=== PATIENT | male | born 1945 | race Caucasian/White ===

== ENCOUNTER 2019-06-27 06:00 | Outpatient (RCR) | payer OTHER, MEDICARE, SELFPAY | END 2019-07-27 00:01 | LOC: PULRHB 06:00 | PROVIDERS: Family Provider Internal Medicine; Visit Provider Internal Medicine Pulmonary Disease | DX: J44.9 Chronic obstructive pulmonary disease, unspecified (principal) | CPT/HCPCS: G0424 ×9 ==

== ENCOUNTER 2019-07-28 06:00 | Outpatient (RCR) | payer OTHER, MEDICARE, SELFPAY | END 2019-08-27 23:59 | disposition home or self-care (01) | LOC: PULRHB 06:00 | PROVIDERS: Family Provider Nurse Practitioner Family; PCP Nurse Practitioner Family; Visit Provider Internal Medicine | DX: J44.9 Chronic obstructive pulmonary disease, unspecified (principal) | CPT/HCPCS: G0424 ==

== ENCOUNTER 2019-08-31 14:14 | Outpatient (RCR) | payer OTHER, MEDICARE, SELFPAY | END 2019-09-25 23:59 | disposition home or self-care (01) | LOC: PULRHB 14:14 | PROVIDERS: Family Provider Nurse Practitioner Family; PCP Nurse Practitioner Family; Visit Provider Internal Medicine | DX: J44.9 Chronic obstructive pulmonary disease, unspecified (principal) | CPT/HCPCS: G0424 ==

== ENCOUNTER 2019-09-16 12:55 | Outpatient (CLI) | payer OTHER, MEDICARE, SELFPAY ==
--- NOTE | 2019-09-16 13:17 | XR_ITS ---
WS: [id number] CHEST 2 VIEWS HISTORY: CHEST PAIN, SHORTNESS OF BREATH COMPARISON: 07/23/2019 and 07/18/2019 Lungs: Pulmonary hyperinflation. Asymmetric thickening of the pleura at the RIGHT apex. Pleural thick ening and nodularity perhaps has progressed over the last few examinations. There is small amount of pleural thickening at the LEFT apex but this is asymmetric to the RIGHT. Marked flattening of the jovita phragm. No pleural effusion. Cardiac size: Normal. Mediastinum/Aorta: Mild atherosclerosis aorta. Bones: Increase in thoracic kyphosis. XR/XR chest 2V* [id number] IMPRESSION: 1. Continued progression of RIGHT apical pleural thickening and nodularity sin ce 07/18/2019. Recommend follow-up chest CT with IV contrast. Apical neoplasm n eeds to be excluded. 2. Asymmetric minimal pleural thickening at the LEFT apex is stable.
== END 2019-09-16 12:56 | disposition home or self-care (01) ==
LOC: RADWPI 13:01
PROVIDERS: Family Provider Nurse Practitioner Family; PCP Internal Medicine; Visit Provider Internal Medicine Pulmonary Disease
DX: R07.9 Chest pain, unspecified (principal); R06.02 Shortness of breath
CPT/HCPCS: 71046

== ENCOUNTER 2019-09-16 19:27 | Emergency (ER) | payer OTHER, MEDICARE, SELFPAY ==
--- NOTE | 2019-09-16 19:32 | ECG_ITS ---
Measurements Intervals [place] Rate: 89 P: [place]: 0 QRS: 48 QRSD: 135 T: 103 QT: 379 QTc: 463 ATRIAL FIBRILLATION LEFT BUNDLE BRANCH BLOCK [120+ ms QRS DURATION, 80+ ms Q/S IN V1/V2, 85+ ms R IN I/aV I/aVL/V5/V6] Compared to ECG 07/23/2019 12:38:10 Sinus rhythm no longer present Ventricular premature complex(es) no longer present Electronically Signed On 09-17-2019 14:12:25 ROUTER OPERATOR PIN by Julio Cesar Garcia M.D. [email or web address]
--- NOTE | 2019-09-16 19:32 | XR_ITS ---
WS: [id number] XR chest 1V portable [id number] REASON FOR EXAM: elevated blood pressure FINDINGS: Hyper aerated lungs are seen. Along the right apex the lung there is again noted pleural th ickening and scarring. This is somewhat similar to the previous exam of September 16, 2019. We continu e to recommend CT evaluation to rule out tuberculosis or active process. The heart and mediastinum were normal there is arteriosclerotic changes seen in the arch of the aorta . The hilum was were normal bilaterally There is mild thickening of the apex on the left side also. XR/XR chest 1V portable [id number] IMPRESSION: Chronic obstructive pulmonary disease. Apical thickening particularly the right upper apical portion we recommend foll ow-up with CT be made.
[2019-09-16 19:51] VITALS: BP 153/111; PULSE 111; RESP 16; TEMP 36.9; O2SAT 90; BMI 22.7
[2019-09-16 20:06] LABS: Basophils # 0.1 10^3/uL (0.0-0.1); Basophils % 1.4 %; Eosinophils # 0.3 10^3/uL (0.0-0.8); Hematocrit 39.7 % (42.0-52.0); Hemoglobin 12.1 g/dL (11.7-16.6); Lymphocytes # 2.1 10^3/uL (0.8-4.8); Lymphocytes % 33.1 %; Mean Corpuscular HGB Conc 30.5 g/dL (30.0-36.0); Mean Corpuscular Hemoglobin 25.3 pg (28.0-34.0); Mean Corpuscular Volume 82.9 fL (80-94); Mean Platelet Volume 11.6 fL (7.4-10.4); Monocytes # 0.7 10^3/uL (0.2-0.9); Neutrophils # 3.1 10^3/uL (1.8-7.7); Neutrophils % 48.9 %; Nucleated Red Blood Cells % 0 %; Platelet Count 248 10^3/cmm (130-400); Red Blood Count 4.79 10^6/uL (4.1-5.3); Red Cell Distribution Width 15.4 % (12.1-15.1); White Blood Count 6.3 10^3/uL (4.0-10.0)
[2019-09-16 20:24] LABS: Alanine Aminotransferase 19 U/L (0-41); Alkaline Phosphatase 136 IU/L (40-130); Aspartate Amino Transferase 19 U/L (0-40); Blood Urea Nitrogen 23 mg/dL (8-23); Calcium 10.1 mg/dL (8.5-10.5); Carbon Dioxide 28 mmol/L (22-29); Chloride 100 mmol/L (98-107); Globulin 3.5 g/dL (1.3-4.6); Glucose 218 mg/dL (65-115); Sodium 139 mmol/L (136-145); Total Bilirubin 0.2 mg/dL (0.15-1.2); Total Protein 7.5 g/dL (6.6-8.7); Troponin(5th) Baseline 15 ng/mL (0-15)
--- NOTE | 2019-09-16 21:22 | W.ED.GENADLT ---
HPI - General Adult General: Chief complaint: General Medical Stated complaint: high bp Time Seen by Provider: 09/16/19 21:10 Source: patient Mode of arrival: ambulatory Limitations: no limitations History of Present Illness: HPI narrative: Patient comes in today with concern for elevated blood pressure this evening. Patient noticed that his blood pressure had started going up. Patient had had a recent increase in his medication due to his blood pressure being poorly controlled. Patient denies any increase in shortness of breath, chest pain, or severe headache. Patient did state that his face felt a little flushed. Review of Systems General: Reports: 10 or more systems reviewed and unremarkable except in HPI and below PFSH ED PFS: Medical History (Updated 09/16/19 @ 21:59 by ABIEL Garcias) Anticoagulation adequate Eliquis ASHD (arteriosclerotic heart disease) Atrial fibrillation Carotid stenosis, bilateral CHF (congestive heart failure) CKD (chronic kidney disease) COPD (chronic obstructive pulmonary disease) Diabetes 1.5, managed as type 2 HTN (hypertension) Hyperlipidemia LBBB (left bundle branch block) MOSHE (obstructive sleep apnea) Surgical History S/P carotid endarterectomy Social History Smoking and tobacco status: never smoked Alcohol intake: never Household members: spouse Marital status: service: Yes Physical Exam Const: COMMON NORMALS: no apparent distress and oriented x3 GENERAL APPEARANCE: cooperative HENMT: COMMON NORMALS: normocephalic, external ears normal, EAC's normal, TM's normal bilaterally and external nose normal HEAD & SCALP: normal to inspection and normocephalic FACE & SINUS: normal facial exam NOSE: external nose normal GENERAL EAR: hearing not grossly impaired EXTERNAL EAR: Yes external ears normal EXTERNAL AUDITORY CANAL: EAC's normal TYMPANIC MEMBRANE: TM's normal bilaterally MOUTH: oral and palatal mucosa normal THROAT: posterior oropharynx normal Eye: COMMON NORMALS: PERRL and EOMs intact bilaterally PUPIL: Yes PERRL Neck/C-Spine: COMMON NORMALS: full ROM and no lymphadenopathy Lymph: LYMPHATIC: no lymphedema noted Chest: COMMONS NORMALS: inspection of chest normal and palpation of chest normal Resp: COMMON NORMALS: normal respiratory effort and clear to auscultation bilaterally AUSCULTATION: clear to auscultation bilaterally Cardio: COMMON NORMALS: regular rate and regular rhythm RATE: regular rate RHYTHM: regular rhythm GI: COMMON NORMALS: normal to inspection, nondistended, normoactive bowel sounds and non-tender : COMMON NORMALS: Yes no CVA tenderness BLADDER/KIDNEY EXAM: Yes no CVA tenderness Back/Pelvis: COMMON NORMALS: no CVA tenderness and thoracic and lumbar spine normal to inspection Extremity: COMMON NORMALS: normal to inspection GENERAL: No edema Neuro: COMMON NORMALS: oriented x3, moves all extremities and no focal motor deficits Psych: COMMON NORMALS: mental status grossly normal and cooperative Skin: COMMON NORMALS: no rashes or lesions noted GENERAL SKIN EXAM: no rashes or lesions noted Course Vital Signs: Vital signs: Vital Signs Temperature 98.5 F 09/16/19 19:51 Pulse Rate 111 H 09/16/19 19:51 Respiratory Rate 16 09/16/19 19:51 Blood Pressure 153/111 09/16/19 19:51 Pulse Oximetry 90 09/16/19 19:51 MDM - General Adult MDM Narrative: Medical decision making narrative: Patient comes in today for concerns of elevated blood pressure. Patient reports that he is no complaints of headache, chest pain, or shortness of breath. Patient does have a history of atrial fib and COPD. On exam patient appears well. Lungs are clear to auscultation. Heart rates are regular. Abdomen soft nontender. Skin is warm and dry. Differential diagnosis includes ACS, cardiac arrhythmia, atrial fib, hypertensive crisis, anxiety. Vital signs stabilized and remained normal. High blood pressure was at 155 systolic but came down to 138 systolic. Chest x-ray noted no infiltrates or effusions. Laboratory values were normal troponin was normal. EKG showed atrial fib in the 80s. Reviewed exam with patient recommended continue routine treatment at home and to return to the ER as needed for severe headache, shortness of breath, or chest pain. Patient reported understanding and agreed to plan. Lab Data: Labs: Lab Results 09/16/19 09/16/19 09/16/19 Range/Units 19:58 19:58 19:58 WBC 6.3 (4.0-10.0) 10^3/ uL RBC 4.79 (4.1-5.3) 10^6/u L Hgb 12.1 (11.7-16.6) g/dL Hct 39.7 L (42.0-52.0) % MCV 82.9 (80-94) fL MCH 25.3 L (28.0-34.0) pg MCHC 30.5 (30.0-36.0) g/dL RDW 15.4 H (12.1-15.1) % Plt Count 248 (130-400) 10^3/c mm MPV 11.6 H (7.4-10.4) fL Neut % (Auto) 48.9 % Lymph % (Auto) 33.1 % Hood % (Auto) 11.0 % Eos % (Auto) 5.0 % Baso % (Auto) 1.4 % Neut # (Auto) 3.1 (1.8-7.7) 10^3/u L Lymph # (Auto) 2.1 (0.8-4.8) 10^3/u L Hood # (Auto) 0.7 (0.2-0.9) 10^3/u L Eos # (Auto) 0.3 (0.0-0.8) 10^3/u L Baso # (Auto) 0.1 (0.0-0.1) 10^3/u L Nucleated RBC % (a uto) 0 % Nucleated RBCs # 0.0 /100WBC Sodium 139 (136-145) mmol/L Potassium 4.0 (3.5-5.1) mmol/L Chloride 100 (98-107) mmol/L Carbon Dioxide 28 (22-29) mmol/L Anion Gap 15.0 (5-19) BUN 23 (8-23) mg/dL Creatinine 1.1 (0.7-1.2) mg/dL Glucose 218 H (65-115) mg/dL Calcium 10.1 (8.5-10.5) mg/dL Total Bilirubin 0.2 (0.15-1.2) mg/dL AST 19 (0-40) U/L ALT 19 (0-41) U/L Alkaline Phosphata se 136 H (40-130) IU/L Troponin T Baselin e 15 (0-15) ng/mL Total Protein 7.5 (6.6-8.7) g/dL Albumin 4.0 (3.5-5.2) g/dL Globulin 3.5 (1.3-4.6) g/dL EKG Data^: EKG 1: Attestation: I personally reviewed and interpreted this EKG as follows: (2131, a-fib, rate 89, no ST elevation, ) Discharge Plan Discharge Patient Disposition: Home, Self-Care Clinical Impression: Hypertension Qualifiers: Hypertension type: unspecified Qualified Code(s): I10 - Essential (primary) hypertension Atrial fibrillation Qualifiers: Atrial fibrillation type: unspecified chronic Qualified Code(s): I48.20 - Chronic atrial fibrillation, unspecified Condition: Stable Prescriptions: No Action Eliquis 5 mg tablet 5 mg PO BID RF: 0 atorvastatin 20 mg tablet 20 mg PO QDAY RF: 0 Daliresp 500 mcg tablet 500 mcg PO QDAY RF: 0 Spiriva with HandiHaler 18 mcg capsule, w/inhalation device 1 cap INHALATION QDAY RF: 0 Symbicort 160-4.5 mcg/actuation HFA aerosol inhaler 2 puff INHALATION BID RF: 0 metformin 500 mg tablet 500 mg PO BID RF: 0 lisinopril 40 mg tablet 40 mg PO QDAY RF: 0 omeprazole 20 mg capsule,delayed release(DR/EC) 20 mg PO QDAY RF: 0 alendronate 70 mg tablet 70 mg PO .WEEKLY RF: 0 amlodipine 10 mg tablet 10 mg PO QDAY RF: 0 metoprolol tartrate 25 mg tablet 50 mg PO BID RF: 0 furosemide 40 mg tablet 40 mg PO DAILY RF: 0 Discharge Orders: Discharge Order (Routine); Ordered 09/16/19 Ordered By: Hill Ayala Referrals: Cr Connor [Primary Care Provider] - Jina Hooper FNP-C [Family Provider] - Discharge Diet: Usual diet Discharge Activity: Resume usual activity Patient Instructions: Hypertension (ED) Activity Restrictions/Additional Instructions: Home and rest Activity as tolerated Continue with routine medications Follow-up with primary care in one week Return to ER for severe headache, increased shortness of breath or chest pain Coding Level of Care Code ED Supply Chain Development Manager for Chg Fwd Exam Comprehensive
[2019-09-16 22:22] VITALS: BP 136/93; PULSE 81; RESP 16; TEMP 36.7; O2SAT 98
[2019-09-16 23:21] LABS: Troponin 5 2HR 15.65 ng/mL (0-15); Troponin 5 2HR Delta 0.65 ABS# (0-10)
[2019-09-16 23:58] LABS: NT Pro B Type Natriuretic Pept 184 pg/mL (0-125)
== END 2019-09-16 22:23 | disposition home or self-care (01) ==
PROVIDERS: Emergency Provider Nurse Practitioner Family; Family Provider Nurse Practitioner Family; PCP Internal Medicine
DX: I13.0 Hypertensive heart and chronic kidney disease with heart failure and stage 1 through stage 4 chronic kidney disease, or unspecified chronic kidney disease (principal); N18.9 Chronic kidney disease, unspecified; I50.9 Heart failure, unspecified; I25.10 Atherosclerotic heart disease of native coronary artery without angina pectoris; I48.91 Unspecified atrial fibrillation; J44.9 Chronic obstructive pulmonary disease, unspecified; E13.22 Other specified diabetes mellitus with diabetic chronic kidney disease; E78.5 Hyperlipidemia, unspecified; Z79.01 Long term (current) use of anticoagulants; Z79.51 Long term (current) use of inhaled steroids; Z79.84 Long term (current) use of oral hypoglycemic drugs
CPT/HCPCS: 71045; 80053; 83880; 84484; 85025; 93005; 99281; 99283

== ENCOUNTER 2019-09-27 12:20 | Emergency (ER) | payer OTHER, MEDICARE, SELFPAY ==
[2019-09-27 13:03] VITALS: BP 149/91; PULSE 68; RESP 16; TEMP 36.6; O2SAT 97; BMI 23.0
--- NOTE | 2019-09-27 13:10 | XR_ITS ---
WS: [id number] XR foot LT min 3V* [id number] REASON FOR EXAM: injury and pain FINDINGS: The phalanges, metatarsals, tarsals show no fractures or other dyscrasias. A prominent calcaneal spur is noted. XR/XR foot LT min 3V* [id number] IMPRESSION: Calcaneal spur.
--- NOTE | 2019-09-27 14:53 | ED_ITS ---
HPI - Extremity Problem General: Chief complaint: Extremity Injury, Lower Stated complaint: L foot injury Time Seen by Provider: 09/27/19 14:52 History of Present Illness: HPI Narrative: Patient is a 74-year-old male comes to the ED with left foot pain. Patient has a past medical history of A. fib, COPD and hypertension. Patient states that on Friday evening he was working in his garage and a 50+ pound piece of steel fell from counter height and hit patient's left midfoot region. He now has some pain when he walks and his left foot is swollen and has some ecchymosis. Patient is able to bear weight and states that the pain is only about a 4-5 out of 10 currently. He does not like taking any pain medications and does not want any pain meds while here in the ED. Associated symptoms: Deny chest pain, fever(s) or rash Review of Systems Const: Denies: fever, chills or fatigue Eyes: Denies: change in vision or eye discomfort ENMT: Denies: throat pain, painful swallowing, nasal discharge or nasal congestion Card: Denies: chest pain, palpitations, edema, swelling of feet/ankles, shortness of breath on exertion or shortness of breath when lying down Resp: Denies: shortness of breath, productive cough or non-productive cough GI: Denies: abdominal pain, nausea, vomiting, diarrhea, constipation or blood in stool : Denies: flank pain, difficulty urinating, painful urination or blood in urine Musc: Reports: extremity pain (Left Foot) and extremity swelling (Left foot); Denies: neck pain or back pain Skin/Breast: Denies: rash or new lesion Neuro: Denies: headache, numbness in extremities or weakness in extremities [facility] ED PFSH: Medical History Anticoagulation adequate Eliquis ASHD (arteriosclerotic heart disease) Atrial fibrillation Carotid stenosis, bilateral CHF (congestive heart failure) CKD (chronic kidney disease) COPD (chronic obstructive pulmonary disease) Diabetes 1.5, managed as type 2 HTN (hypertension) Hyperlipidemia LBBB (left bundle branch block) MOSHE (obstructive sleep apnea) Surgical History S/P carotid endarterectomy Family History Mother , AGE 64 Diabetes Cancer Father , AGE 62 CAD (coronary artery disease) Social History Smoking and tobacco status: never smoked Alcohol intake: never Household members: spouse Marital status: service: Yes Physical Exam Const: COMMON NORMALS: oriented x3 HENMT: COMMON NORMALS: normocephalic HEAD & SCALP: normocephalic MOUTH: oral and palatal mucosa normal THROAT: posterior oropharynx normal and uvula midline Neck/C-Spine: COMMON NORMALS: supple GENERAL: Yes normal visual inspection Resp: COMMON NORMALS: normal respiratory effort, no retractions, no use of accessory muscles and clear to auscultation bilaterally AUSCULTATION: clear to auscultation bilaterally Cardio: COMMON NORMALS: regular rate, regular rhythm, S1 normal heart sound, S2 normal heart sound, no gallops, no clicks, no murmurs and peripheral pulses 2+ throughout RATE: regular rate RHYTHM: regular rhythm HEART SOUNDS: S1 normal and S2 normal PERIPHERAL PULSES: pulses 2+ throughout GI: COMMON NORMALS: normal to inspection, nondistended, normoactive bowel sounds, soft to palpation, non-tender and no masses PALPATION: Yes soft : COMMON NORMALS: Yes no CVA tenderness BLADDER/KIDNEY EXAM: Yes no CVA tenderness Back/Pelvis: COMMON NORMALS: no CVA tenderness Extremity: LEFT LOWER EXTREMITY: Yes foot & digits (swelling and ecchymosis ) Left foot and digits: Yes inspection, Yes palpation (mild tenderness over medial mid foot.), Yes ROM (normal but some pain) and Yes neurovascular exam (intact) Neuro: COMMON NORMALS: oriented x3 and moves all extremities Course Consultations: Consultation #1: I spoke with radiologist and we looked over the images together. He did think there is a possibility that there could be a metatarsal fracture but was not able to say that for sure. He thought if patient clinically looks like he probably fractured it that he would treat it like a fracture. He stated he thinks the patient should come back and get imaging again in the next week to see if there is any changes. Vital Signs: Vital signs: Vital Signs Temperature 97.8 F 09/27/19 13:03 Pulse Rate 68 09/27/19 13:03 Respiratory Rate 18 09/27/19 16:59 Blood Pressure 149/91 09/27/19 13:03 Pulse Oximetry 94 09/27/19 16:59 MDM - Extremity (Nontraumatic) Imaging Data^: Xray Ortho: Attestation: I personally reviewed and interpreted this imaging study as follows: My impression: Possible second metatarsal proximal head fracture. Radiologist's impression: [address] [address] XRay Report Signed Patient: Jonathan Sultana Unit #: [id number] : 1945 Age/Sex: 74 / M ADM Date: 09/27/19 Loc: ER Room/Bed: Attending Dr: Ordering Provider/Ordering MD: Flaquito Lewis Date of Service: 09/27/19 Procedure(s): XR foot LT min 3V* 49000 Accession Number(s): [id number] Report Number: [id number] WS: [id number] XR foot LT min 3V* [id number] REASON FOR EXAM: injury and pain FINDINGS: The phalanges, metatarsals, tarsals show no fractures or other dyscrasias. A prominent calcaneal spur is noted. XR/XR foot LT min 3V* 11579 IMPRESSION: Calcaneal spur. Dictated By: Bryan Norris DO Signed By: Bryan Norris DO Signed Date/Time: 09/27/19 1344 DD/ 1343 Discharge Plan Discharge Patient Disposition: Home, Self-Care Clinical Impression: Metatarsal stress fracture of left foot Qualifiers: Encounter type: initial encounter Qualified Code(s): M84.375A - Stress fracture, left foot, initial encounter for fracture Condition: Stable Prescriptions: No Action Eliquis 5 mg tablet 5 mg PO BID RF: 0 atorvastatin 20 mg tablet 20 mg PO QDAY RF: 0 Daliresp 500 mcg tablet 500 mcg PO QDAY RF: 0 Spiriva with HandiHaler 18 mcg capsule, w/inhalation device 1 cap INHALATION QDAY RF: 0 Symbicort 160-4.5 mcg/actuation HFA aerosol inhaler 2 puff INHALATION BID RF: 0 metformin 500 mg tablet 500 mg PO BID RF: 0 lisinopril 40 mg tablet 40 mg PO QDAY RF: 0 omeprazole 20 mg capsule,delayed release(DR/EC) 20 mg PO QDAY RF: 0 alendronate 70 mg tablet 70 mg PO .WEEKLY RF: 0 amlodipine 10 mg tablet 10 mg PO QDAY RF: 0 metoprolol tartrate 25 mg tablet 50 mg PO BID RF: 0 furosemide 40 mg tablet 40 mg PO DAILY RF: 0 Discharge Orders: Discharge Order (Routine); Ordered 09/27/19 Ordered By: Flaquito Lewis Referrals: Cr Connor [Primary Care Provider] - Jina Hooper FNP-C [Family Provider] - Discharge Diet: Regular Discharge Activity: Use walker/crutches as instructed Patient Instructions: Foot Fracture in Adults (ED) Activity Restrictions/Additional Instructions: Wound see orthopedic and or podiatry will be calling you to set up an appointment in the next several days. Wear boot daily and weight-bear as tolerated. Take [id number] Tylenol for pain. Discharge Date/Time: 09/27/19 16:59 Coding Level of Care Code ED Pediatric Psychologist for Rehanag Fwd Exam Comprehensive
[2019-09-27 15:00] VITALS: RESP 16
--- NOTE | 2019-09-27 15:47 | DCPLANNER ---
stallion manager was asked to schedule a follow up appointment for patient with ortho. Case manger called the ortho clinic, spoke with Pat, gave clinic patients information. stallion manager was told that patients information would be printed and reviewed. Clinic will call showcase trimmer and patient with appointment information.
[2019-09-27 16:59] VITALS: RESP 18; O2SAT 94
--- NOTE | 2019-10-05 15:05 | DCPLANNER ---
Patient has a follow up appointment scheduled for Friday, October 18, [address] ravindra [address] Hinkle. Clinic will call patient with appointment information.
--- NOTE | 2019-10-22 14:39 | DCPLANNER ---
Patient did attend appointment scheduled for 10.18.19 with ortho.
== END 2019-09-27 16:59 | disposition home or self-care (01) ==
PROVIDERS: Emergency Provider Physician Assistant; Family Provider Nurse Practitioner Family; PCP Internal Medicine
DX: M84.375A Stress fracture, left foot, initial encounter for fracture (principal); I25.10 Atherosclerotic heart disease of native coronary artery without angina pectoris; I48.91 Unspecified atrial fibrillation; I13.0 Hypertensive heart and chronic kidney disease with heart failure and stage 1 through stage 4 chronic kidney disease, or unspecified chronic kidney disease; I50.9 Heart failure, unspecified; E13.22 Other specified diabetes mellitus with diabetic chronic kidney disease; N18.9 Chronic kidney disease, unspecified; J44.9 Chronic obstructive pulmonary disease, unspecified; E78.5 Hyperlipidemia, unspecified; Z79.01 Long term (current) use of anticoagulants; Z79.51 Long term (current) use of inhaled steroids; Z79.84 Long term (current) use of oral hypoglycemic drugs; W20.8XXA Other cause of strike by thrown, projected or falling object, initial encounter; Y92.015 Private garage of single-family (private) house as the place of occurrence of the external cause
CPT/HCPCS: 73630; 99281; 99283; L4361

== ENCOUNTER → 2019-10-18 14:34 | Outpatient (BNVA) | payer OTHER, SELFPAY | PROVIDERS: Family Provider Nurse Practitioner Family; PCP Internal Medicine; Referring Provider Physician Assistant; Visit Provider Podiatrist Foot & Ankle Surgery | DX: M79.672 Pain in left foot (principal) | CPT/HCPCS: 73630 ==

== ENCOUNTER 2019-12-01 23:06 | Inpatient (IN) | payer OTHER, MEDICARE, SELFPAY ==
[2019-12-01 23:17] VITALS: BP 166/121; PULSE 128; RESP 18; TEMP 36.6; O2SAT 99; BMI 23.7
--- NOTE | 2019-12-01 23:19 | XR_ITS ---
WS: [id number] CHEST XRAY TECHNIQUE: Portable chest. CLINICAL INFORMATION: PALPS COMPARISON: September 16, 2019 FINDINGS: Heart: Normal cardiac silhouette. Lungs: Advanced chronic emphysematous changes. No acute pulmonary infiltrates. Interstitial fibrosis/ subsegmental atelectasis in the lung bases. Trace pleural fluid/pleural thickening. Bones: Normal visualized bony structures. XR/XR chest 1V portable [id number] IMPRESSION: 1. Advanced chronic emphysematous changes. 2. No focal pneumonia. 3. Stable appearing interstitial fibrosis in the lung bases. Trace pleural flu id/pleural thickening.
--- NOTE | 2019-12-01 23:19 | PC.NURSE ---
PATIENT STATES HE STARTED HAVING SHORTNESS OF BREATH AND HE STARTED HAVING A RACING HEART . PATIENT STATES THIS STARTED AT 1830 TONIGHT. PATIENT STATES HE IS ON BLOOD THINNERS. PATIENT STATES HE HAD TWO EPISODES OF HIGH HEART RATE TODAY.
--- NOTE | 2019-12-01 23:20 | ECG_ITS ---
Measurements Intervals [place] Rate: 98 P: [place]: 0 QRS: 75 QRSD: 142 T: 79 QT: 354 QTc: 454 ATRIAL FIBRILLATION LEFT BUNDLE BRANCH BLOCK Compared to ECG 09/16/2019 21:31:53 No significant changes Electronically Signed On 12-02-2019 14:17:10 CDT by Lauren Spangler M.D. [id number]
[2019-12-01 23:30] VITALS: BP 145/92; PULSE 107; RESP 14; O2SAT 99
[2019-12-01] MEDS: metoprolol tartrate 1 mg/1 mL SDV 5 mL 5 MG IV (23:36)
--- NOTE | 2019-12-01 23:40 | W.ED.SOB ---
HPI - SOB/Dyspnea General: Chief Complaint: Shortness of Breath/Dyspnea Stated Complaint: high hr Time Seen by Provider: 12/01/19 23:15 History of Present Illness: HPI Narrative: Jonathan is a very nice 74-year-old male who comes in complaining of intermittent rapid palpitations and shortness of breath. Patient states he has had similar symptoms before related to his atrial fibrillation. He denies any chest pain, syncope or near syncopal type symptoms. He did take his nighttime medications including metoprolol but is still having the symptoms intermittently. He denies missing any medications, any increased caffeine intake and the patient is chronically anticoagulated. Associated symptoms: Reports palpitations; Deny abdominal pain, chest congestion, chest pain, diaphoresis, dizziness, extremity pain, fever(s), hemoptysis, nausea, orthopnea, polydipsia, syncope or vomiting Review of Systems General: Reports: other (negative unless marked) Const: Denies: fever, chills, body aches, fatigue, malaise or diaphoresis Eyes: Denies: change in vision or blurry vision ENMT: Denies: throat pain, painful swallowing, hoarseness, ear pain, ear discharge, Change in hearing or nasal discharge Card: Reports: palpitations; Denies: chest pain, irregular heart rhythm, syncope, pre-syncope, shortness of breath on exertion or shortness of breath when lying down Resp: Reports: shortness of breath; Denies: productive cough, non-productive cough, wheezing, coughing up blood or chest congestion GI: Denies: abdominal pain, nausea, vomiting, vomiting blood, coffee grounds in vomit, diarrhea, constipation, cramping, blood in stool or black tarry stool : Denies: flank pain, difficulty urinating, painful urination, urinary frequency, urinary urgency, decreased urine ouput, urinary incontinence or blood in urine Musc: Denies: neck pain, back pain, extremity pain, extremity swelling, joint pain, joint swelling, joint warmth or joint stiffness Skin/Breast: Denies: rash, skin tenderness or yellow skin Neuro: Denies: headache, numbness in extremities, weakness in extremities, changes in sensation, lack of coordination, difficulty walking, dizziness, vertigo or confusion Endo: Denies: excessive thirst, tired all the time, cold intolerance, excessive sweating, flushing or hot flashes Frank/Lymph: Denies: easy bruising, easy bleeding, petechiae or enlarged lymph nodes All/Imm: Denies: hives, throat swelling, tongue swelling, facial swelling or acute wheezing PFSH ED PFSH: Medical History Anticoagulation adequate Eliquis ASHD (arteriosclerotic heart disease) Atrial fibrillation Carotid stenosis, bilateral CHF (congestive heart failure) CKD (chronic kidney disease) COPD (chronic obstructive pulmonary disease) Diabetes 1.5, managed as type 2 Fracture of second metatarsal bone GERD (gastroesophageal reflux disease) HTN (hypertension) Hyperlipidemia LBBB (left bundle branch block) MOSHE (obstructive sleep apnea) RLS (restless legs syndrome) Surgical History S/P carotid endarterectomy S/P carpal tunnel release S/P sinus surgery Family History Mother , AGE 64 Diabetes Cancer Father , AGE 62 CAD (coronary artery disease) Social History Smoking and tobacco status: never smoked Alcohol intake: never Household members: spouse Marital status: service: Yes Physical Exam Const: COMMON NORMALS: no apparent distress, oriented x3, no limitations, healthy appearing and well nourished EXAM LIMITATIONS: no altered mental status GENERAL APPEARANCE: cooperative, well kempt and well developed ORIENTATION/CONSCIOUSNESS: Yes awake HENMT: COMMON NORMALS: normocephalic, head/scalp atraumatic, hearing grossly normal bilaterally, external ears normal, EAC's normal, external nose normal and moist oral mucous membranes HEAD & SCALP: normal to inspection, normocephalic and atraumatic FACE & SINUS: normal facial exam and face symmetric NOSE: external nose normal and nares normal EXTERNAL EAR: Yes external ears normal EXTERNAL AUDITORY CANAL: EAC's normal MOUTH: oral and palatal mucosa normal and tongue normal Eye: COMMON NORMALS: PERRL, EOMs intact bilaterally, conjunctivae normal and no scleral icterus GENERAL EYE: normal appearance of both eyes and normal light reflex CONJUNCTIVA: Yes conjunctivae normal SCLERA: sclerae normal CORNEA: Yes corneas normal PUPIL: Yes PERRL DIRECT OPHTHALMOSCOPY: Yes normal light reflex Neck/C-Spine: COMMON NORMALS: full ROM, no lymphadenopathy, supple, no meningeal signs and no JVD GENERAL: Yes normal visual inspection and Yes trachea midline CERVICAL SPINE: Yes cervical ROM normal Chest: COMMONS NORMALS: inspection of chest normal and palpation of chest normal Resp: COMMON NORMALS: normal respiratory effort, no retractions, no use of accessory muscles and clear to auscultation bilaterally EFFORT & INSPECTION: Yes able to speak in complete sentences AUSCULTATION: clear to auscultation bilaterally Cardio: COMMON NORMALS: no JVD, S1 normal heart sound, S2 normal heart sound, no gallops, no clicks, no murmurs and no rub JUGULAR VENOUS DISTENTION: no JVD RATE: tachycardic RHYTHM: abnormal rhythm irregularly irregular HEART SOUNDS: S1 normal and S2 normal GI: COMMON NORMALS: soft to palpation, non-tender, no hepatosplenomegaly and no masses INSPECTION: Yes normal to inspection PALPATION: Yes soft and Yes no hepatosplenomegaly : COMMON NORMALS: Yes no CVA tenderness BLADDER/KIDNEY EXAM: Yes no CVA tenderness Back/Pelvis: COMMON NORMALS: no CVA tenderness, thoracic and lumbar spine normal to inspection, no thoracic nor lumbar tenderness and thoraco-lumbar ROM normal Extremity: COMMON NORMALS: normal to inspection, full ROM, normal capillary refill, no joint enlargement, no clubbing, cyanosis or edema and no calf tenderness Neuro: COMMON NORMALS: oriented x3, CN's II-XII intact bilaterally, moves all extremities, no focal motor deficits and no sensory deficits noted MENINGEAL SIGNS: Yes no meningeal signs Psych: COMMON NORMALS: mental status grossly normal, thought process normal, cooperative, affect normal, speech normal and activity/motor behavior normal APPEARANCE: Yes well kempt SPEECH: Yes normal speech THOUGHT PROCESS: normal thought process Skin: COMMON NORMALS: no rashes or lesions noted, skin turgor normal, no jaundice, no petechiae and no mottling GENERAL SKIN EXAM: no rashes or lesions noted and turgor normal Course Vital Signs: Vital signs: Vital Signs Temperature 98.2 F 12/02/19 03:44 Pulse Rate 84 12/02/19 04:21 Respiratory Rate 18 12/02/19 04:15 Blood Pressure 150/83 12/02/19 03:44 Pulse Oximetry 98 12/02/19 04:21 MDM - SOB/Dyspnea MDM Narrative: Medical decision making narrative: The patient has been given 10 mg of IV metoprolol but his heart rate will still not slow. He is asymptomatic at rest but when he gets up he gets extremely short of breath. He is not coughing and not wheezing I do not believe this is a COPD exacerbation. Is not having chest discomfort I do not believe this is acute coronary syndrome. His BNP is high but his chest x-ray does not look like pulmonary edema and I do not hear rales on exam. I believe though he will likely need to come into the hospital for heart rate management. I reviewed the case in full with Dr. Gray, he agrees to come evaluate the patient and consider him for admission for heart rate control. Lab Data: Labs: Lab Results 12/01/19 12/01/19 12/01/19 Range/Units 23:24 23:35 23:35 WBC 10.2 H (4.0-10.0) 10^3/ uL RBC 4.70 (4.1-5.3) 10^6/u L Hgb 12.4 (11.7-16.6) g/dL Hct 39.5 L (42.0-52.0) % MCV 84.0 (80-94) fL MCH 26.4 L (28.0-34.0) pg MCHC 31.4 (30.0-36.0) g/dL RDW 15.6 H (12.1-15.1) % Plt Count 260 (130-400) 10^3/c mm MPV 11.6 H (7.4-10.4) fL Neut % (Auto) 54.1 % Lymph % (Auto) 27.2 % Marshall % (Auto) 13.9 % Eos % (Auto) 1.5 % Baso % (Auto) 1.2 % Neut # (Auto) 5.5 (1.8-7.7) 10^3/u L Lymph # (Auto) 2.8 (0.8-4.8) 10^3/u L Marshall # (Auto) 1.4 H (0.2-0.9) 10^3/u L Eos # (Auto) 0.2 (0.0-0.8) 10^3/u L Baso # (Auto) 0.1 (0.0-0.1) 10^3/u L Nucleated RBC % (a uto) 0 % Nucleated RBCs # 0.0 /100WBC PT 14.30 H (10.5-13.3) SECO NDS INR 1.08 (0.8-1.2) Sodium (136-145) mmol/L Potassium (3.5-5.1) mmol/L Chloride (98-107) mmol/L Carbon Dioxide (22-29) mmol/L Anion Gap (5-19) BUN (8-23) mg/dL Creatinine (0.7-1.2) mg/dL Glucose (65-115) mg/dL Calculated Osmolal ity (285-295) mOsm/k g Calcium (8.5-10.5) mg/dL Magnesium (1.7-2.3) mg/dL Total Bilirubin (0.15-1.2) mg/dL AST (0-40) U/L ALT (0-41) U/L Alkaline Phosphata se (40-130) IU/L Troponin T Baselin e (0-15) ng/mL Troponin T 120 [address] [place] (0-15) ng/mL Delta Troponin T (0-10) ABS# NT-Pro-B Natriuret Pep (0-125) pg/mL Total Protein (6.6-8.7) g/dL Albumin (3.5-5.2) g/dL Globulin (1.3-4.6) g/dL TSH (0.27-4.20) uIU/ mL Urine Color Yellow (Yellow) Urine Appearance Clear (CLEAR) Urine pH 6.5 (5-7) Ur Specific Gravit y 1.010 (1.005-1.030) Urine Protein Neg (Negative) Urine Glucose (UA) Norm (Normal) Urine Ketones Negative (Negative) Urine Blood Neg (Negative) Urine Nitrate Negative (Negative) Urine Bilirubin Neg (NEGATIVE) Urine Urobilinogen Norm (Negative) mg/dL Ur Leukocyte Sandy ase Negative (Negative) Urine RBC Rare (0-2) /hpf Urine WBC Rare (0-5) /hpf Ur Squamous Epith Cells Rare (0-5) Urine Bacteria Trace (NONE) 12/01/19 12/01/19 12/01/19 Range/Units 23:35 23:35 23:35 WBC (4.0-10.0) 10^3/ uL RBC (4.1-5.3) 10^6/u L Hgb (11.7-16.6) g/dL Hct (42.0-52.0) % MCV (80-94) fL MCH (28.0-34.0) pg MCHC (30.0-36.0) g/dL RDW (12.1-15.1) % Plt Count (130-400) 10^3/c mm MPV (7.4-10.4) fL Neut % (Auto) % Lymph % (Auto) % Marshall % (Auto) % Eos % (Auto) % Baso % (Auto) % Neut # (Auto) (1.8-7.7) 10^3/u L Lymph # (Auto) (0.8-4.8) 10^3/u L Marshall # (Auto) (0.2-0.9) 10^3/u L Eos # (Auto) (0.0-0.8) 10^3/u L Baso # (Auto) (0.0-0.1) 10^3/u L Nucleated RBC % (a uto) % Nucleated RBCs # /100WBC PT (10.5-13.3) SECO NDS INR (0.8-1.2) Sodium 139 (136-145) mmol/L Potassium 4.0 (3.5-5.1) mmol/L Chloride 100 (98-107) mmol/L Carbon Dioxide 25 (22-29) mmol/L Anion Gap 18.0 (5-19) BUN 21 (8-23) mg/dL Creatinine 0.9 (0.7-1.2) mg/dL Glucose 183 H (65-115) mg/dL Calculated Osmolal ity 289 (285-295) mOsm/k g Calcium 9.5 (8.5-10.5) mg/dL Magnesium 1.8 (1.7-2.3) mg/dL Total Bilirubin 0.2 (0.15-1.2) mg/dL AST 21 (0-40) U/L ALT 33 (0-41) U/L Alkaline Phosphata se 141 H (40-130) IU/L Troponin T Baselin e 16 H (0-15) ng/mL Troponin T 120 Min [place] (0-15) ng/mL Delta Troponin T (0-10) ABS# NT-Pro-B Natriuret Pep 1630 H (0-125) pg/mL Total Protein 6.6 (6.6-8.7) g/dL Albumin 3.8 (3.5-5.2) g/dL Globulin 2.8 (1.3-4.6) g/dL TSH 1.84 (0.27-4.20) uIU/ mL Urine Color (Yellow) Urine Appearance (CLEAR) Urine pH (5-7) Ur Specific Gravit y (1.005-1.030) Urine Protein (Negative) Urine Glucose (UA) (Normal) Urine Ketones (Negative) Urine Blood (Negative) Urine Nitrate (Negative) Urine Bilirubin (NEGATIVE) Urine Urobilinogen (Negative) mg/dL Ur Leukocyte Sandy ase (Negative) Urine RBC (0-2) /hpf Urine WBC (0-5) /hpf Ur Squamous Epith Cells (0-5) Urine Bacteria (NONE) 12/02/19 Range/Units 01:29 WBC (4.0-10.0) 10^3/ uL RBC (4.1-5.3) 10^6/u L Hgb (11.7-16.6) g/dL Hct (42.0-52.0) % MCV (80-94) fL MCH (28.0-34.0) pg MCHC (30.0-36.0) g/dL RDW (12.1-15.1) % Plt Count (130-400) 10^3/c mm MPV (7.4-10.4) fL Neut % (Auto) % Lymph % (Auto) % Marshall % (Auto) % Eos % (Auto) % Baso % (Auto) % Neut # (Auto) (1.8-7.7) 10^3/u L Lymph # (Auto) (0.8-4.8) 10^3/u L Marshall # (Auto) (0.2-0.9) 10^3/u L Eos # (Auto) (0.0-0.8) 10^3/u L Baso # (Auto) (0.0-0.1) 10^3/u L Nucleated RBC % (a uto) % Nucleated RBCs # /100WBC PT (10.5-13.3) SECO NDS INR (0.8-1.2) Sodium (136-145) mmol/L Potassium (3.5-5.1) mmol/L Chloride (98-107) mmol/L Carbon Dioxide (22-29) mmol/L Anion Gap (5-19) BUN (8-23) mg/dL Creatinine (0.7-1.2) mg/dL Glucose (65-115) mg/dL Calculated Osmolal ity (285-295) mOsm/k g Calcium (8.5-10.5) mg/dL Magnesium (1.7-2.3) mg/dL Total Bilirubin (0.15-1.2) mg/dL AST (0-40) U/L ALT (0-41) U/L Alkaline Phosphata se (40-130) IU/L Troponin T Baselin e (0-15) ng/mL Troponin T [address] [place] 20.03 H (0-15) ng/mL Delta Troponin T 4.03 (0-10) ABS# NT-Pro-B Natriuret Pep (0-125) pg/mL Total Protein (6.6-8.7) g/dL Albumin (3.5-5.2) g/dL Globulin (1.3-4.6) g/dL TSH (0.27-4.20) uIU/ mL Urine Color (Yellow) Urine Appearance (CLEAR) Urine pH (5-7) Ur Specific Gravit y (1.005-1.030) Urine Protein (Negative) Urine Glucose (UA) (Normal) Urine Ketones (Negative) Urine Blood (Negative) Urine Nitrate (Negative) Urine Bilirubin (NEGATIVE) Urine Urobilinogen (Negative) mg/dL Ur Leukocyte Sandy ase (Negative) Urine RBC (0-2) /hpf Urine WBC (0-5) /hpf Ur Squamous Epith Cells (0-5) Urine Bacteria (NONE) Imaging Data^: CXR: My impression: No acute cardiopulmonary findings. Stable bilateral pleural effusions. EKG Data^: EKG 1: Attestation: I personally reviewed and interpreted this EKG as follows: EKG Interpretation Date: 12/01/19 EKG interpretation time: 23:34 Interpretation: Atrial fibrillation/flutter with a ventricular rate of 98, left bundle branch block. Similar to previous. Discharge Plan Discharge Patient Disposition: Placed in Observation Admit Provider: Reji Gray Clinical Impression: Atrial fibrillation with RVR Condition: Stable Referrals: Cr Connor [Primary Care Provider] - Discharge Date/Time: 12/02/19 03:23 Coding Level of Care Code ED Change House Attendant for Chg Fwd Exam Comprehensive
[2019-12-01 23:41] VITALS: BP 135/80
[2019-12-01 23:46] LABS: Bacteria Urine TRACE; Bilirubin Urine Neg (NEGATIVE); Blood Urine Neg (Negative); Glucose Urine UA Norm (Normal); Ketones Urine Negative (Negative); Leukocyte Esterase Urine Negative (Negative); Nitrate Urine Negative (Negative); Protein Urine Neg (Negative); RBC Urine RARE /hpf (0-2); Squamous Epithelial Cell Urine RARE (0-5); Urine Appearance Clear (CLEAR); Urine Color Yellow (Yellow); Urobilinogen Urine Norm (Negative); WBC Urine RARE /hpf (0-5); pH Urine 6.5 (5-7)
--- NOTE | 2019-12-01 23:48 | PC.NURSE ---
XRAY IN ROOM
[2019-12-01 23:50] LABS: Basophils # 0.1 10^3/uL (0.0-0.1); Basophils % 1.2 %; Eosinophils # 0.2 10^3/uL (0.0-0.8); Eosinophils % 1.5 %; Hematocrit 39.5 % (42.0-52.0); Hemoglobin 12.4 g/dL (11.7-16.6); Lymphocytes # 2.8 10^3/uL (0.8-4.8); Lymphocytes % 27.2 %; Mean Corpuscular HGB Conc 31.4 g/dL (30.0-36.0); Mean Corpuscular Hemoglobin 26.4 pg (28.0-34.0); Mean Platelet Volume 11.6 fL (7.4-10.4); Monocytes # 1.4 10^3/uL (0.2-0.9); Monocytes % 13.9 %; Neutrophils # 5.5 10^3/uL (1.8-7.7); Neutrophils % 54.1 %; Nucleated Red Blood Cells % 0 %; Platelet Count 260 10^3/cmm (130-400); Red Cell Distribution Width 15.6 % (12.1-15.1); White Blood Count 10.2 10^3/uL (4.0-10.0)
[2019-12-01 23:56] VITALS: BP 135/80; PULSE 98; RESP 17; O2SAT 99
[2019-12-02] VITALS (54 sets, daily range): BP systolic 121–178; BP diastolic 67–111; PULSE 53–143; RESP 13–28; TEMP 36.3–36.9; O2SAT 94–100
[2019-12-02] LABS: INR 1.08 (0.8-1.2)
[2019-12-02 00:06] LABS: Troponin(5th) Baseline 16 ng/mL (0-15)
[2019-12-02 00:14] LABS: Alanine Aminotransferase 33 U/L (0-41); Albumin Level 3.8 g/dL (3.5-5.2); Alkaline Phosphatase 141 IU/L (40-130); Aspartate Amino Transferase 21 U/L (0-40); Blood Urea Nitrogen 21 mg/dL (8-23); Calcium 9.5 mg/dL (8.5-10.5); Carbon Dioxide 25 mmol/L (22-29); Chloride 100 mmol/L (98-107); Globulin 2.8 g/dL (1.3-4.6); Glucose 183 mg/dL (65-115); Magnesium 1.8 mg/dL (1.7-2.3); NT Pro B Type Natriuretic Pept 1630 pg/mL (0-125); Osmolality Calculated 289 mOsm/kg (285-295); Sodium 139 mmol/L (136-145); Total Bilirubin 0.2 mg/dL (0.15-1.2); Total Protein 6.6 g/dL (6.6-8.7)
[2019-12-02] MEDS: metoprolol tartrate 1 mg/1 mL SDV 5 mL 2.5 MG IV ×2 (00:52→01:51)
--- NOTE | 2019-12-02 01:20 | ECG_ITS ---
Measurements Intervals Diamond Rate: 112 P: CO: 0 QRS: 77 QRSD: 133 T: 105 QT: 351 QTc: 480 ATRIAL FIBRILLATION WITH RAPID VENTRICULAR RESPONSE WITH ABERRANT CONDUCTION OR VENTRICULAR PREMATURE COMPLEXES INTRAVENTRICULAR CONDUCTION DELAY [130+ ms QRS DURATION] POSSIBLE ANTERIOR MYOCARDIAL INFARCTION, OF INDETERMINATE AGE Compared to ECG 09/16/2019 21:31:53 Ventricular premature complex(es) now present Aberrant conduction of supraventricular beat(s) now present Intraventricular conduction delay now present Myocardial infarct finding now present Left bundle-branch block no longer present Electronically Signed On 12-04-2019 8:50:01 CDT by Lauren Spangler M.D. [id number]
--- NOTE | 2019-12-02 01:38 | PC.NURSE ---
PATIENT UP TO BATHROOM WITH NURSE
[2019-12-02 01:58] LABS: Troponin 5 2HR 20.03 ng/mL (0-15); Troponin 5 2HR Delta 4.03 ABS# (0-10)
--- NOTE | 2019-12-02 02:19 | PM.HP ---
Providers/Chief Complaint Primary Care Provider: Cr Connor Chief Complaint: high hr History of Present Illness Jonathan Sultana is a 74 year old male who has history of paroxysmal atrial fibrillation, chronic anticoagulation with Eliquis, preserved ejection fraction heart failure, carotid bilateral stent placement, coronary artery disease, type 2 diabetes, COPD came in today after experiencing palpitations. Patient is stating that around 6 PM after his dinner he was resting comfortably in his couch when he started experiencing palpitations, he tried to keep himself calm in the recliner but palpitations but not resolving, he checked his blood pressure which was high systolic blood pressure 170mmhg. he did not experience any chest pain, nausea, vomiting or diaphoresis but he is endorsing orthopnea and PND. He is compliant with his medications, does not drink caffeine, he is a non-smoker nonalcoholic. No recent sick contacts fever or viral prodromal symptoms. He has been attending physical rehab in the past for which he required increased oxygenation up to 6 to 8 L. Diagnostic in the ER revealed A. fib RVR heart rate 144, he has received labetalol 50 mg IV, blood work shows normal potassium slightly low magnesium 1.8, EKG showing A. fib, At the time of my interview his heart rate was fluctuating between 90-1 10, diastolic blood pressure 110, systolic blood pressure 160 mmHg He was asymptomatic at the time of my interview Review of Systems Const: Reports: fatigue; Denies: fever, chills or body aches Eyes: Denies: change in vision ENMT: Denies: throat pain Card: Reports: palpitations, irregular heart rhythm, shortness of breath on exertion and shortness of breath when lying down; Denies: chest pain, swelling of feet/ankles or syncope Resp: Denies: shortness of breath GI: Denies: abdominal pain, nausea or vomiting : Denies: flank pain Musc: Denies: neck pain Skin/Breast: Denies: rash Neuro: Denies: headache Psych: Denies: anxiety or depression Endo: Denies: excessive urination Frank/Lymph: Denies: easy bruising All/Imm: Denies: hives Medications/Allergies Home Medications Medication Instructions Recorded Confirmed Last Taken Type alendronate 70 mg tablet 70 mg PO .WEEKLY tab 08/23/19 12/01/19 12/01/19 History apixaban 5 mg tablet 5 mg PO BID 08/23/19 12/01/19 12/01/19 History atorvastatin 20 mg tablet 20 mg PO QDAY 08/23/19 12/01/19 12/01/19 History budesonide-formoterol HFA 160 2 puff INHALATION BID 08/23/19 12/01/19 12/01/19 History mcg-4.5 mcg/actuation aerosol inhaler lisinopril 40 mg tablet 40 mg PO QDAY 08/23/19 12/01/19 12/01/19 History metformin 500 mg tablet 500 mg PO BID 08/23/19 12/01/19 12/01/19 History omeprazole 20 mg capsule,delayed 20 mg PO QDAY 08/23/19 12/01/19 12/01/19 History release roflumilast 500 mcg tablet 500 mcg PO QDAY 08/23/19 12/01/19 12/01/19 History tiotropium bromide 18 mcg capsule 1 cap INHALATION QDAY 08/23/19 12/01/19 12/01/19 History with inhalation device amlodipine 10 mg tablet 10 mg PO QDAY tab 09/16/19 12/01/19 12/01/19 History furosemide 40 mg tablet 20 mg PO DAILY 09/16/19 12/01/19 12/01/19 History metoprolol tartrate 25 mg tablet 50 mg PO BID tab 09/16/19 12/01/19 12/01/19 History amoxicillin-pot clavulanate 1 tab PO DAILY 12/01/19 12/01/19 12/01/19 History [Augmentin] Allergies Allergy/AdvReac Type Severity Reaction Status Date / Time simvastatin AdvReac Intermediate ADR-Cramping Verified 10/18/19 14:07 of the Muscles PFSH Acute PFSH: Medical History Anticoagulation adequate Eliquis ASHD (arteriosclerotic heart disease) Atrial fibrillation Carotid stenosis, bilateral CHF (congestive heart failure) CKD (chronic kidney disease) COPD (chronic obstructive pulmonary disease) Diabetes 1.5, managed as type 2 Fracture of second metatarsal bone GERD (gastroesophageal reflux disease) HTN (hypertension) Hyperlipidemia LBBB (left bundle branch block) MOSHE (obstructive sleep apnea) RLS (restless legs syndrome) Surgical History S/P carotid endarterectomy S/P carpal tunnel release S/P sinus surgery Family History Mother , AGE 64 Diabetes Cancer Father , AGE 62 CAD (coronary artery disease) Social History Smoking and tobacco status: never smoked Alcohol intake: never Household members: spouse Marital status: service: Yes Vitals/I&O/Wt Last Vital Signs Temp 97.8 F 12/01/19 23:17 Pulse 135 H 12/02/19 01:40 Resp 24 H 12/02/19 01:40 BP 155/111 12/02/19 01:40 Pulse Ox 99 12/02/19 01:40 Weight last 48 hrs Weight 77.111 kg Physical Exam Narrative: EXAM NARRATIVE: Head to toe examination examination Sitting in his bed comfortably without any active discomfort, saturating well on 3 L nasal cannula EOMI, arcus analysis Variable S1-S2 no clinical signs of fluid overload Lungs are clear to auscultation without active wheezing or adventitious sounds however mild crackles at the bases Abdomen soft nontender nondistended Neurologically nonfocal exam Appropriate mood and affect Skin does not show any sign ischemia gangrene ulcer Pertinent negatives No active signs of CHF No respiratory distress No hemodynamic instability No neurological deficit Data : 12/01/19 23:35 12/01/19 23:35 A&P Assessment and plan (1) Atrial fibrillation with RVR: Status: Acute (2) Anticoagulation adequate: Status: Acute (3) LBBB (left bundle branch block): Status: Acute (4) COPD (chronic obstructive pulmonary disease): Status: Acute (5) ASHD (arteriosclerotic heart disease): Status: Acute (6) Acute exacerbation of CHF (congestive heart failure): Status: Acute (7) MOSHE (obstructive sleep apnea): Status: Acute Additional A&P Information Paroxysmal atrial fibrillation with RVR Magnesium slightly low, no inciting factor No active chest pain, no clinical signs of fluid overload however he has by high BNP Chest x-ray showing mild vascular congestion Currently saturating well on 3 L I would start Cardizem drip at a low rate, increase metoprolol dose and monitor his heart rate and blood pressure, he also has left bundle branch block on EKG He has tachyarrhythmia at rest, would not try digoxin at this point, optimize his AV hawk blocking agent such as beta-henrik, monitor response on Cardizem drip at this point Continue Eliquis Replete magnesium 400 mg p.o. Check TSH Preserved ejection fraction heart failure active exacerbation due to tachyarrhythmia Increase Lasix dose to 80 mg, monitor magnesium level, Will get echo in the morning Patient is chest pain-free, EKG is not suggestive ischemic or infarct changes, COPD without active exacerbation Continue 2 L, I would use Xopenex and ipratropium to avoid tachycardia DVT prophylaxis: Not indicated because of Eliquis use Cardiac diet Full code Attestations Medical Necessity Statement*: Anticipating stay in the hospital cross more than 2 midnights currently needs IV Cardizem because of A. fib RVR Time Spent in Patient Care: 50 Coding Level of Care Code Acute Ivory Polisher for Chg Fwd Diagnoses Atrial fibrillation with RVR I48.91 Anticoagulation adequate Z79.01 LBBB (left bundle branch block) I44.7 COPD (chronic obstructive pulmonary disease) J44.9 ASHD (arteriosclerotic heart disease) I25.10 Acute exacerbation of CHF (congestive heart failure) I50.9 MOSHE (obstructive sleep apnea) G47.33
[2019-12-02] MEDS: metoprolol tartrate 1 mg/1 mL SDV 5 mL 5 MG IV (02:29)
--- NOTE | 2019-12-02 02:52 | PC.NURSE ---
HOSPITALIST IN ROOM WITH PATIENT
[2019-12-02 03:05] LABS: Thyroid Stimulating Hormone 1.84 uIU/mL (0.27-4.20)
--- NOTE | 2019-12-02 03:09 | USCV_ITS ---
ClaireJonathan an Age: 74 Gender: M : 1945 Exam Date: 12/02/2019 08:32 Ordering Phys: Reji Gray MD Technologist: Jer Mcbride [place] [facility] [place]: AFIB WITH CHF BP: 130 / 73 HR: Rhythm: Sinus Technical Quality: Suboptimal MEASUREMENTS (Male / Female) Normal Values 2D ECHO LV Diastolic Diameter PLAX 4.2 cm 4.2 - 5.9 / 3.9 - 5.3 cm LV Systolic Diameter PLAX 3.0 cm IVS Diastolic Thickness 1.1 cm 0.6 - 1.0 / 0.6 - 0.9 cm IVS Systolic Thickness 1.6 cm LVPW Diastolic Thickness 0.9 cm 0.6 - 1.0 / 0.6 - 0.9 cm LVPW Systolic Thickness 1.6 cm LVOT Diameter 2.0 cm LV Ejection Fraction 2D Teich 54.6 % LV Ejection Fraction MOD 2C 58.9 % LV Ejection Fraction 2C AL 58.8 % LA Diameter 4.7 cm LA Width 3.5 cm LA Height 4.8 cm RA Width 3.6 cm RA Height 4.4 cm M-MODE LV Diastolic Diameter MM 5.2 cm 4.2 - 5.9 / 3.9 - 5.3 cm LV Systolic Diameter MM 4.3 cm LV Ejection Fraction MM Teich 37.1 % IVS Diastolic Thickness MM 1.1 cm 0.6 - 1.0 / 0.6 - 0.9 cm IVS Systolic Thickness MM 1.3 cm LVPW Diastolic Thickness MM 1.3 cm 0.6 - 1.0 / 0.6 - 0.9 cm LVPW Systolic Thickness MM 2.0 cm RV Diastolic Diameter MM 1.7 cm Aortic Annulus Diameter 3.4 cm LA Ao Ratio MM 1.4 MV E Point Septal Separation 1.1 cm DOPPLER AV Peak Velocity 119.0 cm/s LVOT Peak Velocity 80.0 cm/s AV Area Cont Eq vti 2.3 cm squared AV Area Cont Eq pk 2.1 cm squared MV Area PHT 5.0 cm squared Mitral E to A Ratio 0.8 MV E' Velocity 11.0 cm/s Mitral E to MV E' Ratio 10.0 Mitral E to LV E' Lateral Ratio 8.3 Mitral E to LV E' Septal Ratio 12.7 TR Peak Velocity 157.0 cm/s TR Peak Gradient 9.9 mmHg TV Peak E Velocity 100.0 cm/s Right Atrial Pressure 3.0 mmHg Pulmonary Artery Systolic Pressu 12.9 mmHg FINDINGS Left Ventricle Normal left ventricular cavity size. Normal left ventricular systolic function. Left ventricular ejection fraction is estimated at 50-55 %. No diagnostic regional wall motion abnormality. Abnormal septal motion consistent with conduction abnormality. Right Ventricle Normal right ventricular size and systolic function. Right ventricular systolic pressure 12.9 mmHg. Right Atrium Normal right atrial size. Right atrial pressure estimated at 3 mmHg. Left Atrium Normal left atrial size. Mitral Valve Mildly thickened mitral valve. Trace mitral valve regurgitation. Aortic Valve Aortic valve not well visualized. No aortic valve stenosis. No aortic valve regurgitation. Tricuspid Valve Structurally normal tricuspid valve. Trace tricuspid valve regurgitation. Pulmonic Valve Pulmonic valve not well visualized. No pulmonary valve stenosis. Pericardium Trivial pericardial effusion. No evidence of hemodynamic compromise. Aorta Aorta not well visualized. CONCLUSIONS 1. This is a technically difficult study. 2. Normal left ventricular cavity size and low normal systolic function. Left ventricular ejection fraction is estimated at 50- 55%. No diagnostic regional wall motion abnormality. 3. Normal pulmonary artery pressure. 4. No significant valvular abnormality. 5. When compared to previous echocardiogram dated 09/09/2017, there may not have been any significant change. Lauren Spangler MD (Electronically Signed) Final Date: 02 Dec 2019 13:52 S
--- NOTE | 2019-12-02 03:51 | PC.NURSE ---
Patient's states that he wears 4 L NC at home. Patient is currently on 2 NC with oxygen saturation of 99 percent. Patient also says he has a CPAP at home.
[2019-12-02] MEDS: magnesium oxide 400 mg tablet PO (04:00)
[2019-12-02] MEDS: ipratropium-albuterol 3 mL Neb INHALATION ×3 (04:16→20:49)
[2019-12-02] MEDS: levalbuterol 1.25 mg/3 mL Neb INHALATION ×2 (04:16→12:35)
--- NOTE | 2019-12-02 04:32 | PC.NURSE ---
Dr. Gray notified of patient's heart rate being 95 currently. Ordered not to start Cardizem drip unless heart rate maintains above 100.
--- NOTE | 2019-12-02 06:13 | PC.NURSE ---
Per report from ED, patient's heart rate goes up when the patient ambulates and goes down to normal when resting. Patient got up to bathroom one time since arriving on the floor and heart rate when up to 106. Current resting heart rate is maintaining 70s-80s. Will continue to monitor.
[2019-12-02 06:27] LABS: Glucose Point of Care 142 mg/dL (70-110)
[2019-12-02 06:30] LABS: Anion Gap 16.7 (5-19); Blood Urea Nitrogen 20 mg/dL (8-23); Calcium 9.5 mg/dL (8.5-10.5); Carbon Dioxide 28 mmol/L (22-29); Chloride 101 mmol/L (98-107); Creatinine Clr Calc Pharmacy 86.4875; Glucose 146 mg/dL (65-115); Magnesium 1.8 mg/dL (1.7-2.3); Osmolality Calculated 293 mOsm/kg (285-295); Potassium 3.7 mmol/L (3.5-5.1); Sodium 142 mmol/L (136-145)
--- NOTE | 2019-12-02 06:45 | PC.NURSE ---
Patient is currently in SR on the monitor at heart rate of 70. Patient had been in A-fib prior. Will continue to monitor.
[2019-12-02] MEDS: FUROsemide 40 mg Tablet PO (08:32)
[2019-12-02] MEDS: atorvastatin 40 mg Tablet 20 MG PO (08:32)
[2019-12-02] MEDS: metoprolol tartrate 50 mg Tablet 100 MG PO ×2 (08:32→17:42)
[2019-12-02] MEDS: pantoprazole DR 40 mg Tablet PO (08:32)
[2019-12-02] MEDS: lisinopril 20 mg Tablet 40 MG PO (08:32)
[2019-12-02] MEDS: apixaban 5 mg Tablet PO ×2 (08:33→17:42)
--- NOTE | 2019-12-02 11:00 | PC.CHAP ---
Pastoral Care Encounter/Spiritual Assessment Type of Contact [] Declined professional fighter visit [] Patient/Family/Request visit [] Outpatient visit [] Follow-up visit [] Physician referral [] Code/Alert [x] Routine visit [] Staff referral [] Actively dying [] Patient sleeping [] Family support [] [] Out of room [] Palliative care [] [] Receiving care in room [] Pre-surgical visit [] Trauma [] Long length of stay [] ICU visit [] Other: Relational/Emotional Strength [x] Patient feels connected with others/family/visitors/staff [] Distress [] Loneliness/isolation [] Abandonment Spirituality of Patient [x] Person of Shi [x] Attends Confucianism of their Shi [x] Believes in Prayer [x] Reads Bible or Tenriism materials [] There are Spiritual issues to be addressed Behavioral Interventionist Interventions [x] Prayer [x] Active listening [x] Non-anxious presence [x] Spiritual/emotional support [] Crisis/trauma care [] Spiritual counseling [] Bereavement support [] Provided bereavement packet [] Provided Bible/devotional materials [] Provided toy/stuffed animal, coloring book to patient or family member [] Provided Communion [] Anointing/[place] [] Salvation [x] Completed spiritual assessment [] Other: Impact on Illness or Injury [] Angry [] Fearful [] Anxious [] Often cries [] Exhaustion [] Unable to work [] Unable to attend yazdanism [] Unable to walk/stand [] Unable to read [] Unable to drive [] Unable to eat/drink [] Unable to sleep [] Unable to be with family [] Patient intubated [x] Other: Summary Patient is strong in his shi regarding to his submission to the [place] angela Dee. Time spent with patient 10 minutes
[2019-12-02 11:40] LABS: Glucose Point of Care 176 mg/dL (70-110)
--- NOTE | 2019-12-02 14:49 | PM.PN ---
Subjective Subjective: Interval history: currently rate contolled in sinus rhythm, feels well, no dyspnea, chest pain, SOB Medications: Reviewed: Yes Vitals/I&O/Wt Last Vital Signs Temp 98.5 F 12/02/19 10:48 Pulse 64 12/02/19 12:44 Resp 16 12/02/19 12:44 BP 163/71 12/02/19 10:48 Pulse Ox 95 12/02/19 12:44 12/01/19 12/02/19 12/02/19 22:59 06:59 14:59 Intake Total 100 / 100 360 / 360 Output Total 1075 / 1075 Balance 100 / 100 -715 / -715 Weight last 48 hrs Weight 75.75 kg Weight 77.111 kg Physical Exam Narrative: EXAM NARRATIVE: GEN: Awake, alert and oriented, no acute distress CVS: S1S2 N RS: CTA B/L Abd: Soft, nt/nd , bs+ OFFICE MACHINES WIRER: no focal neuro deficits EXT: no edema, clubbing or cyanosis Data : 12/01/19 23:35 12/02/19 05:04 A&P Assessment and plan (1) Atrial fibrillation with RVR: Status: Acute (2) Anticoagulation adequate: Status: Acute (3) LBBB (left bundle branch block): Status: Acute (4) COPD (chronic obstructive pulmonary disease): Status: Acute (5) ASHD (arteriosclerotic heart disease): Status: Acute (6) Acute exacerbation of CHF (congestive heart failure): Status: Acute (7) MOSHE (obstructive sleep apnea): Status: Acute Additional A&P Information Paroxysmal atrial fibrillation with RVR Patient has currently reverted back to rate controlled sinus rhythm Continue Eliquis Replete magnesium 400 mg p.o. echocardiogram pending Preserved ejection fraction heart failure active exacerbation due to tachyarrhythmia Currently euvolemic clinically COPD without active exacerbation Continue 2 L, I would use Xopenex and ipratropium to avoid tachycardia DVT prophylaxis: Not indicated because of Eliquis use Cardiac diet Full code Attestations Medical Necessity Statement*: awaiting echocardiogram, currently sinus rhythm, close I/O check for CHF Coding Level of Care Code Acute Brasswind Instrument Repairer for Chg Fwd Diagnoses Atrial fibrillation with RVR I48.91 Anticoagulation adequate Z79.01 LBBB (left bundle branch block) I44.7 COPD (chronic obstructive pulmonary disease) J44.9 ASHD (arteriosclerotic heart disease) I25.10 Acute exacerbation of CHF (congestive heart failure) I50.9 MOSHE (obstructive sleep apnea) G47.33
--- NOTE | 2019-12-02 16:42 | PC.RESP ---
Pulmonary Rehab discussed with patient and patient is currently enrolled and waiting to return post quarantine.
[2019-12-02 17:16] LABS: Glucose Point of Care 126 mg/dL (70-110)
[2019-12-02 21:16] LABS: Glucose Point of Care 154 mg/dL (70-110)
[2019-12-03] VITALS (8 sets, daily range): BP systolic 146–170; BP diastolic 68–83; PULSE 67–76; RESP 16–22; TEMP 36.3–36.8; O2SAT 90–98
[2019-12-03 06:52] LABS: Glucose Point of Care 109 mg/dL (70-110)
[2019-12-03] MEDS: levalbuterol 1.25 mg/3 mL Neb INHALATION (07:39)
[2019-12-03] MEDS: atorvastatin 40 mg Tablet 20 MG PO (08:55)
[2019-12-03] MEDS: lisinopril 20 mg Tablet 40 MG PO (08:55)
[2019-12-03] MEDS: apixaban 5 mg Tablet PO (08:56)
[2019-12-03] MEDS: metoprolol tartrate 50 mg Tablet 100 MG PO (08:56)
[2019-12-03] MEDS: pantoprazole DR 40 mg Tablet PO (08:58)
[2019-12-03] MEDS: FUROsemide 40 mg Tablet PO (08:58)
--- NOTE | 2019-12-03 09:59 | PC.CHAP ---
Pastoral Care Encounter/Spiritual Assessment Type of Contact [] Declined roller man visit [] Patient/Family/Request visit [] Outpatient visit [] Follow-up visit [] Physician referral [] Code/Alert [x] Routine visit [] Staff referral [] Actively dying [] Patient sleeping [] Family support [] [] Out of room [] Palliative care [] [] Receiving care in room [] Pre-surgical visit [] Trauma [] Long length of stay [] ICU visit [] Other: Relational/Emotional Strength [] Patient feels connected with others/family/visitors/staff [] Distress [] Loneliness/isolation [] Abandonment Spirituality of Patient [] Person of Shi [] Attends Catholic of their Shi [] Believes in Prayer [] Reads Bible or Restorationism materials [] There are Spiritual issues to be addressed Biological Photographer Interventions [x] Prayer [] Active listening [] Non-anxious presence [] Spiritual/emotional support [] Crisis/trauma care [] Spiritual counseling [] Bereavement support [] Provided bereavement packet [] Provided Bible/devotional materials [] Provided toy/stuffed animal, coloring book to patient or family member [] Provided Communion [] Anointing/[place] [] Salvation [x] Completed spiritual assessment [] Other: Impact on Illness or Injury [] Angry [] Fearful [] Anxious [] Often cries [] Exhaustion [] Unable to work [] Unable to attend gnosticism [] Unable to walk/stand [] Unable to read [] Unable to drive [] Unable to eat/drink [] Unable to sleep [] Unable to be with family [] Patient intubated [] Other: Summary patient resting well. Feeling much stronger. Time spent with patient 10min
[2019-12-03 10:41] LABS: Glucose Point of Care 142 mg/dL (70-110)
--- NOTE | 2019-12-03 13:05 | PM.DCS ---
Discharge Providers Date of Admission: 12/02/19 02:38 Date of Discharge: December 03, 2019 Attending Provider at Admission: Reji Gray MD Attending Provider at Discharge: Fadia Cowart MD Primary Care Provider: Cr Connor Diagnoses at Discharge Discharge Diagnosis (1) Atrial fibrillation with RVR: Status: Acute (2) Anticoagulation adequate: Status: Acute Problem details: Eliquis (3) LBBB (left bundle branch block): Status: Acute (4) COPD (chronic obstructive pulmonary disease): Status: Acute (5) ASHD (arteriosclerotic heart disease): Status: Acute (6) Acute exacerbation of CHF (congestive heart failure): Status: Acute (7) MOSHE (obstructive sleep apnea): Status: Acute Reason for Visit Reason for Visit: Reason For Visit: high hr Hospital Course Discharge Summary: Jonathan Sultana is a 74 year old male who has history of paroxysmal atrial fibrillation, chronic anticoagulation with Eliquis, preserved ejection fraction heart failure, carotid bilateral stent placement, coronary artery disease, type 2 diabetes, COPD came in today after experiencing palpitations. Diagnostic in the ER revealed A. fib RVR heart rate 144, he has received labetalol 50 mg IV, blood work shows normal potassium slightly low magnesium 1.8, EKG showing A. fib. He converted to sinus rhythm shortly after and thereafter has been intermittently between rate controlled a fib and trigeminy. He remains asymptomatic. Feels weel. He was clinically in CHF at time of arrival, however responded well to po lasix. He is being discharged today in stable condition, on 2lpm NC 02, which is his baseline requirement (2-4lpm at home). his metoprolol dose has been increased to 100mg po BID from 50mg BID. With increase in metoprolol, amlodipine has been reduced to 5mg per day. Lasix is increased to 40mg per day and lisniopril left unchanged. echo was done which showed Normal left ventricular cavity size and low normal systolic function. Left ventricular ejection fraction is estimated at 50-55%. No diagnostic regional wall motion abnormality. Physical Exam Narrative: EXAM NARRATIVE: GEN: Awake, alert and oriented, no acute distress CVS: S1S2 N RS: CTA B/L Abd: Soft, nt/nd , bs+ BOOM PUMP OPERATOR: no focal neuro deficits EXT: no LE edema, cyanosis or clubbing. Discharge Data Data Completed and Pending: Completed Studies During Hospitalization Category Date Time Status XR chest 1V daniel ble [id number] Stat Exams 12/01/19 23:19 Completed CV echo complete* [id number] Routine Ultrasound 12/02/19 03:09 Completed Pending at discharge Category Date Time Status Magnesium Routine Lab 12/03/19 13:04 Ordered Labs from last 24 hours 12/03/19 12/03/19 12/02/19 10:25 06:31 21:13 POC Glucose 142 109 154 12/02/19 16:54 POC Glucose 126 Vitals: Last Vital Signs Temp 97.3 F L 12/03/19 10:54 Pulse 76 12/03/19 10:54 Resp 18 12/03/19 10:54 BP 158/68 12/03/19 10:54 Pulse Ox 97 12/03/19 10:54 Discharge Plan Discharge Patient Disposition: Home, Self-Care Condition: Stable Prescriptions: New metoprolol tartrate 50 mg Tablet 100 mg PO BID 30 Days Qty: 120 RF: 0 potassium chloride 20 mEq packet 20 meq PO DAILY Qty: 14 RF: 0 Continued Eliquis 5 mg tablet 5 mg PO BID RF: 0 atorvastatin 20 mg tablet 20 mg PO QDAY RF: 0 Daliresp 500 mcg tablet 500 mcg PO QDAY RF: 0 Spiriva with HandiHaler 18 mcg capsule, w/inhalation device 1 cap INHALATION QDAY RF: 0 Symbicort 160-4.5 mcg/actuation HFA aerosol inhaler 2 puff INHALATION BID RF: 0 metformin 500 mg tablet 500 mg PO BID RF: 0 lisinopril 40 mg tablet 40 mg PO QDAY RF: 0 omeprazole 20 mg capsule,delayed release(DR/EC) 20 mg PO QDAY RF: 0 alendronate [Fosamax] 70 mg tablet 70 mg PO .WEEKLY RF: 0 Changed furosemide 40 mg tablet 40 mg PO DAILY Qty: 0 RF: 0 amlodipine 10 mg tablet 5 mg PO QDAY Qty: 0 RF: 0 metoprolol tartrate 25 mg tablet 100 mg PO BID Qty: 0 RF: 0 Discontinued Augmentin 875-125 mg tablet 1 tab PO DAILY RF: 0 Discharge Orders: Discharge Order (Routine); Ordered 12/03/19 Ordered By: Fadia Cowart Referrals: Julio Cesar Garcia MD [Physician] - 1 week Cr Connor [Primary Care Provider] - Discharge Diet: Cardiac and Diabetic Discharge Activity: Resume usual activity Discharge Attestations Time Spent in Discharge Care*: greater than 30 min Quality Metrics Clinical Quality Measures During this hospital stay, did patient experience: None Coding Level of Care Code Acute Housekeeping/Laundry Supervisor for Robert Fwd Diagnoses Atrial fibrillation with RVR I48.91 Anticoagulation adequate Z79.01 LBBB (left bundle branch block) I44.7 COPD (chronic obstructive pulmonary disease) J44.9 ASHD (arteriosclerotic heart disease) I25.10 Acute exacerbation of CHF (congestive heart failure) I50.9 MOSHE (obstructive sleep apnea) G47.33
[2019-12-03] MEDS: magnesium sulfate premix 2 GM/50 ML PIGGYBACK IV (13:23)
[2019-12-03] MEDS: ipratropium-albuterol 3 mL Neb INHALATION (13:57)
== END 2019-12-03 16:30 | disposition home or self-care (01) | DRG 309 ==
LOC: ER 12-02 02:32 → MEDSURG 12-02 07:17
PROVIDERS: Admitting Provider Internal Medicine; Emergency Provider Emergency Medicine; PCP Internal Medicine; Visit Provider Student in an Organized Health Care Education/Training Program
DX: I48.20 Chronic atrial fibrillation, unspecified (principal); I13.0 Hypertensive heart and chronic kidney disease with heart failure and stage 1 through stage 4 chronic kidney disease, or unspecified chronic kidney disease; Z79.01 Long term (current) use of anticoagulants; I25.10 Atherosclerotic heart disease of native coronary artery without angina pectoris; Z95.5 Presence of coronary angioplasty implant and graft; I50.9 Heart failure, unspecified; N18.9 Chronic kidney disease, unspecified; E13.22 Other specified diabetes mellitus with diabetic chronic kidney disease; J44.9 Chronic obstructive pulmonary disease, unspecified; K21.9 Gastro-esophageal reflux disease without esophagitis; E78.5 Hyperlipidemia, unspecified; G47.33 Obstructive sleep apnea (adult) (pediatric); G25.81 Restless legs syndrome; I44.7 Left bundle-branch block, unspecified; E83.42 Hypomagnesemia; Z79.84 Long term (current) use of oral hypoglycemic drugs
CPT/HCPCS: 12345; 36415; 36416; 71045; 80048; 80053; 81001; 82962; 83735; 83880; 84443; 84484; 85025; 85610; 93005; 93306; 94640; 94660; 96372; 99284; J1815; J3475; J3490; J7614

== ENCOUNTER 2019-12-09 12:02 | Outpatient (CLI) | payer OTHER, MEDICARE, SELFPAY ==
--- NOTE | 2019-12-09 12:08 | USCV_ITS ---
Jonathan Sultana Age: 74 Gender: M : 1945 Exam Date: 12/09/2019 12:52 Ordering Phys: Hill Wyman MD (Andy) [email or web address] [place] Technologist: Nae Chris Exam Location: [facility] [place] Indication: STENOSIS Risk Factors: Previous Vascular Surgery: Right Brachial BP: / Left Brachial BP: / Right Left Velocity (cm/s) Spectral Plaque Velocity (cm/s) Spectral Plaque Syst/Diast Broadening Syst/Diast Broadening 61.10/ 16.70 Prox CCA 44.30 / 11.30 58.70/ 15.10 Mid CCA 42.70 / 12.10 60.30/ 15.90 Distal CCA 52.40 / 14.50 94.50/ 19.40 Prox ICA 137.60/ 30.10 86.80/ 20.70 Mid ICA 139.70/ 32.20 75.10/ 24.60 Distal ICA 85.20 / 25.10 226.70 ECA 208.50 1.61 ICA/CCA 3.27 Antegrade Vertebral Antegrade 30.10/ 7.40 cm/s 54.90/ 11.60 cm/s Tri Subclavian Tri 52.90 101.2 0 FINDINGS Comparison:. 04/15/19. Mixture of calcified and noncalcified plaque in the bifurcations. Mild elevation of velocities. Mild progression of atherosclerosis on the left. CONCLUSIONS Left ICA stenosis 50-69%. Right ICA stenosis < 50%. Dr. Nidia Harper DO (Electronically Signed) Final Date: 09 Dec 2019 16:19 S
== END 2019-12-09 12:03 | disposition home or self-care (01) ==
LOC: RAD 12:05
PROVIDERS: PCP Nurse Practitioner Family; Visit Provider Thoracic Surgery (Cardiothoracic Vascular Surgery)
DX: I65.23 Occlusion and stenosis of bilateral carotid arteries (principal)
CPT/HCPCS: 93880

== ENCOUNTER 2020-08-02 13:28 | Inpatient (IN) | payer OTHER, MEDICARE, SELFPAY ==
[2020-08-02 13:29] VITALS: BP 163/81; PULSE 73; RESP 26; TEMP 36.6; O2SAT 99; BMI 21.7
--- NOTE | 2020-08-02 13:46 | XR_ITS ---
WS: [id number] Portable AP upright chest, 08/02/2020 Clinical Data: dyspnea/ covid sx Comparison: Portable chest, 12/01/2019. Findings: No nodules, masses or effusions are seen. The heart is normal. The pulmonary vascularity is not increased. No pneumonia or pneumothorax is seen. The diaphragms are flattened. There are atelect atic changes over both lung bases. Severe upper lobe emphysematous changes seen. XR/XR chest 1V portable [id number] Impression: COPD and hyperinflation.
--- NOTE | 2020-08-02 13:46 | ECG_ITS ---
[facility] Test Date: 2020-08-02 Pat Name: Jonathan Sultana Department: Room: Gender: Male Anesthesiology Resident: : 1945 Requested By: Abel Castillo Order Number: [id number] Alexey MD: Florian Bob M.D. Measurements Intervals Belt Rate: 71 P: 79 WA: 161 QRS: 79 QRSD: 138 T: 76 QT: 431 QTc: 469 Interpretive Statements SINUS RHYTHM WITH OCCASIONAL VENTRICULAR PREMATURE COMPLEXES LEFT BUNDLE BRANCH BLOCK [120+ ms QRS DURATION, 80+ ms Q/S IN V1/V2, 85+ ms R IN I/aVL/V5/V6] Compared to ECG 12/02/2019 04:28:22 Left bundle-branch block now present Atrial fibrillation no longer present Aberrant conduction of supraventricular beat(s) no longer present Intraventricular conduction delay no longer present Myocardial infarct finding no longer present Electronically Signed On 08-02-2020 20:13:31 INFECTION CONTROL PRACTITIONER by Florian Bob M.D. [id number]
--- NOTE | 2020-08-02 13:53 | W.ED.SOB ---
HPI - SOB/Dyspnea General: Chief Complaint: Shortness of Breath/Dyspnea Stated Complaint: SOB/ LOW O2/ COVID EXPOSURE Time Seen by Provider: 08/02/20 13:43 History of Present Illness: HPI Narrative: The patient is a 75-year-old male with past medical history COPD on 4 L oxygen chronically. He comes to the ER complaining of 6 days of increasing shortness of breath. He has been tested 2 different times for Covid which have both been negative however his has tested positive and he is having similar symptoms as her. He said he had a low-grade fever, fatigue, headache, increasing shortness of breath and cough. He says at home when he walks around he desats to 70%. When he is sitting there it is in the low 90s. He also says he gets pneumonia frequently. MD elicited complaint: shortness of breath Pertinent past history: COPD and pneumonia Associated symptoms: Reports cough, fever(s) and myalgias; Deny abdominal pain, chest pain, dizziness, extremity pain, nausea, polyuria or vomiting Treatment prior to arrival: oxygen and bronchodilator Review of Systems General: Reports: 10 or more systems reviewed and unremarkable except in HPI and below Const: Reports: fever(s) and fatigue Eyes: Denies: change in vision, blurry vision or eye redness ENMT: Denies: throat pain, swelling of lips/tongue, ear or mastoid pain or nasal congestion Card: Denies: chest pain Resp: Reports: dyspnea and non-productive cough GI: Denies: abdominal pain, nausea or vomiting : Denies: flank pain, urinary frequency or urinary urgency Musc: Denies: neck pain, back pain, extremity pain, joint pain, joint redness, limited range of motion or muscle weakness Skin/Breast: Denies: rash, pruritus, erythema, skin pain or skin tenderness Neuro: Denies: headache(s), numbness in extremities, weakness in extremities, sensory changes, difficulty walking, dizziness, confusion or Slurred speech present Psych: Denies: anxiety or depression Endo: Denies: polyuria All/Imm: Denies: urticaria, throat swelling or tongue swelling PFSH ED PFSH: Medical History Anticoagulation adequate Eliquis ASHD (arteriosclerotic heart disease) Atrial fibrillation Carotid stenosis, bilateral CHF (congestive heart failure) CKD (chronic kidney disease) COPD (chronic obstructive pulmonary disease) Diabetes 1.5, managed as type 2 Fracture of second metatarsal bone GERD (gastroesophageal reflux disease) History of nonmelanoma skin cancer HTN (hypertension) Hyperlipidemia LBBB (left bundle branch block) MOSHE (obstructive sleep apnea) RLS (restless legs syndrome) Surgical History S/P carotid endarterectomy S/P carpal tunnel release S/P sinus surgery Family History Mother , AGE 64 Diabetes Cancer Father , AGE 62 CAD (coronary artery disease) Social History Smoking and tobacco status: former smoker Alcohol intake: never Household members: spouse Marital status: service: Yes branch: [employer] Physical Exam Const: COMMON NORMALS: no acute distress, average body habitus, patient oriented x3, no limitations, healthy appearing, alert and well nourished GENERAL APPEARANCE: cooperative, comfortable, well kempt and well developed ORIENTATION/CONSCIOUSNESS: Yes awake, Yes oriented to person, Yes oriented to place and Yes oriented to time HENMT: COMMON NORMALS: normocephalic, external ears normal and Normal external nose present HEAD & SCALP: normal to inspection and normocephalic NOSE: Normal external nose present EXTERNAL EAR: Yes external ears normal MOUTH: Normal oral and palatal mucosa present THROAT: posterior oropharynx normal Eye: COMMON NORMALS: Equal, round and reactive pupils present and EOMs intact bilaterally GENERAL EYE: appearance normal, both eyes and all related structures PUPIL: Yes Equal, round and reactive pupils present Neck/C-Spine: COMMON NORMALS: full ROM, no lymphadenopathy, no meningeal signs and no JVD GENERAL: Yes normal visual inspection Lymph: LYMPHATIC: no lymphadenopathy noted Chest: COMMONS NORMALS: normal inspection of the chest and normal palpation of entire chest wall Resp: EFFORT & INSPECTION: Yes able to speak in complete sentences, Yes tachypneic, Yes respiratory distress (mild), Yes labored, Yes Actively coughing and Yes uses accessory muscles AUSCULTATION: wheezes (RLL) and diminished lung sounds Cardio: COMMON NORMALS: no JVD, regular rate, regular rhythm, S1 normal heart sound present, S2 normal heart sound present and Peripheral pulses 2+ throughout RATE: regular rate RHYTHM: regular rhythm HEART SOUNDS: S1 normal heart sound present and S2 normal heart sound present PERIPHERAL PULSES: Peripheral pulses 2+ throughout GI: COMMON NORMALS: Normal to inspection, nondistended, normoactive bowel sounds present, Soft to palpation, non-tender and no masses INSPECTION: Yes normal to inspection PALPATION: Yes Soft to palpation : COMMON NORMALS: Yes no CVA tenderness BLADDER/KIDNEY EXAM: Yes no CVA tenderness Back/Pelvis: COMMON NORMALS: no CVA tenderness, thoracic and lumbar spine normal to inspection, no thoracic nor lumbar tenderness and thoraco-lumbar ROM normal Extremity: COMMON NORMALS: normal to inspection, full ROM, capillary refill normal, no joint enlargement and no pedal edema GENERAL: Yes normal exam except as noted Neuro: COMMON NORMALS: patient oriented x3, CN's II-XII intact bilaterally, moves all extremities, no focal motor deficits, no sensory deficits noted and gait normal SENSORIUM/ORIENTATION: Yes alert, Yes oriented to person, Yes oriented to place and Yes oriented to time MENINGEAL SIGNS: Yes no meningeal signs Psych: COMMON NORMALS: mental status grossly normal, Normal thought process present, cooperative, normal affect and speech normal APPEARANCE: Yes well kempt ATTITUDE: Yes calm SPEECH: Yes normal speech THOUGHT PROCESS: Normal thought process present Skin: COMMON NORMALS: no rashes or lesions noted GENERAL SKIN EXAM: no rashes or lesions noted Course Vital Signs: Vital signs: Vital Signs Temperature 98.4 F 08/02/20 21:06 Pulse Rate 84 08/02/20 21:24 Respiratory Rate 20 H 08/02/20 21:24 Blood Pressure 153/78 08/02/20 21:06 Pulse Oximetry 95 08/02/20 21:24 MDM - SOB/Dyspnea MDM Narrative: Medical decision making narrative: Patient came to the ER complaining of exertional hypoxia to 70% and shortness of breath. His Covid test came back positive today after coming back negative twice in the past week. He has severe COPD and was placed on oxygen, given nebulizations and he was comfortable. He was admitted to the hospitalist Lab Data: Labs: Lab Results 08/02/20 08/02/20 08/02/20 Range/Units 13:53 13:53 13:53 WBC 12.6 H (4.0-10.0) 10^3/ uL RBC 4.80 (4.1-5.3) 10^6/u L Hgb 13.2 (11.7-16.6) g/dL Hct 41.6 L (42.0-52.0) % MCV 86.7 (80-94) fL MCH 27.5 L (28.0-34.0) pg MCHC 31.7 (30.0-36.0) g/dL RDW 15.4 H (12.1-15.1) % Plt Count 220 (130-400) 10^3/c mm MPV 11.6 H (7.4-10.4) fL Neut % (Auto) 81.1 % Lymph % (Auto) 6.5 % [place] % (Auto) 11.2 % Eos % (Auto) 0.0 % Baso % (Auto) 0.2 % Neut # (Auto) 10.22 H (1.8-7.7) 10^3/u L Lymph # (Auto) 0.8 (0.8-4.8) 10^3/u L [place] # (Auto) 1.4 H (0.2-0.9) 10^3/u L Eos # (Auto) 0.0 (0.0-0.8) 10^3/u L Baso # (Auto) 0.0 (0.0-0.1) 10^3/u L Nucleated RBC % (a uto) 0 % Nucleated RBCs # 0.0 /100WBC D-Dimer 0.41 (0-0.59) ug/mIFE U Specimen Type Sample Site ABG pH (7.35-7.45) ABG pCO2 (35-45) mmHg ABG pO2 (80.0-100.0) mmH g ABG HCO3 (22-26) mmol/L ABG O2 Saturation ABG Base Excess (-2.0-2.0) mmol/ L Mariano Test A-a O2 Gradient (5-10) mmHg Hematocrit (42-52) % Hgb O2 Saturation (95-100) % Carboxyhemoglobin (0.4-20.1) %THgb Methemoglobin (0.4-1.5) % Total Hemoglobin (14-18) g/dL Ionized Calcium (1.1-1.4) mmol/L O2 Delivery Device O2 Liters/Min % FiO2 % International Manager ID Sodium 139 (136-145) mmol/L Potassium 4.1 (3.5-5.1) mmol/L Chloride 101 (98-107) mmol/L Carbon Dioxide 28 (22-29) mmol/L Anion Gap 14.1 (5-19) BUN 22 (8-23) mg/dL Creatinine 0.9 (0.7-1.2) mg/dL GFR Calculation Not Reportable Glucose 156 H (65-115) mg/dL Calculated Osmolal ity 295 (285-295) mOsm/k g Lactic Acid (0.5-2.2) mmol/L Calcium 8.8 (8.5-10.5) mg/dL Total Bilirubin 0.3 (0.15-1.2) mg/dL AST 32 (0-40) U/L ALT 34 (0-41) U/L Alkaline Phosphata se 140 H (40-130) IU/L Troponin T Gen 5 n g/L (0-15) ng/L C-Reactive Protein 19.1 H (0.0-4.9) mg/L NT-Pro-B Natriuret Pep 1419 H (0-450) pg/mL Total Protein 6.2 L (6.6-8.7) g/dL Albumin 3.5 (3.5-5.2) g/dL Globulin 2.7 (1.3-4.6) g/dL SARS-CoV-2 Ag (Rap id) (Negative) 08/02/20 08/02/20 08/02/20 Range/Units 13:53 14:18 14:46 WBC (4.0-10.0) 10^3/ uL RBC (4.1-5.3) 10^6/u L Hgb (11.7-16.6) g/dL Hct (42.0-52.0) % MCV (80-94) fL MCH (28.0-34.0) pg MCHC (30.0-36.0) g/dL RDW (12.1-15.1) % Plt Count (130-400) 10^3/c mm MPV (7.4-10.4) fL Neut % (Auto) % Lymph % (Auto) % [place] % (Auto) % Eos % (Auto) % Baso % (Auto) % Neut # (Auto) (1.8-7.7) 10^3/u L Lymph # (Auto) (0.8-4.8) 10^3/u L [place] # (Auto) (0.2-0.9) 10^3/u L Eos # (Auto) (0.0-0.8) 10^3/u L Baso # (Auto) (0.0-0.1) 10^3/u L Nucleated RBC % (a uto) % Nucleated RBCs # /100WBC D-Dimer (0-0.59) ug/mIFE U Specimen Type Arterial Sample Site Radial, right ABG pH 7.49 H (7.35-7.45) ABG pCO2 38.0 (35-45) mmHg ABG pO2 88.9 (80.0-100.0) mmH g ABG HCO3 28.7 H (22-26) mmol/L ABG O2 Saturation 97.8 ABG Base Excess 5.1 H (-2.0-2.0) mmol/ L Mariano Test Pos A-a O2 Gradient 12.0 H (5-10) mmHg Hematocrit 40.4 L (42-52) % Hgb O2 Saturation 96.4 (95-100) % Carboxyhemoglobin 0.6 (0.4-20.1) %THgb Methemoglobin 0.9 (0.4-1.5) % Total Hemoglobin 13.2 L (14-18) g/dL Ionized Calcium 1.2 (1.1-1.4) mmol/L O2 Delivery Device Nc O2 Liters/Min 3.0 % FiO2 32.0 % International Manager ID Ed Sodium 139.0 (136-145) mmol/L Potassium 3.9 (3.5-5.1) mmol/L Chloride (98-107) mmol/L Carbon Dioxide (22-29) mmol/L Anion Gap (5-19) BUN (8-23) mg/dL Creatinine (0.7-1.2) mg/dL GFR Calculation Glucose 88.0 (65-115) mg/dL Calculated Osmolal ity (285-295) mOsm/k g Lactic Acid (0.5-2.2) mmol/L Calcium (8.5-10.5) mg/dL Total Bilirubin (0.15-1.2) mg/dL AST (0-40) U/L ALT (0-41) U/L Alkaline Phosphata se (40-130) IU/L Troponin T Gen 5 n g/L 12 (0-15) ng/L C-Reactive Protein (0.0-4.9) mg/L NT-Pro-B Natriuret Pep (0-450) pg/mL Total Protein (6.6-8.7) g/dL Albumin (3.5-5.2) g/dL Globulin (1.3-4.6) g/dL SARS-CoV-2 Ag (Rap id) Positive H (Negative) 08/02/20 Range/Units 18:28 WBC (4.0-10.0) 10^3/ uL RBC (4.1-5.3) 10^6/u L Hgb (11.7-16.6) g/dL Hct (42.0-52.0) % MCV (80-94) fL MCH (28.0-34.0) pg MCHC (30.0-36.0) g/dL RDW (12.1-15.1) % Plt Count (130-400) 10^3/c mm MPV (7.4-10.4) fL Neut % (Auto) % Lymph % (Auto) % [place] % (Auto) % Eos % (Auto) % Baso % (Auto) % Neut # (Auto) (1.8-7.7) 10^3/u L Lymph # (Auto) (0.8-4.8) 10^3/u L [place] # (Auto) (0.2-0.9) 10^3/u L Eos # (Auto) (0.0-0.8) 10^3/u L Baso # (Auto) (0.0-0.1) 10^3/u L Nucleated RBC % (a uto) % Nucleated RBCs # /100WBC D-Dimer (0-0.59) ug/mIFE U Specimen Type Sample Site ABG pH (7.35-7.45) ABG pCO2 (35-45) mmHg ABG pO2 (80.0-100.0) mmH g ABG HCO3 (22-26) mmol/L ABG O2 Saturation ABG Base Excess (-2.0-2.0) mmol/ L Mariano Test A-a O2 Gradient (5-10) mmHg Hematocrit (42-52) % Hgb O2 Saturation (95-100) % Carboxyhemoglobin (0.4-20.1) %THgb Methemoglobin (0.4-1.5) % Total Hemoglobin (14-18) g/dL Ionized Calcium (1.1-1.4) mmol/L O2 Delivery Device O2 Liters/Min % FiO2 % International Manager ID Sodium (136-145) mmol/L Potassium (3.5-5.1) mmol/L Chloride (98-107) mmol/L Carbon Dioxide (22-29) mmol/L Anion Gap (5-19) BUN (8-23) mg/dL Creatinine (0.7-1.2) mg/dL GFR Calculation Glucose (65-115) mg/dL Calculated Osmolal ity (285-295) mOsm/k g Lactic Acid 1.5 (0.5-2.2) mmol/L Calcium (8.5-10.5) mg/dL Total Bilirubin (0.15-1.2) mg/dL AST (0-40) U/L ALT (0-41) U/L Alkaline Phosphata se (40-130) IU/L Troponin T Gen 5 n g/L (0-15) ng/L C-Reactive Protein (0.0-4.9) mg/L NT-Pro-B Natriuret Pep (0-450) pg/mL Total Protein (6.6-8.7) g/dL Albumin (3.5-5.2) g/dL Globulin (1.3-4.6) g/dL SARS-CoV-2 Ag (Rap id) (Negative) Discharge Plan Discharge Patient Disposition: Admitted As Inpatient Admit Provider: Alesia Plasencia Coding Level of Care Code ED Auto Brake Mechanic for g Fwd Exam Comprehensive
[2020-08-02 14:08] LABS: Basophils % 0.2 %; Hematocrit 41.6 % (42.0-52.0); Hemoglobin 13.2 g/dL (11.7-16.6); Lymphocytes # 0.8 10^3/uL (0.8-4.8); Lymphocytes % 6.5 %; Mean Corpuscular HGB Conc 31.7 g/dL (30.0-36.0); Mean Corpuscular Hemoglobin 27.5 pg (28.0-34.0); Mean Corpuscular Volume 86.7 fL (80-94); Mean Platelet Volume 11.6 fL (7.4-10.4); Monocytes # 1.4 10^3/uL (0.2-0.9); Monocytes % 11.2 %; Neutrophils # 10.22 10^3/uL (1.8-7.7); Neutrophils % 81.1 %; Nucleated Red Blood Cells % 0 %; Platelet Count 220 10^3/cmm (130-400); Red Cell Distribution Width 15.4 % (12.1-15.1); White Blood Count 12.6 10^3/uL (4.0-10.0)
[2020-08-02 14:15] VITALS: PULSE 68; RESP 17; O2SAT 95
[2020-08-02] MEDS: albuterol 8 gm MDI 2 PUFF INHALATION (14:19)
[2020-08-02 14:23] LABS: D Dimer 0.41 ug/mIFEU (0-0.59)
[2020-08-02 14:28] LABS: ABG PH Result 7.49 (7.35-7.45); Arterial Blood Gas Hematocrit 40.4 % (42-52); Base Excess ABG 5.1 mmol/L (-2.0-2.0); Blood Gas Allen Test Pos; Blood Gas Sample Type Arterial; Carboxyhemoglobin 0.6 %THgb (0.4-20.1); HCO3 ABG 28.7 mmol/L (22-26); HGB O2 Sat 96.4 % (95-100); Ionized Calcium Level - ABG 1.2 mmol/L (1.1-1.4); Methemoglobin 0.9 % (0.4-1.5); Oxygen Saturation ABG 97.8; PO2 ABG 88.9 mmHg (80.0-100.0); Potassium Level - ABG 3.9 mmol/L (3.5-5.0); Total Hemoglobin 13.2 g/dL (14-18)
[2020-08-02 14:29] LABS: Blood Gas Operator Identificat ED; Blood Gas Sample Site Radial, right; Oxygen Device NC
[2020-08-02] MEDS: sodium chloride 0.9% 1,000 ML 75 ML IV (14:30)
[2020-08-02 14:46] LABS: Troponin T (5th) Once 12 ng/L (0-15)
[2020-08-02 14:52] LABS: Alanine Aminotransferase 34 U/L (0-41); Albumin Level 3.5 g/dL (3.5-5.2); Alkaline Phosphatase 140 IU/L (40-130); Anion Gap 14.1 (5-19); Aspartate Amino Transferase 32 U/L (0-40); Blood Urea Nitrogen 22 mg/dL (8-23); C Reactive Protein 19.1 mg/L (0.0-4.9); Calcium 8.8 mg/dL (8.5-10.5); Carbon Dioxide 28 mmol/L (22-29); Chloride 101 mmol/L (98-107); Globulin 2.7 g/dL (1.3-4.6); Glucose 156 mg/dL (65-115); NT Pro B Type Natriuretic Pept 1419 pg/mL (0-450); Osmolality Calculated 295 mOsm/kg (285-295); Potassium 4.1 mmol/L (3.5-5.1); Sodium 139 mmol/L (136-145); Total Bilirubin 0.3 mg/dL (0.15-1.2); Total Protein 6.2 g/dL (6.6-8.7)
[2020-08-02 15:25] LABS: SARS Covid-2 Antigen Positive (Negative)
[2020-08-02] MEDS: dexamethasone 4 mg/mL INJ 10 MG IVP (16:05)
[2020-08-02] MEDS: levofloxacin-dextrose 5 % 750 MG/150 ML PREMIX 100 MG IV (16:05)
--- NOTE | 2020-08-02 16:25 | PM.HP ---
Providers/Chief Complaint Primary Care Provider: Jina Hooper-C Chief Complaint: LOW O2 SAT COVID EXPOSURE History of Present Illness Jonathan Sultana is a 75 year old male with COPD 4 L oxygen dependent, paroxysmal atrial fibrillation, chronic anticoagulation with Eliquis, heart failure with preserved ejection fraction, carotid bilateral stent placement, CAD, noninsulin-dependent type 2 diabetes mellitus, CKD, GERD, hypertension, hyperlipidemia, MOSHE, who presents to [facility] due to complaints of weakness, low-grade fevers, shortness of breath at rest and exertion. Patient tells me he uses 4 L at home, recently his was diagnosed with Covid, he was also tested multiple times as he was having some complaints of fatigue, malaise low-grade fevers and he tested negative 3 times, he was also treated for a pneumonia. Patient continues to have shortness of breath at rest with exertion, no chest pain, no lightheadedness, no dizziness, no loss of taste, no loss of smell, no sinus symptoms Review of Systems Const: Reports: fever(s), fatigue and malaise; Denies: chills Eyes: Denies: change in vision or blurry vision ENMT: Denies: nasal congestion Card: Denies: chest pain Resp: Reports: dyspnea and productive cough; Denies: non-productive cough or wheezing GI: Denies: abdominal pain, nausea, vomiting, hematemesis, diarrhea, constipation, hematochezia or melena : Denies: flank pain, difficulty urinating, dysuria or urinary frequency Musc: Denies: neck pain or back pain Skin/Breast: Denies: rash Neuro: Denies: headache(s), dizziness or vertigo Psych: Denies: anxiety or depression Endo: Denies: polyuria or polydipsia Medications/Allergies Home Medications Medication Instructions Recorded Confirmed Last Taken Type alendronate 70 mg tablet 70 mg PO Q7D tab 08/23/19 08/02/20 07/30/20 History apixaban 5 mg tablet 5 mg PO BID@08/23/19 08/02/20 08/02/20 History atorvastatin 20 mg tablet 20 mg PO DAILY@08/23/19 08/02/20 08/01/20 History budesonide-formoterol HFA 160 2 puff INHALATION BID@08/23/19 08/02/20/06/21 History mcg-4.5 mcg/actuation aerosol inhaler lisinopril 40 mg tablet 40 mg PO QDAY 08/23/19 05/31/20 12/01/19 History roflumilast 500 mcg tablet 500 mcg PO QDAY 08/23/19 05/31/20 12/01/19 History tiotropium bromide 18 mcg capsule 1 cap INHALATION QDAY 08/23/19 02/22/20 12/01/19 History with inhalation device famotidine 20 mg tablet 20 mg PO DAILY 12/09/19 05/31/20 Unknown History calcium carbonate 500 mg (1,250 1 tab PO DAILY 05/31/20 05/31/20 Unknown History mg)-vitamin D3 200 unit tablet metoprolol tartrate 100 mg tablet 100 mg PO BID 05/31/20 05/31/20 Unknown History amlodipine 5 mg PO DAILY@08/02/20 08/02/20 08/02/20 History budesonide 0.5 mg INHALATION Q6H PRN 08/02/20 08/02/20 08/02/20 History furosemide 40 mg PO DAILY@08/02/20 08/02/20 08/02/20 History glimepiride 2 mg PO DAILY@08/02/20 08/02/20 08/02/20 History levalbuterol HCl 2.5 mg INHALATION Q4H PRN 08/02/20 08/02/20 08/02/20 History potassium chloride 20 meq PO DAILY@08/02/20 08/02/20 08/02/20 History Allergies Allergy/AdvReac Type Severity Reaction Status Date / Time simvastatin AdvReac Intermediate ADR-Cramping Verified 08/02/20 13:37 of the Muscles PFSH Acute PFSH: Medical History Anticoagulation adequate Eliquis ASHD (arteriosclerotic heart disease) Atrial fibrillation Carotid stenosis, bilateral CHF (congestive heart failure) CKD (chronic kidney disease) COPD (chronic obstructive pulmonary disease) Diabetes 1.5, managed as type 2 Fracture of second metatarsal bone GERD (gastroesophageal reflux disease) History of nonmelanoma skin cancer HTN (hypertension) Hyperlipidemia LBBB (left bundle branch block) MOSHE (obstructive sleep apnea) RLS (restless legs syndrome) Surgical History S/P carotid endarterectomy S/P carpal tunnel release S/P sinus surgery Family History Mother , AGE 64 Diabetes Cancer Father , AGE 62 CAD (coronary artery disease) Social History Smoking and tobacco status: former smoker Alcohol intake: never Household members: spouse Marital status: service: Yes branch: [employer] Vitals/I&O/Wt Last Vital Signs Temp 97.9 F 08/02/20 13:29 Pulse 68 08/02/20 14:15 Resp 17 08/02/20 14:15 BP 163/81 08/02/20 13:29 Pulse Ox 95 08/02/20 14:15 Weight last 48 hrs Weight 70.67 kg Physical Exam Const: COMMON NORMALS: no acute distress and patient oriented x3 GENERAL APPEARANCE: cooperative and comfortable HENMT: COMMON NORMALS: normocephalic HEAD & SCALP: normocephalic Eye: COMMON NORMALS: Equal, round and reactive pupils present and EOMs intact bilaterally GENERAL EYE: appearance normal, both eyes and all related structures PUPIL: Yes Equal, round and reactive pupils present Neck/C-Spine: COMMON NORMALS: full ROM, no lymphadenopathy, no JVD and Thyroid normal THYROID: Thyroid normal Lymph: LYMPHATIC: no lymphadenopathy noted Resp: COMMON NORMALS: normal respiratory effort, No retractions, No use of accessory muscles and clear to auscultation bilaterally AUSCULTATION: diminished lung sounds diffuse Cardio: COMMON NORMALS: no JVD, regular rate, regular rhythm, S1 normal heart sound present, S2 normal heart sound present, No gallops present (Cardio), No clicks present (Cardio) and No murmurs present (Cardio) RATE: regular rate RHYTHM: regular rhythm HEART SOUNDS: S1 normal heart sound present and S2 normal heart sound present GI: COMMON NORMALS: Normal to inspection, nondistended, normoactive bowel sounds present, Soft to palpation, non-tender and No hepatosplenomegaly present PALPATION: Yes Soft to palpation and Yes No hepatosplenomegaly present Extremity: COMMON NORMALS: normal to inspection, full ROM and no pedal edema Neuro: COMMON NORMALS: patient oriented x3, CN's II-XII intact bilaterally, moves all extremities and no focal motor deficits Psych: COMMON NORMALS: mental status grossly normal, Normal thought process present and cooperative THOUGHT PROCESS: Normal thought process present Data : 08/02/20 13:53 08/02/20 13:53 A&P Assessment and plan (1) Acute respiratory failure with hypoxia: -Secondary to COVID-19 pneumonia, possible secondary bacterial pneumonia, COPD Plan: -Admit to general medical floors -Rocephin and azithromycin -Continue Decadron -Remdesivir -Symbicort and Advair and Daliresp -As needed albuterol -Vitamin C, zinc -Monitor respiratory status closely as he has severe COPD, high risk of intubation -Patient is a full code -Eliquis for DVT prophylaxis -Sputum cultures, blood cultures, urine bacterial antigens Status: Acute (2) Pneumonia due to COVID-19 virus: Status: Acute (3) Secondary bacterial pneumonia: Status: Acute (4) Heart failure with preserved ejection fraction: -BNP is a bit elevated at 1419, has no complaints of orthopnea, paroxysmal nocturnal dyspnea, no bilateral extremity edema, chest x-ray does not show fluid overload, echocardiogram in November showed an EF of 50 to 55%, no diagnostic regional wall motion abnormality, Status: Acute (5) Atrial fibrillation: Continue Eliquis, metoprolol Status: Acute Qualifiers: Atrial fibrillation type: unspecified chronic Qualified Code(s): I48.20 - Chronic atrial fibrillation, unspecified (6) LBBB (left bundle branch block): Status: Acute (7) COPD (chronic obstructive pulmonary disease): Status: Acute (8) ASHD (arteriosclerotic heart disease): Status: Acute (9) HTN (hypertension): Status: Acute Qualifiers: Hypertension type: essential hypertension Qualified Code(s): I10 - Essential (primary) hypertension (10) MOSHE (obstructive sleep apnea): Status: Acute (11) Hyperlipidemia: Status: Acute (12) Diabetes 1.5, managed as type 2: Status: Acute Attestations Medical Necessity Statement*: Patient requires hospitalization, inpatient, greater than 2 midnights, for acute respiratory failure with hypoxia secondary COVID-19, possible secondary bacterial infection, COPD Coding Level of Care Code Acute Human Resources Talent Manager for Chg Fwd Diagnoses Acute respiratory failure with hypoxia J96.01 Pneumonia due to COVID-19 virus U07.1; J12.89 Secondary bacterial pneumonia J15.9 Heart failure with preserved ejection fraction I50.30 Atrial fibrillation I48.20 Atrial fibrillation type: unspecified chronic LBBB (left bundle branch block) I44.7 COPD (chronic obstructive pulmonary disease) J44.9 ASHD (arteriosclerotic heart disease) I25.10 HTN (hypertension) I10 Hypertension type: essential hypertension MOSHE (obstructive sleep apnea) G47.33 Hyperlipidemia E78.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
[2020-08-02] MEDS: remdesivir 200 MG in sodium chloride 0.9% (100 ml) 100 ML 100 MG IV (17:00)
[2020-08-02 17:24] VITALS: BP 190/96; PULSE 64; RESP 18; O2SAT 97
[2020-08-02 19:06] LABS: Lactic Sepsis W/Reflex 1.5 mmol/L (0.5-2.2)
[2020-08-02 19:53] VITALS: BP 180/84; PULSE 61; RESP 17; O2SAT 98
[2020-08-02 21:06] VITALS: BP 153/78; PULSE 84; RESP 24; TEMP 36.9; O2SAT 95
[2020-08-02] MEDS: albuterol 8 gm MDI 1 PUFF INHALATION (21:21)
[2020-08-02 21:24] VITALS: PULSE 84; RESP 20; O2SAT 95
[2020-08-02] MEDS: metoprolol tartrate 50 mg Tablet 100 MG PO (21:35)
[2020-08-02] MEDS: ascorbic acid 500 mg Tablet 1000 MG PO (21:36)
[2020-08-02] MEDS: lisinopril 20 mg Tablet 40 MG PO (21:36)
[2020-08-02] MEDS: amlodipine 10 mg Tablet 5 MG PO (21:36)
[2020-08-02] MEDS: pantoprazole DR 40 mg Tablet PO (21:36)
[2020-08-02] MEDS: atorvastatin 40 mg Tablet 20 MG PO (21:36)
[2020-08-03] VITALS (18 sets, daily range): BP systolic 112–162; BP diastolic 60–80; PULSE 58–92; RESP 16–22; TEMP 36.6–36.9; O2SAT 93–98
[2020-08-03] MEDS: albuterol 8 gm MDI 1 PUFF INHALATION ×7 (00:40→23:12)
[2020-08-03] MEDS: sodium chloride 0.9% 1,000 ML 75 ML IV ×2 (02:56→17:05)
[2020-08-03 05:14] LABS: ABG PCO2 40.1 mmHg (35-45); ABG PH Result 7.45 (7.35-7.45); Arterial Blood Gas Hematocrit 37.8 % (42-52); Base Excess ABG 3.7 mmol/L (-2.0-2.0); Blood Gas Operator Identificat HARKR; Blood Gas Sample Site Brachial, right; Blood Gas Sample Type Arterial; HCO3 ABG 27.9 mmol/L (22-26); Oxygen Device NC; PO2 ABG 90.4 mmHg (80.0-100.0)
--- NOTE | 2020-08-03 05:30 | ECG_ITS ---
[facility] Test Date: 2020-08-03 Pat Name: Jonathan Sultana Department: Room: 268 Gender: Male Core Stacker: : 1945 Requested By: El Reeves Order Number: [id number] Alexey MD: Lauren Spangler M.D. Measurements Intervals [place] Rate: 132 P: [place]: QRS: 58 QRSD: 122 T: 160 QT: 319 QTc: 473 Interpretive Statements ATRIAL FIBRILLATION WITH RAPID VENTRICULAR RESPONSE WITH ABERRANT CONDUCTION OR VENTRICULAR PREMATURE COMPLEXES LEFT BUNDLE BRANCH BLOCK Compared to ECG 08/02/2020 14:16:28 ST (T wave) deviation now present Sinus rhythm no longer present Electronically Signed On 08-03-2020 20:47:06 MECHANICAL DESIGN DRAFTER by Lauren Spangler M.D. [id number]
[2020-08-03 06:00] LABS: Basophils % 0.4 %; Eosinophils % 0.4 %; Hematocrit 38.9 % (42.0-52.0); Hemoglobin 12.7 g/dL (11.7-16.6); Lymphocytes # 0.6 10^3/uL (0.8-4.8); Lymphocytes % 7.8 %; Mean Corpuscular HGB Conc 32.6 g/dL (30.0-36.0); Mean Corpuscular Hemoglobin 27.5 pg (28.0-34.0); Mean Corpuscular Volume 84.4 fL (80-94); Mean Platelet Volume 11.8 fL (7.4-10.4); Monocytes # 0.6 10^3/uL (0.2-0.9); Monocytes % 8.3 %; Neutrophils # 6.19 10^3/uL (1.8-7.7); Neutrophils % 81.6 %; Nucleated Red Blood Cells % 0 %; Platelet Count 195 10^3/cmm (130-400); Red Blood Count 4.61 10^6/uL (4.1-5.3); Red Cell Distribution Width 15.2 % (12.1-15.1); White Blood Count 7.6 10^3/uL (4.0-10.0)
[2020-08-03 06:29] LABS: Glucose Point of Care 102 mg/dL (70-110)
[2020-08-03] MEDS: metoprolol tartrate 50 mg Tablet 100 MG PO ×2 (06:31→17:05)
[2020-08-03] MEDS: apixaban 5 mg Tablet PO (06:31)
--- NOTE | 2020-08-03 06:39 | NUR.SHIFT ---
Patient had an uneventful until he started to have afib w rvr. It first started to drop transistion from 150's to below 100's and now it is sustained above 130's. EKG was obtained. Dr notified, orders given. Metoprolol 100mg was admin. Orders given to continue to monitor.
[2020-08-03 06:48] LABS: Lactate (Lactic Acid level) 1.2 mmol/L (0.5-2.2)
[2020-08-03 06:53] LABS: NT Pro B Type Natriuretic Pept 1812 pg/mL (0-450); Procalcitonin 0.06 ng/mL (0-0.5)
[2020-08-03 06:58] LABS: Alanine Aminotransferase 39 U/L (0-41); Albumin Level 3.1 g/dL (3.5-5.2); Alkaline Phosphatase 127 IU/L (40-130); Aspartate Amino Transferase 31 U/L (0-40); Blood Urea Nitrogen 20 mg/dL (8-23); C Reactive Protein 44.8 mg/L (0.0-4.9); Carbon Dioxide 24 mmol/L (22-29); Chloride 100 mmol/L (98-107); Glucose 111 mg/dL (65-115); Magnesium 1.7 mg/dL (1.7-2.3); Osmolality Calculated 287 mOsm/kg (285-295); Sodium 137 mmol/L (136-145); Thyroid Stimulating Hormone 0.36 uIU/mL (0.27-4.20); Total Bilirubin 0.4 mg/dL (0.15-1.2); Total Protein 6.1 g/dL (6.6-8.7)
--- NOTE | 2020-08-03 07:00 | XR_ITS ---
WS: [id number] PORTABLE CHEST HISTORY: sob COMPARISON: 08/02/2020 Hyperinflated lungs with changes of chronic emphysema. Scarring or chronic atelectasis at the lung ba ses. No focal well formed pneumonia. No pleural effusion or pneumothorax. Cardiac size: Normal. Mediastinum/Aorta: Mild atherosclerosis aorta. No osseous abnormality seen. XR/XR chest 1V portable [id number] IMPRESSION: 1. Moderately severe chronic emphysema. 2. Bibasilar areas of scarring or subsegmental atelectasis.
[2020-08-03 07:07] LABS: Chol HDL Ratio 1.92 mg/dL (1.0-5.00); Cholesterol 127 mg/dL (0-200); Creatine Phosphokinase 73 U/L (39-308); HDL Cholesterol 66 mg/dL (60-100); LDL Cholesterol Calculated 45 mg/dL (50-129); LDL HDL Ratio 0.68 RATIO (0.00-3.22); Triglycerides 82 mg/dL (0-150)
[2020-08-03 07:11] LABS: Anion Gap 17.1 (5-19); Estmated Average Glucose 137; Hemoglobin A1C 6.4 % (4.0-6.0); Potassium 4.1 mmol/L (3.5-5.1)
--- NOTE | 2020-08-03 08:00 | CT_ITS ---
WS: [id number] CT CHEST WITHOUT INTRAVENOUS CONTRAST HISTORY: covid 19, short of breath. TECHNIQUE: Contiguous 5 mm axial imaging performed on the thorax. Coronal and sagittal reformats are submitted. All CT scans at [facility] use at least one of these dose optimization techniq ues: automated exposure control; mA and/or kV adjustment per patient size (includes targeted exams wh ere dose is matched to clinical indication); or iterative reconstruction. CONTRAST: None DLP: 684.41 mGy.cm COMPARISON: 10/16/2018 Lungs and central airway: Severe hyperinflation from emphysema. Extensive bullous disease with biapic al pleural thickening. Increase in the linear nodule measuring 9.7 mm RIGHT upper lobe with mild spic ulation. This could be an area of progressive scarring or neoplasm along the scar line. Interstitial thickening at the lung bases has progressed. Suspect superimposed pneumonitis on the patient's chroni c lung disease. Pleura: Normal. No pleural effusion. Heart and pericardium: Normal size heart. Extensive atherosclerosis within the [place] coronary arteri es. Mediastinum and elyse: No adenopathy identified. Vessels: Mild atherosclerosis aorta. Normal size pulmonary artery. Chest wall and lower neck: No soft tissue masses. Upper abdomen: Cholelithiasis without acute cholecystitis. Small hiatal hernia. No adrenal mass. Exop hytic low-attenuation mass measuring 2.2 cm from the posterior superior LEFT kidney was seen on the p rior study without increase in size. Soft tissue lipoma along the LEFT lateral abdominal wall. Bilate ral perinephric stranding, greater on the LEFT than the RIGHT. Osseous structures: Increase in thoracic kyphosis. Mild degenerative disc disease and spondylosis. CT/CT chest wo con [id number] IMPRESSION: 1. Severe chronic emphysema. 2. Mild increase in interstitial thickening at the lung bases may be superimpo sed pneumonitis on chronic lung disease. 3. Mild increase in the soft tissue nodule with spiculation RIGHT upper lobe n ow measuring 9.7 mm. This may be progressive scarring or early neoplasm. Recomm end follow-up CT chest in 3-4 months. 4. Coronary artery atherosclerosis. 5. Cholelithiasis.
[2020-08-03] MEDS: azithromycin 500 MG in sodium chloride 0.9% 250 ML 250 MG IV (08:10)
[2020-08-03] MEDS: lisinopril 20 mg Tablet 40 MG PO (08:10)
[2020-08-03] MEDS: zinc gluconate 50 mg Tablet PO (08:10)
[2020-08-03] MEDS: potassium chloride ER 20 mEq Tablet PO (08:10)
[2020-08-03] MEDS: pantoprazole DR 40 mg Tablet PO (08:10)
[2020-08-03] MEDS: ascorbic acid 500 mg Tablet 1000 MG PO ×2 (08:10→17:04)
[2020-08-03] MEDS: FUROsemide 40 mg Tablet PO (08:11)
[2020-08-03] MEDS: dexamethasone 4 mg/mL INJ 6 MG IVP (08:11)
[2020-08-03] MEDS: roflumilast 500 mcg Tablet PO (08:11)
[2020-08-03] MEDS: amlodipine 10 mg Tablet 5 MG PO (08:11)
--- NOTE | 2020-08-03 08:15 | PC.NURSE ---
Azithromycin was given. There was no bar code on the bag that would scan.
[2020-08-03] MEDS: cefTRIAXone 1,000 MG in sodium chloride 0.9% (plus) 50 ML 100 MG IV (10:11)
[2020-08-03 10:45] LABS: Glucose Point of Care 156 mg/dL (70-110)
--- NOTE | 2020-08-03 12:28 | P.PN_ITS ---
Subjective Subjective: Interval history: Patient tells me that he continues to feel short of breath, some at rest, no fevers, no chest pain, no lightheaded, dizziness, has a good appetite Vitals/I&O/Wt Last Vital Signs Temp 97.9 F 08/03/20 11:27 Pulse 67 08/03/20 11:48 Resp 18 08/03/20 11:48 BP 112/72 08/03/20 11:27 Pulse Ox 93 08/03/20 11:48 08/02/20 08/03/20 08/03/20 22:59 06:59 14:59 Intake Total 300 / 300 1432.5 / 1732.5 540 / 540 Output Total 800 / 800 200 / 200 Balance 300 / 300 632.5 / 932.5 340 / 340 Weight last 48 hrs Weight 70.67 kg Physical Exam Const: COMMON NORMALS: no acute distress and patient oriented x3 HENMT: COMMON NORMALS: normocephalic HEAD & SCALP: normocephalic Neck/C-Spine: COMMON NORMALS: no JVD Resp: COMMON NORMALS: normal respiratory effort, No retractions and No use of accessory muscles AUSCULTATION: breath sounds absent bilateral Cardio: COMMON NORMALS: no JVD, regular rate, regular rhythm, S1 normal heart sound present and S2 normal heart sound present RATE: regular rate RHYTHM: regular rhythm HEART SOUNDS: S1 normal heart sound present and S2 normal heart sound present GI: COMMON NORMALS: Normal to inspection, nondistended, normoactive bowel sounds present, Soft to palpation, non-tender, No hepatosplenomegaly present, no masses and no bruits PALPATION: Yes Soft to palpation and Yes No hepatosplenomegaly present Extremity: COMMON NORMALS: capillary refill normal, no clubbing, cyanosis or edema, no calf tenderness and no pedal edema Neuro: COMMON NORMALS: patient oriented x3 Psych: COMMON NORMALS: mental status grossly normal Data : 08/03/20 05:45 08/03/20 05:45 A&P Assessment and plan (1) Acute respiratory failure with hypoxia: -Secondary to COVID-19 pneumonia, possible secondary bacterial pneumonia, COPD Plan: -Admit to general medical floors -Rocephin and azithromycin -Continue Decadron -Remdesivir -Started on convalescent plasma given continued shortness of breath and weakness -Symbicort and Advair and Daliresp -As needed albuterol -Vitamin C, zinc -Monitor respiratory status closely as he has severe COPD, high risk of intubation -Patient is a full code -Eliquis for DVT prophylaxis -Sputum cultures, blood cultures, urine bacterial antigens Status: Acute (2) Pneumonia due to COVID-19 virus: Status: Acute (3) Secondary bacterial pneumonia: Status: Acute (4) Heart failure with preserved ejection fraction: -BNP is a bit elevated at 1419, has no complaints of orthopnea, paroxysmal nocturnal dyspnea, no bilateral extremity edema, chest x-ray does not show fluid overload, echocardiogram in November showed an EF of 50 to 55%, no diagnostic regional wall motion abnormality, Status: Acute (5) Atrial fibrillation: Continue Eliquis, metoprolol Status: Acute Qualifiers: Atrial fibrillation type: unspecified chronic Qualified Code(s): I48.20 - Chronic atrial fibrillation, unspecified (6) LBBB (left bundle branch block): Status: Acute (7) COPD (chronic obstructive pulmonary disease): Status: Acute (8) ASHD (arteriosclerotic heart disease): Status: Acute (9) HTN (hypertension): Status: Acute Qualifiers: Hypertension type: essential hypertension Qualified Code(s): I10 - Essential (primary) hypertension (10) MOSHE (obstructive sleep apnea): Status: Acute (11) Hyperlipidemia: Status: Acute (12) Diabetes 1.5, managed as type 2: Status: Acute Additional A&P Information Plan for today, continue Decadron, remdesivir, antibiotics, added convalescent plasma, aggressive pulmonary toilet Attestations Medical Necessity Statement*: Patient requires hospitalization for acute respiratory failure with hypoxia secondary COVID-19 pneumonia Coding Level of Care Code Acute 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 [facility] Diagnoses Acute respiratory failure with hypoxia J96.01 Pneumonia due to COVID-19 virus U07.1; J12.89 Secondary bacterial pneumonia J15.9 Heart failure with preserved ejection fraction I50.30 Atrial fibrillation I48.20 Atrial fibrillation type: unspecified chronic LBBB (left bundle branch block) I44.7 COPD (chronic obstructive pulmonary disease) J44.9 ASHD (arteriosclerotic heart disease) I25.10 HTN (hypertension) I10 Hypertension type: essential hypertension MOSHE (obstructive sleep apnea) G47.33 Hyperlipidemia E78.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
[2020-08-03 16:17] LABS: Glucose Point of Care 191 mg/dL (70-110)
[2020-08-03] MEDS: remdesivir 100 MG in sodium chloride 0.9% (100 ml) 100 ML IV (17:04)
--- NOTE | 2020-08-03 19:21 | PC.NURSE ---
Report to Yumiko GOTTLIEB
[2020-08-03 20:14] LABS: Glucose Point of Care 150 mg/dL (70-110)
[2020-08-03] MEDS: atorvastatin 40 mg Tablet 20 MG PO (20:40)
[2020-08-04] VITALS (16 sets, daily range): BP systolic 132–160; BP diastolic 63–75; PULSE 46–80; RESP 16–21; TEMP 35.8–37.2; O2SAT 93–100
[2020-08-04] MEDS: apixaban 5 mg Tablet PO ×3 (00:15→20:09)
[2020-08-04] MEDS: albuterol 8 gm MDI 1 PUFF INHALATION ×6 (03:46→23:59)
[2020-08-04 04:32] LABS: ABG PCO2 40.1 mmHg (35-45); ABG PH Result 7.44 (7.35-7.45); Arterial Blood Gas Hematocrit 41.4 % (42-52); Base Excess ABG 2.9 mmol/L (-2.0-2.0); Blood Gas Allen Test Pos; Blood Gas Sample Site Radial, right; Blood Gas Sample Type Arterial; HCO3 ABG 27.3 mmol/L (22-26); Oxygen Device NC; PO2 ABG 85.9 mmHg (80.0-100.0)
[2020-08-04] MEDS: sodium chloride 0.9% 1,000 ML 75 ML IV ×2 (05:18→20:09)
[2020-08-04 05:26] LABS: Basophils % 0.3 %; Hematocrit 35.5 % (42.0-52.0); Hemoglobin 11.2 g/dL (11.7-16.6); Lymphocytes # 0.9 10^3/uL (0.8-4.8); Lymphocytes % 11.7 %; Mean Corpuscular HGB Conc 31.5 g/dL (30.0-36.0); Mean Corpuscular Hemoglobin 27.1 pg (28.0-34.0); Monocytes # 0.9 10^3/uL (0.2-0.9); Monocytes % 12.5 %; Neutrophils # 5.26 10^3/uL (1.8-7.7); Neutrophils % 72.2 %; Nucleated Red Blood Cells % 0 %; Platelet Count 198 10^3/cmm (130-400); Red Blood Count 4.13 10^6/uL (4.1-5.3); Red Cell Distribution Width 15.6 % (12.1-15.1); White Blood Count 7.3 10^3/uL (4.0-10.0)
[2020-08-04 05:55] LABS: Lactate (Lactic Acid level) 1.1 mmol/L (0.5-2.2)
[2020-08-04 06:31] LABS: Glucose Point of Care 121 mg/dL (70-110)
[2020-08-04] MEDS: dexamethasone 4 mg/mL INJ 6 MG IVP (07:38)
[2020-08-04] MEDS: azithromycin 500 MG in sodium chloride 0.9% 250 ML 250 MG IV (07:39)
[2020-08-04] MEDS: zinc gluconate 50 mg Tablet PO (08:11)
[2020-08-04] MEDS: lisinopril 20 mg Tablet 40 MG PO (08:11)
[2020-08-04] MEDS: cefTRIAXone 1,000 MG in sodium chloride 0.9% (plus) 50 ML 100 MG IV (08:12)
[2020-08-04] MEDS: potassium chloride ER 20 mEq Tablet PO (08:12)
[2020-08-04] MEDS: FUROsemide 40 mg Tablet PO (08:12)
[2020-08-04] MEDS: roflumilast 500 mcg Tablet PO (08:12)
[2020-08-04] MEDS: metoprolol tartrate 50 mg Tablet 100 MG PO ×2 (08:12→17:31)
[2020-08-04] MEDS: ascorbic acid 500 mg Tablet 1000 MG PO ×2 (08:12→17:28)
[2020-08-04] MEDS: pantoprazole DR 40 mg Tablet PO (08:12)
[2020-08-04] MEDS: amlodipine 10 mg Tablet 5 MG PO (08:12)
[2020-08-04 11:38] LABS: Glucose Point of Care 154 mg/dL (70-110)
[2020-08-04 11:47] LABS: NT Pro B Type Natriuretic Pept 1984 pg/mL (0-450); Procalcitonin 0.05 ng/mL (0-0.5)
[2020-08-04 11:58] LABS: Alanine Aminotransferase 34 U/L (0-41); Albumin Level 3.1 g/dL (3.5-5.2); Alkaline Phosphatase 111 IU/L (40-130); Aspartate Amino Transferase 24 U/L (0-40); Blood Urea Nitrogen 24 mg/dL (8-23); C Reactive Protein 22.7 mg/L (0.0-4.9); Calcium 8.9 mg/dL (8.5-10.5); Carbon Dioxide 27 mmol/L (22-29); Chloride 102 mmol/L (98-107); Creatine Phosphokinase 70 U/L (39-308); Globulin 2.8 g/dL (1.3-4.6); Glucose 167 mg/dL (65-115); Magnesium 1.7 mg/dL (1.7-2.3); Osmolality Calculated 292 mOsm/kg (285-295); Phosphorus 2.6 mg/dL (2.5-4.5); Sodium 137 mmol/L (136-145); Total Bilirubin 0.2 mg/dL (0.15-1.2); Total Protein 5.9 g/dL (6.6-8.7)
[2020-08-04 11:59] LABS: Anion Gap 12.3 (5-19); Potassium 4.3 mmol/L (3.5-5.1)
--- NOTE | 2020-08-04 14:17 | PM.PN ---
Subjective Subjective: Interval history: This morning patient was examined, sitting up in her chair, tells me that he is doing better, but still complains of shortness of breath with exertion, increased productive cough, no fevers, no chills, Vitals/I&O/Wt Last Vital Signs Temp 96.6 F L 08/04/20 11:40 Pulse 65 08/04/20 12:12 Resp 16 08/04/20 12:12 BP 139/70 08/04/20 11:40 Pulse Ox 97 08/04/20 12:12 08/03/20 08/04/20 08/04/20 22:59 06:59 14:59 Intake Total 1550 / 2230 1556.25 / 3786.25 240 / 240 Output Total 600 / 800 1150 / 1950 600 / 600 Balance 950 / 1430 406.25 / 1836.25 -360 / -360 Physical Exam Const: COMMON NORMALS: no acute distress and patient oriented x3 HENMT: COMMON NORMALS: normocephalic HEAD & SCALP: normocephalic Neck/C-Spine: COMMON NORMALS: no JVD Resp: COMMON NORMALS: normal respiratory effort, No retractions and No use of accessory muscles AUSCULTATION: diminished lung sounds Cardio: COMMON NORMALS: no JVD, regular rate, regular rhythm, S1 normal heart sound present and S2 normal heart sound present RATE: regular rate RHYTHM: regular rhythm HEART SOUNDS: S1 normal heart sound present and S2 normal heart sound present GI: COMMON NORMALS: Normal to inspection, nondistended, normoactive bowel sounds present, Soft to palpation, non-tender, No hepatosplenomegaly present, no masses and no bruits PALPATION: Yes Soft to palpation and Yes No hepatosplenomegaly present Extremity: COMMON NORMALS: capillary refill normal, no clubbing, cyanosis or edema, no calf tenderness and no pedal edema Neuro: COMMON NORMALS: patient oriented x3 Psych: COMMON NORMALS: mental status grossly normal Data : 08/04/20 05:12 08/04/20 11:00 A&P Assessment and plan (1) Acute respiratory failure with hypoxia: -Secondary to COVID-19 pneumonia, possible secondary bacterial pneumonia, COPD Plan: -Admit to general medical floors -Rocephin and azithromycin -Continue Decadron -Remdesivir - convalescent plasma given continued shortness of breath and weakness -Symbicort and Advair and Daliresp -As needed albuterol -Vitamin C, zinc -Monitor respiratory status closely as he has severe COPD, high risk of intubation -Patient is a full code -Eliquis for DVT prophylaxis -Sputum cultures, blood cultures, urine bacterial antigens Plan for today, continue antibiotics, Decadron remdesivir convalescent plasma, continue aggressive pulmonary toilet, Status: Acute (2) Pneumonia due to COVID-19 virus: Status: Acute (3) Secondary bacterial pneumonia: Status: Acute (4) Heart failure with preserved ejection fraction: -BNP is a bit elevated at 1419, has no complaints of orthopnea, paroxysmal nocturnal dyspnea, no bilateral extremity edema, chest x-ray does not show fluid overload, echocardiogram in November showed an EF of 50 to 55%, no diagnostic regional wall motion abnormality, Status: Acute (5) Atrial fibrillation: Continue Eliquis, metoprolol Status: Acute Qualifiers: Atrial fibrillation type: unspecified chronic Qualified Code(s): I48.20 - Chronic atrial fibrillation, unspecified (6) LBBB (left bundle branch block): Status: Acute (7) COPD (chronic obstructive pulmonary disease): Status: Acute (8) ASHD (arteriosclerotic heart disease): Status: Acute (9) HTN (hypertension): Status: Acute Qualifiers: Hypertension type: essential hypertension Qualified Code(s): I10 - Essential (primary) hypertension (10) MOSHE (obstructive sleep apnea): Status: Acute (11) Hyperlipidemia: Status: Acute (12) Diabetes 1.5, managed as type 2: Status: Acute Attestations Medical Necessity Statement*: Patient requires hospitalization for acute respiratory failure hypoxia secondary to Covid pneumonia Coding Level of Care Code Acute 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 Associate for [facility] Diagnoses Acute respiratory failure with hypoxia J96.01 Pneumonia due to COVID-19 virus U07.1; J12.89 Secondary bacterial pneumonia J15.9 Heart failure with preserved ejection fraction I50.30 Atrial fibrillation I48.20 Atrial fibrillation type: unspecified chronic LBBB (left bundle branch block) I44.7 COPD (chronic obstructive pulmonary disease) J44.9 ASHD (arteriosclerotic heart disease) I25.10 HTN (hypertension) I10 Hypertension type: essential hypertension MOSHE (obstructive sleep apnea) G47.33 Hyperlipidemia E78.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
--- NOTE | 2020-08-04 15:06 | PC.RESP ---
PULMONARY REHAB INFORMATION SENT TO PATIENT.
[2020-08-04 16:09] LABS: Glucose Point of Care 207 mg/dL (70-110)
[2020-08-04] MEDS: remdesivir 100 MG in sodium chloride 0.9% (100 ml) 100 ML IV (17:30)
[2020-08-04] MEDS: atorvastatin 40 mg Tablet 20 MG PO (22:01)
[2020-08-05] VITALS (12 sets, daily range): BP systolic 109–197; BP diastolic 64–84; PULSE 47–75; RESP 15–18; TEMP 36–36.9; O2SAT 93–99
[2020-08-05] MEDS: albuterol 8 gm MDI 1 PUFF INHALATION ×5 (04:00→19:46)
[2020-08-05 04:16] LABS: ABG PCO2 38.3 mmHg (35-45); ABG PH Result 7.46 (7.35-7.45); Arterial Blood Gas Hematocrit 38.3 % (42-52); Base Excess ABG 3.5 mmol/L (-2.0-2.0); Blood Gas Allen Test Pos; Blood Gas Sample Site Brachial, right; Blood Gas Sample Type Arterial; HCO3 ABG 27.5 mmol/L (22-26); Oxygen Device NC; PO2 ABG 91.8 mmHg (80.0-100.0)
[2020-08-05 04:47] LABS: Basophils % 0.5 %; Hematocrit 34.3 % (42.0-52.0); Hemoglobin 10.9 g/dL (11.7-16.6); Lymphocytes # 1.1 10^3/uL (0.8-4.8); Lymphocytes % 13.2 %; Mean Corpuscular HGB Conc 31.8 g/dL (30.0-36.0); Mean Corpuscular Volume 84.9 fL (80-94); Mean Platelet Volume 11.2 fL (7.4-10.4); Monocytes # 0.9 10^3/uL (0.2-0.9); Monocytes % 10.8 %; Neutrophils # 5.79 10^3/uL (1.8-7.7); Nucleated Red Blood Cells % 0 %; Platelet Count 204 10^3/cmm (130-400); Red Blood Count 4.04 10^6/uL (4.1-5.3); Red Cell Distribution Width 15.3 % (12.1-15.1); White Blood Count 8.2 10^3/uL (4.0-10.0)
[2020-08-05 05:15] LABS: NT Pro B Type Natriuretic Pept 2071 pg/mL (0-450); Procalcitonin 0.06 ng/mL (0-0.5)
[2020-08-05 05:26] LABS: Alanine Aminotransferase 33 U/L (0-41); Albumin Level 2.9 g/dL (3.5-5.2); Alkaline Phosphatase 103 IU/L (40-130); Anion Gap 10.2 (5-19); Aspartate Amino Transferase 19 U/L (0-40); Blood Urea Nitrogen 24 mg/dL (8-23); C Reactive Protein 14.1 mg/L (0.0-4.9); Calcium 8.6 mg/dL (8.5-10.5); Carbon Dioxide 28 mmol/L (22-29); Chloride 104 mmol/L (98-107); Creatine Phosphokinase 63 U/L (39-308); Globulin 2.7 g/dL (1.3-4.6); Glucose 133 mg/dL (65-115); Magnesium 1.7 mg/dL (1.7-2.3); Osmolality Calculated 292 mOsm/kg (285-295); Phosphorus 2.7 mg/dL (2.5-4.5); Potassium 4.2 mmol/L (3.5-5.1); Sodium 138 mmol/L (136-145); Total Bilirubin 0.3 mg/dL (0.15-1.2); Total Protein 5.6 g/dL (6.6-8.7)
[2020-08-05] MEDS: apixaban 5 mg Tablet PO ×2 (06:01→18:15)
[2020-08-05 07:58] LABS: Neutrophils % 75.5 %; Slide Review Slide Review Perform
[2020-08-05 08:16] LABS: Glucose Point of Care 139 mg/dL (70-110)
[2020-08-05 08:16] LABS: Glucose Point of Care 180 mg/dL (70-110)
[2020-08-05] MEDS: azithromycin 500 MG in sodium chloride 0.9% 250 ML 250 MG IV (09:19)
[2020-08-05] MEDS: dexamethasone 4 mg/mL INJ 6 MG IVP (09:20)
[2020-08-05] MEDS: lisinopril 20 mg Tablet 40 MG PO (09:23)
[2020-08-05] MEDS: amlodipine 10 mg Tablet 5 MG PO (09:23)
[2020-08-05] MEDS: roflumilast 500 mcg Tablet PO (09:23)
[2020-08-05] MEDS: potassium chloride ER 20 mEq Tablet PO (09:23)
[2020-08-05] MEDS: pantoprazole DR 40 mg Tablet PO (09:23)
[2020-08-05] MEDS: zinc gluconate 50 mg Tablet PO (09:23)
[2020-08-05] MEDS: FUROsemide 40 mg Tablet PO (09:24)
[2020-08-05] MEDS: metoprolol tartrate 50 mg Tablet 100 MG PO ×2 (09:24→18:11)
[2020-08-05] MEDS: ascorbic acid 500 mg Tablet 1000 MG PO ×2 (09:24→18:10)
[2020-08-05 12:07] LABS: Glucose Point of Care 172 mg/dL (70-110)
[2020-08-05] MEDS: cefTRIAXone 1,000 MG in sodium chloride 0.9% (plus) 50 ML 100 MG IV (12:22)
--- NOTE | 2020-08-05 15:27 | PC.SOCIAL ---
*IMM* Patient received IMM over the phone.
--- NOTE | 2020-08-05 15:41 | PM.PN ---
Subjective Subjective: Interval history: This morning patient was examined, he is on 4 L, denies fevers, chills, still complaining of shortness of breath, and weakness, but overall doing better Vitals/I&O/Wt Last Vital Signs Temp 97.0 F L 08/05/20 11:36 Pulse 75 08/05/20 11:36 Resp 16 08/05/20 11:36 BP 123/84 08/05/20 11:36 Pulse Ox 97 08/05/20 11:36 08/05/20 08/05/20 08/05/20 06:59 14:59 22:59 Intake Total 360 / 360 Output Total 1175 / 2475 300 / 300 Balance -1175 / -488 60 / 60 Physical Exam Const: COMMON NORMALS: no acute distress and patient oriented x3 HENMT: COMMON NORMALS: normocephalic HEAD & SCALP: normocephalic Neck/C-Spine: COMMON NORMALS: no JVD Resp: COMMON NORMALS: normal respiratory effort, No retractions and No use of accessory muscles AUSCULTATION: breath sounds absent Cardio: COMMON NORMALS: no JVD, regular rate, regular rhythm, S1 normal heart sound present and S2 normal heart sound present RATE: regular rate RHYTHM: regular rhythm HEART SOUNDS: S1 normal heart sound present and S2 normal heart sound present GI: COMMON NORMALS: Normal to inspection, nondistended, normoactive bowel sounds present, Soft to palpation, non-tender, No hepatosplenomegaly present, no masses and no bruits PALPATION: Yes Soft to palpation and Yes No hepatosplenomegaly present Extremity: COMMON NORMALS: capillary refill normal, no clubbing, cyanosis or edema, no calf tenderness and no pedal edema Neuro: COMMON NORMALS: patient oriented x3 Psych: COMMON NORMALS: mental status grossly normal Data : 08/05/20 04:32 08/05/20 04:32 A&P Assessment and plan (1) Acute respiratory failure with hypoxia: -Secondary to COVID-19 pneumonia, possible secondary bacterial pneumonia, COPD Plan: -Admit to general medical floors -Rocephin and azithromycin -Continue Decadron -Remdesivir - convalescent plasma has finished treatment -Symbicort and Advair and Daliresp -As needed albuterol -Vitamin C, zinc -Monitor respiratory status closely as he has severe COPD, high risk of intubation -Patient is a full code -Eliquis for DVT prophylaxis -Sputum cultures, blood cultures, urine bacterial antigens Plan for today, continue antibiotics, Decadron remdesivir convalescent plasma, continue aggressive pulmonary toilet, likely discharge the next 24 hours Status: Acute (2) Pneumonia due to COVID-19 virus: Status: Acute (3) Secondary bacterial pneumonia: Status: Acute (4) Heart failure with preserved ejection fraction: -BNP is a bit elevated at 1419, has no complaints of orthopnea, paroxysmal nocturnal dyspnea, no bilateral extremity edema, chest x-ray does not show fluid overload, echocardiogram in November showed an EF of 50 to 55%, no diagnostic regional wall motion abnormality, Status: Acute (5) Atrial fibrillation: Continue Eliquis, metoprolol Status: Acute Qualifiers: Atrial fibrillation type: unspecified chronic Qualified Code(s): I48.20 - Chronic atrial fibrillation, unspecified (6) LBBB (left bundle branch block): Status: Acute (7) COPD (chronic obstructive pulmonary disease): Status: Acute (8) ASHD (arteriosclerotic heart disease): Status: Acute (9) HTN (hypertension): Status: Acute Qualifiers: Hypertension type: essential hypertension Qualified Code(s): I10 - Essential (primary) hypertension (10) MOSHE (obstructive sleep apnea): Status: Acute (11) Hyperlipidemia: Status: Acute (12) Diabetes 1.5, managed as type 2: Status: Acute Additional A&P Information Plan for today, continue Decadron, remdesivir, antibiotics, added convalescent plasma, aggressive pulmonary toilet Attestations Medical Necessity Statement*: Patient requires hospitalization for acute respiratory failure secondary COVID-19 Coding Level of Care Code Acute 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
[2020-08-05 16:41] LABS: Glucose Point of Care 183 mg/dL (70-110)
[2020-08-05] MEDS: remdesivir 100 MG in sodium chloride 0.9% (100 ml) 100 ML IV (18:15)
[2020-08-05] MEDS: atorvastatin 40 mg Tablet 20 MG PO (20:02)
[2020-08-05 21:20] LABS: Glucose Point of Care 242 mg/dL (70-110)
[2020-08-06] VITALS (9 sets, daily range): BP systolic 112–165; BP diastolic 54–80; PULSE 42–69; RESP 15–18; TEMP 35.8–36.9; O2SAT 94–99
[2020-08-06 04:23] LABS: Basophils % 0.5 %; Hematocrit 34.1 % (42.0-52.0); Lymphocytes # 1.1 10^3/uL (0.8-4.8); Mean Corpuscular HGB Conc 32.3 g/dL (30.0-36.0); Mean Corpuscular Hemoglobin 27.3 pg (28.0-34.0); Mean Corpuscular Volume 84.6 fL (80-94); Mean Platelet Volume 11.2 fL (7.4-10.4); Monocytes # 0.5 10^3/uL (0.2-0.9); Monocytes % 6.7 %; Neutrophils # 5.46 10^3/uL (1.8-7.7); Neutrophils % 71.9 %; Nucleated Red Blood Cells % 0 %; Platelet Count 215 10^3/cmm (130-400); Red Blood Count 4.03 10^6/uL (4.1-5.3); Red Cell Distribution Width 15.4 % (12.1-15.1); White Blood Count 7.6 10^3/uL (4.0-10.0)
[2020-08-06 04:51] LABS: Alanine Aminotransferase 33 U/L (0-41); Albumin Level 2.6 g/dL (3.5-5.2); Alkaline Phosphatase 94 IU/L (40-130); Anion Gap 10.5 (5-19); Aspartate Amino Transferase 18 U/L (0-40); Blood Urea Nitrogen 26 mg/dL (8-23); C Reactive Protein 9.4 mg/L (0.0-4.9); Calcium 8.4 mg/dL (8.5-10.5); Carbon Dioxide 28 mmol/L (22-29); Chloride 103 mmol/L (98-107); Globulin 2.6 g/dL (1.3-4.6); Glucose 170 mg/dL (65-115); Magnesium 1.8 mg/dL (1.7-2.3); NT Pro B Type Natriuretic Pept 1737 pg/mL (0-450); Osmolality Calculated 293 mOsm/kg (285-295); Phosphorus 3.4 mg/dL (2.5-4.5); Potassium 4.5 mmol/L (3.5-5.1); Sodium 137 mmol/L (136-145); Total Bilirubin 0.3 mg/dL (0.15-1.2); Total Protein 5.2 g/dL (6.6-8.7)
[2020-08-06 05:27] LABS: Slide Review Slide Review Perform
[2020-08-06] MEDS: apixaban 5 mg Tablet PO (06:03)
[2020-08-06 06:25] LABS: Glucose Point of Care 167 mg/dL (70-110)
--- NOTE | 2020-08-06 07:00 | XRR_ITS ---
PROCEDURE INFORMATION: Exam: XR Chest, 1 View Exam date and time: 08/06/2020 12:00 AM Age: 75 years old Clinical indication: Shortness of breath; Patient HX: Low o2 sat, COVID exposure; Additional info: SOB TECHNIQUE: Imaging protocol: XR of the chest Views: Frontal portable upright view of the chest. COMPARISON: CT chest wo con [id number] 08/03/2020 9:17 AM FINDINGS: Tubes, catheters and devices: EKG leads are present overlying the chest. Lungs: Mild pulmonary hyperexpansion. Bibasilar subsegmental atelectasis/interstitial disease, stable. The pulmonary vasculature is normal. Pleural space: No pleural effusion. No pneumothorax. Heart/Mediastinum: The heart is normal in size and contour. Mediastinum: Stable. Vasculature: Mild aortic arch atherosclerotic calcification without ectasia. Bones/joints: Stable. XR/XR chest 1V portable [id number] IMPRESSION: 1. Mild pulmonary hyperexpansion. 2. Bibasilar subsegmental atelectasis/interstitial disease, stable.
[2020-08-06] MEDS: albuterol 8 gm MDI 1 PUFF INHALATION ×3 (08:05→11:35)
[2020-08-06] MEDS: lisinopril 20 mg Tablet 40 MG PO (08:12)
[2020-08-06] MEDS: dexamethasone 4 mg/mL INJ 6 MG IVP (08:12)
[2020-08-06] MEDS: metoprolol tartrate 50 mg Tablet 100 MG PO (08:13)
[2020-08-06] MEDS: roflumilast 500 mcg Tablet PO (08:13)
[2020-08-06] MEDS: ascorbic acid 500 mg Tablet 1000 MG PO (08:13)
[2020-08-06] MEDS: potassium chloride ER 20 mEq Tablet PO (08:13)
[2020-08-06] MEDS: pantoprazole DR 40 mg Tablet PO (08:13)
[2020-08-06] MEDS: zinc gluconate 50 mg Tablet PO (08:13)
[2020-08-06] MEDS: amlodipine 10 mg Tablet 5 MG PO (08:13)
[2020-08-06] MEDS: FUROsemide 40 mg Tablet PO (08:13)
[2020-08-06] MEDS: azithromycin 500 MG in sodium chloride 0.9% 250 ML 250 MG IV (08:14)
--- NOTE | 2020-08-06 08:25 | PC.NURSE ---
Dr. Gonzalez order to hold IV lasix due to administration of lasix PO this morning.
--- NOTE | 2020-08-06 10:35 | P.DS_ITS ---
Discharge Providers Date of Admission: 08/02/20 20:55 Date of Discharge: August 06, 2020 Attending Provider at Admission: Alesia Plasencia MD Attending Provider at Discharge: Mahesh Gonzalez MD Primary Care Provider: Jina HooperP-C Diagnoses at Discharge Discharge Diagnosis (1) Acute respiratory failure with hypoxia: Status: Acute (2) Pneumonia due to COVID-19 virus: Status: Acute (3) Secondary bacterial pneumonia: Status: Acute (4) Heart failure with preserved ejection fraction: Status: Acute (5) Atrial fibrillation: Status: Acute Qualifiers: Atrial fibrillation type: unspecified chronic Qualified Code(s): I48.20 - Chronic atrial fibrillation, unspecified (6) LBBB (left bundle branch block): Status: Acute (7) COPD (chronic obstructive pulmonary disease): Status: Acute (8) ASHD (arteriosclerotic heart disease): Status: Acute (9) HTN (hypertension): Status: Acute Qualifiers: Hypertension type: essential hypertension Qualified Code(s): I10 - Essential (primary) hypertension (10) MOSHE (obstructive sleep apnea): Status: Acute (11) Hyperlipidemia: Status: Acute (12) Diabetes 1.5, managed as type 2: Status: Acute Reason for Visit Reason for Visit: LOW O2 SAT COVID EXPOSURE Hospital Course Hospital Course Jonathan Sultana is a 75 year old male with COPD 4 L oxygen dependent, paroxysmal atrial fibrillation, chronic anticoagulation with Eliquis, heart failure with preserved ejection fraction, carotid bilateral stent placement, CAD, noninsulin- dependent type 2 diabetes mellitus, CKD, GERD, hypertension, hyperlipidemia, MOSHE, who presents to [facility] due to complaints of weakness, low- grade fevers, shortness of breath at rest and exertion. Patient was admitted to [facility], Covid unit, second floor for acute respiratory failure with hypoxia secondary to COVID-19 pneumonia, COPD exacerbation, possible secondary bacterial pneumonia. Received a full 5 days of Decadron, remdesivir, received 2 days of convalescent plasma, antibiotic therapy, inhaler therapy, patient's clinical status improved, ambulating without significant symptomatology, he was also diuresed a bit given his elevated BNP's. Will be discharged on prednisone, doxycycline, inhalers, vitamin C, zinc. In addition I have advised him to continue to socially isolate, hand wash, face mask, monitor for fevers. In terms of his hypercoagulability prophylaxis for COVID-19, he takes Eliquis for atrial fibrillation, advised to continue Eliquis. Monitor for signs and symptoms of DVTs and PEs. Monitor for signs symptoms of GI bleed. Physical Exam Const: COMMON NORMALS: no acute distress and patient oriented x3 HENMT: COMMON NORMALS: normocephalic HEAD & SCALP: normocephalic Neck/C-Spine: COMMON NORMALS: no JVD Resp: COMMON NORMALS: normal respiratory effort, No retractions, No use of accessory muscles and clear to auscultation bilaterally AUSCULTATION: clear to auscultation bilaterally Cardio: COMMON NORMALS: no JVD, regular rate, regular rhythm, S1 normal heart sound present and S2 normal heart sound present RATE: regular rate RHYTHM: regular rhythm HEART SOUNDS: S1 normal heart sound present and S2 normal heart sound present GI: COMMON NORMALS: Normal to inspection, nondistended, normoactive bowel sounds present, Soft to palpation, non-tender, No hepatosplenomegaly present, no masses and no bruits PALPATION: Yes Soft to palpation and Yes No hepatospl enomegaly present Extremity: COMMON NORMALS: capillary refill normal, no clubbing, cyanosis or edema, no calf tenderness and no pedal edema Neuro: COMMON NORMALS: patient oriented x3 Psych: COMMON NORMALS: mental status grossly normal Discharge Data Data Completed and Pending: Completed Studies During Hospitalization Category Date Time Status CT chest wo con 7 1250 Urgent Cat Scan 08/03/20 08:00 Completed XR chest 1V daniel ble [id number] Routine Exams 08/03/20 07:00 Completed XR chest 1V daniel ble [id number] Routine Exams 08/06/20 07:00 Completed XR chest 1V daniel ble [id number] Stat Exams 08/02/20 13:46 Completed Pending at discharge Category Date Time Status C Reactive Protei n AM LABS Lab 08/07/20 04:00 Ordered C Reactive Protei n AM LABS Lab 08/08/20 04:00 Ordered Complete Blood Co unt w/Auto AM LABS Lab 08/07/20 04:00 Ordered Complete Blood Co unt w/Auto AM LABS Lab 08/08/20 04:00 Ordered Comprehensive Met abolic Panel AM MICHAEL BS Lab 08/07/20 04:00 Ordered Comprehensive Met abolic Panel AM MICHAEL BS Lab 08/08/20 04:00 Ordered Magnesium AM LABS Lab 08/07/20 04:00 Ordered Magnesium AM LABS Lab 08/08/20 04:00 Ordered NT Pro B Type Tracie riuretic Pept QAM Lab 08/07/20 06:00 Ordered NT Pro B Type Tracie riuretic Pept QAM Lab 08/08/20 06:00 Ordered Phosphorus AM LAB S Lab 08/07/20 04:00 Ordered Phosphorus AM LAB S Lab 08/08/20 04:00 Ordered Labs from last 24 hours 08/06/20 08/06/20 08/06/20 06:06 04:15 04:15 WBC 7.6 RBC 4.03 L Hgb 11.0 L Hct 34.1 L MCV 84.6 MCH 27.3 L MCHC 32.3 RDW 15.4 H Plt Count 215 MPV 11.2 H Neut % (Auto) 71.9 Lymph % (Auto) 14.0 [place] % (Auto) 6.7 Eos % (Auto) 0.0 Baso % (Auto) 0.5 Neut # (Auto) 5.46 Lymph # (Auto) 1.1 [place] # (Auto) 0.5 Eos # (Auto) 0.0 Baso # (Auto) 0.0 Nucleated RBC % (a uto) 0 Nucleated RBCs # 0.0 Sodium 137 Potassium 4.5 Chloride 103 Carbon Dioxide 28 Anion Gap 10.5 BUN 26 H Creatinine 0.7 GFR Calculation Not Reportable Glucose 170 H POC Glucose 167 H Calculated Osmolal ity 293 Calcium 8.4 L Phosphorus 3.4 Magnesium 1.8 Total Bilirubin 0.3 AST 18 ALT 33 Alkaline Phosphata se 94 C-Reactive Protein 9.4 H NT-Pro-B Natriuret Pep 1737 H Total Protein 5.2 L Albumin 2.6 L Globulin 2.6 08/05/20 08/05/20 08/05/20 20:20 16:34 11:53 WBC RBC Hgb Hct MCV MCH MCHC RDW Plt Count MPV Neut % (Auto) Lymph % (Auto) [place] % (Auto) Eos % (Auto) Baso % (Auto) Neut # (Auto) Lymph # (Auto) [place] # (Auto) Eos # (Auto) Baso # (Auto) Nucleated RBC % (a uto) Nucleated RBCs # Sodium Potassium Chloride Carbon Dioxide Anion Gap BUN Creatinine GFR Calculation Glucose POC Glucose 242 H 183 H 172 H Calculated Osmolal ity Calcium Phosphorus Magnesium Total Bilirubin AST ALT Alkaline Phosphata se C-Reactive Protein NT-Pro-B Natriuret Pep Total Protein Albumin Globulin Vitals: Last Vital Signs Temp 97.1 F L 08/06/20 08:00 Pulse 69 08/06/20 08:03 Resp 18 08/06/20 08:03 BP 165/80 08/06/20 08:00 Pulse Ox 94 08/06/20 08:03 Discharge Plan Discharge Patient Disposition: Home Condition: Stable Prescriptions: New zinc gluconate 50 mg Tablet 50 mg PO DAILY 30 Days Qty: 30 RF: 0 prednisone 20 mg tablet 20 mg PO BID 5 Days Qty: 10 RF: 0 amlodipine 10 mg Tablet 5 mg PO DAILY 30 Days Qty: 30 RF: 0 pantoprazole 40 mg Tablet,Delayed Release (Dr/Ec) 40 mg PO DAILY 30 Days Qty: 30 RF: 0 potassium chloride [Klor-Con M20] 20 mEq Tablet,Er Particles/Crystals 20 meq PO DAILY 30 Days Qty: 30 RF: 0 ascorbic acid (vitamin C) [Vitamin C] 500 mg Tablet 1,000 mg PO BID 30 Days Qty: 120 RF: 0 albuterol sulfate [Ventolin HFA] 90 mcg/actuation Hfa Aerosol Inhaler 1 puff inhalation Q4H.RESPIRATORY PRN (Reason: shortness of breath or wheezing) Qty: 18 RF: 0 doxycycline hyclate 100 mg capsule 100 mg PO BID 5 Days Qty: 10 RF: 0 fluticasone propion-salmeterol [Advair Diskus] 250-50 mcg/dose blister with device 1 inh inhalation Q12H Qty: 60 RF: 0 Continued Eliquis 5 mg tablet 5 mg PO BID@07 RF: 0 atorvastatin 20 mg tablet 20 mg PO DAILY@21 RF: 0 Daliresp 500 mcg tablet 500 mcg PO DAILY@07 RF: 0 Symbicort 160-4.5 mcg/actuation HFA aerosol inhaler 2 puff INHALATION BID@ RF: 0 lisinopril 40 mg tablet 40 mg PO DAILY@07 RF: 0 alendronate [Fosamax] 70 mg tablet 70 mg PO Q7D RF: 0 metoprolol tartrate 100 mg tablet 100 mg PO BID@ RF: 0 calcium carbonate-vitamin D3 [Oysco 500/D] 500 mg(1,250mg) -200 unit tablet 1 tab PO DAILY@07 RF: 0 famotidine [Pepcid] 20 mg tablet 20 mg PO DAILY@07 RF: 0 amlodipine 10 mg tablet 5 mg PO DAILY@07 RF: 0 glimepiride 2 mg Tablet 2 mg PO DAILY@07 RF: 0 budesonide 0.5 mg/2 mL Suspension For Nebulization 0.5 mg INHALATION Q6H PRN (Reason: Shortness Of Breath) RF: 0 levalbuterol HCl 1.25 mg/0.5 mL Solution For Nebulization 2.5 mg INHALATION Q4H PRN (Reason: Shortness Of Breath) RF: 0 potassium chloride 20 mEq Tablet Extended Release 20 meq PO DAILY@07 RF: 0 furosemide 40 mg tablet 40 mg PO DAILY@07 RF: 0 Spiriva with HandiHaler 18 mcg capsule, w/inhalation device 1 cap INHALATION DAILY@07 Qty: 30 RF: 0 Discharge Orders: Discharge Order (Routine); Ordered 08/06/20 Ordered By: Mahesh Gonzalez Referrals: Jina Hooper, [employer]-[facility] [Primary Care Provider] - Discharge Diet: Cardiac Discharge Activity: Resume usual activity Activity Restrictions/Additional Instructions: -Please drink plenty of electrolyte balance fluids -Take doxycycline, prednisone, and inhalers as prescribed -If you have worsening shortness of breath, fevers come back to emergency room -Continue to socially isolate, for at least 2 weeks, hand wash, face mask Discharge Attestations Time Spent in Discharge Care*: greater than 30 min Quality Metrics Clinical Quality Measures During this hospital stay, did patient experience: None Coding Level of Care Code Acute [employer] M[facility] for [facility] Diagnoses Acute respiratory failure with hypoxia J96.01 Pneumonia due to COVID-19 virus U07.1; J12.89 Secondary bacterial pneumonia J15.9 Heart failure with preserved ejection fraction I50.30 Atrial fibrillation I48.20 Atrial fibrillation type: unspecified chronic LBBB (left bundle branch block) I44.7 COPD (chronic obstructive pulmonary disease) J44.9 ASHD (arteriosclerotic heart disease) I25.10 HTN (hypertension) I10 Hypertension type: essential hypertension MOSHE (obstructive sleep apnea) G47.33 Hyperlipidemia E78.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
[2020-08-06 12:24] LABS: Glucose Point of Care 171 mg/dL (70-110)
[2020-08-06] MEDS: cefTRIAXone 1,000 MG in sodium chloride 0.9% (plus) 50 ML 100 MG IV (12:33)
[2020-08-06] MEDS: remdesivir 100 MG in sodium chloride 0.9% (100 ml) 100 ML IV (15:09)
--- NOTE | 2020-08-07 11:49 | PC.NURSE ---
Elsie Sultana , pt's called/[phone]. About his discharge medications. She complained that she did not understand and requested someone to go over them with her. We started off with the continued meds She stated he did not take Symbycort or Spiriva. Corrected those on the home list as requested. Went over the new prescriptions she said that doxycycline messed with blood thinners like warfin, attempts to explain the purpose of the doxycycline, she wasn't having any part of it. He bleeds like a stuck hog already. We have to keep medications o hand for his bleeding already Suggested she discusse that with their family physician. She replied ok. Went over the rest of the list. She stated she was satisfied.
== END 2020-08-06 16:35 | disposition home or self-care (01) | DRG 177 ==
LOC: ER 16:14 → MEDSURG 21:03
PROVIDERS: Admitting Provider Family Medicine; Emergency Provider Family Medicine; PCP Nurse Practitioner Family; Visit Provider Family Medicine
DX: U07.1 COVID-19 (principal); J12.82 Pneumonia due to coronavirus disease 2019; J15.9 Unspecified bacterial pneumonia; J96.01 Acute respiratory failure with hypoxia; J44.0 Chronic obstructive pulmonary disease with (acute) lower respiratory infection; I13.0 Hypertensive heart and chronic kidney disease with heart failure and stage 1 through stage 4 chronic kidney disease, or unspecified chronic kidney disease; J44.1 Chronic obstructive pulmonary disease with (acute) exacerbation; I50.30 Unspecified diastolic (congestive) heart failure; I44.7 Left bundle-branch block, unspecified; I25.10 Atherosclerotic heart disease of native coronary artery without angina pectoris; E78.5 Hyperlipidemia, unspecified; G47.33 Obstructive sleep apnea (adult) (pediatric); Z99.81 Dependence on supplemental oxygen; I48.0 Paroxysmal atrial fibrillation; Z79.01 Long term (current) use of anticoagulants; Z95.5 Presence of coronary angioplasty implant and graft; N18.9 Chronic kidney disease, unspecified; E13.22 Other specified diabetes mellitus with diabetic chronic kidney disease; K21.9 Gastro-esophageal reflux disease without esophagitis; G25.81 Restless legs syndrome; Z87.891 Personal history of nicotine dependence
CPT/HCPCS: 12345; 36415; 36416; 36430; 36600; 71045; 71250; 80051; 80053; 80061; 82330; 82550; 82803; 82805; 82962; 83036; 83605; 83735; 83880; 84100; 84145; 84443; 84484; 85025; 85378; 86140; 86900; 86927; 87426; 93005; 94640; 96372; 99282; J0456; J0696; J1100; J1815; J1956; J3535; J7030; J7050; P9017

== ENCOUNTER 2020-10-15 19:09 | Inpatient (IN) | payer OTHER, MEDICARE, SELFPAY ==
[2020-10-15] VITALS (8 sets, daily range): BP systolic 144–175; BP diastolic 74–82; PULSE 89–108; RESP 20–27; TEMP 37.6; O2SAT 96–98; BMI 22.1
--- NOTE | 2020-10-15 19:20 | XRR_ITS ---
PROCEDURE INFORMATION: Exam: XR Chest Exam date and time: 10/15/2020 7:50 PM Age: 75 years old Clinical indication: Fever and shortness of breath; Patient HX: C/O fever and SOB TECHNIQUE: Imaging protocol: XR of the chest Views: 1 view. COMPARISON: CR XR chest 1V portable [id number] 08/06/2020 6:04 AM FINDINGS: Lungs: Changes of COPD with hyperinflation, scarring and a fine reticular opacity in the lung bases, similar to the prior exam. No focal consolidation. Pleural spaces: Unremarkable. No pleural effusion. No pneumothorax. Heart/Mediastinum: The cardiac shadow is normal in size. Bones/joints: No acute abnormality. XR/XR chest 1V portable [id number] IMPRESSION: 1. No acute findings. 2. Chronic lung findings, similar to the prior exam.
--- NOTE | 2020-10-15 19:20 | ECG_ITS ---
[facility] Test Date: 2020-10-15 Pat Name: Jonathan Sultana Department: Room: Gender: Male [employer]: : [id number] Requested By: Milka Perdomo Order Number: [id number] Alexey MD: Lauren Spangler M.D. Measurements Intervals [place] Rate: 98 P: 66 OR: 190 QRS: 45 QRSD: 143 T: 103 QT: 365 QTc: 466 Interpretive Statements SINUS RHYTHM LEFT BUNDLE BRANCH BLOCK [120+ ms QRS DURATION, 80+ ms Q/S IN V1/V2, 85+ ms R IN I/aVL/V5/V6] Compared to ECG 08/03/2020 05:46:49 Atrial fibrillation no longer present Aberrant conduction of supraventricular beat(s) no longer present Ventricular premature complex(es) no longer present Electronically Signed On 10-16-2020 13:00:27 CDT by Lauren Spangler M.D. [id number]
[2020-10-15 19:32] LABS: Basophils # 0.1 10^3/uL (0.0-0.1); Basophils % 0.5 %; Eosinophils # 0.1 10^3/uL (0.0-0.8); Eosinophils % 0.3 %; Hematocrit 37.2 % (42.0-52.0); Lymphocytes # 1.8 10^3/uL (0.8-4.8); Lymphocytes % 10.5 %; Mean Corpuscular HGB Conc 32.3 g/dL (30.0-36.0); Mean Corpuscular Hemoglobin 27.7 pg (28.0-34.0); Mean Corpuscular Volume 85.9 fL (80-94); Mean Platelet Volume 11.8 fL (7.4-10.4); Monocytes # 1.3 10^3/uL (0.2-0.9); Monocytes % 7.5 %; Neutrophils # 13.62 10^3/uL (1.8-7.7); Neutrophils % 80.5 %; Nucleated Red Blood Cells % 0 %; Platelet Count 183 10^3/cmm (130-400); Red Blood Count 4.33 10^6/uL (4.1-5.3); Red Cell Distribution Width 15.4 % (12.1-15.1); White Blood Count 16.9 10^3/uL (4.0-10.0)
--- NOTE | 2020-10-15 19:33 | PC.NURSE ---
EKG taken and given to Dr. Perdomo
[2020-10-15 19:38] LABS: INR 1.34 (0.8-1.2)
[2020-10-15] MEDS: acetaminophen 500 mg Tablet 1000 MG PO (19:39)
[2020-10-15] MEDS: sodium chloride 0.9% 1,000 ML 999 ML IV (19:42)
[2020-10-15] MEDS: ipratropium-albuterol 3 mL Neb INHALATION (19:44)
[2020-10-15 19:55] LABS: ABG PCO2 38.2 mmHg (35-45); ABG PH Result 7.46 (7.35-7.45); Arterial Blood Gas Hematocrit 37.2 % (42-52); Base Excess ABG 3.4 mmol/L (-2.0-2.0); Blood Gas Allen Test Pos; Blood Gas Sample Site Radial, left; Blood Gas Sample Type Arterial; Carboxyhemoglobin 1.1 %THgb (0.4-20.1); HCO3 ABG 27.4 mmol/L (22-26); HGB O2 Sat 95.1 % (95-100); Oxygen Device NC; PO2 ABG 79.6 mmHg (80.0-100.0); Total Hemoglobin 12.1 g/dL (14-18)
--- NOTE | 2020-10-15 19:59 | W.ED.SOB ---
HPI - SOB/Dyspnea General: Chief Complaint: Shortness of Breath/Dyspnea Stated Complaint: SOB Time Seen by Provider: 10/15/20 19:11 Source: patient and EMS Mode of arrival: EMS Limitations: no limitations History of Present Illness: HPI Narrative: 75-year-old male history of COPD states he has had a fever along with shortness of breath over the last day. His temperature here is 99.7. States his dyspnea is much worse with exertion. He does wear 4 L at baseline at home for COPD and is currently 95% here on his 4 L. He did have Covid in May. Denies any known sick contacts. Denies any chest pain. Associated symptoms: Reports fever(s); Deny abdominal pain, chest pain, nausea or vomiting Review of Systems Const: Reports: fever(s) Eyes: Denies: blurry vision or eye discomfort ENMT: Denies: throat pain or dental pain Card: Denies: chest pain Resp: Reports: dyspnea and non-productive cough GI: Denies: abdominal pain, nausea, vomiting or diarrhea : Denies: dysuria Musc: Denies: neck pain or back pain Skin/Breast: Denies: rash Neuro: Denies: headache(s) Psych: Denies: depression Frank/Lymph: Denies: easy bruising All/Imm: Denies: urticaria PFSH ED PFSH: Medical History Anticoagulation adequate Eliquis ASHD (arteriosclerotic heart disease) Atrial fibrillation Carotid stenosis, bilateral CHF (congestive heart failure) CKD (chronic kidney disease) COPD (chronic obstructive pulmonary disease) Diabetes 1.5, managed as type 2 Fracture of second metatarsal bone GERD (gastroesophageal reflux disease) History of nonmelanoma skin cancer HTN (hypertension) Hyperlipidemia LBBB (left bundle branch block) MOSHE (obstructive sleep apnea) RLS (restless legs syndrome) Surgical History S/P carotid endarterectomy S/P carpal tunnel release S/P sinus surgery Family History Mother , AGE 64 Diabetes Cancer Father , AGE 62 CAD (coronary artery disease) Social History (Reviewed 09/21/20 @ 19:13 by Merle Rondon Smoking and tobacco status: former smoker Quit status (tobacco): has quit using tobacco Year quit tobacco: 1999 [id number] Second hand smoke exposure: No Smoking risk assessment/counseling performed?: Yes Alcohol intake: never Lives independently: Yes Household members: spouse Housing: House Marital status: service: Yes branch: [employer] Current occupational status: retired Pets and animals: No History of recent travel: No Current gender identity: Male Physical Exam Const: COMMON NORMALS: no acute distress, patient oriented x3 and healthy appearing HENMT: COMMON NORMALS: normocephalic and atraumatic HEAD & SCALP: normocephalic and atraumatic Eye: COMMON NORMALS: Equal, round and reactive pupils present and EOMs intact bilaterally PUPIL: Yes Equal, round and reactive pupils present Neck/C-Spine: COMMON NORMALS: full ROM and supple Chest: COMMONS NORMALS: normal inspection of the chest and normal palpation of entire chest wall Resp: COMMON NORMALS: normal respiratory effort, No retractions, No use of accessory muscles and clear to auscultation bilaterally AUSCULTATION: clear to auscultation bilaterally and wheezes Cardio: COMMON NORMALS: regular rate, regular rhythm and No murmurs present (Cardio) RATE: regular rate RHYTHM: regular rhythm GI: COMMON NORMALS: Normal to inspection, nondistended, normoactive bowel sounds present, Soft to palpation, non-tender and no masses PALPATION: Yes Soft to palpation Extremity: COMMON NORMALS: normal to inspection and full ROM Neuro: COMMON NORMALS: patient oriented x3, moves all extremities and no focal motor deficits Psych: COMMON NORMALS: mental status grossly normal, Normal thought process present and cooperative THOUGHT PROCESS: Normal thought process present Skin: COMMON NORMALS: no rashes or lesions noted and no wounds GENERAL SKIN EXAM: no rashes or lesions noted Course Vital Signs: Vital signs: Vital Signs Temperature 99.7 F H 10/15/20 19:10 Pulse Rate 108 H 10/15/20 21:15 Respiratory Rate 20 H 10/15/20 21:15 Blood Pressure 166/82 10/15/20 21:15 Pulse Oximetry 97 10/15/20 21:15 MDM - SOB/Dyspnea MDM Narrative: Medical decision making narrative: Patient presents here with pneumonia likely causing his fever and dyspnea. Pneumonia is not severe but he is having exertional dyspnea I spoke to the hospitalist and will admit. Patient given IV antibiotics here. Lab Data: Labs: Lab Results 10/15/20 10/15/20 10/15/20 Range/Units 18:00 18:00 18:00 WBC 16.9 H (4.0-10.0) 10^3/ uL RBC 4.33 (4.1-5.3) 10^6/u L Hgb 12.0 (11.7-16.6) g/dL Hct 37.2 L (42.0-52.0) % MCV 85.9 (80-94) fL MCH 27.7 L (28.0-34.0) pg MCHC 32.3 (30.0-36.0) g/dL RDW 15.4 H (12.1-15.1) % Plt Count 183 (130-400) 10^3/c mm MPV 11.8 H (7.4-10.4) fL Neut % (Auto) 80.5 % Lymph % (Auto) 10.5 % [place] % (Auto) 7.5 % Eos % (Auto) 0.3 % Baso % (Auto) 0.5 % Neut # (Auto) 13.62 H (1.8-7.7) 10^3/u L Lymph # (Auto) 1.8 (0.8-4.8) 10^3/u L [place] # (Auto) 1.3 H (0.2-0.9) 10^3/u L Eos # (Auto) 0.1 (0.0-0.8) 10^3/u L Baso # (Auto) 0.1 (0.0-0.1) 10^3/u L Nucleated RBC % (a uto) 0 % Nucleated RBCs # 0.0 /100WBC PT 17.00 H (12.1-14.9) SECO NDS INR 1.34 H (0.8-1.2) Specimen Type Sample Site ABG pH (7.35-7.45) ABG pCO2 (35-45) mmHg ABG pO2 (80.0-100.0) mmH g ABG HCO3 (22-26) mmol/L ABG Base Excess (-2.0-2.0) mmol/ L Mariano Test Hematocrit (42-52) % Hgb O2 Saturation (95-100) % Carboxyhemoglobin (0.4-20.1) %THgb Methemoglobin (0.4-1.5) % Total Hemoglobin (14-18) g/dL O2 Delivery Device O2 Liters/Min % [employer] Advisor ID Sodium 133 L (136-145) mmol/L Potassium 3.8 (3.5-5.1) mmol/L Chloride 94 L (98-107) mmol/L Carbon Dioxide 25 (22-29) mmol/L Anion Gap 17.8 (5-19) BUN 17 (8-23) mg/dL Creatinine 0.9 (0.7-1.2) mg/dL GFR Calculation Not Reportable Glucose 199 H (65-115) mg/dL Calculated Osmolal ity 283 L (285-295) mOsm/k g Lactic Acid (0.5-2.2) mmol/L Calcium 9.2 (8.5-10.5) mg/dL Total Bilirubin 0.5 (0.15-1.2) mg/dL AST 39 (0-40) U/L ALT 39 (0-41) U/L Alkaline Phosphata se 135 H (40-130) IU/L NT-Pro-B Natriuret Pep 1102 H (0-450) pg/mL Total Protein 6.9 (6.6-8.7) g/dL Albumin 3.6 (3.5-5.2) g/dL Globulin 3.3 (1.3-4.6) g/dL Influenza Type A A g (Negative) Influenza Type B A g (Negative) 10/15/20 10/15/20 10/15/20 Range/Units 19:34 19:41 19:45 WBC (4.0-10.0) 10^3/ uL RBC (4.1-5.3) 10^6/u L Hgb (11.7-16.6) g/dL Hct (42.0-52.0) % MCV (80-94) fL MCH (28.0-34.0) pg MCHC (30.0-36.0) g/dL RDW (12.1-15.1) % Plt Count (130-400) 10^3/c mm MPV (7.4-10.4) fL Neut % (Auto) % Lymph % (Auto) % [place] % (Auto) % Eos % (Auto) % Baso % (Auto) % Neut # (Auto) (1.8-7.7) 10^3/u L Lymph # (Auto) (0.8-4.8) 10^3/u L [place] # (Auto) (0.2-0.9) 10^3/u L Eos # (Auto) (0.0-0.8) 10^3/u L Baso # (Auto) (0.0-0.1) 10^3/u L Nucleated RBC % (a uto) % Nucleated RBCs # /100WBC PT (12.1-14.9) SECO NDS INR (0.8-1.2) Specimen Type Arterial Sample Site Radial, left ABG pH 7.46 H (7.35-7.45) ABG pCO2 38.2 (35-45) mmHg ABG pO2 79.6 L (80.0-100.0) mmH g ABG HCO3 27.4 H (22-26) mmol/L ABG Base Excess 3.4 H (-2.0-2.0) mmol/ L Mariano Test Pos Hematocrit 37.2 L (42-52) % Hgb O2 Saturation 95.1 (95-100) % Carboxyhemoglobin 1.1 (0.4-20.1) %THgb Methemoglobin 1.0 (0.4-1.5) % Total Hemoglobin 12.1 L (14-18) g/dL O2 Delivery Device Nc O2 Liters/Min 4.0 % [employer] Advisor ID [email or web address] Sodium (136-145) mmol/L Potassium (3.5-5.1) mmol/L Chloride (98-107) mmol/L Carbon Dioxide (22-29) mmol/L Anion Gap (5-19) BUN (8-23) mg/dL Creatinine (0.7-1.2) mg/dL GFR Calculation Glucose (65-115) mg/dL Calculated Osmolal ity (285-295) mOsm/k g Lactic Acid 1.8 (0.5-2.2) mmol/L Calcium (8.5-10.5) mg/dL Total Bilirubin (0.15-1.2) mg/dL AST (0-40) U/L ALT (0-41) U/L Alkaline Phosphata se (40-130) IU/L NT-Pro-B Natriuret Pep (0-450) pg/mL Total Protein (6.6-8.7) g/dL Albumin (3.5-5.2) g/dL Globulin (1.3-4.6) g/dL Influenza Type A A g Negative (Negative) Influenza Type B A g Negative (Negative) Imaging Data^: CT Chest: Radiologist's impression: [address] [address] [address] Scan Report Signed Patient: Jonathan Sultana Unit #: [id number] : 1945 Age/Sex: 75 / M ADM Date: 10/15/20 Loc: ER Room/Bed: Attending Dr: Ordering Provider/Ordering MD: Milka Perdomo MD Date of Service: 10/15/20 Procedure(s): CT chest abd pel w con* Accession Number(s): [id number] Report Number: [id number] PROCEDURE INFORMATION: Exam: CT Chest With Contrast; Diagnostic Exam date and time: 10/15/2020 9:17 PM Age: 75 years old Clinical indication: Fever and shortness of breath; Patient HX: C/O SOB w fever TECHNIQUE: Imaging protocol: Diagnostic computed tomography of the chest with contrast. Radiation optimization: All CT scans at this facility use at least one of these dose optimization techniques: automated exposure control; mA and/or kV adjustment per patient size (includes targeted exams where dose is matched to clinical indication); or iterative reconstruction. Contrast material: OMNI 300; Contrast volume: 95 ml; Contrast route: INTRAVENOUS (IV); COMPARISON: CT chest wo con [id number] 08/03/2020 9:17 AM RADIATION DOSE METRICS: Total DLP (mGy-cm): 1178.16 FINDINGS: Lungs: Scarring in both lung apices. Severe emphysema. Interstitial thickening in the lower lobes. This has increased compared to the prior exam. Pleural spaces: Unremarkable. No pneumothorax. No pleural effusion. Heart: Unremarkable. No cardiomegaly. No pericardial effusion. Aorta: Unremarkable. No aortic aneurysm. Lymph nodes: A few mildly prominent mediastinal lymph nodes likely secondary to chronic lung disease or infection. Bones/joints: The bones appear demineralized. Soft tissues: Unremarkable. Other findings: Scattered vascular calcifications. IMPRESSION: Interstitial thickening in the lower lobes has increased compared to the prior exam compatible with pneumonia in the proper clinical setting. Background severe emphysema. PROCEDURE INFORMATION: Exam: CT Abdomen And Pelvis With Contrast Exam date and time: 10/15/2020 9:17 PM Age: 75 years old Clinical indication: Fever and shortness of breath; Patient HX: C/O SOB w fever TECHNIQUE: Imaging protocol: Computed tomography of the abdomen and pelvis with contrast. Radiation optimization: All CT scans at this facility use at least one of these dose optimization techniques: automated exposure control; mA and/or kV adjustment per patient size (includes targeted exams where dose is matched to clinical indication); or iterative reconstruction. Contrast material: OMNI 300; Contrast volume: 95 ml; Contrast route: INTRAVENOUS (IV); COMPARISON: CT chest wo con [id number] 08/03/2020 9:17 AM RADIATION DOSE METRICS: Total DLP (mGy-cm): 1178.16 FINDINGS: Lungs: The visualized lung bases are clear. Liver: Normal size and density. No focal mass. Gallbladder and bile ducts: Small calcified gallstones. No signs of acute cholecystitis. Pancreas: No evidence of mass. No ductal dilation. Spleen: No splenomegaly or mass. Adrenal glands: Normal. Kidneys and ureters: Simple appearing left renal cysts do not require further imaging. Small vascular calcifications in the right kidney. No stones or hydronephrosis. Mild bilateral perinephric edema likely reflecting some degree of medical renal disease. Stomach and bowel: A large amount of formed stool throughout the colon suggesting constipation. No signs of obstruction. No focal bowel wall thickening or mass. No significant diverticula. Appendix: Normal appendix. Intraperitoneal space: No free air. No free fluid or evidence of abscess. Vasculature: Scattered vascular calcifications. Lymph nodes: No lymphadenopathy. Urinary bladder: Minimal bladder wall thickening. Reproductive: The prostate gland is enlarged at 5 cm and contains nonspecific calcifications. Bones/joints: [id number] degenerative changes of the spine. Soft tissues: Within normal limits. CT/CT chest abd pel w con* IMPRESSION: 1. Cholelithiasis without evidence of acute cholecystitis. 2. Constipation. 3. Nonspecific minimal bladder wall thickening. EKG Data^: EKG 1: Attestation: I personally reviewed and interpreted this EKG as follows: EKG Interpretation Date: 10/15/20 EKG interpretation time: 19:19 Interpretation: nsr hr [address] or t wave abnormalities qrs 143 qtc 420 Discharge Plan Discharge Patient Disposition: Placed in Observation Clinical Impression: Community acquired pneumonia Qualifiers: Laterality: left Lung location: lower lobe of lung Qualified Code(s): J18.9 - Pneumonia, unspecified organism Coding Level of Care Code ED [employer] Superintendent for Chg Fwd Exam Comprehensive
[2020-10-15 20:15] LABS: Alanine Aminotransferase 39 U/L (0-41); Albumin Level 3.6 g/dL (3.5-5.2); Alkaline Phosphatase 135 IU/L (40-130); Anion Gap 17.8 (5-19); Aspartate Amino Transferase 39 U/L (0-40); Blood Urea Nitrogen 17 mg/dL (8-23); Calcium 9.2 mg/dL (8.5-10.5); Carbon Dioxide 25 mmol/L (22-29); Chloride 94 mmol/L (98-107); Creatinine Clr Calc Pharmacy 74.2569; Globulin 3.3 g/dL (1.3-4.6); Glucose 199 mg/dL (65-115); NT Pro B Type Natriuretic Pept 1102 pg/mL (0-450); Osmolality Calculated 283 mOsm/kg (285-295); Potassium 3.8 mmol/L (3.5-5.1); Sodium 133 mmol/L (136-145); Total Bilirubin 0.5 mg/dL (0.15-1.2); Total Protein 6.9 g/dL (6.6-8.7)
[2020-10-15 20:31] LABS: Lactic Sepsis W/Reflex 1.8 mmol/L (0.5-2.2)
[2020-10-15 20:35] LABS: Influenza A by IFA Negative (Negative); Influenza B by IFA Negative (Negative)
--- NOTE | 2020-10-15 20:41 | CTR_ITS ---
PROCEDURE INFORMATION: Exam: CT Chest With Contrast; Diagnostic Exam date and time: 10/15/2020 9:17 PM Age: 75 years old Clinical indication: Fever and shortness of breath; Patient HX: C/O SOB w fever TECHNIQUE: Imaging protocol: Diagnostic computed tomography of the chest with contrast. Radiation optimization: All CT scans at this facility use at least one of these dose optimization techniques: automated exposure control; mA and/or kV adjustment per patient size (includes targeted exams where dose is matched to clinical indication); or iterative reconstruction. Contrast material: OMNI 300; Contrast volume: 95 ml; Contrast route: INTRAVENOUS (IV); COMPARISON: CT chest [facility] [id number] 08/03/2020 9:17 AM RADIATION DOSE METRICS: Total DLP (mGy-cm): 1178.16 FINDINGS: Lungs: Scarring in both lung apices. Severe emphysema. Interstitial thickening in the lower lobes. This has increased compared to the prior exam. Pleural spaces: Unremarkable. No pneumothorax. No pleural effusion. Heart: Unremarkable. No cardiomegaly. No pericardial effusion. Aorta: Unremarkable. No aortic aneurysm. Lymph nodes: A few mildly prominent mediastinal lymph nodes likely secondary to chronic lung disease or infection. Bones/joints: The bones appear demineralized. Soft tissues: Unremarkable. Other findings: Scattered vascular calcifications. IMPRESSION: Interstitial thickening in the lower lobes has increased compared to the prior exam compatible with pneumonia in the proper clinical setting. Background severe emphysema. PROCEDURE INFORMATION: Exam: CT Abdomen And Pelvis With Contrast Exam date and time: 10/15/2020 9:17 PM Age: 75 years old Clinical indication: Fever and shortness of breath; Patient HX: C/O SOB w fever TECHNIQUE: Imaging protocol: Computed tomography of the abdomen and pelvis with contrast. Radiation optimization: All CT scans at this facility use at least one of these dose optimization techniques: automated exposure control; mA and/or kV adjustment per patient size (includes targeted exams where dose is matched to clinical indication); or iterative reconstruction. Contrast material: OMNI 300; Contrast volume: 95 ml; Contrast route: INTRAVENOUS (IV); COMPARISON: CT chest [facility] [id number] 08/03/2020 9:17 AM RADIATION DOSE METRICS: Total DLP (mGy-cm): 1178.16 FINDINGS: Lungs: The visualized lung bases are clear. Liver: Normal size and density. No focal mass. Gallbladder and bile ducts: Small calcified gallstones. No signs of acute cholecystitis. Pancreas: No evidence of mass. No ductal dilation. Spleen: No splenomegaly or mass. Adrenal glands: Normal. Kidneys and ureters: Simple appearing left renal cysts do not require further imaging. Small vascular calcifications in the right kidney. No stones or hydronephrosis. Mild bilateral perinephric edema likely reflecting some degree of medical renal disease. Stomach and bowel: A large amount of formed stool throughout the colon suggesting constipation. No signs of obstruction. No focal bowel wall thickening or mass. No significant diverticula. Appendix: Normal appendix. Intraperitoneal space: No free air. No free fluid or evidence of abscess. Vasculature: Scattered vascular calcifications. Lymph nodes: No lymphadenopathy. Urinary bladder: Minimal bladder wall thickening. Reproductive: The prostate gland is enlarged at 5 cm and contains nonspecific calcifications. Bones/joints: [id number] degenerative changes of the spine. Soft tissues: Within normal limits. CT/CT chest abd pel w con* IMPRESSION: 1. Cholelithiasis without evidence of acute cholecystitis. 2. Constipation. 3. Nonspecific minimal bladder wall thickening. COMMENTS: Consistent with the [employer]'s Incidental Findings Committee white paper (J Am Parisa Radiol 2018): Any incidental renal lesion less than 1 cm or classified as too small to characterize, or any incidental cystic renal lesion characterized as simple-appearing, is likely benign. No follow-up imaging is recommended for these lesions per consensus recommendations based on imaging criteria. Radiation Dose CTDIVOL = (mGy): DLP = 1178.16~1178.16 (mGy-cm)
[2020-10-15] MEDS: iohexol 300 mg/mL 100 mL Btl IV (21:39)
[2020-10-15] MEDS: cefTRIAXone 1,000 MG in sodium chloride 0.9% (plus) 50 ML 100 MG IV (22:27)
[2020-10-15] MEDS: azithromycin 500 MG in sodium chloride 0.9% 250 ML 250 MG IV (22:48)
--- NOTE | 2020-10-15 23:46 | PC.NURSE ---
Report called to Radha ALEX on med-surg at [id number]
[2020-10-16] VITALS (15 sets, daily range): BP systolic 137–176; BP diastolic 72–80; PULSE 69–123; RESP 17–28; TEMP 36.4–37.7; O2SAT 92–99
--- NOTE | 2020-10-16 05:18 | PM.HP ---
Providers/Chief Complaint Admitting Physician: Lia Dan MD Primary Care Provider: Jina Hooper PUBLIC AID ELIGIBILITY ASSISTANT-C Chief Complaint: SOB History of Present Illness Jonathan Sultana is a 75 year old male who presented to the emergency room with several days of not feeling well. He states that his breathing is just not been right for couple of days. He cannot get in is good of a breath as he usually can. No significant increase in cough per se. He is more short of breath with exertion than at rest. Today he noted that he had a fever up to 100.9. His blood pressure was also high as was his heart rate. He came to the emergency room for these reasons. Seen pulmonology within the past month. He has known COPD and is chronically on 4 L of oxygen by nasal cannula. In addition to the COPD he has been followed for right upper lobe nodule for some time. It has never been deemed to be malignant that I can ascertain however. Patient was actually due to get pulmonary function studies on Friday and a PET scan next Friday. He denies any sick contacts. No blood in his sputum. Work-up in the emergency room revealed an elevated white count. He was afebrile here but continued to feel quite short of breath. His abdomen and pelvis was done in the emergency room. He had some interstitial thickening in the lower lobes of the lungs that was higher than previously comparable study however that study was done during an admission in which she was ultimately found to have Covid. He was continued in the hospital for some time after that. Abdominal study was unremarkable. He did not have angiography. He was given some breathing treatments and antibiotics and was admitted for further evaluation and treatment. Not thus far required increased oxygen that gets quite short of breath with minimal exertion. Review of Systems Const: Reports: fever(s), chills, fatigue and malaise; Denies: change in appetite Eyes: Denies: change in vision ENMT: Denies: throat pain, dry mouth or nasal congestion Card: Reports: dyspnea on exertion; Denies: chest pain, palpitations or edema Resp: Reports: dyspnea, productive cough, non-productive cough and wheezing; Denies: pain on inspiration or hemoptysis GI: Denies: abdominal pain, nausea, vomiting, diarrhea or constipation : Denies: difficulty urinating Skin/Breast: Denies: rash or pruritus Neuro: Denies: headache(s) or dizziness Psych: Denies: anxiety or depression Frank/Lymph: Denies: easy bruising or easy bleeding Medications/Allergies Home Medications Medication Instructions Recorded Confirmed Last Taken Type alendronate 70 mg tablet 70 mg PO Q7D tab 08/23/19 10/16/20 07/30/20 History apixaban 5 mg tablet 5 mg PO BID@08/23/19 09/18/20 08/02/20 History atorvastatin 20 mg tablet 20 mg PO DAILY@08/23/19 10/16/20 10/15/20 History lisinopril 40 mg tablet 40 mg PO DAILY@08/23/19 09/18/20 08/02/20 History roflumilast 500 mcg tablet 500 mcg PO DAILY@08/23/19 09/18/20 08/02/20 History famotidine 20 mg tablet 20 mg PO DAILY@12/09/19 09/18/20 08/02/20 History calcium carbonate 500 mg (1,250 1 tab PO DAILY@05/31/20 09/18/20 08/02/20 History mg)-vitamin D3 200 unit tablet metoprolol tartrate 100 mg tablet 100 mg PO BID@05/31/20 09/18/20 08/02/20 History amlodipine 5 mg PO DAILY@08/02/20 10/16/20 10/15/20 History budesonide 0.5 mg INHALATION Q6H PRN 08/02/20 09/18/20 08/02/20 History furosemide 40 mg PO DAILY@08/02/20 09/18/20 08/02/20 History glimepiride 2 mg PO DAILY@08/02/20 09/18/20 08/02/20 History levalbuterol HCl 2.5 mg INHALATION Q4H PRN 08/02/20 09/18/20 08/02/20 History potassium chloride 20 meq PO DAILY@08/02/20 10/16/20 10/15/20 08:00 History albuterol sulfate [Ventolin HFA] 1 puff INHALATION Q4H.RESPIRATORY 08/06/20 09/18/20 Unknown Rx PRN #18 g arformoterol 15 mcg/2 mL solution 2 ml INHALATION BID 09/18/20 09/18/20 Unknown History for nebulization Trelegy Ellipta 100 mcg-62.5 1 inh INHALATION DAILY #60 ea NS 09/20/20 09/20/20 Unknown Rx mcg-25 mcg powder for inhalation Daliresp 500 mcg PO DAILY 10/16/20 10/16/20 10/15/20 08:00 History Eliquis 5 mg PO BID 10/16/20 10/16/20 10/15/20 18:00 History Trelegy Ellipta 100 mcg INHALATION DAILY 10/16/20 10/16/20 10/15/20 08:00 History Bushra-C 1,000 units PO BID 10/16/20 10/16/20 10/15/20 18:00 History Xopenex HFA 45 mcg INHALATION QID 10/16/20 10/16/20 10/15/20 18:00 History calcium carbonate-vitamin D3 500 tab PO DAILY 10/16/20 10/16/20 10/15/20 08:00 History [Oyster Shell Calcium-Vit D3] cholecalciferol (vitamin D3) 75 mcg PO DAILY 10/16/20 10/16/20 10/15/20 08:00 History famotidine 20 mg PO DAILY 10/16/20 10/16/20 10/15/20 08:00 History furosemide 40 mg PO DAILY 10/16/20 10/16/20 10/15/20 08:00 History glimepiride 1 mg PO DAILY 10/16/20 10/16/20 10/15/20 08:00 History lisinopril 40 mg PO DAILY 10/16/20 10/16/20 10/15/20 08:00 History metoprolol tartrate 100 mg PO BID 10/16/20 10/16/20 10/15/20 08:00 History tamsulosin 0.4 mg PO DAILY 10/16/20 10/16/20 10/15/20 08:00 History zinc 50 mg PO DAILY 10/16/20 10/16/20 10/15/20 08:00 History Allergies Allergy/AdvReac Type Severity Reaction Status Date / Time simvastatin AdvReac Intermediate ADR-Cramping Verified 09/18/20 16:04 of the Muscles PFSH Acute PFSH: Medical History (Updated 10/16/20 @ 08:58 by Lia Dan MD) ASHD (arteriosclerotic heart disease) Atrial fibrillation BPH (benign prostatic hyperplasia) Carotid stenosis, bilateral CHF (congestive heart failure) CKD (chronic kidney disease) COPD (chronic obstructive pulmonary disease) Diabetes 1.5, managed as type 2 Fracture of second metatarsal bone GERD (gastroesophageal reflux disease) History of 2019 novel coronavirus disease (COVID-19) (~07/2020) History of echocardiogram (~11/2019) EF 50-55%, no valvular abnormalities, normal pulmonary pressures History of nonmelanoma skin cancer HTN (hypertension) Hyperlipidemia LBBB (left bundle branch block) MOSHE (obstructive sleep apnea) Bipap 09/03 Osteoporosis alendronate RLS (restless legs syndrome) Surgical History S/P carotid endarterectomy S/P carpal tunnel release S/P sinus surgery Family History Mother , AGE 64 Diabetes Cancer Father , AGE 62 CAD (coronary artery disease) Social History (Updated 10/16/20 @ 08:49 by Lia Dan MD) Smoking and tobacco status: former smoker Quit status (tobacco): has quit using tobacco Year quit tobacco: 1999 [id number] Second hand smoke exposure: No Alcohol intake: never Lives independently: Yes Household members: spouse Housing: House Marital status: service: Yes branch: [employer] Current occupational status: retired Pets and animals: No History of recent travel: No Current gender identity: Male Vitals/I&O/Wt Last Vital Signs Temp 99.9 F H 10/16/20 04:00 Pulse 105 H 10/16/20 04:00 Resp 20 H 10/16/20 04:00 BP 151/74 10/16/20 04:00 Pulse Ox 96 10/16/20 04:00 10/15/20 10/15/20 10/16/20 14:59 22:59 06:59 Intake Total 1050 / 1050 350 / 1400 Output Total 400 / 400 Balance 1050 / 1050 -50 / 1000 Weight last 48 hrs Weight 72.121 kg Data : 10/15/20 18:00 10/15/20 18:00 Micro: Microbiology 10/15/20 19:35 Blood Culture - Preliminary Blood SPECIMEN COLLECTED 10/15/20 19:36 Blood Culture - Preliminary Blood SPECIMEN COLLECTED A&P Assessment and plan (1) Community acquired pneumonia: Status: Acute Qualifiers: Laterality: left Lung location: lower lobe of lung Qualified Code(s): J18.9 - Pneumonia, unspecified organism (2) Heart failure with preserved ejection fraction: Status: Chronic Qualifiers: Heart failure chronicity: acute on chronic Qualified Code(s): I50.33 - Acute on chronic diastolic (congestive) heart failure (3) COPD (chronic obstructive pulmonary disease): Status: Chronic Qualifiers: COPD type: emphysema Emphysema type: centrilobular Qualified Code(s): 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 - Centrilobular emphysema (4) Atrial fibrillation: Status: Chronic Qualifiers: Atrial fibrillation type: unspecified chronic Qualified Code(s): I48.20 - Chronic atrial fibrillation, unspecified (5) Anticoagulation adequate: On Eliquis Status: Chronic (6) Diabetes 1.5, managed as type 2: Status: Chronic (7) MOSHE (obstructive sleep apnea): Status: Chronic Additional A&P Information Observation admission Levaquin, steroids, breathing treatments Clarify inhaled home medications Continue Daliresp Check procalcitonin Lasix 40 mg IV x1 dose Continue home Eliquis Last echocardiogram was in November of last year demonstrating an ejection fraction of 50 to 55% Sliding scale insulin Other home medications as ordered May want to discuss with Dr. Drew Will need PFTs rescheduled To keep PET scan appt for this coming friday Eliquis provides appropriate VTE prophylaxis Anticipate discharge home Supportive care otherwise Full code Plans were discussed with patient and he was given an opportunity to ask questions Attestations Medical Necessity Statement*: Currently anticipated stay less than 2 midnights in a gentleman who has known chronic lung disease, low-grade fever and elevation in white count well as CT imaging showing some increased interstitial thickening compared to prior studies compatible with pneumonia. Nevertheless patient is not currently requiring increase in his usual oxygen and while he is dyspneic with exertion he is doing okay at rest. Current plans are as noted. Coding Level of Care Code Acute Lip Cutter for Robert Garcia Diagnoses Community acquired pneumonia J18.9 Laterality: left Lung location: lower lobe of lung Heart failure with preserved ejection fraction I50.33 Heart failure chronicity: acute on chronic COPD (chronic obstructive pulmonary disease) J43.2 COPD type: emphysema Emphysema type: centrilobular Atrial fibrillation I48.20 Atrial fibrillation type: unspecified chronic Anticoagulation adequate Z79.01 Diabetes 1.5, managed as type 2 E13.9 MOSHE (obstructive sleep apnea) G47.33
[2020-10-16] MEDS: FUROsemide 10 mg/mL SDV 4mL 40 MG IVP (06:01)
[2020-10-16] MEDS: levofloxacin-dextrose 5 % 750 MG/150 ML PREMIX 100 MG IV (06:04)
[2020-10-16 07:22] LABS: Glucose Point of Care 159 mg/dL (70-110)
[2020-10-16 08:17] LABS: Basophils # 0.1 10^3/uL (0.0-0.1); Basophils % 0.3 %; Eosinophils % 0.1 %; Hematocrit 37.8 % (42.0-52.0); Hemoglobin 12.1 g/dL (11.7-16.6); Lymphocytes # 0.8 10^3/uL (0.8-4.8); Lymphocytes % 4.3 %; Mean Corpuscular Hemoglobin 27.6 pg (28.0-34.0); Mean Corpuscular Volume 86.1 fL (80-94); Monocytes % 5.6 %; Neutrophils # 15.54 10^3/uL (1.8-7.7); Nucleated Red Blood Cells % 0 %; Platelet Count 175 10^3/cmm (130-400); Red Blood Count 4.39 10^6/uL (4.1-5.3); Red Cell Distribution Width 15.4 % (12.1-15.1); White Blood Count 17.5 10^3/uL (4.0-10.0)
[2020-10-16] MEDS: budesonide 0.5 mg/2 mL Neb INHALATION ×2 (08:33→20:06)
[2020-10-16] MEDS: ipratropium-albuterol 3 mL Neb INHALATION (08:33)
[2020-10-16] MEDS: metoprolol tartrate 50 mg Tablet 100 MG PO ×2 (08:40→21:11)
[2020-10-16] MEDS: potassium chloride ER 20 mEq Tablet PO (08:40)
[2020-10-16 08:41] LABS: Procalcitonin 0.52 ng/mL (0-0.5)
[2020-10-16] MEDS: famotidine 20 mg Tablet PO ×2 (08:41→17:47)
[2020-10-16] MEDS: apixaban 5 mg Tablet PO ×2 (08:41→21:11)
[2020-10-16] MEDS: roflumilast 500 mcg Tablet PO (08:41)
[2020-10-16] MEDS: tamsulosin 0.4 mg Capsule PO (08:41)
[2020-10-16] MEDS: predniSONE 20 mg Tablet 40 MG PO (08:41)
[2020-10-16] MEDS: lisinopril 20 mg Tablet 40 MG PO (08:41)
[2020-10-16 08:52] LABS: Blood Urea Nitrogen 13 mg/dL (8-23); Carbon Dioxide 24 mmol/L (22-29); Chloride 99 mmol/L (98-107); Glucose 151 mg/dL (65-115); Magnesium 1.4 mg/dL (1.7-2.3); Osmolality Calculated 281 mOsm/kg (285-295); Sodium 134 mmol/L (136-145)
[2020-10-16 12:04] LABS: Glucose Point of Care 203 mg/dL (70-110)
--- NOTE | 2020-10-16 14:11 | PC.RESP ---
Patient has been previously enrolled in [facility]monary [facility]hab and quit due to long drive. Will contact patient for possible re-enrollment.
--- NOTE | 2020-10-16 14:54 | P.PN_ITS ---
Subjective Subjective: Interval history: Patient was examined, he tells me that he is doing about the same, no fevers, no shortness of breath at rest, but does get short of breath with exertion Vitals/I&O/Wt Last Vital Signs Temp 97.6 F 10/16/20 11:36 Pulse 69 10/16/20 11:36 Resp 20 H 10/16/20 11:36 BP 139/78 10/16/20 11:36 Pulse Ox 97 10/16/20 11:36 10/15/20 10/16/20 10/16/20 22:59 06:59 14:59 Intake Total 1050 / 1050 350 / 1400 630 / 630 Output Total 750 / 750 850 / 850 Balance 1050 / 1050 -400 / 650 -220 / -220 Weight last 48 hrs Weight 73.981 kg Weight 72.121 kg Physical Exam Const: COMMON NORMALS: no acute distress and patient oriented x3 HENMT: COMMON NORMALS: normocephalic HEAD & SCALP: normocephalic Neck/C-Spine: COMMON NORMALS: no JVD Resp: COMMON NORMALS: normal respiratory effort, No retractions, No use of accessory muscles and clear to auscultation bilaterally AUSCULTATION: clear to auscultation bilaterally Cardio: COMMON NORMALS: no JVD, regular rate, regular rhythm, S1 normal heart sound present and S2 normal heart sound present RATE: regular rate RHYTHM: regular rhythm HEART SOUNDS: S1 normal heart sound present and S2 normal heart sound present GI: COMMON NORMALS: Normal to inspection, nondistended, normoactive bowel sounds present, Soft to palpation, non-tender, No hepatosplenomegaly present, no masses and no bruits PALPATION: Yes Soft to palpation and Yes No hepatosplenomegaly present Extremity: COMMON NORMALS: capillary refill normal, no clubbing, cyanosis or edema, no calf tenderness and no pedal edema Neuro: COMMON NORMALS: patient oriented x3 Psych: COMMON NORMALS: mental status grossly normal Data : 10/16/20 07:44 10/16/20 07:44 Micro: Microbiology 10/15/20 19:35 Blood Culture - Preliminary Blood SPECIMEN COLLECTED 10/15/20 19:36 Blood Culture - Preliminary Blood SPECIMEN COLLECTED A&P Assessment and plan (1) Community acquired pneumonia: CT of the chest did not show pulmonary emboli, but did show interstitial thickening in the lower lobes Continue Levaquin, incentive spirometer, flutter valve, monitor respiratory status, follow blood cultures, sputum cultures Status: Acute Qualifiers: Laterality: left Lung location: lower lobe of lung Qualified Code(s): J18.9 - Pneumonia, unspecified organism (2) Heart failure with preserved ejection fraction: Continue Lasix 40 mg daily Status: Chronic Qualifiers: Heart failure chronicity: acute on chronic Qualified Code(s): I50.33 - Acute on chronic diastolic (congestive) heart failure (3) COPD (chronic obstructive pulmonary disease): Continue 40 mg Lasix daily, inhaler therapy Status: Chronic Qualifiers: COPD type: emphysema Emphysema type: centrilobular Qualified Code(s): J43.2 - Centrilobular emphysema (4) Atrial fibrillation: Continue Eliquis Status: Chronic Qualifiers: Atrial fibrillation type: unspecified chronic Qualified Code(s): I48.20 - Chronic atrial fibrillation, unspecified (5) Anticoagulation adequate: On Eliquis Status: Chronic (6) Diabetes 1.5, managed as type 2: Status: Chronic (7) MOSHE (obstructive sleep apnea): Status: Chronic Additional A&P Information Change inpatient admission L evaquin, steroids, breathing treatments Continue Daliresp Check procalcitonin Lasix 40 mg IV x1 dose Continue home Eliquis Last echocardiogram was in November of last year demonstrating an ejection fraction of 50 to 55% Sliding scale insulin Other home medications as ordered Will need PFTs rescheduled Will likely need to reschedule PET scan Eliquis provides appropriate VTE prophylaxis Anticipate discharge home Supportive care otherwise Full code Plans were discussed with patient and he was given an opportunity to ask questions Attestations Medical Necessity Statement*: Patient requires hospitalization, inpatient, greater than 2 midnights for [facility] pneumonia, COPD, diastolic CHF Coding Level of Care Code Acute Hospice Nurse for Chg Fwd Diagnoses Community acquired pneumonia J18.9 Laterality: left Lung location: lower lobe of lung Heart failure with preserved ejection fraction I50.33 Heart failure chronicity: acute on chronic COPD (chronic obstructive pulmonary disease) J43.2 COPD type: emphysema Emphysema type: centrilobular Atrial fibrillation I48.20 Atrial fibrillation type: unspecified chronic Anticoagulation adequate Z79.01 Diabetes 1.5, managed as type 2 E13.9 MOSHE (obstructive sleep apnea) G47.33
[2020-10-16 17:23] LABS: Glucose Point of Care 211 mg/dL (70-110)
[2020-10-16] MEDS: levalbuterol 0.63 mg/3 mL Neb INHALATION (20:06)
[2020-10-16 20:28] LABS: Glucose Point of Care 270 mg/dL (70-110)
[2020-10-16] MEDS: atorvastatin 40 mg Tablet 20 MG PO (21:11)
[2020-10-17] VITALS (17 sets, daily range): BP systolic 117–169; BP diastolic 68–85; PULSE 60–136; RESP 17–18; TEMP 36.4–37.1; O2SAT 93–99
[2020-10-17] MEDS: levalbuterol 0.63 mg/3 mL Neb INHALATION ×4 (02:15→20:37)
[2020-10-17] MEDS: levofloxacin-dextrose 5 % 750 MG/150 ML PREMIX 100 MG IV (06:11)
[2020-10-17 06:23] LABS: Basophils % 0.2 %; Hematocrit 37.3 % (42.0-52.0); Hemoglobin 11.9 g/dL (11.7-16.6); Lymphocytes % 7.6 %; Mean Corpuscular HGB Conc 31.9 g/dL (30.0-36.0); Mean Corpuscular Hemoglobin 28.1 pg (28.0-34.0); Mean Platelet Volume 11.7 fL (7.4-10.4); Monocytes # 1.3 10^3/uL (0.2-0.9); Monocytes % 9.8 %; Neutrophils % 81.7 %; Nucleated Red Blood Cells % 0 %; Platelet Count 191 10^3/cmm (130-400); Red Blood Count 4.24 10^6/uL (4.1-5.3); Red Cell Distribution Width 15.3 % (12.1-15.1); White Blood Count 13.2 10^3/uL (4.0-10.0)
[2020-10-17 06:43] LABS: Glucose Point of Care 156 mg/dL (70-110)
[2020-10-17 06:47] LABS: Alanine Aminotransferase 26 U/L (0-41); Albumin Level 3.1 g/dL (3.5-5.2); Alkaline Phosphatase 118 IU/L (40-130); Anion Gap 15.2 (5-19); Aspartate Amino Transferase 20 U/L (0-40); Blood Urea Nitrogen 27 mg/dL (8-23); C Reactive Protein 185.8 mg/L (0.0-4.9); Carbon Dioxide 24 mmol/L (22-29); Chloride 101 mmol/L (98-107); Globulin 3.6 g/dL (1.3-4.6); Glucose 145 mg/dL (65-115); Osmolality Calculated 290 mOsm/kg (285-295); Phosphorus 2.6 mg/dL (2.5-4.5); Potassium 4.2 mmol/L (3.5-5.1); Sodium 136 mmol/L (136-145); Total Bilirubin 0.3 mg/dL (0.15-1.2); Total Protein 6.7 g/dL (6.6-8.7)
[2020-10-17 07:26] LABS: NT Pro B Type Natriuretic Pept 858 pg/mL (0-450); Procalcitonin 0.47 ng/mL (0-0.5)
[2020-10-17] MEDS: budesonide 0.5 mg/2 mL Neb INHALATION ×2 (09:10→20:37)
[2020-10-17] MEDS: metoprolol tartrate 50 mg Tablet 100 MG PO ×2 (09:18→21:09)
[2020-10-17] MEDS: tamsulosin 0.4 mg Capsule PO (09:18)
[2020-10-17] MEDS: apixaban 5 mg Tablet PO ×2 (09:18→21:08)
[2020-10-17] MEDS: FUROsemide 40 mg Tablet PO (09:18)
[2020-10-17] MEDS: famotidine 20 mg Tablet PO ×2 (09:18→17:33)
[2020-10-17] MEDS: roflumilast 500 mcg Tablet PO (09:18)
[2020-10-17] MEDS: lisinopril 20 mg Tablet 40 MG PO (09:18)
[2020-10-17] MEDS: predniSONE 20 mg Tablet 40 MG PO (09:18)
[2020-10-17] MEDS: potassium chloride ER 20 mEq Tablet PO (09:19)
[2020-10-17 12:30] LABS: Glucose Point of Care 172 mg/dL (70-110)
[2020-10-17] MEDS: cefTRIAXone 1,000 MG in sodium chloride 0.9% (plus) 50 ML 100 MG IV (12:48)
[2020-10-17] MEDS: azithromycin 500 MG in sodium chloride 0.9% 250 ML 250 MG IV (14:20)
--- NOTE | 2020-10-17 14:29 | P.PN_ITS ---
Subjective Subjective: Interval history: Patient was examined this morning, he still reports feeling short of breath, weak, fatigue, cough, no chest pain, no palpitations Vitals/I&O/Wt Last Vital Signs Temp 97.5 F L 10/17/20 12:00 Pulse 60 10/17/20 12:00 Resp 18 10/17/20 12:00 BP 169/85 10/17/20 12:00 Pulse Ox 99 10/17/20 12:00 10/16/20 10/17/20 10/17/20 22:59 06:59 14:59 Intake Total 240 / 870 800 / 800 Output Total 250 / 1100 800 / 1900 870 / 870 Balance -10 / -230 -800 / -1030 -70 / -70 Weight last 48 hrs Weight 73.663 kg Weight 73.981 kg Weight 72.121 kg Physical Exam Const: COMMON NORMALS: no acute distress and patient oriented x3 HENMT: COMMON NORMALS: normocephalic HEAD & SCALP: normocephalic Neck/C-Spine: COMMON NORMALS: no JVD Resp: COMMON NORMALS: normal respiratory effort, No retractions and No use of accessory muscles AUSCULTATION: crackles Cardio: COMMON NORMALS: no JVD, regular rate, regular rhythm, S1 normal heart sound present and S2 normal heart sound present RATE: regular rate RHYTHM: regular rhythm HEART SOUNDS: S1 normal heart sound present and S2 normal heart sound present GI: COMMON NORMALS: Normal to inspection, nondistended, normoactive bowel sounds present, Soft to palpation, non-tender, No hepatosplenomegaly present, no masses and no bruits PALPATION: Yes Soft to palpation and Yes No hepatosplenomegaly present Extremity: COMMON NORMALS: capillary refill normal, no clubbing, cyanosis or edema, no calf tenderness and no pedal edema Neuro: COMMON NORMALS: patient oriented x3 Psych: COMMON NORMALS: mental status grossly normal Data : 10/17/20 05:32 10/17/20 05:32 Micro: Microbiology 10/15/20 19:35 Blood Culture - Preliminary Blood NEGATIVE TO DATE 10/15/20 19:36 Blood Culture - Preliminary Blood NEGATIVE TO DATE A&P Assessment and plan (1) Community acquired pneumonia: CT of the chest did not show pulmonary emboli, but did show interstitial thickening in the lower lobes Giving slow clinical progress switch to Rocephin and azithromycin, increase Lasix to 40 mg IV twice daily, incentive spirometer, flutter valve, monitor respiratory status, follow blood cultures, sputum cultures Plan for today continue PT OT, aggressive pulmonary toilet, broaden antibiotic coverage to Rocephin azithromycin, increase Lasix to 40 mg IV twice daily Status: Acute Qualifiers: Laterality: left Lung location: lower lobe of lung Qualified Code(s): J18.9 - Pneumonia, unspecified organism (2) Heart failure with preserved ejection fraction: Increase Lasix to 40 mg IV twice daily Status: Chronic Qualifiers: Heart failure chronicity: acute on chronic Qualified Code(s): I50.33 - Acute on chronic diastolic (congestive) heart failure (3) COPD (chronic obstructive pulmonary disease): Continue 40 mg Lasix daily, inhaler therapy Status: Chronic Qualifiers: COPD type: emphysema Emphysema type: centrilobular Qualified Code(s): J43.2 - Centrilobular emphysema (4) Atrial fibrillation: Continue Eliquis Status: Chronic Qualifiers: Atrial fibrillation type: unspecified chronic Qualified Code(s): I48.20 - Chronic atrial fibrillation, unspecified (5) Anticoagulation adequate: On Eliquis Status: Chronic (6) Diabetes 1.5, managed as type 2: Status: Chronic (7) MOSHE (obstructive sleep apnea): Status: Chronic Additional A&P Information Continue home Eliquis Last echocardiogram was in November of last year demonstrating an ejection fraction of 50 to 55% Sliding scale insulin Other home medications as ordered Will need PFTs rescheduled Will likely need to reschedule PET scan Eliquis provides appropriate VTE prophylaxis Anticipate discharge home Supportive care otherwise Full code Plans were discussed with patient and he was given an opportunity to ask questions Attestations Medical Necessity Statement*: Requires hospitalization due to shortness of breath secondary to community-acquired pneumonia, heart failure Coding Level of Care Code Acute Financial Assistance Advisor for Robert Fwtadeo Diagnoses Community acquired pneumonia J18.9 Laterality: left Lung location: lower lobe of lung Heart failure with preserved ejection fraction I50.33 Heart failure chronicity: acute on chronic COPD (chronic obstructive pulmonary disease) J43.2 COPD type: emphysema Emphysema type: centrilobular Atrial fibrillation I48.20 Atrial fibrillation type: unspecified chronic Anticoagulation adequate Z79.01 Diabetes 1.5, managed as type 2 E13.9 MOSHE (obstructive sleep apnea) G47.33
[2020-10-17 17:02] LABS: Glucose Point of Care 226 mg/dL (70-110)
[2020-10-17] MEDS: FUROsemide 10 mg/mL SDV 4mL 40 MG IVP (17:33)
[2020-10-17 20:23] LABS: Glucose Point of Care 292 mg/dL (70-110)
[2020-10-17] MEDS: atorvastatin 40 mg Tablet 20 MG PO (21:08)
[2020-10-18] VITALS (18 sets, daily range): BP systolic 102–136; BP diastolic 55–78; PULSE 47–105; RESP 17–20; TEMP 36.4–37; O2SAT 72–99
[2020-10-18] MEDS: levalbuterol 0.63 mg/3 mL Neb INHALATION ×4 (03:16→21:00)
[2020-10-18 06:18] LABS: Basophils % 0.3 %; Eosinophils % 0.2 %; Hematocrit 38.9 % (42.0-52.0); Hemoglobin 12.3 g/dL (11.7-16.6); Lymphocytes # 1.8 10^3/uL (0.8-4.8); Lymphocytes % 15.6 %; Mean Corpuscular HGB Conc 31.6 g/dL (30.0-36.0); Mean Corpuscular Hemoglobin 27.5 pg (28.0-34.0); Mean Corpuscular Volume 86.8 fL (80-94); Mean Platelet Volume 11.8 fL (7.4-10.4); Monocytes # 1.1 10^3/uL (0.2-0.9); Monocytes % 9.7 %; Neutrophils # 8.38 10^3/uL (1.8-7.7); Neutrophils % 73.2 %; Nucleated Red Blood Cells % 0 %; Platelet Count 231 10^3/cmm (130-400); Red Blood Count 4.48 10^6/uL (4.1-5.3); Red Cell Distribution Width 15.2 % (12.1-15.1); White Blood Count 11.4 10^3/uL (4.0-10.0)
[2020-10-18 06:54] LABS: Glucose Point of Care 118 mg/dL (70-110)
[2020-10-18 07:08] LABS: NT Pro B Type Natriuretic Pept 1964 pg/mL (0-450); Procalcitonin 0.35 ng/mL (0-0.5)
[2020-10-18 07:27] LABS: Alanine Aminotransferase 32 U/L (0-41); Albumin Level 3.1 g/dL (3.5-5.2); Alkaline Phosphatase 105 IU/L (40-130); Anion Gap 16.8 (5-19); Aspartate Amino Transferase 21 U/L (0-40); Blood Urea Nitrogen 33 mg/dL (8-23); C Reactive Protein 75.9 mg/L (0.0-4.9); Calcium 9.1 mg/dL (8.5-10.5); Carbon Dioxide 24 mmol/L (22-29); Chloride 104 mmol/L (98-107); Globulin 3.5 g/dL (1.3-4.6); Glucose 131 mg/dL (65-115); Osmolality Calculated 301 mOsm/kg (285-295); Phosphorus 3.1 mg/dL (2.5-4.5); Potassium 3.8 mmol/L (3.5-5.1); Sodium 141 mmol/L (136-145); Total Bilirubin 0.2 mg/dL (0.15-1.2); Total Protein 6.6 g/dL (6.6-8.7)
[2020-10-18] MEDS: potassium chloride ER 20 mEq Tablet PO (08:26)
[2020-10-18] MEDS: predniSONE 20 mg Tablet 40 MG PO (08:26)
[2020-10-18] MEDS: apixaban 5 mg Tablet PO ×2 (08:26→21:21)
[2020-10-18] MEDS: lisinopril 20 mg Tablet 40 MG PO (08:26)
[2020-10-18] MEDS: famotidine 20 mg Tablet PO ×2 (08:26→18:08)
[2020-10-18] MEDS: metoprolol tartrate 50 mg Tablet 100 MG PO ×2 (08:26→21:21)
[2020-10-18] MEDS: roflumilast 500 mcg Tablet PO (08:26)
[2020-10-18] MEDS: tamsulosin 0.4 mg Capsule PO (08:26)
[2020-10-18] MEDS: budesonide 0.5 mg/2 mL Neb INHALATION ×2 (08:59→21:00)
--- NOTE | 2020-10-18 09:31 | ECG_ITS ---
[facility] ED Test Date: 2020-10-18 Pat Name: Jonathan Sultana Department: Room: 277 Gender: Male [employer] In [employer] Operator: : [id number] Requested By: Mahesh Gonzalez Order Number: [id number] Alexey MD: Lauren Spangler M.D. Measurements Intervals [place] Rate: 125 P: MS: QRS: 46 QRSD: 129 T: 155 QT: 310 QTc: 447 Interpretive Statements ATRIAL FIBRILLATION WITH RAPID VENTRICULAR RESPONSE LEFT BUNDLE BRANCH BLOCK [120+ ms QRS DURATION, 80+ ms Q/S IN V1/V2, 85+ ms R IN I/aVL/V5/V6] Compared to ECG 10/15/2020 19:18:09 Sinus rhythm no longer present Electronically Signed On 10-21-2020 0:10:39 CDT by Lauren Spangler M.D. [id number]
[2020-10-18] MEDS: FUROsemide 10 mg/mL SDV 4mL 40 MG IVP ×2 (10:28→21:21)
[2020-10-18] MEDS: cefTRIAXone 1,000 MG in sodium chloride 0.9% (plus) 50 ML 100 MG IV (10:29)
[2020-10-18 11:06] LABS: Glucose Point of Care 176 mg/dL (70-110)
--- NOTE | 2020-10-18 11:14 | P.PN_ITS ---
Subjective Subjective: Interval history: Patient tells me that he does experience shortness of breath with exertion, no fevers, no cough, no chills, he does tell me that when he got up and walked to the bathroom this morning, his heart rate went high, no lightheadedness, dizziness, no chest pain, no fall Vitals/I&O/Wt Last Vital Signs Temp 97.9 F 10/18/20 07:27 Pulse 55 L 10/18/20 09:07 Resp 20 H 10/18/20 08:59 BP 131/76 10/18/20 07:27 Pulse Ox 96 10/18/20 08:59 10/17/20 10/18/20 10/18/20 22:59 06:59 14:59 Intake Total 490 / 1290 Output Total 800 / 1670 950 / 2620 380 / 380 Balance -310 / -380 -950 / -1330 -380 / -380 Weight last 48 hrs Weight 69.808 kg Weight 73.663 kg Physical Exam Const: COMMON NORMALS: no acute distress and patient oriented x3 HENMT: COMMON NORMALS: normocephalic HEAD & SCALP: normocephalic Neck/C-Spine: COMMON NORMALS: no JVD Resp: COMMON NORMALS: normal respiratory effort, No retractions, No use of accessory muscles and clear to auscultation bilaterally AUSCULTATION: clear to auscultation bilaterally Cardio: COMMON NORMALS: no JVD, S1 normal heart sound present and S2 normal heart sound present RATE: tachycardic RHYTHM: abnormal rhythm irregularly irregular HEART SOUNDS: S1 normal heart sound present and S2 normal heart sound present GI: COMMON NORMALS: Normal to inspection, nondistended, normoactive bowel sounds present, Soft to palpation, non-tender, No hepatosplenomegaly present, no masses and no bruits PALPATION: Yes Soft to palpation and Yes No hepatosplenomegaly present Extremity: COMMON NORMALS: capillary refill normal, no clubbing, cyanosis or edema, no calf tenderness and no pedal edema Neuro: COMMON NORMALS: patient oriented x3 Psych: COMMON NORMALS: mental status grossly normal Data : 10/18/20 05:22 10/18/20 05:22 A&P Assessment and plan (1) Community acquired pneumonia: CT of the chest did not show pulmonary emboli, but did show interstitial thickening in the lower lobes -Continue Rocephin and azithromycin -iincentive spirometer, flutter valve, monitor respiratory status - follow blood cultures, sputum cultures so far negative -Continue Lasix 40 mg IV twice daily Plan for today continue PT OT, aggressive pulmonary toilet, broaden antibiotic coverage to Rocephin azithromycin, increase Lasix to 40 mg IV twice daily, add Cardizem 30 every 6 hours for A. fib, monitor telemetry closely, increase steroids to 40 every 12 hours Status: Acute Qualifiers: Laterality: left Lung location: lower lobe of lung Qualified Code(s): J18.9 - Pneumonia, unspecified organism (2) Heart failure with preserved ejection fraction: Increase Lasix to 40 mg IV twice daily Status: Chronic Qualifiers: Heart failure chronicity: acute on chronic Qualified Code(s): I50.33 - Acute on chronic diastolic (congestive) heart failure (3) COPD (chronic obstructive pulmonary disease): Does have wheezing on exam, switch to steroids 40 mg every 8 hours for the next 24 hours Status: Chronic Qualifiers: COPD type: emphysema Emphysema type: centrilobular Qualified Code(s): J43.2 - Centrilobular emphysema (4) Atrial fibrillation: -Does develop A. fib events with exertion, heart rates as high as 160 -EKG showed A. fib with RVR heart rate 125 -Continue Metro 100 twice daily -Add Cardizem 30 every 6 hours -Continue Eliquis -Last echocardiogram in November of last year showed EF of 50 to 55% Status: Chronic Qualifiers: Atrial fibrillation type: unspecified chronic Qualified Code(s): I48.20 - Chronic atrial fibrillation, unspecified (5) Anticoagulation adequate: On Eliquis Status: Chronic (6) Diabetes 1.5, managed as type 2: Status: Chronic (7) MOSHE (obstructive sleep apnea): Status: Chronic Additional A&P Information Sliding scale insulin Other home medications as ordered Will need PFTs rescheduled Will likely need to reschedule PET scan Eliquis provides appropriate VTE prophylaxis Anticipate discharge home Supportive care otherwise Full code Plans were discussed with patient and he was given an opportunity to ask questions Attestations Medical Necessity Statement*: Patient requires hospitalization for shortness of breath secondary [facility] pneumonia, heart failure, now with A. fib with RVR Coding Level of Care Code Acute Palaeontologist for Chg Fwd Diagnoses Community acquired pneumonia J18.9 Laterality: left Lung location: lower lobe of lung Heart failure with preserved ejection fraction I50.33 Heart failure chronicity: acute on chronic COPD (chronic obstructive pulmonary disease) J43.2 COPD type: emphysema Emphysema type: centrilobular Atrial fibrillation I48.20 Atrial fibrillation type: unspecified chronic Anticoagulation adequate Z79.01 Diabetes 1.5, managed as type 2 E13.9 MOSHE (obstructive sleep apnea) G47.33
[2020-10-18] MEDS: dilTIAZem 30 mg Tablet PO (11:50)
[2020-10-18] MEDS: azithromycin 500 MG in sodium chloride 0.9% 250 ML 250 MG IV (11:56)
--- NOTE | 2020-10-18 14:27 | USCV_ITS ---
Jonathan Sultana Age: 75 Gender: M : 1945 Exam Date: 10/18/2020 14:57 Ordering Phys: Mahesh Gonzalez MD Technologist: Jer Mcbride Exam Location: [facility] – [place] Indication: CHEST PAIN BP: 134 / 74 HR: 58 Rhythm: Sinus Technical Quality: Suboptimal MEASUREMENTS (Male / Female) Normal Values 2D ECHO LV Diastolic Diameter PLAX 4.1 cm 4.2 - 5.9 / 3.9 - 5.3 cm LV Systolic Diameter PLAX 2.7 cm IVS Diastolic Thickness 1.3 cm 0.6 - 1.0 / 0.6 - 0.9 cm IVS Systolic Thickness 1.2 cm LVPW Diastolic Thickness 1.0 cm 0.6 - 1.0 / 0.6 - 0.9 cm LVPW Systolic Thickness 1.1 cm LVOT Diameter 2.1 cm LV Ejection Fraction 2D Teich 62.8 % LV Ejection Fraction MOD 2C 65.0 % LV Ejection Fraction 2C AL 66.7 % LA Diameter 3.9 cm LA Width 3.5 cm LA Height 5.0 cm RA Width 3.9 cm RA Height 4.0 cm Aorta at Sinotubular Diameter 2.8 cm M-MODE Aortic Annulus Diameter 4.1 cm LA Ao Ratio MM 1.1 MV E Point Septal Separation 1.2 cm DOPPLER AV Peak Velocity 110.0 cm/s LVOT Peak Velocity 67.0 cm/s AV Area Cont Eq vti 2.1 cm squared AV Area Cont Eq pk 2.2 cm squared MV Area PHT 5.0 cm squared Mitral E to A Ratio 3.0 MV E' Velocity 49.5 cm/s Mitral E to MV E' Ratio 7.7 Mitral E to LV E' Lateral Ratio 7.9 Mitral E to LV E' Septal Ratio 7.6 TR Peak Velocity 195.7 cm/s TR Peak Gradient 15.3 mmHg TV Peak E Velocity 99.0 cm/s Right Atrial Pressure 3.0 mmHg Pulmonary Artery Systolic Pressu 18.3 mmHg FINDINGS Left Ventricle Normal LV size ejection fraction of 65%. Mild diffuse hypokinesia of the septum. Mild concentric left renal hypertrophy. Technically difficult study because of poor ultrasonic window Right Ventricle Mildly dilated right ventricle with a slightly diminished ejection fraction Right Atrium Mildly dilated right atrium Left Atrium The left atrium is normal in size. Mitral Valve Thickened mitral valve. Aortic Valve Appears to be thickened Tricuspid Valve Tricuspid valve not well visualized. Pulmonic Valve Pulmonic valve not well visualized. Pericardium Normal pericardium without effusion. Aorta Normal aortic annulus size. CONCLUSIONS Normal LV size ejection fraction of 65%. Mild diffuse hypokinesia of the septum. Mild concentric left renal hypertrophy. Minimally thickened aortic and mitral valves. There is no pericardial effusion. There are no intracardiac masses. Technically difficult study because of the poor ultrasonic window. Dr Florian Bob MD [facility] (Electronically Signed) Final Date: 19 October 2020 19:16 S
[2020-10-18 16:56] LABS: Glucose Point of Care 258 mg/dL (70-110)
[2020-10-18] MEDS: potassium chloride ER 20 mEq Tablet 40 MEQ PO (18:06)
[2020-10-18] MEDS: dilTIAZem 30 mg Tablet 60 MG PO (18:07)
[2020-10-18 19:59] LABS: Glucose Point of Care 313 mg/dL (70-110)
[2020-10-18] MEDS: atorvastatin 40 mg Tablet 20 MG PO (21:21)
[2020-10-19] VITALS (10 sets, daily range): BP systolic 125–151; BP diastolic 60–79; PULSE 54–84; RESP 17–18; TEMP 36.5–36.6; O2SAT 94–99
[2020-10-19] MEDS: dilTIAZem 30 mg Tablet 60 MG PO ×2 (00:19→12:37)
[2020-10-19] MEDS: levalbuterol 0.63 mg/3 mL Neb INHALATION ×2 (03:24→08:41)
[2020-10-19 05:55] LABS: Basophils % 0.3 %; Hematocrit 36.6 % (42.0-52.0); Hemoglobin 11.8 g/dL (11.7-16.6); Lymphocytes # 0.9 10^3/uL (0.8-4.8); Lymphocytes % 14.8 %; Mean Corpuscular HGB Conc 32.2 g/dL (30.0-36.0); Mean Corpuscular Volume 86.9 fL (80-94); Mean Platelet Volume 11.4 fL (7.4-10.4); Monocytes # 0.2 10^3/uL (0.2-0.9); Monocytes % 3.9 %; Neutrophils # 4.91 10^3/uL (1.8-7.7); Neutrophils % 78.9 %; Nucleated Red Blood Cells % 0 %; Platelet Count 236 10^3/cmm (130-400); Red Blood Count 4.21 10^6/uL (4.1-5.3); Red Cell Distribution Width 15.3 % (12.1-15.1); White Blood Count 6.2 10^3/uL (4.0-10.0)
[2020-10-19 06:20] LABS: Alanine Aminotransferase 34 U/L (0-41); Albumin Level 3.1 g/dL (3.5-5.2); Alkaline Phosphatase 102 IU/L (40-130); Aspartate Amino Transferase 19 U/L (0-40); Blood Urea Nitrogen 35 mg/dL (8-23); C Reactive Protein 36.2 mg/L (0.0-4.9); Calcium 8.8 mg/dL (8.5-10.5); Carbon Dioxide 26 mmol/L (22-29); Chloride 100 mmol/L (98-107); Globulin 3.3 g/dL (1.3-4.6); Glucose 193 mg/dL (65-115); Osmolality Calculated 289 mOsm/kg (285-295); Phosphorus 3.3 mg/dL (2.5-4.5); Sodium 133 mmol/L (136-145); Total Bilirubin 0.2 mg/dL (0.15-1.2); Total Protein 6.4 g/dL (6.6-8.7)
[2020-10-19 06:27] LABS: NT Pro B Type Natriuretic Pept 2080 pg/mL (0-450); Procalcitonin 0.18 ng/mL (0-0.5)
[2020-10-19 06:49] LABS: Glucose Point of Care 204 mg/dL (70-110)
[2020-10-19] MEDS: budesonide 0.5 mg/2 mL Neb INHALATION (08:41)
[2020-10-19] MEDS: famotidine 20 mg Tablet PO (09:15)
[2020-10-19] MEDS: roflumilast 500 mcg Tablet PO (09:15)
[2020-10-19] MEDS: potassium chloride ER 20 mEq Tablet PO (09:15)
[2020-10-19] MEDS: metoprolol tartrate 50 mg Tablet 100 MG PO (09:16)
[2020-10-19] MEDS: tamsulosin 0.4 mg Capsule PO (09:16)
[2020-10-19] MEDS: lisinopril 20 mg Tablet 40 MG PO (09:16)
[2020-10-19] MEDS: apixaban 5 mg Tablet PO (09:16)
--- NOTE | 2020-10-19 09:22 | PC.SOCIAL ---
IMM Update Pg. 2 of IMM updated and reviewed with patient who verbalized understanding. Copy provided.
[2020-10-19 11:47] LABS: Glucose Point of Care 244 mg/dL (70-110)
--- NOTE | 2020-10-19 12:41 | PM.DCS ---
Discharge Providers Date of Admission: 10/16/20 14:55 Date of Discharge: October 19, 2020 Attending Provider at Admission: Lia Dan MD Attending Provider at Discharge: Mahesh Gonzalez MD Primary Care Provider: Jina HooperP-Sergo Diagnoses at Discharge Discharge Diagnosis (1) Community acquired pneumonia: Status: Acute Qualifiers: Laterality: left Lung location: lower lobe of lung Qualified Code(s): J18.9 - Pneumonia, unspecified organism (2) Heart failure with preserved ejection fraction: Status: Chronic Qualifiers: Heart failure chronicity: acute on chronic Qualified Code(s): I50.33 - Acute on chronic diastolic (congestive) heart failure (3) COPD (chronic obstructive pulmonary disease): Status: Chronic Qualifiers: COPD type: emphysema Emphysema type: centrilobular Qualified Code(s): J43.2 - Centrilobular emphysema (4) Atrial fibrillation: Status: Chronic Qualifiers: Atrial fibrillation type: unspecified chronic Qualified Code(s): I48.20 - Chronic atrial fibrillation, unspecified (5) Anticoagulation adequate: Status: Chronic Permanent problem details: Eliquis (6) Diabetes 1.5, managed as type 2: Status: Chronic (7) MOSHE (obstructive sleep apnea): Status: Chronic Permanent problem details: Bipap 09/03 Reason for Visit Reason for Visit: SOB Hospital Course Hospital Course This is a 75-year-old male with a past medical history of COPD, diastolic CHF, chronically on 4 L, history of atrial fibrillation on Eliquis, hypertension, hyperlipidemia, CAD, bilateral carotid artery stenosis, CKD, type 2 diabetes, history of left bundle branch block, MOSHE who presents to [facility] due to shortness of breath Patient was admitted to [facility] for shortness of breath secondary to community-acquired pneumonia, diastolic CHF exacerbation. Patient received broad-spectrum antibiotic therapy, steroid therapy, diuretic therapy, clinically improved. Discharged on doxycycline, prednisone burst, Lasix therapy with close follow-up with primary care provider as outpatient. Patient did develop A. fib with RVR during episodes of exertion, in addition to his metoprolol of 100 twice daily, Cardizem 120 every 12 hours was added to his regimen. Patient did not develop episodes of tachycardia with exertion since this change. Patient is to follow-up with cardiology in 1 to 2 weeks. Patient will need to reschedule his PET scan and PFTs as outpatient. Physical Exam Const: COMMON NORMALS: no acute distress and patient oriented x3 HENMT: COMMON NORMALS: normocephalic HEAD & SCALP: normocephalic Neck/C-Spine: COMMON NORMALS: no JVD Resp: COMMON NORMALS: normal respiratory effort, No retractions, No use of accessory muscles and clear to auscultation bilaterally AUSCULTATION: clear to auscultation bilaterally Cardio: COMMON NORMALS: no JVD, regular rate, regular rhythm, S1 normal heart sound present and S2 normal heart sound present RATE: regular rate RHYTHM: regular rhythm HEART SOUNDS: S1 normal heart sound present and S2 normal heart sound present GI: COMMON NORMALS: Normal to inspection, nondistended, normoactive bowel sounds present, Soft to palpation, non-tender, No hepatosplenomegaly present, no masses and no bruits PALPATION: Yes Soft to palpation and Yes No hepatosplenomegaly present Extremity: COMMON NORMALS: capillary refill normal, no clubbing, cyanosis or edema, no calf tenderness and no pedal edema Neuro: COMMON NORMALS: patient oriented x3 Psych: COMMON NORMALS: mental status grossly normal Discharge Data Data Completed and Pending: Completed Studies During Hospitalization Category Date Time Status CT chest abd pel w con* Urgent Cat Scan 10/15/20 20:41 Completed XR chest 1V daniel ble [id number] Urgent Exams 10/15/20 19:20 Completed Pending at discharge Category Date Time Status Blood Culture Sta t Lab 10/15/20 19:35 Results Sputum Culture an d Gram Stain Stat Lab 10/16/20 14:57 Uncollected CV echo complete* [id number] Routine Ultrasound 10/18/20 14:27 Taken Labs from last 24 hours 10/19/20 10/19/20 10/19/20 11:01 06:42 05:37 WBC RBC Hgb Hct MCV MCH MCHC RDW Plt Count MPV Neut % (Auto) Lymph % (Auto) Taney % (Auto) Eos % (Auto) Baso % (Auto) Neut # (Auto) Lymph # (Auto) Taney # (Auto) Eos # (Auto) Baso # (Auto) Nucleated RBC % (a uto) Nucleated RBCs # Sodium Potassium Chloride Carbon Dioxide Anion Gap BUN Creatinine GFR Calculation Glucose POC Glucose 244 H 204 H Calculated Osmolal ity Calcium Phosphorus Magnesium Total Bilirubin AST ALT Alkaline Phosphata se C-Reactive Protein NT-Pro-B Natriuret Pep 2080 H Total Protein Albumin Globulin Procalcitonin 0.18 10/19/20 10/19/20 10/18/20 05:37 05:37 19:53 WBC 6.2 RBC 4.21 Hgb 11.8 Hct 36.6 L MCV 86.9 MCH 28.0 MCHC 32.2 RDW 15.3 H Plt Count 236 MPV 11.4 H Neut % (Auto) 78.9 Lymph % (Auto) 14.8 Taney % (Auto) 3.9 Eos % (Auto) 0.0 Baso % (Auto) 0.3 Neut # (Auto) 4.91 Lymph # (Auto) 0.9 Taney # (Auto) 0.2 Eos # (Auto) 0.0 Baso # (Auto) 0.0 Nucleated RBC % (a uto) 0 Nucleated RBCs # 0.0 Sodium 133 L Potassium 5.0 Chloride 100 Carbon Dioxide 26 Anion Gap 12.0 BUN 35 H Creatinine 0.9 GFR Calculation Not Reportable Glucose 193 H POC Glucose 313 H Calculated Osmolal ity 289 Calcium 8.8 Phosphorus 3.3 Magnesium 2.0 Total Bilirubin 0.2 AST 19 ALT 34 Alkaline Phosphata se 102 C-Reactive Protein 36.2 H NT-Pro-B Natriuret Pep Total Protein 6.4 L Albumin 3.1 L Globulin 3.3 Procalcitonin 10/18/20 16:51 WBC RBC Hgb Hct MCV MCH MCHC RDW Plt Count MPV Neut % (Auto) Lymph % (Auto) Taney % (Auto) Eos % (Auto) Baso % (Auto) Neut # (Auto) Lymph # (Auto) Taney # (Auto) Eos # (Auto) Baso # (Auto) Nucleated RBC % (a uto) Nucleated RBCs # Sodium Potassium Chloride Carbon Dioxide Anion Gap BUN Creatinine GFR Calculation Glucose POC Glucose 258 H Calculated Osmolal ity Calcium Phosphorus Magnesium Total Bilirubin AST ALT Alkaline Phosphata se C-Reactive Protein NT-Pro-B Natriuret Pep Total Protein Albumin Globulin Procalcitonin Vitals: Last Vital Signs Temp 97.7 F 10/19/20 08:00 Pulse 79 10/19/20 08:54 Resp 18 10/19/20 08:47 BP 151/73 10/19/20 08:00 Pulse Ox 96 10/19/20 08:47 Discharge Plan Discharge Patient Disposition: Home Condition: Stable Prescriptions: New doxycycline hyclate 100 mg capsule 100 mg PO BID 5 Days Qty: 10 RF: 0 prednisone 20 mg tablet 20 mg PO BID 5 Days Qty: 10 RF: 0 Cardizem 120 mg tablet 120 mg PO Q12H 30 Days Qty: 60 RF: 0 Continued Eliquis 5 mg tablet 5 mg PO BID@, RF: 0 atorvastatin 20 mg tablet 20 mg PO DAILY@21 RF: 0 alendronate [Fosamax] 70 mg tablet 70 mg PO Q7D RF: 0 potassium chloride 20 mEq Tablet Extended Release 20 meq PO DAILY@07 RF: 0 albuterol sulfate [Ventolin HFA] 90 mcg/actuation Hfa Aerosol Inhaler 1 puff inhalation Q4H.RESPIRATORY PRN (Reason: shortness of breath or wheezing) Qty: 18 RF: 0 metoprolol tartrate 50 mg tablet 100 mg PO BID@, RF: 0 lisinopril 40 mg tablet 40 mg PO DAILY@07 RF: 0 furosemide 40 mg tablet 40 mg PO DAILY RF: 0 glimepiride 2 mg tablet 1 mg PO DAILY@07 RF: 0 famotidine 20 mg tablet 20 mg PO DAILY RF: 0 tamsulosin 0.4 mg capsule 0.4 mg PO DAILY RF: 0 calcium carbonate-vitamin D3 [Oyster Shell Calcium-Vit D3] 500 mg(1,250mg) -200 unit tablet 500 tab PO DAILY@07 RF: 0 cholecalciferol (vitamin D3) 75 mcg (3,000 unit) Tablet 75 mcg PO DAILY RF: 0 Daliresp 500 mcg Tablet 500 mcg PO DAILY@07 RF: 0 Trelegy Ellipta 100-62.5-25 mcg Blister With Device 1 inh INHALATION DAILY@08 RF: 0 Bushra-C 1,000 units PO BID RF: 0 Xopenex HFA 45 mcg inhalation QID RF: 0 zinc 50 mg PO DAILY RF: 0 ropinirole 0.25 mg Tablet 0.25 mg PO BEDTIME RF: 0 Discontinued amlodipine 10 mg tablet 5 mg PO DAILY@07 RF: 0 Discharge Orders: Discharge Order (Routine); Ordered 10/19/20 Ordered By: Mahesh Gonzalez Referrals: Jina Hooper, HOME BASED ASSISTANT-C [Primary Care Provider] - Discharge Attestations Time Spent in Discharge Care*: greater than 30 min Quality Metrics Clinical Quality Measures During this hospital stay, did patient experience: None Coding Level of Care Code Acute Chg FW DC note Diagnoses Community acquired pneumonia J18.9 Laterality: left Lung location: lower lobe of lung Heart failure with preserved ejection fraction I50.33 Heart failure chronicity: acute on chronic COPD (chronic obstructive pulmonary disease) J43.2 COPD type: emphysema Emphysema type: centrilobular Atrial fibrillation I48.20 Atrial fibrillation type: unspecified chronic Anticoagulation adequate Z79.01 Diabetes 1.5, managed as type 2 E13.9 MOSHE (obstructive sleep apnea) G47.33
== END 2020-10-19 14:30 | disposition home or self-care (01) | DRG 291 ==
LOC: ER 22:28 → MEDSURG 23:26
PROVIDERS: Admitting Provider Hospitalist; Emergency Provider Emergency Medicine; PCP Nurse Practitioner Family; Visit Provider Family Medicine
DX: I13.0 Hypertensive heart and chronic kidney disease with heart failure and stage 1 through stage 4 chronic kidney disease, or unspecified chronic kidney disease (principal); I50.33 Acute on chronic diastolic (congestive) heart failure; J18.9 Pneumonia, unspecified organism; I48.20 Chronic atrial fibrillation, unspecified; N18.9 Chronic kidney disease, unspecified; E11.22 Type 2 diabetes mellitus with diabetic chronic kidney disease; J43.2 Centrilobular emphysema; Z99.81 Dependence on supplemental oxygen; R91.8 Other nonspecific abnormal finding of lung field; Z86.16 Personal history of COVID-19; I25.10 Atherosclerotic heart disease of native coronary artery without angina pectoris; N40.0 Benign prostatic hyperplasia without lower urinary tract symptoms; I65.23 Occlusion and stenosis of bilateral carotid arteries; K21.9 Gastro-esophageal reflux disease without esophagitis; Z85.828 Personal history of other malignant neoplasm of skin; E78.5 Hyperlipidemia, unspecified; I44.7 Left bundle-branch block, unspecified; G47.33 Obstructive sleep apnea (adult) (pediatric); M81.0 Age-related osteoporosis without current pathological fracture; G25.81 Restless legs syndrome; Z87.891 Personal history of nicotine dependence
CPT/HCPCS: 36415; 36416; 36600; 71045; 71260; 74177; 80048; 80053; 82805; 82962; 83605; 83735; 83880; 84100; 84145; 85025; 85610; 86140; 87040; 87804; 93005; 93306; 94640; 96365; 96367; 96372; 97116; 97161; 99285; G0378; J0456; J0696; J1815; J1940; J1956; J2920; J3490; J7030; J7050; J7512; J7614; J7626; Q9967

== ENCOUNTER 2021-01-01 06:21 | Outpatient (CLI) | payer MEDICARE, OTHER, SELFPAY ==
--- NOTE | 2021-01-01 13:29 | PFTS_ITS ---
Date of Study:01/01/21 Date of Dictation: 01/05/2021 MECHANICS: Postbronchodilator forced vital capacity (FVC) is reduced. Postbronchodilator forced expiratory volume in one second (FEV1) is very severely reduced 0.8L 25%. FEV1/FVC is reduced There is significant bronchodilator response in FVC. FLOW VOLUME LOOP: Severe scooping of the expiratory limb suggestive of significant airway obstruction . LUNG VOLUMES: Total lung capacity (TLC) is normal. Residual volume (RV) is increased suggestive of severe air trapping 182%. DIFFUSING CAPACITY FOR CARBON MONOXIDE: Severely reduced at 28% . INTERPRETATION: The pulmonary function tests are consistent with severe obstructive ventilatory disease with severe air trapping on lung volumes. There is significant bronchodilator response. There is severe gas transfer defect. Overall PFTs consistent with severe emphysema. Correlate clinically. MTDD
== END 2021-01-01 06:22 | disposition home or self-care (01) ==
PROVIDERS: PCP Nurse Practitioner Family; Visit Provider Internal Medicine Pulmonary Disease
DX: J44.9 Chronic obstructive pulmonary disease, unspecified (principal)
CPT/HCPCS: 94060; 94618; 94726; 94729

== ENCOUNTER 2021-02-13 08:31 | Outpatient (CLI) | payer OTHER, SELFPAY ==
--- NOTE | 2021-02-13 08:40 | USCV_ITS ---
Jonathan Sultana Age: 75 Gender: M : 1945 Exam Date: 02/13/2021 09:11 Ordering Phys: Jina Hooper Technologist: Padmini Santana [place]am Location: [facility] [place] Indication: CAROTID ATHEROSCLEROSIS Risk Factors: Previous Vascular Surgery: Right Brachial BP: / Left Brachial BP: / Right Left Velocity (cm/s) Spectral Plaque Velocity (cm/s) Spectral Plaque Syst/Diast Broadening Syst/Diast Broadening 78.60/ 14.50 Prox CCA 80.50 / 14.90 82.90/ 19.70 Mid CCA 64.90 / 17.90 100.30/25.40 Distal CCA 59.00 / 15.40 102.50/15.80 Prox ICA 143.90/ 30.60 89.30/ 19.30 Mid ICA 107.20/ 31.10 119.50/32.60 Distal ICA 97.40 / 22.50 172.60 ECA 12.80 1.19 ICA/CCA 1.79 Antegrade Vertebral Antegrade 52.10/ 12.80 cm/s 72.80/ 12.80 cm/s Tri Subclavian Tri 125.5 132.2 0 0 FINDINGS Moderate to heavy heterogeneous plaques at the left bifurcation and proximal ICA. Heavy plaques with a diminished velocity in the left external carotid artery. Mildly to moderate plaques of the right bifurcation and proximal internal carotid artery Antegrade flow in the vertebral arteries bilaterally Intimal thickening and minimal plaques in the common carotid arteries bilaterally CONCLUSIONS Moderate to heavy heterogeneous plaques at the left bifurcation and proximal internal carotid artery with Doppler features, consistent with 50 to 69% stenosis Mildl to moderate plaques of the right bifurcation and proximal internal carotid artery consistent with a less than 50% stenosis. Abnormal Doppler features suggesting high-grade proximal stenosis in the left external carotid artery. Compared to the study from 12/09/2019, there seems to be some progression of disease in the left external carotid artery Dr Florian Bob MD [facility] (Electronically Signed) Final Date: 13 February 2021 10:10 S
== END 2021-02-13 08:32 | disposition home or self-care (01) ==
PROVIDERS: PCP Nurse Practitioner Family; Visit Provider Nurse Practitioner Family
DX: I65.23 Occlusion and stenosis of bilateral carotid arteries (principal)
CPT/HCPCS: 93880

== ENCOUNTER 2021-04-23 23:10 | Emergency (ER) | payer OTHER, MEDICARE, SELFPAY ==
[2021-04-23 23:22] VITALS: BP 137/71; PULSE 121; RESP 18; TEMP 37.2; O2SAT 99; BMI 22.3
--- NOTE | 2021-04-23 23:26 | W.ED.SOB ---
HPI - SOB/Dyspnea General: Chief Complaint: Chest Pain Stated Complaint: SOB Time Seen by Provider: 04/23/21 23:22 History of Present Illness: HPI Narrative: 75-year-old male patient comes in with some increased shortness of breath. Patient has a history of atrial fib, COPD, home oxygen therapy, heart failure, diabetes, and CKD. Patient reports tonight he became more short of breath than usual. Which prompted him to come to the ER. Patient also reports that when he got up to walk he noticed that his heart rate would jump to 140. Review of Systems General: Reports: 10 or more systems reviewed and unremarkable except in HPI and below Resp: Reports: dyspnea PFSH ED PFSH: Medical History ASHD (arteriosclerotic heart disease) Atrial fibrillation BPH (benign prostatic hyperplasia) Carotid stenosis, bilateral CHF (congestive heart failure) CKD (chronic kidney disease) COPD (chronic obstructive pulmonary disease) Diabetes 1.5, managed as type 2 Fracture of second metatarsal bone GERD (gastroesophageal reflux disease) History of 2019 novel coronavirus disease (COVID-19) (~07/2020) History of echocardiogram (~11/2019) EF 50-55%, no valvular abnormalities, normal pulmonary pressures History of nonmelanoma skin cancer HTN (hypertension) Hyperlipidemia LBBB (left bundle branch block) MOSHE (obstructive sleep apnea) Bipap 09/03 Osteoporosis alendronate RLS (restless legs syndrome) Surgical History S/P carotid endarterectomy S/P carpal tunnel release S/P sinus surgery Family History Mother , AGE 64 Diabetes Cancer Father , AGE 62 CAD (coronary artery disease) Social History Quit status (tobacco): has quit using tobacco Year quit tobacco: 1999 [id number] Second hand smoke exposure: No Smoking risk assessment/counseling performed?: Yes Alcohol intake: never Lives independently: Yes Household members: spouse Housing: House Marital status: service: Yes branch: [employer] Current occupational status: retired Pets and animals: No History of recent travel: No Current gender identity: Male Physical Exam Const: COMMON NORMALS: no acute distress and patient oriented x3 GENERAL APPEARANCE: cooperative HENMT: COMMON NORMALS: normocephalic and Normal external nose present HEAD & SCALP: normal to inspection and normocephalic NOSE: Normal external nose present MOUTH: Normal oral and palatal mucosa present THROAT: posterior oropharynx normal Eye: GENERAL EYE: appearance normal, both eyes and all related structures Neck/C-Spine: COMMON NORMALS: full ROM Lymph: LYMPHATIC: no lymphadenopathy noted Chest: COMMONS NORMALS: normal inspection of the chest Resp: COMMON NORMALS: normal respiratory effort EFFORT & INSPECTION: Yes able to speak in complete sentences AUSCULTATION: wheezes (posterior) scattered wheezes Cardio: COMMON NORMALS: negative for regular rate RATE: abnormal rate and tachycardic GI: COMMON NORMALS: non-tender : COMMON NORMALS: Yes no CVA tenderness BLADDER/KIDNEY EXAM: Yes no CVA tenderness Back/Pelvis: COMMON NORMALS: no CVA tenderness and thoracic and lumbar spine normal to inspection Extremity: COMMON NORMALS: normal to inspection Neuro: COMMON NORMALS: patient oriented x3 and moves all extremities Psych: COMMON NORMALS: mental status grossly normal and cooperative Skin: COMMON NORMALS: no rashes or lesions noted GENERAL SKIN EXAM: no rashes or lesions noted Course Vital Signs: Vital signs: Vital Signs Temperature 99.0 F 04/23/21 23:22 Pulse Rate 81 04/24/21 01:23 Respiratory Rate 21 H 04/24/21 01:23 Blood Pressure 112/70 04/24/21 01:23 Pulse Oximetry 100 04/24/21 01:23 MDM - SOB/Dyspnea MDM Narrative: Medical decision making narrative: 75-year-old male patient comes in today with complaints of some increased shortness of breath and some increase in his heart rate. Patient states that he noticed tonight that he just felt more short of breath and when he got up to go to the bathroom his heart rate would spike up to the 140s 150s. Patient does have a history of atrial fib and takes 25 of metoprolol succinate daily. Patient appears well. Patient appears no acute distress. Patient appears in no pain. Vital signs are normal except for irregular tachycardic rhythm in the 120s. Differential diagnosis includes ACS, A. fib with RVR, COPD, pneumonia, UTI. Laboratory values were unremarkable. Patient did have some slight increase in his white blood cell count to 16.2. Patient was given 5 mg of metoprolol IV push which brought his rate back down to the 80s and resolved patient's dyspnea and discomfort. Patient felt comfortable to go home. Patient also complained of a frontal sinus headache and felt that he may have a little bit of a sinus infection. Patient was started on Augmentin 875 twice a day for the next 5 days. Encourage fluids rest and follow-up with primary care. Lab Data: Labs: Lab Results 04/23/21 04/23/21 04/23/21 23:20 23:20 23:20 WBC 16.2 10^3/uL H 10 ^3/uL (4.0-10.0) RBC 4.61 10^6/uL 10^6 /uL (4.1-5.3) Hgb 12.9 g/dL g/dL (11.7-16.6) Hct 40.9 % L % (42.0-52.0) MCV 88.7 fl fl (80-94) MCH 28.0 pg pg (28.0-34.0) MCHC 31.5 g/dL g/dL (30.0-36.0) RDW 15.3 % H % (12.1-15.1) Plt Count 202 10^3/cmm 10^3 /cmm (130-400) MPV 11.9 fL H fL (7.4-10.4) Neut % (Auto) 73.9 % % Lymph % (Auto) 12.2 % % [place] % (Auto) 11.2 % % Eos % (Auto) 1.7 % % Baso % (Auto) 0.7 % % Neut # (Auto) 11.96 10^3/uL H 1 0^3/uL (1.8-7.7) Lymph # (Auto) 2.0 10^3/uL 10^3/ uL (0.8-4.8) [place] # (Auto) 1.8 10^3/uL H 10^ 3/uL (0.2-0.9) Eos # (Auto) 0.3 10^3/uL 10^3/ uL (0.0-0.8) Baso # (Auto) 0.1 10^3/uL 10^3/ uL (0.0-0.1) Nucleated RBC % (a uto) 0 % % Nucleated RBCs # 0.0 /100WBC /100W BC Sodium 134 mmol/L L mmol /L (136-145) Potassium 4.2 mmol/L mmol/L (3.5-5.1) Chloride 97 mmol/L L mmol/ L (98-107) Carbon Dioxide 25 mmol/L mmol/L (22-29) Anion Gap 16.2 (5-19) BUN 19 mg/dL mg/dL (8-23) Creatinine 0.7 mg/dL mg/dL (0.7-1.2) GFR Calculation Not Reportable Glucose 121 mg/dL H mg/dL (65-115) Calculated Osmolal ity 282 mOsm/kg L mOs m/kg (285-295) Calcium 9.2 mg/dL mg/dL (8.5-10.5) Total Bilirubin 0.2 mg/dL mg/dL (0.15-1.2) AST 24 U/L U/L (0-40) ALT 23 U/L U/L (0-41) Alkaline Phosphata se 133 IU/L H IU/L (40-130) Troponin T Baselin e 14 ng/L ng/L (0-15) NT-Pro-B Natriuret Pep 198 pg/mL pg/mL (0-450) Total Protein 7.0 g/dL g/dL (6.6-8.7) Albumin 4.0 g/dL g/dL (3.5-5.2) Globulin 3.0 g/dL g/dL (1.3-4.6) Urine Color Urine Appearance Urine pH Ur Specific Gravit y Urine Protein Urine Glucose (UA) Urine Ketones Urine Blood Urine Nitrate Urine Bilirubin Urine Urobilinogen Ur Leukocyte Sandy ase 04/24/21 00:45 WBC RBC Hgb Hct MCV MCH MCHC RDW Plt Count MPV Neut % (Auto) Lymph % (Auto) [place] % (Auto) Eos % (Auto) Baso % (Auto) Neut # (Auto) Lymph # (Auto) [place] # (Auto) Eos # (Auto) Baso # (Auto) Nucleated RBC % (a uto) Nucleated RBCs # Sodium Potassium Chloride Carbon Dioxide Anion Gap BUN Creatinine GFR Calculation Glucose Calculated Osmolal ity Calcium Total Bilirubin AST ALT Alkaline Phosphata se Troponin T Baselin e NT-Pro-B Natriuret Pep Total Protein Albumin Globulin Urine Color Yellow (Yellow) Urine Appearance Clear (CLEAR) Urine pH 7 (5-7) Ur Specific Gravit y 1.005 (1.005-1.030) Urine Protein Neg (Negative) Urine Glucose (UA) Norm (Normal) Urine Ketones Negative (Negative) Urine Blood Neg (Negative) Urine Nitrate Negative (Negative) Urine Bilirubin Neg (Negative) Urine Urobilinogen Norm mg/dL mg/dL (Negative) Ur Leukocyte Sandy ase Negative (Negative) Discharge Plan Discharge Patient Disposition: Home Clinical Impression: Atrial fibrillation with tachycardic ventricular rate Acute frontal sinusitis Qualifiers: Recurrence: not specified as recurrent Qualified Code(s): J01.10 - Acute frontal sinusitis, unspecified Condition: Stable Prescriptions: New Augmentin 875-125 mg tablet 1 tab PO BID Qty: 10 RF: 0 No Action Eliquis 5 mg tablet 5 mg PO BID@07,21 RF: 0 atorvastatin 20 mg tablet 20 mg PO DAILY@21 RF: 0 alendronate [Fosamax] 70 mg tablet 70 mg PO Q7D RF: 0 lisinopril 20 mg tablet 20 mg PO DAILY Qty: 30 RF: 3 amlodipine 5 mg tablet 5 mg PO DAILY Qty: 90 RF: 0 metoprolol succinate 25 mg tablet extended release 24 hr 25 mg PO DAILY Qty: 90 RF: 2 potassium chloride 20 mEq Tablet Extended Release 20 meq PO DAILY@07 RF: 0 furosemide 40 mg tablet 40 mg PO DAILY RF: 0 glimepiride 2 mg tablet 1 mg PO DAILY@07 RF: 0 famotidine 20 mg tablet 20 mg PO DAILY RF: 0 tamsulosin 0.4 mg capsule 0.4 mg PO DAILY RF: 0 calcium carbonate-vitamin D3 [Oyster Shell Calcium-Vit D3] 500 mg(1,250mg) -200 unit tablet 500 tab PO DAILY@07 RF: 0 cholecalciferol (vitamin D3) 75 mcg (3,000 unit) Tablet 75 mcg PO DAILY RF: 0 Daliresp 500 mcg Tablet 500 mcg PO DAILY@07 RF: 0 Trelegy Ellipta 100-62.5-25 mcg Blister With Device 1 inh INHALATION DAILY@08 RF: 0 Bushra-C 1,000 units PO BID RF: 0 Xopenex HFA 45 mcg inhalation QID RF: 0 zinc 50 mg PO DAILY RF: 0 ropinirole 0.25 mg Tablet 0.25 mg PO BEDTIME RF: 0 Discharge Orders: Discharge ED (Routine); Ordered 04/24/21 Ordered By: Hill Ayala Referrals: Jina Hooper, FLIGHT KITCHEN MANAGER-C [Primary Care Provider] - Discharge Diet: Usual diet Discharge Activity: Increase activity as tolerated Patient Instructions: Opioid Safety Activity Restrictions/Additional Instructions: Take antibiotic as directed. 1 Augmentin 875 twice a day for 5 days. Continue with routine medications. Increase metoprolol succinate 25 mg to 2 tablets daily. You may divide the dose up into twice a day if it is more convenient for you. Follow-up with primary care in 3 days for recheck. Return to the ER for worsening discomfort chest pain or shortness of breath. Coding Level of Care Code ED Progressive Care Unit Registered Nurse for Robert Garcia Exam Comprehensive
--- NOTE | 2021-04-23 23:28 | XRR_ITS ---
PROCEDURE INFORMATION: Exam: XR Chest Exam date and time: 04/23/2021 11:28 PM Age: 75 years old Clinical indication: Shortness of breath; Additional info: Dyspnea, chest and back pain TECHNIQUE: Imaging protocol: XR of the chest. Views: 1 view. COMPARISON: CT chest abd pel w con* 10/15/2020 9:50 PM FINDINGS: Lungs: Emphysematous changes. Bibasilar atelectasis versus infiltrate. Pleural spaces: Unremarkable. No pleural effusion. No pneumothorax. Heart/Mediastinum: Unremarkable. No cardiomegaly. Bones/joints: Unremarkable. XR/XR chest 1V portable [id number] IMPRESSION: 1. Emphysematous changes. 2. Bibasilar atelectasis versus infiltrate.
[2021-04-23 23:34] LABS: Basophils # 0.1 10^3/uL (0.0-0.1); Basophils % 0.7 %; Eosinophils # 0.3 10^3/uL (0.0-0.8); Eosinophils % 1.7 %; Hematocrit 40.9 % (42.0-52.0); Hemoglobin 12.9 g/dL (11.7-16.6); Lymphocytes % 12.2 %; Mean Corpuscular HGB Conc 31.5 g/dL (30.0-36.0); Mean Corpuscular Volume 88.7 fl (80-94); Mean Platelet Volume 11.9 fL (7.4-10.4); Monocytes # 1.8 10^3/uL (0.2-0.9); Monocytes % 11.2 %; Neutrophils # 11.96 10^3/uL (1.8-7.7); Neutrophils % 73.9 %; Nucleated Red Blood Cells % 0 %; Platelet Count 202 10^3/cmm (130-400); Red Blood Count 4.61 10^6/uL (4.1-5.3); Red Cell Distribution Width 15.3 % (12.1-15.1); White Blood Count 16.2 10^3/uL (4.0-10.0)
[2021-04-24] MEDS: metoprolol tartrate 1 mg/1 mL SDV 5 mL 5 MG IVP
[2021-04-24 00:03] LABS: Troponin(5th) Baseline 14 ng/L (0-15)
[2021-04-24 00:12] LABS: Alanine Aminotransferase 23 U/L (0-41); Alkaline Phosphatase 133 IU/L (40-130); Aspartate Amino Transferase 24 U/L (0-40); Blood Urea Nitrogen 19 mg/dL (8-23); Calcium 9.2 mg/dL (8.5-10.5); Carbon Dioxide 25 mmol/L (22-29); Chloride 97 mmol/L (98-107); Creatinine Clr Calc Pharmacy 83.7439; Glucose 121 mg/dL (65-115); NT Pro B Type Natriuretic Pept 198 pg/mL (0-450); Osmolality Calculated 282 mOsm/kg (285-295); Sodium 134 mmol/L (136-145); Total Bilirubin 0.2 mg/dL (0.15-1.2)
[2021-04-24 00:16] LABS: Anion Gap 16.2 (5-19); Potassium 4.2 mmol/L (3.5-5.1)
[2021-04-24 00:26] VITALS: BP 115/70; PULSE 84; RESP 20; O2SAT 98
[2021-04-24] MEDS: metoprolol succinate ER (24 HR) 25 mg Tablet PO (00:41)
[2021-04-24 00:57] LABS: Add Urine Microscopic? NO; Charge for UA Resulting for Rev
[2021-04-24 01:18] LABS: Bilirubin Urine Neg (Negative); Blood Urine Neg (Negative); Glucose Urine UA Norm (Normal); Ketones Urine Negative (Negative); Leukocyte Esterase Urine Negative (Negative); Nitrate Urine Negative (Negative); Protein Urine Neg (Negative); Specific Gravity, Urine 1.005 (1.005-1.030); Urine Appearance Clear (CLEAR); Urine Color Yellow (Yellow); Urobilinogen Urine Norm (Negative); pH Urine 7 (5-7)
[2021-04-24 01:23] VITALS: BP 112/70; PULSE 81; RESP 21; O2SAT 100
[2021-04-24] MEDS: amoxicillin-clav 875-125 mg Tablet 1 TAB PO (02:12)
[2021-04-24 02:13] VITALS: BP 114/79; PULSE 88; RESP 18; O2SAT 100
== END 2021-04-24 02:15 | disposition home or self-care (01) ==
PROVIDERS: Emergency Provider Nurse Practitioner Family; PCP Nurse Practitioner Family
DX: J01.10 Acute frontal sinusitis, unspecified (principal); I48.20 Chronic atrial fibrillation, unspecified; Z79.01 Long term (current) use of anticoagulants; Z79.84 Long term (current) use of oral hypoglycemic drugs; I11.0 Hypertensive heart disease with heart failure; I50.9 Heart failure, unspecified; J44.9 Chronic obstructive pulmonary disease, unspecified; E13.9 Other specified diabetes mellitus without complications; E78.5 Hyperlipidemia, unspecified; Z87.891 Personal history of nicotine dependence
CPT/HCPCS: 71045; 80053; 81003; 83880; 84484; 85025; 96374; 99284; J3490

== ENCOUNTER 2021-07-24 12:11 | Emergency (ER) | payer OTHER, MEDICARE, SELFPAY ==
[2021-07-24 12:21] VITALS: BP 125/71; PULSE 87; RESP 22; TEMP 36.7; O2SAT 97; BMI 22.6
[2021-07-24 12:28] VITALS: BP 121/76; PULSE 111; RESP 16; O2SAT 94
--- NOTE | 2021-07-24 12:56 | ED_ITS ---
HPI - SOB/Dyspnea General: Chief Complaint: Shortness of Breath/Dyspnea Stated Complaint: o2 dropping lower left side pain sob Time Seen by Provider: 07/24/21 12:56 History of Present Illness: HPI Narrative: 76-year-old male presents emergency room complaining of shortness of breath. He is normally on oxygen at 4 L/min with any activity becomes short of breath when he turns it up to 5. On arrival in the room however the patient is on 2 L by nasal cannula and his oxygen sats are maintaining in the mid 90s pretty comfortably. He is mildly tachycardic. He has a history of atrial fibrillation. Initially had a difficult time tracking his heart rate on the monitor due to artifacts. He is on a anticoagulant Eliquis 5 mg twice daily. MD elicited complaint: shortness of breath and cough Pertinent past history: COPD Onset (ago): week(s) (3) Timing: constant Severity: moderate Exacerbating factors: exertion and coughing Relieving factors: oxygen and rest Known history of: COPD and other (Atrial fibrillation) Associated symptoms: Reports chest congestion and cough; Deny abdominal pain, chest pain, diaphoresis, dizziness, extremity pain, fever(s), hemoptysis, lightheadedness, myalgias, nausea, orthopnea, palpitations, paresthesias, polydipsia, polyuria, rash, sense of impending doom, syncope or vomiting Treatment prior to arrival: oxygen Review of Systems Const: Denies: fever(s) or diaphoresis ENMT: Denies: throat pain, ear or mastoid pain, nasal discharge or nasal congestion Card: Denies: chest pain, palpitations, lightheadedness, syncope or orthopnea Resp: Reports: chest congestion; Denies: hemoptysis GI: Denies: abdominal pain, nausea or vomiting : Denies: flank pain, dysuria, urinary frequency or urinary urgency Musc: Denies: extremity pain Skin/Breast: Denies: rash or pruritus Neuro: Denies: dizziness Endo: Denies: polyuria or polydipsia PFS ED PFSH: Medical History ASHD (arteriosclerotic heart disease) Atrial fibrillation BPH (benign prostatic hyperplasia) Carotid stenosis, bilateral CHF (congestive heart failure) CKD (chronic kidney disease) COPD (chronic obstructive pulmonary disease) Diabetes 1.5, managed as type 2 Fracture of second metatarsal bone GERD (gastroesophageal reflux disease) History of 2019 novel coronavirus disease (COVID-19) (~07/2020) History of echocardiogram (~11/2019) EF 50-55%, no valvular abnormalities, normal pulmonary pressures History of nonmelanoma skin cancer HTN (hypertension) Hyperlipidemia LBBB (left bundle branch block) MOSHE (obstructive sleep apnea) Bipap 09/03 Osteoporosis alendronate RLS (restless legs syndrome) Surgical History S/P carotid endarterectomy S/P carpal tunnel release S/P sinus surgery Family History Mother , AGE 64 Diabetes Cancer Father , AGE 62 CAD (coronary artery disease) Social History Smoking and tobacco status: former smoker Quit status (tobacco): has quit using tobacco Year quit tobacco: 1999 [id number] Second hand smoke exposure: No Smoking risk assessment/counseling performed?: Yes Alcohol intake: never Lives independently: Yes Household members: spouse Housing: House Marital status: service: Yes branch: [employer] Current occupational status: retired Pets and animals: No History of recent travel: No Current gender identity: Male Physical Exam Const: COMMON NORMALS: no acute distress GENERAL APPEARANCE: cooperative and comfortable ORIENTATION/CONSCIOUSNESS: Yes awake, Yes oriented to person, Yes oriented to place and Yes oriented to time HENMT: COMMON NORMALS: normocephalic, atraumatic, hearing grossly normal bilaterally, external ears normal, EAC's normal, TM's normal bilaterally and Normal nasal mucous membranes and turbinates present HEAD & SCALP: normocephalic and atraumatic NOSE: Normal nasal mucous membranes and turbinates present EXTERNAL EAR: Yes external ears normal EXTERNAL AUDITORY CANAL: EAC's normal TYMPANIC MEMBRANE: TM's normal bilaterally Resp: COMMON NORMALS: normal respiratory effort, No retractions, No use of accessory muscles and clear to auscultation bilaterally AUSCULTATION: clear to auscultation bilaterally Cardio: RATE: tachycardic RHYTHM: abnormal rhythm irregularly irregular GI: COMMON NORMALS: Soft to palpation and No hepatosplenomegaly present AUSCULTATION: Yes normoactive bowel sounds PALPATION: Yes Soft to palpation, No Tenderness to palpation present (GI), No Guarding due to palpation present (GI) and Yes No hepatosplenomegaly present Extremity: COMMON NORMALS: normal to inspection, capillary refill normal, no clubbing, cyanosis or edema, no calf tenderness and no pedal edema Neuro: SENSORIUM/ORIENTATION: Yes oriented to person, Yes oriented to place and Yes oriented to time Skin: COMMON NORMALS: no rashes or lesions noted GENERAL SKIN EXAM: no rashes or lesions noted Course Vital Signs: Vital signs: Vital Signs Temperature 98.1 F 07/24/21 12: Pulse Rate 81 07/24/21 16:28 Respiratory Rate 18 07/24/21 16:28 Blood Pressure 123/70 07/24/21 16:28 Pulse Oximetry 97 07/24/21 16:28 MDM - SOB/Dyspnea MDM Narrative: Medical decision making narrative: Rate controlled with additional beta-henrik. He is feeling much better he had a transient drop in his blood pressure then it resolved. He is feeling much better is not any difficulty breathing. We will go ahead and discharge him home decrease his amlodipine to 5 mg daily and increase his metoprolol to 75 daily he should recheck within the next week to reevaluate blood pressure any further problems return we will set him up for an outpatient Holter monitor to see if were keeping his rate well controlled. Lab Data: Labs: Lab Results 07/24/21 07/24/21 07/24/21 13:08 13:46 13:46 WBC 17.4 10^3/uL H 10 ^3/uL (4.0-10.0) RBC 5.17 10^6/uL 10^6 /uL (4.1-5.3) Hgb 14.8 g/dL g/dL (11.7-16.6) Hct 45.3 % % (42.0-52.0) MCV 87.6 fl fl (80-94) MCH 28.6 pg pg (28.0-34.0) MCHC 32.7 g/dL g/dL (30.0-36.0) RDW 15.3 % H % (12.1-15.1) Plt Count 221 10^3/cmm 10^3 /cmm (130-400) MPV 11.5 fL H fL (7.4-10.4) Neut % (Auto) 70.3 % % Lymph % (Auto) 11.2 % % [place] % (Auto) 15.8 % % Eos % (Auto) 0.2 % % Baso % (Auto) 0.9 % % Neut # (Auto) 12.20 10^3/uL H 1 0^3/uL (1.8-7.7) Lymph # (Auto) 2.0 10^3/uL 10^3/ uL (0.8-4.8) [place] # (Auto) 2.7 10^3/uL H 10^ 3/uL (0.2-0.9) Eos # (Auto) 0.0 10^3/uL 10^3/ uL (0.0-0.8) Baso # (Auto) 0.2 10^3/uL H 10^ 3/uL (0.0-0.1) Nucleated RBC % (a uto) 0 % % Nucleated RBCs # 0.0 /100WBC /100W BC Specimen Type Arterial Sample Site Brachial, left ABG pH 7.49 H (7.35-7.45) ABG pCO2 36.4 mmHg mmHg (35-45) ABG pO2 99.5 mmHg mmHg (80.0-100.0) ABG HCO3 27.6 mmol/L H mmo l/L (22-26) ABG O2 Saturation 98.3 ABG Base Excess 4.2 mmol/L H mmol /L (-2.0-2.0) Mariano Test N/a A-a O2 Gradient 6.5 mmHg mmHg (5-10) Hematocrit 46.2 % % (42-52) Hgb O2 Saturation 96.4 % % (95-100) Carboxyhemoglobin 0.8 %THgb %THgb (0.4-20.1) Methemoglobin 1.1 % % (0.4-1.5) Total Hemoglobin 15.1 g/dL g/dL (14-18) Sodium 140.0 mmol/L mmol /L Cancelled (131-143) Potassium 4.0 mmol/L mmol/L Cancelled (3.5-5.0) Glucose 119.0 mg/dL H mg/ dL Cancelled (70-115) Ionized Calcium 1.3 mmol/L mmol/L (1.1-1.4) O2 Delivery Device Nc O2 Liters/Min 2.0 % % FiO2 28.0 % % Civil Rights Investigator ID Ed Chloride Cancelled Carbon Dioxide Cancelled Anion Gap Cancelled BUN Cancelled Creatinine Cancelled GFR Calculation Cancelled Calculated Osmolal ity Cancelled Calcium Cancelled Total Bilirubin Cancelled AST Cancelled ALT Cancelled Alkaline Phosphata se Cancelled Troponin T Baselin e Troponin T 120 Min [place] Troponin T Total Protein Cancelled Albumin Cancelled Globulin Cancelled 07/24/21 07/24/21 07/24/21 13:46 14:17 14:17 WBC RBC Hgb Hct MCV MCH MCHC RDW Plt Count MPV Neut % (Auto) Lymph % (Auto) [place] % (Auto) Eos % (Auto) Baso % (Auto) Neut # (Auto) Lymph # (Auto) [place] # (Auto) Eos # (Auto) Baso # (Auto) Nucleated RBC % (a uto) Nucleated RBCs # Specimen Type Sample Site ABG pH ABG pCO2 ABG pO2 ABG HCO3 ABG O2 Saturation ABG Base Excess Mariano Test A-a O2 Gradient Hematocrit Hgb O2 Saturation Carboxyhemoglobin Methemoglobin Total Hemoglobin Sodium 139 mmol/L mmol/L (136-145) Potassium 4.3 mmol/L mmol/L (3.5-5.1) Glucose 114 mg/dL mg/dL (65-115) Ionized Calcium O2 Delivery Device O2 Liters/Min FiO2 Civil Rights Investigator ID Chloride 100 mmol/L mmol/L (98-107) Carbon Dioxide 25 mmol/L mmol/L (22-29) Anion Gap 18.3 (5-19) BUN 24 mg/dL H mg/dL (8-23) Creatinine 1.0 mg/dL mg/dL (0.7-1.2) GFR Calculation Not Reportable Calculated Osmolal ity 293 mOsm/kg mOsm/ kg (285-295) Calcium 9.7 mg/dL mg/dL (8.5-10.5) Total Bilirubin 0.4 mg/dL mg/dL (0.15-1.2) AST 15 U/L U/L (0-40) ALT 18 U/L U/L (0-41) Alkaline Phosphata se 106 IU/L IU/L (40-130) Troponin T Baselin e Cancelled 14 ng/L ng/L (0-15) Troponin T 120 Min [place] Troponin T Total Protein 6.9 g/dL g/dL (6.6-8.7) Albumin 3.8 g/dL g/dL (3.5-5.2) Globulin 3.1 g/dL g/dL (1.3-4.6) 07/24/21 15:48 WBC RBC Hgb Hct MCV MCH MCHC RDW Plt Count MPV Neut % (Auto) Lymph % (Auto) [place] % (Auto) Eos % (Auto) Baso % (Auto) Neut # (Auto) Lymph # (Auto) [place] # (Auto) Eos # (Auto) Baso # (Auto) Nucleated RBC % (a uto) Nucleated RBCs # Specimen Type Sample Site ABG pH ABG pCO2 ABG pO2 ABG HCO3 ABG O2 Saturation ABG Base Excess Mariano Test A-a O2 Gradient Hematocrit Hgb O2 Saturation Carboxyhemoglobin Methemoglobin Total Hemoglobin Sodium Potassium Glucose Ionized Calcium O2 Delivery Device O2 Liters/Min FiO2 Civil Rights Investigator ID Chloride Carbon Dioxide Anion Gap BUN Creatinine GFR Calculation Calculated Osmolal ity Calcium Total Bilirubin AST ALT Alkaline Phosphata se Troponin T Baselin e Troponin T 120 Min [place] 14.22 ng/L ng/L (0-15) Delta Troponin T 0.22 ABS# ABS# (0-10) Total Protein Albumin Globulin Discharge Plan Discharge Patient Disposition: Home Clinical Impression: Atrial fibrillation, COPD (chronic obstructive pulmonary disease) Condition: Stable Prescriptions: Changed amlodipine 10 mg tablet 5 mg PO DAILY Qty: 90 RF: 1 metoprolol succinate 50 mg tablet extended release 24 hr 75 mg PO DAILY Qty: 90 RF: 3 No Action Eliquis 5 mg tablet 5 mg PO BID@07,21 RF: 0 atorvastatin 20 mg tablet 20 mg PO DAILY@21 RF: 0 alendronate [Fosamax] 70 mg tablet 70 mg PO Q7D RF: 0 lisinopril 20 mg tablet 20 mg PO DAILY Qty: 30 RF: 3 potassium chloride 20 mEq Tablet Extended Release 20 meq PO DAILY@07 RF: 0 furosemide 40 mg tablet 40 mg PO DAILY RF: 0 glimepiride 2 mg tablet 1 mg PO DAILY@07 RF: 0 famotidine 20 mg tablet 20 mg PO DAILY RF: 0 ascorbic acid (vitamin C) [Vitamin C] 500 mg Tablet 500 mg PO DAILY Qty: 0 RF: 0 tamsulosin 0.4 mg capsule 0.4 mg PO DAILY RF: 0 zinc 50 mg Tablet 50 mg PO DAILY Qty: 0 RF: 0 levalbuterol tartrate [Xopenex HFA] 45 mcg/actuation Hfa Aerosol Inhaler 1 puff INHALATION Q6H PRN (Reason: Shortness Of Breath) Qty: 0 RF: 0 calcium carbonate-vitamin D3 [Oyster Shell Calcium-Vit D3] 500 mg(1,250mg) - 200 unit tablet 500 tab PO DAILY@07 RF: 0 cholecalciferol (vitamin D3) 75 mcg (3,000 unit) Tablet 75 mcg PO DAILY RF: 0 Daliresp 500 mcg Tablet 500 mcg PO DAILY@07 RF: 0 Trelegy Ellipta 100-62.5-25 mcg Blister With Device 1 inh INHALATION DAILY@08 RF: 0 ropinirole 0.25 mg Tablet 0.25 mg PO BEDTIME RF: 0 Discharge Orders: Discharge ED (Routine); Ordered 07/24/21 Ordered By: Allen Ji Referrals: Jina Hooper, SENIOR CLINICAL RESEARCH SCIENTIST-C [Primary Care Provider] - Discharge Diet: Usual diet Discharge Activity: Resume usual activity Patient Instructions: Opioid Safety Activity Restrictions/Additional Instructions: Check with your primary care doctor within the next week to reevaluate heart rate and blood pressure Coding Level of Care Code ED Risk Management Manager for Robert Fwd Exam Comprehensive
--- NOTE | 2021-07-24 12:58 | XR_ITS ---
WS: [id number] Portable AP upright chest, 07/24/2021 Clinical Data: dyspnea/cough Comparison: Portable chest, 04/23/2021. Findings: No nodules, masses or effusions are seen. The heart is normal. The pulmonary vascularity is not increased. No pneumothorax is seen. The diaphragms are flattened and there is patchy atelectasis over the surface of both diaphragms. Acute pneumonia is likely. There are monitor leads on the chest wall. XR/XR chest 1V portable [id number] Impression: Hyperinflation and bibasilar atelectasis.
--- NOTE | 2021-07-24 12:58 | ECG_ITS ---
[facility] Test Date: 2021-07-24 Pat Name: Jonathan Sultana Department: Room: Gender: Male Nurse Discharge Planner: : 1945 Requested By: Allen Holden Order Number: [id number] Alexey MD: Florian Bob M.D. Measurements Intervals [place] Rate: 114 P: NE: QRS: 81 QRSD: 126 T: 90 QT: 331 QTc: 457 Interpretive Statements ATRIAL FIBRILLATION WITH RAPID VENTRICULAR RESPONSE POSSIBLE ANTERIOR MYOCARDIAL INFARCTION , OF INDETERMINATE AGE [30 ms Q WAVE IN V3/V4, OR R < 0.2 mV IN V4] Compared to ECG 10/18/2020 10:06:22 Myocardial infarct finding now present Left bundle-branch block no longer present Electronically Signed On 07-25-2021 0:03:01 POLITICAL REPORTER by Florian Bob M.D. [id number]
[2021-07-24 13:18] LABS: ABG PCO2 36.4 mmHg (35-45); ABG PH Result 7.49 (7.35-7.45); Alveolar-Arterial Oxygen Gradi 6.5 mmHg (5-10); Arterial Blood Gas Hematocrit 46.2 % (42-52); Base Excess ABG 4.2 mmol/L (-2.0-2.0); Blood Gas Operator Identificat ED; Blood Gas Sample Site Brachial, left; Blood Gas Sample Type Arterial; Carboxyhemoglobin 0.8 %THgb (0.4-20.1); HCO3 ABG 27.6 mmol/L (22-26); HGB O2 Sat 96.4 % (95-100); Ionized Calcium Level - ABG 1.3 mmol/L (1.1-1.4); Methemoglobin 1.1 % (0.4-1.5); Oxygen Device NC; Oxygen Saturation ABG 98.3; PO2 ABG 99.5 mmHg (80.0-100.0); Total Hemoglobin 15.1 g/dL (14-18)
[2021-07-24 13:28] VITALS: BP 104/78; PULSE 147; RESP 18; O2SAT 96
[2021-07-24 13:56] LABS: Basophils # 0.2 10^3/uL (0.0-0.1); Basophils % 0.9 %; Eosinophils % 0.2 %; Hematocrit 45.3 % (42.0-52.0); Hemoglobin 14.8 g/dL (11.7-16.6); Lymphocytes % 11.2 %; Mean Corpuscular HGB Conc 32.7 g/dL (30.0-36.0); Mean Corpuscular Hemoglobin 28.6 pg (28.0-34.0); Mean Corpuscular Volume 87.6 fl (80-94); Mean Platelet Volume 11.5 fL (7.4-10.4); Monocytes # 2.7 10^3/uL (0.2-0.9); Monocytes % 15.8 %; Neutrophils % 70.3 %; Nucleated Red Blood Cells % 0 %; Platelet Count 221 10^3/cmm (130-400); Red Blood Count 5.17 10^6/uL (4.1-5.3); Red Cell Distribution Width 15.3 % (12.1-15.1); White Blood Count 17.4 10^3/uL (4.0-10.0)
[2021-07-24] MEDS: metoprolol succinate ER (24 HR) 25 mg Tablet PO (14:17)
[2021-07-24] MEDS: metoprolol tartrate 1 mg/1 mL SDV 5 mL 5 MG IVP (14:17)
[2021-07-24 14:43] LABS: Alanine Aminotransferase 18 U/L (0-41); Albumin Level 3.8 g/dL (3.5-5.2); Alkaline Phosphatase 106 IU/L (40-130); Anion Gap 18.3 (5-19); Aspartate Amino Transferase 15 U/L (0-40); Blood Urea Nitrogen 24 mg/dL (8-23); Calcium 9.7 mg/dL (8.5-10.5); Carbon Dioxide 25 mmol/L (22-29); Chloride 100 mmol/L (98-107); Globulin 3.1 g/dL (1.3-4.6); Glucose 114 mg/dL (65-115); Osmolality Calculated 293 mOsm/kg (285-295); Potassium 4.3 mmol/L (3.5-5.1); Sodium 139 mmol/L (136-145); Total Bilirubin 0.4 mg/dL (0.15-1.2); Total Protein 6.9 g/dL (6.6-8.7)
[2021-07-24 14:44] LABS: Troponin(5th) Baseline 14 ng/L (0-15)
[2021-07-24 16:28] VITALS: BP 123/70; PULSE 81; RESP 18; O2SAT 97
--- NOTE | 2021-07-24 16:28 | PC.NURSE ---
reviewed discharge instructions with patient and spouse, bother verbalize understanding of all instructions, med changes, additional tests and follow appts. pt amb from the ED with home oxygen in place
[2021-07-24 16:30] LABS: Troponin 5 2HR 14.22 ng/L (0-15); Troponin 5 2HR Delta 0.22 ABS# (0-10)
--- NOTE | 2021-07-25 09:37 | DCPLANNER ---
bookkeeping manager had message to schedule an outpatient 48 hour halter monitor with [facility]. bookkeeping manager faxed signed order to [facility], who will call patient with appointment information.
--- NOTE | 2021-08-02 15:35 | DCPLANNER ---
Addendum entered by Madison Wilson 08/24/21 15:49: Patient had a follow up appointment scheduled for 08.08.21 with [facility] - patient did attend appointment. Original Note: Patient has an appointment scheduled for Sunday, August 08, 2021 at 1:[facility] a 48 hour halter monitor. Clinic will call patient with appointment information.
== END 2021-07-24 16:29 | disposition home or self-care (01) ==
PROVIDERS: Emergency Provider Family Medicine; PCP Nurse Practitioner Family
DX: J44.9 Chronic obstructive pulmonary disease, unspecified (principal); I48.91 Unspecified atrial fibrillation; Z79.01 Long term (current) use of anticoagulants; Z79.84 Long term (current) use of oral hypoglycemic drugs; I11.0 Hypertensive heart disease with heart failure; I50.9 Heart failure, unspecified; E13.9 Other specified diabetes mellitus without complications; E78.5 Hyperlipidemia, unspecified; Z87.891 Personal history of nicotine dependence
CPT/HCPCS: 36600; 71045; 80051; 80053; 82330; 82805; 84484; 85025; 93005; 96374; 99283; J3490

== ENCOUNTER 2021-07-29 11:42 | Observation (INO) | payer OTHER, MEDICARE, SELFPAY ==
[2021-07-29] VITALS (11 sets, daily range): BP systolic 123–179; BP diastolic 63–80; PULSE 0–114; RESP 16–28; TEMP 36.8–37.9; O2SAT 94–98; BMI 22.8; BMI 23.5
--- NOTE | 2021-07-29 12:10 | ED_ITS ---
HPI - SOB/Dyspnea General: Chief Complaint: Shortness of Breath/Dyspnea Stated Complaint: Fevor, AFIB, feels like lungs are hurting Time Seen by Provider: 07/29/21 12:09 History of Present Illness: HPI Narrative: Mr. Sultana is a 76-year-old gentleman with history of hypertension, hyperlipidemia, diabetes, COPD with chronic hypoxic respiratory failure on 4 L at baseline, atrial fibrillation on anticoagulation who presents emergency department due to shortness of breath, fever, and chest pain. He was seen on 07/24 and at that time had a few weeks of worsening symptoms. He was noted to be tachycardic and medications were adjusted including decreasing amlodipine and increasing metoprolol at that time. He reports since that time he has had continued symptoms though perhaps worsening. Intensity is moderate and worse with exertion. He describes sharp l eft posterior and mild anterior chest pressure. Additionally he has palpitations and subjective fever/chills. Overall the course of symptoms has worsened. He otherwise denies focal source of infection. He has been compliant with his medication regimen and has not missed any doses of Eliquis. No other specific changes in health, exacerbating, or alleviating factors identified. Review of Systems General: Reports: 10 or more systems reviewed and unremarkable except in HPI and below PFSH ED PFSH: Medical History ASHD (arteriosclerotic heart disease) Atrial fibrillation BPH (benign prostatic hyperplasia) Carotid stenosis, bilateral CHF (congestive heart failure) CKD (chronic kidney disease) COPD (chronic obstructive pulmonary disease) Diabetes 1.5, managed as type 2 Fracture of second metatarsal bone GERD (gastroesophageal reflux disease) History of 2019 novel coronavirus disease (COVID-19) (~07/2020) History of echocardiogram (~11/2019) EF 50-55%, no valvular abnormalities, normal pulmonary pressures History of nonmelanoma skin cancer HTN (hypertension) Hyperlipidemia LBBB (left bundle branch block) MOSHE (obstructive sleep apnea) Bipap 09/03 Osteoporosis alendronate RLS (restless legs syndrome) Surgical History S/P carotid endarterectomy S/P carpal tunnel release S/P sinus surgery Family History Mother , AGE 64 Diabetes Cancer Father , AGE 62 CAD (coronary artery disease) Social History Smoking and tobacco status: former smoker Quit status (tobacco): has quit using tobacco Year quit tobacco: 1999 [id number] Second hand smoke exposure: No Smoking risk assessment/counseling performed?: Yes Alcohol intake: never Lives independently: Yes Household members: spouse Housing: House Marital status: service: Yes branch: [employer] Current occupational status: retired Pets and animals: No History of recent travel: No Current gender identity: Male Physical Exam Narrative: EXAM NARRATIVE: GENERAL/CONSTITUTIONAL - mildly ill-appearing. Eyes -no scleral icterus, no conjunctival injection ENMT - Atraumatic external nose and ears. Moist mucous membranes NECK - supple. trachea midline CARDIOVASCULAR - irregular rhythm and tachycardic rate. Normal peripheral perfusion. No significant peripheral edema. RESPIRATORY - diminished to auscultation bilaterally. Tachypnea with supple mental oxygen requirement, hypoxia without supplemental oxygen. ABDOMEN/GI - Nontender/Nondistended. MSK - Extremities without obvious deformity or tenderness to palpation SKIN - Warm, Dry NEURO - alert and appropriately oriented. Moves all extremities equally. Course ED course: - Patient was seen and evaluated by me at bedside - Patient placed on cardiac monitors, IV access obtained - Initial evaluation notable for ill appearance, afebrile with mild tachycardia. - Labs notable for leukocytosis. Normal hemoglobin. Metabolic panel with mild evidence of dehydration. 2-hour troponin is intermediate range. CRP and procalcitonin elevated. - Imaging notable for chronic changes - Patient reports completion of a prescription for steroids and Levaquin approximately 4 days ago. As such, in combination with the patient's reported symptoms which likely point to a pulmonary etiology of infection as well as elevated procalcitonin IV antibiotics are warranted. - Upon serial reexamination after treatment the patient was only minimally improved - Based on patient history, evaluation, labs, and imaging as interpreted the most likely cause of the patient's condition is pneumonia with COPD exacerbation - The results of ED evaluation were discussed with the patient including plan for admission due to pneumonia with COPD exacerbation in the context of recent antibiotic use and he essentially failed outpatient therapy as well as requirement for level of care not available if discharged to prevent significant worsening/deterioration. - Hospitalist service contacted and agreed admit patient - Patient was admitted without further deterioration or significant events. Vital Signs: Vital signs: Vital Signs Temperature 98 F 07/31/21 15:27 Pulse Rate 72 07/31/21 15:27 Respiratory Rate 17 07/31/21 15:27 Blood Pressure 124/68 07/31/21 15:27 Pulse Oximetry 97 07/31/21 15:27 MDM - SOB/Dyspnea MDM Narrative: Medical decision making narrative: Patient presents with respiratory symptoms concerning for combination of COPD exacerbation and/or pneumonia. Leukocytosis, tachycardia present. Recently completed a course of antibiotics (Levaquin) and despite this had recurrence. Patient therefore requires inpatient management with IV antibiotics. Medical Records: Attestation: I reviewed the patient's medical records. Lab Data: Attestation: I reviewed the patient's lab results. Labs: Lab Results 07/29/21 07/29/21 07/29/21 12:22 12:27 12:32 WBC 23.5 10^3/uL H 10 ^3/uL (4.0-10.0) RBC 4.49 10^6/uL 10^6 /uL (4.1-5.3) Hgb 12.8 g/dL g/dL (11.7-16.6) Hct 39.1 % L % (42.0-52.0) MCV 87.1 fl fl (80-94) MCH 28.5 pg pg (28.0-34.0) MCHC 32.7 g/dL g/dL (30.0-36.0) RDW 14.6 % % (12.1-15.1) Plt Count 177 10^3/cmm 10^3 /cmm (130-400) MPV 11.6 fL H fL (7.4-10.4) Neut % (Auto) 85.9 % % Lymph % (Auto) 2.4 % % [place] % (Auto) 10.3 % % Eos % (Auto) 0.0 % % Baso % (Auto) 0.3 % % Neut # (Auto) 20.19 10^3/uL H 1 0^3/uL (1.8-7.7) Lymph # (Auto) 0.6 10^3/uL L 10^ 3/uL (0.8-4.8) [place] # (Auto) 2.4 10^3/uL H 10^ 3/uL (0.2-0.9) Eos # (Auto) 0.0 10^3/uL 10^3/ uL (0.0-0.8) Baso # (Auto) 0.1 10^3/uL 10^3/ uL (0.0-0.1) Nucleated RBC % (a uto) 0 % % Nucleated RBCs # 0.0 /100WBC /100W BC Specimen Type Arterial Sample Site Brachial, right ABG pH 7.46 H (7.35-7.45) ABG pCO2 36.1 mmHg mmHg (35-45) ABG pO2 133.0 mmHg H mmHg (80.0-100.0) ABG HCO3 25.6 mmol/L mmol/ L (22-26) ABG Base Excess 1.9 mmol/L mmol/L (-2.0-2.0) Mariano Test N/a Hematocrit 37.7 % L % (42-52) O2 Delivery Device Nc O2 Liters/Min 4.0 % % FiO2 36.0 % % Hospice Home Care Coordinator ID Ed Sodium Potassium Chloride Carbon Dioxide Anion Gap BUN Creatinine GFR Calculation Glucose Estimat Average Gl ucose Hemoglobin A1c Calculated Osmolal ity Lactic Acid 1.2 mmol/L mmol/L (0.5-2.2) Calcium Magnesium Total Bilirubin AST ALT Alkaline Phosphata se Troponin T Baselin e Troponin T [address] [place] Troponin T C-Reactive Protein NT-Pro-B Natriuret Pep Total Protein Albumin Globulin Procalcitonin TSH 07/29/21 07/29/21 07/29/21 12:32 12:32 12:32 WBC RBC Hgb Hct MCV MCH MCHC RDW Plt Count MPV Neut % (Auto) Lymph % (Auto) [place] % (Auto) Eos % (Auto) Baso % (Auto) Neut # (Auto) Lymph # (Auto) [place] # (Auto) Eos # (Auto) Baso # (Auto) Nucleated RBC % (a uto) Nucleated RBCs # Specimen Type Sample Site ABG pH ABG pCO2 ABG pO2 ABG HCO3 ABG Base Excess Mariano Test Hematocrit O2 Delivery Device O2 Liters/Min FiO2 Hospice Home Care Coordinator ID Sodium 132 mmol/L L mmol /L (136-145) Potassium 4.4 mmol/L mmol/L (3.5-5.1) Chloride 95 mmol/L L mmol/ L (98-107) Carbon Dioxide 21 mmol/L L mmol/ L (22-29) Anion Gap 20.4 H (5-19) BUN 17 mg/dL mg/dL (8-23) Creatinine 0.9 mg/dL mg/dL (0.7-1.2) GFR Calculation Not Reportable Glucose 172 mg/dL H mg/dL (65-115) Estimat Average Gl ucose 157 Hemoglobin A1c 7.1 % H % (4.0-6.0) Calculated Osmolal ity 280 mOsm/kg L mOs m/kg (285-295) Lactic Acid Calcium 8.6 mg/dL mg/dL (8.5-10.5) Magnesium 1.6 mg/dL L mg/dL (1.7-2.3) Total Bilirubin 0.7 mg/dL mg/dL (0.15-1.2) AST 25 U/L U/L (0-40) ALT 41 U/L U/L (0-41) Alkaline Phosphata se 169 IU/L H IU/L (40-130) Troponin T Baselin e 18 ng/L H ng/L (0-15) Troponin T [address] [place] Troponin T C-Reactive Protein 254.3 mg/L H mg/L (0.0-4.9) NT-Pro-B Natriuret Pep 664 pg/mL H pg/mL (0-450) Total Protein 6.8 g/dL g/dL (6.6-8.7) Albumin 3.2 g/dL L g/dL (3.5-5.2) Globulin 3.6 g/dL g/dL (1.3-4.6) Procalcitonin 0.52 ng/mL H ng/m L (0-0.5) TSH 0.47 uIU/mL uIU/m L (0.27-4.20) 07/29/21 14:35 WBC RBC Hgb Hct MCV MCH MCHC RDW Plt Count MPV Neut % (Auto) Lymph % (Auto) [place] % (Auto) Eos % (Auto) Baso % (Auto) Neut # (Auto) Lymph # (Auto) [place] # (Auto) Eos # (Auto) Baso # (Auto) Nucleated RBC % (a uto) Nucleated RBCs # Specimen Type Sample Site ABG pH ABG pCO2 ABG pO2 ABG HCO3 ABG Base Excess Mariano Test Hematocrit O2 Delivery Device O2 Liters/Min FiO2 Hospice Home Care Coordinator ID Sodium Potassium Chloride Carbon Dioxide Anion Gap BUN Creatinine GFR Calculation Glucose Estimat Average Gl ucose Hemoglobin A1c Calculated Osmolal ity Lactic Acid Calcium Magnesium Total Bilirubin AST ALT Alkaline Phosphata se Troponin T Baselin e Troponin T [address] [place] 22.22 ng/L H ng/L (0-15) Delta Troponin T 4.22 ABS# ABS# (0-10) C-Reactive Protein NT-Pro-B Natriuret Pep Total Protein Albumin Globulin Procalcitonin TSH EKG Data^: EKG 1: Attestation: I personally reviewed and interpreted this EKG as follows: EKG Interpretation Date: 07/29/21 EKG interpretation time: 12:00 Interpretation: Twelve-lead EKG shows an irregular rhythm at a rate of 122. NM interval not present. QRS duration 138, QTc 362. Normal axis. Interpretation: Atrial fibrillation. Left bundle branch block. EKG 2: Attestation: I personally reviewed and interpreted this EKG as follows: EKG Interpretation Date: 07/29/21 EKG interpretation time: 14:46 Interpretation: Twelve-lead EKG shows a regular rhythm at a rate of 100. NM interval 176, QRS duration 141, QTc 405. Normal axis. Interpretation: Sinus tachycardia. Left bundle branch block. EKG 3: Attestation: I personally reviewed and interpreted this EKG as follows: EKG Interpretation Date: 07/29/21 EKG interpretation time: 18:28 Interpretation: Twelve-lead EKG shows a regular rhythm at a rate of 77. NM interval 181, QRS duration 146, QTc 440. Normal axis. Interpretation: Sinus rhythm. Left bundle branch block. Discharge Plan Discharge Patient Disposition: Placed in Observation Admit Provider: Mahesh Gonzalez Discharge Diet: Diabetic Discharge Activity: Increase activity as tolerated Coding Level of Care Code ED Anodize Machine Operator for Robert Garcia
--- NOTE | 2021-07-29 12:16 | XRR_ITS ---
PROCEDURE INFORMATION: Exam: XR Chest Exam date and time: 07/29/2021 12:16 PM Age: 76 years old Clinical indication: Shortness of breath; Additional info: SOB, tachkeila TECHNIQUE: Imaging protocol: XR of the chest. Views: 1 view. Total images: 1 COMPARISON: CR XR chest 1V portable [id number] 07/24/2021 1:36 PM FINDINGS: Lungs: Hyperinflation with prominent interstitial markings suggesting COPD changes. Pleural spaces: Unremarkable. No pleural effusion. No pneumothorax. Heart/Mediastinum: Unremarkable. No cardiomegaly. Bones/joints: Osseous structures are unchanged from the prior exam. XR/XR chest 1V portable [id number] IMPRESSION: 1. Hyperinflation with prominent interstitial markings suggesting COPD changes. 2. No acute cardiopulmonary process.
--- NOTE | 2021-07-29 12:16 | ECG_ITS ---
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 Measurements Intervals [place] Rate: 122 P: 89 CT: 163 QRS: 81 QRSD: 138 T: 91 QT: 289 QTc: 413 Interpretive Statements Possible SINUS TACHYCARDIA INTRAVENTRICULAR CONDUCTION DELAY [130+ ms QRS DURATION] POSSIBLE ANTERIOR MYOCARDIAL INFARCTION , OF INDETERMINATE AGE [30 ms Q WAVE IN V3/V4, OR R < 0.2 mV IN V4] Compared to ECG 07/24/2021 13:17:26 Intraventricular conduction delay now present Atrial fibrillation no longer present Myocardial infarct finding still present Heavy baseline artifact Need to repeat Electronically Signed On 07-29-2021 20:20:53 KENO CLERK by Florian Bob M.D. [email or web address] Enterpriseskaiser [facility].[employer].tv/store/NU/[id number] f
[2021-07-29 12:37] LABS: ABG PCO2 36.1 mmHg (35-45); ABG PH Result 7.46 (7.35-7.45); Arterial Blood Gas Hematocrit 37.7 % (42-52); Base Excess ABG 1.9 mmol/L (-2.0-2.0); Blood Gas Operator Identificat ED; Blood Gas Sample Site Brachial, right; Blood Gas Sample Type Arterial; HCO3 ABG 25.6 mmol/L (22-26); Oxygen Device NC
[2021-07-29] MEDS: ipratropium-albuterol 3 mL Neb INHALATION (12:41)
[2021-07-29 12:46] LABS: Basophils # 0.1 10^3/uL (0.0-0.1); Basophils % 0.3 %; Hematocrit 39.1 % (42.0-52.0); Hemoglobin 12.8 g/dL (11.7-16.6); Lymphocytes # 0.6 10^3/uL (0.8-4.8); Lymphocytes % 2.4 %; Mean Corpuscular HGB Conc 32.7 g/dL (30.0-36.0); Mean Corpuscular Hemoglobin 28.5 pg (28.0-34.0); Mean Corpuscular Volume 87.1 fl (80-94); Mean Platelet Volume 11.6 fL (7.4-10.4); Monocytes # 2.4 10^3/uL (0.2-0.9); Monocytes % 10.3 %; Neutrophils # 20.19 10^3/uL (1.8-7.7); Neutrophils % 85.9 %; Nucleated Red Blood Cells % 0 %; Platelet Count 177 10^3/cmm (130-400); Red Blood Count 4.49 10^6/uL (4.1-5.3); Red Cell Distribution Width 14.6 % (12.1-15.1); White Blood Count 23.5 10^3/uL (4.0-10.0)
[2021-07-29 13:08] LABS: Troponin(5th) Baseline 18 ng/L (0-15)
[2021-07-29 13:15] LABS: NT Pro B Type Natriuretic Pept 664 pg/mL (0-450); Procalcitonin 0.52 ng/mL (0-0.5); Thyroid Stimulating Hormone 0.47 uIU/mL (0.27-4.20)
[2021-07-29 13:26] LABS: Alanine Aminotransferase 41 U/L (0-41); Albumin Level 3.2 g/dL (3.5-5.2); Alkaline Phosphatase 169 IU/L (40-130); Anion Gap 20.4 (5-19); Aspartate Amino Transferase 25 U/L (0-40); Blood Urea Nitrogen 17 mg/dL (8-23); C Reactive Protein 254.3 mg/L (0.0-4.9); Calcium 8.6 mg/dL (8.5-10.5); Carbon Dioxide 21 mmol/L (22-29); Chloride 95 mmol/L (98-107); Globulin 3.6 g/dL (1.3-4.6); Glucose 172 mg/dL (65-115); Magnesium 1.6 mg/dL (1.7-2.3); Osmolality Calculated 280 mOsm/kg (285-295); Potassium 4.4 mmol/L (3.5-5.1); Sodium 132 mmol/L (136-145); Total Bilirubin 0.7 mg/dL (0.15-1.2); Total Protein 6.8 g/dL (6.6-8.7)
[2021-07-29 13:57] LABS: Lactic Sepsis W/Reflex 1.2 mmol/L (0.5-2.2)
--- NOTE | 2021-07-29 14:16 | ECG_ITS ---
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 Measurements Intervals [place] Rate: 100 P: 54 IN: 176 QRS: 46 QRSD: 141 T: 69 QT: 348 QTc: 450 Interpretive Statements SINUS TACHYCARDIA LEFT BUNDLE BRANCH BLOCK [120+ ms QRS DURATION, 80+ ms Q/S IN V1/V2, 85+ ms R IN I/aVL/V5/V6] Compared to ECG 07/29/2021 11:54:13 Left bundle-branch block now present Intraventricular conduction delay no longer present Myocardial infarct finding no longer present Electronically Signed On 07-29-2021 20:22:46 HEAD TRANSFER CLERK by Florian Bob M.D. [email or web address] Systemswinston medical centerHeavycleveland clinic foundation.[facility]/store/OM/[id number]
[2021-07-29] MEDS: sodium chloride 0.9% 500 ML IV (14:45)
[2021-07-29] MEDS: sodium chloride 0.9% 500 ML 999 ML IV (14:46)
[2021-07-29] MEDS: piperacillin-tazobactam 4.5 GM in sodium chloride 0.9% (plus) 50 ML IV (14:46)
[2021-07-29] MEDS: acetaminophen 325 mg Tablet 650 MG PO (14:46)
[2021-07-29 15:41] LABS: Troponin 5 2HR 22.22 ng/L (0-15); Troponin 5 2HR Delta 4.22 ABS# (0-10)
--- NOTE | 2021-07-29 17:50 | P.HP_ITS ---
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 Patient was seen by an ER on 07/16/2021 for shortness of breath, productive cough, was given a steroid pack with Levaquin. Patient continues to complain of shortness of breath, shortness of breath with exertion, low-grade fevers, has received flu vaccine, has not received Covid vaccination he also complains of lower extremity edema, pleuritic-like chest discomfort. Denies a history of smoking, has history of severe COPD he tells me, no lightheadedness, dizziness, no nausea, no vomiting Review of Systems Const: Reports: fever(s) and fatigue; Denies: chills or malaise Eyes: Denies: change in vision ENMT: Denies: throat pain or nasal congestion Card: Reports: chest pain, palpitations and edema Resp: Reports: dyspnea and productive cough; Denies: non-productive cough or wheezing GI: Denies: abdominal pain, nausea, vomiting, hematemesis, diarrhea, constipation, hematochezia or melena : Denies: flank pain, difficulty urinating, dysuria or urinary frequency Musc: Denies: neck pain or back pain Skin/Breast: Denies: rash Neuro: Denies: headache(s), dizziness or vertigo Endo: Denies: polyuria or polydipsia Medications/Allergies Home Medications Medication Instructions Recorded Confirmed Last Taken Type alendronate 70 mg tablet 70 mg PO Q7D tab 08/23/19 07/29/21 07/29/21 History apixaban 5 mg tablet 5 mg PO BID@07,08/23/19 07/29/21 07/29/21 History atorvastatin 20 mg tablet 20 mg PO DAILY@08/23/19 07/29/21 07/28/21 History potassium chloride 20 meq PO DAILY@07 08/02/20 07/29/21 07/29/21 History Daliresp 500 mcg PO DAILY@07 10/16/20 07/29/21 07/29/21 History Trelegy Ellipta 1 inh INHALATION DAILY@08 10/16/20 07/29/21 07/29/21 History ascorbic acid (vitamin C) [Vitamin 500 mg PO DAILY #0 10/16/20 07/29/21 07/29/21 History C] calcium carbonate-vitamin D3 500 tab PO DAILY@07 10/16/20 07/29/21 07/29/21 History [Oyster Shell Calcium-Vit D3] cholecalciferol (vitamin D3) 75 mcg PO DAILY 10/16/20 07/29/21 07/29/21 History famotidine 20 mg PO DAILY 10/16/20 07/29/21 07/29/21 History furosemide 40 mg PO DAILY 10/16/20 07/29/21 07/29/21 History glimepiride 1 mg PO DAILY@07 10/16/20 07/29/21 07/29/21 History levalbuterol tartrate [Xopenex HFA] 1 puff INHALATION Q6H PRN #0 10/16/20 07/29/21 10/15/20 18:00 History ropinirole 0.25 mg PO BEDTIME 10/16/20 07/29/21 07/28/21 History tamsulosin 0.4 mg PO DAILY 10/16/20 07/29/21 07/29/21 History zinc 50 mg PO DAILY #0 10/16/20 07/29/21 07/29/21 History lisinopril 20 mg tablet 20 mg PO DAILY #30 tab 12/12/20 07/29/21 07/29/21 Rx amlodipine 5 mg PO DAILY #90 tab 07/24/21 07/29/21 07/29/21 Rx metoprolol succinate 75 mg PO DAILY #90 tab 07/24/21 07/29/21 07/29/21 Rx Allergies Allergy/AdvReac Type Severity Reaction Status Date / Time simvastatin AdvReac Intermediate ADR-Cramping Verified 06/05/21 10:22 of the Muscles PFSH Acute PFSH: Medical History ASHD (arteriosclerotic heart disease) Atrial fibrillation BPH (benign prostatic hyperplasia) Carotid stenosis, bilateral CHF (congestive heart failure) CKD (chronic kidney disease) COPD (chronic obstructive pulmonary disease) Diabetes 1.5, managed as type 2 Fracture of second metatarsal bone GERD (gastroesophageal reflux disease) History of 2019 novel coronavirus disease (COVID-19) (~07/2020) History of echocardiogram (~11/2019) EF 50-55%, no valvular abnormalities, normal pulmonary pressures History of nonmelanoma skin cancer HTN (hypertension) Hyperlipidemia LBBB (left bundle branch block) MOSHE (obstructive sleep apnea) Bipap 09/03 Osteoporosis alendronate RLS (restless legs syndrome) Surgical History S/P carotid endarterectomy S/P carpal tunnel release S/P sinus surgery Family History Mother , AGE 64 Diabetes Cancer Father , AGE 62 CAD (coronary artery disease) Social History Smoking and tobacco status: former smoker Quit status (tobacco): has quit using tobacco Year quit tobacco: 1999 [id number] Second hand smoke exposure: No Smoking risk assessment/counseling performed?: Yes Alcohol intake: never Lives independently: Yes Household members: spouse Housing: House Marital status: service: Yes branch: [employer] Current occupational status: retired Pets and animals: No History of recent travel: No Current gender identity: Male Vitals/I&O/Wt Last Vital Signs Temp 100.3 F H 07/29/21 11:56 Pulse 97 07/29/21 15:45 Resp 16 07/29/21 15:45 BP 150/64 07/29/21 15:45 Pulse Ox 96 07/29/21 15:45 Weight last 48 hrs Weight 74.389 kg Physical Exam Const: COMMON NORMALS: no acute distress and patient oriented x3 GENERAL APPEARANCE: cooperative and comfortable HENMT: COMMON NORMALS: normocephalic HEAD & SCALP: normocephalic Eye: COMMON NORMALS: Equal, round and reactive pupils present and EOMs intact bilaterally GENERAL EYE: appearance normal, both eyes and all related structures PUPIL: Yes Equal, round and reactive pupils present Neck/C-Spine: COMMON NORMALS: full ROM and no lymphadenopathy THYROID: Thyroid normal Lymph: LYMPHATIC: no lymphadenopathy noted Resp: COMMON NORMALS: normal respiratory effort, No retractions, No use of accessory muscles and clear to auscultation bilaterally AUSCULTATION: wheezes Cardio: COMMON NORMALS: no JVD, regular rate, regular rhythm, S1 normal heart sound present, S2 normal heart sound present, No gallops present (Cardio), No clicks present (Cardio) and No murmurs present (Cardio) RATE: regular rate RHYTHM: regular rhythm HEART SOUNDS: S1 normal heart sound present and S2 normal heart sound present GI: COMMON NORMALS: Normal to inspection, nondistended, normoactive bowel sounds present, Soft to palpation, non-tender and No hepatosplenomegaly present PALPATION: Yes Soft to palpation and Yes No hepatosplenomegaly present Extremity: COMMON NORMALS: normal to inspection and full ROM NARRATIVE EXTREMITY EXAM: Nonpitting edema Neuro: COMMON NORMALS: patient oriented x3, CN's II-XII intact bilaterally, moves all extremities and no focal motor deficits Psych: COMMON NORMALS: mental status grossly normal, Normal thought process present and cooperative THOUGHT PROCESS: Normal thought process present Data : 07/29/21 12:32 07/29/21 12:32 Micro: Microbiology 07/29/21 14:35 Blood Culture - Preliminary Blood SPECIMEN COLLECTED 07/29/21 13:40 Blood Culture - Preliminary Blood SPECIMEN COLLECTED A&P Assessment and plan (1) Pulmonary emphysema with fibrosis of lung: Status: Acute (2) On home oxygen therapy: Status: Acute (3) Heart failure with preserved ejection fraction: Status: Chronic Qualifiers: Heart failure chronicity: acute on chronic Qualified Code(s): I50.33 - Acute on chronic diastolic (congestive) heart failure (4) Anticoagulation adequate: Status: Chronic (5) Atrial fibrillation: No clinical evidence of A. fib with RVR, continue home metoprolol, continue Eliquis Status: Chronic (6) COPD (chronic obstructive pulmonary disease): Status: Chronic (7) ASHD (arteriosclerotic heart disease): Status: Chronic (8) CKD (chronic kidney disease): Status: Chronic (9) HTN (hypertension): Status: Chronic Qualifiers: Hypertension type: essential hypertension Qualified Code(s): I10 - Essential (primary) hypertension (10) MOSHE (obstructive sleep apnea): Continue home BiPAP Status: Chronic (11) Hyperlipidemia: Status: Chronic (12) Pneumonia: -With failure of outpatient antibiotics, has been on Levaquin -Low-grade fevers -Rapid Covid, rapid flu, Covid PCR -Broad-spectrum antibiotic therapy, vancomycin, cefepime, azithromycin -Monitor respiratory status -Follow blood cultures, sputum cultures, urine bacterial antigens Status: Acute (13) COPD exacerbation: -Continue BiPAP during the night -Continue Solu-Medrol -Budesonide, ipratropium Status: Acute (14) Diastolic CHF, acute on chronic: -Monitor BMP, monitor for fluid overload, continue Lasix 40 mg IV daily Status: Acute Additional A&P Information Pleuritic-like chest pain, atypical, serial EKGs, serial troponins, Attestations Medical Necessity Statement*: Patient requires hospitalization for pneumonia, COPD, diastolic CHF, outpatient with observation Coding Level of Care Code Acute Consultant Intern for [facility] Fwd Diagnoses Pulmonary emphysema with fibrosis of lung J43.9; J84.10 On home oxygen therapy Z99.81 Heart failure with preserved ejection fraction I50.33 Heart failure chronicity: acute on chronic Anticoagulation adequate Z79.01 Atrial fibrillation I48.91 COPD (chronic obstructive pulmonary disease) J44.9 ASHD (arteriosclerotic heart disease) I25.10 CKD (chronic kidney disease) N18.9 HTN (hypertension) I10 Hypertension type: essential hypertension MOSHE (obstructive sleep apnea) G47.33 Hyperlipidemia E78.5 Pneumonia J18.9 COPD exacerbation J44.1 Diastolic CHF, acute on chronic I50.33
[2021-07-29] MEDS: magnesium sulfate premix 2 GM/50 ML PIGGYBACK IV (18:06)
--- NOTE | 2021-07-29 18:16 | ECG_ITS ---
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 Measurements Intervals [place] Rate: 77 P: 75 DC: 181 QRS: 62 QRSD: 146 T: 77 QT: 408 QTc: 464 Interpretive Statements SINUS RHYTHM LEFT BUNDLE BRANCH BLOCK [120+ ms QRS DURATION, 80+ ms Q/S IN V1/V2, 85+ ms R IN I/aVL/V5/V6] Compared to ECG 07/29/2021 14:39:52 Sinus tachycardia no longer present Electronically Signed On 07-29-2021 20:25:23 STRIP POLISHER by Florian Bob M.D. [email or web address] [email or web address] mississippi medical centerMCK Communicationsnationwide children[facility]/store/OM/[id number]
[2021-07-29 19:04] LABS: Urine Appearance Clear (CLEAR); Urine Color Yellow (Yellow); pH Urine 5 (5-7)
[2021-07-29 19:05] LABS: Add Urine Microscopic? YES; Bilirubin Urine Neg (Negative); Blood Urine 2+ (Negative); Glucose Urine UA Norm (Normal); Ketones Urine 1+ (Negative); Leukocyte Esterase Urine Negative (Negative); Nitrate Urine Negative (Negative); Protein Urine Trace (Negative); Specific Gravity, Urine 1.015 (1.005-1.030); Urobilinogen Urine Norm (Negative)
[2021-07-29 19:06] LABS: Add Urine Culture? Yes; Bacteria Urine 2+ /hpf; RBC Urine 25-40 /hpf (0-2); Squamous Epithelial Cell Urine 0-4 /hpf (0-5)
[2021-07-29 19:20] LABS: Troponin 5 6HR 24.68 ng/L (0-15); Troponin 5 6HR Delta 6.68 ng/L (0-12)
[2021-07-29 19:29] LABS: C Reactive Protein 261.8 mg/L (0.0-4.9)
[2021-07-29] MEDS: famotidine 20 mg Tablet PO (21:59)
[2021-07-29] MEDS: atorvastatin 40 mg Tablet 20 MG PO (22:00)
[2021-07-29] MEDS: azithromycin 500 MG in sodium chloride 0.9% 250 ML 250 MG IV (22:00)
[2021-07-29] MEDS: ropinirole 0.25 mg Tablet PO (22:00)
[2021-07-29] MEDS: FUROsemide 10 mg/mL SDV 4mL 40 MG IVP (22:01)
[2021-07-29] MEDS: apixaban 5 mg Tablet PO (22:03)
[2021-07-29 22:08] LABS: Estmated Average Glucose 157; Hemoglobin A1C 7.1 % (4.0-6.0)
[2021-07-29 22:23] LABS: Influenza A by IFA Negative (Negative); Influenza B by IFA Negative (Negative)
[2021-07-29 23:52] LABS: Adenovirus Not Detected (NOT DETECT); Chlamydia Pneumoniae Not Detected (NOT DETECT); Coronavirus 229E,HKU1,NL63,OC4 Not Detected (NOT DETECT); Human Metapneumovirus Not Detected (NOT DETECT); Human Rhinovirus/Enterovirus Not Detected (NOT DETECT); Influenza A Not Detected (NOT DETECT); Influenza A H1 Not Detected (NOT DETECT); Influenza A H1-2009 Not Detected (NOT DETECT); Influenza A H3 Not Detected (NOT DETECT); Influenza B Not Detected (NOT DETECT); Mycoplasma Pneumoniae Not Detected (NOT DETECT); Parainfluenza Virus Type 1 Not Detected (NOT DETECT); Parainfluenza Virus Type 2 Not Detected (NOT DETECT); Parainfluenza Virus Type 3 Not Detected (NOT DETECT); Parainfluenza Virus Type 4 Not Detected (NOT DETECT); Respiratory Syncytial Virus A Not Detected (NOT DETECT); Respiratory Syncytial Virus B Not Detected (NOT DETECT); SARS-COV-2 Not Detected (NOT DETECT)
[2021-07-30] VITALS (13 sets, daily range): BP systolic 120–126; BP diastolic 66–71; PULSE 78–110; RESP 16–20; TEMP 36.4–37.2; O2SAT 94–97
[2021-07-30] MEDS: vancomycin 1,250 MG/250 ML PIGGYBACK 250 MG IV ×2 (03:06→14:45)
[2021-07-30] MEDS: apixaban 5 mg Tablet PO ×2 (06:10→21:38)
[2021-07-30] MEDS: cefepime 2,000 MG in sodium chloride 0.9% (plus) 50 ML 100 MG IV ×2 (06:10→17:08)
[2021-07-30] MEDS: potassium chloride ER 20 mEq Tablet PO (06:10)
[2021-07-30] MEDS: calcium carb-vit d 500mg-200unit 1 Tablet 1 EACH PO (06:12)
[2021-07-30 06:24] LABS: Basophils % 0.2 %; Hematocrit 35.2 % (42.0-52.0); Hemoglobin 11.4 g/dL (11.7-16.6); Lymphocytes # 0.5 10^3/uL (0.8-4.8); Lymphocytes % 2.2 %; Mean Corpuscular HGB Conc 32.4 g/dL (30.0-36.0); Mean Corpuscular Hemoglobin 28.6 pg (28.0-34.0); Mean Corpuscular Volume 88.4 fl (80-94); Mean Platelet Volume 11.7 fL (7.4-10.4); Monocytes # 0.5 10^3/uL (0.2-0.9); Monocytes % 2.4 %; Neutrophils # 20.87 10^3/uL (1.8-7.7); Neutrophils % 94.4 %; Nucleated Red Blood Cells % 0 %; Platelet Count 179 10^3/cmm (130-400); Red Blood Count 3.98 10^6/uL (4.1-5.3); Red Cell Distribution Width 14.7 % (12.1-15.1); White Blood Count 22.1 10^3/uL (4.0-10.0)
[2021-07-30 06:47] LABS: Glucose Point of Care 164 mg/dL (70-110)
[2021-07-30 06:48] LABS: Alanine Aminotransferase 30 U/L (0-41); Albumin Level 2.6 g/dL (3.5-5.2); Alkaline Phosphatase 151 IU/L (40-130); Blood Urea Nitrogen 15 mg/dL (8-23); Calcium 8.1 mg/dL (8.5-10.5); Carbon Dioxide 21 mmol/L (22-29); Chloride 100 mmol/L (98-107); Globulin 3.4 g/dL (1.3-4.6); Glucose 149 mg/dL (65-115); NT Pro B Type Natriuretic Pept 2168 pg/mL (0-450); Osmolality Calculated 284 mOsm/kg (285-295); Sodium 135 mmol/L (136-145); Total Bilirubin 0.6 mg/dL (0.15-1.2)
[2021-07-30 07:04] LABS: Anion Gap 18.3 (5-19); Aspartate Amino Transferase 23 U/L (0-40); Potassium 4.3 mmol/L (3.5-5.1)
[2021-07-30] MEDS: metoprolol succinate ER (24 HR) 50 mg Tablet 75 MG PO (07:57)
[2021-07-30] MEDS: famotidine 20 mg Tablet PO ×2 (07:57→17:09)
[2021-07-30] MEDS: zinc gluconate 50 mg Tablet PO (07:57)
[2021-07-30] MEDS: cholecalciferol (vitamin D3) 1,000 unit Tablet 3000 UNIT PO (07:57)
[2021-07-30] MEDS: amlodipine 5 mg Tablet PO (07:58)
[2021-07-30] MEDS: lisinopril 20 mg Tablet PO (07:58)
[2021-07-30] MEDS: ascorbic acid 500 mg Tablet PO (07:58)
[2021-07-30] MEDS: tamsulosin 0.4 mg Capsule PO (07:58)
[2021-07-30] MEDS: ipratropium-albuterol 3 mL Neb INHALATION ×4 (08:04→20:29)
[2021-07-30] MEDS: budesonide 0.5 mg/2 mL Neb INHALATION ×2 (08:05→20:29)
--- NOTE | 2021-07-30 10:33 | PC.CHAP ---
Pastoral Care Encounter/Spiritual Assessment Type of Contact [] Declined hide splitter visit [] Patient/Family/Request visit [] Outpatient visit [] Follow-up visit [] Physician referral [] Code/Alert [x] Routine visit [] Staff referral [] Actively dying [] Patient sleeping [] Family support [] [] Out of room [] Palliative care [] [] Receiving care in room [] Pre-surgical visit [] Trauma [] Long length of stay [] ICU visit [] Other: Relational/Emotional Strength [x] Patient feels connected with others/family/visitors/staff [] Distress [] Loneliness/isolation [] Abandonment Spirituality of Patient [x] Person of Shi [x] Attends Scientologist of their Shi [x] Believes in Prayer [x] Reads Bible or Catholic materials [] There are Spiritual issues to be addressed [employer] Interventions [x] Prayer [x]x Active listening [] Non-anxious presence [] Spiritual/emotional support [] Crisis/trauma care [] Spiritual counseling [] Bereavement support [] Provided bereavement packet [] Provided Bible/devotional materials [] Provided toy/stuffed animal, coloring book to patient or family member [] Provided Communion [] Anointing/[place] [] Salvation [x] Completed spiritual assessment [] Other: Impact on Illness or Injury [] Angry [] Fearful [] Anxious [] Often cries [] Exhaustion [] Unable to work [] Unable to attend buddhist [] Unable to walk/stand [] Unable to read [] Unable to drive [] Unable to eat/drink [] Unable to sleep [] Unable to be with family [] Patient intubated [] Other: Summary Time spent with patient 15 min
[2021-07-30 14:29] LABS: Vancomycin Trough 12.1 ug/mL (10-15)
--- NOTE | 2021-07-30 14:37 | PM.PN ---
Subjective Subjective: Interval history: Patient was seen and examined this morning, states that shortness of breath has slightly improved, still get winded with minimal exertion.His other vitals and labs have been reviewed. Medications: Medication Review Details: Generic Name Dose Route Start Last Admin Trade Name Cory PRN Reason Stop Dose Admin Albuterol/Ipratrop ium 3 ml 07/29/21 20:38 07/30/21 13:00 Ipratropium-Albu terol 3 Ml Neb INHALATION 3 ml QID.RESPIRATORY S CH Administration Amlodipine Besylat e 5 mg 07/30/21 09:00 07/30/21 07:58 Amlodipine 5 Mg Tablet PO 5 mg DAILY JANNETTE Administration Apixaban 5 mg 07/29/21 21:00 07/30/21 06:10 Apixaban 5 Mg Ta blet PO 5 mg BID@, JANNETTE Administration Ascorbic Acid 500 mg 07/30/21 09:00 07/30/21 07:58 Ascorbic Acid 50 0 Mg Tablet PO 500 mg DAILY JANNETTE Administration Atorvastatin Calci um 20 mg 07/29/21 21:00 07/29/21 22:00 Atorvastatin 40 Mg Tablet PO 20 mg DAILY@21 JANNETTE Administration Budesonide 0.5 mg 07/29/21 20:38 07/30/21 08:05 Budesonide 0.5 M g/2 Ml Neb INHALATION 0.5 mg BID.RESPIRATORY S CH Administration Calcium Carbonate 1 each 07/30/21 07:00 07/30/21 06:12 Calcium Carb-Vit D 500mg-200unit 1 Tablet PO 1 each DAILY@07 JANNETTE Administration Famotidine 20 mg 07/29/21 20:38 07/30/21 07:57 Famotidine 20 Mg Tablet PO 20 mg BID JANNETTE Administration Furosemide 40 mg 07/29/21 21:00 07/29/21 22:01 Furosemide 10 Mg /Ml Sdv 4ml IVP 40 mg Q24H JANNETTE Administration Cefepime HCl 2,000 mg/ Sodium 50 mls @ 100 mls/ hr 07/30/21 07:00 07/30/21 06:53 Chloride IV Infused Q12H JANNETTE Infusion Protocol Azithromycin 500 m g/ Sodium 250 mls @ 250 mls /hr 07/29/21 21:00 07/29/21 23:15 Chloride IV Infused Q24H JANNETTE Infusion Protocol Vancomycin/PEG/NAD A/Lysine/Water 1,250 mg in 250 m ls @ 250 mls/hr 07/30/21 03:00 07/30/21 04:10 Vancocin IV Infused Q12H JANNETTE Infusion Lisinopril 20 mg 07/30/21 09:00 07/30/21 07:58 Lisinopril 20 Mg Tablet PO 20 mg DAILY JANNETTE Administration Methylprednisolone Sodium Succinate 40 mg 07/29/21 21:00 07/30/21 07:58 Methylprednisolo ne Sod Succ 40 Mg/ Ml Inj IVP 40 mg Q12H JANNETTE Administration Metoprolol Succina te 75 mg 07/30/21 09:00 07/30/21 07:57 Metoprolol Succi alexandr Er (24 Hr) 50 Mg Tablet PO 75 mg DAILY JANNETTE Administration Potassium Chloride 20 meq 07/30/21 07:00 07/30/21 06:10 Potassium Chlori de Er 20 Meq Table t PO 20 meq DAILY@07 JANNETTE Administration Ropinirole HCl 0.25 mg 07/29/21 21:00 07/29/21 22:00 Ropinirole 0.25 Mg Tablet PO 0.25 mg BEDTIME JANNETTE Administration Tamsulosin HCl 0.4 mg 07/30/21 09:00 07/30/21 07:58 Tamsulosin 0.4 M g Capsule PO 0.4 mg DAILY JANNETTE Administration Vitamin D 3,000 unit 07/30/21 09:00 07/30/21 07:57 Cholecalciferol (Vitamin D3) 1,000 Unit Tablet PO 3,000 unit DAILY JANNETTE Administration Zinc Gluconate 50 mg 07/30/21 09:00 07/30/21 07:57 Zinc Gluconate 5 0 Mg Tablet PO 50 mg DAILY JANNETTE Administration Vitals/I&O/Wt Last Vital Signs Temp 98.8 F 07/30/21 11:27 Pulse 99 07/30/21 13:06 Resp 16 07/30/21 13:06 BP 124/71 07/30/21 11:27 Pulse Ox 95 07/30/21 13:06 07/29/21 07/30/21 07/30/21 22:59 06:59 14:59 Intake Total 1550 / 1550 1040 / 2590 600 / 600 Output Total 900 / 900 200 / 200 Balance 1550 / 1550 140 / 1690 400 / 400 Weight last 48 hrs Weight 78.29 kg Weight 76.402 kg Weight 74.389 kg Physical Exam Const: COMMON NORMALS: patient oriented x3 HENMT: COMMON NORMALS: normocephalic and atraumatic HEAD & SCALP: normocephalic and atraumatic Resp: OTHER: Minimal bilateral wheezing Cardio: COMMON NORMALS: regular rate, regular rhythm, S1 normal heart sound present, S2 normal heart sound present, No gallops present (Cardio), No murmurs present (Cardio), No rub (Cardio) and Peripheral pulses 2+ throughout RATE: regular rate RHYTHM: regular rhythm HEART SOUNDS: S1 normal heart sound present and S2 normal heart sound present PERIPHERAL PULSES: Peripheral pulses 2+ throughout GI: COMMON NORMALS: Normal to inspection, nondistended, normoactive bowel sounds present, Soft to palpation, non-tender, No hepatosplenomegaly present and no masses AUSCULTATION: Yes normoactive bowel sounds PALPATION: Yes Soft to palpation and Yes No hepatosplenomegaly present RECTAL EXAM: Yes deferred Extremity: COMMON NORMALS: no clubbing, cyanosis or edema and no pedal edema Neuro: COMMON NORMALS: patient oriented x3 Data : 07/30/21 05:56 07/30/21 05:56 Micro: Microbiology 07/29/21 13:40 Blood Culture - Preliminary Blood NEGATIVE TO DATE 07/29/21 18:00 Bacterial Antigens - Final Urine,Clean Catch 07/29/21 14:35 Blood Culture - Preliminary Blood SPECIMEN COLLECTED A&P Assessment and plan (1) Pulmonary emphysema with fibrosis of lung: Status: Acute (2) On home oxygen therapy: Status: Acute (3) Heart failure with preserved ejection fraction: Status: Chronic Qualifiers: Heart failure chronicity: acute on chronic Qualified Code(s): I50.33 - Acute on chronic diastolic (congestive) heart failure (4) Anticoagulation adequate: Status: Chronic (5) Atrial fibrillation: No clinical evidence of A. fib with RVR, continue home metoprolol, continue Eliquis Status: Chronic (6) COPD (chronic obstructive pulmonary disease): Status: Chronic (7) ASHD (arteriosclerotic heart disease): Status: Chronic (8) CKD (chronic kidney disease): Status: Chronic (9) HTN (hypertension): Status: Chronic Qualifiers: Hypertension type: essential hypertension Qualified Code(s): I10 - Essential (primary) hypertension (10) MOSHE (obstructive sleep apnea): Continue home BiPAP Status: Chronic (11) Hyperlipidemia: Status: Chronic (12) Pneumonia: -With failure of outpatient antibiotics, has been on Levaquin -Low-grade fevers -Rapid Covid, rapid flu, Covid PCR -Broad-spectrum antibiotic therapy, vancomycin, cefepime, azithromycin -Monitor respiratory status -Follow blood cultures, sputum cultures, urine bacterial antigens Status: Acute (13) COPD exacerbation: -Continue BiPAP during the night -Continue Solu-Medrol -Budesonide, ipratropium Status: Acute (14) Diastolic CHF, acute on chronic: -Monitor BMP, monitor for fluid overload, continue Lasix 40 mg IV daily Status: Acute Additional A&P Information Pleuritic-like chest pain, atypical, serial EKGs, serial troponins, Attestations Medical Necessity Statement*: Needs to be in hospital for management of above defined problems. 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 for g Fwd Exam Detailed Diagnoses Pulmonary emphysema with fibrosis of lung J43.9; J84.10 On home oxygen therapy Z99.81 Heart failure with preserved ejection fraction I50.33 Heart failure chronicity: acute on chronic Anticoagulation adequate Z79.01 Atrial fibrillation I48.91 COPD (chronic obstructive pulmonary disease) J44.9 ASHD (arteriosclerotic heart disease) I25.10 CKD (chronic kidney disease) N18.9 HTN (hypertension) I10 Hypertension type: essential hypertension MOSHE (obstructive sleep apnea) G47.33 Hyperlipidemia E78.5 Pneumonia J18.9 COPD exacerbation J44.1 Diastolic CHF, acute on chronic I50.33
[2021-07-30] MEDS: atorvastatin 40 mg Tablet 20 MG PO (21:38)
[2021-07-30] MEDS: ropinirole 0.25 mg Tablet PO (21:39)
[2021-07-30] MEDS: FUROsemide 10 mg/mL SDV 4mL 40 MG IVP (21:39)
[2021-07-30] MEDS: azithromycin 500 MG in sodium chloride 0.9% 250 ML 250 MG IV (21:39)
[2021-07-31] VITALS (7 sets, daily range): BP systolic 112–129; BP diastolic 57–68; PULSE 69–93; RESP 16–18; TEMP 36.6–36.8; O2SAT 93–99
[2021-07-31] MEDS: vancomycin 1,250 MG/250 ML PIGGYBACK 250 MG IV (03:32)
[2021-07-31 06:04] LABS: Basophils % 0.1 %; Hematocrit 33.7 % (42.0-52.0); Hemoglobin 10.8 g/dL (11.7-16.6); Lymphocytes # 0.5 10^3/uL (0.8-4.8); Lymphocytes % 3.7 %; Mean Corpuscular Hemoglobin 28.9 pg (28.0-34.0); Mean Corpuscular Volume 90.1 fl (80-94); Mean Platelet Volume 11.9 fL (7.4-10.4); Monocytes # 0.4 10^3/uL (0.2-0.9); Neutrophils # 13.08 10^3/uL (1.8-7.7); Neutrophils % 92.6 %; Nucleated Red Blood Cells % 0 %; Platelet Count 184 10^3/cmm (130-400); Red Blood Count 3.74 10^6/uL (4.1-5.3); Red Cell Distribution Width 14.6 % (12.1-15.1); White Blood Count 14.1 10^3/uL (4.0-10.0)
[2021-07-31] MEDS: apixaban 5 mg Tablet PO (06:15)
[2021-07-31] MEDS: cefepime 2,000 MG in sodium chloride 0.9% (plus) 50 ML 100 MG IV (06:15)
[2021-07-31] MEDS: calcium carb-vit d 500mg-200unit 1 Tablet 1 EACH PO (06:15)
[2021-07-31] MEDS: potassium chloride ER 20 mEq Tablet PO (06:15)
[2021-07-31 06:35] LABS: Alanine Aminotransferase 30 U/L (0-41); Albumin Level 2.6 g/dL (3.5-5.2); Alkaline Phosphatase 123 IU/L (40-130); Aspartate Amino Transferase 23 U/L (0-40); Blood Urea Nitrogen 31 mg/dL (8-23); Calcium 7.9 mg/dL (8.5-10.5); Carbon Dioxide 23 mmol/L (22-29); Chloride 100 mmol/L (98-107); Globulin 3.3 g/dL (1.3-4.6); Glucose 191 mg/dL (65-115); Osmolality Calculated 292 mOsm/kg (285-295); Phosphorus 2.6 mg/dL (2.5-4.5); Sodium 135 mmol/L (136-145); Total Bilirubin 0.2 mg/dL (0.15-1.2); Total Protein 5.9 g/dL (6.6-8.7)
[2021-07-31] MEDS: ipratropium-albuterol 3 mL Neb INHALATION (08:28)
[2021-07-31] MEDS: budesonide 0.5 mg/2 mL Neb INHALATION (08:28)
[2021-07-31] MEDS: zinc gluconate 50 mg Tablet PO (08:55)
[2021-07-31] MEDS: cholecalciferol (vitamin D3) 1,000 unit Tablet 3000 UNIT PO (08:55)
[2021-07-31] MEDS: ascorbic acid 500 mg Tablet PO (08:55)
[2021-07-31] MEDS: tamsulosin 0.4 mg Capsule PO (08:55)
[2021-07-31] MEDS: famotidine 20 mg Tablet PO (08:55)
[2021-07-31] MEDS: lisinopril 20 mg Tablet PO (08:55)
[2021-07-31] MEDS: metoprolol succinate ER (24 HR) 50 mg Tablet 75 MG PO (08:56)
[2021-07-31] MEDS: amlodipine 5 mg Tablet PO (08:56)
[2021-07-31 09:06] LABS: Glucose Point of Care 317 mg/dL (70-110)
--- NOTE | 2021-07-31 11:08 | PM.DCS ---
Discharge Providers Date of Admission: 07/29/21 17:16 Date of Discharge: July 31, 2021 Attending Provider at Admission: Mahesh Gonzalez MD Attending Provider at Discharge: Maximiliano Arteaga MD Primary Care Provider: Jina Hooper-Sergo Diagnoses at Discharge Discharge Diagnosis (1) Pulmonary emphysema with fibrosis of lung: Status: Acute (2) On home oxygen therapy: Status: Acute Permanent problem details: 4L (3) Heart failure with preserved ejection fraction: Status: Chronic Qualifiers: Heart failure chronicity: acute on chronic Qualified Code(s): I50.33 - Acute on chronic diastolic (congestive) heart failure (4) Anticoagulation adequate: Status: Chronic Permanent problem details: Eliquis (5) Atrial fibrillation: Status: Chronic (6) COPD (chronic obstructive pulmonary disease): Status: Chronic (7) ASHD (arteriosclerotic heart disease): Status: Chronic (8) CKD (chronic kidney disease): Status: Chronic (9) HTN (hypertension): Status: Chronic Qualifiers: Hypertension type: essential hypertension Qualified Code(s): I10 - Essential (primary) hypertension (10) MOSHE (obstructive sleep apnea): Status: Chronic Permanent problem details: Bipap 09/03 (11) Hyperlipidemia: Status: Chronic (12) Pneumonia: Status: Acute (13) COPD exacerbation: Status: Acute (14) Diastolic CHF, acute on chronic: Status: Acute Reason for Visit Reason for Visit: [place], AFIB, feels like lungs are hurting Hospital Course Hospital Course 75-year-old male with a past medical history of COPD, diastolic CHF, chronically on 4 L, on BiPAP at home, history of atrial fibrillation on Eliquis, hypertension, hyperlipidemia, CAD, bilateral carotid artery stenosis, CKD, type 2 diabetes, history of left bundle branch block, MOSHE, 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, who presents to [facility] due to shortness of breath, fever, productive cough.During this hospital stay was managed for COPD exacerbation, pneumonia, decompensated heart failure with preserved ejection fraction, kept on Broad spectrum IV antibiotics, IV steroids, duo nebs, IV diuresis, blood cultures were negative, urine bacterial antigen panel was negative, MRSA PCR was negative, Urine culture was negative, patient responded well to above medical management, at the time of discharge, he was at his baseline supplemental oxygen requirement, he was euvolemic, he has been discharged on p.o. Augmentin for another 7 days, his home medications has been continued.He responded well to above medical management and is being discharged in stable condition to home. Physical Exam Const: COMMON NORMALS: patient oriented x3 HENMT: COMMON NORMALS: normocephalic and atraumatic HEAD & SCALP: normocephalic and atraumatic Resp: EFFORT & INSPECTION: Yes symmetric chest movement OTHER: Diminished air entry B/L Cardio: COMMON NORMALS: regular rate, regular rhythm, S1 normal heart sound present, S2 normal heart sound present, No gallops present (Cardio), No murmurs present (Cardio), No rub (Cardio) and Peripheral pulses 2+ throughout RATE: regular rate RHYTHM: regular rhythm HEART SOUNDS: S1 normal heart sound present and S2 normal heart sound present PERIPHERAL PULSES: Peripheral pulses 2+ throughout GI: COMMON NORMALS: Normal to inspection, nondistended, normoactive bowel sounds present, Soft to palpation, non-tender, No hepatosplenomegaly present and no masses AUSCULTATION: Yes normoactive bowel sounds PALPATION: Yes Soft to palpation and Yes No hepatosplenomegaly present RECTAL EXAM: Yes deferred Extremity: COMMON NORMALS: no clubbing, cyanosis or edema and no pedal edema Neuro: COMMON NORMALS: patient oriented x3 Discharge Data Data Completed and Pending: Completed Studies During Hospitalization Category Date Time Status XR chest 1V daniel ble [id number] Urgent Exams 07/29/21 12:16 Completed Pending at discharge Category Date Time Status Blood Culture Sta t Lab 07/29/21 14:35 Results Complete Blood Co unt w/Auto AM LABS Lab 08/01/21 04:00 Ordered Comprehensive Met abolic Panel AM LA BS Lab 08/01/21 04:00 Ordered Magnesium AM LABS Lab 08/01/21 04:00 Ordered Phosphorus AM LAB S Lab 08/01/21 04:00 Ordered Sputum Culture an d Gram Stain Stat Lab 07/29/21 17:50 Uncollected Labs from last 24 hours 07/31/21 07/31/21 07/31/21 09:03 04:20 04:20 WBC 14.1 H RBC 3.74 L Hgb 10.8 L Hct 33.7 L MCV 90.1 MCH 28.9 MCHC 32.0 RDW 14.6 Plt Count 184 MPV 11.9 H Neut % (Auto) 92.6 Lymph % (Auto) 3.7 [place] % (Auto) 3.0 Eos % (Auto) 0.0 Baso % (Auto) 0.1 Neut # (Auto) 13.08 H Lymph # (Auto) 0.5 L [place] # (Auto) 0.4 Eos # (Auto) 0.0 Baso # (Auto) 0.0 Nucleated RBC % (a uto) 0 Nucleated RBCs # 0.0 Sodium 135 L Potassium 4.0 Chloride 100 Carbon Dioxide 23 Anion Gap 16.0 BUN 31 H Creatinine 1.0 GFR Calculation Not Reportable Glucose 191 H POC Glucose 317 H Calculated Osmolal ity 292 Calcium 7.9 L Phosphorus 2.6 Magnesium 2.0 Total Bilirubin 0.2 AST 23 ALT 30 Alkaline Phosphata se 123 Total Protein 5.9 L Albumin 2.6 L Globulin 3.3 Vancomycin Trough 07/30/21 13:47 WBC RBC Hgb Hct MCV MCH MCHC RDW Plt Count MPV Neut % (Auto) Lymph % (Auto) [place] % (Auto) Eos % (Auto) Baso % (Auto) Neut # (Auto) Lymph # (Auto) [place] # (Auto) Eos # (Auto) Baso # (Auto) Nucleated RBC % (a uto) Nucleated RBCs # Sodium Potassium Chloride Carbon Dioxide Anion Gap BUN Creatinine GFR Calculation Glucose POC Glucose Calculated Osmolal ity Calcium Phosphorus Magnesium Total Bilirubin AST ALT Alkaline Phosphata se Total Protein Albumin Globulin Vancomycin Trough 12.1 Vitals: Last Vital Signs Temp 97.9 F 07/31/21 07:19 Pulse 92 07/31/21 08:40 Resp 16 07/31/21 08:40 BP 129/67 07/31/21 07:19 Pulse Ox 93 07/31/21 08:40 Discharge Plan Discharge Patient Disposition: Home Condition: Stable Prescriptions: New prednisone 50 mg tablet 40 mg PO DAILY 7 Days Qty: 12 RF: 0 Augmentin 500-125 mg tablet 1 tab PO BID Qty: 14 RF: 0 Continued Eliquis 5 mg tablet 5 mg PO BID@,21 RF: 0 atorvastatin 20 mg tablet 20 mg PO DAILY@21 RF: 0 alendronate [Fosamax] 70 mg tablet 70 mg PO Q7D RF: 0 lisinopril 20 mg tablet 20 mg PO DAILY Qty: 30 RF: 3 potassium chloride 20 mEq Tablet Extended Release 20 meq PO DAILY@07 RF: 0 furosemide 40 mg tablet 40 mg PO DAILY RF: 0 glimepiride 2 mg tablet 1 mg PO DAILY@07 RF: 0 famotidine 20 mg tablet 20 mg PO DAILY RF: 0 tamsulosin 0.4 mg capsule 0.4 mg PO DAILY RF: 0 levalbuterol tartrate [Xopenex HFA] 45 mcg/actuation Hfa Aerosol Inhaler 1 puff INHALATION Q6H PRN (Reason: Shortness Of Breath) Qty: 0 RF: 0 calcium carbonate-vitamin D3 [Oyster Shell Calcium-Vit D3] 500 mg(1,250mg) -200 unit tablet 500 tab PO DAILY@07 RF: 0 cholecalciferol (vitamin D3) 75 mcg (3,000 unit) Tablet 75 mcg PO DAILY RF: 0 Daliresp 500 mcg Tablet 500 mcg PO DAILY@07 RF: 0 Trelegy Ellipta 100-62.5-25 mcg Blister With Device 1 inh INHALATION DAILY@08 RF: 0 ropinirole 0.25 mg Tablet 0.25 mg PO BEDTIME RF: 0 amlodipine 10 mg tablet 5 mg PO DAILY Qty: 90 RF: 1 metoprolol succinate 50 mg tablet extended release 24 hr 75 mg PO DAILY Qty: 90 RF: 3 Discontinued ascorbic acid (vitamin C) [Vitamin C] 500 mg Tablet 500 mg PO DAILY Qty: 0 RF: 0 zinc 50 mg Tablet 50 mg PO DAILY Qty: 0 RF: 0 Discharge Orders: Discharge Order (Routine); Ordered 07/31/21 Ordered By: Maximiliano Arteaga Referrals: Reagan Drew MD [Physician] - 08/15/21 10:00 am (APPOINTMENT WITH [facility] WITH DR DREW.) Jina Hooper FNP-C [Primary Care Provider] - 08/07/21 1:30 pm Discharge Diet: Diabetic Discharge Activity: Increase activity as tolerated Patient Instructions: Prednisone (By mouth), Amoxicillin/Clavulanate Potassium (By mouth), Heart Failure (GEN), COPD (Chronic Obstructive Pulmonary Disease) (GEN), Pneumonia (GEN), Opioid Safety, Pneumonia Stoplight Discharge Attestations Time Spent in Discharge Care*: less than 30 min Specific Discharge Activities: educating patient, educating and/or supporting family/caregiver, discussing with pcp/other providers, discussing with leather case finisher/social workers/dc planners, documenting/other paperwork and evaluating patient/reviewing data Status at Discharge: Cognitive status at discharge: cognitively intact, Behavioral status at discharge: cooperative, Functional status at discharge: independent ambulation Overall status at discharge: patient is back to baseline Quality Metrics Clinical Quality Measures During this hospital stay, did patient experience: None Coding Level of Care Code Acute Chg FW DC note Exam Detailed Diagnoses Pulmonary emphysema with fibrosis of lung J43.9; J84.10 On home oxygen therapy Z99.81 Heart failure with preserved ejection fraction I50.33 Heart failure chronicity: acute on chronic Anticoagulation adequate Z79.01 Atrial fibrillation I48.91 COPD (chronic obstructive pulmonary disease) J44.9 ASHD (arteriosclerotic heart disease) I25.10 CKD (chronic kidney disease) N18.9 HTN (hypertension) I10 Hypertension type: essential hypertension MOSHE (obstructive sleep apnea) G47.33 Hyperlipidemia E78.5 Pneumonia J18.9 COPD exacerbation J44.1 Diastolic CHF, acute on chronic I50.33
[2021-07-31 11:25] LABS: Glucose Point of Care 361 mg/dL (70-110)
[2021-07-31] MEDS: insulin lispro 100 unit/1 mL SUBCUT (13:06)
== END 2021-07-31 15:28 | disposition home or self-care (01) ==
LOC: ER 17:19 → MEDSURG 19:06
PROVIDERS: Admitting Provider Family Medicine; Emergency Provider Emergency Medicine; PCP Nurse Practitioner Family; Visit Provider Internal Medicine
DX: J18.9 Pneumonia, unspecified organism (principal); J43.9 Emphysema, unspecified; Z99.81 Dependence on supplemental oxygen; J84.10 Pulmonary fibrosis, unspecified; E13.22 Other specified diabetes mellitus with diabetic chronic kidney disease; I13.0 Hypertensive heart and chronic kidney disease with heart failure and stage 1 through stage 4 chronic kidney disease, or unspecified chronic kidney disease; N18.9 Chronic kidney disease, unspecified; I50.33 Acute on chronic diastolic (congestive) heart failure; Z79.01 Long term (current) use of anticoagulants; I48.91 Unspecified atrial fibrillation; I25.10 Atherosclerotic heart disease of native coronary artery without angina pectoris; G47.33 Obstructive sleep apnea (adult) (pediatric); E78.5 Hyperlipidemia, unspecified; K21.9 Gastro-esophageal reflux disease without esophagitis; Z86.16 Personal history of COVID-19; Z87.891 Personal history of nicotine dependence
CPT/HCPCS: 36415; 36416; 36600; 71045; 80053; 80202; 81001; 82803; 82962; 83036; 83605; 83735; 83880; 84100; 84145; 84443; 84484; 85025; 86140; 86403; 87040; 87086; 87635; 87641; 87804; 93005; 94640; 94660; 96365; 96367; 96372; 96375; 99285; G0378; J0456; J0692; J1815; J1940; J2543; J2920; J3370; J3475; J7040; J7050; J7626

== ENCOUNTER → 2021-10-17 12:19 | Outpatient (BNVA) | payer OTHER, SELFPAY | PROVIDERS: PCP Nurse Practitioner Family; Visit Provider Internal Medicine | DX: I25.10 Atherosclerotic heart disease of native coronary artery without angina pectoris (principal); I48.91 Unspecified atrial fibrillation; I44.7 Left bundle-branch block, unspecified; J44.9 Chronic obstructive pulmonary disease, unspecified; I13.0 Hypertensive heart and chronic kidney disease with heart failure and stage 1 through stage 4 chronic kidney disease, or unspecified chronic kidney disease; N18.9 Chronic kidney disease, unspecified; I50.9 Heart failure, unspecified; G47.33 Obstructive sleep apnea (adult) (pediatric); E78.5 Hyperlipidemia, unspecified; E13.9 Other specified diabetes mellitus without complications; I65.23 Occlusion and stenosis of bilateral carotid arteries; Z01.818 Encounter for other preprocedural examination; Z87.891 Personal history of nicotine dependence | CPT/HCPCS: 99214 ==

== ENCOUNTER 2021-12-07 09:09 | Outpatient (CLI) | payer OTHER, SELFPAY ==
--- NOTE | 2021-12-07 09:30 | CT_ITS ---
WS: [id number] CT CHEST WITHOUT INTRAVENOUS CONTRAST HISTORY: Follow up on lung nodule TECHNIQUE: Contiguous 5 mm axial imaging performed on the thorax. Coronal and sagittal reformats are submitted. All CT scans at [facility] use at least one of these dose optimization techniques: automated exposure control; mA and/or kV adjustment per patient size (includes targeted exams where dose is matched to clinical indication); or iterative reconstruction. CONTRAST: None DLP: 676.94 mGy.cm COMPARISON: PET/CT 12/14/2020, CT 10/15/2020 and 10/13/2019 Lungs and central airway: Marked pulmonary hyperinflation. Extensive bullous and bleb disease. Slight ly spiculated nodule measures 11 mm at the RIGHT apex. No increase in nodularity since the prior exam inations. Mild biapical pleural thickening. Marked interstitial and septal thickening at the lung bas es similar to the prior examinations. Pleura: Normal. No pleural effusion. Heart and pericardium: Normal size heart with no pericardial effusion. Mediastinum and elyse: No mediastinum or hilar adenopathy. Vessels: Moderate atherosclerotic plaque within the thoracic aorta. Normal size pulmonary artery. Chest wall and lower neck: No soft tissue masses. Upper abdomen: Exophytic cyst from the posterior LEFT kidney measures 1.6 x 1.4 cm. Heavy calcificati on in the suprarenal aorta and at the origins of the SMA and celiac axis. Cholelithiasis. Osseous structures: Increase in thoracic kyphosis with multilevel degenerative disc disease and vacuu m disc phenomenon. CT/CT chest wo con [id number] IMPRESSION: 1. Stable 11 mm spiculated nodule RIGHT upper lung. No change since 10/13/2019. 2. Severe emphysema with no additional suspicious nodules. 3. Cholelithiasis. 4. Moderate atherosclerotic changes throughout the thoracic aorta and supraren al aorta. Calcifications partially obstructing proximal celiac axis and SMA.
== END 2021-12-07 09:10 | disposition home or self-care (01) ==
LOC: RAD 09:10
PROVIDERS: PCP Nurse Practitioner Family; Visit Provider Internal Medicine Pulmonary Disease
DX: R91.1 Solitary pulmonary nodule (principal); J43.9 Emphysema, unspecified
CPT/HCPCS: 71250

== ENCOUNTER 2022-03-12 08:54 | Outpatient (CLI) | payer OTHER, MEDICARE, SELFPAY ==
--- NOTE | 2022-03-12 13:46 | PFTS_ITS ---
Date of Study:03/12/22 Date of Dictation: MECHANICS: Forced vital capacity (FVC) is reduced. Forced expiratory volume in one second (FEV1) is reduced. FEV1/FVC is reduced. FLOW VOLUME LOOP: Reduced lateral lung volumes with significant scooping. LUNG VOLUMES: Total lung capacity (TLC) is normal. Residual volume (RV) is increased. DIFFUSING CAPACITY FOR CARBON MONOXIDE: Severely reduced. INTERPRETATION: The postbronchodilator spirometry is consistent with very severe airflow obstruction. There is no significant postbronchodilator response. Lung volumes are consistent with air trapping. Gas exchange (DLCO) is severely reduced. MTDD
== END 2022-03-12 08:55 | disposition home or self-care (01) ==
LOC: RT 08:55
PROVIDERS: PCP Nurse Practitioner Family; Visit Provider Internal Medicine Pulmonary Disease
DX: J44.9 Chronic obstructive pulmonary disease, unspecified (principal)
CPT/HCPCS: 94060; 94618; 94726; 94729; J7611

== ENCOUNTER → 2022-04-17 12:15 | Outpatient (BNVA) | payer OTHER, SELFPAY | PROVIDERS: PCP Registered Nurse; Visit Provider Internal Medicine | DX: I25.10 Atherosclerotic heart disease of native coronary artery without angina pectoris (principal); I48.91 Unspecified atrial fibrillation; Z79.01 Long term (current) use of anticoagulants; I44.7 Left bundle-branch block, unspecified; J44.9 Chronic obstructive pulmonary disease, unspecified; I13.0 Hypertensive heart and chronic kidney disease with heart failure and stage 1 through stage 4 chronic kidney disease, or unspecified chronic kidney disease; E13.22 Other specified diabetes mellitus with diabetic chronic kidney disease; N18.9 Chronic kidney disease, unspecified; I50.33 Acute on chronic diastolic (congestive) heart failure; Z87.891 Personal history of nicotine dependence; Z79.84 Long term (current) use of oral hypoglycemic drugs; E78.5 Hyperlipidemia, unspecified; G47.33 Obstructive sleep apnea (adult) (pediatric); I65.23 Occlusion and stenosis of bilateral carotid arteries | CPT/HCPCS: 93005; 99214 ==

== ENCOUNTER 2022-04-18 13:38 | Emergency (ER) | payer OTHER, SELFPAY ==
[2022-04-18 13:40] VITALS: BP 198/86; PULSE 104; RESP 22; TEMP 36.6; O2SAT 94; BMI 23.0
--- NOTE | 2022-04-18 13:55 | ECG_ITS ---
[facility] Test Date: 2022-04-18 Pat Name: Jonathan Sultana Department: Room: Gender: Male Orthotist Prosthetist: : 1945 Requested By: Milka Perdomo Order Number: [id number] Alexey MD: Florian Bob M.D. Measurements Intervals [place] Rate: 88 P: 85 VA: 199 QRS: 59 QRSD: 134 T: 111 QT: 373 QTc: 452 Interpretive Statements SINUS RHYTHM WITH OCCASIONAL VENTRICULAR PREMATURE COMPLEXES LEFT BUNDLE BRANCH BLOCK [120+ ms QRS DURATION, 80+ ms Q/S IN V1/V2, 85+ ms R IN I/aVL/V5/V6] Compared to ECG 07/29/2021 18:23:26 Ventricular premature complex(es) now present Electronically Signed On 04-18-2022 20:44:23 CDT by Florian Bob M.D. [email or web address]
--- NOTE | 2022-04-18 14:15 | ED_ITS ---
HPI - General Adult General: Chief complaint: General Medical Stated complaint: afib Time Seen by Provider: 04/18/22 14:00 Source: patient Mode of arrival: ambulatory Limitations: no limitations History of Present Illness: 76-year-old male who has a history of A. fib states that he is also has a history of COPD he states he been having some chest pain since this morning states he did have palpitations thought he was in A. fib he states heart rate was in the 100 he has Slowed down now he is now in normal sinus rhythm states his pain has improved he denies any fever denies any vomiting denies any cough. Associated symptoms: Reports chest pain, dyspnea and palpitations; Deny headache(s), nausea, rash or vomiting Review of Systems Const: Denies: fever(s), chills, body aches or change in appetite Eyes: Denies: blurry vision or eye discomfort ENMT: Denies: throat pain or dental pain Card: Reports: chest pain and palpitations Resp: Reports: dyspnea GI: Denies: abdominal pain, nausea, vomiting or diarrhea : Denies: dysuria Musc: Denies: neck pain or back pain Skin/Breast: Denies: rash Neuro: Denies: headache(s) Psych: Denies: depression Frank/Lymph: Denies: easy bruising All/Imm: Denies: urticaria PFSH ED PFSH: Medical History Anticoagulation adequate Eliquis ASHD (arteriosclerotic heart disease) Atrial fibrillation BPH (benign prostatic hyperplasia) Carotid stenosis, bilateral CHF (congestive heart failure) CKD (chronic kidney disease) COPD (chronic obstructive pulmonary disease) COPD exacerbation Diabetes 1.5, managed as type 2 Diastolic CHF, acute on chronic Fracture of second metatarsal bone GERD (gastroesophageal reflux disease) Heart failure with preserved ejection fraction History of 2019 novel coronavirus disease (COVID-19) (~07/2020) History of echocardiogram (~11/2019) EF 50-55%, no valvular abnormalities, normal pulmonary pressures History of nonmelanoma skin cancer HTN (hypertension) Hyperlipidemia LBBB (left bundle branch block) On home oxygen therapy 4L MOSHE (obstructive sleep apnea) Bipap 09/03 Osteoporosis alendronate Pneumonia Pulmonary emphysema with fibrosis of lung RLS (restless legs syndrome) Surgical History S/P carotid endarterectomy S/P carpal tunnel release S/P sinus surgery Family History Mother , AGE 64 Diabetes Cancer Father , AGE 62 CAD (coronary artery disease) Social History Smoking and tobacco status: former smoker Quit status (tobacco): has quit using tobacco Year quit tobacco: 1999 [id number] Second hand smoke exposure: No Smoking risk assessment/counseling performed?: Yes Alcohol intake: never Lives independently: Yes Household members: spouse Housing: House Marital status: service: Yes branch: [employer] Current occupational status: retired Pets and animals: No History of recent travel: No Current gender identity: Male Physical Exam Const: COMMON NORMALS: no acute distress, patient oriented x3 and healthy appearing HENMT: COMMON NORMALS: normocephalic and atraumatic HEAD & SCALP: normocephalic and atraumatic Eye: COMMON NORMALS: Equal, round and reactive pupils present and EOMs intact bilaterally PUPIL: Yes Equal, round and reactive pupils present Neck/C-Spine: COMMON NORMALS: full ROM and supple Chest: COMMONS NORMALS: normal inspection of the chest and normal palpation of entire chest wall Resp: COMMON NORMALS: normal respiratory effort, No retractions, No use of accessory muscles and clear to auscultation bilaterally AUSCULTATION: clear to auscultation bilaterally Cardio: COMMON NORMALS: regular rate, regular rhythm and No murmurs present (Cardio) RATE: regular rate RHYTHM: regular rhythm GI: COMMON NORMALS: Normal to inspection, nondistended, normoactive bowel sounds present, Soft to palpation, non-tender and no masses PALPATION: Yes Soft to palpation Extremity: COMMON NORMALS: normal to inspection and full ROM Neuro: COMMON NORMALS: patient oriented x3, moves all extremities and no focal motor deficits Psych: COMMON NORMALS: mental status grossly normal, Normal thought process present and cooperative THOUGHT PROCESS: Normal thought process present Skin: COMMON NORMALS: no rashes or lesions noted and no wounds GENERAL SKIN EXAM: no rashes or lesions noted Course Vital Signs: Vital signs: Vital Signs Temperature 97.8 F 04/18/22 13:40 Pulse Rate 79 04/18/22 16:00 Respiratory Rate 20 H 04/18/22 16:00 Blood Pressure 202/89 04/18/22 16:00 Pulse Oximetry 100 04/18/22 16:00 Oxygen Delivery Me thod 04/18/22 16:00 Oxygen Flow Rate 5 04/18/22 16:00 MDM - General Adult Medical Decision Making Patient presents here with chest pain that is atypical in nature his initial repeat troponin here is normal he is not in A. fib here he is to monitor his blood pressure follow-up with Dr. Murphy and return if worsening he understands agrees to plan. Lab Data : 04/18/22 14:13 04/18/22 14:13 Laboratory Results WBC 11.3 10^3/uL (4.0-10.0) H 04/18/22 14:13 RBC 4.93 10^6/uL (4.1-5.3) 04/18/22 14:13 Hgb 13.6 g/dL (11.7-16.6) 04/18/22 14:13 Hct 44.0 % (42.0-52.0) 04/18/22 14:13 MCV 89.2 fl (80-94) 04/18/22 14:13 MCH 27.6 pg (28.0-34.0) L 04/18/22 14:13 MCHC 30.9 g/dL (30.0-36.0) 04/18/22 14:13 RDW 15.1 % (12.1-15.1) 04/18/22 14:13 Plt Count 190 10^3/cmm (130-400) 04/18/22 14:13 MPV 11.4 fL (7.4-10.4) H 04/18/22 14:13 Neut % (Auto) 70.7 % 04/18/22 14:13 Lymph % (Auto) 15.8 % 04/18/22 14:13 [place] % (Auto) 10.1 % 04/18/22 14:13 Eos % (Auto) 2.1 % 04/18/22 14:13 Baso % (Auto) 0.9 % 04/18/22 14:13 Neut # (Auto) 8.02 10^3/uL (1.8-7.7) H 04/18/22 14:13 Lymph # (Auto) 1.8 10^3/uL (0.8-4.8) 04/18/22 14:13 [place] # (Auto) 1.2 10^3/uL (0.2-0.9) H 04/18/22 14:13 Eos # (Auto) 0.2 10^3/uL (0.0-0.8) 04/18/22 14:13 Baso # (Auto) 0.1 10^3/uL (0.0-0.1) 04/18/22 14:13 Nucleated RBC % (auto) 0 % 04/18/22 14:13 Nucleated RBCs # 0.0 /100WBC 04/18/22 14:13 Sodium 135 mmol/L (136-145) L 04/18/22 14:13 Potassium 4.1 mmol/L (3.5-5.1) 04/18/22 14:13 Chloride 98 mmol/L (98-107) 04/18/22 14:13 Carbon Dioxide 26 mmol/L (22-29) 04/18/22 14:13 Anion Gap 15.1 (5-19) 04/18/22 14:13 BUN 24 mg/dL (8-23) H 04/18/22 14:13 Creatinine 1.2 mg/dL (0.7-1.2) 04/18/22 14:13 GFR Calculation Not Reportable 04/18/22 14:13 Glucose 189 mg/dL (65-115) H 04/18/22 14:13 Calculated Osmolality 289 mOsm/kg (285-295) 04/18/22 14:13 Calcium 9.6 mg/dL (8.5-10.5) 04/18/22 14:13 Total Bilirubin 0.3 mg/dL (0.15-1.2) 04/18/22 14:13 AST 23 U/L (0-40) 04/18/22 14:13 ALT 30 U/L (0-41) 04/18/22 14:13 Alkaline Phosphatase 136 U/L (40-130) H 04/18/22 14:13 Troponin T Baseline 12 ng/L (0-15) 04/18/22 14:13 Troponin T 120 Minute 16.74 ng/L (0-15) H 04/18/22 15:49 Delta Troponin T 4.74 ABS# (0-10) 04/18/22 15:49 Total Protein 7.4 g/dL (6.6-8.7) 04/18/22 14:13 Albumin 3.5 g/dL (3.5-5.2) 04/18/22 14:13 Globulin 3.9 g/dL (1.3-4.6) 04/18/22 14:13 EKG Data EKG 1: I personally reviewed and interpreted this EKG as follows: EKG interpretation date: 04/18/22 EKG interpretation time: 13:55 Interpretation: nsr hr [address] elevation lbbb qrs 134 qtc 418 Discharge Plan Discharge Patient Disposition: Home Clinical Impression: Chest pain Condition: Stable Prescriptions: No Action Eliquis 5 mg tablet 5 mg PO BID@07,21 atorvastatin 20 mg tablet 20 mg PO DAILY@21 alendronate [Fosamax] 70 mg tablet 70 mg PO Q7D Rx Instructions: ON SUNDAYS Jardiance 10 mg tablet 10 mg PO DAILY ascorbic acid (vitamin C) 500 mg capsule 500 mg PO BID Galzin 50 mg (zinc) capsule 50 mg PO DAILY guaifenesin [Mucinex] 600 mg tablet extended release 12hr 600 mg PO Q12H PRN (Reason: congestion) Qty: 30 3RF lisinopril 10 mg tablet 10 mg PO DAILY Qty: 90 3RF Yupelri 175 mcg/3 mL solution for nebulization 175 mcg inhalation DAILY Qty: 90 3RF budesonide [Pulmicort] 0.25 mg/2 mL suspension for nebulization 0.5 mg inhalation BID Qty: 10 3RF arformoterol 15 mcg/2 mL solution for nebulization 2 ml inhalation BID 30 Days Qty: 120 4RF potassium chloride 20 mEq Tablet Extended Release 20 meq PO DAILY@07 glimepiride 2 mg tablet 1 mg PO DAILY@07 famotidine 20 mg tablet 20 mg PO DAILY tamsulosin 0.4 mg capsule 0.4 mg PO DAILY levalbuterol tartrate [Xopenex HFA] 45 mcg/actuation Hfa Aerosol Inhaler 1 puff INHALATION Q6H PRN (Reason: Shortness Of Breath) Qty: 0 calcium carbonate-vitamin D3 [Oyster Shell Calcium-Vit D3] 500 mg(1,250mg) - 200 unit tablet 500 tab PO DAILY@07 Daliresp 500 mcg Tablet 500 mcg PO DAILY@07 ropinirole 0.25 mg Tablet 0.25 mg PO BEDTIME Rx Instructions: if symptoms persist - may increase furosemide 40 mg tablet 20 mg PO DAILY cholecalciferol (vitamin D3) 75 mcg (3,000 unit) tablet 50 mcg PO DAILY metoprolol succinate 50 mg tablet extended release 24 hr 75 mg PO DAILY Qty: 90 3RF Discharge Orders: Discharge ED (Routine); Ordered 04/18/22 Ordered By: Milka Perdomo Referrals: Luis Cordova CPNP [Primary Care Provider] - Discharge Diet: Advance as tolerated Discharge Activity: Resume usual activity Patient Instructions: Chest Pain (ED) Coding Level of Care Code ED Vegetable Farming Supervisor for Robert Fwd Exam Comprehensive
[2022-04-18 14:18] VITALS: BP 166/79; PULSE 80; RESP 18; O2SAT 100
[2022-04-18 14:25] LABS: Basophils # 0.1 10^3/uL (0.0-0.1); Basophils % 0.9 %; Eosinophils # 0.2 10^3/uL (0.0-0.8); Eosinophils % 2.1 %; Hemoglobin 13.6 g/dL (11.7-16.6); Lymphocytes # 1.8 10^3/uL (0.8-4.8); Lymphocytes % 15.8 %; Mean Corpuscular HGB Conc 30.9 g/dL (30.0-36.0); Mean Corpuscular Hemoglobin 27.6 pg (28.0-34.0); Mean Corpuscular Volume 89.2 fl (80-94); Mean Platelet Volume 11.4 fL (7.4-10.4); Monocytes # 1.2 10^3/uL (0.2-0.9); Monocytes % 10.1 %; Neutrophils # 8.02 10^3/uL (1.8-7.7); Neutrophils % 70.7 %; Nucleated Red Blood Cells % 0 %; Platelet Count 190 10^3/cmm (130-400); Red Blood Count 4.93 10^6/uL (4.1-5.3); Red Cell Distribution Width 15.1 % (12.1-15.1); White Blood Count 11.3 10^3/uL (4.0-10.0)
[2022-04-18 14:45] LABS: Alanine Aminotransferase 30 U/L (0-41); Albumin Level 3.5 g/dL (3.5-5.2); Alkaline Phosphatase 136 U/L (40-130); Anion Gap 15.1 (5-19); Aspartate Amino Transferase 23 U/L (0-40); Blood Urea Nitrogen 24 mg/dL (8-23); Calcium 9.6 mg/dL (8.5-10.5); Carbon Dioxide 26 mmol/L (22-29); Chloride 98 mmol/L (98-107); Globulin 3.9 g/dL (1.3-4.6); Glucose 189 mg/dL (65-115); Osmolality Calculated 289 mOsm/kg (285-295); Potassium 4.1 mmol/L (3.5-5.1); Sodium 135 mmol/L (136-145); Total Bilirubin 0.3 mg/dL (0.15-1.2); Total Protein 7.4 g/dL (6.6-8.7)
[2022-04-18 14:47] LABS: Troponin(5th) Baseline 12 ng/L (0-15)
[2022-04-18 15:08] VITALS: BP 168/79; PULSE 72; RESP 23; O2SAT 100
[2022-04-18 16:00] VITALS: BP 202/89; PULSE 79; RESP 20; O2SAT 100
[2022-04-18] MEDS: labetalol 5 mg/mL SDV 20mL 10 MG IVP (16:04)
[2022-04-18 16:15] LABS: Troponin 5 2HR 16.74 ng/L (0-15)
[2022-04-18 16:23] LABS: Troponin 5 2HR Delta 4.74 ABS# (0-10)
[2022-04-18 17:03] VITALS: BP 188/83; PULSE 66; RESP 18; O2SAT 100
--- NOTE | 2022-04-19 09:22 | DCPLANNER ---
Addendum entered by Madison Wilson 04/19/22 12:44: trade manager received the following message from [facility] regarding follow up appointment: Patient returned call. Patient did not want appt at this time. Thank you. On 04/19/22 @ 10:57 Catherine Darden Wrote To [facility] Front Office Attempted to contact patient - left a voicemail to call back Original Note: trade manager had message to schedule a follow up appointment for patient with cardiology. trade manager sent patients information to the front office staff at [facility]. Patients information will be printed and reviewed. Clinic will call patient with appointment information.
== END 2022-04-18 17:05 | disposition home or self-care (01) ==
PROVIDERS: Emergency Provider Emergency Medicine; PCP Registered Nurse
DX: R07.9 Chest pain, unspecified (principal); Z79.01 Long term (current) use of anticoagulants; Z79.84 Long term (current) use of oral hypoglycemic drugs; Z87.891 Personal history of nicotine dependence; I11.0 Hypertensive heart disease with heart failure; I50.9 Heart failure, unspecified; J44.9 Chronic obstructive pulmonary disease, unspecified; E13.9 Other specified diabetes mellitus without complications; E78.5 Hyperlipidemia, unspecified; Z99.81 Dependence on supplemental oxygen
CPT/HCPCS: 36415; 80053; 84484; 85025; 93005; 96374; 99285; J3490

== ENCOUNTER 2022-04-24 20:00 | Outpatient (CLI) | payer OTHER, SELFPAY | END 2022-04-24 20:01 | disposition home or self-care (01) | LOC: SLEEP 04-25 08:21 | PROVIDERS: PCP Registered Nurse; Visit Provider Internal Medicine Pulmonary Disease | DX: G47.33 Obstructive sleep apnea (adult) (pediatric) (principal) | CPT/HCPCS: 95811 ==

== ENCOUNTER → 2022-05-20 13:13 | Outpatient (BNVA) | payer OTHER, SELFPAY | PROVIDERS: PCP Registered Nurse; Visit Provider Urology | DX: N28.1 Cyst of kidney, acquired (principal) | CPT/HCPCS: 81003; 99202 ==

== ENCOUNTER 2022-05-22 10:17 | Outpatient (CLI) | payer OTHER, SELFPAY ==
--- NOTE | 2022-05-22 11:00 | USCV_ITS ---
ClaireJonathan an Age: 77 Gender: M : 1945 Exam Date: 05/22/2022 10:29 Ordering Phys: Ghulam Aguilar M.D ([email or web address]) Technologist: CT Exam Location: [facility] [place] Indication: carotid stenosis Risk Factors: Previous Vascular Surgery: rt cea Right Brachial BP: / Left Brachial BP: / Right Left Velocity (cm/s) Spectral Plaque Velocity (cm/s) Spectral Plaque Syst/Diast Broadening Syst/Diast Broadening 91.50/ 19.80 Prox CCA 33.40 / 15.50 81.50/ 21.40 Mid CCA 59.00 / 19.40 90.10/ 29.20 Distal CCA 57.50 / 22.50 147.80/36.20 Prox ICA 147.25/ 69.70 126.90/41.00 Mid ICA 159.80/ 42.50 105.80/34.20 Distal ICA 131.90/ 26.40 208.90 ECA 37.60 1.62 ICA/CCA 3.83 Antegrade Vertebral Antegrade 42.70/ 43.15 cm/s 80.60/ 22.00 cm/s Bi Subclavian Bi 119.6 178.4 0 0 FINDINGS Comparison:. 02/13/21. Progression of irregular diffuse plaque and stenosis left carotid system. Increasing systolic velocity and ratios. Mild progression of stenosis right ICA. Antegrade vertebral arteries. CONCLUSIONS Left ICA stenosis 50-69%. Progression of plaque and stenosis since the prior exam. Plaque surface is irregular. Right ICA stenosis < 50%. Dr. Nidia Harper DO (Electronically Signed) Final Date: 22 May 2022 15:00 S
== END 2022-05-22 10:18 | disposition home or self-care (01) ==
LOC: RAD 10:17
PROVIDERS: PCP Registered Nurse; Visit Provider Internal Medicine
DX: I65.23 Occlusion and stenosis of bilateral carotid arteries (principal)
CPT/HCPCS: 93880

== ENCOUNTER 2022-07-16 11:09 | Emergency (ER) | payer OTHER, SELFPAY ==
[2022-07-16 11:22] VITALS: BP 136/62; PULSE 104; RESP 18; TEMP 37.1; O2SAT 88
--- NOTE | 2022-07-16 11:35 | ECG_ITS ---
[facility] Test Date: 2022-07-16 Pat Name: Jonathan Sultana Department: Room: Gender: Male Desktop Engineer: : 1945 Requested By: Allen Holden Order Number: [id number] Alexey MD: Ghulam Aguilar M.D. Measurements Intervals [place] Rate: 105 P: 83 DC: 184 QRS: 92 QRSD: 142 T: -81 QT: 359 QTc: 475 Interpretive Statements SINUS TACHYCARDIA WITH OCCASIONAL VENTRICULAR PREMATURE COMPLEXES BORDERLINE RIGHT AXIS DEVIATION [QRS AXIS > 90] INTRAVENTRICULAR CONDUCTION DELAY [130+ ms QRS DURATION] Compared to ECG 04/18/2022 13:55:03 Intraventricular conduction delay now present Sinus rhythm no longer present Left bundle-branch block no longer present Electronically Signed On 07-16-2022 17:46:48 COMPUTER AIDED DRAFTER by Ghulam Aguilar M.D. [id number]
--- NOTE | 2022-07-16 11:35 | XR_ITS ---
WS: [id number] Exam: XR chest 1V portable [id number] Date/Time of Exam: 07/16/2022 11:40 AM Reason For Exam: dyspnea/cough Comparison 07/29/2021. The lungs are hyperinflated. No acute infiltrates are noted. Chronic interstitial changes noted in th e bilateral lung zones more prevalent in the lower lung zones. No pleural effusion. Normal cardiomedi astinal silhouette. Bony structures are intact. Monitoring leads superimpose the chest. XR/XR chest 1V portable [id number] IMPRESSION: 1. Pulmonary hyperinflation probably indicating COPD. 2. Chronic interstitial changes noted bilaterally most prevalent in the bilater al lower lung zones. No acute process.
[2022-07-16 11:55] LABS: Basophils # 0.1 10^3/uL (0.0-0.1); Basophils % 0.5 %; Eosinophils # 0.1 10^3/uL (0.0-0.8); Eosinophils % 0.5 %; Hematocrit 43.7 % (42.0-52.0); Hemoglobin 13.8 g/dL (11.7-16.6); Lymphocytes % 7.6 %; Mean Corpuscular HGB Conc 31.6 g/dL (30.0-36.0); Mean Corpuscular Hemoglobin 27.2 pg (28.0-34.0); Mean Corpuscular Volume 86.2 fl (80-94); Mean Platelet Volume 11.4 fL (7.4-10.4); Monocytes # 1.3 10^3/uL (0.2-0.9); Monocytes % 9.7 %; Neutrophils # 10.74 10^3/uL (1.8-7.7); Neutrophils % 81.5 %; Nucleated Red Blood Cells % 0 %; Platelet Count 153 10^3/cmm (130-400); Red Blood Count 5.07 10^6/uL (4.1-5.3); Red Cell Distribution Width 15.9 % (12.1-15.1); White Blood Count 13.2 10^3/uL (4.0-10.0)
[2022-07-16 12:15] LABS: Troponin(5th) Baseline 33 ng/L (0-15)
[2022-07-16 12:16] LABS: Alanine Aminotransferase 28 U/L (0-41); Albumin Level 3.7 g/dL (3.5-5.2); Alkaline Phosphatase 115 U/L (40-130); Anion Gap 17.1 (5-19); Aspartate Amino Transferase 27 U/L (0-40); Blood Urea Nitrogen 21 mg/dL (8-23); Calcium 9.6 mg/dL (8.5-10.5); Carbon Dioxide 25 mmol/L (22-29); Chloride 97 mmol/L (98-107); Globulin 3.5 g/dL (1.3-4.6); Glucose 134 mg/dL (65-115); Osmolality Calculated 285 mOsm/kg (285-295); Potassium 4.1 mmol/L (3.5-5.1); Sodium 135 mmol/L (136-145); Total Bilirubin 0.8 mg/dL (0.15-1.2); Total Protein 7.2 g/dL (6.6-8.7)
--- NOTE | 2022-07-16 12:16 | W.ED.SOB ---
HPI - SOB/Dyspnea General: Chief Complaint: Shortness of Breath/Dyspnea Stated Complaint: fever, SOB Time Seen by Provider: 07/16/22 11:33 Source: patient Mode of arrival: ambulatory History of Present Illness: HPI Narrative: 77-year-old male presents emergency room with complaint of shortness of breath. Patient has end-stage COPD history of A. fib CHF COPD is normally on 4 L by nasal cannula. He is having some minimally productive cough no chest pain on arrival here he is 97% on 4 L which is his typical rate for him. He is reporting a temp of 101 last night. No vomiting no diarrhea. [facility] ED PFSH: Medical History Anticoagulation adequate Eliquis ASHD (arteriosclerotic heart disease) Atrial fibrillation BPH (benign prostatic hyperplasia) Carotid stenosis, bilateral CHF (congestive heart failure) CKD (chronic kidney disease) COPD (chronic obstructive pulmonary disease) COPD exacerbation Diabetes 1.5, managed as type 2 Diastolic CHF, acute on chronic Fracture of second metatarsal bone GERD (gastroesophageal reflux disease) Heart failure with preserved ejection fraction History of 2019 novel coronavirus disease (COVID-19) (~07/2020) History of echocardiogram (~11/2019) EF 50-55%, no valvular abnormalities, normal pulmonary pressures History of nonmelanoma skin cancer HTN (hypertension) Hyperlipidemia LBBB (left bundle branch block) On home oxygen therapy 4L MOSHE (obstructive sleep apnea) Bipap 09/03 Osteoporosis alendronate Pneumonia Pulmonary emphysema with fibrosis of lung RLS (restless legs syndrome) Surgical History S/P carotid endarterectomy S/P carpal tunnel release S/P sinus surgery Family History Mother , AGE 64 Diabetes Cancer Father , AGE 62 CAD (coronary artery disease) Social History Smoking and tobacco status: former smoker Quit status (tobacco): has quit using tobacco Year quit tobacco: 1999 [id number] Second hand smoke exposure: No Smoking risk assessment/counseling performed?: Yes Alcohol intake: never Lives independently: Yes Household members: spouse Housing: House Marital status: service: Yes branch: [employer] Current occupational status: retired Pets and animals: No History of recent travel: No Current gender identity: Male Course Vital Signs: Vital signs: Vital Signs Temperature 98.8 F 07/16/22 11:22 Pulse Rate 75 07/16/22 14:30 Respiratory Rate 23 H 07/16/22 14:30 Blood Pressure 140/68 07/16/22 14:30 Pulse Oximetry 95 07/16/22 14:30 Oxygen Delivery Me thod 07/16/22 14:30 Oxygen Flow Rate 4 07/16/22 14:30 MDM - SOB/Dyspnea Medical Decision Making EKG labs and imaging reviewed. No acute EKG changes troponin is unchanged at the 2-hour bailey. This appears to be more an exacerbation of his COPD is no sign of infectious component steroid taper albuterol Atrovent nebs every 4 hours while awake and follow-up with pulmonology. Medical Records I reviewed the patient's medical records. Lab Data I reviewed the patient's lab results. 07/16/22 11:45 07/16/22 11:45 Labs/Radiology: Radiology Impressions Chest X-Ray 07/16/22 11:35 IMPRESSION: 1. Pulmonary hyperinflation probably indicating COPD. 2. Chronic interstitial changes noted bilaterally most prevalent in the bilateral lower lung zones. No acute process. Laboratory Results WBC 13.2 10^3/uL (4.0-10.0) H 07/16/22 11:45 RBC 5.07 10^6/uL (4.1-5.3) 07/16/22 11:45 Hgb 13.8 g/dL (11.7-16.6) 07/16/22 11:45 Hct 43.7 % (42.0-52.0) 07/16/22 11:45 MCV 86.2 fl (80-94) 07/16/22 11:45 MCH 27.2 pg (28.0-34.0) L 07/16/22 11:45 MCHC 31.6 g/dL (30.0-36.0) 07/16/22 11:45 RDW 15.9 % (12.1-15.1) H 07/16/22 11:45 Plt Count 153 10^3/cmm (130-400) 07/16/22 11:45 MPV 11.4 fL (7.4-10.4) H 07/16/22 11:45 Neut % (Auto) 81.5 % 07/16/22 11:45 Lymph % (Auto) 7.6 % 07/16/22 11:45 [place] % (Auto) 9.7 % 07/16/22 11:45 Eos % (Auto) 0.5 % 07/16/22 11:45 Baso % (Auto) 0.5 % 07/16/22 11:45 Neut # (Auto) 10.74 10^3/uL (1.8-7.7) H 07/16/22 11:45 Lymph # (Auto) 1.0 10^3/uL (0.8-4.8) 07/16/22 11:45 [place] # (Auto) 1.3 10^3/uL (0.2-0.9) H 07/16/22 11:45 Eos # (Auto) 0.1 10^3/uL (0.0-0.8) 07/16/22 11:45 Baso # (Auto) 0.1 10^3/uL (0.0-0.1) 07/16/22 11:45 Nucleated RBC % (auto) 0 % 07/16/22 11:45 Nucleated RBCs # 0.0 /100WBC 07/16/22 11:45 Specimen Type Arterial 07/16/22 12:33 Sample Site Radial, right 07/16/22 12:33 ABG pH 7.44 (7.35-7.45) 07/16/22 12:33 ABG pCO2 39.1 mmHg (35-45) 07/16/22 12:33 ABG pO2 68.7 mmHg (80.0-100.0) L 07/16/22 12:33 ABG HCO3 26.6 mmol/L (22-26) H 07/16/22 12:33 ABG O2 Saturation 95.2 07/16/22 12:33 ABG Base Excess 2.4 mmol/L (-2.0-2.0) H 07/16/22 12:33 Mariano Test Pos 07/16/22 12:33 A-a O2 Gradient 4.5 mmHg (5-10) L 07/16/22 12:33 Hematocrit 41.1 % (42-52) L 07/16/22 12:33 Hgb O2 Saturation 93.6 % (95-100) L 07/16/22 12:33 Carboxyhemoglobin 1.5 %THgb (0.4-20.1) 07/16/22 12:33 Methemoglobin 0.2 % (0.4-1.5) L 07/16/22 12:33 Total Hemoglobin 13.4 g/dL (14-18) L 07/16/22 12:33 Sodium 136.0 mmol/L (131-143) 07/16/22 12:33 Potassium 4.0 mmol/L (3.5-5.0) 07/16/22 12:33 Glucose 131.0 mg/dL (70-115) H 07/16/22 12:33 Ionized Calcium 1.2 mmol/L (1.1-1.4) 07/16/22 12:33 O2 Delivery Device Nc 07/16/22 12:33 O2 Liters/Min 4.0 % 07/16/22 12:33 Accounting Practice Manager ID [place] 07/16/22 12:33 Sodium 135 mmol/L (136-145) L 07/16/22 11:45 Potassium 4.1 mmol/L (3.5-5.1) 07/16/22 11:45 Chloride 97 mmol/L (98-107) L 07/16/22 11:45 Carbon Dioxide 25 mmol/L (22-29) 07/16/22 11:45 Anion Gap 17.1 (5-19) 07/16/22 11:45 BUN 21 mg/dL (8-23) 07/16/22 11:45 Creatinine 1.1 mg/dL (0.7-1.2) 07/16/22 11:45 GFR Calculation Not Reportable 07/16/22 11:45 Glucose 134 mg/dL (65-115) H 07/16/22 11:45 Calculated Osmolality 285 mOsm/kg (285-295) 07/16/22 11:45 Calcium 9.6 mg/dL (8.5-10.5) 07/16/22 11:45 Total Bilirubin 0.8 mg/dL (0.15-1.2) 07/16/22 11:45 AST 27 U/L (0-40) 07/16/22 11:45 ALT 28 U/L (0-41) 07/16/22 11:45 Alkaline Phosphatase 115 U/L (40-130) 07/16/22 11:45 Troponin T Baseline 33 ng/L (0-15) H 07/16/22 11:45 Troponin T 120 Minute 33.90 ng/L (0-15) H 07/16/22 14:08 Delta Troponin T 0.90 ABS# (0-10) 07/16/22 14:08 Total Protein 7.2 g/dL (6.6-8.7) 07/16/22 11:45 Albumin 3.7 g/dL (3.5-5.2) 07/16/22 11:45 Globulin 3.5 g/dL (1.3-4.6) 07/16/22 11:45 Influenza Type A Ag negative (Negative) 07/16/22 12:27 Influenza Type B Ag negative (Negative) 07/16/22 12:27 Discharge Plan Discharge Patient Disposition: Home Clinical Impression: COPD exacerbation Condition: Stable Prescriptions: New prednisone 20 mg tablet 20 mg PO TID Qty: 15 0RF Rx Instructions: 1 p.o. 3 times daily x3 days, 1 p.o. twice daily x2 days, 1 p.o. daily x2 days ipratropium-albuterol 0.5 mg-3 mg(2.5 mg base)/3 mL solution for nebulization 3 ml inhalation Q4H PRN (Reason: shortness of breath or wheezing) Qty: 180 0RF Rx Instructions: until breathing returns to target peak flow/parameters No Action Eliquis 5 mg tablet 5 mg PO BID@07, atorvastatin 20 mg tablet 20 mg PO BEDTIME alendronate [Fosamax] 70 mg tablet 70 mg PO Q7D Rx Instructions: ON SUNDAYS Jardiance 10 mg tablet 10 mg PO DAILY ascorbic acid (vitamin C) 500 mg capsule 500 mg PO BID Galzin 50 mg (zinc) capsule 50 mg PO DAILY lisinopril 10 mg tablet 10 mg PO DAILY Qty: 90 3RF Yupelri 175 mcg/3 mL solution for nebulization 175 mcg inhalation DAILY Qty: 90 3RF budesonide [Pulmicort] 0.25 mg/2 mL suspension for nebulization 0.5 mg inhalation BID Qty: 10 3RF arformoterol 15 mcg/2 mL solution for nebulization 2 ml inhalation BID 30 Days Qty: 120 4RF potassium chloride 20 mEq Tablet Extended Release 20 meq PO DAILY@07 glimepiride 2 mg tablet 1 mg PO DAILY@07 famotidine 20 mg tablet 20 mg PO DAILY tamsulosin 0.4 mg capsule 0.4 mg PO DAILY levalbuterol tartrate [Xopenex HFA] 45 mcg/actuation Hfa Aerosol Inhaler 1 puff INHALATION Q6H PRN (Reason: Shortness Of Breath) Qty: 0 calcium carbonate-vitamin D3 [Oyster Shell Calcium-Vit D3] 500 mg(1,250mg) -200 unit tablet 500 tab PO DAILY@07 Daliresp 500 mcg Tablet 500 mcg PO DAILY@07 ropinirole 0.25 mg Tablet 0.25 mg PO BEDTIME Rx Instructions: if symptoms persist - may increase furosemide 40 mg tablet 20 mg PO DAILY cholecalciferol (vitamin D3) 75 mcg (3,000 unit) tablet 50 mcg PO DAILY metoprolol succinate 25 mg tablet extended release 24 hr 25 mg PO DAILY Rx Instructions: take with 50 mg to equal 75 mg daily guaifenesin 400 mg Tablet 400 mg PO Q4H PRN (Reason: Congestion) metoprolol succinate 50 mg tablet extended release 24 hr 50 mg PO DAILY Rx Instructions: take with 25 mg daily to equal 75 mg Discharge Orders: Discharge ED (Routine); Ordered 07/16/22 Ordered By: Allen Ji Referrals: Luis Cordova CPNP [Primary Care Provider] - Discharge Diet: Usual diet Discharge Activity: Increase activity as tolerated Patient Instructions: Opioid Safety, Pain Management Activity Restrictions/Additional Instructions: You were seen for exacerbation of COPD today. Use your rescue nebulizer with the albuterol ipratropium bromide you are given today every 4 hours while awake. You can hold off on using the Xopenex unless you are away from home and needs something for immediate relief. Continue all your other inhaled medications. Start oral steroid taper tomorrow. contact your learning disabilities teacher office for recommended follow-up. If you are not improving in next 3 to 4 days follow-up with pulmonology. Coding Level of Care Code ED Plastic Finisher for Robert Garcia
[2022-07-16 12:28] VITALS: PULSE 84; RESP 16; O2SAT 92
[2022-07-16] MEDS: ipratropium-albuterol 3 mL Neb INHALATION (12:29)
[2022-07-16 12:34] VITALS: PULSE 90
[2022-07-16 12:47] LABS: ABG PCO2 39.1 mmHg (35-45); ABG PH Result 7.44 (7.35-7.45); Alveolar-Arterial Oxygen Gradi 4.5 mmHg (5-10); Arterial Blood Gas Hematocrit 41.1 % (42-52); Base Excess ABG 2.4 mmol/L (-2.0-2.0); Blood Gas Allen Test Pos; Blood Gas Sample Site Radial, right; Blood Gas Sample Type Arterial; Carboxyhemoglobin 1.5 %THgb (0.4-20.1); HCO3 ABG 26.6 mmol/L (22-26); HGB O2 Sat 93.6 % (95-100); Ionized Calcium Level - ABG 1.2 mmol/L (1.1-1.4); Methemoglobin 0.2 % (0.4-1.5); Oxygen Device NC; Oxygen Saturation ABG 95.2; PO2 ABG 68.7 mmHg (80.0-100.0); Total Hemoglobin 13.4 g/dL (14-18)
--- NOTE | 2022-07-16 13:30 | ECG_ITS ---
[facility] Test Date: 2022-07-16 Pat Name: Jonathan Sultana Department: Room: Gender: Male Iuss Analyst: : 1945 Requested By: Allen Holden Order Number: [id number] Alexey MD: Ghulam Aguilar M.D. Measurements Intervals [place] Rate: 82 P: 78 DC: 175 QRS: 88 QRSD: 140 T: 88 QT: 399 QTc: 469 Interpretive Statements SINUS RHYTHM LEFT BUNDLE BRANCH BLOCK [120+ ms QRS DURATION, 80+ ms Q/S IN V1/V2, 85+ ms R IN I/aVL/V5/V6] Compared to ECG 07/16/2022 11:39:43 Left bundle-branch block now present Sinus tachycardia no longer present Ventricular premature complex(es) no longer present Intraventricular conduction delay no longer present Electronically Signed On 07-16-2022 17:49:31 PHLEBOTOMY TECHNICIAN by Ghulam Aguilar M.D. [id number]
[2022-07-16 13:38] VITALS: BP 130/64; PULSE 81; RESP 30; O2SAT 93
[2022-07-16 13:48] LABS: Influenza A by IFA negative (Negative); Influenza B by IFA negative (Negative)
[2022-07-16 14:30] VITALS: BP 140/68; PULSE 75; RESP 23; O2SAT 95
[2022-07-16 17:57] LABS: Adenovirus Not Detected (NOT DETECT); Chlamydia Pneumoniae Not Detected (NOT DETECT); Coronavirus 229E,HKU1,NL63,OC4 Not Detected (NOT DETECT); Human Metapneumovirus Not Detected (NOT DETECT); Human Rhinovirus/Enterovirus Not Detected (NOT DETECT); Influenza A Not Detected (NOT DETECT); Influenza A H1 Not Detected (NOT DETECT); Influenza A H1-2009 Not Detected (NOT DETECT); Influenza A H3 Not Detected (NOT DETECT); Influenza B Not Detected (NOT DETECT); Mycoplasma Pneumoniae Not Detected (NOT DETECT); Parainfluenza Virus Type 1 Not Detected (NOT DETECT); Parainfluenza Virus Type 2 Not Detected (NOT DETECT); Parainfluenza Virus Type 3 Not Detected (NOT DETECT); Parainfluenza Virus Type 4 Not Detected (NOT DETECT); Respiratory Syncytial Virus A Not Detected (NOT DETECT); Respiratory Syncytial Virus B Not Detected (NOT DETECT); SARS-COV-2 Detected (NOT DETECT)
== END 2022-07-16 15:21 | disposition home or self-care (01) ==
PROVIDERS: Emergency Provider Family Medicine; PCP Registered Nurse
DX: J44.1 Chronic obstructive pulmonary disease with (acute) exacerbation (principal)
CPT/HCPCS: 36600; 71045; 80051; 80053; 82330; 82805; 84484; 85025; 87635; 87804; 93005; 94640; 96374; 99285; J2930

== ENCOUNTER → 2022-08-16 14:09 | Outpatient (BNVA) | payer OTHER, SELFPAY | PROVIDERS: PCP Registered Nurse; Visit Provider Internal Medicine Pulmonary Disease | DX: J43.9 Emphysema, unspecified (principal); R05.8 Other specified cough | CPT/HCPCS: 71046 ==

== ENCOUNTER → 2022-09-11 14:37 | Outpatient (BNVA) | payer OTHER, SELFPAY | PROVIDERS: PCP Registered Nurse; Visit Provider Internal Medicine Pulmonary Disease | DX: R05.8 Other specified cough (principal) | CPT/HCPCS: 71046 ==

== ENCOUNTER 2022-09-11 17:21 | Inpatient (IN) | payer OTHER, SELFPAY ==
[2022-09-11] VITALS (11 sets, daily range): BP systolic 152–189; BP diastolic 92–110; PULSE 87–107; RESP 16–17; TEMP 36.7–36.8; O2SAT 91–99; BMI 21.6
--- NOTE | 2022-09-11 18:21 | ED_ITS ---
Documented by User: SANTIAGO Dempsey 09/11/22 21:41 HPI - General Adult General: Chief complaint: General Medical Stated complaint: SOB Time Seen by Provider: 09/11/22 17:34 Source: patient and family Mode of arrival: wheelchair Limitations: no limitations History of Present Illness: Patient presents the emergency department today accompanied by his family for evaluation and treatment of various issues. Patient was seen and evaluated by his extractor and wringer operator today and, after various concerns was sent here to the emergency department. Patient has been having difficulty controlling his blood pressures. Patient has been becoming hypotensive throughout the day-especially early mornings. They report dizziness with standing and ambulation and reports that he has had falls and near blacking out episodes with this as well. Patient has also had more difficulty keeping his oxygen saturation up. Patient has COPD and typically wears 4 L by nasal cannula. He has a history of A-fib with RVR as well as CHF and has a little bit of swelling off-and-on to his right lower extremity but has not noticed any significant new onset of swelling. Patient had pneumonia approximately 2 months ago and was treated with antibiotics and steroids however, they feel he did not ever fully recover from this illness and still continues to have symptoms of cough. Patient currently takes 3 different blood pressure medications-Lasix, lisinopril, metoprolol. Pulmonology encouraged him to stop taking Lasix and lisinopril however, patient is already taken blood pressure medication today. Chart review shows he was seen by his extractor and wringer operator today and based off of the recommendations wanted the patient seen and evaluated here in the emergency department for inpatient admission for IV antibiotics, CT chest to further evaluate continued infiltrative disease, and a full cardiac work-up. Associated symptoms: Reports dyspnea and palpitations (hx afib) Review of Systems General: Reports: 10 or more systems reviewed and unremarkable except in HPI and below Card: Reports: palpitations (hx afib), swelling of feet/ankles (mild, occasio nal), lightheadedness, pre-syncope and dyspnea on exertion Resp: Reports: dyspnea, productive cough, wheezing and chest congestion [facility] PFSH: Medical History Anticoagulation adequate Eliquis ASHD (arteriosclerotic heart disease) Atrial fibrillation BPH (benign prostatic hyperplasia) Carotid stenosis, bilateral CHF (congestive heart failure) CKD (chronic kidney disease) COPD (chronic obstructive pulmonary disease) COPD exacerbation Diabetes 1.5, managed as type 2 Diastolic CHF, acute on chronic Fracture of second metatarsal bone GERD (gastroesophageal reflux disease) Heart failure with preserved ejection fraction History of 2019 novel coronavirus disease (COVID-19) (~07/2020) History of echocardiogram (~11/2019) EF 50-55%, no valvular abnormalities, normal pulmonary pressures History of nonmelanoma skin cancer HTN (hypertension) Hyperlipidemia LBBB (left bundle branch block) On home oxygen therapy 4L MOSHE (obstructive sleep apnea) Bipap 09/03 Osteoporosis alendronate Pneumonia Pulmonary emphysema with fibrosis of lung RLS (restless legs syndrome) Surgical History S/P carotid endarterectomy S/P carpal tunnel release S/P sinus surgery Family History Mother , AGE 64 Diabetes Cancer Father , AGE 62 CAD (coronary artery disease) Social History Smoking and tobacco status: former smoker Quit status (tobacco): has quit using tobacco Year quit tobacco: 1999 1.5ppdx4 0years Second hand smoke exposure: No Smoking risk assessment/counseling performed?: Yes Alcohol intake: never Lives independently: Yes Household members: spouse Housing: House Marital status: service: Yes branch: [employer] Current occupational status: retired Pets and animals: No Current gender identity: Male Physical Exam Const: COMMON NORMALS: no acute distress, patient oriented x3 and alert Eye: COMMON NORMALS: Equal, round and reactive pupils present, EOMs intact bilaterally and conjunctivae normal CONJUNCTIVA: Yes conjunctivae normal PUPIL: Yes Equal, round and reactive pupils present Neck/C-Spine: COMMON NORMALS: no JVD Lymph: LYMPHATIC: no lymphadenopathy noted Resp: COMMON NORMALS: normal respiratory effort, No retractions and No use of accessory muscles; negative for clear to auscultation bilaterally EFFORT & INSPECTION: Yes able to speak in complete sentences, Yes symmetric chest movement, No respiratory distress and No grunting AUSCULTATION: not clear to auscultation bilaterally, rhonchi and diminished lung sounds Cardio: COMMON NORMALS: no JVD and regular rate (not currently in afib) RATE: regular rate (not currently in afib) : COMMON NORMALS: Yes no CVA tenderness BLADDER/KIDNEY EXAM: Yes no CVA tenderness Back/Pelvis: COMMON NORMALS: no CVA tenderness, thoracic and lumbar spine normal to inspection and thoraco-lumbar ROM normal Extremity: COMMON NORMALS: normal to inspection, full ROM and no pedal edema Neuro: COMMON NORMALS: patient oriented x3 SENSORIUM/ORIENTATION: Yes alert Skin: COMMON NORMALS: no rashes or lesions noted and turgor normal GENERAL SKIN EXAM: no rashes or lesions noted and turgor normal Course Vital Signs: Vital signs: Vital Signs Temperature 98.5 F 09/20/22 04:00 Pulse Rate 88 09/20/22 14:02 Respiratory Rate 20 H 09/20/22 14:02 Blood Pressure 160/71 09/20/22 14:02 Pulse Oximetry 96 09/20/22 14:02 Oxygen Delivery Me thod 09/20/22 12:45 Oxygen Flow Rate 2 09/20/22 12:45 [facility] - General Adult Medical Decision Making Patient presents to the emergency department today accompanied by family after being sent by his extractor and wringer operator. Patient has a history of CHF, COPD typically on 3 to 4 L by nasal cannula at home, A-fib with RVR, CKD. Patient is c hronically anticoagulated and typically takes 3 different blood pressure medications. However, patient has been having difficulty controlling his blood pressure. He reports very low readings earlier in the mornings and today presents with elevated blood pressure readings. Patient is otherwise asy mptomatic with his elevated blood pressure readings but indicates near syncope when he is hypotensive. Pulmonology note indicated they wanted a CT of the chest, full cardiac evaluation as an inpatient with inpatient admission for IV antibiotics for suspicion of continued infiltrate found on the patient's x-ray from their office. Patient has stable blood pressure reading at the pulmonology office at 1:30 PM. Patient's orthostats were negative here in the ER. Patient's EKG showed sinus rhythm with occasional PVCs. Patient has a slightly elevated white blood cell count and hemoglobin is stable at 13.9. Patient has an INR of 1.14. Patient's electrolytes are well within normal limits and his creatinine is 1. BNP is 765. Patient received a DuoNeb treatment here in the emergency department. CT examination showed continued bilateral lower lobe pneumonias and significant emphysema. Sputum obtained and cultures pending. I did discuss the case with Dr. Noel. As it was a request of the extractor and wringer operator to have the patient admitted, he was willing to reach out and speak with hospitalist to discuss whether or not patient met admission criteria. Patient is being admitted for observation. Discussed this admission with patient and family who are in agreement to the treatment plan. Will defer care to hospitalist services and the hospital floor at this time for continued evaluation and management of care. Differential Diagnosis COPD exacerbation, pulmonary congestion, acute on chronic CHF, anemia, sepsis, acute flare of A-fib causing hypotension, [place] Lab Data 09/11/22 18:46 09/11/22 18:[address] 09/11/22 19:39 IMPRESSION: 1. Severe emphysema 2. Bilateral lower lobe pneumonia 3. Mild mediastinal and hilar adenopathy, likely reactive. 4. Stable appearing scarring in the pulmonary apices. COMMENTS: In the absence of a history or active diagnosis of lung cancer, it is recommended that this patient with emphysema be evaluated for enrollment in a low dose CT lung cancer screening program. Carotid Doppler Study 09/14/22 12:00 IMPRESSION: 1. 50-69% stenosis right internal carotid artery 2. 50-69% stenosis left internal carotid artery. 3. Patent bilateral vertebral arteries with normal direction of flow. REFERENCES: SRU CRITERIA. The degree of internal carotid artery stenosis is based on criteria defined by the Society of Radiologists in Ultrasound (SRU). Normal is no stenosis. Mild is less than 50% stenosis. Moderate is 50-69% stenosis. Severe is greater than 69% stenosis to near occlusion. Near occlusion is a markedly narrowed lumen. Total occlusion is no detectable patent lumen. Head CT 09/14/22 12:06 IMPRESSION: 1. No acute intracranial abnormality. 2. Inflammatory changes of the right maxillary sinus, suggestive of acute on chronic sinusitis. Laboratory Results WBC 11.9 10^3/uL (4.0-10.0) H 09/11/22 18:46 RBC 5.31 10^6/uL (4.1-5.3) H 09/11/22 18:46 Hgb 13.9 g/dL (11.7-16.6) 09/11/22 18:46 Hct 44.1 % (42.0-52.0) 09/11/22 18:46 MCV 83.1 fl (80-94) 09/11/22 18:46 MCH 26.2 pg (28.0-34.0) L 09/11/22 18:46 MCHC 31.5 g/dL (30.0-36.0) 09/11/22 18:46 RDW 16.1 % (12.1-15.1) H 09/11/22 18:46 Plt Count 226 10^3/cmm (130-400) 09/11/22 18:46 MPV 10.6 fL (7.4-10.4) H 09/11/22 18:46 Neut % (Auto) 62.1 % 09/11/22 18:46 Lymph % (Auto) 23.1 % 09/11/22 18:46 [place] % (Auto) 11.1 % 09/11/22 18:46 Eos % (Auto) 2.4 % 09/11/22 18:46 Baso % (Auto) 0.7 % 09/11/22 18:46 Neut # (Auto) 7.37 10^3/uL (1.8-7.7) 09/11/22 18:46 Lymph # (Auto) 2.7 10^3/uL (0.8-4.8) 09/11/22 18:46 [place] # (Auto) 1.3 10^3/uL (0.2-0.9) H 09/11/22 18:46 Eos # (Auto) 0.3 10^3/uL (0.0-0.8) 09/11/22 18:46 Baso # (Auto) 0.1 10^3/uL (0.0-0.1) 09/11/22 18:46 Nucleated RBC % (auto) 0 % 09/11/22 18:46 Nucleated RBCs # 0.0 /100WBC 09/11/22 18:46 PT 15.00 SECONDS (12.1-14.9) H 09/11/22 18:46 INR 1.14 (0.8-1.2) 09/11/22 18:46 APTT 32.2 SECONDS (23.9-36.7) 09/11/22 18:46 Specimen Type Venous 09/11/22 18:37 Sample Site Not specified 09/11/22 18:37 Mariano Test N/a 09/11/22 18:37 VBG pH 7.43 (7.32-7.42) H 09/11/22 18:37 VBG pCO2 41.8 mmHg (41-51) 09/11/22 18:37 VBG pO2 43.0 mmHg (25-40) H 09/11/22 18:37 VBG HCO3 27.8 mmol/L (24-28) 09/11/22 18:37 VBG Base Excess 3.2 mmol/L (-3.0-3.0) H 09/11/22 18:37 VBG Hematocrit 21.1 % (42-52) L 09/11/22 18:37 O2 Delivery Device Nc 09/11/22 18:37 O2 Liters/Min 3.0 % 09/11/22 18:37 FiO2 32.0 % 09/11/22 18:37 Inside Sales Territory Manager ID Amh 09/11/22 18:37 Sodium 139 mmol/L (136-145) 09/11/22 18:46 Potassium 4.3 mmol/L (3.5-5.1) 09/11/22 18:46 Chloride 100 mmol/L (98-107) 09/11/22 18:46 Carbon Dioxide 26 mmol/L (22-29) 09/11/22 18:46 Anion Gap 17.3 (5-19) 09/11/22 18:46 BUN 22 mg/dL (8-23) 09/11/22 18:46 Creatinine 1.0 mg/dL (0.7-1.2) 09/11/22 18:46 GFR Calculation Not Reportable 09/11/22 18:46 Glucose 105 mg/dL (65-115) 09/11/22 18:46 Calculated Osmolality 292 mOsm/kg (285-295) 09/11/22 18:46 Calcium 9.4 mg/dL (8.5-10.5) 09/11/22 18:46 Total Bilirubin 0.3 mg/dL (0.15-1.2) 09/11/22 18:46 AST 19 U/L (0-40) 09/11/22 18:46 ALT 19 U/L (0-41) 09/11/22 18:46 Alkaline Phosphatase 134 U/L (40-130) H 09/11/22 18:46 Troponin T Gen 5 ng/L 11 ng/L (0-15) 09/11/22 18:46 NT-Pro-B Natriuret Pep 765 pg/mL (0-450) H 09/11/22 18:46 Total Protein 7.0 g/dL (6.6-8.7) 09/11/22 18:46 Albumin 4.0 g/dL (3.5-5.2) 09/11/22 18:46 Globulin 3.0 g/dL (1.3-4.6) 09/11/22 18:46 Discharge Plan Discharge Patient Disposition: Placed in Observation Admit Provider: Maximiliano Arteaga Clinical Impression: Pneumonia, Acute and chronic respiratory failure with hypoxia, Leukocytosis, Tachycardia Coding Level of Care Code ED Line Servicer for Chg Fwd Documented by User: Neri Noel MD 09/22/22 18:06 HPI - General Adult General: Chief complaint: General Medical Stated complaint: SOB Time Seen by Provider: 09/11/22 17:34 [facility] PFSH: Medical History Anticoagulation adequate Eliquis ASHD (arteriosclerotic heart disease) Atrial fibrillation BPH (benign prostatic hyperplasia) Carotid stenosis, bilateral CHF (congestive heart failure) CKD (chronic kidney disease) COPD (chronic obstructive pulmonary disease) COPD exacerbation Diabetes 1.5, managed as type 2 Diastolic CHF, acute on chronic Fracture of second metatarsal bone GERD (gastroesophageal reflux disease) Heart failure with preserved ejection fraction History of 2019 novel coronavirus disease (COVID-19) (~07/2020) History of echocardiogram (~11/2019) EF 50-55%, no valvular abnormalities, normal pulmonary pressures History of nonmelanoma skin cancer HTN (hypertension) Hyperlipidemia LBBB (left bundle branch block) On home oxygen therapy 4L MOSHE (obstructive sleep apnea) Bipap 09/03 Osteoporosis alendronate Pneumonia Pulmonary emphysema with fibrosis of lung RLS (restless legs syndrome) Surgical History S/P carotid endarterectomy S/P carpal tunnel release S/P sinus surgery Family History Mother , AGE 64 Diabetes Cancer Father , AGE 62 CAD (coronary artery disease) Social History Smoking and tobacco status: former smoker Quit status (tobacco): has quit using tobacco Year quit tobacco: 1999 [id number] Second hand smoke exposure: No Smoking risk assessment/counseling performed?: Yes Alcohol intake: never Lives independently: Yes Household members: spouse Housing: House Marital status: service: Yes branch: [employer] Current occupational status: retired Pets and animals: No Current gender identity: Male Course Vital Signs: Vital signs: Vital Signs Temperature 98.5 F 09/20/22 04:00 Pulse Rate 88 09/20/22 14:02 Respiratory Rate 20 H 09/20/22 14:02 Blood Pressure 160/71 09/20/22 14:02 Pulse Oximetry 96 09/20/22 14:02 Oxygen Delivery Me thod 09/20/22 12:45 Oxygen Flow Rate 2 09/20/22 12:45 MDM - General Adult Medical Decision Making Patient presents to the emergency department today accompanied by family after being sent by his extractor and wringer operator. Patient has a history of CHF, COPD typically on 3 to 4 L by nasal cannula at home, A-fib with RVR, CKD. Patient is chronically anticoagulated and typically takes 3 different blood pressure medications. However, patient has been having difficulty controlling his blood pressure. He reports very low readings earlier in the mornings and today presents with elevated blood pressure readings. Patient is otherwise asymptomatic with his elevated blood pressure readings but indicates near syncope when he is hypotensive. Pulmonology note indicated they wanted a CT of the chest, full cardiac evaluation as an inpatient with inpatient admission for IV antibiotics for suspicion of continued infiltrate found on the patient's x- ray from their office. Patient has stable blood pressure reading at the pulmonology office at 1:30 PM. Patient's orthostats were negative here in the ER. Patient's EKG showed sinus rhythm with occasional PVCs. Patient has a slightly elevated white blood cell count and hemoglobin is stable at 13.9. Patient has an INR of 1.14. Patient's electrolytes are well within normal limits and his creatinine is 1. BNP is 765. Patient received a DuoNeb treatment here in the emergency department. CT examination showed continued bilateral lower lobe pneumonias and significant emphysema. Sputum obtained and cultures pending. I did discuss the case with Dr. Noel. As it was a request of the extractor and wringer operator to have the patient admitted, he was willing to reach out and speak with [facility] josefina to discuss whether or not patient met admission criteria. Patient is being admitted for observation. Discussed this admission with patient and family who are in agreement to the treatment plan. Will defer care to hospitalist services and the hospital floor at this time for continued evalua tion and management of care. I discussed this case with SANTIAGO Alonzo. I reviewed documentation, labs, imaging. Neri Noel MD Emergency Medicine Lab Data 09/11/22 18:46 09/11/22 18:[address] 09/11/22 19:39 IMPRESSION: 1. Severe emphysema 2. Bilateral lower lobe pneumonia 3. Mild mediastinal and hilar adenopathy, likely reactive. 4. Stable appearing scarring in the pulmonary apices. COMMENTS: In the absence of a history or active diagnosis of lung cancer, it is recommended that this patient with emphysema be evaluated for enrollment in a low dose CT lung cancer screening program. Carotid Doppler Study 09/14/22 12:00 IMPRESSION: 1. 50-69% stenosis right internal carotid artery 2. 50-69% stenosis left internal carotid artery. 3. Patent bilateral vertebral arteries with normal direction of flow. REFERENCES: SRU CRITERIA. The degree of internal carotid artery stenosis is based on criteria defined by the Society of Radiologists in Ultrasound (SRU). Normal is no stenosis. Mild is less than 50% stenosis. Moderate is 50-69% stenosis. Severe is greater than 69% stenosis to near occlusion. Near occlusion is a markedly narrowed lumen. Total occlusion is no detectable patent lumen. Head CT 09/14/22 12:06 IMPRESSION: 1. No acute intracranial abnormality. 2. Inflammatory changes of the right maxillary sinus, suggestive of acute on chronic sinusitis. Laboratory Results WBC 11.9 10^3/uL (4.0-10.0) H 09/11/22 18:46 RBC 5.31 10^6/uL (4.1-5.3) H 09/11/22 18:46 Hgb 13.9 g/dL (11.7-16.6) 09/11/22 18:46 Hct 44.1 % (42.0-52.0) 09/11/22 18:46 MCV 83.1 fl (80-94) 09/11/22 18:46 MCH 26.2 pg (28.0-34.0) L 09/11/22 18:46 MCHC 31.5 g/dL (30.0-36.0) 09/11/22 18:46 RDW 16.1 % (12.1-15.1) H 09/11/22 18:46 Plt Count 226 10^3/cmm (130-400) 09/11/22 18:46 MPV 10.6 fL (7.4-10.4) H 09/11/22 18:46 Neut % (Auto) 62.1 % 09/11/22 18:46 Lymph % (Auto) 23.1 % 09/11/22 18:46 [place] % (Auto) 11.1 % 09/11/22 18:46 Eos % (Auto) 2.4 % 09/11/22 18:46 Baso % (Auto) 0.7 % 09/11/22 18:46 Neut # (Auto) 7.37 10^3/uL (1.8-7.7) 09/11/22 18:46 Lymph # (Auto) 2.7 10^3/uL (0.8-4.8) 09/11/22 18:46 [place] # (Auto) 1.3 10^3/uL (0.2-0.9) H 09/11/22 18:46 Eos # (Auto) 0.3 10^3/uL (0.0-0.8) 09/11/22 18:46 Baso # (Auto) 0.1 10^3/uL (0.0-0.1) 09/11/22 18:46 Nucleated RBC % (auto) 0 % 09/11/22 18:46 Nucleated RBCs # 0.0 /100WBC 09/11/22 18:46 PT 15.00 SECONDS (12.1-14.9) H 09/11/22 18:46 INR 1.14 (0.8-1.2) 09/11/22 18:46 APTT 32.2 SECONDS (23.9-36.7) 09/11/22 18:46 Specimen Type Venous 09/11/22 18:37 Sample Site Not specified 09/11/22 18:37 Mariano Test N/a 09/11/22 18:37 VBG pH 7.43 (7.32-7.42) H 09/11/22 18:37 VBG pCO2 41.8 mmHg (41-51) 09/11/22 18:37 VBG pO2 43.0 mmHg (25-40) H 09/11/22 18:37 VBG HCO3 27.8 mmol/L (24-28) 09/11/22 18:37 VBG Base Excess 3.2 mmol/L (-3.0-3.0) H 09/11/22 18:37 VBG Hematocrit 21.1 % (42-52) L 09/11/22 18:37 O2 Delivery Device Nc 09/11/22 18:37 O2 Liters/Min 3.0 % 09/11/22 18:37 FiO2 32.0 % 09/11/22 18:37 Inside Sales Territory Manager ID Amh 09/11/22 18:37 Sodium 139 mmol/L (136-145) 09/11/22 18:46 Potassium 4.3 mmol/L (3.5-5.1) 09/11/22 18:46 Chloride 100 mmol/L (98-107) 09/11/22 18:46 Carbon Dioxide 26 mmol/L (22-29) 09/11/22 18:46 Anion Gap 17.3 (5-19) 09/11/22 18:46 BUN 22 mg/dL (8-23) 09/11/22 18:46 Creatinine 1.0 mg/dL (0.7-1.2) 09/11/22 18:46 GFR Calculation Not Reportable 09/11/22 18:46 Glucose 105 mg/dL (65-115) 09/11/22 18:46 Calculated Osmolality 292 mOsm/kg (285-295) 09/11/22 18:46 Calcium 9.4 mg/dL (8.5-10.5) 09/11/22 18:46 Total Bilirubin 0.3 mg/dL (0.15-1.2) 09/11/22 18:46 AST 19 U/L (0-40) 09/11/22 18:46 ALT 19 U/L (0-41) 09/11/22 18:46 Alkaline Phosphatase 134 U/L (40-130) H 09/11/22 18:46 Troponin T Gen 5 ng/L 11 ng/L (0-15) 09/11/22 18:46 NT-Pro-B Natriuret Pep 765 pg/mL (0-450) H 09/11/22 18:46 Total Protein 7.0 g/dL (6.6-8.7) 09/11/22 18:46 Albumin 4.0 g/dL (3.5-5.2) 09/11/22 18:46 Globulin 3.0 g/dL (1.3-4.6) 09/11/22 18:46 Discharge Plan Discharge Patient Disposition: Placed in Observation Admit Provider: Maximiliano Arteaga Clinical Impression: Pneumonia, Acute and chronic respiratory failure with hypoxia, Leukocytosis, Tachycardia Coding Level of Care Code ED Line Servicer for Robert Garcia
--- NOTE | 2022-09-11 18:35 | ECG_ITS ---
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 Measurements Intervals [place] Rate: 92 P: 75 NE: 177 QRS: 64 QRSD: 141 T: 101 QT: 378 QTc: 468 Interpretive Statements SINUS RHYTHM WITH FREQUENT VENTRICULAR PREMATURE COMPLEXES LEFT BUNDLE BRANCH BLOCK [120+ ms QRS DURATION, 80+ ms Q/S IN V1/V2, 85+ ms R IN I/aVL/V5/V6] Compared to ECG 07/16/2022 13:30:41 Ventricular premature complex(es) now present Electronically Signed On 09-11-2022 20:56:19 MAIL SORTER AND DELIVERY by Lauren Spangler M.D. [id number]
[2022-09-11 18:50] LABS: Blood Gas Operator Identificat AMH; Blood Gas Sample Site Not specified; Blood Gas Sample Type Venous; Oxygen Device NC
[2022-09-11 18:53] LABS: pH VBG 7.43 (7.32-7.42)
[2022-09-11 18:54] LABS: Base Excess VBG 3.2 mmol/L (-3.0-3.0); HCO3 VBG 27.8 mmol/L (24-28); PCO2 VBG 41.8 mmHg (41-51); Venous Blood Gas Hematocrit 21.1 % (42-52)
[2022-09-11 18:55] LABS: Basophils # 0.1 10^3/uL (0.0-0.1); Basophils % 0.7 %; Eosinophils # 0.3 10^3/uL (0.0-0.8); Eosinophils % 2.4 %; Hematocrit 44.1 % (42.0-52.0); Hemoglobin 13.9 g/dL (11.7-16.6); Lymphocytes # 2.7 10^3/uL (0.8-4.8); Lymphocytes % 23.1 %; Mean Corpuscular HGB Conc 31.5 g/dL (30.0-36.0); Mean Corpuscular Hemoglobin 26.2 pg (28.0-34.0); Mean Corpuscular Volume 83.1 fl (80-94); Mean Platelet Volume 10.6 fL (7.4-10.4); Monocytes # 1.3 10^3/uL (0.2-0.9); Monocytes % 11.1 %; Neutrophils # 7.37 10^3/uL (1.8-7.7); Neutrophils % 62.1 %; Nucleated Red Blood Cells % 0 %; Platelet Count 226 10^3/cmm (130-400); Red Blood Count 5.31 10^6/uL (4.1-5.3); Red Cell Distribution Width 16.1 % (12.1-15.1); White Blood Count 11.9 10^3/uL (4.0-10.0)
--- NOTE | 2022-09-11 18:57 | PC.NURSE ---
Report taken from Chirag ALEX. Patient alert and orientated. No signs of distress, resting comfortably.
[2022-09-11 19:06] LABS: INR 1.14 (0.8-1.2)
[2022-09-11 19:07] LABS: Partial Thromboplastin Time 32.2 SECONDS (23.9-36.7)
[2022-09-11 19:14] LABS: Troponin T (5th) Once 11 ng/L (0-15)
[2022-09-11 19:24] LABS: Alanine Aminotransferase 19 U/L (0-41); Alkaline Phosphatase 134 U/L (40-130); Anion Gap 17.3 (5-19); Aspartate Amino Transferase 19 U/L (0-40); Blood Urea Nitrogen 22 mg/dL (8-23); Calcium 9.4 mg/dL (8.5-10.5); Carbon Dioxide 26 mmol/L (22-29); Chloride 100 mmol/L (98-107); Glucose 105 mg/dL (65-115); NT Pro B Type Natriuretic Pept 765 pg/mL (0-450); Osmolality Calculated 292 mOsm/kg (285-295); Potassium 4.3 mmol/L (3.5-5.1); Sodium 139 mmol/L (136-145); Total Bilirubin 0.3 mg/dL (0.15-1.2)
--- NOTE | 2022-09-11 19:39 | CTR_ITS ---
PROCEDURE INFORMATION: Exam: CT Chest With Contrast; Diagnostic Exam date and time: 09/11/2022 7:59 PM Age: 77 years old Clinical indication: Cough and shortness of breath; Additional info: Copd, HX pneu with worsening hypoxia, chronic 4l nasal canula for copd, had abx for pneu without TECHNIQUE: Imaging protocol: Diagnostic computed tomography of the chest with contrast. Radiation optimization: All CT scans at this facility use at least one of these dose optimization techniques: automated exposure control; mA and/or kV adjustment per patient size (includes targeted exams where dose is matched to clinical indication); or iterative reconstruction. Contrast material: OMNIPAQUE 350; Contrast volume: 95 ml; Contrast route: INTRAVENOUS (IV); Other protocol: This patient has received [address] and 0 known cardiac nuclear medicine studies in the 12 months prior to the current study. COMPARISON: 1. CT chest wo con [id number] 12/07/2021 9:[address] chest abdpel w/*[id number] 10/15/2020 9:50 PM RADIATION DOSE METRICS: Total DLP (mGy-cm): 311 FINDINGS: Lungs: There is severe bilateral renner acinar emphysema with upper lobe predominance. There is irregular opacity at both apices consistent with scarring not significantly changed There is increased interstitial thickening in the lower lobes compared with 12/07/2021 and also new interstitial thickening in the lingula and middle lobe with consolidation and air bronchograms in both lower lobes consistent with pneumonia. Pleural spaces: There is small bilateral pleural effusion more on the left. Heart: Unremarkable. No cardiomegaly. No pericardial effusion. Lymph nodes: There are small paratracheal lymph nodes which are slightly more prominent than on 12/07/2021, possibly representing reactive lymph nodes.. There is minimal hilar adenopathy which is new AP window lymph node measuring 15 x 19 mm slightly larger than on 12/07/2021, possibly reactive lymph nodes. Vasculature: There is no thoracic aortic aneurysm or dissection. While this exam is not done according to the pulmonary angiogram protocol there is no evidence for pulmonary embolism. Diaphragm: There is a small hiatal hernia. Bones/joints: Unremarkable. No acute fracture. Soft tissues: Unremarkable. CT/CT chest w con* [id number] IMPRESSION: 1. Severe emphysema 2. Bilateral lower lobe pneumonia 3. Mild mediastinal and hilar adenopathy, likely reactive. 4. Stable appearing scarring in the pulmonary apices. COMMENTS: In the absence of a history or active diagnosis of lung cancer, it is recommended that this patient with emphysema be evaluated for enrollment in a low dose CT lung cancer screening program.
--- NOTE | 2022-09-11 21:26 | P.HP_ITS ---
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 Patient is experiencing significant desaturation with minimal exertion. CT chest with contrast: Has shown chronic severe emphysema with bilateral lower lobe pneumonia. Pertinent labs: WBC 11.9, H&H 13 and 44, PLT : 226 , serum sodium 139 serum potassium 4.3, BUN 22 serum creatinine 1 proBNP 765 Patient was given 1 dose of Vanco and Zosyn in the ER. Review of Systems General: Reports: 10 or more systems reviewed and unremarkable except in HPI and below Const: Denies: fever(s), chills, body aches, change in appetite or diaphoresis Card: Denies: palpitations, edema, swelling of feet/ankles, dyspnea on exertion, orthopnea or leg pain with exertion Resp: Reports: dyspnea and productive cough; Denies: wheezing or pain on inspiration GI: Denies: abdominal pain, nausea, vomiting, diarrhea or constipation : Denies: flank pain or difficulty urinating Musc: Denies: back pain, extremity pain or extremity swelling Neuro: Denies: headache(s), difficulty walking or confusion Medications/Allergies Home Medications Medication Instructions Recorded Confirmed Last Taken Type alendronate 70 mg tablet (Fosamax) 70 mg PO Q7D 08/23/19 09/11/22 07/14/22 History apixaban 5 mg tablet (Eliquis) 5 mg PO BID@07,21 08/23/19 09/11/22 07/16/22 History atorvastatin 20 mg tablet 20 mg PO BEDTIME 08/23/19 09/11/22 07/15/22 History potassium chloride 20 mEq 20 meq PO DAILY@07 08/02/20 09/11/22 07/16/22 History tablet,extended release calcium carbonate 500 mg-vitamin 500 tab PO DAILY@07 10/16/20 09/11/22 07/16/22 History D3 5 mcg (200 unit) tablet (Oyster Shell Calcium-Vitamin D3) famotidine 20 mg tablet 20 mg PO DAILY 10/16/20 09/11/22 07/16/22 History glimepiride 2 mg tablet 1 mg PO DAILY@07 10/16/20 09/11/22 07/16/22 History levalbuterol tartrate 45 1 puff inhalation Q6H PRN 10/16/20 09/11/22 10/15/20 18:00 History mcg/actuation aerosol inhaler Shortness Of Breath ##0 (Xopenex HFA) roflumilast 500 mcg tablet 500 mcg PO DAILY@10/16/20 09/11/22 07/16/22 History (Daliresp) ropinirole 0.25 mg tablet 0.25 mg PO BEDTIME 10/16/20 09/11/22 07/15/22 History tamsulosin 0.4 mg capsule 0.4 mg PO DAILY 10/16/20 09/11/22 07/16/22 History ascorbic acid (vitamin C) 500 mg 500 mg PO BID 10/17/21 09/11/22 07/16/22 History capsule cholecalciferol (vitamin D3) 75 50 mcg PO DAILY 10/17/21 09/11/22 07/16/22 History mcg (3,000 unit) tablet zinc acetate 50 mg (zinc) capsule 50 mg PO DAILY 10/17/21 09/11/22 07/16/22 History (Galzin) budesonide 0.25 mg/2 mL suspension 0.5 mg (4 mL) inhalation BID #10 mL 10/24/21 09/11/22 07/16/22 Rx for nebulization (Pulmicort) revefenacin 175 mcg/3 mL solution 175 mcg (3 mL) inhalation DAILY 10/24/21 09/11/22 07/16/22 Rx for nebulization (Yupelri) #90 mL arformoterol 15 mcg/2 mL solution 2 ml inhalation BID 30 days #120 mL 10/29/21 09/11/22 07/16/22 Rx for nebulization empagliflozin 10 mg tablet 10 mg PO DAILY 12/10/21 09/11/22 07/16/22 History (Jardiance) guaifenesin 400 mg tablet 400 mg PO Q4H PRN Congestion 07/16/22 09/11/22 07/16/22 History metoprolol succinate 25 mg 25 mg PO DAILY 07/16/22 09/11/22 07/16/22 History tablet,extended release 24 hr metoprolol succinate 50 mg 50 mg PO DAILY 07/16/22 09/11/22 07/16/22 History tablet,extended release 24 hr Allergies Allergy/AdvReac Type Severity Reaction Status Date / Time formoterol Allergy Unknown Unknown Verified 09/11/22 17:24 simvastatin AdvReac Intermediate ADR-Cramping Verified 09/11/22 17:24 of the Muscles PFSH Acute PFSH: Medical History (Updated 09/11/22 @ 21:28 by Maximiliano Arteaga MD) Anticoagulation adequate Eliquis ASHD (arteriosclerotic heart disease) Atrial fibrillation BPH (benign prostatic hyperplasia) Carotid stenosis, bilateral CHF (congestive heart failure) CKD (chronic kidney disease) COPD (chronic obstructive pulmonary disease) COPD exacerbation Diabetes 1.5, managed as type 2 Diastolic CHF, acute on chronic Fracture of second metatarsal bone GERD (gastroesophageal reflux disease) Heart failure with preserved ejection fraction History of 2019 novel coronavirus disease (COVID-19) (~07/2020) History of echocardiogram (~11/2019) EF 50-55%, no valvular abnormalities, normal pulmonary pressures History of nonmelanoma skin cancer HTN (hypertension) Hyperlipidemia LBBB (left bundle branch block) On home oxygen therapy 4L MOSHE (obstructive sleep apnea) Bipap 09/03 Osteoporosis alendronate Pneumonia Pulmonary emphysema with fibrosis of lung RLS (restless legs syndrome) Surgical History S/P carotid endarterectomy S/P carpal tunnel release S/P sinus surgery Family History Mother , AGE 64 Diabetes Cancer Father , AGE 62 CAD (coronary artery disease) Social History Smoking and tobacco status: former smoker Quit status (tobacco): has quit using tobacco Year quit tobacco: 1999 [id number] Second hand smoke exposure: No Smoking risk assessment/counseling performed?: Yes Alcohol intake: never Lives independently: Yes Household members: spouse Housing: House Marital status: service: Yes branch: [employer] Current occupational status: retired Pets and animals: No History of recent travel: No Current gender identity: Male Vitals/I&O/Wt Last Vital Signs Temp 98.1 F 09/11/22 17:24 Pulse 104 H 09/11/22 20:00 Resp 16 09/11/22 18:30 BP 170/110 09/11/22 20:30 Pulse Ox 99 09/11/22 20:30 O2 Del Method 09/11/22 18:30 O2 Flow Rate 3 09/11/22 18:30 Weight last 48 hrs Weight 70.307 kg Physical Exam Const: COMMON NORMALS: patient oriented x3 HENMT: COMMON NORMALS: normocephalic and atraumatic HEAD & SCALP: normocephalic and atraumatic Resp: COMMON NORMALS: clear to auscultation bilaterally AUSCULTATION: clear to auscultation bilaterally Cardio: COMMON NORMALS: regular rate, regular rhythm, S1 normal heart sound present, S2 normal heart sound present, No gallops present (Cardio), No murmurs present (Cardio), No rub (Cardio) and Peripheral pulses 2+ throughout RATE: regular rate RHYTHM: regular rhythm HEART SOUNDS: S1 normal heart sound present and S2 normal heart sound present PERIPHERAL PULSES: Peripheral pulses 2+ throughout GI: COMMON NORMALS: Normal to inspection, nondistended, normoactive bowel sounds present, Soft to palpation, non-tender, No hepatosplenomegaly present and no masses AUSCULTATION: Yes normoactive bowel sounds PALPATION: Yes Soft t o palpation and Yes No hepatosplenomegaly present RECTAL EXAM: Yes deferred Extremity: COMMON NORMALS: no clubbing, cyanosis or edema and no pedal edema Neuro: COMMON NORMALS: patient oriented x3 Data 09/11/22 18:46 09/11/22 18:46 A&P Assessment and plan (1) Pneumonia: (2) Acute and chronic respiratory failure with hypoxia: (3) Diabetes 1.5, managed as type 2: (4) Atrial fibrillation: (5) CHF (congestive heart failure): (6) COPD (chronic obstructive pulmonary disease): Plan 77 year old male with a past medical history of COPD, HFpEF, chronically on 4 L, on BiPAP at home, history of atrial fibrillation on Eliquis, hypertension, hyperlipidemia, CAD, bilateral carotid artery stenosis, CKD, type 2 diabetes, history of left bundle branch block, MOSHE, 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 Assessment: Acute on chronic hypoxic respiratory failure secondary to pneumonia: CT chest with contrast: Has shown chronic severe emphysema with bilateral lower lobe pneumonia. Patient has significant shortness of breath, cough with productive sputum, significant desaturation with minimal exertion, reports requiring supplemental oxygen which is higher than his baseline. Follow blood culture Sputum Gram stain and culture MRSA PCR Urine Legionella antigen Bacterial antigen panel Currently he has been empirically kept on broad-spectrum antibiotics Vanco and Zosyn. Failed outpatient levofloxacin course. Supplemental oxygen as needed DuoNebs IS/FV History of COPD: Gold class D: Chronically on 4 L of oxygen. Continue DuoNebs Budesonide inhaler History of paroxysmal atrial fibrillation: Continue metoprolol Continue Eliquis History of heart failure with preserved ejection fraction. Currently compensated euvolemic Monitor intake output charting Monitor electrolytes CODE STATUS: Full code DVT prophylaxis not needed on Eliquis Attestations Medical Necessity Statement*: Patient is still in hospital for management of respiratory failure.Anticipated length of stay greater than 2 midnights. Coding Level of Care Code 33425 Diagnoses Pneumonia J18.9 Acute and chronic respiratory failure with hypoxia J96.21 Diabetes 1.5, managed as type 2 E13.9 Atrial fibrillation I48.91 CHF (congestive heart failure) I50.9 COPD (chronic obstructive pulmonary disease) J44.9
[2022-09-11] MEDS: piperacillin-tazobactam 3.375 GM in sodium chloride 0.9% (plus) 50 ML IV (21:41)
[2022-09-11 21:44] LABS: Lactic Sepsis W/Reflex 0.9 mmol/L (0.5-2.2)
[2022-09-11] MEDS: ipratropium-albuterol 3 mL Neb INHALATION (21:48)
[2022-09-11] MEDS: vancomycin 1,500 MG/300 ML PIGGYBACK 200 MG IV (21:57)
[2022-09-11 23:23] LABS: Adenovirus Not Detected (NOT DETECT); Chlamydia Pneumoniae Not Detected (NOT DETECT); Coronavirus 229E,HKU1,NL63,OC4 Not Detected (NOT DETECT); Human Metapneumovirus Not Detected (NOT DETECT); Human Rhinovirus/Enterovirus Not Detected (NOT DETECT); Influenza A Not Detected (NOT DETECT); Influenza A H1 Not Detected (NOT DETECT); Influenza A H1-2009 Not Detected (NOT DETECT); Influenza A H3 Not Detected (NOT DETECT); Influenza B Not Detected (NOT DETECT); Mycoplasma Pneumoniae Not Detected (NOT DETECT); Parainfluenza Virus Type 1 Not Detected (NOT DETECT); Parainfluenza Virus Type 2 Not Detected (NOT DETECT); Parainfluenza Virus Type 3 Not Detected (NOT DETECT); Parainfluenza Virus Type 4 Not Detected (NOT DETECT); Respiratory Syncytial Virus A Not Detected (NOT DETECT); Respiratory Syncytial Virus B Not Detected (NOT DETECT); SARS-COV-2 Not Detected (NOT DETECT)
[2022-09-12] VITALS (17 sets, daily range): BP systolic 121–161; BP diastolic 70–81; PULSE 40–130; RESP 16–24; TEMP 36.3–37.2; O2SAT 95–98
[2022-09-12 05:16] LABS: Basophils # 0.1 10^3/uL (0.0-0.1); Basophils % 0.6 %; Eosinophils # 0.3 10^3/uL (0.0-0.8); Eosinophils % 2.7 %; Hematocrit 38.2 % (42.0-52.0); Hemoglobin 11.9 g/dL (11.7-16.6); Lymphocytes # 2.3 10^3/uL (0.8-4.8); Lymphocytes % 22.9 %; Mean Corpuscular HGB Conc 31.2 g/dL (30.0-36.0); Mean Corpuscular Hemoglobin 26.3 pg (28.0-34.0); Mean Corpuscular Volume 84.5 fl (80-94); Mean Platelet Volume 11.2 fL (7.4-10.4); Monocytes # 1.3 10^3/uL (0.2-0.9); Monocytes % 12.9 %; Nucleated Red Blood Cells % 0 %; Platelet Count 212 10^3/cmm (130-400); Red Blood Count 4.52 10^6/uL (4.1-5.3); Red Cell Distribution Width 16.3 % (12.1-15.1); White Blood Count 10.2 10^3/uL (4.0-10.0)
[2022-09-12 05:46] LABS: Procalcitonin 0.08 ng/mL (0-0.5)
[2022-09-12 05:47] LABS: Alanine Aminotransferase 16 U/L (0-41); Albumin Level 3.4 g/dL (3.5-5.2); Alkaline Phosphatase 108 U/L (40-130); Aspartate Amino Transferase 16 U/L (0-40); Blood Urea Nitrogen 20 mg/dL (8-23); Calcium 8.8 mg/dL (8.5-10.5); Carbon Dioxide 25 mmol/L (22-29); Chloride 99 mmol/L (98-107); Globulin 3.3 g/dL (1.3-4.6); Glucose 81 mg/dL (65-115); Magnesium 1.9 mg/dL (1.7-2.3); Osmolality Calculated 286 mOsm/kg (285-295); Sodium 137 mmol/L (136-145); Total Bilirubin 0.3 mg/dL (0.15-1.2); Total Protein 6.7 g/dL (6.6-8.7)
[2022-09-12] MEDS: piperacillin-tazobactam 3.375 GM in sodium chloride 0.9% (plus) 50 ML IV ×2 (05:54→18:12)
[2022-09-12] MEDS: apixaban 5 mg Tablet PO ×2 (06:09→21:23)
[2022-09-12 06:45] LABS: Glucose Point of Care 89 mg/dL (70-110)
[2022-09-12] MEDS: ipratropium-albuterol 3 mL Neb INHALATION ×4 (07:35→21:44)
[2022-09-12] MEDS: budesonide 0.5 mg/2 mL Neb INHALATION ×2 (07:35→21:44)
[2022-09-12] MEDS: metoprolol succinate ER (24 HR) 50 mg Tablet PO (10:42)
[2022-09-12] MEDS: tamsulosin 0.4 mg Capsule PO (10:42)
[2022-09-12 11:14] LABS: Glucose Point of Care 116 mg/dL (70-110)
--- NOTE | 2022-09-12 15:37 | PC.RESP ---
walked pt on 4 lpm. Pt walked about 200 feet. O2 sat dropped to 86%. Pt used Purse Lip breathing while walked. Pt returned to bed to rest. O2 sat improved to 94% within 2 min.
[2022-09-12] MEDS: vancomycin 1,250 MG/250 ML PIGGYBACK 250 MG IV (15:53)
[2022-09-12 16:46] LABS: Glucose Point of Care 119 mg/dL (70-110)
[2022-09-12 21:03] LABS: Glucose Point of Care 157 mg/dL (70-110)
[2022-09-12] MEDS: atorvastatin 40 mg Tablet 20 MG PO (21:23)
[2022-09-12] MEDS: insulin lispro 100 unit/1 mL SUBCUT (21:24)
--- NOTE | 2022-09-12 21:27 | P.PN_ITS ---
Subjective Subjective: He states he is doing slightly better today. Some cough, but unable to bring up much phlegm. Tried to give a sample. Vitals/I&O/Wt Last Vital Signs Temp 98.1 F 09/12/22 20:00 Pulse 68 09/12/22 20:00 Resp 16 09/12/22 20:00 BP 131/71 09/12/22 20:00 Pulse Ox 96 09/12/22 20:00 O2 Del Method 09/12/22 20:00 O2 Flow Rate 4 09/12/22 20:00 09/12/22 09/12/22 09/12/22 06:59 14:59 22:59 Intake Total 700 / 700 610 / 1310 Output Total 895 / 895 350 / 350 Balance -895 / -895 350 / 350 610 / 960 Weight last 48 hrs Weight 70.307 kg Physical Exam Const: COMMON NORMALS: patient oriented x3 and alert GENERAL APPEARANCE: cooperative ORIENTATION/CONSCIOUSNESS: Yes awake HENMT: COMMON NORMALS: oropharynx normal Neck/C-Spine: COMMON NORMALS: no JVD Resp: COMMON NORMALS: normal respiratory effort AUSCULTATION: diminished l brendan sounds Cardio: COMMON NORMALS: no JVD, regular rhythm, S1 normal heart sound present, S2 normal heart sound present and No murmurs present (Cardio) RHYTHM: regular rhythm HEART SOUNDS: S1 normal heart sound present and S2 normal heart sound present GI: COMMON NORMALS: Normal to inspection, nondistended, normoactive bowel sounds present, Soft to palpation and non-tender PALPATION: Yes Soft to palpation Extremity: COMMON NORMALS: no joint enlargement and no pedal edema Neuro: COMMON NORMALS: patient oriented x3 and moves all extremities SENSORIUM/ORIENTATION: Yes alert Skin: COMMON NORMALS: no rashes or lesions noted GENERAL SKIN EXAM: no rashes or lesions noted Data 09/12/22 04:13 09/12/22 04:13 Micro: Microbiology 09/11/22 21:13 Blood Culture - Preliminary Blood NEGATIVE TO DATE 09/11/22 21:09 Blood Culture - Preliminary Blood NEGATIVE TO DATE 09/11/22 20:18 Sputum Culture - Preliminary Sputum - Expectorated Sputum 09/11/22 21:55 MRSA Culture - Final Nose 09/11/22 21:55 Legionella Urinary Antigen - Final Urine,Voided Bacterial Antigens - Final A&P Assessment and plan (1) Acute and chronic respiratory failure with hypoxia: With some improvement subjectively. Currently on 4 L nasal cannula. Desaturating with exertion on 4 L down to 86%. Continue treatment of pneumonia, COPD exacerbation with IV antibiotics currently, having failed outpatient treatment previously. Continue monitoring of oxygenation with hypoxia, increased oxygen requirement. Continue Zosyn, vancomycin. Continue breathing treatments. Continue inhaled steroid. Acetylcysteine. Discussed with his dietary service aide. MRSA PCR requested. Urine bacterial antigens requested Follow-up blood culture. Given very scant sputum and nonresolving pneumonia requesting into sputum with RT for sample. Reviewed overnight physician documentation. (2) Pneumonia: (3) Diabetes 1.5, managed as type 2: (4) Atrial fibrillation: (5) CHF (congestive heart failure): (6) COPD (chronic obstructive pulmonary disease): Plan History of COPD: Gold class D: Chronically on 4 L of oxygen. Continue DuoNebs Budesonide inhaler History of paroxysmal atrial fibrillation: Continue metoprolol Continue Eliquis History of heart failure with preserved ejection fraction. Currently compensated euvolemic Monitor intake output charting Monitor electrolytes CODE STATUS: Full code DVT prophylaxis not needed on Eliquis Attestations Medical Necessity Statement*: Continue admission for assessment of management of pneumonia which failed outpatient treatment and admitted with underlying COPD with chronic hypoxia. Diagnoses Acute and chronic respiratory failure with hypoxia J96.21 Pneumonia J18.9 Diabetes 1.5, managed as type 2 E13.9 Atrial fibrillation I48.91 CHF (congestive heart failure) I50.9 COPD (chronic obstructive pulmonary disease) J44.9
[2022-09-12] MEDS: acetylcysteine 200 mg/mL SDV 4 mL 100 MG INHALATION (21:44)
[2022-09-12] MEDS: sodium chloride 3.5% neb 4 mL Neb INHALATION (21:44)
[2022-09-12 23:37] LABS: Glucose Point of Care 93 mg/dL (70-110)
--- NOTE | 2022-09-12 23:40 | ECG_ITS ---
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 Measurements Intervals [place] Rate: 139 P: 0 [place]: 0 QRS: 52 QRSD: 133 T: 146 QT: 315 QTc: 480 Interpretive Statements ATRIAL FIBRILLATION WITH RAPID VENTRICULAR RESPONSE INTRAVENTRICULAR CONDUCTION DELAY [130+ ms QRS DURATION] POSSIBLE ANTERIOR MYOCARDIAL INFARCTION , OF INDETERMINATE AGE [30 ms Q WAVE IN V3/V4, OR R < 0.2 mV IN V4] Compared to ECG 09/11/2022 18:35:32 Intraventricular conduction delay now present Myocardial infarct finding now present Sinus rhythm no longer present Ventricular premature complex(es) no longer present Left bundle-branch block no longer present Electronically Signed On 09-13-2022 23:18:34 BRAND COMMUNICATIONS MANAGER by Lauren Spangler M.D. [id number]
[2022-09-12] MEDS: dilTIAZem 5 mg/mL SDV 5 mL 10 MG IVP (23:50)
[2022-09-13] VITALS (22 sets, daily range): BP systolic 113–179; BP diastolic 65–97; PULSE 60–139; RESP 16–22; TEMP 36.3–36.9; O2SAT 88–99
--- NOTE | 2022-09-13 00:35 | PM.MISC ---
Miscellaneous Note Note: Went into A.FIB With RVR : Received Cardizem 10 mg I.V Push as well as metoprolol.T :50 MG PO ONCE. Rhthym strip also showed a roughly 3 sec pause, initially.
[2022-09-13] MEDS: metoprolol tartrate 50 mg Tablet PO (00:50)
[2022-09-13] MEDS: piperacillin-tazobactam 3.375 GM in sodium chloride 0.9% (plus) 50 ML IV ×2 (03:00→17:13)
[2022-09-13 05:04] LABS: Basophils # 0.1 10^3/uL (0.0-0.1); Eosinophils # 0.4 10^3/uL (0.0-0.8); Eosinophils % 4.2 %; Hematocrit 41.6 % (42.0-52.0); Hemoglobin 12.9 g/dL (11.7-16.6); Lymphocytes # 2.1 10^3/uL (0.8-4.8); Lymphocytes % 24.2 %; Mean Corpuscular Hemoglobin 26.4 pg (28.0-34.0); Mean Corpuscular Volume 85.1 fl (80-94); Mean Platelet Volume 11.1 fL (7.4-10.4); Monocytes # 1.1 10^3/uL (0.2-0.9); Monocytes % 12.2 %; Neutrophils # 4.93 10^3/uL (1.8-7.7); Neutrophils % 57.6 %; Nucleated Red Blood Cells % 0 %; Platelet Count 210 10^3/cmm (130-400); Red Blood Count 4.89 10^6/uL (4.1-5.3); Red Cell Distribution Width 16.4 % (12.1-15.1); White Blood Count 8.6 10^3/uL (4.0-10.0)
[2022-09-13 05:30] LABS: Alanine Aminotransferase 13 U/L (0-41); Albumin Level 3.1 g/dL (3.5-5.2); Alkaline Phosphatase 99 U/L (40-130); Anion Gap 13.5 (5-19); Aspartate Amino Transferase 16 U/L (0-40); Blood Urea Nitrogen 21 mg/dL (8-23); Calcium 8.8 mg/dL (8.5-10.5); Carbon Dioxide 25 mmol/L (22-29); Chloride 106 mmol/L (98-107); Globulin 3.4 g/dL (1.3-4.6); Glucose 102 mg/dL (65-115); Osmolality Calculated 293 mOsm/kg (285-295); Potassium 4.5 mmol/L (3.5-5.1); Sodium 140 mmol/L (136-145); Total Bilirubin 0.4 mg/dL (0.15-1.2); Total Protein 6.5 g/dL (6.6-8.7)
[2022-09-13] MEDS: apixaban 5 mg Tablet PO ×2 (06:06→21:38)
[2022-09-13 06:36] LABS: Glucose Point of Care 113 mg/dL (70-110)
[2022-09-13] MEDS: metoprolol tartrate 50 mg Tablet 100 MG PO (06:43)
[2022-09-13] MEDS: budesonide 0.5 mg/2 mL Neb INHALATION ×2 (07:44→20:02)
[2022-09-13] MEDS: sodium chloride 3.5% neb 4 mL Neb INHALATION ×3 (07:44→20:02)
[2022-09-13] MEDS: acetylcysteine 200 mg/mL SDV 4 mL 100 MG INHALATION ×3 (07:44→20:01)
[2022-09-13] MEDS: ipratropium-albuterol 3 mL Neb INHALATION ×4 (07:44→20:01)
--- NOTE | 2022-09-13 08:19 | ECG_ITS ---
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 Measurements Intervals [place] Rate: 69 P: 73 SD: 176 QRS: 25 QRSD: 133 T: 116 QT: 408 QTc: 437 Interpretive Statements SINUS RHYTHM WITH OCCASIONAL VENTRICULAR PREMATURE COMPLEXES WITH OCCASIONAL SUPRAVENTRICULAR PREMATURE COMPLEXES POSSIBLE LEFT ATRIAL ENLARGEMENT [-0.1mV P-WAVE IN V1/V2] LEFT BUNDLE BRANCH BLOCK [120+ ms QRS DURATION, 80+ ms Q/S IN V1/V2, 85+ ms R IN I/aVL/V5/V6] Compared to ECG 09/12/2022 23:40:05 Ventricular premature complex(es) now present Left bundle-branch block now present Atrial fibrillation no longer present Intraventricular conduction delay no longer present Myocardial infarct finding no longer present Electronically Signed On 09-13-2022 16:46:40 GULLET SLITTER by Lauren Spangler M.D. [id number]
[2022-09-13 08:23] LABS: Glucose Point of Care 122 mg/dL (70-110)
--- NOTE | 2022-09-13 08:41 | USCV_ITS ---
Jonathan Sultana Age: 77 Gender: M : 1945 Exam Date: 09/13/2022 09:58 Ordering Phys: El Reeves MD Technologist: BARBARA [place] [facility] [place]: syncope BP: / HR: Rhythm: Other Technical Quality: Technically difficult study MEASUREMENTS (Male / Female) Normal Values 2D ECHO LV Diastolic Diameter PLAX 5.3 cm 4.2 - 5.9 / 3.9 - 5.3 cm LV Systolic Diameter PLAX 4.3 cm IVS Diastolic Thickness 0.8 cm 0.6 - 1.0 / 0.6 - 0.9 cm IVS Systolic Thickness 0.9 cm LVPW Diastolic Thickness 0.8 cm 0.6 - 1.0 / 0.6 - 0.9 cm LVPW Systolic Thickness 0.8 cm LVOT Diameter 2.3 cm LV Ejection Fraction 2D Teich 36.7 % LV Ejection Fraction MOD 2C 22.5 % LV Ejection Fraction 2C AL 21.5 % LA Diameter 3.9 cm IVC Diameter 1.7 cm M-MODE Aortic Annulus Diameter 2.7 cm LA Ao Ratio MM 1.6 MV E Point Septal Separation 0.7 cm DOPPLER AV Peak Velocity 105.0 cm/s LVOT Peak Velocity 61.0 cm/s AV Area Cont Eq vti 2.6 cm squared AV Area Cont Eq pk 2.5 cm squared MV Area PHT 2.6 cm squared Mitral E to A Ratio 0.7 MV E' Velocity 35.5 cm/s Mitral E to MV E' Ratio 7.5 Mitral E to LV E' Lateral Ratio 5.4 Mitral E to LV E' Septal Ratio 12.5 TR Peak Velocity 153.0 cm/s TR Peak Gradient 9.4 mmHg TV Peak E Velocity 68.0 cm/s FINDINGS Left Ventricle Normal left ventricular size with diminished fusion fraction 40%. Diffuse hypokinesia of the left ventricule.abnormal septal motion consistent with conduction abnormality. Right Ventricle Normal right ventricular size and systolic function. Right Atrium The right atrium is normal in size. Left Atrium The left atrium is normal in size. Mitral Valve Trace to mild mitral regurgitation. Thickened mitral valve. Aortic Valve Thickened aortic valve. Tricuspid Valve No gross abnormalities noted Pulmonic Valve No gross abnormalities noted Pericardium No pericardial effusion. Aorta Normal aortic annulus size. IVC The inferior vena cava appears normal. CONCLUSIONS Normal left ventricular size with diminished fusion fraction 40%. Diffuse hypokinesia of the left ventricle Trace to mild mitral regurgitation. Thickened mitral valve. Thickened aortic valve. There is no pericardial effusion. There are no intracardiac masses. Compared to the study from 10/18/2020, there is a drop in the LV ejection fraction from 65 to 40% Dr. Reeves was informed about these findings Dr Florian Bob MD [facility] (Electronically Signed) Final Date: 14 September 2022 18:37 S
[2022-09-13 09:19] LABS: Troponin(5th) Baseline 25 ng/L (0-15)
--- NOTE | 2022-09-13 10:37 | PC.NURSE ---
HELD METOPROLOL AND TAMSULOSIN HELD PER
--- NOTE | 2022-09-13 10:41 | ECG_ITS ---
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 Measurements Intervals [place] Rate: 71 P: 73 NE: 169 QRS: 32 QRSD: 137 T: 118 QT: 431 QTc: 471 Interpretive Statements SINUS RHYTHM WITH OCCASIONAL VENTRICULAR PREMATURE COMPLEXES WITH OCCASIONAL SUPRAVENTRICULAR PREMATURE COMPLEXES LEFT BUNDLE BRANCH BLOCK [120+ ms QRS DURATION, 80+ ms Q/S IN V1/V2, 85+ ms R IN I/aVL/V5/V6] Compared to ECG 09/13/2022 08:22:30 No significant changes Electronically Signed On 09-13-2022 17:03:49 FUEL DISTRIBUTION SYSTEM OPERATOR by Lauren Spangler M.D. [id number]
[2022-09-13] MEDS: perflutren protein-a microsphr 0.22 mg/mL SDV 3 mL IV (10:50)
--- NOTE | 2022-09-13 11:08 | PC.CHAP ---
Pastoral Care Encounter/Spiritual Assessment Type of Contact [] Declined carpet inspector visit [] Patient/Family/Request visit [] Outpatient visit [] Follow-up visit [] Physician referral [] Code/Alert [x] Routine visit [] Staff referral [] Actively dying [] Patient sleeping [x] Family support [] [] Out of room [] Palliative care [] [] Receiving care in room [] Pre-surgical visit [] Trauma [] Long length of stay [] ICU visit [] Other: Relational/Emotional Strength [x] Patient feels connected with others/family/visitors/staff [] Distress [] Loneliness/isolation [] Abandonment Spirituality of Patient [x] Person of Shi [] Attends Baptism of their Shi [x] Believes in Prayer [] Reads Bible or Judaism materials [] There are Spiritual issues to be addressed Security And Compliance Project Manager Interventions [x] Prayer [x] Active listening [x] Non-anxious presence [] Spiritual/emotional support [] Crisis/trauma care [] Spiritual counseling [] Bereavement support [] Provided bereavement packet [] Provided Bible/devotional materials [] Provided toy/stuffed animal, coloring book to patient or family member [] Provided Communion [] Anointing/Butternut [] Salvation [x] Completed spiritual assessment [] Other: Impact on Illness or Injury [] Angry [] Fearful [] Anxious [] Often cries [] Exhaustion [] Unable to work [] Unable to attend congregation [] Unable to walk/stand [] Unable to read [] Unable to drive [] Unable to eat/drink [] Unable to sleep [] Unable to be with family [] Patient intubated [] Other: Summary Time spent with patient 10 min
[2022-09-13 11:15] LABS: Troponin 5 2HR 24.98 ng/L (0-15)
[2022-09-13 11:17] LABS: Troponin 5 2HR Delta -0.02 ABS# (0-10)
[2022-09-13 11:56] LABS: Glucose Point of Care 159 mg/dL (70-110)
[2022-09-13 12:23] LABS: Vancomycin Trough 10.8 ug/mL (10-15)
[2022-09-13] MEDS: vancomycin 1,250 MG/250 ML PIGGYBACK 250 MG IV (13:39)
--- NOTE | 2022-09-13 14:41 | ECG_ITS ---
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 Measurements Intervals [place] Rate: 73 P: 72 [place]: 168 QRS: 31 QRSD: 136 T: 119 QT: 394 QTc: 436 Interpretive Statements SINUS RHYTHM WITH OCCASIONAL VENTRICULAR PREMATURE COMPLEXES LEFT BUNDLE BRANCH BLOCK [120+ ms QRS DURATION, 80+ ms Q/S IN V1/V2, 85+ ms R IN I/aVL/V5/V6] Compared to ECG 09/13/2022 10:56:34 No significant changes Electronically Signed On 09-13-2022 17:02:54 ROLLED SEAT TRIMMER by Lauren Spangler M.D. [email or web address] at [email or web address] - Share Your [email or web address]![facility].crowdSPRING/store/[id number]
[2022-09-13 15:31] LABS: Troponin 5 6HR 23.01 ng/L (0-15)
[2022-09-13 15:37] LABS: Troponin 5 6HR Delta -1.99 ng/L (0-12)
[2022-09-13 17:56] LABS: Glucose Point of Care 172 mg/dL (70-110)
--- NOTE | 2022-09-13 18:25 | P.PN_ITS ---
Subjective Subjective: This morning he had a brief episode of decreased responsiveness with his head rolling backwards, accompanied by a tremor at that time, working upright after. He tells me that he remembers feeling lightheaded like he was about to go out . Seems this was witnessed by respiratory arrest during the breathing treatment. Vitals were obtained, heart rate, blood pressure and glucose were WNL. EKG obtained, with old LBBB, PVCs. Later on noted bigeminy. He denies chest pain. Having some shortness of breath. Vitals/I&O/Wt Last Vital Signs Temp 97.6 F 09/13/22 16:00 Pulse 76 09/13/22 16:00 Resp 16 09/13/22 16:00 BP 158/68 09/13/22 16:00 Pulse Ox 95 09/13/22 16:00 O2 Del Method 09/13/22 16:00 O2 Flow Rate 4 09/13/22 15:24 09/13/22 09/13/22 09/13/22 06:59 14:59 22:59 Intake Total 850 / 2210 290 / 290 490 / 780 Output Total 1000 / 1350 200 / 200 Balance -150 / 860 90 / 90 490 / 580 Physical Exam Const: COMMON NORMALS: patient oriented x3 and alert GENERAL APPEARANCE: cooperative ORIENTATION/CONSCIOUSNESS: Yes awake HENMT: COMMON NORMALS: oropharynx normal Neck/C-Spine: COMMON NORMALS: no JVD Resp: COMMON NORMALS: normal respiratory effort AUSCULTATION: wheezes and diminished lung sounds Cardio: COMMON NORMALS: no JVD, regular rhythm, S1 normal heart sound present, S2 normal heart sound present and No murmurs present (Cardio) RHYTHM: regular rhythm HEART SOUNDS: S1 normal heart sound present and S2 normal heart sound present GI: COMMON NORMALS: Normal to inspection, nondistended, normoactive bowel sounds present, Soft to palpation and non-tender PALPATION: Yes Soft to palpation Extremity: COMMON NORMALS: no joint enlargement and no pedal edema Neuro: COMMON NORMALS: patient oriented x3 and moves all extremities SENSORIUM/ORIENTATION: Yes alert Skin: COMMON NORMALS: no rashes or lesions noted GENERAL SKIN EXAM: no rashes or lesions noted Data 09/13/22 04:21 09/13/22 04:21 Micro: Microbiology 09/11/22 20:18 Sputum Culture - Final Sputum - Expectorated Sputum 09/12/22 16:52 Gram Stain - Final Sputum - Expectorated Sputum Sputum Culture - Preliminary 09/11/22 21:13 Blood Culture - Preliminary Blood NEGATIVE TO DATE 09/11/22 21:09 Blood Culture - Preliminary Blood NEGATIVE TO DATE 09/11/22 21:55 MRSA Culture - Final Nose A&P Assessment and plan (1) Acute and chronic respiratory failure with hypoxia: Discussed with nursing, RT, pulmonology, he was found to be desaturating down to 86% with exertion. Induced sputum culture was obtained. Continue treatment of pneumonia. Sputum Gram stain reviewed, few gram-positive cocci tiny many gram-positive cocci in clusters, few gram-negative rods, few WBC, few yeast, few epithelial cells. Continue Zosyn, vancomycin. Continue breathing treatments. Continue inhaled st eroid. Acetylcysteine. Discussed with his clod puller. MRSA PCR reviewed, negative. Urine bacterial antigens reviewed, negative Follow-up blood culture. (2) Pre-syncope: Brief episodes of of presyncope this morning. Blood pressure noted softer, 117/75 compared to his prior hypertensive pressures. Reviewed overnight physician documentation. Went into A-fib with RVR. Presyncope may be secondary to decrease in blood pressure. He otherwise remains in sinus rhythm, heart rate 60s-70s. Vital signs at the time of the episode unremarkable. Glucose unremarkable. Or thostatics requested, reviewed, negative. Troponin EKG series requested. Echocardiogram requested. Follow-up. Continue vital signs, cardiac monitoring, with elevated risk of arrhythmia. (3) Pneumonia: (4) Diabetes 1.5, managed as type 2: (5) Atrial fibrillation: A-fib with RVR overnight, received a dose of Cardizem. Resolved. Continue cardiac monitoring. Continue metoprolol, Eliquis. (6) CHF (congestive heart failure): (7) COPD (chronic obstructive pulmonary disease): Plan History of COPD: Gold class D: Chronically on 4 L of oxygen. Continue DuoNebs Budesonide inhaler History of paroxysmal atrial fibrillation: Continue metoprolol Continue Eliquis History of heart failure with preserved ejection fraction. Currently compensated euvolemic Monitor intake output charting Monitor electrolytes CODE STATUS: Full code DVT prophylaxis not needed on Eliquis Attestations Medical Necessity Statement*: Continue admission for assessment management of pneumonia failed outpatient management, further assessment of presyncopal episode, optimization of control of A-fib with RVR. Diagnoses Acute and chronic respiratory failure with hypoxia J96.21 Pre-syncope R55 Pneumonia J18.9 Diabetes 1.5, managed as type 2 E13.9 Atrial fibrillation I48.91 CHF (congestive heart failure) I50.9 COPD (chronic obstructive pulmonary disease) J44.9
[2022-09-13] MEDS: insulin lispro 100 unit/1 mL SUBCUT (18:36)
[2022-09-13] MEDS: atorvastatin 40 mg Tablet 20 MG PO (21:37)
[2022-09-13 22:43] LABS: Glucose Point of Care 110 mg/dL (70-110)
[2022-09-14] VITALS (12 sets, daily range): BP systolic 103–154; BP diastolic 45–84; PULSE 67–78; RESP 15–20; TEMP 36.5–36.7; O2SAT 94–98
[2022-09-14] MEDS: piperacillin-tazobactam 3.375 GM in sodium chloride 0.9% (plus) 50 ML IV ×3 (00:35→18:23)
[2022-09-14] MEDS: vancomycin 1,250 MG/250 ML PIGGYBACK 250 MG IV ×2 (05:00→23:07)
[2022-09-14 05:21] LABS: Basophils # 0.1 10^3/uL (0.0-0.1); Eosinophils # 0.5 10^3/uL (0.0-0.8); Eosinophils % 5.2 %; Hematocrit 40.5 % (42.0-52.0); Hemoglobin 12.4 g/dL (11.7-16.6); Lymphocytes # 2.4 10^3/uL (0.8-4.8); Lymphocytes % 26.3 %; Mean Corpuscular HGB Conc 30.6 g/dL (30.0-36.0); Mean Corpuscular Hemoglobin 26.4 pg (28.0-34.0); Mean Corpuscular Volume 86.2 fl (80-94); Mean Platelet Volume 10.7 fL (7.4-10.4); Monocytes # 0.9 10^3/uL (0.2-0.9); Neutrophils # 5.16 10^3/uL (1.8-7.7); Neutrophils % 56.7 %; Nucleated Red Blood Cells % 0 %; Platelet Count 204 10^3/cmm (130-400); Red Cell Distribution Width 16.3 % (12.1-15.1); White Blood Count 9.1 10^3/uL (4.0-10.0)
[2022-09-14 05:38] LABS: Alanine Aminotransferase 13 U/L (0-41); Albumin Level 3.2 g/dL (3.5-5.2); Alkaline Phosphatase 92 U/L (40-130); Anion Gap 11.2 (5-19); Aspartate Amino Transferase 14 U/L (0-40); Blood Urea Nitrogen 23 mg/dL (8-23); Calcium 8.9 mg/dL (8.5-10.5); Carbon Dioxide 26 mmol/L (22-29); Chloride 98 mmol/L (98-107); Globulin 3.4 g/dL (1.3-4.6); Glucose 111 mg/dL (65-115); Osmolality Calculated 276 mOsm/kg (285-295); Potassium 4.2 mmol/L (3.5-5.1); Sodium 131 mmol/L (136-145); Total Bilirubin 0.3 mg/dL (0.15-1.2); Total Protein 6.6 g/dL (6.6-8.7)
[2022-09-14 06:38] LABS: Glucose Point of Care 104 mg/dL (70-110)
[2022-09-14] MEDS: acetylcysteine 200 mg/mL SDV 4 mL 100 MG INHALATION ×3 (07:46→20:08)
[2022-09-14] MEDS: ipratropium-albuterol 3 mL Neb INHALATION ×4 (07:47→20:07)
[2022-09-14] MEDS: sodium chloride 3.5% neb 4 mL Neb INHALATION ×3 (07:47→20:07)
[2022-09-14] MEDS: budesonide 0.5 mg/2 mL Neb INHALATION ×2 (07:47→20:07)
[2022-09-14] MEDS: apixaban 5 mg Tablet PO ×2 (09:02→20:44)
[2022-09-14] MEDS: tamsulosin 0.4 mg Capsule PO (09:02)
[2022-09-14] MEDS: metoprolol succinate ER (24 HR) 50 mg Tablet PO (09:02)
--- NOTE | 2022-09-14 10:17 | PC.SOCIAL ---
Pg 2 IMM Explained to pt Pg 2 IMM. No questions voiced. Provided pt a copy. Initialed, dated, & timed a copy & placed in chart.
[2022-09-14 11:19] LABS: Glucose Point of Care 182 mg/dL (70-110)
--- NOTE | 2022-09-14 12:00 | USR_ITS ---
PROCEDURE INFORMATION: Exam: US Duplex Bilateral Extracranial Arteries, Carotid Arteries Exam date and time: 09/14/2022 6:48 PM Age: 77 years old Clinical indication: Syncope and collapse; Prior surgery; Surgery date: 6+ months; Surgery type: RT endarterectomy 2017; Additional info: Presyncope, carotid disease TECHNIQUE: Imaging protocol: Real-time Duplex ultrasound scan of the bilateral carotid and vertebral arteries combining garcia scale, color Doppler and spectral waveform analysis. Bilateral exam. Exam focused on the carotid arteries. COMPARISON: CT angio neck [id number] 01/08/2019 9:38 AM FINDINGS: Right common carotid artery: Increased peak systolic velocity at the carotid bulb measuring 131 cm/second, suggestive of moderate stenosis. No occlusion. Waveforms are normal. Right internal carotid artery: Increased peak systolic velocity in the right internal carotid artery measuring 151 cm/second proximally, 159 cm/second in the mid segment, and 138 cm/second distally, suggestive of moderate stenosis. No occlusion. Waveforms are normal. Right ICA/CCA ratio: 1.32. Right external carotid artery: Increased peak systolic velocity in the proximal right external carotid artery measuring 230 cm/second, suggestive of moderate stenosis. Right vertebral artery: Unremarkable. Antegrade flow. Left common carotid artery: Increased peak systolic velocity at the carotid bulb measuring 198 cm/second, suggestive of moderate stenosis. No occlusion. Waveforms are normal. Left internal carotid artery: Increased peak systolic velocity in the proximal left internal carotid artery measuring 163 cm/second, suggestive of moderate stenosis. No occlusion. Waveforms are normal. Left ICA/CCA ratio: Elevated, measuring 3.47. Left external carotid artery: No stenosis in the origin. Left vertebral artery: Unremarkable. Antegrade flow. US/CV carotid duplex BI* [id number] IMPRESSION: 1. 50-69% stenosis right internal carotid artery 2. 50-69% stenosis left internal carotid artery. 3. Patent bilateral vertebral arteries with normal direction of flow. REFERENCES: SRU CRITERIA. The degree of internal carotid artery stenosis is based on criteria defined by the Society of Radiologists in Ultrasound (SRU). Normal is no stenosis. Mild is less than 50% stenosis. Moderate is 50-69% stenosis. Severe is greater than 69% stenosis to near occlusion. Near occlusion is a markedly narrowed lumen. Total occlusion is no detectable patent lumen.
--- NOTE | 2022-09-14 12:06 | CTR_ITS ---
PROCEDURE INFORMATION: Exam: CT Head Without Contrast Exam date and time: 09/14/2022 1:53 PM Age: 77 years old Clinical indication: Pain; Headache not specified; Additional info: Headache. Pre-syncope. TECHNIQUE: Imaging protocol: Computed tomography of the head without contrast. Radiation optimization: All CT scans at this facility use at least one of these dose optimization techniques: automated exposure control; mA and/or kV adjustment per patient size (includes targeted exams where dose is matched to clinical indication); or iterative reconstruction. Other protocol: This patient has received 2 known CTs and 0 known cardiac nuclear medicine studies in the 12 months prior to the current study. COMPARISON: CT angio neck [id number] 01/08/2019 9:38 AM RADIATION DOSE METRICS: Total DLP (mGy-cm): 1033.68 FINDINGS: Brain: No hemorrhage, mass effect or midline shift. No acute, major vascular distribution infarction identified. There is foci of decreased attenuation in the periventricular and subcortical white matter, likely representing chronic small vessel ischemic changes. Mild cerebral volume loss is present. No intra-axial or extra-axial fluid collection seen. Cerebral ventricles: No ventriculomegaly. Paranasal sinuses: There is mucosal thickening and partial opacification of the right maxillary sinus with small bubbles of air and surrounding hyperostosis, suggestive of acute on chronic sinusitis. Surgical changes about the medial wall of the left maxillary sinus and left ethmoid air cells noted. Mastoid air cells: Visualized mastoid air cells are well aerated. Bones/joints: See Paranasal sinuses finding. Soft tissues: Unremarkable. CT/CT head wo con* [id number] IMPRESSION: 1. No acute intracranial abnormality. 2. Inflammatory changes of the right maxillary sinus, suggestive of acute on chronic sinusitis.
[2022-09-14] MEDS: insulin lispro 100 unit/1 mL SUBCUT ×2 (12:59→22:51)
--- NOTE | 2022-09-14 13:51 | PC.NURSE ---
MD BURGERED NON ADMIN OF LISINOPRIL 5MG
[2022-09-14 17:12] LABS: Glucose Point of Care 113 mg/dL (70-110)
[2022-09-14] MEDS: atorvastatin 40 mg Tablet 20 MG PO (20:44)
--- NOTE | 2022-09-14 21:37 | P.PN_ITS ---
Subjective Subjective: Today he is having some mild frontal headache.? He does complain of his vision getting more blurry.? States he is had this issue before.? He has seen an hook and eye sewing machine operator before but states that they just checked his vision. Denies chest pain.? Breathing about the same. Blood pressure noted fluctuating, during my visit in 160 systolic bilaterally 163/90 on the left.? Later in the day down to 103/45. He is reporting some watering of his eyes, some itching. Vitals/I&O/Wt Last Vital Signs Temp 97.9 F 09/14/22 15:28 Pulse 77 09/14/22 20:08 Resp 16 09/14/22 20:08 BP 148/74 09/14/22 15:28 Pulse Ox 95 09/14/22 20:08 O2 Del Method 09/14/22 20:08 O2 Flow Rate 4 09/14/22 20:08 09/14/22 09/14/22 09/14/22 06:59 14:59 22:59 Intake Total 780 / 2330 890 / 890 480 / 1370 Output Total 1300 / 2400 550 / 550 Balance -520 / -70 340 / 340 480 / 820 Physical Exam Const: COMMON NORMALS: patient oriented x3 and alert GENERAL APPEARANCE: cooperative ORIENTATION/CONSCIOUSNESS: Yes awake HENMT: COMMON NORMALS: oropharynx normal OTHER: Counting fingers from 3 feet away. Visual white intact. I am intact. No eye erythema, pain. Neck/C-Spine: COMMON NORMALS: no JVD Resp: COMMON NORMALS: normal respiratory effort AUSCULTATION: no wheezes and diminished lung sounds (Better air entry) Cardio: COMMON NORMALS: no JVD, regular rhythm, S1 normal heart sound present, S2 normal heart sound present and No murmurs present (Cardio) RHYTHM: regular rhythm HEART SOUNDS: S1 normal heart sound present and S2 normal heart sound present GI: COMMON NORMALS: Normal to inspection, nondistended, normoactive bowel sounds present, Soft to palpation and non-tender PALPATION: Yes Soft to palpation Extremity: COMMON NORMALS: no joint enlargement and no pedal edema Neuro: COMMON NORMALS: patient oriented x3 and moves all extremities SENSORIUM/ORIENTATION: Yes alert Skin: COMMON NORMALS: no rashes or lesions noted GENERAL SKIN EXAM: no rashes or lesions noted Data 09/14/22 04:20 09/14/22 04:20 Micro: Microbiology 09/12/22 16:52 Gram Stain - Final Sputum - Expectorated Sputum Sputum Culture - Final 09/11/22 20:18 Sputum Culture - Final Sputum - Expectorated Sputum A&P Assessment and plan (1) Labile blood pressure: This morning blood pressure 163/90 when I checked it at bedside, complaining of mild frontal headache, slight blurring of his vision.? As per discussion with his family it appears his blood pressures run very low at home, 90s, low 100s.? He says intermittently will get a pressure-like 76/42.? Here discussed with them he has been running on the higher side intermittently going up to 150s-160s, but with noted fluctuation.? As per discussion TTE is pending.? Is not clear entirely what is causing fluctuation of his blood pressure.? With elevated blood pressure today and mild headache and blurry vision consideration of hypertensive encephalopathy due to him usually running on the low side at home, requested lower dose lisinopril to be resumed at 5 mg, however, by the time this was originally given his blood pressure already came down to systolic 103/45. (2) Pre-syncope: On further discussion with his , she reports he has history of carotid artery disease. With presyncope with labile blood pressures will additionally assess carotid duplex for progression. Brief episodes of of presyncope this morning. Blood pressure noted softer, 117/75 compared to his prior hypertensive pressures. Reviewed overnight physician documentation. Went into A-fib with RVR. Presyncope may be secondary to decrease in blood pressure. He otherwise remains in sinus rhythm, heart rate 60s-70s. Vital signs at the time of the episode unremarkable. Glucose unremarkable. Orthostatics requested, reviewed, negative. Troponin EKG series requested. Echocardiogram requested. Follow-up. Continue vital signs, cardiac monitoring, with elevated risk of arrhythmia. (3) Acute and chronic respiratory failure with hypoxia: Discussed with nursing, RT, pulmonology, he was found to be desaturating down to 86% with exertion. Induced sputum culture was obtained. Continue treatment of pneumonia. Sputum Gram stain reviewed, few gram-positive cocci tiny many gram-positive cocci in clusters, few gram-negative rods, few WBC, few yeast, few epithelial cells. Continue Zosyn, vancomycin. Continue breathing treatments. Continue inhaled steroid. Acetylcysteine. Discussed with his box loader. MRSA PCR reviewed, negative. Urine bacterial antigens reviewed, negative Follow-up blood culture. Discussed with pulmonology. Discussed discharge planning. (4) Pneumonia: (5) Diabetes 1.5, managed as type 2: (6) Atrial fibrillation: A-fib with RVR overnight, received a dose of Cardizem. Resolved. Continue cardiac monitoring. Continue metoprolol, Eliquis. (7) CHF (congestive heart failure): (8) COPD (chronic obstructive pulmonary disease): Plan History of COPD: Gold class D: Chronically on 4 L of oxygen. Continue DuoNebs Budesonide inhaler History of paroxysmal atrial fibrillation: Continue metoprolol Continue Eliquis History of heart failure with preserved ejection fraction. Currently compensated euvolemic Monitor intake output charting Monitor electrolytes Allergic conjunctivitis: Patient also has allergic conjunctivitis with watering of his eyes, sensation of grittiness, itching. I do not see antihistamine I drops, will add oral antihistamine. CODE STATUS: Full code DVT prophylaxis not needed on Eliquis Attestations Medical Necessity Statement*: The admission for assessment management of pneumonia which failed outpatient management, further assessment of labile blood pressures, presyncope and with underlying coronary disease, atrial fibrillation and additional comorbidities. and High MDM includes number and complexity of problems actively addressed during encounter and amount and/or complexity of data reviewed/ordered [ previous or external records, resulted lab(s)/test(s), ordered lab(s)/test(s), independent historian and other healthcare professional discussion] as documented Diagnoses Labile blood pressure R09.89 Pre-syncope R55 Acute and chronic respiratory failure with hypoxia J96.21 Pneumonia J18.9 Diabetes 1.5, managed as type 2 E13.9 Atrial fibrillation I48.91 CHF (congestive heart failure) I50.9 COPD (chronic obstructive pulmonary disease) J44.9
[2022-09-14 22:30] LABS: Glucose Point of Care 147 mg/dL (70-110)
[2022-09-15] VITALS (12 sets, daily range): BP systolic 106–152; BP diastolic 65–81; PULSE 43–82; RESP 16–22; TEMP 36.4–36.8; O2SAT 95–99
[2022-09-15] MEDS: piperacillin-tazobactam 3.375 GM in sodium chloride 0.9% (plus) 50 ML IV ×3 (00:25→17:54)
[2022-09-15 04:58] LABS: Basophils # 0.1 10^3/uL (0.0-0.1); Basophils % 1.2 %; Eosinophils # 0.6 10^3/uL (0.0-0.8); Eosinophils % 6.5 %; Hematocrit 39.5 % (42.0-52.0); Hemoglobin 12.1 g/dL (11.7-16.6); Lymphocytes % 22.2 %; Mean Corpuscular HGB Conc 30.6 g/dL (30.0-36.0); Mean Corpuscular Hemoglobin 26.1 pg (28.0-34.0); Mean Corpuscular Volume 85.3 fl (80-94); Mean Platelet Volume 10.8 fL (7.4-10.4); Monocytes % 11.6 %; Neutrophils # 5.18 10^3/uL (1.8-7.7); Neutrophils % 57.8 %; Nucleated Red Blood Cells % 0 %; Platelet Count 199 10^3/cmm (130-400); Red Blood Count 4.63 10^6/uL (4.1-5.3); Red Cell Distribution Width 16.2 % (12.1-15.1)
[2022-09-15 05:19] LABS: Anion Gap 11.2 (5-19); Blood Urea Nitrogen 18 mg/dL (8-23); Calcium 8.8 mg/dL (8.5-10.5); Carbon Dioxide 25 mmol/L (22-29); Chloride 103 mmol/L (98-107); Glucose 100 mg/dL (65-115); Osmolality Calculated 282 mOsm/kg (285-295); Potassium 4.2 mmol/L (3.5-5.1); Sodium 135 mmol/L (136-145)
[2022-09-15] MEDS: apixaban 5 mg Tablet PO ×2 (06:13→20:18)
[2022-09-15] MEDS: acetylcysteine 200 mg/mL SDV 4 mL 100 MG INHALATION ×2 (08:04→15:04)
[2022-09-15] MEDS: ipratropium-albuterol 3 mL Neb INHALATION ×3 (08:05→15:05)
[2022-09-15] MEDS: budesonide 0.5 mg/2 mL Neb INHALATION ×2 (08:05→19:14)
[2022-09-15] MEDS: sodium chloride 3.5% neb 4 mL Neb INHALATION ×3 (08:05→19:13)
[2022-09-15] MEDS: loratadine 10 mg Tablet PO (09:46)
[2022-09-15] MEDS: lisinopril 5 mg Tablet PO (09:46)
[2022-09-15] MEDS: tamsulosin 0.4 mg Capsule PO (09:46)
--- NOTE | 2022-09-15 11:08 | P.PN_ITS ---
Subjective Subjective: Today he is feeling better. His symptoms resolved. Was noted by his setter off rate decreased down to 43 bpm transiently which time spontaneously went up into the 90s. Vitals/I&O/Wt Last Vital Signs Temp 97.5 F L 09/15/22 08:00 Pulse 43 L 09/15/22 08:00 Resp 18 09/15/22 08:00 BP 145/81 09/15/22 08:00 Pulse Ox 97 09/15/22 08:00 O2 Del Method 09/15/22 08:00 O2 Flow Rate 4 09/15/22 08:00 09/14/22 09/15/22 09/15/22 22:59 06:59 14:59 Intake Total 530 / 1420 780 / 2200 120 / 120 Output Total 550 / 1100 1400 / 2500 Balance -20 / 320 -620 / -300 120 / 120 Physical Exam Const: COMMON NORMALS: patient oriented x3 and alert GENERAL APPEARANCE: cooperative ORIENTATION/CONSCIOUSNESS: Yes awake HENMT: COMMON NORMALS: oropharynx normal Neck/C-Spine: COMMON NORMALS: no JVD Resp: COMMON NORMALS: normal respiratory effort AUSCULTATION: wheezes and diminished lung sounds (Better air entry) Cardio: COMMON NORMALS: no JVD, regular rhythm, S1 normal heart sound present, S2 normal heart sound present and No murmurs present (Cardio) RHYTHM: regular rhythm HEART SOUNDS: S1 normal heart sound present and S2 normal heart sound present GI: COMMON NORMALS: Normal to inspection, nondistended, normoactive bowel sounds present, Soft to palpation and non-tender PALPATION: Yes Soft to palpation Extremity: COMMON NORMALS: no joint enlargement and no pedal edema Neuro: COMMON NORMALS: patient oriented x3 and moves all extremities SENSORIUM/ORIENTATION: Yes alert Skin: COMMON NORMALS: no rashes or lesions noted GENERAL SKIN EXAM: no rashes or lesions noted Data 09/15/22 04:40 09/15/22 04:40 Micro: Microbiology 09/12/22 16:52 Gram Stain - Final Sputum - Expectorated Sputum Sputum Culture - Final A&P Assessment and plan (1) Cardiomyopathy: New cardiomyopathy with ejection fraction down to 40%, previously 65%. LV hypokinesis. No sign of ACS per my interpretation on review of troponin series and EKG with old LBBB, he has been chest pain-free. However, has had presyncopal episode, labile blood pressures, and with new decrease in ejection fraction, would benefit from additional assessment of myocardial perfusion to assess for any ischemia, discussed with him and his regarding stress testing, they are agreeable, requesting for tomorrow. (2) Labile blood pressure: With several additional findings discussed with him and his , reviewed KARLIE with finding of cardiomyopathy as above. Additionally reviewed carotid duplex study with finding of now bilateral 50-69% carotid stenosis which has progressed compared to prior study. Blood pressures noted fluctuating, today up as high as 152/79, down as low as 106/65. Additionally with noted transient bradycardia heart rate down to 43, metoprolol dose decreased to 25 mg. On lowered dose lisinopril 5 mg. Monitor blood blood pressure as he may have had symptoms from elevated blood pressure at home but does have propensity for also hypotension and DEVELOPMENT PROFESSIONAL hypoperfusion with bilateral carotid disease, as well as with noted decreased EF. At risk of life-threatening deterioration, DEVELOPMENT PROFESSIONAL hypoperfusion and stroke or other life-threatening complication while adjusting his medications. (3) Pre-syncope: As above with noted additional findings on TTE and carotid duplex. Presyncope may be result of combination of fluctuating blood pressure with cardiomyopathy and finding of newly decreased EF, as well as worsening of now bilateral 50-69% carotid stenosis. Further assessment with stress test requested. Additionally shared follow-up with vascular surgery. On further discussion with his , she reports he has history of carotid artery disease. With presyncope with labile blood pressures will additionally assess carotid duplex for progression. Episode of momentary syncope. Vital signs at the time of the episode unremarkable. Glucose unremarkable. Orthostatics requested, reviewed, negative. (4) Acute and chronic respiratory failure with hypoxia: Continue empiric antibiotics, continue oxygen support, wean down as tolerating. Remains on 4 L oxygen on review of vitals. Induced sputum culture reviewed, moderate mixed upper respiratory [place] on day 2. Original culture from 09/11 with upper respiratory [place]. Leukocytosis has resolved. Afebrile. We will request procalcitonin for the morning. Discussed with pulmonology, in case no further worsening, procal ok can discontinue Abx tomorrow. Continue breathing treatments. Continue inhaled steroid. Acetylcysteine. MRSA PCR reviewed, negative. Urine bacterial antigens reviewed, negative Follow-up blood culture. Discussed with pulmonology. Discussed discharge planning. (5) Pneumonia: (6) Diabetes 1.5, managed as type 2: (7) Atrial fibrillation: A-fib with RVR overnight, received a dose of Cardizem. Resolved. Continue cardiac monitoring. Continue metoprolol, Eliquis. (8) CHF (congestive heart failure): (9) COPD (chronic obstructive pulmonary disease): Plan History of COPD: Gold class D: Chronically on 4 L of oxygen. Continue DuoNebs Budesonide inhaler History of paroxysmal atrial fibrillation: Continue metoprolol Continue Eliquis History of heart failure with preserved ejection fraction. Currently compensated euvolemic Monitor intake output charting Monitor electrolytes Allergic conjunctivitis: Patient also has allergic conjunctivitis with watering of his eyes, sensation of grittiness, itching. I do not see antihistamine I drops, will add oral antihistamine. CODE STATUS: Full code DVT prophylaxis not needed on Eliquis Attestations Medical Necessity Statement*: Continue admission for further assessment of new cardiomyopathy, decrease in EF down to 40%, with labile blood pressures, in the setting also of progressed now bilateral 50-69% carotid stenosis and momentary syncopal episode. Diagnoses Cardiomyopathy I42.9 Labile blood pressure R09.89 Pre-syncope R55 Acute and chronic respiratory failure with hypoxia J96.21 Pneumonia J18.9 Diabetes 1.5, managed as type 2 E13.9 Atrial fibrillation I48.91 CHF (congestive heart failure) I50.9 COPD (chronic obstructive pulmonary disease) J44.9
[2022-09-15] MEDS: metoprolol succinate ER (24 HR) 25 mg Tablet PO (11:28)
[2022-09-15 11:29] LABS: Glucose Point of Care 138 mg/dL (70-110)
[2022-09-15] MEDS: vancomycin 1,250 MG/250 ML PIGGYBACK 250 MG IV (16:47)
[2022-09-15 17:03] LABS: Glucose Point of Care 152 mg/dL (70-110)
[2022-09-15] MEDS: insulin lispro 100 unit/1 mL SUBCUT ×2 (17:37→21:26)
[2022-09-15 18:41] LABS: Procalcitonin 0.09 ng/mL (0-0.5)
[2022-09-15] MEDS: albuterol 2.5 mg/3 mL Neb INHALATION (19:13)
[2022-09-15] MEDS: atorvastatin 40 mg Tablet 20 MG PO (20:18)
[2022-09-15 21:36] LABS: Glucose Point of Care 151 mg/dL (70-110)
[2022-09-16] VITALS (14 sets, daily range): BP systolic 121–172; BP diastolic 55–97; PULSE 67–112; RESP 16–21; TEMP 36.3–36.7; O2SAT 96–98
[2022-09-16] MEDS: piperacillin-tazobactam 3.375 GM in sodium chloride 0.9% (plus) 50 ML IV ×2 (00:47→09:31)
[2022-09-16 05:12] LABS: Basophils # 0.1 10^3/uL (0.0-0.1); Basophils % 0.9 %; Eosinophils # 0.6 10^3/uL (0.0-0.8); Eosinophils % 7.3 %; Hematocrit 38.5 % (42.0-52.0); Hemoglobin 11.8 g/dL (11.7-16.6); Lymphocytes % 23.3 %; Mean Corpuscular HGB Conc 30.6 g/dL (30.0-36.0); Mean Corpuscular Hemoglobin 26.5 pg (28.0-34.0); Mean Corpuscular Volume 86.5 fl (80-94); Mean Platelet Volume 11.1 fL (7.4-10.4); Monocytes # 0.9 10^3/uL (0.2-0.9); Monocytes % 11.1 %; Neutrophils # 4.79 10^3/uL (1.8-7.7); Neutrophils % 56.6 %; Nucleated Red Blood Cells % 0 %; Platelet Count 222 10^3/cmm (130-400); Red Blood Count 4.45 10^6/uL (4.1-5.3); Red Cell Distribution Width 16.4 % (12.1-15.1); White Blood Count 8.5 10^3/uL (4.0-10.0)
[2022-09-16 05:48] LABS: Anion Gap 12.8 (5-19); Blood Urea Nitrogen 22 mg/dL (8-23); Calcium 8.8 mg/dL (8.5-10.5); Carbon Dioxide 26 mmol/L (22-29); Chloride 102 mmol/L (98-107); Glucose 100 mg/dL (65-115); Osmolality Calculated 285 mOsm/kg (285-295); Potassium 4.8 mmol/L (3.5-5.1); Sodium 136 mmol/L (136-145)
[2022-09-16] MEDS: apixaban 5 mg Tablet PO ×2 (06:04→22:45)
[2022-09-16 07:41] LABS: Glucose Point of Care 104 mg/dL (70-110)
--- NOTE | 2022-09-16 09:00 | ECG_ITS ---
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 Interpretive Statements NAME OF STUDY: LEXISCAN SESTAMIBI STRESS TEST INDICATION: [Drop in EF, ] Procedure: At the baseline, the blood pressure was 126/74 mmHg with a heart rate of 99 bpm. The electrocardiogram showed normal sinus rhythm, normal axis with normal ST and T's. The Lexiscan was infused over a period of 20 seconds. A total of 0.4 mg of Lexiscan was infused. The stress phase was continued for a total of 5 minutes. Heart rate was at the end of stress phase was 115bpm and a blood pressure of 152/69 mmHg. The EKG at the peak infusion revealed normal sinus rhythm with no significant ST-T wave changes. Frequent PVCs were seen. Sestamibi was injected 20 seconds after the Lexiscan infusion. Blood pressure at the end of recovery phase was 106 /62 mmHg with a heart rate of 89 bpm. Conclusion: 1. Normal EKG response to Lexiscan infusion 2. No Lexiscan induced chest pain or cardiac arrhythmia. 3. Normal blood pressure and heart rate response. 4. Sestamibi/sestamibi perfusion scan pending; see separate report. Electronically Signed On 09-21-2022 23:15:16 [employer] by Ghulam Aguilar M.D. [email or web address]
[2022-09-16] MEDS: lisinopril 5 mg Tablet PO (09:27)
[2022-09-16] MEDS: tamsulosin 0.4 mg Capsule PO (09:27)
[2022-09-16] MEDS: loratadine 10 mg Tablet PO (09:27)
[2022-09-16] MEDS: metoprolol succinate ER (24 HR) 25 mg Tablet PO (09:27)
--- NOTE | 2022-09-16 10:50 | NMCV_ITS ---
NM nora perf SPECT r/s* [id number] Jonathan Sultana Age: 77 Gender: M : 1945 Exam Date: 09/16/2022 11:54 Ordering Phys: El Reeves MD Technologist: GERARD Jay Exam Location: [facility] Indications: CHEST PAIN STRESS TEST Please see separate stress test report in [facility] for full findings IMAGE PROTOCOL Rest/Stress 1 Lexiscan Day Radiopharmaceutical Dose (mCi) Administration Site Administered by Rest: Tc-99m 11.0 IV GERARD Jay Sestamibi Stress:Tc-99m 32.9 IV GERARD Jay Sestamibi Rest: 16-Sep-2022 60 Discovery 630 Stress: 16-Sep-2022 30 Discovery 630 0.4mg Lexiscan. Images obtained in supine and prone position. SPECT RESULTS Technical Quality: Excellent Raw Data Analysis: Normal Image Corrections: No attenuation or motion correction applied Summed Stress Score: 2 Summed Rest Score: 2 Summed Difference Score: 1 PERFUSION FINDINGS There is a small in size, partially reversible perfusion defect noted in the inferior wall. This is consistent with small-sized prior infarct with minimal area of karley-infarct ischemia in RCA territory. FUNCTIONAL RESULTS (calculated via Gated SPECT) Stress Image LV EF (%): 68 Stress EDV (mL):85 TID: 0.63 Stress ESV (mL):27 FUNCTIONAL FINDINGS: There is normal left ventricular systolic function. IMPRESSIONS 1. Small sized area of prior infarct with minimal karley-infarct ischemia is seen in the RCA territory. 2. LV systolic function is normal Ghulam Aguilar MD (Electronically Signed) Final Date: 17 September 2022 13:25 S
[2022-09-16 11:18] LABS: Glucose Point of Care 97 mg/dL (70-110)
[2022-09-16] MEDS: vancomycin 1,250 MG/250 ML PIGGYBACK 250 MG IV (11:20)
[2022-09-16] MEDS: ipratropium 0.5 mg/2.5 mL Neb INHALATION ×3 (11:26→19:47)
[2022-09-16] MEDS: albuterol 2.5 mg/3 mL Neb INHALATION ×3 (11:27→19:48)
[2022-09-16] MEDS: regadenoson 0.4 Mg/5 ml Syringe IVP (12:20)
--- NOTE | 2022-09-16 14:08 | P.PN_ITS ---
Subjective Subjective: Patient underwent stress test this afternoon. Pending resuls . No acute events overnight. HR between 70-112 Medications: Reviewed: Yes Vitals/I&O/Wt Last Vital Signs Temp 97.4 F L 09/16/22 11:31 Pulse 112 H 09/16/22 12:47 Resp 18 09/16/22 11:31 BP 136/65 09/16/22 12:47 Pulse Ox 97 09/16/22 11:31 O2 Del Method 09/16/22 11:31 O2 Flow Rate 4 09/16/22 11:29 09/15/22 09/16/22 09/16/22 22:59 06:59 14:59 Intake Total 1140 / 1670 290 / 1960 300 / 300 Output Total 455 / 455 525 / 980 600 / 600 Balance 685 / 1215 -235 / 980 -300 / -300 Physical Exam Narrative: General: No acute distress, AO x3 HEENT: PERRLA, pupils bilaterally equal and reactive, pallors not present Chest: Normal vesicular breath sounds, no added sounds, equal good air entry bilaterally CVS: S1-S2 regular, no murmurs, no tachycardia, no gallops, no rubs Abdomen: Soft, nontender, no organomegaly, bowel sounds present Neuro: No focal deficits, no facial deformity, AO x3, power 5/5 in all limbs Extremities: Healthy surgical dressing present on the right hip, mild tenderness, soft no erythema. Data 09/16/22 04:19 09/16/22 04:19 A&P Assessment and plan (1) Cardiomyopathy: New cardiomyopathy with ejection fraction down to 40%, previously 65%. LV hypokinesis. No sign of ACS . EKG with old LBBB, he has been chest pain-free. However, has had presyncopal episode, labile blood pressures, and with new decrease in ejection fraction, underwent stress test today, results of which are currently pending . (2) Labile blood pressure: Currently stable (3) Pre-syncope: As above with noted additional findings on TTE and carotid duplex. Presyncope may be result of combination of fluctuating blood pressure, intermittent bradycardia, with cardiomyopathy and finding of newly decreased EF, as well as worsening of now bilateral 50-69% carotid stenosis. Further assessment with stress test requested. Additionally shared follow-up with vascular surgery Vital signs at the time of the episode unremarkable. Glucose unremarkable. Orthostatics requested, reviewed, negative. (4) Acute and chronic respiratory failure with hypoxia: Discontinue empiric antibiotics today, continue oxygen support, wean down as tolerating. Remains on 4 L oxygen on review of vitals. Leukocytosis has resolved. Afebrile. We will request procalcitonin for the morning. Discussed with pulmonology, in case no further worsening, procal negative Continue breathing treatments. Continue inhaled steroid. Acetylcysteine. MRSA PCR reviewed, negative. Urine bacterial antigens reviewed, negative Follow-up blood culture. (5) Pneumonia: (6) Diabetes 1.5, managed as type 2: (7) Atrial fibrillation: A-fib with RVR overnight, received a dose of Cardizem. Resolved. Continue cardiac monitoring. Continue metoprolol, Eliquis. (8) CHF (congestive heart failure): (9) COPD (chronic obstructive pulmonary disease): Plan History of COPD: Gold class D: Chronically on 4 L of oxygen. Continue DuoNebs Budesonide inhaler History of paroxysmal atrial fibrillation: Continue metoprolol Continue Eliquis CODE STATUS: Full code DVT prophylaxis not needed on Eliquis Attestations Medical Necessity Statement*: pending stress test results Coding Level of Care Code Acute Code for [facility] Diagnoses Cardiomyopathy I42.9 Labile blood pressure R09.89 Pre-syncope R55 Acute and chronic respiratory failure with hypoxia J96.21 Pneumonia J18.9 Diabetes 1.5, managed as type 2 E13.9 Atrial fibrillation I48.91 CHF (congestive heart failure) I50.9 COPD (chronic obstructive pulmonary disease) J44.9
--- NOTE | 2022-09-16 14:16 | PC.SOCIAL ---
IMM UPDATED IMM initialed and dated and copy given to patient and placed in chart.
[2022-09-16] MEDS: sodium chloride 3.5% neb 4 mL Neb INHALATION ×2 (15:00→19:48)
[2022-09-16] MEDS: acetylcysteine 200 mg/mL SDV 4 mL 100 MG INHALATION (15:00)
[2022-09-16 16:28] LABS: Glucose Point of Care 126 mg/dL (70-110)
[2022-09-16] MEDS: atorvastatin 40 mg Tablet 20 MG PO (21:24)
[2022-09-16 21:36] LABS: Glucose Point of Care 151 mg/dL (70-110)
[2022-09-16] MEDS: insulin lispro 100 unit/1 mL SUBCUT (22:41)
[2022-09-17] VITALS (13 sets, daily range): BP systolic 125–138; BP diastolic 65–75; PULSE 65–96; RESP 14–18; TEMP 36.4–37; O2SAT 92–98
[2022-09-17 04:09] LABS: Basophils # 0.1 10^3/uL (0.0-0.1); Basophils % 1.2 %; Eosinophils # 0.7 10^3/uL (0.0-0.8); Eosinophils % 8.4 %; Hematocrit 38.5 % (42.0-52.0); Hemoglobin 11.5 g/dL (11.7-16.6); Lymphocytes # 2.1 10^3/uL (0.8-4.8); Lymphocytes % 27.2 %; Mean Corpuscular HGB Conc 29.9 g/dL (30.0-36.0); Mean Corpuscular Hemoglobin 25.8 pg (28.0-34.0); Mean Corpuscular Volume 86.5 fl (80-94); Mean Platelet Volume 10.6 fL (7.4-10.4); Monocytes # 0.9 10^3/uL (0.2-0.9); Monocytes % 11.7 %; Neutrophils # 3.94 10^3/uL (1.8-7.7); Neutrophils % 50.7 %; Nucleated Red Blood Cells % 0 %; Platelet Count 205 10^3/cmm (130-400); Red Blood Count 4.45 10^6/uL (4.1-5.3); Red Cell Distribution Width 16.1 % (12.1-15.1); White Blood Count 7.8 10^3/uL (4.0-10.0)
[2022-09-17 04:28] LABS: Anion Gap 11.3 (5-19); Blood Urea Nitrogen 21 mg/dL (8-23); Calcium 8.5 mg/dL (8.5-10.5); Carbon Dioxide 27 mmol/L (22-29); Chloride 104 mmol/L (98-107); Glucose 122 mg/dL (65-115); Osmolality Calculated 290 mOsm/kg (285-295); Potassium 4.3 mmol/L (3.5-5.1); Sodium 138 mmol/L (136-145)
[2022-09-17] MEDS: apixaban 5 mg Tablet PO (06:06)
[2022-09-17 06:36] LABS: Glucose Point of Care 125 mg/dL (70-110)
[2022-09-17] MEDS: budesonide 0.5 mg/2 mL Neb INHALATION ×2 (08:02→08:03)
[2022-09-17] MEDS: ipratropium 0.5 mg/2.5 mL Neb INHALATION ×3 (08:03→15:17)
[2022-09-17] MEDS: albuterol 2.5 mg/3 mL Neb INHALATION ×3 (08:03→15:17)
[2022-09-17] MEDS: acetylcysteine 200 mg/mL SDV 4 mL 100 MG INHALATION (08:03)
[2022-09-17] MEDS: sodium chloride 3.5% neb 4 mL Neb INHALATION (08:04)
[2022-09-17] MEDS: loratadine 10 mg Tablet PO (08:40)
[2022-09-17] MEDS: metoprolol succinate ER (24 HR) 25 mg Tablet PO (08:40)
[2022-09-17] MEDS: lisinopril 5 mg Tablet PO (08:40)
[2022-09-17] MEDS: tamsulosin 0.4 mg Capsule PO (09:46)
[2022-09-17 11:42] LABS: Glucose Point of Care 167 mg/dL (70-110)
[2022-09-17] MEDS: insulin lispro 100 unit/1 mL SUBCUT (12:29)
--- NOTE | 2022-09-17 13:53 | ECG_ITS ---
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 Measurements Intervals Hollis Rate: 73 P: 73 NE: 173 QRS: 69 QRSD: 141 T: 113 QT: 426 QTc: 471 Interpretive Statements SINUS RHYTHM WITH OCCASIONAL VENTRICULAR PREMATURE COMPLEXES LEFT BUNDLE BRANCH BLOCK [120+ ms QRS DURATION, 80+ ms Q/S IN V1/V2, 85+ ms R IN I/aVL/V5/V6] Compared to ECG 09/13/2022 15:19:16 No significant changes Electronically Signed On 09-17-2022 17:39:35 STORE TEAM MEMBER by Ghulam Aguilar M.D. [id number]
--- NOTE | 2022-09-17 14:11 | PM.PN ---
Subjective Subjective: Patient completed stress test yesterday. This morning resulted with small sized area of prior infarct with minimal karley-infarct ischemia in the RCA territory. Patient still complaining of dyspnea, states no significant improvement since admission. Oxygen requirement is stable at 4 L/min. Heart rate ranging between 69-80 today. Medications: Reviewed: Yes Vitals/I&O/Wt Last Vital Signs Temp 97.6 F 09/17/22 12:00 Pulse 69 09/17/22 12:00 Resp 14 09/17/22 12:00 BP 130/74 09/17/22 12:00 Pulse Ox 98 09/17/22 12:00 O2 Del Method 09/17/22 11:13 O2 Flow Rate 4 09/17/22 11:13 09/16/22 09/17/22 09/17/22 22:59 06:59 14:59 Intake Total 960 / 1260 1080 / 1080 Output Total 30 / 630 325 / 955 Balance 930 / 630 -325 / 305 1080 / 1080 Physical Exam Narrative: General: No acute distress, AO x3, elderly frail-appearing gentleman in no acute distress HEENT: PERRLA, pupils bilaterally equal and reactive, pallors not present Chest: Scattered wheezing to auscultation bilaterally CVS: S1-S2 regular, no murmurs, no tachycardia, no gallops, no rubs Abdomen: Soft, nontender, no organomegaly, bowel sounds present Neuro: No focal deficits, no facial deformity, AO x3, power 5/5 in all limbs Data 09/17/22 03:56 09/17/22 03:56 Micro: Microbiology 09/16/22 19:15 Bacterial Antigens - Final Urine,Clean Catch 09/11/22 21:13 Blood Culture - Final Blood NO GROWTH AFTER 5 DAYS 09/11/22 21:09 Blood Culture - Final Blood NO GROWTH AFTER 5 DAYS 09/16/22 19:15 Legionella Urinary Antigen - Final Urine,Clean Catch A&P Assessment and plan (1) Cardiomyopathy: New cardiomyopathy with ejection fraction down to 40%, previously 65%. LV hypokinesis. EKG with old LBBB, today with sinus rhythm with multiple VPCs. Reports that dyspnea has not significantly improved. Underwent stress test yesterday which shows partially reversible perfusion defect in the inferior wall consistent with a small sized prior infarct with minimal areas of karley-infarct ischemia in the RCA territory. During the course of his admission he has had issues with presyncopal episode, labile blood pressures. Given abnormal stress test today we will obtain cardiology consultation. Hold Eliquis today in case patient has to go for angiogram. (2) Labile blood pressure: Currently stable (3) Pre-syncope: As above with noted additional findings on TTE and carotid duplex. No further episodes during admission Presyncope may be result of combination of fluctuating blood pressure, intermittent bradycardia, with cardiomyopathy and finding of newly decreased EF, as well as worsening of now bilateral 50-69% carotid stenosis. Vital signs at the time of the episode unremarkable. Glucose unremarkable. Orthostatics requested, reviewed, negative. (4) Acute and chronic respiratory failure with hypoxia: Status post empiric course of antibiotics, continue oxygen support, wean down as tolerating. Remains on 4 L oxygen on review of vitals. Leukocytosis has resolved. Afebrile. Continue breathing treatments. Continue inhaled steroid. Acetylcysteine. MRSA PCR reviewed, negative. Urine bacterial antigens reviewed, negative (5) Pneumonia: Now excluded (6) Diabetes 1.5, managed as type 2: (7) Atrial fibrillation: A-fib with RVR, resolved with 1 dose of Cardizem IV. No further episodes. Continue cardiac monitoring. Continue metoprolol 25 mg p.o. daily, Eliquis on hold currently for possible angiogram. Will use full dose Lovenox in the interim.. (8) CHF (congestive heart failure): Acute systolic heart failure (9) COPD (chronic obstructive pulmonary disease): History of COPD: Gold class D: Chronically on 4 L of oxygen. Continue DuoNebs Budesonide inhaler Plan CODE STATUS: Full code DVT prophylaxis : On anticoagulation Attestations Medical Necessity Statement*: Cardiology consult today in view of abnormal stress test Coding Level of Care Code Acute Code for Chg Fwd Moderate MDM includes number and complexity of problems actively addressed during encounter, amount and/or complexity of data reviewed/ordered and described risk of complication, morbidity or mortality of management as documented Diagnoses Cardiomyopathy I42.9 Labile blood pressure R09.89 Pre-syncope R55 Acute and chronic respiratory failure with hypoxia J96.21 Pneumonia J18.9 Diabetes 1.5, managed as type 2 E13.9 Atrial fibrillation I48.91 CHF (congestive heart failure) I50.9 COPD (chronic obstructive pulmonary disease) J44.9
[2022-09-17 17:30] LABS: Glucose Point of Care 125 mg/dL (70-110)
[2022-09-17] MEDS: enoxaparin 80 mg/0.8 mL Syringe 70 MG SUBCUT (17:42)
--- NOTE | 2022-09-17 18:08 | PM.CONSULT ---
Providers/Reason For Consult Consulting Physician/Specialty*: Ghulam Aguilar MD/ Cardiology Reason for Consult*: LV dysfunction Requesting Physician: Dr Cowart Attending Physician: Fadia Cowart MD Primary Care Provider: AYAKA Millan History of Present Illness History of Present Illness Jonathan Sultana is a 77 year old male with past medical history of diabetes, hypertension, atrial fibrillation who presented to the hospital with acute on chronic respiratory failure. He was treated for pneumonia. Also has COPD with chronic oxygen use. His LV systolic function has decreased from 65% to 40%. He has substernal pressure occasionally. However shortness of breath has been worsening. Troponins did not trend up significantly. Stress test showed prior infarct in RCA territory with karley-infarct ischemia. However given significant drop in LV systolic function and persistent shortness of breath, cardiology consulted. EKG shows normal sinus rhythm with frequent PVCs Review of Systems General: Reports: 10 or more systems reviewed and unremarkable except in HPI and below Const: Denies: fever(s), chills, body aches, change in appetite or diaphoresis Card: Denies: palpitations, edema, swelling of feet/ankles, dyspnea on exertion, orthopnea or leg pain with exertion Resp: Reports: dyspnea and productive cough; Denies: wheezing or pain on inspiration GI: Denies: abdominal pain, nausea, vomiting, diarrhea or constipation : Denies: flank pain or difficulty urinating Musc: Denies: back pain, extremity pain or extremity swelling Neuro: Denies: headache(s), difficulty walking or confusion Medications/Allergies Home Medications Medication Instructions Recorded Confirmed Last Taken Type alendronate 70 mg tablet (Fosamax) 70 mg PO Q7D 08/23/19 09/11/22 07/14/22 History apixaban 5 mg tablet (Eliquis) 5 mg PO BID@08/23/19 09/11/22 07/16/22 History atorvastatin 20 mg tablet 20 mg PO BEDTIME 08/23/19 09/11/22 07/15/22 History potassium chloride 20 mEq 20 meq PO DAILY@08/02/20 09/11/22 07/16/22 History tablet,extended release calcium carbonate 500 mg-vitamin 500 tab PO DAILY@10/16/20 09/11/22 07/16/22 History D3 5 mcg (200 unit) tablet (Oyster Shell Calcium-Vitamin D3) famotidine 20 mg tablet 20 mg PO DAILY 10/16/20 09/11/22 07/16/22 History glimepiride 2 mg tablet 0.5 mg PO QPM 10/16/20 09/11/22 07/16/22 History levalbuterol tartrate 45 1 puff inhalation Q6H PRN 10/16/20 09/11/22 10/15/20 18:00 History mcg/actuation aerosol inhaler Shortness Of Breath ##0 (Xopenex HFA) roflumilast 500 mcg tablet 500 mcg PO DAILY@07 10/16/20 09/11/22 07/16/22 History (Daliresp) ropinirole 0.25 mg tablet 0.25 mg PO BEDTIME 10/16/20 09/11/22 07/15/22 History tamsulosin 0.4 mg capsule 0.4 mg PO DAILY 10/16/20 09/11/22 07/16/22 History ascorbic acid (vitamin C) 500 mg 500 mg PO BID 10/17/21 09/11/22 07/16/22 History capsule cholecalciferol (vitamin D3) 75 25 mcg PO TID 10/17/21 09/11/22 07/16/22 History mcg (3,000 unit) tablet zinc acetate 50 mg (zinc) capsule 50 mg PO DAILY 10/17/21 09/11/22 07/16/22 History (Galzin) budesonide 0.25 mg/2 mL suspension 0.5 mg (4 mL) inhalation BID #10 mL 10/24/21 09/11/22 07/16/22 Rx for nebulization (Pulmicort) revefenacin 175 mcg/3 mL solution 175 mcg (3 mL) inhalation DAILY 10/24/21 09/11/22 07/16/22 Rx for nebulization (Yupelri) #90 mL arformoterol 15 mcg/2 mL solution 2 ml inhalation BID 30 days #120 mL 10/29/21 09/11/22 07/16/22 Rx for nebulization empagliflozin 10 mg tablet 10 mg PO DAILY 12/10/21 09/11/22 07/16/22 History (Jardiance) guaifenesin 400 mg tablet 400 mg PO Q8H PRN Congestion 07/16/22 09/11/22 07/16/22 History metoprolol succinate 25 mg 25 mg PO DAILY 07/16/22 09/11/22 07/16/22 History tablet,extended release 24 hr metoprolol succinate 50 mg 50 mg PO DAILY 07/16/22 09/11/22 07/16/22 History tablet,extended release 24 hr Allergies Allergy/AdvReac Type Severity Reaction Status Date / Time formoterol Allergy Unknown Unknown Verified 09/11/22 17:24 simvastatin AdvReac Intermediate ADR-Cramping Verified 09/11/22 17:24 of the Muscles Current Medications Generic Name Dose Route Start Last Admin Trade Name Freq PRN Reason Stop Dose Admin Acetylcysteine 100 mg 09/16/22 20:00 09/17/22 08:03 Acetylcysteine 200 Mg/Ml Sdv 4 Ml INHALATION 100 mg BID.RESPIRATORY JANNETTE Administration Albuterol Sulfate 2.5 mg 09/12/22 16:25 09/15/22 19:13 Albuterol 2.5 Mg/3 Ml Neb INHALATION 2.5 mg Q4H.RESPIRATORY PRN Administration short of breath or wheezing Albuterol Sulfate 2.5 mg 09/16/22 12:00 09/17/22 15:17 Albuterol 2.5 Mg/3 Ml Neb INHALATION 2.5 mg QID.RESPIRATORY JANNETTE Administration Apixaban 5 mg 09/12/22 07:00 09/17/22 06:06 Apixaban 5 Mg Tablet PO 5 mg BID@, JANNETTE Administration Atorvastatin Calcium 20 mg 09/12/22 21:00 09/16/22 21:24 Atorvastatin 40 Mg Tablet PO 20 mg BEDTIME JANNETTE Administration Budesonide 0.5 mg 09/12/22 08:00 09/17/22 08:03 Budesonide 0.5 Mg/2 Ml Neb INHALATION 0.5 mg BID.RESPIRATORY JANNETTE Administration Insulin Human Lispro 0 unit 09/12/22 08:00 09/17/22 17:41 Insulin Lispro 100 Unit/1 Ml SUBCUT Not Given WM&BEDTIME JANNETTE Protocol Ipratropium [place] 0.5 mg 09/16/22 12:00 09/17/22 15:17 Ipratropium 0.5 Mg/2.5 Ml Neb INHALATION 0.5 mg QID.RESPIRATORY JANNETTE Administration Lisinopril 5 mg 09/14/22 12:05 09/17/22 08:40 Lisinopril 5 Mg Tablet PO 5 mg DAILY JANNETTE Administration Loratadine 10 mg 09/15/22 09:00 09/17/22 08:40 Loratadine 10 Mg Tablet PO 10 mg DAILY JANNETTE Administration Metoprolol Succinate 25 mg 09/15/22 09:00 09/17/22 08:40 Metoprolol Succinate Er (24 Hr) 25 Mg Tablet PO 25 mg DAILY JANNETTE Administration Sodium Chloride 4 ml 09/16/22 20:00 09/17/22 08:04 Sodium Chloride 3.5% Neb 4 Ml Neb INHALATION 4 ml BID.RESPIRATORY JANNETTE Administration Tamsulosin HCl 0.4 mg 09/12/22 09:00 09/17/22 09:46 Tamsulosin 0.4 Mg Capsule PO 0.4 mg DAILY JANNETTE Administration PFSH Acute PFSH: Medical History Anticoagulation adequate Eliquis ASHD (arteriosclerotic heart disease) Atrial fibrillation BPH (benign prostatic hyperplasia) Carotid stenosis, bilateral CHF (congestive heart failure) CKD (chronic kidney disease) COPD (chronic obstructive pulmonary disease) COPD exacerbation Diabetes 1.5, managed as type 2 Diastolic CHF, acute on chronic Fracture of second metatarsal bone GERD (gastroesophageal reflux disease) Heart failure with preserved ejection fraction History of 2019 novel coronavirus disease (COVID-19) (~07/2020) History of echocardiogram (~11/2019) EF 50-55%, no valvular abnormalities, normal pulmonary pressures History of nonmelanoma skin cancer HTN (hypertension) Hyperlipidemia LBBB (left bundle branch block) On home oxygen therapy 4L MOSHE (obstructive sleep apnea) Bipap 09/03 Osteoporosis alendronate Pneumonia Pulmonary emphysema with fibrosis of lung RLS (restless legs syndrome) Surgical History S/P carotid endarterectomy S/P carpal tunnel release S/P sinus surgery Family History Mother , AGE 64 Diabetes Cancer Father , AGE 62 CAD (coronary artery disease) Social History Smoking and tobacco status: former smoker Quit status (tobacco): has quit using tobacco Year quit tobacco: 1999 [id number] Second hand smoke exposure: No Smoking risk assessment/counseling performed?: Yes Alcohol intake: never Lives independently: Yes Household members: spouse Housing: House Marital status: service: Yes branch: [employer] Current occupational status: retired Pets and animals: No History of recent travel: No Current gender identity: Male Vitals/I&O/Wt Last Vital Signs Temp 98 F 09/17/22 16:00 Pulse 76 09/17/22 16:00 Resp 18 09/17/22 16:00 BP 132/65 09/17/22 16:00 Pulse Ox 97 09/17/22 16:00 O2 Del Method 09/17/22 15:17 O2 Flow Rate 4 09/17/22 15:17 09/17/22 09/17/22 09/17/22 06:59 14:59 22:59 Intake Total 1080 / 1080 360 / 1440 Output Total 325 / 955 Balance -325 / 305 1080 / 1080 360 / 1440 Physical Exam Narrative: GENERAL: Patient is alert, awake and oriented x3. [] NECK: No jugular vein distension. [] HEENT: No cyanosis. No icterus. No pallor. [] HEART: Regular S1 and S2. No murmur, rub or gallop. [] LUNGS: Decreased breath sounds CENTRAL NERVOUS SYSTEM: Grossly nonfocal. [] EXTREMITIES: Lower extremities with no edema bilaterally. Pulses palpable in the lower extremities, both dorsalis pedis and posterior tibial. [] Data 09/17/22 03:56 09/17/22 03:56 Micro: Microbiology 09/16/22 19:15 Bacterial Antigens - Final Urine,Clean Catch 09/11/22 21:13 Blood Culture - Final Blood NO GROWTH AFTER 5 DAYS 09/11/22 21:09 Blood Culture - Final Blood NO GROWTH AFTER 5 DAYS 09/16/22 19:15 Legionella Urinary Antigen - Final Urine,Clean Catch A&P Assessment and plan (1) Cardiomyopathy: (2) CHF (congestive heart failure): (3) Atrial fibrillation: (4) Pneumonia: (5) Carotid stenosis, bilateral: (6) Diabetes 1.5, managed as type 2: (7) LBBB (left bundle branch block): (8) Ventricular ectopy: Plan Patient has new drop in LV systolic function along with persistent shortness of breath. We will proceed with coronary angiogram with possible percutaneous coronary intervention. Risks and benefits of the procedure of been discussed with the patient. He understands the risks and benefits and wants to proceed. He is currently on Eliquis. We will hold Eliquis and switch to Lovenox. Plan for coronary angiogram in 1 to 2 days. Continue current medications. Low-sodium diet Close I&O's. Thank you for involving us with care of this patient. We will continue to follow. Please call with questions. Consult Attestations Medical Necessity Statement: Care expected to cross 2 midnights. Coding Level of Care Code Acute Code for [facility] Diagnoses Cardiomyopathy I42.9 CHF (congestive heart failure) I50.9 Atrial fibrillation I48.91 Pneumonia J18.9 Carotid stenosis, bilateral I65.23 Diabetes 1.5, managed as type 2 E13.9 LBBB (left bundle branch block) I44.7 Ventricular ectopy I49.3
--- NOTE | 2022-09-17 19:22 | PC.NURSE ---
Patient resting in bed, visited at bedside throughout shift, this nurse attempted to call home phone and cell phone to give an update on status but no answer.
[2022-09-17] MEDS: atorvastatin 40 mg Tablet 20 MG PO (21:01)
[2022-09-17 22:04] LABS: Glucose Point of Care 135 mg/dL (70-110)
[2022-09-18] VITALS (17 sets, daily range): BP systolic 125–167; BP diastolic 68–82; PULSE 66–95; RESP 16–20; TEMP 36.4–36.8; O2SAT 95–99
[2022-09-18 05:16] LABS: Basophils # 0.1 10^3/uL (0.0-0.1); Basophils % 1.3 %; Eosinophils # 0.5 10^3/uL (0.0-0.8); Eosinophils % 8.1 %; Hematocrit 39.3 % (42.0-52.0); Lymphocytes # 2.2 10^3/uL (0.8-4.8); Lymphocytes % 32.2 %; Mean Corpuscular HGB Conc 30.5 g/dL (30.0-36.0); Mean Corpuscular Hemoglobin 26.4 pg (28.0-34.0); Mean Corpuscular Volume 86.6 fl (80-94); Mean Platelet Volume 10.9 fL (7.4-10.4); Monocytes # 0.9 10^3/uL (0.2-0.9); Monocytes % 12.9 %; Neutrophils # 2.98 10^3/uL (1.8-7.7); Neutrophils % 44.8 %; Nucleated Red Blood Cells % 0 %; Platelet Count 205 10^3/cmm (130-400); Red Blood Count 4.54 10^6/uL (4.1-5.3); Red Cell Distribution Width 15.9 % (12.1-15.1); White Blood Count 6.7 10^3/uL (4.0-10.0)
[2022-09-18 05:41] LABS: Alanine Aminotransferase 20 U/L (0-41); Alkaline Phosphatase 88 U/L (40-130); Anion Gap 12.8 (5-19); Aspartate Amino Transferase 20 U/L (0-40); Blood Urea Nitrogen 24 mg/dL (8-23); Calcium 8.8 mg/dL (8.5-10.5); Carbon Dioxide 27 mmol/L (22-29); Chloride 104 mmol/L (98-107); Globulin 3.4 g/dL (1.3-4.6); Glucose 112 mg/dL (65-115); Osmolality Calculated 293 mOsm/kg (285-295); Potassium 4.8 mmol/L (3.5-5.1); Sodium 139 mmol/L (136-145); Total Bilirubin 0.2 mg/dL (0.15-1.2); Total Protein 6.4 g/dL (6.6-8.7)
[2022-09-18 06:59] LABS: Glucose Point of Care 99 mg/dL (70-110)
[2022-09-18] MEDS: sodium chloride 3.5% neb 4 mL Neb INHALATION (07:45)
[2022-09-18] MEDS: ipratropium 0.5 mg/2.5 mL Neb INHALATION ×4 (07:45→21:27)
[2022-09-18] MEDS: albuterol 2.5 mg/3 mL Neb INHALATION ×4 (07:45→21:26)
[2022-09-18] MEDS: budesonide 0.5 mg/2 mL Neb INHALATION ×2 (07:45→21:27)
[2022-09-18] MEDS: acetylcysteine 200 mg/mL SDV 4 mL 100 MG INHALATION ×2 (07:45→21:28)
[2022-09-18] MEDS: tamsulosin 0.4 mg Capsule PO (09:19)
[2022-09-18] MEDS: metoprolol succinate ER (24 HR) 25 mg Tablet PO (09:19)
[2022-09-18] MEDS: lisinopril 5 mg Tablet PO (09:20)
[2022-09-18] MEDS: loratadine 10 mg Tablet PO (09:20)
--- NOTE | 2022-09-18 11:07 | PC.SOCIAL ---
Imm update Imm updated with patient at bedside. Copy of page 2 provided. Patient verbalized understanding. Copy in chart initialed, dated and timed.
--- NOTE | 2022-09-18 14:45 | P.PN_ITS ---
Subjective Subjective: Denies any new complaints today. He was evaluated by cardiology yesterday and is planned to undergo cardiac cath tomorrow. He needs to be 48 hours off Eliquis to proceed with cardiac catheterization. States that dyspnea is at baseline, requiring supplemental O2 at 3.5 L/min. Medications: Reviewed: Yes Vitals/I&O/Wt Last Vital Signs Temp 97.7 F 09/18/22 12:00 Pulse 92 09/18/22 12:00 Resp 18 09/18/22 12:00 BP 167/77 09/18/22 12:00 Pulse Ox 98 09/18/22 12:00 O2 Del Method 09/18/22 12:00 O2 Flow Rate 4 09/18/22 11:01 09/17/22 09/18/22 09/18/22 22:59 06:59 14:59 Intake Total 360 / 1440 480 / 1920 480 / 480 Output Total 600 / 600 1725 / 2325 600 / 600 Balance -240 / 840 -1245 / -405 -120 / -120 Physical Exam Narrative: General: No acute distress, AO x3, elderly frail-appearing gentlema n in no acute distress HEENT: PERRLA, pupils bilaterally equal and reactive, pallors not present Chest: Scattered wheezing to auscultation bilaterally CVS: S1-S2 regular, no murmurs, no tachycardia, no gallops, no rubs Abdomen: Soft, nontender, no organomegaly, bowel sounds present Neuro: No focal deficits, no facial deformity, AO x3, power 5/5 in all limbs Data 09/18/22 05:03 09/18/22 05:03 Micro: Microbiology 09/16/22 19:15 Bacterial Antigens - Final Urine,Clean Catch A&P Assessment and plan (1) Cardiomyopathy: New cardiomyopathy with ejection fraction down to 40%, previously 65%. LV hypokinesis. EKG with old LBBB, today with sinus rhythm with multiple VPCs. R eports that dyspnea has not significantly improved. Underwent stress test yesterday which shows partially reversible perfusion defect in the inferior wall consistent with a small sized prior infarct with minimal areas of karley-infarct ischemia in the RCA territory. During the course of his admission he has had issues with presyncopal episode, labile blood pressures. Given abnormal stress test cardiology consult was placed. Patient is scheduled to undergo a left heart cath tomorrow. Off Eliquis now. Needs to be off for 48 hours until tomorrow morning before proceeding with procedure We will repeat full dose Lovenox today while off Eliquis. (2) Labile blood pressure: Currently stable (3) Pre-syncope: As above with noted additional findings on TTE and carotid duplex. No further episodes during admission Presyncope may be result of combination of fluctuating blood pressure, intermittent bradycardia, with cardiomyopathy and finding of newly decreased EF, as well as worsening of now bilateral 50-69% carotid stenosis. Vital signs at the time of the episode unremarkable. Glucose unremarkable. Orthostatics requested, reviewed, negative. (4) Acute and chronic respiratory failure with hypoxia: Status post empiric course of antibiotics, continue oxygen support, wean down as tolerating. Remains on 4 L oxygen on review of vitals. Leukocytosis has resolved. Afebrile. Continue breathing treatments. Continue inhaled steroid. Acetylcysteine. MRSA PCR reviewed, negative. Urine bacterial antigens reviewed, negative (5) Pneumonia: Now excluded (6) Diabetes 1.5, managed as type 2: (7) Atrial fibrillation: A-fib with RVR, resolved with 1 dose of Cardizem IV. No further episodes. Continue cardiac monitoring. Continue metoprolol 25 mg p.o. daily, Eliquis on hold currently for possible angiogram. Will use full dose Lovenox in the interim.. (8) CHF (congestive heart failure): Acute systolic heart failure (9) COPD (chronic obstructive pulmonary disease): History of COPD: Gold class D: Chronically on 4 L of oxygen. Continue DuoNebs Budesonide inhaler Plan CODE STATUS: Full code DVT prophylaxis : On anticoagulation Attestations Medical Necessity Statement*: Plan for cardiac cath tomorrow Coding Level of Care Code Acute Code for Chg Fwd Straight Forward/Low MDM includes number and complexity of problems actively addressed during encounter, amount and/or complexity of data reviewed/ordered and described risk of complication, morbidity or mortality of management as documented Diagnoses Cardiomyopathy I42.9 Labile blood pressure R09.89 Pre-syncope R55 Acute and chronic respiratory failure with hypoxia J96.21 Pneumonia J18.9 Diabetes 1.5, managed as type 2 E13.9 Atrial fibrillation I48.91 CHF (congestive heart failure) I50.9 COPD (chronic obstructive pulmonary disease) J44.9
--- NOTE | 2022-09-18 14:45 | PC.NURSE ---
Addendum entered by Yesenia Casey RN 09/18/22 15:06: Called Brandie to update on patients transfer status. Original Note: Patient AAOx4, report called to Ana Luisa ALEX in [facility]. All questions addressed.
--- NOTE | 2022-09-18 15:05 | PC.NURSE ---
Patient arrived on the floor at 1455 from med surg via wheelchair. Patient hooked up to 3L via nasal cannula, connected to bedside telemetry and resting comfortably. Nurse oriented patient to room and made sure call light was within reach of patient.
[2022-09-18] MEDS: enoxaparin 100 mg/mL Syringe 70 MG SUBCUT (15:11)
--- NOTE | 2022-09-18 17:33 | P.PN_ITS ---
Subjective Subjective: Patient is stable. Denies chest pain. Still has shortness of breath. Vitals/I&O/Wt Last Vital Signs Temp 97.7 F 09/18/22 12:00 Pulse 83 09/18/22 15:51 Resp 16 09/18/22 15:46 BP 145/82 09/18/22 14:58 Pulse Ox 97 09/18/22 15:46 O2 Del Method 09/18/22 15:46 O2 Flow Rate 4 09/18/22 15:46 09/18/22 09/18/22 09/18/22 06:59 14:59 22:59 Intake Total 480 / 1920 480 / 480 Output Total 1725 / 2325 600 / 600 Balance -1245 / -405 -120 / -120 Physical Exam Narrative: GENERAL: Patient is alert, awake and oriented x3. [] NECK: No jugular vein distension. [] HEENT: No cyanosis. No icterus. No pallor. [] HEART: Regular S1 and S2. No murmur, rub or gallop. [] LUNGS: Decreased breath sounds CENTRAL NERVOUS SYSTEM: Grossly nonfocal. [] EXTREMITIES: Lower extremities with no edema bilaterally. Pulses palpable in the lower extremities, both dorsalis pedis and posterior tibial. [] Data 09/18/22 05:03 09/18/22 05:03 A&P Assessment and plan (1) Cardiomyopathy: (2) CHF (congestive heart failure): (3) Atrial fibrillation: (4) Pneumonia: (5) Carotid stenosis, bilateral: (6) Diabetes 1.5, managed as type 2: (7) LBBB (left bundle branch block): (8) Ventricular ectopy: Plan We will plan on coronary angiogram tomorrow. NPO past midnight. Keep holding eliquis Close I&O's. Thank you for involving us with care of this patient. We will continue to follow. Please call with questions. Attestations Medical Necessity Statement*: Care expected to cross 2 midnights. Coding Level of Care Code Acute Code for [facility] Fwd Diagnoses Cardiomyopathy I42.9 CHF (congestive heart failure) I50.9 Atrial fibrillation I48.91 Pneumonia J18.9 Carotid stenosis, bilateral I65.23 Diabetes 1.5, managed as type 2 E13.9 LBBB (left bundle branch block) I44.7 Ventricular ectopy I49.3
[2022-09-18] MEDS: insulin lispro 100 unit/1 mL SUBCUT (17:46)
[2022-09-18 17:48] LABS: Glucose Point of Care 138 mg/dL (70-110)
[2022-09-18 17:55] LABS: Glucose Point of Care 157 mg/dL (70-110)
[2022-09-18 20:03] LABS: Glucose Point of Care 95 mg/dL (70-110)
[2022-09-18] MEDS: atorvastatin 40 mg Tablet 20 MG PO (20:18)
[2022-09-19] VITALS (64 sets, daily range): BP systolic 117–172; BP diastolic 64–100; PULSE 67–90; RESP 7–39; TEMP 36.6–37.1; O2SAT 89–98
--- NOTE | 2022-09-19 05:11 | XACV_ITS ---
Exam Room: [facility] Ht: 155 cm Wt: 70 kg BSA: 1.76 m2 Gender: Male : 1945 Any Known Allergies: Other Exam Priority: Routine Procedure(s): Procedure Description: Diagnostic procedure Procedure Description: PCI procedure Procedure Description: Left Heart Catheterization Procedure Description: Left ventriculography Procedure Description: Drug Eluting Coronary Stent Procedure Description: PTCA Procedure Description: Coronary Angiography Procedure Description: Pressure Wire Diagnostic Cath Status: Urgent Diagnostic Findings * Left Main has no significant disease. * Circumflex has no significant disease. Large sized ramus/ Very high OM branch is patent. * Proximal Left Anterior Descending: obstructive 70-80% stenosis, FAYE: 3 flow. However was an eccenteric lesion. Decision made to perform iFR to confirm severity prior to intervention. * Right Coronary Artery has no signfiicant disease. Collateral is seen going to Left circumflex artery territory. * Coronary angiography shows right dominance. PCI Status: Elective PCI Indication: Other Interventional Findings * Proximal Left Anterior Descendin% stenosis treated with a AB TREK 2.50X12 RX BALLOON, and VALERIO Tubbs FABI 3.0X15 IFTIKHAR. 0% residual stenosis, FAYE: 3 flow. * PROCEDURE DETAIL: We engaged left main artery with CLS 3.0 guide catheter. IV heparin was administered to maintain ACT above 250 S. we advanced IFR wire after normalization into distal LAD vessel. iFR value of 0.75 was obtained. This confirmed severe proximal LAD stenosis. We predilated the stenosis with 2.5 x 12 mm semicompliant balloon. This was followed by placement of 3.0 x 15 mm resolute Fabi drug-eluting stent. At this time we had performed final angiogram that showed excellent stent expansion, no residual stenosis and FAYE-3 flow. Guidewire and guide catheter were removed. Patient left the Director Cost in a stable condition.. Conclusions 1. Severe proximal LAD stenosis s/p successful revascularization with DESx 1. 2. Proximal Left Anterior Descending was treated with a Balloon, and Drug Eluting Stent. Recommendations * Dual antiplatelet therapy with aspirin and plavix. * High intensity statin therapy. * Outpatient cardiology follow up in 4 weeks. Interventional RX Recommendation: PCI w/o planned CABG Diagnostic RX Recommendation: PCI w/o planned CABG Anticoagulation: Heparin Pressures Phase:Rest AO : 205 / 80 ( 125 ) @ 6:17:00 AM 157 / 86 ( 119 ) @ 6:18:00 AM 140 / 83 ( 109 ) @ 6:20:00 AM 184 / 84 ( 125 ) @ 6:24:00 AM 188 / 85 ( 129 ) @ 6:24:00 AM 176 / 84 ( 124 ) @ 6:30:00 AM 132 / 91 ( 110 ) @ 6:50:00 AM 179 / 70 ( 114 ) @ 6:55:00 AM 119 / 64 ( 89 ) @ 6:56:00 AM LV : 183 / -1 / 17 @ 6:23:00 AM 174 / -4 / 9 @ 6:24:00 AM Valves Phase:DefaultPhase AV : 0.0 @ 7:05:27 AM AV Mean Gradient: 0.0 @ 7:05:27 AM Clinical Evaluation EBL: 5mL-10mL Procedural Details Procedure Consent Obtained. Admit Source: In Patient. Pre-Procedure Time Out. Identified patient by full name and date of as verbalized by the patient/guarantor. Does the consent match the physician's order: Yes. Accurate & Complete Informed Consent: Yes. Inpatient/Outpatient History & Physical on Chart: Yes. If H&P is completed, is and addenduem needed: No; If yes, is the addendum complete: N/A. Visualize and Verify Site with Patient/Guarantor: N/A. Relevant Radiology Images available: N/A. The risks, benefits, and alternatives of sedation and/or procedure were discussed by physician. The patient agrees to continue. Procedure started. IV Site on Arrival: 20 gauge in the right wrist. Date on IV 09/11/22. Removed by Kelly Perdomo RN. Cath tip intact. [facility] Clinical Fraility Score: 3: Managing Well. Director Cost Indications: LV Dysfunction. Chest Pain Symptom Assessment: Atypical Angina. Cardiovascular Instability: No, stable. Correct patient, site and procedure confirmed by cath team. Current diagnosis: LV Dysfunction. PERRLA. Strong, equal hand groundman bilaterally. Lungs clear x 5 lobes. Pre Procedural Pulses: bilateral radial was 3+. Pre Procedural Pulses: bilateral posterior tibial was Doppled. Pre Procedural Pulses: bilateral dorsalis pedis was Doppled. Oxygen started at 3liters/min via nasal canula. A 20 gauge IV was started in the right anticubital using aseptic technique. IV Fluids: 0.9% NaCl at KVO. 0 mL infused prior to medical laboratory scientist. right groin was prepped with chloroprep then draped in the usual sterile fashion. right radial was prepped with chloroprep then draped in the usual sterile fashion. Physician notified. Baseline sample Acquired. HR: 93 BPM. Baseline sample Acquired. HR: 94 BPM. Physician arrived. Family updated by MD prior to the start of the procedure. Physician scrubbed in. Equipment: 5F - Femoral. Cardiac Cath Pack. ACIST Manifold Kit Model BT 2000. Inventory is JJ 5F 11cm Lucille Plus Sheath. Equipment: 5F - Radial. Equipment: 6F - Femoral. Equipment: 6F - Radial. Immediate Pre-Procedure Time Out. Correct Patient: Yes; Correct Procedure: Yes; Correct Site: Yes; Correct Patient Position: Yes; Correct Supplies: Yes; Dried Flammable Prep: Yes; Blood Products Available: N/A;. Lidocaine 1% infiltrated to the right radial. Nickolas Garcia RN, [employer] [employer] was relieved by RT Kolby(R) as monitoring person. Arterial access obtained. A 5 australian TIG catheter in over wire. Catheter and wire out. Contrast hand injected through the sheath. A 5 australian TIG catheter in over the glidewire. Inventory is TR Glidewire Angled .035 260cm. Multiple views taken of left coronary artery. Catheter redirected to the RCA. Multiple views taken of right coronary artery. EDP Sample taken: LV 183/-2,17; HR: 89 BPM; SpO2: 96%. Pullback taken: LV 174/-5,9; AO 184/84(125); Mean: 0mmHg, Peak to Peak: 0mmHg, SEP: 4sec/min; HR: 89 BPM; SpO2: 94%. Catheter removed over the exchange wire. Physician review of cine films. 6 australian CLS 3.5 guide catheter was inserted over the wire. Guide catheter out. 6 australian CLS 3 guide catheter was inserted over the wire. IFR guidewire was advanced through the guide catheter to lesion in the prox LAD. IFR Results: 0.78. Inflation number : 1 A AB TREK 2.50X12 RX BALLOON was prepped and advanced across the Prox LAD , then inflated to 8 NUBIA for 0:20 seconds. Inflation number: 2 The AB TREK 2.50X12 RX BALLOON was reinflated across the Prox LAD, to 8 NUBIA for 0:11 seconds. Inflation number: 3 The AB TREK 2.50X12 RX BALLOON was reinflated across the Prox LAD, to 8 NUBIA for 0:13 seconds. Balloon out. Inflation Number : 4 A VALERIO Tubbs FABI 3.0X15 IFTIKHAR -Lot Number# _[id number] EXP: 10/24/2024 was prepped and advanced across the Prox LAD. The stent was deployed at 12 NUBIA for 0:21 seconds. Stent balloon out over wire. Results checked. Wire out. Guide catheter out. ACT drawn. Results 222 seconds. Therapeutic limits - pre-heparin administration 90-150 seconds and monitoring heparin during a vascular procedure >250 seconds. A TR Band was successful obtaining hemostatsis at the Right Radial artery insertion site. Post Procedure: Pulses reassessed and unchanged. PERRLA. Strong, equal hand groundman bilaterally. No VTE prophylaxis required. Post-op diagnosis: Severe Proximal LAD stenosis. Medication's Wasted: Lidocaine 1% = 3 mL. Medication's Wasted: Nitro = 49.6 mg. Medication's Wasted: Heparin = 1000 units. Medication's Wasted: Other = Fentanyl 50 mg. Total IV fluids: 66 mL. Complications: None. Estimated blood loss: 5mL-10mL. Responsiveness - Normal response to verbal stimuli; alert and oriented, PERRLA. Airway - Unaffected, no intervention required; spontaneous ventilation. Circulation: W/N/L, pulses unchanged. Nausea/Vomiting: No. Procedure completed. Patient transferred by bed to CPRU. Vital chart was stopped. Access Site Site: Right Radial artery Sheath Size: 6 Fr Hemostasis Method: TR Band Hemostasis Success: Successful Procedure Medications Start: 6:06 AM Stop: 6:06 AM Medication: Versed 1 mg and Fentanyl 25 mcg Amount: 1 Route: I.V. Start: 6:07 AM Stop: 6:07 AM Medication: Benadryl Amount: 50 mg Route: I.V. Start: 6:13 AM Stop: 6:13 AM Medication: Nitrogylcerin Amount: 200 mcg Route: I.A. Start: 6:13 AM Stop: 6:13 AM Medication: Fentanyl Amount: 25 mcg Route: I.V. Start: 6:16 AM Stop: 6:16 AM Medication: Heparin Amount: 5000 units Route: I.V. Start: 6:28 AM Stop: 6:28 AM Medication: Heparin Amount: 1000 units Route: I.V. Start: 6:41 AM Stop: 6:41 AM Medication: Versed Amount: 1 mg Route: I.V. Start: 6:48 AM Stop: 6:48 AM Medication: Heparin Amount: 2000 units Route: I.V. Start: 6:52 AM Stop: 6:52 AM Medication: Aggrastat 12.5 mg/250 mL Amount: 35 ml Route: I.V. bolus Start: 6:53 AM Stop: 6:53 AM Medication: Aggrastat 12.5 mg/250 mL Amount: ml/hr Route: I.V. drip Start: 6:55 AM Stop: 6:55 AM Medication: Nitrogylcerin Amount: 200 mcg Route: I.C. Start: 6:57 AM Stop: 6:57 AM Medication: Plavix Amount: 600 mg Route: P.O. Start: 6:58 AM Stop: 6:58 AM Medication: Aspirin Amount: 325 mg Route: P.O. I, the attending physician, have reviewed and verified all procedure medications. Yes, all medications given per verbal order History/Risk Factors Hypertension: Yes Dyslipidemia: Yes Peripheral Arterial Disease (PAD): No Myocardial Infarction (CT): No Obesity: No Renal Disease: No Tobacco Use: Former Prior Interventions PCI: No CABG: No Valve Surgery: No Report Signatures Finalized by Ghulam Aguilar MD on 09/24/2022 10:04 AM
--- NOTE | 2022-09-19 06:06 | W.PM.OPSUD ---
Surgery/Procedure H&P Update DATE OF PROCEDURE: September 19, 2022 DATE H&P PERFORMED: 09/17/22 H&P UPDATE INFORMATION: I have reviewed H&P completed within last 30 days, I have examined patient prior to procedure and No changes to prior documentation PREOP DIAGNOSIS: LV dysfunction PRIMARY INDICATION FOR PROCEDURE: LV dysfunction PLANNED PROCEDURE: Operation Date: 09/19/22 00:00 Proposed Procedures p Cardiac Catheterization(Left) - Ghulam Aguilar M.D Possible percutaneous coronary intervention PATIENT REASSESSED PRIOR TO SEDATION, WITH NO CHANGE NOTED: Yes PHYSICAL EXAM: alert, oriented x 3, clear to auscultation bilaterally and regular rate & rhythm AIRWAY EVAL/ANESTHESIA PLAN: normal airway, ASA III, Local Anesthesia, Risks, benefits & alternatives of sedation and/or procedure discussed and Patient agrees to continue as planned ADDITIONAL INFORMATION: Possible percutaneous coronary intervention
[2022-09-19] MEDS: sodium chloride 0.9% 1,000 ML 100 ML IV (07:15)
[2022-09-19 07:50] LABS: Glucose Point of Care 126 mg/dL (70-110)
[2022-09-19] MEDS: metoprolol succinate ER (24 HR) 25 mg Tablet PO (08:27)
[2022-09-19] MEDS: loratadine 10 mg Tablet PO (08:27)
[2022-09-19] MEDS: lisinopril 5 mg Tablet PO (08:28)
[2022-09-19] MEDS: tamsulosin 0.4 mg Capsule PO (08:28)
[2022-09-19] MEDS: acetylcysteine 200 mg/mL SDV 4 mL 100 MG INHALATION ×2 (09:08→21:43)
[2022-09-19] MEDS: albuterol 2.5 mg/3 mL Neb INHALATION ×4 (09:08→21:35)
[2022-09-19] MEDS: budesonide 0.5 mg/2 mL Neb INHALATION ×2 (09:09→21:36)
[2022-09-19] MEDS: ipratropium 0.5 mg/2.5 mL Neb INHALATION ×4 (09:09→21:38)
--- NOTE | 2022-09-19 11:25 | PC.NURSE ---
received from cardiac laboratory apparatus glass blower at 0715.report received.pt is alert and oriented x 4.denies pain at present.sr w/pvc's on monitor.right wrist with tr band on and inflated.right hand is warm to touch and with brisk capillary refill.no hematoma noted.palpable radial pulse noted distal to tr band.pt instructed in activity restrictions s/p radial artery procedure..and instructed to notify staff for any bleeding,pain,numbness,sob,or for any concerns at all.pt verb understanding of instructions
--- NOTE | 2022-09-19 11:28 | PC.NURSE ---
at 11:00 the tirofiban was dc'd as instructed by specialist employee labor relations.attempted to pull 2 cc air from tr band.bleeding noted.2 cc of reinserted into tr band.
[2022-09-19] MEDS: sodium chloride 3.5% neb 4 mL Neb INHALATION ×2 (11:35→21:39)
[2022-09-19 11:52] LABS: Glucose Point of Care 165 mg/dL (70-110)
[2022-09-19] MEDS: insulin lispro 100 unit/1 mL SUBCUT (12:07)
--- NOTE | 2022-09-19 14:53 | P.PN_ITS ---
Subjective Subjective: Patient underwent cardiac cath this morning which showed severe proximal LAD stenosis. Underwent PCI with 1 stent. Tolerated procedure well. At this present time he has no new complaints. States that his breathing is a little bit better since the procedure. Currently saturating well on 2 L/min. Medications: Reviewed: Yes Vitals/I&O/Wt Last Vital Signs Temp 98.6 F 09/19/22 11:40 Pulse 78 09/19/22 11:53 Resp 16 09/19/22 11:53 BP 144/86 09/19/22 11:40 Pulse Ox 96 09/19/22 11:53 O2 Del Method 09/19/22 11:53 O2 Flow Rate 3 09/19/22 11:53 09/18/22 09/19/22 09/19/22 22:59 06:59 14:59 Intake Total 480 / 960 720 / 720 Output Total 450 / 1050 700 / 1750 Balance 30 / -90 -700 / -790 720 / 720 Physical Exam Narrative: General: No acute distress, AO x3 HEENT: PERRLA, pupils bilaterally equal and reactive, pallors not present Chest: Normal vesicular breath sounds, no added sounds, equal good air entry bilaterally CVS: S1-S2 regular, no murmurs, no tachycardia, no gallops, no rubs Abdomen: Soft, nontender, no organomegaly, bowel sounds present Neuro: No focal deficits, no facial deformity, AO x3, power 5/5 in all limbs Data 09/18/22 05:03 09/18/22 05:03 A&P Assessment and plan (1) Coronary artery disease: Status post stenting to proximal LAD this morning. Has been started on Plavix 75 mg p.o. daily, plan to discharge on Plavix 75 mg daily and resumption of Eliquis 5 mg p.o. twice daily. Today he has received aspirin and Plavix, plan discharge tomorrow on Plavix and Eliquis. Continue statins, metoprolol (2) Cardiomyopathy: New cardiomyopathy with ejection fraction down to 40%, previously 65%. LV hypokinesis. EKG with old LBBB, today with sinus rhythm with multiple VPCs. Reports that dyspnea has not significantly improved. Underwent stress test which shows partially reversible perfusion defect in the inferior wall consistent with a small sized prior infarct with minimal areas of karley-infarct ischemia in the RCA territory. During the course of his admission he has had issues with presyncopal episode, labile blood pressures. Given abnormal stress test he underwent coronary angiogram this morning which found severe LAD disease. He is status post stenting this morning. (3) Labile blood pressure: Currently stable (4) Pre-syncope: As above with noted additional findings on TTE and carotid duplex. Last episode on September 13 while undergoing nebulization. No further episodes during admission Presyncope may be result of combination of fluctuating blood pressure, intermittent bradycardia, with cardiomyopathy and finding of newly decreased EF, as well as worsening of now bilateral 50-69% carotid stenosis. Vital signs at the time of the episode unremarkable. Glucose unremarkable. Orthostatics requested, reviewed, negative. (5) Acute and chronic respiratory failure with hypoxia: Status post empiric course of antibiotics, continue oxygen support, wean down as tolerating. Now down to 2 L/min. Leukocytosis has resolved. Afebrile. Continue breathing treatments. Continue inhaled steroid. Acetylcysteine. (6) Pneumonia: Now excluded, has received an empiric course (7) Diabetes 1.5, managed as type 2: (8) Atrial fibrillation: A-fib with RVR, resolved with 1 dose of Cardizem IV. No further episodes. Continue cardiac monitoring. Continue metoprolol 25 mg p.o. daily, resume Eliquis at discharge. Heart rate is currently well controlled. (9) CHF (congestive heart failure): Acute systolic heart failure Minimal developing pitting edema today. D/c IVF going at 100 cc/hr. (10) COPD (chronic obstructive pulmonary disease): History of COPD: Gold class D: Chronically on 4 L of oxygen. Continue DuoNebs Budesonide inhaler Plan CODE STATUS: Full code DVT prophylaxis : On anticoagulation Attestations Medical Necessity Statement*: Status postcardiac cath today, resume Eliquis tomorrow discontinue IV fluids, anticipate discharge in the upcoming 24 hours. Coding Level of Care Code Acute Code for [facility] Diagnoses Coronary artery disease I25.10 Cardiomyopathy I42.9 Labile blood pressure R09.89 Pre-syncope R55 Acute and chronic respiratory failure with hypoxia J96.21 Pneumonia J18.9 Diabetes 1.5, managed as type 2 E13.9 Atrial fibrillation I48.91 CHF (congestive heart failure) I50.9 COPD (chronic obstructive pulmonary disease) J44.9
--- NOTE | 2022-09-19 15:07 | PM.PN ---
Subjective Subjective: Patient underwent successful revascularization of the proximal LAD today with IFTIKHAR x 1. He is doing well. Vitals/I&O/Wt Last Vital Signs Temp 98.6 F 09/19/22 11:40 Pulse 78 09/19/22 11:53 Resp 16 09/19/22 11:53 BP 144/86 09/19/22 11:40 Pulse Ox 96 09/19/22 11:53 O2 Del Method 09/19/22 11:53 O2 Flow Rate 3 09/19/22 11:53 09/19/22 09/19/22 09/19/22 06:59 14:59 22:59 Intake Total 720 / 720 Output Total 700 / 1750 Balance -700 / -790 720 / 720 Physical Exam Narrative: GENERAL: Patient is alert, awake and oriented x3. [] NECK: No jugular vein distension. [] HEENT: No cyanosis. No icterus. No pallor. [] HEART: Regular S1 and S2. No murmur, rub or gallop. [] LUNGS: Decreased breath sounds CENTRAL NERVOUS SYSTEM: Grossly nonfocal. [] EXTREMITIES: Lower extremities with no edema bilaterally. Pulses palpable in the lower extremities, both dorsalis pedis and posterior tibial. [] Data 09/18/22 05:03 09/18/22 05:03 A&P Assessment and plan (1) Cardiomyopathy: (2) CHF (congestive heart failure): (3) Atrial fibrillation: (4) Pneumonia: (5) Carotid stenosis, bilateral: (6) Diabetes 1.5, managed as type 2: (7) LBBB (left bundle branch block): (8) Ventricular ectopy: Plan Patient had a successful revascularization of proximal LAD with IFTIKHAR x1. He has been loaded with aspirin and Plavix. Tomorrow can be switched back to Eliquis 5 mg twice daily and Plavix 75 mg daily. Monitor renal function Thank you for involving us with care of this patient. We will continue to follow. Please call with questions. Attestations Medical Necessity Statement*: Care expected to cross 2 midnights. Coding Level of Care Code Acute Code for [facility] Fwd Diagnoses Cardiomyopathy I42.9 CHF (congestive heart failure) I50.9 Atrial fibrillation I48.91 Pneumonia J18.9 Carotid stenosis, bilateral I65.23 Diabetes 1.5, managed as type 2 E13.9 LBBB (left bundle branch block) I44.7 Ventricular ectopy I49.3
--- NOTE | 2022-09-19 16:45 | PC.NURSE ---
tr band slowly deflated over several hours.no further bleeding noted.tr band off at 1500.no hematoma noted.site dressed with 2x2 gauze and secured with biocclusive drsg.pt instructed in activity restrictions post tr band removal.and instructed to notify staff for any bleeding,numbness,pain..or for any concerns at all.pt verb understanding of instructions
[2022-09-19 17:00] LABS: Glucose Point of Care 122 mg/dL (70-110)
[2022-09-19] MEDS: atorvastatin 40 mg Tablet 20 MG PO (20:13)
[2022-09-19 21:11] LABS: Glucose Point of Care 172 mg/dL (70-110)
[2022-09-20] VITALS (58 sets, daily range): BP systolic 133–169; BP diastolic 65–122; PULSE 69–106; RESP 6–27; TEMP 36.9–37.2; O2SAT 87–99
[2022-09-20 03:50] LABS: Basophils # 0.1 10^3/uL (0.0-0.1); Basophils % 1.3 %; Eosinophils # 0.5 10^3/uL (0.0-0.8); Hematocrit 38.5 % (42.0-52.0); Hemoglobin 11.7 g/dL (11.7-16.6); Lymphocytes # 2.2 10^3/uL (0.8-4.8); Lymphocytes % 27.6 %; Mean Corpuscular HGB Conc 30.4 g/dL (30.0-36.0); Mean Corpuscular Hemoglobin 25.8 pg (28.0-34.0); Mean Corpuscular Volume 84.8 fl (80-94); Mean Platelet Volume 10.9 fL (7.4-10.4); Monocytes # 0.9 10^3/uL (0.2-0.9); Neutrophils # 4.12 10^3/uL (1.8-7.7); Neutrophils % 52.5 %; Nucleated Red Blood Cells % 0 %; Platelet Count 209 10^3/cmm (130-400); Red Blood Count 4.54 10^6/uL (4.1-5.3); Red Cell Distribution Width 15.7 % (12.1-15.1); White Blood Count 7.8 10^3/uL (4.0-10.0)
[2022-09-20 04:09] LABS: Alanine Aminotransferase 38 U/L (0-41); Albumin Level 3.1 g/dL (3.5-5.2); Alkaline Phosphatase 104 U/L (40-130); Anion Gap 10.3 (5-19); Aspartate Amino Transferase 31 U/L (0-40); Blood Urea Nitrogen 24 mg/dL (8-23); Calcium 8.9 mg/dL (8.5-10.5); Carbon Dioxide 29 mmol/L (22-29); Chloride 102 mmol/L (98-107); Globulin 3.3 g/dL (1.3-4.6); Glucose 109 mg/dL (65-115); Osmolality Calculated 289 mOsm/kg (285-295); Potassium 4.3 mmol/L (3.5-5.1); Sodium 137 mmol/L (136-145); Total Bilirubin 0.2 mg/dL (0.15-1.2); Total Protein 6.4 g/dL (6.6-8.7)
[2022-09-20 06:37] LABS: Glucose Point of Care 95 mg/dL (70-110)
[2022-09-20] MEDS: acetylcysteine 200 mg/mL SDV 4 mL 100 MG INHALATION (07:28)
[2022-09-20] MEDS: budesonide 0.5 mg/2 mL Neb INHALATION (07:28)
[2022-09-20] MEDS: albuterol 2.5 mg/3 mL Neb INHALATION ×2 (07:28→11:07)
[2022-09-20] MEDS: ipratropium 0.5 mg/2.5 mL Neb INHALATION ×2 (07:28→11:08)
--- NOTE | 2022-09-20 07:53 | P.PN_ITS ---
Subjective Subjective: Patient is stable . no chest pain. Vitals/I&O/Wt Last Vital Signs Temp 98.5 F 09/20/22 04:00 Pulse 80 09/20/22 07:44 Resp 18 09/20/22 07:31 BP 162/83 09/20/22 04:00 Pulse Ox 94 09/20/22 07:31 O2 Del Method 09/20/22 07:31 O2 Flow Rate 2 09/20/22 07:31 09/19/22 09/20/22 09/20/22 22:59 06:59 14:59 Intake Total 1960 / 2680 550 / 3230 Output Total 1400 / 1400 1350 / 2750 Balance 560 / 1280 -800 / 480 Physical Exam Narrative: GENERAL: Patient is alert, awake and oriented x3. [] NECK: No jugular vein distension. [] HEENT: No cyanosis. No icterus. No pallor. [] HEART: Regular S1 and S2. No murmur, rub or gallop. [] LUNGS: Decreased breath sounds CENTRAL NERVOUS SYSTEM: Grossly nonfocal. [] EXTREMITIES: Lower extremities with no edema bilaterally. Pulses palpable in the lower extremities, both dorsalis pedis and posterior tibial. [] Data 09/20/22 03:15 09/20/22 03:15 A&P Assessment and plan (1) Coronary artery disease: (2) Cardiomyopathy: (3) CHF (congestive heart failure): (4) Atrial fibrillation: (5) Pneumonia: (6) Carotid stenosis, bilateral: (7) Diabetes 1.5, managed as type 2: (8) LBBB (left bundle branch block): (9) Ventricular ectopy: Plan Patient had a successful revascularization of proximal LAD with IFTIKHAR x1. Continue Plavix. Restart Eliquis 5 mg twice daily. Renal function is stable. Thank you for involving us with care of this patient. Patient is stable to be Discharged from cardiology standpoint. Please call with questions. Attestations Medical Necessity Statement*: Care expected to cross 2 midnights. Coding Level of Care Code Acute Code for [facility] Diagnoses Coronary artery disease I25.10 Cardiomyopathy I42.9 CHF (congestive heart failure) I50.9 Atrial fibrillation I48.91 Pneumonia J18.9 Carotid stenosis, bilateral I65.23 Diabetes 1.5, managed as type 2 E13.9 LBBB (left bundle branch block) I44.7 Ventricular ectopy I49.3
[2022-09-20] MEDS: aspirin 81 mg EC Tablet PO (08:55)
[2022-09-20] MEDS: lisinopril 5 mg Tablet PO (08:55)
[2022-09-20] MEDS: metoprolol succinate ER (24 HR) 25 mg Tablet PO (08:55)
[2022-09-20] MEDS: loratadine 10 mg Tablet PO (08:55)
[2022-09-20] MEDS: clopidogrel 75 mg Tablet PO (08:55)
[2022-09-20] MEDS: tamsulosin 0.4 mg Capsule PO (08:55)
--- NOTE | 2022-09-20 10:50 | PM.PN ---
Subjective Subjective: Reports feeling well today. Denies chest pain or worsening shortness of breath. States that he feels he could go home. Has been up walking around more. Vitals/I&O/Wt Last Vital Signs Temp 98.5 F 09/20/22 04:00 Pulse 82 09/20/22 08:00 Resp 21 H 09/20/22 08:00 BP 149/122 09/20/22 08:00 Pulse Ox 91 09/20/22 08:00 O2 Del Method 09/20/22 07:31 O2 Flow Rate 2 09/20/22 07:31 09/19/22 09/20/22 09/20/22 22:59 06:59 14:59 Intake Total 1960 / 2680 550 / 3230 480 / 480 Output Total 1400 / 1400 1350 / 2750 Balance 560 / 1280 -800 / 480 480 / 480 Physical Exam Narrative: General: Cooperative patient in no apparent distress. Well developed. HEENT: Normocephalic, Atraumatic. External ears normal. Nasal passages patent without drainage. MMM. Heart: RRR. Resp: LCTA. On 2L O2 per N/C. Abd: Soft, non-tender. Non-distended. Extremities: No edema. Skin: No rash or lesions on exposed areas. Data 09/20/22 03:15 09/20/22 03:15 A&P Assessment and plan (1) Coronary artery disease: Vitals stable. S/P LAD stenting. No further chest pain. Continue Plavix, Eliquis, statins, metoprolol. (2) Cardiomyopathy: New cardiomyopathy with ejection fraction down to 40%, previously 65%. LV hypokinesis. EKG with old LBBB. (3) Labile blood pressure: Currently stable (4) Pre-syncope: Resolved. (5) Acute and chronic respiratory failure with hypoxia: Status post empiric course of antibiotics, continue oxygen support, wean down as tolerating. Now down to 2 L/min. Leukocytosis has resolved. Afebrile. Continue breathing treatments. (6) Pneumonia: Now excluded, has received an empiric course (7) Diabetes 1.5, managed as type 2: (8) Atrial fibrillation: A-fib with RVR, resolved with 1 dose of Cardizem IV. No further episodes. Continue cardiac monitoring. Continue metoprolol 25 mg p.o. daily, resume Eliquis at discharge. Heart rate is currently well controlled. (9) CHF (congestive heart failure): Stable. (10) COPD (chronic obstructive pulmonary disease): History of COPD: Gold class D: Chronically on 4 L of oxygen. Continue DuoNebs Budesonide inhaler Plan Code Status: Full IVF: None DVT PPx: Eliquis GI PPx: None Diet: Heart Healthy Disposition: Discharge to home when appropriate with cardiology. Attestations Medical Necessity Statement*: S/P Cardiac stenting to LAD. Planning for possible discharge today. Coding Level of Care Code Acute Code for Chg Fwd Straight Forward/Low MDM includes number and complexity of problems actively addressed during encounter, amount and/or complexity of data reviewed/ordered and described risk of complication, morbidity or mortality of management as documented Diagnoses Coronary artery disease I25.10 Cardiomyopathy I42.9 Labile blood pressure R09.89 Pre-syncope R55 Acute and chronic respiratory failure with hypoxia J96.21 Pneumonia J18.9 Diabetes 1.5, managed as type 2 E13.9 Atrial fibrillation I48.91 CHF (congestive heart failure) I50.9 COPD (chronic obstructive pulmonary disease) J44.9
[2022-09-20 11:28] LABS: Glucose Point of Care 119 mg/dL (70-110)
--- NOTE | 2022-09-20 13:40 | PM.DCS ---
Discharge Providers Date of Admission: 09/11/22 21:01 Date of Discharge: September 20, 2022 Attending Provider at Admission: Maximiliano Arteaga MD Attending Provider at Discharge: Wilfredo Spencer DO Primary Care Provider: AYAKA Millan Diagnoses at Discharge Discharge Diagnosis (1) Coronary artery disease: Status: Acute (2) Cardiomyopathy: Status: Acute (3) Labile blood pressure: Status: Resolved (4) Pre-syncope: Status: Resolved (5) Acute and chronic respiratory failure with hypoxia: Status: Resolved (6) Pneumonia: Status: Resolved (7) Diabetes 1.5, managed as type 2: Status: Chronic (8) Atrial fibrillation: Status: Acute (9) CHF (congestive heart failure): Status: Acute (10) COPD (chronic obstructive pulmonary disease): Status: Acute Reason for Visit Reason for Visit: SOB Hospital Course Hospital Course 77 year old male with a past medical history of COPD, HFpEF, chronically on 4 L, on BiPAP at home, history of atrial fibrillation on Eliquis, hypertension, hyperlipidemia, CAD, bilateral carotid artery stenosis, CKD, type 2 diabetes, history of left bundle branch block, MOSHE, 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 Patient had apparently been having more difficulty breathing over the last couple of days and began to have significant oxygen desaturation on minimal exertion. 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 He was admitted to the hospital and started on vancomycin and Zosyn. A CT of his chest with contrast showed severe emphysema and bilateral lower lobe pneumonia. He was started on supplemental oxygen and respiratory treatments. During his stay he did convert into atrial fibrillation rhythm. His medications were adjusted and he was continued on his Eliquis. His rate did improve on Cardizem. There was some difficulties managing his blood pressures over the course of his stay and his medications were adjusted. He began to have pressures into the 160 and 170 range, that would also drop very low. Further cardiac work-up was obtained and cardiology was consulted. He was noted to have severe stenosis of the LAD and was treated with successful revascularization. He was restarted on his Plavix and Eliquis. Patient began to feel improvement after this procedure, and he was discharged in stable and improved condition with instructions to follow-up with his PCP, and discussion of his medication regimen. Physical Exam Narrative: General: Cooperative patient in no apparent distress. Well developed. HEENT: Normocephalic, Atraumatic. External ears normal. Nasal passages patent without drainage. MMM. Heart: RRR. Resp: LCTA. No respiratory distress, no use of accessory muscles. Abd: Soft, non-tender. Non-distended. Extremities: No edema. Skin: No rash or lesions on exposed areas. Discharge Data Studies Completed and Pending Completed Studies During Hospitalization Category Date Time Status CT chest w con* [id number] Stat Cat Scan 09/11/22 19:[address] head wo con* [id number] Routine Cat Scan 09/14/22 12:06 Completed Sestamibi Stress Test Request Routine Exams 09/16/22 09:00 Draft NM nora perf SPECT r/s* [id number] Routine Nuc Med 09/16/22 10:50 Completed CV carotid duplex BI* [id number] Routine Ultrasound 09/14/22 12:00 Completed CV. echo wo/w contrast [id number] Routine Ultrasound 09/13/22 08:41 Completed Pending at discharge Category Date Time Status INDUSTRIAL ROOFER request for service Routine Exams 09/19/22 05:11 Taken Radiology Impressions Chest CT 09/11/22 19:39 IMPRESSION: 1. Severe emphysema 2. Bilateral lower lobe pneumonia 3. Mild mediastinal and hilar adenopathy, likely reactive. 4. Stable appearing scarring in the pulmonary apices. COMMENTS: In the absence of a history or active diagnosis of lung cancer, it is recommended that this patient with emphysema be evaluated for enrollment in a low dose CT lung cancer screening program. Carotid Doppler Study 09/14/22 12:00 IMPRESSION: 1. 50-69% stenosis right internal carotid artery 2. 50-69% stenosis left internal carotid artery. 3. Patent bilateral vertebral arteries with normal direction of flow. REFERENCES: SRU CRITERIA. The degree of internal carotid artery stenosis is based on criteria defined by the Society of Radiologists in Ultrasound (SRU). Normal is no stenosis. Mild is less than 50% stenosis. Moderate is 50-69% stenosis. Severe is greater than 69% stenosis to near occlusion. Near occlusion is a markedly narrowed lumen. Total occlusion is no detectable patent lumen. Head CT 09/14/22 12:06 IMPRESSION: 1. No acute intracranial abnormality. 2. Inflammatory changes of the right maxillary sinus, suggestive of acute on chronic sinusitis. Laboratory Results WBC 7.8 10^3/uL (4.0-10.0) 09/20/22 03:15 RBC 4.54 10^6/uL (4.1-5.3) 09/20/22 03:15 Hgb 11.7 g/dL (11.7-16.6) 09/20/22 03:15 Hct 38.5 % (42.0-52.0) L 09/20/22 03:15 MCV 84.8 fl (80-94) 09/20/22 03:15 MCH 25.8 pg (28.0-34.0) L 09/20/22 03:15 MCHC 30.4 g/dL (30.0-36.0) 09/20/22 03:15 RDW 15.7 % (12.1-15.1) H 09/20/22 03:15 Plt Count 209 10^3/cmm (130-400) 09/20/22 03:15 MPV 10.9 fL (7.4-10.4) H 09/20/22 03:15 Neut % (Auto) 52.5 % 09/20/22 03:15 Lymph % (Auto) 27.6 % 09/20/22 03:15 [place] % (Auto) 12.0 % 09/20/22 03:15 Eos % (Auto) 6.0 % 09/20/22 03:15 Baso % (Auto) 1.3 % 09/20/22 03:15 Neut # (Auto) 4.12 10^3/uL (1.8-7.7) 09/20/22 03:15 Lymph # (Auto) 2.2 10^3/uL (0.8-4.8) 09/20/22 03:15 [place]fisher # (Auto) 0.9 10^3/uL (0.2-0.9) 09/20/22 03:15 Eos # (Auto) 0.5 10^3/uL (0.0-0.8) 09/20/22 03:15 Baso # (Auto) 0.1 10^3/uL (0.0-0.1) 09/20/22 03:15 Nucleated RBC % (auto) 0 % 09/20/22 03:15 Nucleated RBCs # 0.0 /100WBC 09/20/22 03:15 PT 15.00 SECONDS (12.1-14.9) H 09/11/22 18:46 INR 1.14 (0.8-1.2) 09/11/22 18:46 APTT 32.2 SECONDS (23.9-36.7) 09/11/22 18:46 Specimen Type Venous 09/11/22 18:37 Sample Site Not specified 09/11/22 18:37 Mariano Test N/a 09/11/22 18:37 VBG pH 7.43 (7.32-7.42) H 09/11/22 18:37 VBG pCO2 41.8 mmHg (41-51) 09/11/22 18:37 VBG pO2 43.0 mmHg (25-40) H 09/11/22 18:37 VBG HCO3 27.8 mmol/L (24-28) 09/11/22 18:37 VBG Base Excess 3.2 mmol/L (-3.0-3.0) H 09/11/22 18:37 VBG Hematocrit 21.1 % (42-52) L 09/11/22 18:37 O2 Delivery Device Nc 09/11/22 18:37 O2 Liters/Min 3.0 % 09/11/22 18:37 FiO2 32.0 % 09/11/22 18:37 Cemetery Keeper ID Amh 09/11/22 18:37 Sodium 137 mmol/L (136-145) 09/20/22 03:15 Potassium 4.3 mmol/L (3.5-5.1) 09/20/22 03:15 Chloride 102 mmol/L (98-107) 09/20/22 03:15 Carbon Dioxide 29 mmol/L (22-29) 09/20/22 03:15 Anion Gap 10.3 (5-19) 09/20/22 03:15 BUN 24 mg/dL (8-23) H 09/20/22 03:15 Creatinine 0.8 mg/dL (0.7-1.2) 09/20/22 03:15 GFR Calculation Not Reportable 09/20/22 03:15 Glucose 109 mg/dL (65-115) 09/20/22 03:15 POC Glucose 119 mg/dL (70-110) H 09/20/22 11:17 Calculated Osmolality 289 mOsm/kg (285-295) 09/20/22 03:15 Lactic Acid 0.9 mmol/L (0.5-2.2) 09/11/22 21:09 Calcium 8.9 mg/dL (8.5-10.5) 09/20/22 03:15 Magnesium 1.9 mg/dL (1.7-2.3) 09/12/22 04:13 Total Bilirubin 0.2 mg/dL (0.15-1.2) 09/20/22 03:15 AST 31 U/L (0-40) 09/20/22 03:15 ALT 38 U/L (0-41) 09/20/22 03:15 Alkaline Phosphatase 104 U/L (40-130) 09/20/22 03:15 Troponin T Gen 5 ng/L 11 ng/L (0-15) 09/11/22 18:46 Troponin T Baseline 25 ng/L (0-15) H 09/13/22 08:50 Troponin T 120 Minute 24.98 ng/L (0-15) H 09/13/22 10:45 Delta Troponin T -0.02 ABS# (0-10) L 09/13/22 10:45 Troponin T Hi Sens 6Hr 23.01 ng/L (0-15) H 09/13/22 14:45 Troponin T Hi Sens 6Hr Delta -1.99 ng/L (0-12) L 09/13/22 14:45 NT-Pro-B Natriuret Pep 765 pg/mL (0-450) H 09/11/22 18:46 Total Protein 6.4 g/dL (6.6-8.7) L 09/20/22 03:15 Albumin 3.1 g/dL (3.5-5.2) L 09/20/22 03:15 Globulin 3.3 g/dL (1.3-4.6) 09/20/22 03:15 Procalcitonin 0.09 ng/mL (0-0.5) 09/15/22 04:40 Vancomycin Trough 10.8 ug/mL (10-15) 09/13/22 10:45 Coronavirus 229E (PCR) Not detected (NOT DETECT) 09/11/22 21:27 SARS-CoV-2 (PCR) Not detected (NOT DETECT) 09/11/22 21:27 Vitals Last Vital Signs Temp 98.5 F 09/20/22 04:00 Pulse 88 09/20/22 12:45 Resp 20 H 09/20/22 12:45 BP 160/71 09/20/22 12:45 Pulse Ox 96 09/20/22 12:45 O2 Del Method 09/20/22 12:45 O2 Flow Rate 2 09/20/22 12:45 Discharge Plan Discharge Patient Disposition: Home Health Service Condition: Stable Prescriptions: New sodium chloride 3.5 % solution for nebulization 4 ml inhalation Q8H Qty: 240 0RF clopidogrel 75 mg Tablet 75 mg PO DAILY 30 Days Qty: 30 2RF lisinopril 5 mg Tablet 5 mg PO DAILY 30 Days Qty: 30 0RF metoprolol succinate 25 mg Tablet Extended Release 24 Hr 25 mg PO DAILY Qty: 30 0RF Eliquis 5 mg Tablet 5 mg PO BID@ Qty: 60 0RF Continued Eliquis 5 mg tablet 5 mg PO BID@ atorvastatin 20 mg tablet 20 mg PO BEDTIME alendronate [Fosamax] 70 mg tablet 70 mg PO Q7D Rx Instructions: ON SUNDAYS Jardiance 10 mg tablet 10 mg PO DAILY ascorbic acid (vitamin C) 500 mg capsule 500 mg PO BID Galzin 50 mg (zinc) capsule 50 mg PO DAILY Yupelri 175 mcg/3 mL solution for nebulization 175 mcg inhalation DAILY Qty: 90 3RF budesonide [Pulmicort] 0.25 mg/2 mL suspension for nebulization 0.5 mg inhalation BID Qty: 10 3RF arformoterol 15 mcg/2 mL solution for nebulization 2 ml inhalation BID 30 Days Qty: 120 4RF potassium chloride 20 mEq Tablet Extended Release 20 meq PO DAILY@07 glimepiride 2 mg tablet 0.5 mg PO QPM famotidine 20 mg tablet 20 mg PO DAILY tamsulosin 0.4 mg capsule 0.4 mg PO DAILY levalbuterol tartrate [Xopenex HFA] 45 mcg/actuation Hfa Aerosol Inhaler 1 puff INHALATION Q6H PRN (Reason: Shortness Of Breath) Qty: 0 calcium carbonate-vitamin D3 [Oyster Shell Calcium-Vit D3] 500 mg(1,250mg) -200 unit tablet 500 tab PO DAILY@07 roflumilast [Daliresp] 500 mcg Tablet 500 mcg PO DAILY@07 ropinirole 0.25 mg Tablet 0.25 mg PO BEDTIME Rx Instructions: if symptoms persist - may increase cholecalciferol (vitamin D3) 75 mcg (3,000 unit) tablet 25 mcg PO TID metoprolol succinate 25 mg tablet extended release 24 hr 25 mg PO DAILY Rx Instructions: take with 50 mg to equal 75 mg daily guaifenesin 400 mg Tablet 400 mg PO Q8H PRN (Reason: Congestion) Discontinued metoprolol succinate 50 mg tablet extended release 24 hr 50 mg PO DAILY Rx Instructions: take with 25 mg daily to equal 75 mg Discharge Orders: Discharge Order (Routine); Ordered 09/20/22 Ordered By: Wilfredo Spencer Other Ambulatory Orders: DME: Oxygen (Order) Location: None Selected Ordered By: El Reeves Referrals: Reagan Drew MD [Physician] - 09/23/22 8:30 am ([facility] [place] has scheduled a follow-up appointment for you with Dr. Drew on at 8:30. If you have any questions, please call [phone].) Luis Cordova CPNP [Primary Care Provider] - 09/26/22 9:00 am ([facility] had scheduled a follow-up appointment for you with Federico Cordova on 09/26/2022 at 9:00. If you have any questions, please call [phone].) Olga May FNP [Nurse Practitioner] - 09/26/22 9:30 am ([facility] [place] has scheduled a follow-up appoinment for you with Olga May on 09/26/2022 at 9:30. If you have any questions, renetta call [phone].) Patient Instructions: Metoprolol (By mouth) (Lopressor, Toprol XL), Lisinopril (By mouth) (Prinivil, Zestril), Clopidogrel (By mouth) (Plavix), Apixaban (By mouth) (Eliquis), Heart Failure (DC), COPD (Chronic Obstructive Pulmonary Disease) (DC), Community Acquired Pneumonia (DC), CHF Stoplight, COPD Stoplight, Opioid Safety, Post Angiogram Home Care Instructions, Pneumonia Stoplight Activity Restrictions/Additional Instructions: Continue chest vest 3 times daily. Nebulized with hypertonic 3.5% saline 3 times daily. Discharge Attestations Time Spent in Discharge Care*: greater than 30 min Specific Discharge Activities: educating patient, educating and/or supporting family/caregiver, discussing with pcp/other providers, documenting/other paperwork and evaluating patient/reviewing data Status at Discharge: Cognitive status at discharge: cognitively intact, Behavioral status at discharge: cooperative, Quality Metrics Clinical Quality Measures [ No reported AMI, CVA or VTE this stay] Coding Level of Care Code Acute Code for Chg Fwd Total time (in minutes) for Discharge: 42 Diagnoses Coronary artery disease I25.10 Cardiomyopathy I42.9 Labile blood pressure R09.89 Pre-syncope R55 Acute and chronic respiratory failure with hypoxia J96.21 Pneumonia J18.9 Diabetes 1.5, managed as type 2 E13.9 Atrial fibrillation I48.91 CHF (congestive heart failure) I50.9 COPD (chronic obstructive pulmonary disease) J44.9
--- NOTE | 2022-09-20 15:47 | PC.NURSE ---
discharge instructions given and explained to pt and cg.they both understanding .discharged via w/c to exit at 1515.cg to drive pt home
== END 2022-09-20 15:15 | disposition home health service (06) | DRG 981 ==
LOC: ER 21:15 → MEDSURG 21:40 → CSU 09-18 14:47
PROVIDERS: Emergency Medicine; Internal Medicine; Student in an Organized Health Care Education/Training Program; Admitting Provider Internal Medicine; Emergency Provider Physician Assistant; PCP Registered Nurse; Visit Provider Family Medicine
PROC: 027034Z Dilation of Coronary Artery, One Artery with Drug-eluting Intraluminal Device, Percutaneous Approach (ICD-10-PCS; principal; 2022-09-19)
PROC: 027034Z Dilation of Coronary Artery, One Artery with Drug-eluting Intraluminal Device, Percutaneous Approach (ICD-10-PCS; 2022-09-19)
DX: J18.9 Pneumonia, unspecified organism (principal); I50.21 Acute systolic (congestive) heart failure; J96.21 Acute and chronic respiratory failure with hypoxia; I13.0 Hypertensive heart and chronic kidney disease with heart failure and stage 1 through stage 4 chronic kidney disease, or unspecified chronic kidney disease; I50.32 Chronic diastolic (congestive) heart failure; I42.9 Cardiomyopathy, unspecified; J43.9 Emphysema, unspecified; N18.9 Chronic kidney disease, unspecified; E13.22 Other specified diabetes mellitus with diabetic chronic kidney disease; Z99.81 Dependence on supplemental oxygen; I48.0 Paroxysmal atrial fibrillation; E78.5 Hyperlipidemia, unspecified; I25.10 Atherosclerotic heart disease of native coronary artery without angina pectoris; I65.23 Occlusion and stenosis of bilateral carotid arteries; G47.33 Obstructive sleep apnea (adult) (pediatric); Z85.828 Personal history of other malignant neoplasm of skin; N40.0 Benign prostatic hyperplasia without lower urinary tract symptoms; I44.7 Left bundle-branch block, unspecified; I25.2 Old myocardial infarction; H10.10 Acute atopic conjunctivitis, unspecified eye; R55 Syncope and collapse; Z87.891 Personal history of nicotine dependence; J84.10 Pulmonary fibrosis, unspecified; G25.81 Restless legs syndrome; Z99.89 Dependence on other enabling machines and devices; Z86.16 Personal history of COVID-19; K21.9 Gastro-esophageal reflux disease without esophagitis; Z79.84 Long term (current) use of oral hypoglycemic drugs; Z79.01 Long term (current) use of anticoagulants
CPT/HCPCS: 36415; 36416; 70450; 71260; 78452; 80048; 80053; 80202; 82803; 82962; 83605; 83735; 83880; 84145; 84484; 85025; 85347; 85610; 85730; 86403; 87040; 87070; 87205; 87449; 87635; 87641; 93005; 93017; 93458; 93571; 93880; 94640; 94669; 94760; 96365; 96367; 96372; 96374; 99152; 99153; 99285; A9500; C1725; C1769; C1874; C1887; C1894; C8929; C9600; J0153; J1200; J1644; J1650; J1815; J2250; J2543; J2785; J3010; J3370; J3490; J7030; J7608; J7613; J7626; J7644; Q9956; Q9967

== ENCOUNTER → 2022-09-23 07:49 | Outpatient (BNVA) | payer OTHER, SELFPAY | PROVIDERS: PCP Registered Nurse; Visit Provider Internal Medicine Pulmonary Disease | DX: J43.2 Centrilobular emphysema (principal); R91.1 Solitary pulmonary nodule; I50.9 Heart failure, unspecified; I25.10 Atherosclerotic heart disease of native coronary artery without angina pectoris; Z87.891 Personal history of nicotine dependence; Z79.01 Long term (current) use of anticoagulants; Z99.81 Dependence on supplemental oxygen | CPT/HCPCS: 99214 ==

== ENCOUNTER 2022-10-09 06:58 | Outpatient (CLI) | payer OTHER, SELFPAY ==
--- NOTE | 2022-10-09 08:00 | USR_ITS ---
PROCEDURE INFORMATION: Exam: US Duplex Right Upper Extremity Arteries Exam date and time: 10/09/2022 7:39 AM Age: 77 years old Clinical indication: Pain; Arm, lower; Right; Prior surgery; Surgery date: <1 month; Surgery type: Post heart cath; Additional info: M79.601 - pain in right arm TECHNIQUE: Imaging protocol: Right Real-time ultrasound scan of the arteries of the right upper extremity with 2-D garcia scale, color Doppler flow and spectral waveform analysis. COMPARISON: [place] CV carotid duplex BI* [id number] 09/14/2022 6:48 PM FINDINGS: Right subclavian artery: No occlusion or significant stenosis. Normal waveform. Right axillary artery: No occlusion or significant stenosis. Normal waveform. Right brachial artery: No occlusion or significant stenosis. Normal waveform. Right radial artery: Decreased peak systolic velocities of the distal right radial artery are seen with maximal velocity of 33.5 cm/s. This is suggestive of distal stenosis. Reversal of flow is seen in the right perea arch, which may represent distal most radial artery occlusion. Right ulnar artery: No occlusion or significant stenosis. Normal waveform. US/[place] [id number] IMPRESSION: Decreased peak systolic velocities of the distal right radial artery with maximal velocity of 33.5 cm/s. This is suggestive of distal stenosis. Reversal of flow seen in the right perea arch, which may represent distal most radial artery occlusion.
== END 2022-10-09 06:59 | disposition home or self-care (01) ==
PROVIDERS: PCP Registered Nurse; Visit Provider Nurse Practitioner Family
DX: M79.601 Pain in right arm (principal)
CPT/HCPCS: 93931

== ENCOUNTER → 2022-10-16 14:30 | Outpatient (BNVA) | payer OTHER, SELFPAY | PROVIDERS: PCP Nurse Practitioner Family; Visit Provider Internal Medicine | DX: I25.10 Atherosclerotic heart disease of native coronary artery without angina pectoris (principal); Z01.818 Encounter for other preprocedural examination | CPT/HCPCS: 99214 ==

== ENCOUNTER 2022-12-19 10:50 | Emergency (ER) | payer OTHER, SELFPAY ==
[2022-12-19] VITALS (43 sets, daily range): BP systolic 112–182; BP diastolic 78–113; PULSE 54–110; RESP 14–37; TEMP 37.1; O2SAT 95–100; BMI 20.9
--- NOTE | 2022-12-19 11:13 | XR_ITS ---
WS: [id number] Chest 2 views, 12/19/2022 Clinical Data: right sided cp Comparison: Two-view chest, 09/11/2022 Findings: No nodules, masses or effusions are seen. The heart is normal. The pulmonary vascularity is not increased. No pneumonia or pneumothorax is seen. There is patchy opacity overlying the surface o f both diaphragms which shows fibrosis and scarring. These changes of been seen before. The diaphragm s are flattened. There are monitor leads on the chest wall. The aortic arch shows mild calcification. XR/XR chest 2V* [id number] Impression: 1. Patchy opacities over surface of both diaphragms unchanged. 2. Hyperinflation and atherosclerosis.
--- NOTE | 2022-12-19 11:15 | W.ED.CHESTPA ---
HPI - Chest Pain General: Chief Complaint: Chest Pain Stated Complaint: chest pain Time Seen by Provider: 12/19/22 11:01 Source: patient and family Mode of arrival: ambulatory Limitations: no limitations History of Present Illness: This patient presents to the emergency department today because he is concerned about persistent right-sided chest pain has been present anywhere from 4 to 6 weeks. States it feels achy at times and feels like it aches across his right anterior ribs. He was hospitalizedEnd august for COPD exacerbation and also apparently had an angiogram and a stent placed in his LAD at that time. And according to spouse he has been treated for pneumonia with 3 rounds of antibiotics since that hospitalization. He denies any current cough, history of injury, fevers, change in his other physical condition. He states he is not awakened at night by these pains or discomfort. He states is not ripping or tearing it just achy and always on the right side without any radiation. No one else is ill at home. He does have oxygen dependent COPD and wears oxygen continuously. He denies any change in his usual activities of daily living. He denies any nausea vomiting diarrhea dysuria history of kidney stones. He states that pain does not seem to change significantly with deep breaths or position. Not noted any previous skin rashes although last couple of days he has had a few little areas of redness in his right chest. Pertinent past history: coronary artery disease Associated symptoms: Reports no associated symptoms; Deny abdominal pain, fever(s), nausea, palpitations or vomiting Risk Factors: Coronary artery disease risk factors: smoking history Review of Systems Const: Denies: fever(s) or chills Eyes: Denies: change in vision ENMT: Denies: throat pain, odynophagia, nasal discharge or nasal congestion Card: Reports: chest pain and irregular heart rhythm (chronic A-fib); Denies: palpitations Resp: Denies: productive cough, non-productive cough, wheezing or stridor GI: Denies: abdominal pain, nausea, vomiting or diarrhea : Denies: flank pain, difficulty urinating, dysuria or urinary frequency Musc: Denies: neck pain, back pain, extremity pain or extremity swelling Skin/Breast: Reports: rash; Denies: skin tenderness Neuro: Denies: headache(s), numbness in extremities or weakness in extremities PFSH ED PFSH: Medical History Anticoagulation adequate Eliquis ASHD (arteriosclerotic heart disease) Atrial fibrillation BPH (benign prostatic hyperplasia) Carotid stenosis, bilateral CHF (congestive heart failure) CKD (chronic kidney disease) COPD (chronic obstructive pulmonary disease) COPD exacerbation Diabetes 1.5, managed as type 2 Diastolic CHF, acute on chronic Fracture of second metatarsal bone GERD (gastroesophageal reflux disease) Heart failure with preserved ejection fraction History of 2019 novel coronavirus disease (COVID-19) (~07/2020) History of echocardiogram (~11/2019) EF 50-55%, no valvular abnormalities, normal pulmonary pressures History of nonmelanoma skin cancer HTN (hypertension) Hyperlipidemia LBBB (left bundle branch block) On home oxygen therapy 4L MOSHE (obstructive sleep apnea) Bipap 09/03 Osteoporosis alendronate Pneumonia Pulmonary emphysema with fibrosis of lung RLS (restless legs syndrome) Ventricular ectopy Surgical History S/P carotid endarterectomy S/P carpal tunnel release S/P sinus surgery Family History Mother , AGE 64 Diabetes Cancer Father , AGE 62 CAD (coronary artery disease) Social History Smoking and tobacco status: former smoker Quit status (tobacco): has quit using tobacco Year quit tobacco: 1999 [id number] Second hand smoke exposure: No Smoking risk assessment/counseling performed?: Yes Alcohol intake: never Substance/Drug Use: never Lives independently: Yes Household members: spouse Housing: House Marital status: service: Yes branch: [employer] Current occupational status: retired Pets and animals: No Do you think of yourself as: Straight/Heterosexual Current gender identity: Male Physical Exam Narrative: EXAM NARRATIVE: Makes good eye contact, in good spirits, answers questions in a goal-directed fashion, appears to be comfortable and in no acute distress. Const: COMMON NORMALS: no acute distress, average body habitus and patient oriented x3 GENERAL APPEARANCE: cooperative and comfortable ORIENTATION/CONSCIOUSNESS: Yes awake HENMT: COMMON NORMALS: normocephalic, Normal nasal mucous membranes and turbinates present, moist oral mucous membranes and oropharynx normal HEAD & SCALP: normocephalic FACE & SINUS: normal facial exam NOSE: Normal nasal mucous membranes and turbinates present Eye: COMMON NORMALS: Equal, round and reactive pupils present, EOMs intact bilaterally and conjunctivae normal CONJUNCTIVA: Yes conjunctivae normal PUPIL: Yes Equal, round and reactive pupils present Neck/C-Spine: COMMON NORMALS: full ROM, no lymphadenopathy, supple, no JVD and Thyroid normal THYROID: Thyroid normal Chest: COMMONS NORMALS: normal inspection of the chest OTHER: Examination of chest reveals 3-4 very minute erythematous papules right anterior chest without any vesicles, crusting, other skin changes. Palpation of the anterior chest reveals minimal tenderness along the anterior ribs approximately 6 through 8. Tenderness does not extend laterally or posteriorly. There is no crepitance, subcutaneous emphysema, deformity. Rotation of the trunk does not reproduce symptoms. Resp: COMMON NORMALS: normal respiratory effort, No retractions, No use of accessory muscles and clear to auscultation bilaterally EFFORT & INSPECTION: Yes able to speak in complete sentences AUSCULTATION: clear to auscultation bilaterally Cardio: COMMON NORMALS: no JVD RHYTHM: abnormal rhythm irregularly irregular GI: COMMON NORMALS: Normal to inspection, nondistended, normoactive bowel sounds present, Soft to palpation, non-tender and no masses PALPATION: Yes Soft to palpation : COMMON NORMALS: Yes no CVA tenderness BLADDER/KIDNEY EXAM: Yes no CVA tenderness Back/Pelvis: COMMON NORMALS: no CVA tenderness, thoracic and lumbar spine normal to inspection, no thoracic nor lumbar tenderness, thoraco-lumbar ROM normal and straight leg raise negative bilaterally Extremity: COMMON NORMALS: normal to inspection, full ROM, capillary refill normal, no calf tenderness and no pedal edema Neuro: COMMON NORMALS: patient oriented x3, moves all extremities, no focal motor deficits and no sensory deficits noted CRANIAL NERVES: Yes CN normal except as noted Psych: COMMON NORMALS: mental status grossly normal Skin: COMMON NORMALS: no wounds, turgor normal, no jaundice and no petechiae GENERAL SKIN EXAM: turgor normal Course Reevaluation(s): Reevaluation #1: Patient remains clinically stable. No new or focal findings on reevaluation. I shared current findings with the patient. Serial troponins are unchanged and flat serial EKGs do not reveal any evidence of dynamic or ischemic changes. Other laboratories are reassuring as well. Chest x-ray shows some basilar scarring but no infiltrates etc. Prior and recent CT scan of the chest revealed no evidence that would suggest vascular pathology and his current presentation does not suggest such nor does it suggest thromboembolic event etc. The latter is particularly very very unlikely given him being on both antiplatelet and a factor X inhibitor. His current symptoms likely represent more musculoskeletal discomfort given his recent pneumonia. Certainly possible but less likely is this could represent zoster without any rash however his current characteristic of his discomfort is not consistent with usual lancinating type discomfort with that condition. No evidence to suggest other etiologies of his pain that would represent a emergency medical condition at this time. I discussed current findings and advised continued watching and observing at home for resolution. We also discussed return precautions to include return to this facility immediately should he develop progressive worsening pain, fever, difficulty breathing etc. He and his spouse were reassured that they were concerned about possible cardiac etiology but extremely unlikely at this presentation. Time: 14:25 Vital Signs: Vital signs: Vital Signs Temperature 98.7 F 12/19/22 10:57 Pulse Rate 77 12/19/22 14:10 Respiratory Rate 26 H 12/19/22 14:10 Blood Pressure 172/89 12/19/22 14:10 Pulse Oximetry 100 12/19/22 14:10 Oxygen Delivery Me thod Nasal Cannula 12/19/22 10:57 Oxygen Flow Rate 4 12/19/22 10:57 MDM - Chest Pain Medical Decision Making This patient recently admitted to the facility for pneumonia and subsequent revascularization of his LAD some weeks ago comes to the emergency department today because of soreness in intermittent achiness to his right lower chest for the past 4 to 6 weeks. No concomitant fevers, sustained chest pain, awakening from sleep or other worrisome symptoms noted. Clinical examination was reassuring. He did not have any stigmata that suggested serious illness with normal vital signs, excellent saturation consistent with his usual oxygen saturation on supplemental oxygen etc. He did have a area of some erythema of the skin in the in the location of discomfort with 2-3 small scattered papules no vesicles excoriations etc. Work-up ensued to ensure no evidence of ongoing ACS, pneumonia, other potential etiologies of his pain. Reassuring and unchanged EKGs were obtained, serial troponins, chest x-ray etc. were all reviewed and found to be reassuring. He does have scarring at the bases of both lungs consistent with his known chronic obstructive lung disease Clinically stable without evidence of ACS or other emergent conditions. Consideration although unlikely of zoster without rash of significant could be considered but more likely this is musculoskeletal related discomfort due to scarring and recovery from recent lower lobe pneumonia.. Medical Records I reviewed the patient's medical records. Chest CT from September 11 of this year revealed no evidence of aortic aneurysm and at that time no dissection or other great vessel pathology. Lab Data I reviewed the patient's lab results. 12/19/22 11:24 12/19/22 11:24 Radiology Impressions Chest X-Ray 12/19/22 11:13 Impression: 1. Patchy opacities over surface of both diaphragms unchanged. 2. Hyperinflation and atherosclerosis. Laboratory Results WBC 7.6 10^3/uL (4.0-10.0) 12/19/22 11:24 RBC 5.49 10^6/uL (4.1-5.3) H 12/19/22 11:24 Hgb 14.7 g/dL (11.7-16.6) 12/19/22 11:24 Hct 47.4 % (42.0-52.0) 12/19/22 11:24 MCV 86.3 fl (80-94) 12/19/22 11:24 MCH 26.8 pg (28.0-34.0) L 12/19/22 11:24 MCHC 31.0 g/dL (30.0-36.0) 12/19/22 11:24 RDW 15.3 % (12.1-15.1) H 12/19/22 11:24 Plt Count 163 10^3/cmm (130-400) 12/19/22 11:24 MPV 11.0 fL (7.4-10.4) H 12/19/22 11:24 Neut % (Auto) 52.5 % 12/19/22 11:24 Lymph % (Auto) 28.3 % 12/19/22 11:24 [place] % (Auto) 11.6 % 12/19/22 11:24 Eos % (Auto) 6.3 % 12/19/22 11:24 Baso % (Auto) 0.9 % 12/19/22 11:24 Neut # (Auto) 3.96 10^3/uL (1.8-7.7) 12/19/22 11:24 Lymph # (Auto) 2.1 10^3/uL (0.8-4.8) 12/19/22 11:24 [place] # (Auto) 0.9 10^3/uL (0.2-0.9) 12/19/22 11:24 Eos # (Auto) 0.5 10^3/uL (0.0-0.8) 12/19/22 11:24 Baso # (Auto) 0.1 10^3/uL (0.0-0.1) 12/19/22 11:24 Nucleated RBC % (auto) 0 % 12/19/22 11:24 Nucleated RBCs # 0.0 /100WBC 12/19/22 11:24 Sodium 137 mmol/L (136-145) 12/19/22 11:24 Potassium 4.4 mmol/L (3.5-5.1) 12/19/22 11:24 Chloride 98 mmol/L (98-107) 12/19/22 11:24 Carbon Dioxide 28 mmol/L (22-29) 12/19/22 11:24 Anion Gap 15.4 (5-19) 12/19/22 11:24 BUN 20 mg/dL (8-23) 12/19/22 11:24 Creatinine 0.9 mg/dL (0.7-1.2) 12/19/22 11:24 GFR Calculation Not Reportable 12/19/22 11:24 Glucose 146 mg/dL (65-115) H 12/19/22 11:24 Calculated Osmolality 289 mOsm/kg (285-295) 12/19/22 11:24 Calcium 9.8 mg/dL (8.5-10.5) 12/19/22 11:24 Total Bilirubin 0.3 mg/dL (0.15-1.2) 12/19/22 11:24 AST 20 U/L (0-40) 12/19/22 11:24 ALT 17 U/L (0-41) 12/19/22 11:24 Alkaline Phosphatase 125 U/L (40-130) 12/19/22 11:24 Troponin T Baseline 12 ng/L (0-15) 12/19/22 11:24 Troponin T 120 Minute 13.24 ng/L (0-15) 12/19/22 13:25 Total Protein 7.6 g/dL (6.6-8.7) 12/19/22 11:24 Albumin 3.9 g/dL (3.5-5.2) 12/19/22 11:24 Globulin 3.7 g/dL (1.3-4.6) 12/19/22 11:24 EKG Data EKG 1: I personally reviewed and interpreted this EKG as follows: Interpretation: Contemporaneous review of resting EKG reveals a ventricular rate of 81 bpm. NC interval, QRS duration, corrected QT interval normal. Left axis noted. Consistent with a left bundle branch block. Has frequent extrasystoles noted. No sustained arrhythmia. [place] rhythm unchanged from prior tracings available within the system. EKG 2: I personally reviewed and interpreted this EKG as follows: Interpretation: Contemporaneous review of second EKG this visit reveals a ventricular rate of 72 bpm. At this time consistent with sinus rhythm. Left bundle branch block unchanged without any concordant or just concordant ST changes. Discharge Plan Discharge Patient Disposition: Home Clinical Impression: COPD (chronic obstructive pulmonary disease), Chest pain, Atrial fibrillation Condition: Stable Prescriptions: No Action atorvastatin 20 mg tablet 40 mg PO BEDTIME alendronate [Fosamax] 70 mg tablet 70 mg PO Q7D Rx Instructions: ON SUNDAYS Jardiance 10 mg tablet 10 mg PO DAILY ascorbic acid (vitamin C) 500 mg capsule 500 mg PO BID Galzin 50 mg (zinc) capsule 50 mg PO DAILY furosemide [Lasix] 20 mg tablet 20 mg PO DAILY Yupelri 175 mcg/3 mL solution for nebulization 175 mcg inhalation DAILY Qty: 90 3RF budesonide [Pulmicort] 0.25 mg/2 mL suspension for nebulization 0.5 mg inhalation BID Qty: 10 3RF arformoterol 15 mcg/2 mL solution for nebulization 2 ml inhalation BID 30 Days Qty: 120 4RF potassium chloride 20 mEq Tablet Extended Release 20 meq PO DAILY@07 glimepiride 2 mg tablet 1 mg PO QPM famotidine 20 mg tablet 20 mg PO DAILY tamsulosin 0.4 mg capsule 0.4 mg PO DAILY levalbuterol tartrate [Xopenex HFA] 45 mcg/actuation Hfa Aerosol Inhaler 1 puff INHALATION Q6H PRN (Reason: Shortness Of Breath) Qty: 0 calcium carbonate-vitamin D3 [Oyster Shell Calcium-Vit D3] 500 mg(1,250mg) -200 unit tablet 500 tab PO DAILY@07 roflumilast [Daliresp] 500 mcg Tablet 500 mcg PO DAILY@07 ropinirole 0.25 mg Tablet 0.25 mg PO BEDTIME Rx Instructions: if symptoms persist - may increase cholecalciferol (vitamin D3) 75 mcg (3,000 unit) tablet 25 mcg PO TID clopidogrel 75 mg Tablet 75 mg PO DAILY 30 Days Qty: 30 2RF Eliquis 5 mg Tablet 5 mg PO BID@, Qty: 60 0RF metoprolol tartrate 100 mg Tablet 100 mg PO BID lisinopril 2.5 mg Tablet 2.5 mg PO DAILY sodium chloride 3 % solution for nebulization 4 ml inhalation .TWICE WEEKLY guaifenesin 400 mg Tablet 400 mg PO BID Discharge Orders: Discharge ED (Routine); Ordered 12/19/22 Ordered By: Stevan Walker Referrals: Dorie Nichols [employer] OPERATOR [Primary Care Provider] - 2 weeks Discharge Diet: Usual diet Discharge Activity: Resume usual activity Patient Instructions: Opioid Safety, Pain Management Activity Restrictions/Additional Instructions: As we discussed there was no evidence today while you are in the emergency department of any kind of heart attack, pneumonia or other acute conditions contributing to your discomfort. As we discussed this may be more related to the scarring of your diaphragm and the base of your lungs which is chronic in nature and also could be related to your recent pneumonia. Unlikely to be due to shingles but certainly a remote possibility. We recommend continued observation at home and if your pain worsens you develop other symptoms that we discussed or any concerns return to the emergency department immediately. Coding Level of Care Code ED Technical Marketing Consultant for Robert Garcia
[2022-12-19 11:39] LABS: Basophils # 0.1 10^3/uL (0.0-0.1); Basophils % 0.9 %; Eosinophils # 0.5 10^3/uL (0.0-0.8); Eosinophils % 6.3 %; Hematocrit 47.4 % (42.0-52.0); Hemoglobin 14.7 g/dL (11.7-16.6); Lymphocytes # 2.1 10^3/uL (0.8-4.8); Lymphocytes % 28.3 %; Mean Corpuscular Hemoglobin 26.8 pg (28.0-34.0); Mean Corpuscular Volume 86.3 fl (80-94); Monocytes # 0.9 10^3/uL (0.2-0.9); Monocytes % 11.6 %; Neutrophils # 3.96 10^3/uL (1.8-7.7); Neutrophils % 52.5 %; Nucleated Red Blood Cells % 0 %; Platelet Count 163 10^3/cmm (130-400); Red Blood Count 5.49 10^6/uL (4.1-5.3); Red Cell Distribution Width 15.3 % (12.1-15.1); White Blood Count 7.6 10^3/uL (4.0-10.0)
[2022-12-19 11:59] LABS: Alanine Aminotransferase 17 U/L (0-41); Albumin Level 3.9 g/dL (3.5-5.2); Alkaline Phosphatase 125 U/L (40-130); Anion Gap 15.4 (5-19); Aspartate Amino Transferase 20 U/L (0-40); Blood Urea Nitrogen 20 mg/dL (8-23); Calcium 9.8 mg/dL (8.5-10.5); Carbon Dioxide 28 mmol/L (22-29); Chloride 98 mmol/L (98-107); Creatinine Clr Calc Pharmacy 70.3846; Globulin 3.7 g/dL (1.3-4.6); Glucose 146 mg/dL (65-115); Osmolality Calculated 289 mOsm/kg (285-295); Potassium 4.4 mmol/L (3.5-5.1); Sodium 137 mmol/L (136-145); Total Bilirubin 0.3 mg/dL (0.15-1.2); Total Protein 7.6 g/dL (6.6-8.7)
[2022-12-19 12:00] LABS: Troponin(5th) Baseline 12 ng/L (0-15)
--- NOTE | 2022-12-19 12:12 | ECG_ITS ---
[facility] Test Date: 2022-12-19 Pat Name: Jonathan Sultana Department: Room: Gender: Male Sap Director: : 1945 Requested By: Stevan Walker Order Number: [id number] Blackburn MD: Lauren Spangler M.D. Measurements Intervals [place] Rate: 81 P: 61 [place]: 195 QRS: 54 QRSD: 131 T: 124 QT: 393 QTc: 458 Interpretive Statements SINUS RHYTHM WITH FREQUENT VENTRICULAR PREMATURE COMPLEXES LEFT BUNDLE BRANCH BLOCK [120+ ms QRS DURATION, 80+ ms Q/S IN V1/V2, 85+ ms R IN I/aVL/V5/V6] Compared to ECG 09/17/2022 13:56:35 No significant changes Electronically Signed On 12-19-2022 20:42:55 CDT by Lauren Spangler M.D. [id number]
--- NOTE | 2022-12-19 14:03 | ECG_ITS ---
[facility] Test Date: 2022-12-19 Pat Name: Jonathan Sultana Department: Room: Gender: Male Entertainment Manager: : 1945 Requested By: Stevan Walker Order Number: [id number] Blackburn MD: Lauren Spangler M.D. Measurements Intervals [place] Rate: 72 P: 69 [place]: 191 QRS: 22 QRSD: 135 T: 105 QT: 422 QTc: 463 Interpretive Statements SINUS RHYTHM LEFT BUNDLE BRANCH BLOCK [120+ ms QRS DURATION, 80+ ms Q/S IN V1/V2, 85+ ms R IN I/aVL/V5/V6] Compared to ECG 12/19/2022 12:12:32 Ventricular premature complex(es) no longer present Electronically Signed On 12-19-2022 21:24:31 CDT by Lauren Spangler M.D. [id number]
[2022-12-19 14:04] LABS: Troponin 5 2HR 13.24 ng/L (0-15)
[2022-12-19 14:27] LABS: Troponin 5 2HR Delta 1.24 ABS# (0-10)
== END 2022-12-19 14:42 | disposition home or self-care (01) ==
PROVIDERS: Emergency Provider Emergency Medicine; PCP Nurse Practitioner Family
DX: J44.9 Chronic obstructive pulmonary disease, unspecified (principal); R07.9 Chest pain, unspecified; I48.91 Unspecified atrial fibrillation; Z79.84 Long term (current) use of oral hypoglycemic drugs; Z79.02 Long term (current) use of antithrombotics/antiplatelets; Z87.891 Personal history of nicotine dependence; I13.0 Hypertensive heart and chronic kidney disease with heart failure and stage 1 through stage 4 chronic kidney disease, or unspecified chronic kidney disease; E11.22 Type 2 diabetes mellitus with diabetic chronic kidney disease; N18.9 Chronic kidney disease, unspecified; I50.9 Heart failure, unspecified; E78.5 Hyperlipidemia, unspecified; Z99.81 Dependence on supplemental oxygen
CPT/HCPCS: 36415; 71046; 80053; 84484; 85025; 93005; 99285

== ENCOUNTER → 2022-12-25 12:58 | Outpatient (BNVA) | payer OTHER, MEDICARE, SELFPAY | PROVIDERS: PCP Nurse Practitioner Family; Visit Provider Dermatology | DX: D23.61 Other benign neoplasm of skin of right upper limb, including shoulder (principal); L82.0 Inflamed seborrheic keratosis; Z85.828 Personal history of other malignant neoplasm of skin; L57.0 Actinic keratosis; L30.9 Dermatitis, unspecified; L81.4 Other melanin hyperpigmentation | CPT/HCPCS: 11102; 17000; 17003; 69100; 99214 ==

== ENCOUNTER 2022-12-26 06:04 | Outpatient (CLI) | payer MEDICARE, OTHER, SELFPAY ==
--- NOTE | 2022-12-26 | US_ITS ---
WS: [id number] RIGHT UPPER QUADRANT ULTRASOUND HISTORY: RUQ PAIN COMPARISON: 11/06/2018 Liver: 14.0 cm in length. Normal size liver and echogenicity. No bile duct dilatation or mass. Portal Vein: Normal hepatopetal flow with monophasic waveform. Gallbladder: Normally distended gallbladder with numerous stones. Several stones present in the gallb ladder neck. No wall thickening or pericholecystic fluid. CBD: 0.5 cm Pancreas: Normal size and echogenicity. Right kidney: 9.3 cm in length. Normal size and echogenicity. No hydronephrosis or mass. Aorta and IVC: Unremarkable abdominal aorta and IVC. No ascites. US/US gall bladder [id number] IMPRESSION: 1. Cholelithiasis. Numerous stones are present. Similar to the prior study fro 2018. Some of the stones are near the gallbladder neck which may relate to im paction. 2. No bile duct dilatation.
--- NOTE | 2022-12-26 06:39 | CT_ITS ---
WS: [id number] CT chest wo con [id number] HISTORY: R91.1 - Solitary pulmonary nodule TECHNIQUE: Axial imaging performed through the thorax. Coronal and sagittal reformats are submitted. All CT scans at [facility] use at least one of these dose optimization techniques: automated exposure control; mA and/or kV adjustment per patient size (includes targeted exams where dose is mat ched to clinical indication); or iterative reconstruction. CONTRAST: None DLP: 198.94 mGy.cm COMPARISON: 08/03/2020, 10/15/2020, 12/07/2021 and 09/11/2022 Lungs and central airway: Severe hyperexpansion with centrilobular emphysema. Biapical pleural thicke alexx. Spiculated nodule measuring 11 x 11 mm in the RIGHT apex is stable. The areas of consolidation and pleural thickening at the lung bases have moderately improved since the most recent study of 09/11. Less consolidation. There is still reticular interstitial thickening and mild nodularity prese nt. Pleura: Normal. No pleural effusion. Heart and pericardium: Normal size heart with no pericardial effusion. Mediastinum and elyse: No mediastinum or hilar adenopathy. Vessels: Moderate atherosclerotic plaque within the thoracic aorta. Normal size pulmonary artery. Mod erate coronary artery calcifications. Chest wall and lower neck: No soft tissue masses. Upper abdomen: Small hiatal hernia. No adrenal mass. Mild splenic artery calcification. Osseous structures: Mild increase in thoracic kyphosis. Degenerative disc disease. CT/CT chest wo con [id number] IMPRESSION: 1. Severe centrilobular emphysema. 2. Dense areas of consolidation at the lung bases seen on 09/11/2022 have moder ately improved. Less consolidation but there is still nodular reticular interst itial thickening. Continued CT imaging surveillance recommended, in particular to evaluate resolution of the nodular component of the consolidations. 3. Stable biapical pleural thickening and nodularity. 4. No adenopathy. 5. Normal size heart.
== END 2022-12-26 06:05 | disposition home or self-care (01) ==
PROVIDERS: PCP Nurse Practitioner Family; Visit Provider Nurse Practitioner Family
DX: R91.1 Solitary pulmonary nodule (principal); R10.11 Right upper quadrant pain; K80.20 Calculus of gallbladder without cholecystitis without obstruction; J43.2 Centrilobular emphysema; R91.8 Other nonspecific abnormal finding of lung field
CPT/HCPCS: 71250; 76705

== ENCOUNTER 2023-01-24 06:30 | Outpatient (CLI) | payer MEDICARE, OTHER, SELFPAY ==
--- NOTE | 2023-01-24 07:00 | US_ITS ---
WS: [id number] Complete ABDOMINAL ULTRASOUND HISTORY: R10.9 - Unspecified abdominal pain COMPARISON: CT 10/15/2020 and prior RIGHT upper quadrant ultrasound 12/26/2022. Liver: 15.3 cm in length. Normal size liver and echogenicity. No bile duct dilatation or mass. Portal Vein: Normal hepatopetal flow with monophasic waveform. Gallbladder: Normally distended gallbladder with several gallstones. No pericholecystic fluid. CBD: 0.3 cm Pancreas: Large portions of the pancreas are obscured. Right kidney: 10.3 cm x 4.9 x 4.6 cm. Cortex:1.3 cm. Normal size and echogenicity. No hydronephrosis or mass. Left kidney: 11.5 cm x 4.9 cm x 5.6 cm. Cortex: 1.2 cm. Normal size kidney. Several renal cysts are identified. The largest from the upper pole measures 2.6 x 2.1 cm. No solid mass. Spleen: 8.0 cm in length. Normal size. Soft tissue mass in the subcutaneous region of the LEFT lower abdomen measures 8.1 x 1.9 x 3.2 cm. Agustín rowe has a known lipoma that was previously noted also on the CT from 2020. Aorta and IVC: Unremarkable abdominal aorta and IVC. US/US abdomen complete* [id number] Impression: 1. Cholelithiasis without acute cholecystitis. 2. LEFT renal cysts. The largest with a maximum diameter of 2.6 cm. 3. Negative liver. 4. LEFT lower quadrant subcutaneous lipoma, chronic in appearance and similar to 202.
== END 2023-01-24 06:31 | disposition home or self-care (01) ==
PROVIDERS: PCP Nurse Practitioner Family; Visit Provider Internal Medicine Pulmonary Disease
DX: D17.1 Benign lipomatous neoplasm of skin and subcutaneous tissue of trunk (principal); R10.9 Unspecified abdominal pain; K80.20 Calculus of gallbladder without cholecystitis without obstruction; Q61.02 Congenital multiple renal cysts
CPT/HCPCS: 76700

== ENCOUNTER 2023-02-15 06:35 | Outpatient (CLI) | payer MEDICARE, OTHER, SELFPAY ==
--- NOTE | 2023-02-15 | PETR_ITS ---
PROCEDURE INFORMATION: Exam: PET/CT Skull Base to Mid-thigh Exam date and time: 02/15/2023 10:51 AM Age: 77 years old Clinical indication: Condition or disease; Condition/disease: Interstitial lung disease LABS AND CLINICAL REPORTS: Glucose: 109 mg/dl Treatment strategy for malignancy (PET staging): Initial Staging (PI) TECHNIQUE: Imaging protocol: Following at least four-hour fasting and following the injection of radiopharmaceutical, low dose CT images were obtained. Then, PET images were obtained. Attenuation corrected images were constructed using the CT scan. Fused images of PET and CT were reviewed. The standardized uptake values (SUV) reported below are maximum values within a region of interest, expressed in gm/ml. Exam includes orbital meatal line to mid-thigh. Radiopharmaceutical: 12.29 mCi F-18 FDG (Fluorodeoxyglucose), IV. Time of imaging post radiopharmaceutical administration: 1 hour Injection site: Not specified COMPARISON: CT chest 12/26/2022, PT PET Scan 12/16/2020 11:26 AM FINDINGS: Brain: Visualized brain has normal physiologic uptake. Pharynx: No abnormal uptake. Larynx: No abnormal uptake. Lungs, pleura and trachea: Biapical bandlike areas of pleural based streaky and nodular density in the lung apices are not radiotracer avid, for example in the right lung apex with an SUV max 1.6 on series 3, image 39 (previous SUV max 1.6). These regions appears similar compared with at least the prior PET-CT of 12/16/2020. Moderate to severe bilateral centrilobular emphysematous changes. Dependent mild streaky and patchy density in the lower lobes demonstrates new low-level activity which is greatest on the left, SUV max 3.9. This appearance is similar compared with 12/26/2022 and appears slightly more prominent than on the prior PET-CT. Heart: Normal physiologic uptake. Mediastinal space: No abnormal uptake. Liver: No abnormal uptake. Gallbladder and bile ducts: Stones in the gallbladder are noted. No abnormal uptake. Pancreas: No abnormal uptake. Spleen: No abnormal uptake. Adrenal glands: No abnormal uptake. Kidneys and ureters: A 2.3 x 2.2 cm low-density lesion arising from the posterior mid left kidney is not radiotracer avid with CT features compatible with a benign cyst. Stomach and bowel: No abnormal uptake. Urinary bladder: There is a multilobulated appearance of the urinary bladder wall which is mildly thickened. No definite abnormal uptake. Reproductive: The prostate gland is moderately prominent and contains punctate calcifications, without elevated uptake. There are bilateral scrotal surgical clips. Vasculature: No abnormal uptake. Diffuse atherosclerotic changes are noted including within the coronary arteries. Lymph nodes: A similar in size lymph node anterior to the common carotid artery in the superior thorax measuring 7 mm in diameter on series 3, image 38 demonstrates mild uptake, SUV max 2.8 (previously 2.3). Bones/joints: There is mild to moderate diffuse vertebral body spondylosis. Soft tissues: No abnormal uptake in the visualized head, neck, chest, abdomen, pelvis, and extremities. There is a similar in size non radiotracer avid fat density lesion in the oblique musculature of the left flank region measuring 4.0 x 1.6 cm on series 3, image 106 without elevated uptake. METRICS: Mediastinal blood pool: SUV max 2.5 PET[facility] [id number] IMPRESSION: 1. Similar bandlike areas of streaky and nodular density in the apices without significant uptake, likely related to scarring. 2. Bilateral lower lobe patchy density is similar compared with 12/26/2022 and appears increased since the prior PET-CT with new left greater than right lower lobe low-level activity (SUV max 3.9). Although neoplastic involvement cannot be entirely excluded, infectious or inflammatory uptake may alternatively account for this appearance. 3. Mild uptake has slightly increased within a non pathologically enlarged lymph node and the right superior chest anterior to the common carotid artery (SUV max 2.8, previously 2.3). This may be reactive, secondary to infectious or inflammatory involvement. Neoplastic involvement is a less likely consideration. 4. Similar size of a fat density lesion in the oblique musculature of the left flank without elevated uptake, likely related to a benign lipoma. 5. Similar lobulated appearance of the urinary bladder wall likely related to chronic sequela of outlet obstruction associated with prominence of the prostate gland. 6. Additional nonurgent findings as detailed above.
== END 2023-02-15 06:36 | disposition home or self-care (01) ==
LOC: RAD 02-17 06:35
PROVIDERS: PCP Nurse Practitioner Family; Visit Provider Nurse Practitioner Family
DX: J84.9 Interstitial pulmonary disease, unspecified (principal); R91.8 Other nonspecific abnormal finding of lung field; R59.0 Localized enlarged lymph nodes
CPT/HCPCS: 78815; A9552

== ENCOUNTER 2023-04-06 11:56 | Emergency (ER) | payer OTHER, SELFPAY ==
[2023-04-06 12:00] VITALS: BP 180/86; PULSE 104; RESP 20; TEMP 36.3; O2SAT 95; BMI 20.5
--- NOTE | 2023-04-06 12:01 | ECG_ITS ---
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 Measurements Intervals [place] Rate: 98 P: 75 MS: 181 QRS: 70 QRSD: 135 T: 186 QT: 353 QTc: 452 Interpretive Statements SINUS RHYTHM WITH FREQUENT VENTRICULAR PREMATURE COMPLEXES LEFT BUNDLE BRANCH BLOCK [120+ ms QRS DURATION, 80+ ms Q/S IN V1/V2, 85+ ms R IN I/aVL/V5/V6] Compared to ECG 12/19/2022 14:03:17 Ventricular premature complex(es) now present Electronically Signed On 04-06-2023 17:23:03 CDT by Julio Cesar Garcia M.D. [id number]
--- NOTE | 2023-04-06 12:01 | XRR_ITS ---
PROCEDURE INFORMATION: Exam: XR Chest Exam date and time: 04/06/2023 12:22 PM Age: 77 years old Clinical indication: Shortness of breath; Chest wall pain; Additional info: Cp.No history of trauma or recent surgery is provided. TECHNIQUE: Imaging protocol: Radiologic exam of the chest. 2image(s) are provided. Views: 1 view. COMPARISON: 1. CT chest wo con [id number] 12/26/2022 6:41 AM. PET-CT report of 02/15/2023. 2. CR XR chest 2V* [id number] 12/19/2022 11:29 AM FINDINGS: Lungs: There is chronic air trapping as well as scarring type appearance similar overall including about the apices and lung bases.No lobar consolidation is appreciated. Pleural spaces: No pneumothorax or significant pleural effusion is appreciated. Heart/Mediastinum: The cardiomediastinal silhouette is upper normal in size.This can be seen with central averaging as well as hawk enlargement.No cardiac decompensation is appreciated. Diaphragm: The hemidiaphragms are symmetric. Bones/joints: Osseous alignment is maintained.No interval displaced fracture or dislocation is appreciated.There is slightly decreased bone mineralization overall. Soft tissues: No radiopaque foreign body or subcutaneous emphysema is appreciated. Other findings: No significant interval changes are appreciated. XR/XR chest 1V portable [id number] IMPRESSION: There are chronic air trapping and scarring appearing changes similar overall bilaterally with no lobar consolidation or cardiac decompensation appreciated.No significant change of parenchymal aeration is appreciated.
--- NOTE | 2023-04-06 12:25 | ED_ITS ---
HPI - SOB/Dyspnea General: Chief Complaint: Shortness of Breath/Dyspnea Stated Complaint: sob, high bp, high heart rate Time Seen by Provider: 04/06/23 12:01 Source: patient Mode of arrival: ambulatory Limitations: no limitations History of Present Illness: HPI Narrative: 77-year-old male with a history of COPD is on 4 L oxygen at baseline states over the last week he is had some increasing dyspnea he states had a slight cough as well. He states that this morning he is having high blood pressure that concerned him he denies any chest pain he does have some right-sided pain but he does have shingles over that area currently and is on acyclovir. Denies any fever or vomiting Associated symptoms: Deny abdominal pain, chest pain, fever(s), nausea or vomiting Review of Systems Const: Denies: fever(s), chills, body aches or change in appetite Eyes: Denies: eye discomfort ENMT: Denies: throat pain or dental pain Card: Denies: chest pain Resp: Reports: dyspnea GI: Denies: abdominal pain, nausea, vomiting or diarrhea Musc: Denies: neck pain or back pain Skin/Breast: Reports: rash Neuro: Denies: headache(s) PFSH ED PFSH: Medical History Anticoagulation adequate Eliquis ASHD (arteriosclerotic heart disease) Atrial fibrillation BPH (benign prostatic hyperplasia) Carotid stenosis, bilateral CHF (congestive heart failure) CKD (chronic kidney disease) COPD (chronic obstructive pulmonary disease) COPD exacerbation Diabetes 1.5, managed as type 2 Diastolic CHF, acute on chronic Fracture of second metatarsal bone GERD (gastroesophageal reflux disease) Heart failure with preserved ejection fraction History of 2019 novel coronavirus disease (COVID-19) (~07/2020) History of echocardiogram (~11/2019) EF 50-55%, no valvular abnormalities, normal pulmonary pressures History of nonmelanoma skin cancer HTN (hypertension) Hyperlipidemia LBBB (left bundle branch block) On home oxygen therapy 4L MOSHE (obstructive sleep apnea) Bipap 09/03 Osteoporosis alendronate Pneumonia Pulmonary emphysema with fibrosis of lung RLS (restless legs syndrome) Ventricular ectopy Surgical History S/P carotid endarterectomy S/P carpal tunnel release S/P sinus surgery Family History Mother , AGE 64 Diabetes Cancer Father , AGE 62 CAD (coronary artery disease) Social History Smoking and tobacco status: former smoker Quit status (tobacco): has quit using tobacco Year quit tobacco: 1999 [id number] Second hand smoke exposure: No Smoking risk assessment/counseling performed?: Yes Alcohol intake: never Substance/Drug Use: never Lives independently: Yes Household members: spouse Housing: House Marital status: service: Yes branch: [employer] Current occupational status: retired Pets and animals: No Do you think of yourself as: Straight/Heterosexual Current gender identity: Male Physical Exam Const: COMMON NORMALS: no acute distress, patient oriented x3 and healthy appearing HENMT: COMMON NORMALS: normocephalic and atraumatic HEAD & SCALP: normocephalic and atraumatic Eye: COMMON NORMALS: Equal, round and reactive pupils present and EOMs intact bilaterally PUPIL: Yes Equal, round and reactive pupils present Neck/C-Spine: COMMON NORMALS: full ROM and supple Chest: COMMONS NORMALS: normal inspection of the chest and normal palpation of entire chest wall Resp: COMMON NORMALS: normal respiratory effort, No retractions and No use of accessory muscles AUSCULTATION: wheezes Cardio: COMMON NORMALS: regular rate, regular rhythm and No murmurs present (Cardio) RATE: regular rate RHYTHM: regular rhythm GI: COMMON NORMALS: Normal to inspection, nondistended, normoactive bowel sounds present, Soft to palpation, non-tender and no masses PALPATION: Yes Soft to palpation Extremity: COMMON NORMALS: normal to inspection and full ROM Neuro: COMMON NORMALS: patient oriented x3, moves all extremities and no focal motor deficits Psych: COMMON NORMALS: mental status grossly normal, Normal thought process present and cooperative THOUGHT PROCESS: Normal thought process present Skin: COMMON NORMALS: no wounds NARRATIVE SKIN EXAM: shingles to right back Course Vital Signs: Vital signs: Vital Signs Temperature 97.4 F L 04/06/23 12:00 Pulse Rate 64 04/06/23 13:52 Respiratory Rate 16 04/06/23 12:53 Blood Pressure 163/83 04/06/23 13:52 Pulse Oximetry 98 04/06/23 13:52 Oxygen Delivery Me thod Nasal Cannula 04/06/23 13:52 Oxygen Flow Rate 4 04/06/23 13:52 MDM - SOB/Dyspnea Medical Decision Making Patient presents here with dyspnea likely COPD he is much improved here with steroids and breathing treatment x-ray showed no pneumonia blood works normal he is stable for discharge she is to follow-up with PCP and return if worsening. Medical Records I reviewed the patient's medical records. Lab Data I reviewed the patient's lab results. 04/06/23 12:18 04/06/23 12:18 Labs/Radiology: Radiology Impressions Chest X-Ray 04/06/23 12:01 IMPRESSION: There are chronic air trapping and scarring appearing changes similar overall bilaterally with no lobar consolidation or cardiac decompensation appreciated.No significant change of parenchymal aeration is appreciated. Laboratory Results WBC 12.91 10^3/uL (3.29-11.43) H 04/06/23 12:18 RBC 5.04 10^6/uL (3.85-5.65) 04/06/23 12:18 Hgb 13.90 g/dL (11.27-16.99) 04/06/23 12:18 Hct 43.6 % (37-53) 04/06/23 12:18 MCV 86.5 fl (82-101) 04/06/23 12:18 MCH 27.6 pg (27-33) 04/06/23 12:18 MCHC 31.9 g/dL (30-55) 04/06/23 12:18 RDW 15.9 % (12.1-15.1) H 04/06/23 12:18 Plt Count 184 10^3/cmm (157-399) 04/06/23 12:18 MPV 11.0 fL (7.4-10.4) H 04/06/23 12:18 Neut % (Auto) 72.4 % 04/06/23 12:18 Lymph % (Auto) 14.9 % 04/06/23 12:18 [place] % (Auto) 11.0 % 04/06/23 12:18 Eos % (Auto) 0.5 % 04/06/23 12:18 Baso % (Auto) 0.7 % 04/06/23 12:18 Neut # (Auto) 9.35 10^3/uL (1.8-7.7) H 04/06/23 12:18 Lymph # (Auto) 1.9 10^3/uL (0.8-4.8) 04/06/23 12:18 [place] # (Auto) 1.4 10^3/uL (0.2-0.9) H 04/06/23 12:18 Eos # (Auto) 0.1 10^3/uL (0.0-0.8) 04/06/23 12:18 Baso # (Auto) 0.1 10^3/uL (0.0-0.1) 04/06/23 12:18 Nucleated RBC % (auto) 0 % 04/06/23 12:18 Nucleated RBCs # 0.0 /100WBC 04/06/23 12:18 PT 14.60 SECONDS (12.1-14.9) 04/06/23 12:18 INR 1.11 (0.8-1.2) 04/06/23 12:18 Sodium 139 mmol/L (136-145) 04/06/23 12:18 Potassium 4.4 mmol/L (3.5-5.1) 04/06/23 12:18 Chloride 101 mmol/L (98-107) 04/06/23 12:18 Carbon Dioxide 27 mmol/L (22-29) 04/06/23 12:18 Anion Gap 15.4 (5-19) 04/06/23 12:18 BUN 21 mg/dL (8-23) 04/06/23 12:18 Creatinine 0.9 mg/dL (0.7-1.2) 04/06/23 12:18 GFR Calculation Not Reportable 04/06/23 12:18 Glucose 136 mg/dL (65-115) H 04/06/23 12:18 Calculated Osmolality 293 mOsm/kg (285-295) 04/06/23 12:18 Calcium 9.3 mg/dL (8.5-10.5) 04/06/23 12:18 Total Bilirubin 0.2 mg/dL (0.15-1.2) 04/06/23 12:18 AST 20 U/L (0-40) 04/06/23 12:18 ALT 22 U/L (0-41) 04/06/23 12:18 Alkaline Phosphatase 113 U/L (40-130) 04/06/23 12:18 Troponin T Baseline 16 ng/L (0-15) H 04/06/23 12:18 Troponin T 120 Minute 19.50 ng/L (0-15) H 04/06/23 14:15 Delta Troponin T 3.50 ABS# (0-10) 04/06/23 14:15 NT-Pro-B Natriuret Pep 339 pg/mL (0-450) 04/06/23 12:18 Total Protein 6.8 g/dL (6.6-8.7) 04/06/23 12:18 Albumin 4.1 g/dL (3.5-5.2) 04/06/23 12:18 Globulin 2.7 g/dL (1.3-4.6) 04/06/23 12:18 EKG Data EKG 1: I personally reviewed and interpreted this EKG as follows: EKG Interpretation Date: 04/06/23 EKG interpretation time: 13:07 Interpretation: nsr hr [address] elevation unchanged from previous qrs 135 qtc 409 Discharge Plan Discharge Patient Disposition: Home Clinical Impression: Acute exacerbation of chronic obstructive airways disease, Hypertension Condition: Stable Prescriptions: No Action atorvastatin 20 mg tablet 40 mg PO BEDTIME alendronate [Fosamax] 70 mg tablet 70 mg PO Q7D Rx Instructions: ON SUNDAYS Jardiance 10 mg tablet 10 mg PO DAILY ascorbic acid (vitamin C) 500 mg capsule 500 mg PO BID Galzin 50 mg (zinc) capsule 50 mg PO DAILY furosemide [Lasix] 20 mg tablet 20 mg PO DAILY Yupelri 175 mcg/3 mL solution for nebulization 175 mcg inhalation DAILY Qty: 90 3RF budesonide [Pulmicort] 0.25 mg/2 mL suspension for nebulization 0.5 mg inhalation BID Qty: 10 3RF arformoterol 15 mcg/2 mL solution for nebulization 2 ml inhalation BID 30 Days Qty: 120 4RF potassium chloride 20 mEq Tablet Extended Release 20 meq PO DAILY@07 famotidine 20 mg tablet 20 mg PO DAILY tamsulosin 0.4 mg capsule 0.4 mg PO DAILY levalbuterol tartrate [Xopenex HFA] 45 mcg/actuation Hfa Aerosol Inhaler 1 puff INHALATION Q6H PRN (Reason: Shortness Of Breath) Qty: 0 calcium carbonate-vitamin D3 [Oyster Shell Calcium-Vit D3] 500 mg(1,250mg) - 200 unit tablet 500 tab PO DAILY@07 roflumilast [Daliresp] 500 mcg Tablet 500 mcg PO DAILY@07 ropinirole 0.25 mg Tablet 0.25 mg PO BEDTIME Rx Instructions: if symptoms persist - may increase cholecalciferol (vitamin D3) 75 mcg (3,000 unit) tablet 25 mcg PO TID clopidogrel 75 mg Tablet 75 mg PO DAILY 30 Days Qty: 30 2RF Eliquis 5 mg Tablet 5 mg PO BID@07, Qty: 60 0RF lisinopril 2.5 mg Tablet 2.5 mg PO DAILY sodium chloride 3 % solution for nebulization 4 ml inhalation .TWICE WEEKLY glimepiride 1 mg Tablet 1 mg PO QPM metoprolol succinate 25 mg tablet extended release 24 hr 25 mg PO DAILY triamcinolone acetonide 0.1 % cream 1 applic TOPICAL BID acyclovir 800 mg tablet 800 mg PO 5XD guaifenesin 400 mg Tablet 400 mg PO BID Discharge Orders: Discharge ED (Routine); Ordered 04/06/23 Ordered By: Milka Perdomo Referrals: Dorie Nichlos NP [Primary Care Provider] - 1-3 days Discharge Diet: Advance as tolerated Discharge Activity: Resume usual activity Patient Instructions: COPD (Chronic Obstructive Pulmonary Disease) (ED), Hypertension (ED) Coding Level of Care Code ED 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
[2023-04-06] MEDS: dexamethasone 10 mg/mL INJ IVP (12:36)
[2023-04-06] MEDS: labetalol 5 mg/mL SDV 20mL 10 MG IVP (12:37)
[2023-04-06 12:42] LABS: Basophils # 0.1 10^3/uL (0.0-0.1); Basophils % 0.7 %; Eosinophils # 0.1 10^3/uL (0.0-0.8); Eosinophils % 0.5 %; Hematocrit 43.6 % (37-53); Lymphocytes # 1.9 10^3/uL (0.8-4.8); Lymphocytes % 14.9 %; Mean Corpuscular HGB Conc 31.9 g/dL (30-55); Mean Corpuscular Hemoglobin 27.6 pg (27-33); Mean Corpuscular Volume 86.5 fl (82-101); Monocytes # 1.4 10^3/uL (0.2-0.9); Neutrophils # 9.35 10^3/uL (1.8-7.7); Neutrophils % 72.4 %; Nucleated Red Blood Cells % 0 %; Platelet Count 184 10^3/cmm (157-399); Red Blood Count 5.04 10^6/uL (3.85-5.65); Red Cell Distribution Width 15.9 % (12.1-15.1); White Blood Count 12.91 10^3/uL (3.29-11.43)
[2023-04-06 12:43] LABS: INR 1.11 (0.8-1.2)
[2023-04-06 12:53] VITALS: PULSE 67; RESP 16; O2SAT 99
[2023-04-06] MEDS: ipratropium-albuterol 3 mL Neb INHALATION (12:53)
[2023-04-06 12:54] LABS: Troponin(5th) Baseline 16 ng/L (0-15)
[2023-04-06 12:56] VITALS: PULSE 64
[2023-04-06 13:01] LABS: Alanine Aminotransferase 22 U/L (0-41); Albumin Level 4.1 g/dL (3.5-5.2); Alkaline Phosphatase 113 U/L (40-130); Anion Gap 15.4 (5-19); Aspartate Amino Transferase 20 U/L (0-40); Blood Urea Nitrogen 21 mg/dL (8-23); Calcium 9.3 mg/dL (8.5-10.5); Carbon Dioxide 27 mmol/L (22-29); Chloride 101 mmol/L (98-107); Globulin 2.7 g/dL (1.3-4.6); Glucose 136 mg/dL (65-115); NT Pro B Type Natriuretic Pept 339 pg/mL (0-450); Osmolality Calculated 293 mOsm/kg (285-295); Potassium 4.4 mmol/L (3.5-5.1); Sodium 139 mmol/L (136-145); Total Bilirubin 0.2 mg/dL (0.15-1.2); Total Protein 6.8 g/dL (6.6-8.7)
[2023-04-06 13:52] VITALS: BP 163/83; PULSE 64; O2SAT 98
--- NOTE | 2023-04-06 14:01 | ECG_ITS ---
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 Measurements Intervals [place] Rate: 60 P: 70 [place]: 195 QRS: 64 QRSD: 144 T: 107 QT: 449 QTc: 450 Interpretive Statements SINUS RHYTHM LEFT BUNDLE BRANCH BLOCK [120+ ms QRS DURATION, 80+ ms Q/S IN V1/V2, 85+ ms R IN I/aVL/V5/V6] Compared to ECG 04/06/2023 12:07:02 Ventricular premature complex(es) no longer present Electronically Signed On 04-06-2023 17:23:21 CDT by Julio Cesar Garcia M.D. [id number]
[2023-04-06] MEDS: hyDRALAzine 20 mg/mL INJ 1 mL 10 MG IVP (15:22)
[2023-04-06 16:00] VITALS: BP 172/78; PULSE 71; O2SAT 97
== END 2023-04-06 16:00 | disposition home or self-care (01) ==
PROVIDERS: Emergency Provider Emergency Medicine; PCP Nurse Practitioner Family
DX: J44.1 Chronic obstructive pulmonary disease with (acute) exacerbation (principal); Z99.81 Dependence on supplemental oxygen; Z87.891 Personal history of nicotine dependence; I13.0 Hypertensive heart and chronic kidney disease with heart failure and stage 1 through stage 4 chronic kidney disease, or unspecified chronic kidney disease; N18.9 Chronic kidney disease, unspecified; I50.32 Chronic diastolic (congestive) heart failure; I44.7 Left bundle-branch block, unspecified
CPT/HCPCS: 36415; 71045; 80053; 83880; 84484; 85025; 85610; 93005; 94640; 96374; 96375; 99285; J0360; J1100; J3490

== ENCOUNTER 2023-04-11 12:42 | Emergency (ER) | payer OTHER, SELFPAY ==
[2023-04-11 12:44] VITALS: BP 140/99; PULSE 104; RESP 18; TEMP 36.8; O2SAT 98; BMI 20.2
--- NOTE | 2023-04-11 12:49 | ECG_ITS ---
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 Measurements Intervals [place] Rate: 76 P: 78 OR: 175 QRS: 40 QRSD: 137 T: 96 QT: 396 QTc: 448 Interpretive Statements SINUS RHYTHM WITH OCCASIONAL VENTRICULAR PREMATURE COMPLEXES LEFT BUNDLE BRANCH BLOCK [120+ ms QRS DURATION, 80+ ms Q/S IN V1/V2, 85+ ms R IN I/aVL/V5/V6] Compared to ECG 04/06/2023 13:55:54 Ventricular premature complex(es) now present Electronically Signed On 04-11-2023 18:53:27 CDT by Lauren Spangler M.D. [id number]
--- NOTE | 2023-04-11 12:52 | W.ED.ARRPALP ---
HPI - Arrhythmia/Palpitations General: Chief Complaint: Arrhythmia/Palpitations Stated Complaint: afib wiht rvr Time Seen by Provider: 04/11/23 12:43 Source: patient and EMS Mode of arrival: EMS Limitations: no limitations History of Present Illness: 77-year-old male has a history of A-fib along with COPD states he is seeing his PCP today just for a checkup states that when he got here at this PCP office he was in A-fib with RVR heart rate in the 140s PCP had called the ambulance to bring him here. He has no complaints states has been feeling well he has had no recent dyspnea or cough. He denies chest pain denies palpitations heart rates currently in the 80s he has known A-fib is on Eliquis. Associated symptoms: Deny nausea or vomiting Review of Systems Const: Denies: fever(s), chills, body aches or change in appetite ENMT: Denies: throat pain or dental pain Card: Denies: chest pain Resp: Denies: dyspnea GI: Denies: abdominal pain, nausea, vomiting or diarrhea Musc: Denies: neck pain or back pain Skin/Breast: Denies: rash Neuro: Denies: headache(s) PFSH ED PFSH: Medical History Anticoagulation adequate Eliquis ASHD (arteriosclerotic heart disease) Atrial fibrillation BPH (benign prostatic hyperplasia) Carotid stenosis, bilateral CHF (congestive heart failure) CKD (chronic kidney disease) COPD (chronic obstructive pulmonary disease) COPD exacerbation Diabetes 1.5, managed as type 2 Diastolic CHF, acute on chronic Fracture of second metatarsal bone GERD (gastroesophageal reflux disease) Heart failure with preserved ejection fraction History of 2019 novel coronavirus disease (COVID-19) (~07/2020) History of echocardiogram (~11/2019) EF 50-55%, no valvular abnormalities, normal pulmonary pressures History of nonmelanoma skin cancer HTN (hypertension) Hyperlipidemia LBBB (left bundle branch block) On home oxygen therapy 4L MOSHE (obstructive sleep apnea) Bipap 09/03 Osteoporosis alendronate Pneumonia Pulmonary emphysema with fibrosis of lung RLS (restless legs syndrome) Ventricular ectopy Surgical History S/P carotid endarterectomy S/P carpal tunnel release S/P sinus surgery Family History Mother , AGE 64 Diabetes Cancer Father , AGE 62 CAD (coronary artery disease) Social History Smoking and tobacco status: former smoker Quit status (tobacco): has quit using tobacco Year quit tobacco: 1999 [id number] Second hand smoke exposure: No Smoking risk assessment/counseling performed?: Yes Alcohol intake: never Substance/Drug Use: never Lives independently: Yes Household members: spouse Housing: House Marital status: service: Yes branch: [employer] Current occupational status: retired Pets and animals: No Do you think of yourself as: Straight/Heterosexual Current gender identity: Male Physical Exam Const: COMMON NORMALS: no acute distress, patient oriented x3 and healthy appearing HENMT: COMMON NORMALS: normocephalic and atraumatic HEAD & SCALP: normocephalic and atraumatic Neck/C-Spine: COMMON NORMALS: full ROM and supple Chest: COMMONS NORMALS: normal inspection of the chest and normal palpation of entire chest wall Resp: COMMON NORMALS: normal respiratory effort, No retractions, No use of accessory muscles and clear to auscultation bilaterally AUSCULTATION: clear to auscultation bilaterally Cardio: COMMON NORMALS: regular rate and No murmurs present (Cardio) RATE: regular rate RHYTHM: abnormal rhythm irregularly irregular GI: COMMON NORMALS: Normal to inspection, nondistended, normoactive bowel sounds present, Soft to palpation, non-tender and no masses PALPATION: Yes Soft to palpation Extremity: COMMON NORMALS: normal to inspection and full ROM Neuro: COMMON NORMALS: patient oriented x3, moves all extremities and no focal motor deficits Psych: COMMON NORMALS: mental status grossly normal, Normal thought process present and cooperative THOUGHT PROCESS: Normal thought process present Skin: COMMON NORMALS: no rashes or lesions noted and no wounds GENERAL SKIN EXAM: no rashes or lesions noted Course Vital Signs: Vital signs: Vital Signs Temperature 98.3 F 04/11/23 12:44 Pulse Rate 73 04/11/23 13:39 Respiratory Rate 18 04/11/23 13:39 Blood Pressure 159/102 04/11/23 13:39 Pulse Oximetry 97 04/11/23 13:39 Oxygen Delivery Me thod Nasal Cannula 04/11/23 13:39 Oxygen Flow Rate 4 04/11/23 13:39 MDM - Arrhythmia/Palpitations Medical Decision Making Patient presents here with A-fib with RVR this clinic he has since converted his heart rate here has been normal he has had no complaints states he is feeling well blood work is normal he is stable for discharge he is to follow-up with PCP and return if worsening. Medical Records I reviewed the patient's medical records. Lab Data I reviewed the patient's lab results. 04/11/23 12:56 04/11/23 12:56 Laboratory Results WBC 13.17 10^3/uL (3.29-11.43) H 04/11/23 12:56 RBC 5.25 10^6/uL (3.85-5.65) 04/11/23 12:56 Hgb 14.30 g/dL (11.27-16.99) 04/11/23 12:56 Hct 45.3 % (37-53) 04/11/23 12:56 MCV 86.3 fl (82-101) 04/11/23 12:56 MCH 27.2 pg (27-33) 04/11/23 12:56 MCHC 31.6 g/dL (30-55) 04/11/23 12:56 RDW 15.7 % (12.1-15.1) H 04/11/23 12:56 Plt Count 240 10^3/cmm (157-399) 04/11/23 12:56 MPV 10.7 fL (7.4-10.4) H 04/11/23 12:56 Neut % (Auto) 85.3 % 04/11/23 12:56 Lymph % (Auto) 6.8 % 04/11/23 12:56 [place] % (Auto) 7.0 % 04/11/23 12:56 Eos % (Auto) 0.0 % 04/11/23 12:56 Baso % (Auto) 0.2 % 04/11/23 12:56 Neut # (Auto) 11.23 10^3/uL (1.8-7.7) H 04/11/23 12:56 Lymph # (Auto) 0.9 10^3/uL (0.8-4.8) 04/11/23 12:56 [place] # (Auto) 0.9 10^3/uL (0.2-0.9) 04/11/23 12:56 Eos # (Auto) 0.0 10^3/uL (0.0-0.8) 04/11/23 12:56 Baso # (Auto) 0.0 10^3/uL (0.0-0.1) 04/11/23 12:56 Nucleated RBC % (auto) 0 % 04/11/23 12:56 Nucleated RBCs # 0.0 /100WBC 04/11/23 12:56 Sodium 137 mmol/L (136-145) 04/11/23 12:56 Potassium 4.2 mmol/L (3.5-5.1) 04/11/23 12:56 Chloride 101 mmol/L (98-107) 04/11/23 12:56 Carbon Dioxide 26 mmol/L (22-29) 04/11/23 12:56 Anion Gap 14.2 (5-19) 04/11/23 12:56 BUN 34 mg/dL (8-23) H 04/11/23 12:56 Creatinine 1.0 mg/dL (0.7-1.2) 04/11/23 12:56 GFR Calculation Not Reportable 04/11/23 12:56 Glucose 121 mg/dL (65-115) H 04/11/23 12:56 Calculated Osmolality 293 mOsm/kg (285-295) 04/11/23 12:56 Calcium 9.4 mg/dL (8.5-10.5) 04/11/23 12:56 Total Bilirubin 0.3 mg/dL (0.15-1.2) 04/11/23 12:56 AST 24 U/L (0-40) 04/11/23 12:56 ALT 41 U/L (0-41) 04/11/23 12:56 Alkaline Phosphatase 108 U/L (40-130) 04/11/23 12:56 Total Protein 7.0 g/dL (6.6-8.7) 04/11/23 12:56 Albumin 3.5 g/dL (3.5-5.2) 04/11/23 12:56 Globulin 3.5 g/dL (1.3-4.6) 04/11/23 12:56 All radiology interpretation(s) finalized by discharge ED provider radiology interpretation(s): cxr shows no acute abnormalities EKG Data EKG 1: I personally reviewed and interpreted this EKG as follows: EKG interpretation date: 04/11/23 EKG interpretation time: 13:13 Interpretation: nsr hr [address] or t wave abnormalities qrs 137 qtc 427 Discharge Plan Discharge Patient Disposition: Home Clinical Impression: Atrial fibrillation Condition: Stable Prescriptions: No Action atorvastatin 20 mg tablet 40 mg PO BEDTIME alendronate [Fosamax] 70 mg tablet 70 mg PO Q7D Rx Instructions: ON SUNDAYS Jardiance 10 mg tablet 10 mg PO DAILY ascorbic acid (vitamin C) 500 mg capsule 500 mg PO BID Galzin 50 mg (zinc) capsule 50 mg PO DAILY furosemide [Lasix] 20 mg tablet 20 mg PO DAILY Yupelri 175 mcg/3 mL solution for nebulization 175 mcg inhalation DAILY Qty: 90 3RF budesonide [Pulmicort] 0.25 mg/2 mL suspension for nebulization 0.5 mg inhalation BID Qty: 10 3RF arformoterol 15 mcg/2 mL solution for nebulization 2 ml inhalation BID 30 Days Qty: 120 4RF potassium chloride 20 mEq Tablet Extended Release 20 meq PO DAILY@07 famotidine 20 mg tablet 20 mg PO DAILY tamsulosin 0.4 mg capsule 0.4 mg PO DAILY levalbuterol tartrate [Xopenex HFA] 45 mcg/actuation Hfa Aerosol Inhaler 1 puff INHALATION Q6H PRN (Reason: Shortness Of Breath) Qty: 0 calcium carbonate-vitamin D3 [Oyster Shell Calcium-Vit D3] 500 mg(1,250mg) -200 unit tablet 500 tab PO DAILY@07 roflumilast [Daliresp] 500 mcg Tablet 500 mcg PO DAILY@07 ropinirole 0.25 mg Tablet 0.25 mg PO BEDTIME Rx Instructions: if symptoms persist - may increase cholecalciferol (vitamin D3) 75 mcg (3,000 unit) tablet 25 mcg PO TID clopidogrel 75 mg Tablet 75 mg PO DAILY 30 Days Qty: 30 2RF Eliquis 5 mg Tablet 5 mg PO BID@07,21 Qty: 60 0RF sodium chloride 3 % solution for nebulization 4 ml inhalation .TWICE WEEKLY triamcinolone acetonide 0.1 % cream 1 applic TOPICAL BID acyclovir 800 mg tablet 800 mg PO 5XD lisinopril 10 mg tablet 10 mg PO DAILY Qty: 30 0RF guaifenesin 400 mg Tablet 400 mg PO BID metoprolol succinate 50 mg tablet extended release 24 hr 50 mg PO DAILY prednisone 20 mg tablet 20 mg PO DAILY glimepiride 2 mg tablet 1 mg PO QPM Discharge Orders: Discharge ED (Routine); Ordered 04/11/23 Ordered By: Milka Perdomo Referrals: Dorie Nichols NP [Primary Care Provider] - 1-3 days Discharge Diet: Advance as tolerated Discharge Activity: Resume usual activity Patient Instructions: Atrial Fibrillation Coding Level of Care Code ED 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
[2023-04-11 13:15] LABS: Basophils % 0.2 %; Hematocrit 45.3 % (37-53); Lymphocytes # 0.9 10^3/uL (0.8-4.8); Lymphocytes % 6.8 %; Mean Corpuscular HGB Conc 31.6 g/dL (30-55); Mean Corpuscular Hemoglobin 27.2 pg (27-33); Mean Corpuscular Volume 86.3 fl (82-101); Mean Platelet Volume 10.7 fL (7.4-10.4); Monocytes # 0.9 10^3/uL (0.2-0.9); Neutrophils # 11.23 10^3/uL (1.8-7.7); Neutrophils % 85.3 %; Nucleated Red Blood Cells % 0 %; Platelet Count 240 10^3/cmm (157-399); Red Blood Count 5.25 10^6/uL (3.85-5.65); Red Cell Distribution Width 15.7 % (12.1-15.1); White Blood Count 13.17 10^3/uL (3.29-11.43)
[2023-04-11 13:34] LABS: Alanine Aminotransferase 41 U/L (0-41); Albumin Level 3.5 g/dL (3.5-5.2); Alkaline Phosphatase 108 U/L (40-130); Anion Gap 14.2 (5-19); Aspartate Amino Transferase 24 U/L (0-40); Blood Urea Nitrogen 34 mg/dL (8-23); Calcium 9.4 mg/dL (8.5-10.5); Carbon Dioxide 26 mmol/L (22-29); Chloride 101 mmol/L (98-107); Globulin 3.5 g/dL (1.3-4.6); Glucose 121 mg/dL (65-115); Osmolality Calculated 293 mOsm/kg (285-295); Potassium 4.2 mmol/L (3.5-5.1); Sodium 137 mmol/L (136-145); Total Bilirubin 0.3 mg/dL (0.15-1.2)
[2023-04-11 13:39] VITALS: BP 159/102; PULSE 73; RESP 18; O2SAT 97
--- NOTE | 2023-04-11 13:45 | XR_ITS ---
WS: [id number] Exam: XR chest 1V portable [id number] Date/Time of Exam: 04/11/2023 1:45 PM Reason For Exam: sob Comparison 04/06/2023. The lungs are hyperinflated. No consolidating infiltrates. Chronic bibasal atelectasis. Normal cardio mediastinal silhouette. No pneumothorax. Bony structures are intact. Fiber scarring and emphysematous changes noted bilaterally. IMPRESSION: 1. Pulmonary hyperinflation with fibrous scarring and emphysematous changes. 2. No consolidated infiltrates. 3. Chronic bibasal plaque atelectasis.
[2023-04-11 14:18] VITALS: PULSE 81; O2SAT 97
== END 2023-04-11 14:19 | disposition home or self-care (01) ==
PROVIDERS: Emergency Provider Emergency Medicine; PCP Nurse Practitioner Family
DX: I48.91 Unspecified atrial fibrillation (principal); Z79.02 Long term (current) use of antithrombotics/antiplatelets; Z79.01 Long term (current) use of anticoagulants; Z79.84 Long term (current) use of oral hypoglycemic drugs; Z87.891 Personal history of nicotine dependence; I13.0 Hypertensive heart and chronic kidney disease with heart failure and stage 1 through stage 4 chronic kidney disease, or unspecified chronic kidney disease; E11.22 Type 2 diabetes mellitus with diabetic chronic kidney disease; N18.9 Chronic kidney disease, unspecified; I50.32 Chronic diastolic (congestive) heart failure; J44.9 Chronic obstructive pulmonary disease, unspecified; E78.5 Hyperlipidemia, unspecified; Z99.81 Dependence on supplemental oxygen
CPT/HCPCS: 36415; 71045; 80053; 85025; 93005; 99285

== ENCOUNTER → 2023-04-16 14:30 | Outpatient (BNVA) | payer OTHER, SELFPAY | PROVIDERS: PCP Nurse Practitioner Family; Visit Provider Internal Medicine | DX: Z01.818 Encounter for other preprocedural examination (principal); I25.10 Atherosclerotic heart disease of native coronary artery without angina pectoris; I48.91 Unspecified atrial fibrillation; I44.7 Left bundle-branch block, unspecified; J44.9 Chronic obstructive pulmonary disease, unspecified; G47.33 Obstructive sleep apnea (adult) (pediatric); E78.5 Hyperlipidemia, unspecified; I65.23 Occlusion and stenosis of bilateral carotid arteries; I13.0 Hypertensive heart and chronic kidney disease with heart failure and stage 1 through stage 4 chronic kidney disease, or unspecified chronic kidney disease; E13.22 Other specified diabetes mellitus with diabetic chronic kidney disease; I50.33 Acute on chronic diastolic (congestive) heart failure; N18.9 Chronic kidney disease, unspecified; Z87.891 Personal history of nicotine dependence; Z79.01 Long term (current) use of anticoagulants; Z79.84 Long term (current) use of oral hypoglycemic drugs | CPT/HCPCS: 99214 ==

== ENCOUNTER 2023-05-19 10:29 | Outpatient (CLI) | payer OTHER, MEDICARE, SELFPAY ==
--- NOTE | 2023-05-19 11:00 | CT_ITS ---
WS: [id number] CT chest wo con [id number] HISTORY: surveillance of pulmonary nodule TECHNIQUE: Axial imaging performed through the thorax. Coronal and sagittal reformats are submitted. All CT scans at [facility] use at least one of these dose optimization techniques: automated exposure control; mA and/or kV adjustment per patient size (includes targeted exams where dose is mat ched to clinical indication); or iterative reconstruction. CONTRAST: None DLP: 324.75 mGy.cm COMPARISON: 12/26/2022, 09/11/2022, 10/13/2019 Lungs and central airway: Marked emphysema. Hyperexpanded lungs. Spiculated nodule measuring 10 x 11 mm in the RIGHT upper lobe towards the apex with adjacent pleural tethering and scarring similar to t he most recent examinations. Mildly improved since 10/13/2019. There is LEFT apical pleural thickening and scarring also. Honeycombing and bronchiectasis in the lower lung white. Mild progression of the interstitial thickening at the lung bases . Mild nodularity. Some of the nodularity is probably rela shani to bronchial fluid and wall thickening. No mass identified or progression of suspicious masses. Pleura: Mild pleural thickening at the lung bases. Heart and pericardium: Normal size heart with no pericardial effusion. Dense coronary artery calcific ations. Mediastinum and elyse: No mediastinum or hilar adenopathy. Vessels: Moderate atherosclerosis aorta. Normal sized pulmonary artery. Chest wall and lower neck: No soft tissue masses. Upper abdomen: Cholelithiasis. Heavy calcification in the splenic artery. No adrenal mass. Incomplete ly visualized low-attenuation mass from the posterior LEFT kidney. Osseous structures: Increase in thoracic kyphosis. Degenerative disc disease and spondylitic changes. No destructive lesions. IMPRESSION: 1. Stable spiculated nodule measuring 10 x 11 mm RIGHT apex. No change since at least 10/15/2020. 2. Honeycombing and bronchiectasis at the lung bases. Slightly greater consolidation in the LEFT lowe r lobe in a tubular manner. Suspect there is fluid filling the dilated bronchi. Slightly greater inte rstitial thickening at the lung bases. 3. No dense consolidation or pneumonia. 4. No adenopathy. 5. Cholelithiasis.
== END 2023-05-19 10:30 | disposition home or self-care (01) ==
LOC: RAD 10:29
PROVIDERS: PCP Nurse Practitioner Family; Visit Provider Internal Medicine Pulmonary Disease
DX: J44.9 Chronic obstructive pulmonary disease, unspecified (principal); R91.1 Solitary pulmonary nodule; J47.9 Bronchiectasis, uncomplicated
CPT/HCPCS: 71250

== ENCOUNTER 2023-06-26 06:54 | Outpatient (CLI) | payer MEDICARE, OTHER, SELFPAY ==
--- NOTE | 2023-06-26 08:45 | US_ITS ---
WS: [id number] Complete ABDOMINAL ULTRASOUND HISTORY: R sided flank pain; L sided Mass COMPARISON: 01/24/2023 Liver: 15.6 cm in length. Normal size liver and echogenicity. No bile duct dilatation or mass. Portal Vein: Normal hepatopetal flow with monophasic waveform. Gallbladder: Prior cholecystectomy. CBD: 0.5 cm Pancreas: Obscured. Limited visualization. Right kidney: 10.7 cm x 5.4 x 5.4 cm. Cortex:1.0 cm. Normal size and echogenicity. No hydronephrosis or mass. Small cortical cyst inferior pole with a max imum diameter of 1.0 cm. Left kidney: 11.2 cm x 5.9 cm x 4.7 cm. Cortex: 1.5 cm. Normal size and echogenicity. No hydronephrosis or mass. Cortical cyst superior pole 2.3 x 2.2 x 2.1 cm. Spleen: Normal. Aorta and IVC: Unremarkable abdominal aorta and IVC. Along the LEFT lateral abdomen is encapsulated superficial soft tissue mass of variable echogenicity measuring 4.5 x 1.5 x 7.0 cm. No increased vascularity. This is most likely a subcutaneous lipoma. Th is was also described on 01/24/2023. Noted to be negative on prior PET/CT. Impression: 1. Prior cholecystectomy. 2. Very small bilateral renal cysts. 3. No bile duct dilatation. 4. Benign subcutaneous lipoma LEFT lateral abdominal wall . Negative on prior PET/CT from 02/15/2023.
== END 2023-06-26 06:55 | disposition home or self-care (01) ==
LOC: RAD 06:54
PROVIDERS: PCP Nurse Practitioner Family; Visit Provider Internal Medicine Pulmonary Disease
DX: R10.9 Unspecified abdominal pain (principal); D17.1 Benign lipomatous neoplasm of skin and subcutaneous tissue of trunk; R19.00 Intra-abdominal and pelvic swelling, mass and lump, unspecified site; Z90.49 Acquired absence of other specified parts of digestive tract
CPT/HCPCS: 76700

== ENCOUNTER → 2023-09-11 12:38 | Outpatient (BNVA) | payer OTHER, SELFPAY | PROVIDERS: PCP Nurse Practitioner Family; Visit Provider Internal Medicine Cardiovascular Disease | DX: I65.23 Occlusion and stenosis of bilateral carotid arteries (principal); I13.0 Hypertensive heart and chronic kidney disease with heart failure and stage 1 through stage 4 chronic kidney disease, or unspecified chronic kidney disease; E13.22 Other specified diabetes mellitus with diabetic chronic kidney disease; N18.9 Chronic kidney disease, unspecified; I50.9 Heart failure, unspecified; Z79.84 Long term (current) use of oral hypoglycemic drugs; I48.91 Unspecified atrial fibrillation; I42.9 Cardiomyopathy, unspecified; I25.10 Atherosclerotic heart disease of native coronary artery without angina pectoris; E13.9 Other specified diabetes mellitus without complications; J44.9 Chronic obstructive pulmonary disease, unspecified; R91.1 Solitary pulmonary nodule; Z98.890 Other specified postprocedural states; Z79.01 Long term (current) use of anticoagulants; I44.7 Left bundle-branch block, unspecified; Z87.891 Personal history of nicotine dependence | CPT/HCPCS: 99215 ==

== ENCOUNTER 2023-09-18 11:45 | Outpatient (CLI) | payer OTHER, SELFPAY ==
--- NOTE | 2023-09-18 12:30 | USCV_ITS ---
Jonathan Sultana Age: 78 Gender: M : 1945 Exam Date: 09/18/2023 12:07 Ordering Phys: Julio Cesar Garcia MD ([email or web address]) Technologist: Jmaia Duong [place]am Location[place] [facility] [place]ication: RECHECK RT ENDARECTOMY AND RECHECK STENOSIS ON LT Risk Factors: Previous Vascular Surgery: Right Brachial BP: / Left Brachial BP: / Right Left Velocity (cm/s) Spectral Plaque Velocity (cm/s) Spectral Plaque Syst/Diast Broadening Syst/Diast Broadening 131.10/ Prox CCA 38.90 / 120.80/ Hetro Mid CCA 35.90 / 82.30/ Hetro Distal CCA 35.70 / Hetro 139.60/ Prox ICA 180.00/ Hetro 139.60/ Mid ICA 116.30/ 170.30/ Distal ICA 84.80 / 218.40 ECA 44.10 Hetro 2.10 ICA/CCA 5.00 Antegrade Vertebral Antegrade 63.60/ 18.00 cm/s 87.00/ 15.50 cm/s Bi Subclavian Bi 122.7 194.5 0 0 FINDINGS INCREASED INTIMAL THICKENING ON LT CONCLUSIONS Right ICA stenosis 50-69% at the lower end of the range. RIGHT CEA. Mild atheromatous plaque right carotid bulb/ICA. Left ICA stenosis 50-69%. Moderate bulky calcified atheromatous plaque left carotid bulb/ICA. Visually significant Left ICA narrowing with increased ICA/CCA ratio suggesting greater than 70 percent stenosis.. Recommend CTA neck. Left ica velocities increased compared to previous Intimal thickening in the common carotid arteries and internal carotid arteries bilaterally. Normal antegrade Doppler flow noted in the right vertebral artery. Normal antegrade Doppler flow noted in the left vertebral artery. Rodney Andersen MD (Electronically Signed) Final Date: 18 September 2023 15:56 S
== END 2023-09-18 11:46 | disposition home or self-care (01) ==
LOC: RAD 11:45
PROVIDERS: PCP Nurse Practitioner Family; Visit Provider Internal Medicine Cardiovascular Disease
DX: I65.29 Occlusion and stenosis of unspecified carotid artery (principal)
CPT/HCPCS: 93880

== ENCOUNTER → 2023-09-24 09:52 | Outpatient (BNVA) | payer OTHER, SELFPAY | PROVIDERS: PCP Nurse Practitioner Family; Visit Provider Nurse Practitioner Family | DX: L21.8 Other seborrheic dermatitis (principal); L23.9 Allergic contact dermatitis, unspecified cause; L82.1 Other seborrheic keratosis; L57.0 Actinic keratosis; L57.8 Other skin changes due to chronic exposure to nonionizing radiation; D23.72 Other benign neoplasm of skin of left lower limb, including hip; L81.4 Other melanin hyperpigmentation; Z85.828 Personal history of other malignant neoplasm of skin | CPT/HCPCS: 17000; 99214 ==

== ENCOUNTER 2023-10-07 12:20 | Outpatient (CLI) | payer OTHER, SELFPAY | END 2023-10-07 12:21 | disposition home or self-care (01) | LOC: RT 12:21 | PROVIDERS: PCP Nurse Practitioner Family; Visit Provider Internal Medicine Pulmonary Disease | DX: J44.9 Chronic obstructive pulmonary disease, unspecified (principal) | CPT/HCPCS: 94618 ==

== ENCOUNTER 2023-10-15 14:19 | Outpatient (CLI) | payer OTHER, SELFPAY ==
--- NOTE | 2023-10-15 15:30 | CT_ITS ---
WS: [id number] CTA NECK TECHNIQUE: Contrast enhanced CTA of the neck with coronal and sagittal reformatted images and maximum intensity projection (MIP) images. NASCET criteria utilized. CLINICAL INFORMATION: Severe carotid stenosis by duplex COMPARISON: Ultrasound 09/18/2023 DLP: 240.[address] scans at [facility] use at least one of these dose optimization techniques: automated e xposure control; mA and/or kV adjustment per patient size (includes targeted exams where dose is matc hed to clinical indication); or iterative reconstruction. FINDINGS: RIGHT: RIGHT common carotid artery is patent. Postoperative changes RIGHT CEA. No significant RIGHT I CA stenosis. RIGHT ICA is patent to the skull base. RIGHT proximal ICA stenosis measures 22%. LEFT: LEFT common carotid artery is patent. Dense calcified atheromatous plaque LEFT carotid bulb ext ending into the ICA. Severe stenosis of the LEFT ECA origin. LEFT ICA remains patent to the skull bas e. LEFT distal CCA and proximal ICA stenosis measures 79%. Codominant patent vertebral arteries bilaterally. Proximal basilar artery is patent. Persistent RIGHT ASH CONVEYOR OPERATOR. Patent LEFT posterior communicating artery. Normal vascularity to the ASH CONVEYOR OPERATOR territory. Dense bilateral cavernous carotid calcification. Proximal subclavian arteries are patent. Moderate st enosis mid innominate artery measuring approximately 50%. Advanced spondylitic changes in the lung ap ices with biapical fibrosis. Aortic calcification. Normal posterior nasopharynx. Normal parapharyngea l fat. Straightening of the normal cervical lordosis. Mild spondylotic changes. IMPRESSION: 1. RIGHT proximal ICA stenosis measures 22%. 2. LEFT distal CCA and proximal ICA stenosis measures 79%. 3. Moderate stenosis mid innominate artery measuring approximate 50% with dense calcification
[2023-10-15 15:34] LABS: Blood Urea Nitrogen 27 mg/dL (8-23)
[2023-10-15] MEDS: iohexol 350 mg/mL 500 mL Btl (per mL) IV (15:49)
== END 2023-10-15 14:20 | disposition home or self-care (01) ==
LOC: RAD 14:19
PROVIDERS: PCP Nurse Practitioner Family; Visit Provider Internal Medicine Cardiovascular Disease
DX: I65.23 Occlusion and stenosis of bilateral carotid arteries (principal)
CPT/HCPCS: 70498; 82565; 84520; Q9967

== ENCOUNTER → 2023-11-24 08:37 | Outpatient (BNVA) | payer OTHER, SELFPAY | PROVIDERS: PCP Nurse Practitioner Family; Visit Provider Thoracic Surgery (Cardiothoracic Vascular Surgery) | DX: I65.22 Occlusion and stenosis of left carotid artery (principal); Z87.891 Personal history of nicotine dependence; I13.0 Hypertensive heart and chronic kidney disease with heart failure and stage 1 through stage 4 chronic kidney disease, or unspecified chronic kidney disease; E13.22 Other specified diabetes mellitus with diabetic chronic kidney disease; N18.9 Chronic kidney disease, unspecified; I50.33 Acute on chronic diastolic (congestive) heart failure; Z79.84 Long term (current) use of oral hypoglycemic drugs | CPT/HCPCS: 99203 ==

== ENCOUNTER → 2023-11-26 13:44 | Outpatient (BNVA) | payer OTHER, SELFPAY | PROVIDERS: PCP Nurse Practitioner Family; Referring Provider Internal Medicine Pulmonary Disease; Visit Provider Surgery | DX: R19.00 Intra-abdominal and pelvic swelling, mass and lump, unspecified site (principal); Z79.01 Long term (current) use of anticoagulants; I42.9 Cardiomyopathy, unspecified; N18.9 Chronic kidney disease, unspecified | CPT/HCPCS: 99204 ==

== ENCOUNTER 2023-12-06 21:44 | Inpatient (IN) | payer OTHER, SELFPAY ==
--- NOTE | 2023-12-06 20:48 | PM.CONSULT ---
Providers/Reason For Consult Consulting Physician/Specialty*: STEFANO Bob MD/cardiology Reason for Consult*: Atrial fibrillation/prolonged pause Requesting Physician: Dr. Gonzalez Primary Care Provider: Dorie Nichols NP History of Present Illness History of Present Illness Jonathan Sultana is a 78 year old male with a history of atherosclerotic heart disease, high blood pressure, dyslipidemia, intermittent atrial fibrillation, cardiomyopathy and congestive heart failure, carotid artery disease, status post right carotid endarterectomy, severe COPD, type 2 diabetes and multiple other medical problems, was seen at the [facility] last evening for progressive shortness of breath. He was found to be in atrial fibrillation rapid ventricular rate. He was treated with IV Cardizem. While being in the emergency room, patient had an episode of prolonged pause of 7 seconds or so. He got dizzy/lightheaded at that time. No syncopal episodes. He is transferred to our facility for further evaluation management. This patient has a history of intermittent atrial fibrillation and is on long-term oral anticoagulation. Yesterday morning around 3:00, he woke up with a worsening shortness of breath. He was finding extremely difficult to walk across the room because of the shortness of breath. His blood pressure was found to be elevated in the 190s. His heart rate was in the 150s and 160s. He was seen in the emergency room for these complaints. In the emergency room, he was found to be in atrial fibrillation with rapid ventricular rate around 160 bpm. He received IV Cardizem for rate control. Few minutes later, he was found to have prolonged pause of around 7 seconds on the monitor. He felt somewhat dizzy at that time. According to the patient's , he had several episodes of dizziness yesterday. However there were no other pauses noted. He did not have any chest pain. He was found to be in atrial fibrillation during the pause. But currently he is in sinus rhythm. This patient has a history of atrial fibrillation off and on and he is on long-term oral anticoagulation. He had an event monitor in August of last year. He did not have any symptomatic bradycardia or pauses at that time. Patient is known to have cardiomyopathy with an LV ejection fraction around 40% by echocardiogram a year ago. He also has a history of recurrent CHF. He had the most recent cardiac catheterization a year ago. He was found to have a high-grade lesion in the proximal left anterior descending artery for which he underwent PCI. He had no significant revascularizable lesions in the other vessels. Patient also is known to have carotid artery disease and had carotid endarterectomy on the right side a few years ago. He was found to have a 79% stenosis in the left ICA. He is being evaluated by Dr. Doss for possible surgical intervention. Patient has severe COPD and is requiring 4 L of oxygen by nasal cannula at his baseline. Review of Systems Narrative: CONSTITUTIONAL: No fever or chills. EYES: No blurring of vision or other visual disturbances lately. ENT: No hoarseness of voice, auditory disturbances or sore throat. CARDIOVASCULAR: As mentioned above. RESPIRATORY: Severe COPD requiring 4 L of oxygen by nasal cannula at baseline. GASTROINTESTINAL: No hematemesis or melena. GENITOURINARY: No dysuria or hematuria. INTEGUMENTARY: No skin rashes or history of skin cancer. NEURO: No transient ischemic attacks or amaurosis. PSYCHIATRIC: No history of psychosis or major depression. HEMATOLOGIC: On long-term oral anticoagulation for the intermittent atrial fibrillation. ENDOCRINE: No history of polyuria or polydipsia. MUSCULOSKELETAL: No recent joint pain or swelling. ALLERGY/IMMUNOLOGY: As mentioned above. Medications/Allergies Home Medications Medication Instructions Recorded Confirmed Last Taken Type alendronate 70 mg tablet (Fosamax) 70 mg PO Q7D 08/23/19 12/06/23 11/30/23 08:00 History atorvastatin 20 mg tablet 40 mg PO BEDTIME 08/23/19 12/06/23 12/05/23 17:00 History potassium chloride 20 mEq 20 meq PO DAILY@08/02/20 12/06/23 12/06/23 08:00 History tablet,extended release calcium carbonate 500 mg-vitamin 500 tab PO DAILY@10/16/20 12/06/23 12/05/23 08:00 History D3 5 mcg (200 unit) tablet (Oyster Shell Calcium-Vitamin D3) roflumilast 500 mcg tablet 500 mcg PO DAILY@10/16/20 12/06/23 12/06/23 08:00 History (Daliresp) ropinirole 0.25 mg tablet 0.25 mg PO BEDTIME 10/16/20 12/06/23 12/05/23 17:00 History tamsulosin 0.4 mg capsule 0.4 mg PO DAILY 10/16/20 12/06/23 12/06/23 08:00 History cholecalciferol (vitamin D3) 75 25 mcg PO TID 10/17/21 12/06/23 12/05/23 17:00 History mcg (3,000 unit) tablet budesonide 0.25 mg/2 mL suspension 0.5 mg (4 mL) inhalation BID #10 mL 10/24/21 12/06/23 12/06/23 08:00 Rx for nebulization (Pulmicort) revefenacin 175 mcg/3 mL solution 175 mcg (3 mL) inhalation DAILY 10/24/21 12/06/23 12/05/23 12:00 Rx for nebulization (Yupelri) #90 mL arformoterol 15 mcg/2 mL solution 2 ml inhalation BID 30 days #120 mL 10/29/21 12/06/23 12/06/23 08:00 Rx for nebulization empagliflozin 10 mg tablet 10 mg PO DAILY 12/10/21 12/06/23 12/06/23 08:00 History (Jardiance) guaifenesin 400 mg tablet 400 mg PO BID 07/16/22 12/06/23 12/06/23 08:00 History clopidogrel 75 mg tablet 75 mg PO DAILY 30 days #30 tabs 09/19/22 12/06/23 12/06/23 08:00 Rx furosemide 20 mg tablet (Lasix) 20 mg PO DAILY 10/16/22 12/06/23 12/06/23 08:00 History lisinopril 10 mg tablet 10 mg PO DAILY #30 tabs 04/06/23 12/06/23 12/06/23 08:00 Rx metoprolol succinate 50 mg 50 mg PO DAILY 04/11/23 12/06/23 12/06/23 08:00 History tablet,extended release 24 hr glimepiride 1 mg tablet 1 mg PO DAILY 04/16/23 12/06/23 12/05/23 17:00 History sodium chloride 3 % for 4 ml inhalation DAILY secretions 04/16/23 12/06/23 Unknown History nebulization albuterol sulfate 90 mcg/actuation 2 puff inhalation Q6H PRN 06/11/23 12/07/23 Unknown History aerosol inhaler Shortness Of Breath Or Wheezing apixaban 5 mg tablet (Eliquis) 5 mg PO BID@07,21 #180 tabs 08/04/23 12/06/23 12/06/23 20:00 Rx levalbuterol tartrate 45 1 puff inhalation Q6H PRN 08/05/23 12/06/23 12/06/23 08:00 Rx mcg/actuation aerosol inhaler Shortness Of Breath #15 grams (Xopenex HFA) lorazepam 0.5 mg tablet 0.5 mg PO BID PRN Anxiety 09/11/23 12/06/23 Unknown History Oxymizer Pendant #1 ea 11/17/23 12/07/23 Unknown Rx Allergies Allergy/AdvReac Type Severity Reaction Status Date / Time formoterol Allergy Unknown Unknown Verified 11/26/23 13:59 [id number] Reductase Allergy ALGY-Joint Verified 11/26/23 13:59 Inhibitor Pain simvastatin AdvReac Intermediate ADR-Cramping Verified 11/26/23 13:59 of the Muscles PFSH Acute PFSH: Medical History LBBB (left bundle branch block) Diastolic CHF, acute on chronic COPD exacerbation Pneumonia Pulmonary emphysema with fibrosis of lung History of echocardiogram (~11/2019) EF 50-55%, no valvular abnormalities, normal pulmonary pressures Osteoporosis alendronate BPH (benign prostatic hyperplasia) On home oxygen therapy 4L History of 2019 novel coronavirus disease (COVID-19) (~07/2020) Heart failure with preserved ejection fraction History of nonmelanoma skin cancer Ventricular ectopy Fracture of second metatarsal bone RLS (restless legs syndrome) GERD (gastroesophageal reflux disease) Anticoagulation adequate Eliquis Atrial fibrillation COPD (chronic obstructive pulmonary disease) ASHD (arteriosclerotic heart disease) CKD (chronic kidney disease) CHF (congestive heart failure) HTN (hypertension) MOSHE (obstructive sleep apnea) Bipap 09/03 Hyperlipidemia Diabetes 1.5, managed as type 2 Carotid stenosis, bilateral Surgical History S/P carpal tunnel release S/P sinus surgery S/P carotid endarterectomy Family History Mother , AGE 64 Diabetes Cancer Father , AGE 62 CAD (coronary artery disease) Social History Smoking and tobacco/nicotine status: former use of tobacco/nicotine Quit status (tobacco/nicotine): has quit using Year quit tobacco: 1999 [id number] Second hand smoke exposure: No Alcohol intake: never Substance/Drug Use: never Lives independently: Yes Household members: spouse Housing: House Marital status: service: Yes branch: [employer] Current occupational status: retired Pets and animals: No Do you think of yourself as: Straight/Heterosexual Current gender identity: Male Physical Exam Narrative: GENERAL: The patient is alert and oriented times three. Not in any acute distress. HEENT: No significant pallor, icterus or lymphadenopathy.Oral cavity: There are no mucous membrane lesions. NECK: Trachea appears to be central. No masses noted. No JVD or thyromegaly appreciated. Carotid bruit on the left side RESPIRATORY: Chest is symmetrical. No intercostals muscle retraction or any accessory muscle activation. There is no chest wall tenderness. Breath sounds are heard bilaterally. No rales or rhonchi heard. No evidence of any consolidation. BREASTS: Deferred. HEART: The heart sounds are normal. No S3 or S4. Short systolic murmur in the left sternal border. No diastolic murmurs. No pericardial rub ABDOMEN: No vessel pulsations or distention. No tenderness. No organomegaly appreciated. Bowel sounds are normally heard. : Deferred. RECTAL: Deferred. LYMPHATIC: No lymphadenopathy noted in the neck. EXTREMITIES: No edema or cyanosis. No clubbing. MUSCULOSKELETAL: No acute joint deformities or swelling SKIN: There are no significant rashes or ecchymosis NEUROPSYCHIATRIC: The patient is alert and oriented x3. Appears to be in a good mood. No tremors or rigidity noted. Data Other Labs: Laboratory Last Values WBC 8.57 10^3/uL (3.29-11.43) 12/07/23 03:38 RBC 5.06 10^6/uL (3.85-5.65) 12/07/23 03:38 Hgb 13.80 g/dL (11.27-16.99) 12/07/23 03:38 Hct 45.4 % (37-53) 12/07/23 03:38 MCV 89.7 fl (82-101) 12/07/23 03:38 MCH 27.3 pg (27-33) 12/07/23 03:38 MCHC 30.4 g/dL (30-55) 12/07/23 03:38 RDW 15.2 % (12.1-15.1) H 12/07/23 03:38 Plt Count 179 10^3/cmm (157-399) 12/07/23 03:38 MPV 11.8 fL (7.4-10.4) H 12/07/23 03:38 Neut % (Auto) 64.0 % 12/07/23 03:38 Lymph % (Auto) 15.5 % 12/07/23 03:38 [place] % (Auto) 18.2 % 12/07/23 03:38 Eos % (Auto) 0.7 % 12/07/23 03:38 Baso % (Auto) 0.8 % 12/07/23 03:38 Neut # (Auto) 5.48 10^3/uL (1.8-7.7) 12/07/23 03:38 Lymph # (Auto) 1.3 10^3/uL (0.8-4.8) 12/07/23 03:38 [place] # (Auto) 1.6 10^3/uL (0.2-0.9) H 12/07/23 03:38 Eos # (Auto) 0.1 10^3/uL (0.0-0.8) 12/07/23 03:38 Baso # (Auto) 0.1 10^3/uL (0.0-0.1) 12/07/23 03:38 Nucleated RBC % (auto) 0 % 12/07/23 03:38 Nucleated RBCs # 0.0 /100WBC 12/07/23 03:38 APTT 80.7 SECONDS (23.9-36.7) H 12/07/23 12:27 Sodium 140 mmol/L (136-145) 12/07/23 03:38 Potassium 4.0 mmol/L (3.5-5.1) 12/07/23 03:38 Chloride 103 mmol/L (98-107) 12/07/23 03:38 Carbon Dioxide 25 mmol/L (22-29) 12/07/23 03:38 Anion Gap 16.0 (5-19) 12/07/23 03:38 BUN 26 mg/dL (8-23) H 12/07/23 03:38 Creatinine 0.8 mg/dL (0.7-1.2) 12/07/23 03:38 GFR Calculation Not Reportable 12/07/23 03:38 Glucose 93 mg/dL (65-115) 12/07/23 03:38 POC Glucose 205 mg/dL (70-110) H 12/07/23 11:29 Calculated Osmolality 294 mOsm/kg (285-295) 12/07/23 03:38 Calcium 9.2 mg/dL (8.5-10.5) 12/07/23 03:38 Magnesium 1.9 mg/dL (1.7-2.3) 12/07/23 03:38 Creatine Kinase 53 U/L (39-308) 12/07/23 01:02 Troponin T Baseline 26 ng/L (0-15) H 12/07/23 01:02 Troponin T 120 Minute 28.91 ng/L (0-15) H 12/07/23 03:38 Delta Troponin T 2.91 ABS# (0-10) 12/07/23 03:38 Troponin T Hi Sens 6Hr 24.90 ng/L (0-15) H 12/07/23 06:56 Troponin T Hi Sens 6Hr Delta -1.10 ng/L (0-12) L 12/07/23 06:56 NT-Pro-B Natriuret Pep 1340 pg/mL (0-450) H 12/07/23 01:02 TSH 0.88 uIU/mL (0.27-4.20) 12/07/23 01:02 EKG 1: My Interpretation: The EKG showed a sinus rhythm with a left bundle branch block pattern. Occasional PVCs. Possible old anteroseptal WI. Other data: Echocardiogram from 09/13/2022 normal left ventricular size with diminished fusion fraction 40%. Diffuse hypokinesia of the left ventricle Trace to mild mitral regurgitation. Thickened mitral valve. Thickened aortic valve. There is no pericardial effusion. There are no intracardiac masses. Compared to the study from 10/18/2020, there is a drop in the LV ejection fraction from [address] 40% Dr. Reeves was informed about these findings Cardiac catheterization on 09/19/2022 * Left Main has no significant disease. * Circumflex has no significant disease. Large sized ramus/ Very high OM branch is patent. * Proximal Left Anterior Descending: obstructive 70-80% stenosis, FAYE: 3 flow. However was an eccenteric lesion. Decision made to perform iFR to confirm severity prior to intervention. * Right Coronary Artery has no signfiicant disease. Collateral is seen going to Left circumflex artery territory. * Coronary angiography shows right dominance. * Proximal Left Anterior Descendin% stenosis treated with a AB TREK 2.50X12 RX BALLOON, and VALERIO Tubbs FABI 3.0X15 IFTIKHAR. 0% residual stenosis, FAYE: 3 flow. A&P Assessment and plan (1) Bradycardia: Patient with episode of prolonged pauses and bradycardia happen after the IV Cardizem infusion. Patient already has been taking the metoprolol for rate control. The combination of these 2 medication might have because the bradycardic episode at that time. Possibility of him having underlying sinus hawk dysfunction is a strong consideration as well. Currently he is in sinus rhythm with a normal heartbeat. Has not had any recurrence of bradycardia or pauses since the initial event. (2) Intermittent atrial fibrillation: Patient seems to have intermittent atrial fibrillation which is symptomatic. For further management, I may start him on amiodarone 400 mg p.o. twice daily. He need to be closely monitored on telemetry. If the patient develops symptomatic bradycardia, he requires a permanent pacer implantation for further management of his condition. (3) Ischemic cardiomyopathy: Patient fraction was 40% last year. Currently it seems to be around 46%. Need to optimize his medical treatment with the GDMT (4) COPD (chronic obstructive pulmonary disease): May continue on the current management Qualifiers: COPD type: unspecified COPD Qualified Code(s): J44.9 - Chronic obstructive pulmonary disease, unspecified (5) MOSHE (obstructive sleep apnea): Continue on the current management. (6) Carotid stenosis, bilateral: Patient has a high-grade stenosis in the left ICA. Being evaluated for surgical intervention by Dr. Doss. Consult Attestations Medical Necessity Statement: Hold off on AV more hawk blocking agents at this time. I may start the patient on amiodarone 400 mg p.o. twice daily. He needs to be closely monitored on telemetry. He is on IV heparin and the Eliquis is on hold. If he does not develop any symptomatic bradycardia or pauses, be discharged home on amiodarone and with a heart monitor. Based on the clinical progress, further recommendations will be made. Thank you for the opportunity to evaluate this patient and make these recommendations Coding Level of Care Code 10071 Diagnoses Bradycardia R00.1 Intermittent atrial fibrillation I48.0 Ischemic cardiomyopathy I25.5 Chronic obstructive pulmonary disease, unspecified COPD type J44.9 COPD type: unspecified COPD MOSHE (obstructive sleep apnea) G47.33 Carotid stenosis, bilateral I65.23
[2023-12-06 21:46] VITALS: BMI 20.8
[2023-12-06 22:13] VITALS: BP 182/91; PULSE 71; RESP 23; TEMP 36.7; O2SAT 97
[2023-12-06 22:43] VITALS: PULSE 78
--- NOTE | 2023-12-06 22:50 | PM.HP ---
Providers/Chief Complaint Admitting Physician: Suri Ervin MD Primary Care Provider: Dorie Nichols NP Chief Complaint: afib History of Present Illness Jonathan Sultana is a 78 year old male CAD, left bundle branch block, diastolic CHF, COPD, diastolic CHF, atrial fibrillation on Eliquis, CKD history of carotid artery stenosis, hyperlipidemia, type 2 diabetes mellitus, obstructive sleep apnea, hypertension, who has been complaining of shortness of breath and chest palpitations early this morning. Patient tells me that earlier this morning he had development of shortness of breath, with chest palpitations, feeling lightheaded, dizzy, presyncopal symptoms, but denies passing out, shortness of breath with exertion, no fevers, no cough, he presented to [facility], he was diagnosed with A-fib with RVR, heart rates 130s to 150s, was given diltiazem push, heart rates improved, plans on discharging him home, upon discharge patient had sinus pauses/asystole lasting up to 7 seconds, patient was symptomatic lightheaded and dizzy, which subsequently resolved, no documented loss of pulse, or loss of consciousness, patient was transferred to [facility] for further evaluation, currently is alert oriented x 3, following all commands, heart rates in the 70s, A-fib, blood pressure 182/91 pulse 71, respiratory 23 temperature 98, he is on 4 L, full code Review of Systems Const: Denies: fever(s) or chills Card: Reports: palpitations; Denies: chest pain Resp: Reports: dyspnea GI: Denies: abdominal pain : Denies: flank pain Musc: Denies: neck pain or back pain Neuro: Denies: headache(s) Medications/Allergies Home Medications Medication Instructions Recorded Confirmed Last Taken Type alendronate 70 mg tablet (Fosamax) 70 mg PO Q7D 08/23/19 12/06/23 11/30/23 08:00 History atorvastatin 20 mg tablet 40 mg PO BEDTIME 08/23/19 12/06/23 12/05/23 17:00 History potassium chloride 20 mEq 20 meq PO DAILY@08/02/20 12/06/23 12/06/23 08:00 History tablet,extended release calcium carbonate 500 mg-vitamin 500 tab PO DAILY@10/16/20 12/06/23 12/05/23 08:00 History D3 5 mcg (200 unit) tablet (Oyster Shell Calcium-Vitamin D3) roflumilast 500 mcg tablet 500 mcg PO DAILY@07 10/16/20 12/06/23 12/06/23 08:00 History (Daliresp) ropinirole 0.25 mg tablet 0.25 mg PO BEDTIME 10/16/20 12/06/23 12/05/23 17:00 History tamsulosin 0.4 mg capsule 0.4 mg PO DAILY 10/16/20 12/06/23 12/06/23 08:00 History cholecalciferol (vitamin D3) 75 25 mcg PO TID 10/17/21 12/06/23 12/05/23 17:00 History mcg (3,000 unit) tablet budesonide 0.25 mg/2 mL suspension 0.5 mg (4 mL) inhalation BID #10 mL 10/24/21 12/06/23 12/06/23 08:00 Rx for nebulization (Pulmicort) revefenacin 175 mcg/3 mL solution 175 mcg (3 mL) inhalation DAILY 10/24/21 12/06/23 12/05/23 12:00 Rx for nebulization (Yupelri) #90 mL arformoterol 15 mcg/2 mL solution 2 ml inhalation BID 30 days #120 mL 10/29/21 12/06/23 12/06/23 08:00 Rx for nebulization empagliflozin 10 mg tablet 10 mg PO DAILY 12/10/21 12/06/23 12/06/23 08:00 History (Jardiance) guaifenesin 400 mg tablet 400 mg PO BID 07/16/22 12/06/23 12/06/23 08:00 History clopidogrel 75 mg tablet 75 mg PO DAILY 30 days #30 tabs 09/19/22 12/06/23 12/06/23 08:00 Rx furosemide 20 mg tablet (Lasix) 20 mg PO DAILY 10/16/22 12/06/23 12/06/23 08:00 History lisinopril 10 mg tablet 10 mg PO DAILY #30 tabs 04/06/23 12/06/23 12/06/23 08:00 Rx metoprolol succinate 50 mg 50 mg PO DAILY 04/11/23 12/06/23 12/06/23 08:00 History tablet,extended release 24 hr glimepiride 1 mg tablet 1 mg PO DAILY 04/16/23 12/06/23 12/05/23 17:00 History sodium chloride 3 % for 4 ml inhalation DAILY secretions 04/16/23 12/06/23 Unknown History nebulization albuterol sulfate 90 mcg/actuation 2 puff inhalation Q6H PRN 06/11/23 11/26/23 Unknown History aerosol inhaler Shortness Of Breath Or Wheezing apixaban 5 mg tablet (Eliquis) 5 mg PO BID@07,21 #180 tabs 08/04/23 12/06/23 12/06/23 20:00 Rx levalbuterol tartrate 45 1 puff inhalation Q6H PRN 08/05/23 12/06/23 12/06/23 08:00 Rx mcg/actuation aerosol inhaler Shortness Of Breath #15 grams (Xopenex HFA) lorazepam 0.5 mg tablet 0.5 mg PO BID PRN Anxiety 09/11/23 12/06/23 Unknown History Oxymizer Pendant #1 ea 11/17/23 11/26/23 Unknown Rx Allergies Allergy/AdvReac Type Severity Reaction Status Date / Time formoterol Allergy Unknown Unknown Verified 11/26/23 13:59 Zckmupt-AJP-GdS Reductase Allergy ALGY-Joint Verified 11/26/23 13:59 Inhibitor Pain simvastatin AdvReac Intermediate ADR-Cramping Verified 11/26/23 13:59 of the Muscles PFSH Acute PFSH: Medical History LBBB (left bundle branch block) Diastolic CHF, acute on chronic COPD exacerbation Pneumonia Pulmonary emphysema with fibrosis of lung History of echocardiogram (~11/2019) EF 50-55%, no valvular abnormalities, normal pulmonary pressures Osteoporosis alendronate BPH (benign prostatic hyperplasia) On home oxygen therapy 4L History of 2019 novel coronavirus disease (COVID-19) (~07/2020) Heart failure with preserved ejection fraction History of nonmelanoma skin cancer Ventricular ectopy Fracture of second metatarsal bone RLS (restless legs syndrome) GERD (gastroesophageal reflux disease) Anticoagulation adequate Eliquis Atrial fibrillation COPD (chronic obstructive pulmonary disease) ASHD (arteriosclerotic heart disease) CKD (chronic kidney disease) CHF (congestive heart failure) HTN (hypertension) MOSHE (obstructive sleep apnea) Bipap 09/03 Hyperlipidemia Diabetes 1.5, managed as type 2 Carotid stenosis, bilateral Surgical History S/P carpal tunnel release S/P sinus surgery S/P carotid endarterectomy Family History Mother , AGE 64 Diabetes Cancer Father , AGE 62 CAD (coronary artery disease) Social History Smoking and tobacco/nicotine status: former use of tobacco/nicotine Quit status (tobacco/nicotine): has quit using Year quit tobacco: 1999 [id number] Second hand smoke exposure: No Alcohol intake: never Substance/Drug Use: never Lives independently: Yes Household members: spouse Housing: House Marital status: service: Yes branch: [employer] Current occupational status: retired Pets and animals: No Do you think of yourself as: Straight/Heterosexual Current gender identity: Male Vitals/I&O/Wt Last Vital Signs Temp 98.0 F 12/06/23 22:13 Pulse 71 12/06/23 22:13 Resp 23 H 12/06/23 22:13 BP 182/91 12/06/23 22:13 Pulse Ox 97 12/06/23 22:13 O2 Del Method Nasal Cannula 12/06/23 22:13 O2 Flow Rate 4 12/06/23 22:13 12/06/23 12/06/23 12/06/23 06:59 14:59 22:59 Intake Total 0 / 0 Balance 0 / 0 Weight last 48 hrs Weight 67.903 kg Physical Exam Const: COMMON NORMALS: no acute distress and patient oriented x3 HENMT: COMMON NORMALS: normocephalic HEAD & SCALP: normocephalic Eye: COMMON NORMALS: Equal, round and reactive pupils present and EOMs intact bilaterally Neck/C-Spine: COMMON NORMALS: no JVD Resp: COMMON NORMALS: normal respiratory effort, No retractions, No use of accessory muscles and clear to auscultation bilaterally AUSCULTATION: clear to auscultation bilaterally Cardio: COMMON NORMALS: regular rate, regular rhythm, S1 normal heart sound present and S2 normal heart sound present RATE: regular rate RHYTHM: abnormal rhythm HEART SOUNDS: S1 normal heart sound present and S2 normal heart sound present GI: COMMON NORMALS: Normal to inspection, nondistended, normoactive bowel sounds present, Soft to palpation and non-tender Extremity: COMMON NORMALS: no calf tenderness and no pedal edema Neuro: COMMON NORMALS: patient oriented x3, CN's II-XII intact bilaterally and moves all extremities Psych: COMMON NORMALS: mental status grossly normal A&P Assessment and plan (1) Cardiomyopathy: (2) CHF (congestive heart failure): (3) Atrial fibrillation: (4) LBBB (left bundle branch block): (5) Anticoagulation adequate: (6) Diabetes 1.5, managed as type 2: (7) CKD (chronic kidney disease): (8) COPD (chronic obstructive pulmonary disease): (9) MOSHE (obstructive sleep apnea): (10) Sinus pause: Plan History of atrial fibrillation ? With sinus pause, with tachybradycardia syndrome ? Plan ? Continue telemetry monitoring ? Serial EKGs, serial troponins, telemetry monitoring ? Cardiac echo ? Last dose of Eliquis was this morning, will switch to heparin drip ? Monitor heart rates closely ? Will consider replacing if required ? Cardiology consulted for consideration of pacemaker placement ? History of CAD -History of atrial fibrillation -History of COPD ? History of CHF ? History of type 2 diabetes mellitus ? Full code ? Heparin drip for DVT prophylaxis Attestations Medical Necessity Statement*: Patient requires hospitalization, inpatient, greater than 2 minutes, for sinus pause, Diagnoses Cardiomyopathy I42.9 CHF (congestive heart failure) I50.9 Atrial fibrillation I48.91 LBBB (left bundle branch block) I44.7 Anticoagulation adequate Z79.01 Diabetes 1.5, managed as type 2 E13.9 CKD (chronic kidney disease) N18.9 Centrilobular emphysema J44.9 MOSHE (obstructive sleep apnea) G47.33 Sinus pause I45.5
[2023-12-06 23:03] LABS: Glucose Point of Care 100 mg/dL (70-110)
[2023-12-06 23:23] VITALS: BP 179/88; PULSE 73; RESP 21; TEMP 36.6; O2SAT 95
[2023-12-06] MEDS: atorvastatin 40 mg Tablet PO (23:36)
[2023-12-06] MEDS: amlodipine 10 mg Tablet PO (23:36)
[2023-12-06] MEDS: heparin 5,000 unit/mL INJ 1 mL IV (23:39)
[2023-12-06] MEDS: levalbuterol 1.25 mg/3 mL Neb INHALATION (23:45)
[2023-12-06 23:47] VITALS: PULSE 119; RESP 18; O2SAT 93
[2023-12-06] MEDS: heparin drip 25,000 UNIT/500 ML PREMIX 19 UNIT IV (23:48)
[2023-12-06 23:49] VITALS: O2SAT 93
--- NOTE | 2023-12-06 23:54 | ECG_ITS ---
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 Measurements Intervals [place] Rate: 83 P: 80 KS: 173 QRS: 67 QRSD: 124 T: 83 QT: 390 QTc: 459 Interpretive Statements SINUS RHYTHM SEPTAL MYOCARDIAL INFARCTION , PROBABLY OLD [40+ ms Q WAVE IN V1/V2] Left bundle branch block pattern left bundle branch block Compared to ECG 04/11/2023 13:13:23 Myocardial infarct finding now present Ventricular premature complex(es) no longer present Electronically Signed On 12-07-2023 22:16:04 CDT by Florian Bob M.D. [id number]
[2023-12-07] VITALS (12 sets, daily range): BP systolic 107–159; BP diastolic 61–84; PULSE 74–88; RESP 16–26; TEMP 36.4–37.1; O2SAT 94–98
[2023-12-07 01:31] LABS: Platelet Count 188 10^3/cmm (157-399)
[2023-12-07 01:56] LABS: Troponin(5th) Baseline 26 ng/L (0-15)
[2023-12-07 02:07] LABS: Anion Gap 11.3 (5-19); Blood Urea Nitrogen 25 mg/dL (8-23); Calcium 9.2 mg/dL (8.5-10.5); Carbon Dioxide 30 mmol/L (22-29); Chloride 103 mmol/L (98-107); Creatine Phosphokinase 53 U/L (39-308); Creatinine Clr Calc Pharmacy 69.2153; Glucose 144 mg/dL (65-115); Magnesium 1.8 mg/dL (1.7-2.3); NT Pro B Type Natriuretic Pept 1340 pg/mL (0-450); Osmolality Calculated 297 mOsm/kg (285-295); Potassium 4.3 mmol/L (3.5-5.1); Sodium 140 mmol/L (136-145); Thyroid Stimulating Hormone 0.88 uIU/mL (0.27-4.20)
[2023-12-07 04:41] LABS: Basophils # 0.1 10^3/uL (0.0-0.1); Basophils % 0.8 %; Eosinophils # 0.1 10^3/uL (0.0-0.8); Eosinophils % 0.7 %; Hematocrit 45.4 % (37-53); Lymphocytes # 1.3 10^3/uL (0.8-4.8); Lymphocytes % 15.5 %; Mean Corpuscular HGB Conc 30.4 g/dL (30-55); Mean Corpuscular Hemoglobin 27.3 pg (27-33); Mean Corpuscular Volume 89.7 fl (82-101); Mean Platelet Volume 11.8 fL (7.4-10.4); Monocytes # 1.6 10^3/uL (0.2-0.9); Monocytes % 18.2 %; Neutrophils # 5.48 10^3/uL (1.8-7.7); Nucleated Red Blood Cells % 0 %; Platelet Count 179 10^3/cmm (157-399); Red Blood Count 5.06 10^6/uL (3.85-5.65); Red Cell Distribution Width 15.2 % (12.1-15.1); White Blood Count 8.57 10^3/uL (3.29-11.43)
--- NOTE | 2023-12-07 04:57 | ECG_ITS ---
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 Measurements Intervals [place] Rate: 87 P: 86 TN: 179 QRS: 62 QRSD: 112 T: 106 QT: 372 QTc: 450 Interpretive Statements SINUS RHYTHM WITH OCCASIONAL VENTRICULAR PREMATURE COMPLEXES LOW QRS VOLTAGE IN PRECORDIAL LEADS [QRS DEFLECTION < 1.0 mV IN CHEST LEADS] ANTEROSEPTAL MYOCARDIAL INFARCTION , PROBABLY OLD [40+ ms Q WAVE IN V1-V4] Compared to ECG 12/06/2023 23:54:37 Ventricular premature complex(es) now present Low QRS voltage now present Myocardial infarct finding still present Electronically Signed On 12-07-2023 22:34:56 CDT by Florian Bob M.D. [id number]
[2023-12-07 05:01] LABS: Troponin 5 2HR 28.91 ng/L (0-15); Troponin 5 2HR Delta 2.91 ABS# (0-10)
[2023-12-07 05:27] LABS: Magnesium 1.9 mg/dL (1.7-2.3)
[2023-12-07 05:45] LABS: Blood Urea Nitrogen 26 mg/dL (8-23); Calcium 9.2 mg/dL (8.5-10.5); Carbon Dioxide 25 mmol/L (22-29); Chloride 103 mmol/L (98-107); Creatinine Clr Calc Pharmacy 77.5155; Glucose 93 mg/dL (65-115); Osmolality Calculated 294 mOsm/kg (285-295); Sodium 140 mmol/L (136-145)
--- NOTE | 2023-12-07 06:00 | USCV_ITS ---
Jonathan Sultana Age: 78 Gender: M : 1945 Exam Date: 12/07/2023 07:08 Ordering Phys: Florian Bob MD ([email or web address]) Technologist: Cy Woods [place] [facility] [place]: afib BP: 159 / 82 HR: 83 Rhythm: Sinus Technical Quality: Adequate MEASUREMENTS (Male / Female) Normal Values 2D ECHO LV Ejection Fraction MOD 2C 48.2 % LV Ejection Fraction 2C AL 46.0 % RA Systolic Volume 4C AL 52.5 ml RA Systolic Volume 4C MOD 51.3 ml LA Sys Volume AL 58.7 cm cubed LA Sys Volume Index AL 32.2 cm cubed/m squared IVC Diameter 1.5 cm DOPPLER AV Peak Velocity 100.0 cm/s LVOT Peak Velocity 73.0 cm/s MV Peak Velocity 110.0 cm/s MV Area PHT 8.6 cm squared Mitral E to A Ratio 0.6 FINDINGS Left Ventricle Normal LV size with a diminished ejection fraction of around 46%. Moderate diffuse hypokinesia of the septum and the basal inferior wall segments.Grade I/IV diastolic dysfunction (abnormal relaxation filling pattern), normal to mildly elevated filling pressures. Right Ventricle The right ventricle is normal in size and function. Right Atrium Mildly increased right atrial size. Left Atrium Mildly increased left atrial size. Mitral Valve Thickened mitral valve. Aortic Valve Thickened aortic valve. Tricuspid Valve No gross abnormalities noted Pulmonic Valve Pulmonic valve not well visualized. Pericardium Normal pericardium without effusion. Aorta Normal ascending aorta dimension. IVC Normal inferior vena cava. CONCLUSIONS Normal LV size with a diminished ejection fraction of around 46%. Moderate diffuse hypokinesia of the septum and the basal inferior wall segments.Grade I/IV diastolic dysfunction (abnormal relaxation filling pattern), normal to mildly elevated filling pressures. Mild biatrial enlargement Thickened aortic and mitral valves There is no pericardial effusion. Compared to the study from 09/13/2022, the ejection fraction has slightly improved Dr Florian Bob MD [facility] (Electronically Signed) Final Date: 07 Dec 2023 08:55 S
[2023-12-07] MEDS: potassium chloride ER 10 mEq Tablet 20 MEQ PO (06:28)
[2023-12-07] MEDS: levalbuterol 1.25 mg/3 mL Neb INHALATION ×2 (08:05→21:04)
[2023-12-07] MEDS: budesonide 0.5 mg/2 mL Neb INHALATION ×2 (08:05→21:05)
[2023-12-07] MEDS: lisinopril 10 mg Tablet PO (08:37)
[2023-12-07] MEDS: amlodipine 10 mg Tablet PO (08:37)
[2023-12-07] MEDS: clopidogrel 75 mg Tablet PO (08:37)
[2023-12-07] MEDS: tamsulosin 0.4 mg Capsule 0.400000000000000022 MG PO (08:37)
[2023-12-07] MEDS: FUROsemide 20 mg Tablet PO (08:37)
[2023-12-07] MEDS: pantoprazole 40 mg SDV IVP (08:38)
--- NOTE | 2023-12-07 09:23 | PC.NURSE ---
Dr. Bob visited patient and ordered amiodarone 400mg BID. Order placed.
[2023-12-07] MEDS: amiodarone 200 mg Tablet 400 MG PO ×2 (09:34→17:19)
[2023-12-07 11:33] LABS: Glucose Point of Care 205 mg/dL (70-110)
[2023-12-07] MEDS: insulin lispro 100 unit/1 mL SUBCUT (11:51)
[2023-12-07 12:54] LABS: Partial Thromboplastin Time 80.7 SECONDS (23.9-36.7)
[2023-12-07 17:06] LABS: Glucose Point of Care 128 mg/dL (70-110)
[2023-12-07 19:59] LABS: Partial Thromboplastin Time 90.7 SECONDS (23.9-36.7)
[2023-12-07 20:02] LABS: Glucose Point of Care 145 mg/dL (70-110)
[2023-12-07] MEDS: atorvastatin 40 mg Tablet PO (20:31)
[2023-12-07] MEDS: ropinirole 0.25 mg Tablet PO (20:31)
--- NOTE | 2023-12-07 21:17 | P.PN_ITS ---
Subjective 2 Subjective: He reports he is doing okay, denies chest pain or pressure. Denies lightheadedness. Has been having cough and is coughing up greenish purulent appearing sputum. Vitals/I&O/Wt Last Vital Signs Temp 97.6 F 12/07/23 16:00 Pulse 80 12/07/23 21:14 Resp 17 12/07/23 21:05 BP 113/63 12/07/23 16:00 Pulse Ox 96 12/07/23 21:05 O2 Del Method Nasal Cannula 12/07/23 21:05 O2 Flow Rate 3 12/07/23 21:05 12/07/23 12/07/23 12/07/23 06:59 14:59 22:59 Intake Total 606.667 / 606.667 340.5 / 340.5 343.367 / 683.867 Output Total 950 / 950 325 / 325 Balance -343.333 / -343.333 15.5 / 15.5 343.367 / 358.867 Weight last 48 hrs Weight 66.678 kg Weight 67.086 kg Weight 67.903 kg Physical Exam 2 Const: COMMON NORMALS: patient oriented x3 and alert GENERAL APPEARANCE: c ooperative ORIENTATION/CONSCIOUSNESS: Yes awake HENMT: COMMON NORMALS: oropharynx normal Neck/C-Spine: COMMON NORMALS: no JVD Resp: AUSCULTATION: wheezes Cardio: COMMON NORMALS: no JVD, regular rhythm, S1 normal heart sound present, S2 normal heart sound present and No murmurs present (Cardio) RHYTHM: regular rhythm HEART SOUNDS: S1 normal heart sound present and S2 normal heart sound present GI: COMMON NORMALS: Normal to inspection, nondistended, normoactive bowel sounds present, Soft to palpation and non-tender PALPATION: Yes Soft to palpation Extremity: COMMON NORMALS: no joint enlargement and no pedal edema Neuro: COMMON NORMALS: patient oriented x3 and moves all extremities S ENSORIUM/ORIENTATION: Yes alert Skin: COMMON NORMALS: no rashes or lesions noted GENERAL SKIN EXAM: no rashes or lesions noted Data 12/07/23 03:38 12/07/23 03:38 Micro: Microbiology 12/07/23 Unknown Gram Stain - Final Sputum - Expectorated Sputum A&P Assessment and plan (1) Cardiomyopathy: (2) CHF (congestive heart failure): (3) Atrial fibrillation: (4) LBBB (left bundle branch block): (5) Anticoagulation adequate: (6) Diabetes 1.5, managed as type 2: (7) CKD (chronic kidney disease): (8) COPD (chronic obstructive pulmonary disease): Qualifiers: COPD type: unspecified COPD Qualified Code(s): J44.9 - Chronic obstructive pulmonary disease, unspecified (9) MOSHE (obstructive sleep apnea): (10) Sinus pause: Plan Sinus pause, tachycardia, bradycardia, atrial fibrillation: Reviewed heart rate, reviewed vitals, CBC, CMP, magnesium, troponin series, noted mild elevation without peak, NT-proBNP, TSH, echocardiogram, noted EF 46%, moderate diffuse hypokinesia septum, basal inferior segments, grade 1 diastolic dysfunction. At risk of cardiogenic shock, Life-threatening arrhythmia. Continue telemetry monitoring. Discussed with him and family DC pacing if needed. Discussed with cardiology. Consideration of combination of beta-henrik and Cardizem causing pause, with Augmentin combined response. Monitor on telemetry cardiology to reassess, consider whether pacemaker may be required or not. Heparin drip for now off Eliquis in case requiring procedure. Risk of bleeding. PTT reviewed. Continue heparin drip for now. Monitor for any bleeding, repeat CBC. History of atrial fibrillation: Cardiology starting amiodarone. COPD this admission: Severe COPD exacerbation with dyspnea, cough, wheezing, purulent green sputum, continue oxygen support 3 L. Discussed with him treatment with antibiotic, steroid, doxycycline, prednisone for now. Continue breathing treatments, add ipratropium. Make level butyryl scheduled. Continue budesonide. Sputum culture collected, review. Reassess progress. At risk of hyperglycemia with steroid, diabetes. Reviewed Accu-Cheks. Continue insulin. Change diet to diabetic. ? History of CAD ? History of CHF ? History of type 2 diabetes mellitus ? Full code ? Heparin drip for DVT prophylaxis Attestations 2 Medical Necessity Statement*: Continue admission for assessment and management following prolonged pause, and gentleman with atrial fibrillation, possible tachybradycardia syndrome, possible need for pacemaker, and a gentleman on chronic anticoagulation, with severe exacerbation of COPD, with CAD, ischemic cardiomyopathy. Diagnoses Cardiomyopathy I42.9 CHF (congestive heart failure) I50.9 Atrial fibrillation I48.91 LBBB (left bundle branch block) I44.7 Anticoagulation adequate Z79.01 Diabetes 1.5, managed as type 2 E13.9 CKD (chronic kidney disease) N18.9 Chronic obstructive pulmonary disease, unspecified COPD type J44.9 COPD type: unspecified COPD MOSHE (obstructive sleep apnea) G47.33 Sinus pause I45.5
[2023-12-07] MEDS: predniSONE 20 mg Tablet PO (23:09)
[2023-12-07] MEDS: doxycycline 100 MG in sodium chloride 0.9% (plus) 100 ML IV (23:20)
[2023-12-08] VITALS (14 sets, daily range): BP systolic 102–175; BP diastolic 53–82; PULSE 52–103; RESP 17–23; TEMP 36.3–36.6; O2SAT 91–97
[2023-12-08 02:47] LABS: Basophils # 0.1 10^3/uL (0.0-0.1); Basophils % 0.6 %; Eosinophils # 0.1 10^3/uL (0.0-0.8); Eosinophils % 0.7 %; Hematocrit 43.2 % (37-53); Lymphocytes # 1.1 10^3/uL (0.8-4.8); Lymphocytes % 10.5 %; Mean Corpuscular HGB Conc 31.7 g/dL (30-55); Mean Corpuscular Hemoglobin 27.8 pg (27-33); Mean Corpuscular Volume 87.8 fl (82-101); Mean Platelet Volume 11.3 fL (7.4-10.4); Monocytes # 0.4 10^3/uL (0.2-0.9); Monocytes % 3.9 %; Neutrophils # 9.02 10^3/uL (1.8-7.7); Neutrophils % 83.7 %; Nucleated Red Blood Cells % 0 %; Platelet Count 183 10^3/cmm (157-399); Red Blood Count 4.92 10^6/uL (3.85-5.65); Red Cell Distribution Width 15.2 % (12.1-15.1); White Blood Count 10.79 10^3/uL (3.29-11.43)
[2023-12-08 03:08] LABS: Anion Gap 12.6 (5-19); Blood Urea Nitrogen 29 mg/dL (8-23); Calcium 8.7 mg/dL (8.5-10.5); Carbon Dioxide 28 mmol/L (22-29); Chloride 102 mmol/L (98-107); Creatinine Clr Calc Pharmacy 68.7465; Glucose 109 mg/dL (65-115); Magnesium 1.9 mg/dL (1.7-2.3); Osmolality Calculated 292 mOsm/kg (285-295); Partial Thromboplastin Time 98.3 SECONDS (23.9-36.7); Potassium 4.6 mmol/L (3.5-5.1); Sodium 138 mmol/L (136-145)
[2023-12-08 06:40] LABS: Glucose Point of Care 121 mg/dL (70-110)
[2023-12-08] MEDS: doxycycline 100 MG in sodium chloride 0.9% (plus) 100 ML IV (09:02)
[2023-12-08] MEDS: amiodarone 200 mg Tablet 400 MG PO ×2 (09:03→17:30)
[2023-12-08] MEDS: tamsulosin 0.4 mg Capsule 0.400000000000000022 MG PO (09:03)
[2023-12-08] MEDS: pantoprazole 40 mg SDV IVP (09:03)
[2023-12-08] MEDS: FUROsemide 20 mg Tablet PO (09:03)
[2023-12-08] MEDS: clopidogrel 75 mg Tablet PO (09:03)
[2023-12-08] MEDS: predniSONE 20 mg Tablet PO (09:03)
[2023-12-08] MEDS: amlodipine 10 mg Tablet PO (09:03)
[2023-12-08] MEDS: lisinopril 10 mg Tablet PO (09:03)
[2023-12-08] MEDS: potassium chloride ER 10 mEq Tablet 20 MEQ PO (09:04)
--- NOTE | 2023-12-08 09:15 | PC.CHAP ---
Pastoral Care Encounter/Spiritual Assessment Type of Contact [] Declined building rigger visit [] Patient/Family/Request visit [] Outpatient visit [] Follow-up visit [] Physician referral [] Code/Alert [x] Routine visit [] Staff referral [] Actively dying [] Patient sleeping [] Family support [] [] Out of room [] Palliative care [] [] Receiving care in room [] Pre-surgical visit [] Trauma [] Long length of stay [] ICU visit [] Other: Relational/Emotional Strength [] Patient feels connected with others/family/visitors/staff [] Distress [] Loneliness/isolation [] Abandonment Spirituality of Patient [] Person of Shi [] Attends Jewish of their Shi [] Believes in Prayer [] Reads Bible or Protestant materials [] There are Spiritual issues to be addressed Video Game Technician Interventions [] Prayer [] Active listening [] Non-anxious presence [] Spiritual/emotional support [] Crisis/trauma care [] Spiritual counseling [] Bereavement support [] Provided bereavement packet [] Provided Bible/devotional materials [] Provided toy/stuffed animal, coloring book to patient or family member [] Provided Communion [] Anointing/[place] [] Salvation [] Completed spiritual assessment [] Other: Impact on Illness or Injury [] Angry [] Fearful [] Anxious [] Often cries [] Exhaustion [] Unable to work [] Unable to attend religious [] Unable to walk/stand [] Unable to read [] Unable to drive [] Unable to eat/drink [] Unable to sleep [] Unable to be with family [] Patient intubated [] Other: Summary Time spent with patient 5 min
[2023-12-08] MEDS: levalbuterol 1.25 mg/3 mL Neb INHALATION ×2 (09:17→09:25)
[2023-12-08] MEDS: budesonide 0.5 mg/2 mL Neb INHALATION ×2 (09:18→20:53)
[2023-12-08] MEDS: ipratropium 0.5 mg/2.5 mL Neb INHALATION ×4 (09:25→20:53)
--- NOTE | 2023-12-08 10:43 | PC.NURSE ---
Provider was notified that patient had a epistaxis this morning. Provider ordered to adjust his heparin drip per protocol but do not give the bolus since PTT was 50.0.
--- NOTE | 2023-12-08 11:45 | PC.SOCIAL ---
IMM Update Pg. 2 of IMM updated and reviewed with patient, who verbalized understanding. Copy provided.
[2023-12-08 11:52] LABS: Glucose Point of Care 232 mg/dL (70-110)
[2023-12-08] MEDS: insulin lispro 100 unit/1 mL SUBCUT ×3 (12:07→20:50)
--- NOTE | 2023-12-08 12:42 | XRR_ITS ---
PROCEDURE INFORMATION: Exam: XR Chest Exam date and time: 12/08/2023 1:06 PM Age: 78 years old Clinical indication: Cardiovascular condition or disease; Congestive heart failure (chf); Cause unknown; Type unknown TECHNIQUE: Imaging protocol: Radiologic exam of the chest. Views: 1 view. COMPARISON: CT chest [facility] [id number] 05/19/2023 10:47 AM FINDINGS: Lungs: Bibasilar atelectasis/scarring, unchanged. No focal consolidation. Pleural spaces: No sizable pleural effusion or pneumothorax. Heart/Mediastinum: No cardiomegaly. Bones/joints: Unremarkable. XR/XR chest 1V portable [id number] IMPRESSION: No acute intrathoracic findings.
[2023-12-08] MEDS: FUROsemide 10 mg/mL SDV 4mL 40 MG IVP (13:07)
[2023-12-08] MEDS: cefTRIAXone 1,000 MG in sodium chloride 0.9% (plus) 50 ML 100 MG IV (13:08)
[2023-12-08] MEDS: heparin drip 25,000 UNIT/500 ML PREMIX 8 UNIT IV (13:26)
[2023-12-08] MEDS: losartan 50 mg Tablet 25 MG PO (13:29)
--- NOTE | 2023-12-08 13:49 | P.PN_ITS ---
Subjective 2 Subjective: Hospital course, labs appreciated. Seen with at bedside. Heart rate now running between 95-100 at rest going up to 120s to 130s on minimal exertion. Heart rate went up to 140 while he was having a sponge bath sitting in the bed. Patient did not complain of any chest pain but does complain of shortness of breath on laying down. He is sitting currently in bed with head of the bed elevated at 75 degrees. Blood pressure slightly elevated today. Currently on 3 L of oxygen supplementation. Complaining of nasal bleed while being on heparin drip. Vitals/I&O/Wt Last Vital Signs Temp 97.9 F 12/08/23 11:38 Pulse 103 H 12/08/23 11:38 Resp 22 H 12/08/23 11:38 BP 153/76 12/08/23 13:29 Pulse Ox 93 12/08/23 11:38 O2 Del Method Nasal Cannula 12/08/23 11:38 O2 Flow Rate 3 12/08/23 11:38 12/07/23 12/08/23 12/08/23 22:59 06:59 14:59 Intake Total 343.367 / 683.867 652.783 / 1336.650 774.717 / 774.717 Output Total 250 / 575 300 / 875 425 / 425 Balance 93.367 / 108.867 352.783 / 461.650 349.717 / 349.717 Weight last 48 hrs Weight 67.631 kg Weight 66.678 kg Weight 67.086 kg Weight 67.903 kg Physical Exam 2 Const: COMMON NORMALS: no acute distress, patient oriented x3 and alert G ENERAL APPEARANCE: cooperative ORIENTATION/CONSCIOUSNESS: Yes awake HENMT: COMMON NORMALS: normocephalic and oropharynx normal HEAD & SCALP: n ormocephalic Eye: COMMON NORMALS: Equal, round and reactive pupils present and EOMs intact bilaterally PUPIL: Yes Equal, round and reactive pupils present Neck/C-Spine: COMMON NORMALS: no JVD Resp: COMMON NORMALS: normal respiratory effort, No retractions, No use of accessory muscles and clear to auscultation bilaterally AUSCULTATION: clear to auscultation bilaterally and wheezes Cardio: COMMON NORMALS: no JVD, regular rate, regular rhythm, S1 normal heart sound present, S2 normal heart sound present and No murmurs present (Cardio) RATE: regular rate RHYTHM: regular rhythm and abnormal rhythm HEART SOUNDS: S1 normal heart sound present and S2 normal heart sound present GI: COMMON NORMALS: Normal to inspection, nondistended, normoactive bowel sounds present, Soft to palpation and non-tender PALPATION: Yes Soft to palpation Extremity: COMMON NORMALS: no joint enlargement, no calf tenderness and no pedal edema Neuro: COMMON NORMALS: patient oriented x3, CN's II-XII intact bilaterally and moves all extremities SENSORIUM/ORIENTATION: Yes alert Psych: COMMON NORMALS: mental status grossly normal Skin: COMMON NORMALS: no rashes or lesions noted GENERAL SKIN EXAM: no rashes or lesions noted Data 12/08/23 02:33 12/08/23 02:33 Micro: Microbiology 12/07/23 Unknown Gram Stain - Final Sputum - Expectorated Sputum Sputum Culture - Preliminary Gram Negative Rods A&P Assessment and plan (1) Sinus pause: (2) Atrial fibrillation: (3) Bradycardia: (4) Systolic congestive heart failure: (5) Ischemic cardiomyopathy: (6) CHF (congestive heart failure): (7) HTN (hypertension): Qualifiers: Hypertension type: essential hypertension Qualified Code(s): I10 - Essential (primary) hypertension (8) LBBB (left bundle branch block): (9) Anticoagulation adequate: (10) Diabetes 1.5, managed as type 2: (11) CKD (chronic kidney disease): (12) COPD (chronic obstructive pulmonary disease): Qualifiers: COPD type: unspecified COPD Qualified Code(s): J44.9 - Chronic obstructive pulmonary disease, unspecified (13) MOSHE (obstructive sleep apnea): Plan Atrial fibrillation along with sinus pause/bradycardia: Currently in A-fib with RVR: Developed sinus pause with bradycardia while being on metoprolol and Cardizem drip. Appreciate cardiology recommendations. Currently on amiodarone 400 mg twice daily. Developing RVR. Appreciate TSH levels. Start low-dose metoprolol 12.5 mg twice daily while monitoring closely for bradycardia or sinus pauses. Continue with heparin drip for anticoagulation. Takes Eliquis at home. Echocardiogram results shows EF of 46% with moderate diffuse hypokinesia of septum, basal inferior segments and grade 1 diastolic dysfunction. Congestive heart failure: Systolic and diastolic heart failure. Mildly decompensated. IV Lasix 40 mg one-time. Strict input charting, daily weights. Fluid restriction up to 15 cc. Shortness of breath: Most likely a combination of congestive heart failure and mild COPD exacerbation. Diuretic as above. Sputum culture growing gram-negative rods. Discontinue doxycycline start on IV ceftriaxone 1 g daily. Follow-up culture results and sensitivities. Continue with ipratropium and Xopenex every 6 hours along with Pulmicort twice daily. Supplementation keeping saturation over 90%. Hypertension: Goal blood pressure less than 140/90 mmHg. Blood pressure is elevated. Switch from lisinopril to losartan 25 mg daily. If needed will uptitrate losartan keeping goal blood pressures. Lasix as above for now. Epistaxis: Continue with heparin drip. Monitor PTT. Lanolin for nasal moisture. Check A1c, lipid panel, BNP, procalcitonin, iron panel, B12 levels. Full code Cardiac carb consistent diet Fluid restriction Heparin drip will be sufficient for DVT prophylaxis Protonix for PUD prophylaxis Attestations 2 Medical Necessity Statement*: Requires further hospitalization for management of A-fib with RVR in a patient who was admitted for sinus pauses bradycardia, congestive heart failure and COPD exacerbation Diagnoses Sinus pause I45.5 Atrial fibrillation I48.91 Bradycardia R00.1 Systolic congestive heart failure I50.20 Ischemic cardiomyopathy I25.5 CHF (congestive heart failure) I50.9 Essential hypertension I10 Hypertension type: essential hypertension LBBB (left bundle branch block) I44.7 Anticoagulation adequate Z79.01 Diabetes 1.5, managed as type 2 E13.9 CKD (chronic kidney disease) N18.9 Chronic obstructive pulmonary disease, unspecified COPD type J44.9 COPD type: unspecified COPD MOSHE (obstructive sleep apnea) G47.33
[2023-12-08 14:29] LABS: Estmated Average Glucose 123; Hemoglobin A1C 5.9 % (4.0-6.0)
[2023-12-08 14:41] LABS: NT Pro B Type Natriuretic Pept 377 pg/mL (0-450); Procalcitonin 0.12 ng/mL (0-0.5); Vitamin B12 622 pg/mL (232-1245)
[2023-12-08 14:52] LABS: Chol HDL Ratio 1.69 mg/dL (1.0-5.00); Cholesterol 150 mg/dL (0-200); HDL Cholesterol 89 mg/dL (60-100); Iron 41 ug/dL (59-158); LDL Cholesterol Calculated 50 mg/dL (50-129); Percent Saturation 18.3 % (20-50); Total Iron Binding Capacity 223 mcg/dl; Triglycerides 55 mg/dL (0-150); Unsaturated Iron Binding 182 ug/dL (112-347); VLDL Cholestrol Calculation 11 mg/dL (0-30)
[2023-12-08] MEDS: levalbuterol 0.63 mg/3 mL Neb 0.630000000000000004 MG INHALATION ×2 (14:57→20:53)
[2023-12-08] MEDS: metoprolol tartrate 25 mg Tablet 12.5 MG PO (14:59)
[2023-12-08 16:30] LABS: Glucose Point of Care 184 mg/dL (70-110)
--- NOTE | 2023-12-08 17:19 | PM.PN ---
Subjective Subjective: Patient is stays in sinus rhythm most of the times. No significant bradycardia or pauses. Apparently went into atrial fibrillation this morning. Was started on a small dose of metoprolol 12.5 mg p.o. twice daily. Medications: Medication Review Details: Current Medications Acetaminophen (Acetaminophen 325 Mg Tablet) 650 mg PO Q6H PRN PRN Reason: Mild/Mod Pain Or Temp >/= 101 Amiodarone HCl (Amiodarone 200 Mg Tablet) 400 mg PO BID [facility] Last Admin: 12/08/23 09:03 Dose: 400 mg Amlodipine Besylate (Amlodipine 10 Mg Tablet) 10 mg PO DAILY [facility] Last Admin: 12/08/23 09:03 Dose: 10 mg Atorvastatin Calcium (Atorvastatin 40 Mg Tablet) 40 mg PO BEDTIME [facility] Last Admin: 12/07/23 20:31 Dose: 40 mg Budesonide (Budesonide 0.5 Mg/2 Ml Neb) 0.5 mg INHALATION BID.RESPIRATORY JANNETTE Last Admin: 12/08/23 09:18 Dose: 0.5 mg Clopidogrel Bisulfate (Clopidogrel 75 Mg Tablet) 75 mg PO DAILY J[facility]NET[facility] Last Admin: 12/08/23 09:03 Dose: 75 mg Heparin Sodium (Porcine) (Heparin 5,000 Unit/Ml Inj 1 Ml) 0 unit IV PRN PRN; Protocol PRN Reason: Heparin weight-base protocol Last Admin: 12/06/23 23:39 Dose: 3,400 unit Heparin Sodium/Sodium Chloride (Heparin Drip) 25,000 unit in 500 mls @ 0 mls/hr IV .Q0M [facility]; Protocol Last Admin: 12/08/23 13:26 Dose: 5.89 unit/kg/hr, 8 mls/hr Dextrose (D5w) 500 mls @ 0 mls/hr IV ONCE PRN; Protocol PRN Reason: Adult Acute Hypoglycemia Prot Dextrose (D10w) 125 mls @ 750 mls/hr IV PRN PRN; Protocol PRN Reason: Adult Acute Hypoglycemia Nursing Protocol Dextrose (D10w) 250 mls @ 1,000 mls/hr IV PRN PRN; Protocol PRN Reason: Adult Acute Hypoglycemia Nursing Protocol Ceftriaxone Sodium 1,000 mg/ (Sodium Chloride) 50 mls @ 100 mls/hr IV Q24H [facility]; Protocol Last Infusion: 12/08/23 15:06 Dose: Infused Insulin Human Lispro (Insulin Lispro 100 Unit/1 Ml) 0 unit SUBCUT WM&BEDTIME [facility]ANNETTE; Protocol Ipratropium [place] (Ipratropium 0.5 Mg/2.5 Ml Neb) 0.5 mg INHALATION Q6H.RESP [facility] Last Admin: 12/08/23 14:57 Dose: 0.5 mg Levalbuterol HCl (Levalbuterol 0.63 Mg/3 Ml Neb) 0.63 mg INHALATION Q6H.RESP [facility] Last Admin: 12/08/23 14:57 Dose: 0.63 mg Lorazepam (Lorazepam 0.5 Mg Tablet) 0.5 mg PO BID PRN PRN Reason: Anxiety Losartan Potassium (Losartan 50 Mg Tablet) 25 mg PO DAILY [facility] Last Admin: 12/08/23 13:29 Dose: 25 mg Metoprolol Tartrate (Metoprolol Tartrate 25 Mg Tablet) 12.5 mg PO BID@0900,2100 [facility] Last Admin: 12/08/23 14:59 Dose: 12.5 mg Morphine Sulfate (Morphine 4 Mg/Ml Sdv 1 Ml) 1 mg IVP Q4H PRN PRN Reason: SEVERE PAIN Naloxone HCl (Naloxone 0.4 Mg/Ml Sdv) 0.1 mg IVP Q2M PRN PRN Reason: OPIATERV Non-Formulary Medication (Arformoterol) 2 ml INHALATION BID [facility] Last Admin: 12/08/23 09:39 Dose: Not Given Ondansetron HCl (Ondansetron 2 Mg/Ml Sdv 2 Ml) 4 mg IVP Q8H PRN PRN Reason: vomiting, or N/V if npo Pantoprazole Sodium (Pantoprazole 40 Mg Sdv) 40 mg IVP DAILY [facility] Last Admin: 12/08/23 09:03 Dose: 40 mg Potassium Chloride (Potassium Chloride Er 10 Meq Tablet) 20 meq PO DAILY@07 [facility] Last Admin: 12/08/23 09:04 Dose: 20 meq Prednisone (Prednisone 20 Mg Tablet) 20 mg PO DAILY [facility] Last Admin: 12/08/23 09:03 Dose: 20 mg Ropinirole HCl (Ropinirole 0.25 Mg Tablet) 0.25 mg PO BEDTIME [facility] Last Admin: 12/07/23 20:31 Dose: 0.25 mg Tamsulosin HCl (Tamsulosin 0.4 Mg Capsule) 0.4 mg PO DAILY [facility] Last Admin: 12/08/23 09:03 Dose: 0.4 mg Vitals/I&O/Wt Last Vital Signs Temp 97.4 F L 12/08/23 16:00 Pulse 77 12/08/23 16:00 Resp 21 H 12/08/23 16:00 BP 106/64 12/08/23 16:00 Pulse Ox 95 12/08/23 16:00 O2 Del Method Nasal Cannula 12/08/23 16:00 O2 Flow Rate 3 12/08/23 16:00 12/08/23 12/08/23 12/08/23 06:59 14:59 22:59 Intake Total 652.783 / 1336.650 774.717 / 774.717 50 / 824.717 Output Total 300 / 875 425 / 425 675 / 1100 Balance 352.783 / 461.650 349.717 / 349.717 -625 / -275.283 Weight last 48 hrs Weight 149 lb 1.6 oz Weight 147 lb Weight 147 lb 14.4 oz Weight 149 lb 11.2 oz Physical Exam Narrative: GENERAL: The patient is alert and oriented times three. Not in any acute distress. HEENT: No significant pallor, icterus or lymphadenopathy.Oral cavity: There are no mucous membrane lesions. NECK: Trachea appears to be central. No masses noted. No JVD or thyromegaly appreciated. Carotid bruit on the left side RESPIRATORY: Chest is symmetrical. No intercostals muscle retraction or any accessory muscle activation. There is no chest wall tenderness. Breath sounds are heard bilaterally. No rales or rhonchi heard. No evidence of any consolidation. BREASTS: Deferred. HEART: The heart sounds are normal. No S3 or S4. Short systolic murmur in the left sternal border. No diastolic murmurs. No pericardial rub ABDOMEN: No vessel pulsations or distention. No tenderness. No organomegaly appreciated. Bowel sounds are normally heard. : Deferred. RECTAL: Deferred. LYMPHATIC: No lymphadenopathy noted in the neck. EXTREMITIES: No edema or cyanosis. No clubbing. MUSCULOSKELETAL: No acute joint deformities or swelling SKIN: There are no significant rashes or ecchymosis NEUROPSYCHIATRIC: The patient is alert and oriented x3. Appears to be in a good mood. No tremors or rigidity noted. Data 12/08/23 02:33 12/08/23 02:33 Micro: Microbiology 12/07/23 Unknown Gram Stain - Final Sputum - Expectorated Sputum Sputum Culture - Preliminary Gram Negative Rods A&P Assessment and plan (1) Bradycardia: Patient has not had any recurrence of bradycardia or any pauses on the telemetry so far. He seems to be tolerating the amiodarone well (2) Intermittent atrial fibrillation: Patient remained in atrial fibrillation with rapid ventricular rate this morning. So it was decided to start him on metoprolol 12.5 mg p.o. twice daily. (3) Ischemic cardiomyopathy: Patient fraction was 40% last year. Currently it seems to be around 46%. Need to optimize his medical treatment with the GDMT (4) COPD (chronic obstructive pulmonary disease): May continue on the current management Qualifiers: COPD type: unspecified COPD Qualified Code(s): J44.9 - Chronic obstructive pulmonary disease, unspecified (5) MOSHE (obstructive sleep apnea): Continue on the current management. (6) Carotid stenosis, bilateral: Patient has a high-grade stenosis in the left ICA. Being evaluated for surgical intervention by Dr. Wyman. Plan May continue the close monitoring. Will do an EKG in the morning. If he continues to remain stable, may be discharged home tomorrow Attestations Medical Necessity Statement*: Possible discharge home tomorrow Coding Level of Care Code Acute Code for g Fwd Diagnoses Bradycardia R00.1 Intermittent atrial fibrillation I48.0 Ischemic cardiomyopathy I25.5 Chronic obstructive pulmonary disease, unspecified COPD type J44.9 COPD type: unspecified COPD MOSHE (obstructive sleep apnea) G47.33 Carotid stenosis, bilateral I65.23
[2023-12-08 17:30] LABS: Partial Thromboplastin Time 59.2 SECONDS (23.9-36.7)
[2023-12-08 20:37] LABS: Glucose Point of Care 199 mg/dL (70-110)
[2023-12-08] MEDS: ropinirole 0.25 mg Tablet PO (20:50)
[2023-12-08] MEDS: atorvastatin 40 mg Tablet PO (20:50)
[2023-12-09] VITALS (11 sets, daily range): BP systolic 93–171; BP diastolic 48–78; PULSE 53–74; RESP 16–23; TEMP 36.4–36.6; O2SAT 94–97
[2023-12-09] MEDS: ipratropium 0.5 mg/2.5 mL Neb INHALATION ×3 (02:37→13:25)
[2023-12-09] MEDS: levalbuterol 0.63 mg/3 mL Neb 0.630000000000000004 MG INHALATION ×3 (02:37→13:25)
[2023-12-09 04:24] LABS: Basophils # 0.1 10^3/uL (0.0-0.1); Basophils % 0.6 %; Eosinophils # 0.1 10^3/uL (0.0-0.8); Eosinophils % 1.1 %; Hematocrit 42.9 % (37-53); Lymphocytes # 1.8 10^3/uL (0.8-4.8); Lymphocytes % 19.4 %; Mean Corpuscular Hemoglobin 27.5 pg (27-33); Mean Corpuscular Volume 88.6 fl (82-101); Mean Platelet Volume 11.3 fL (7.4-10.4); Monocytes # 0.9 10^3/uL (0.2-0.9); Monocytes % 10.3 %; Neutrophils # 6.11 10^3/uL (1.8-7.7); Neutrophils % 67.7 %; Nucleated Red Blood Cells % 0 %; Platelet Count 187 10^3/cmm (157-399); Red Blood Count 4.84 10^6/uL (3.85-5.65); Red Cell Distribution Width 15.1 % (12.1-15.1); White Blood Count 9.02 10^3/uL (3.29-11.43)
[2023-12-09 04:44] LABS: Partial Thromboplastin Time 117.8 SECONDS (23.9-36.7)
[2023-12-09 04:57] LABS: Alanine Aminotransferase 14 U/L (0-41); Albumin Level 3.3 g/dL (3.5-5.2); Alkaline Phosphatase 79 U/L (40-130); Anion Gap 14.7 (5-19); Aspartate Amino Transferase 14 U/L (0-40); Blood Urea Nitrogen 42 mg/dL (8-23); Calcium 8.9 mg/dL (8.5-10.5); Carbon Dioxide 29 mmol/L (22-29); Chloride 99 mmol/L (98-107); Globulin 2.8 g/dL (1.3-4.6); Glucose 117 mg/dL (65-115); Osmolality Calculated 298 mOsm/kg (285-295); Potassium 4.7 mmol/L (3.5-5.1); Sodium 138 mmol/L (136-145); Total Bilirubin 0.2 mg/dL (0.15-1.2); Total Protein 6.1 g/dL (6.6-8.7)
[2023-12-09 05:01] LABS: Creatinine Clr Calc Pharmacy 47.8462
[2023-12-09 05:35] LABS: Folate Level 8.6 ng/mL (4.5-32.2)
[2023-12-09] MEDS: potassium chloride ER 10 mEq Tablet 20 MEQ PO (06:01)
[2023-12-09 06:25] LABS: Glucose Point of Care 109 mg/dL (70-110)
[2023-12-09] MEDS: budesonide 0.5 mg/2 mL Neb INHALATION (07:35)
[2023-12-09] MEDS: metoprolol tartrate 25 mg Tablet 12.5 MG PO (07:57)
[2023-12-09] MEDS: clopidogrel 75 mg Tablet PO (07:58)
[2023-12-09] MEDS: tamsulosin 0.4 mg Capsule 0.400000000000000022 MG PO (07:58)
[2023-12-09] MEDS: losartan 50 mg Tablet 25 MG PO (07:58)
[2023-12-09] MEDS: amiodarone 200 mg Tablet 400 MG PO (07:58)
[2023-12-09] MEDS: amlodipine 10 mg Tablet PO (07:59)
[2023-12-09] MEDS: predniSONE 20 mg Tablet PO (07:59)
[2023-12-09] MEDS: pantoprazole 40 mg SDV IVP (07:59)
--- NOTE | 2023-12-09 09:45 | ECG_ITS ---
[facility] Test Date: 2023-12-09 Pat Name: Jonathan Sultana Department: Room: 104 Gender: Male Rf Technician: : 1945 Requested By: Florian Bob Order Number: [id number] Alexey MD: Ghulam Aguilar M.D. Measurements Intervals [place] Rate: 55 P: 76 AK: 198 QRS: 37 QRSD: 145 T: 120 QT: 455 QTc: 438 Interpretive Statements SINUS BRADYCARDIA WITH OCCASIONAL SUPRAVENTRICULAR PREMATURE COMPLEXES LEFT BUNDLE BRANCH BLOCK [120+ ms QRS DURATION, 80+ ms Q/S IN V1/V2, 85+ ms R IN I/aVL/V5/V6] Compared to ECG 12/07/2023 04:57:38 Left bundle-branch block now present Sinus rhythm no longer present Ventricular premature complex(es) no longer present Myocardial infarct finding no longer present Electronically Signed On 12-09-2023 17:50:42 CDT by Ghulam Aguilar M.D. [id number]
--- NOTE | 2023-12-09 11:01 | PC.NURSE ---
Patient is on heparin drip. Patient is coughing up gross blood. Informed Dr Liao and received order to stop Heparin drip and order lanolin for nose. RBVO
[2023-12-09 12:07] LABS: Glucose Point of Care 123 mg/dL (70-110)
[2023-12-09 12:08] LABS: Partial Thromboplastin Time 47.1 SECONDS (23.9-36.7)
--- NOTE | 2023-12-09 12:10 | P.PN_ITS ---
Subjective 2 Subjective: The patient is remaining in sinus rhythm. Seems to be tolerating the small dose of the metoprolol. The EKG showed sinus bradycardia with PACs. Nonspecific IVCD. Medications: Medication Review Details: Current Medications Acetaminophen (Acetaminophen 325 Mg Tablet) 650 mg PO Q6H PRN PRN Reason: Mild/Mod Pain Or Temp >/= 101 Amiodarone HCl (Amiodarone 200 Mg Tablet) 400 mg PO BID [facility] Last Admin: 12/09/23 07:58 Dose: 400 mg Amlodipine Besylate (Amlodipine 10 Mg Tablet) 10 mg PO DAILY [facility] Last Admin: 12/09/23 07:59 Dose: 10 mg Atorvastatin Calcium (Atorvastatin 40 Mg Tablet) 40 mg PO BEDTIME [facility] Last Admin: 12/08/23 20:50 Dose: 40 mg Budesonide (Budesonide 0.5 Mg/2 Ml Neb) 0.5 mg INHALATION BID.RESPIRATORY JANNETTE Last Admin: 12/09/23 07:35 Dose: 0.5 mg Clopidogrel Bisulfate (Clopidogrel 75 Mg Tablet) 75 mg PO DAILY [facility] Last Admin: 12/09/23 07:58 Dose: 75 mg Dextrose (D5w) 500 mls @ 0 mls/hr IV ONCE PRN; Protocol PRN Reason: Adult Acute Hypoglycemia Prot Dextrose (D10w) 125 mls @ 750 mls/hr IV PRN PRN; Protocol PRN Reason: Adult Acute Hypoglycemia Nursing Protocol Dextrose (D10w) 250 mls @ 1,000 mls/hr IV PRN PRN; Protocol PRN Reason: Adult Acute Hypoglycemia Nursing Protocol Ceftriaxone Sodium 1,000 mg/ (Sodium Chloride) 50 mls @ 100 mls/hr IV Q24H [facility]; Protocol Last Infusion: 12/08/23 15:06 Dose: Infused Insulin Human Lispro (Insulin Lispro 100 Unit/1 Ml) 0 unit SUBCUT WM&BEDTIME [facility]NETTE; Protocol Last Admin: 12/09/23 09:01 Dose: Not Given Ipratropium [place] (Ipratropium 0.5 Mg/2.5 Ml Neb) 0.5 mg INHALATION Q6H.RESP [facility] Last Admin: 12/09/23 07:35 Dose: 0.5 mg Lanolin (Lanolin Oint 7 Gm) 1 applic TOPICAL PRN PRN PRN Reason: DRYNESS Levalbuterol HCl (Levalbuterol 0.63 Mg/3 Ml Neb) 0.63 mg INHALATION Q6H.RESP [facility] Last Admin: 12/09/23 07:35 Dose: 0.63 mg Lorazepam (Lorazepam 0.5 Mg Tablet) 0.5 mg PO BID PRN PRN Reason: Anxiety Losartan Potassium (Losartan 50 Mg Tablet) 25 mg PO DAILY [facility] Last Admin: 12/09/23 07:58 Dose: 25 mg Morphine Sulfate (Morphine 4 Mg/Ml Sdv 1 Ml) 1 mg IVP Q4H PRN PRN Reason: SEVERE PAIN Naloxone HCl (Naloxone 0.4 Mg/Ml Sdv) 0.1 mg IVP Q2M PRN PRN Reason: OPIATERV Non-Formulary Medication (Arformoterol) 2 ml INHALATION BID [facility] Last Admin: 12/09/23 07:59 Dose: Not Given Ondansetron HCl (Ondansetron 2 Mg/Ml Sdv 2 Ml) 4 mg IVP Q8H PRN PRN Reason: vomiting, or N/V if npo Pantoprazole Sodium (Pantoprazole 40 Mg Sdv) 40 mg IVP DAILY [facility] Last Admin: 12/09/23 07:59 Dose: 40 mg Potassium Chloride (Potassium Chloride Er 10 Meq Tablet) 20 meq PO DAILY@07 [facility] Last Admin: 12/09/23 06:01 Dose: 20 meq Prednisone (Prednisone 20 Mg Tablet) 20 mg PO DAILY [facility] Last Admin: 12/09/23 07:59 Dose: 20 mg Ropinirole HCl (Ropinirole 0.25 Mg Tablet) 0.25 mg PO BEDTIME [facility] Last Admin: 12/08/23 20:50 Dose: 0.25 mg Tamsulosin HCl (Tamsulosin 0.4 Mg Capsule) 0.4 mg PO DAILY [facility] Last Admin: 12/09/23 07:58 Dose: 0.4 mg Vitals/I&O/Wt Last Vital Signs Temp 97.7 F 12/09/23 12:00 Pulse 63 12/09/23 12:00 Resp 17 12/09/23 12:00 BP 171/78 12/09/23 12:00 Pulse Ox 97 12/09/23 12:00 O2 Del Method Nasal Cannula 12/09/23 12:00 O2 Flow Rate 3 12/09/23 07:36 12/08/23 12/09/23 12/09/23 22:59 06:59 14:59 Intake Total 324.533 / 1099.250 91.2 / 1190.450 257.75 / 257.75 Output Total 850 / 1275 250 / 250 Balance -525.467 / -175.750 91.2 / -84.550 7.75 / 7.75 Weight last 48 hrs Weight 149 lb Weight 149 lb 1.6 oz Physical Exam 2 Narrative: GENERAL: The patient is alert and oriented times three. Not in any acute distress. HEENT: No significant pallor, icterus or lymphadenopathy.Oral cavity: There are no mucous membrane lesions. NECK: Trachea appears to be central. No masses noted. No JVD or thyromegaly appreciated. Carotid bruit on the left side RESPIRATORY: Chest is symmetrical. No intercostals muscle retraction or any accessory muscle activation. There is no chest wall tenderness. Breath sounds are heard bilaterally. No rales or rhonchi heard. No evidence of any consolidation. BREASTS: Deferred. HEART: The heart sounds are normal. No S3 or S4. Short systolic murmur in the left sternal border. No diastolic murmurs. No pericardial rub ABDOMEN: No vessel pulsations or distention. No tenderness. No organomegaly appreciated. Bowel sounds are normally heard. : Deferred. RECTAL: Deferred. LYMPHATIC: No lymphadenopathy noted in the neck. EXTREMITIES: No edema or cyanosis. No clubbing. MUSCULOSKELETAL: No acute joint deformities or swelling SKIN: There are no significant rashes or ecchymosis NEUROPSYCHIATRIC: The patient is alert and oriented x3. Appears to be in a good mood. No tremors or rigidity noted. Data 12/09/23 03:55 12/09/23 03:55 Other Labs: Laboratory Last Values WBC 9.02 10^3/uL (3.29-11.43) 12/09/23 03:55 RBC 4.84 10^6/uL (3.85-5.65) 12/09/23 03:55 Hgb 13.30 g/dL (11.27-16.99) 12/09/23 03:55 Hct 42.9 % (37-53) 12/09/23 03:55 MCV 88.6 fl (82-101) 12/09/23 03:55 MCH 27.5 pg (27-33) 12/09/23 03:55 MCHC 31.0 g/dL (30-55) 12/09/23 03:55 RDW 15.1 % (12.1-15.1) 12/09/23 03:55 Plt Count 187 10^3/cmm (157-399) 12/09/23 03:55 MPV 11.3 fL (7.4-10.4) H 12/09/23 03:55 Neut % (Auto) 67.7 % 12/09/23 03:55 Lymph % (Auto) 19.4 % 12/09/23 03:55 [place] % (Auto) 10.3 % 12/09/23 03:55 Eos % (Auto) 1.1 % 12/09/23 03:55 Baso % (Auto) 0.6 % 12/09/23 03:55 Neut # (Auto) 6.11 10^3/uL (1.8-7.7) 12/09/23 03:55 Lymph # (Auto) 1.8 10^3/uL (0.8-4.8) 12/09/23 03:55 [place] # (Auto) 0.9 10^3/uL (0.2-0.9) 12/09/23 03:55 Eos # (Auto) 0.1 10^3/uL (0.0-0.8) 12/09/23 03:55 Baso # (Auto) 0.1 10^3/uL (0.0-0.1) 12/09/23 03:55 Nucleated RBC % (auto) 0 % 12/09/23 03:55 Nucleated RBCs # 0.0 /100WBC 12/09/23 03:55 APTT 117.8 SECONDS (23.9-36.7) H D 12/09/23 03:55 Sodium 138 mmol/L (136-145) 12/09/23 03:55 Potassium 4.7 mmol/L (3.5-5.1) 12/09/23 03:55 Chloride 99 mmol/L (98-107) 12/09/23 03:55 Carbon Dioxide 29 mmol/L (22-29) 12/09/23 03:55 Anion Gap 14.7 (5-19) 12/09/23 03:55 BUN 42 mg/dL (8-23) H 12/09/23 03:55 Creatinine 1.3 mg/dL (0.7-1.2) H 12/09/23 03:55 GFR Calculation Not Reportable 12/09/23 03:55 Glucose 117 mg/dL (65-115) H 12/09/23 03:55 POC Glucose 123 mg/dL (70-110) H 12/09/23 11:11 Estimat Average Glucose 123 12/08/23 02:33 Hemoglobin A1c 5.9 % (4.0-6.0) 12/08/23 02:33 Calculated Osmolality 298 mOsm/kg (285-295) H 12/09/23 03:55 Calcium 8.9 mg/dL (8.5-10.5) 12/09/23 03:55 Magnesium 2.0 mg/dL (1.7-2.3) 12/09/23 03:55 Iron 41 ug/dL (59-158) L 12/08/23 02:33 TIBC 223 mcg/dl 12/08/23 02:33 % Saturation 18.3 % (20-50) L 12/08/23 02:33 Unsat Iron Binding 182 ug/dL (112-347) 12/08/23 02:33 Total Bilirubin 0.2 mg/dL (0.15-1.2) 12/09/23 03:55 AST 14 U/L (0-40) 12/09/23 03:55 ALT 14 U/L (0-41) 12/09/23 03:55 Alkaline Phosphatase 79 U/L (40-130) 12/09/23 03:55 Creatine Kinase 53 U/L (39-308) 12/07/23 01:02 Troponin T Baseline 26 ng/L (0-15) H 12/07/23 01:02 Troponin T 120 Minute 28.91 ng/L (0-15) H 12/07/23 03:38 Delta Troponin T 2.91 ABS# (0-10) 12/07/23 03:38 Troponin T Hi Sens 6Hr 24.90 ng/L (0-15) H 12/07/23 06:56 Troponin T Hi Sens 6Hr Delta -1.10 ng/L (0-12) L 12/07/23 06:56 NT-Pro-B Natriuret Pep 377 pg/mL (0-450) 12/08/23 02:33 Total Protein 6.1 g/dL (6.6-8.7) L 12/09/23 03:55 Albumin 3.3 g/dL (3.5-5.2) L 12/09/23 03:55 Globulin 2.8 g/dL (1.3-4.6) 12/09/23 03:55 Triglycerides 55 mg/dL (0-150) 12/08/23 02:33 Cholesterol 150 mg/dL (0-200) 12/08/23 02:33 LDL Cholesterol, Calc 50 mg/dL (50-129) 12/08/23 02:33 Total VLDL Cholesterol 11 mg/dL (0-30) 12/08/23 02:33 HDL Cholesterol 89 mg/dL (60-100) 12/08/23 02:33 Cholesterol/HDL Ratio 1.69 mg/dL (1.0-5.00) 12/08/23 02:33 Vitamin B12 622 pg/mL (232-1245) 12/08/23 02:33 Folate 8.6 ng/mL (4.5-32.2) 12/09/23 03:55 Procalcitonin 0.12 ng/mL (0-0.5) 12/08/23 02:33 TSH 0.88 uIU/mL (0.27-4.20) 12/07/23 01:02 Micro: Microbiology 12/07/23 Unknown Gram Stain - Final Sputum - Expectorated Sputum Sputum Culture - Preliminary Gram Negative Rods A&P Assessment and plan (1) Bradycardia: Patient has no significant bradycardia or any pauses on the telemetry so far. He seems to be tolerating the amiodarone well (2) Intermittent atrial fibrillation: Currently is in sinus rhythm/bradycardia with a heart rate in the upper 50s (3) Ischemic cardiomyopathy: Patient fraction was 40% last year. Currently it seems to be around 46%. Need to optimize his medical treatment with the GDMT (4) COPD (chronic obstructive pulmonary disease): May continue on the current management Qualifiers: COPD type: unspecified COPD Qualified Code(s): J44.9 - Chronic obstructive pulmonary disease, unspecified (5) MOSHE (obstructive sleep apnea): Continue on the current management. (6) Carotid stenosis, bilateral: Patient has a high-grade stenosis in the left ICA. Being evaluated for surgical intervention by Dr. Wyman. Plan Since the patient remained stable with no new symptoms, may be discharged home today. The dose of the amiodarone may be adjusted as an outpatient. May take the metoprolol on a as needed basis Attestations 2 Medical Necessity Statement*: Patient may be discharged home from a cardiac standpoint Coding Level of Care Code 18310 Diagnoses Bradycardia R00.1 Intermittent atrial fibrillation I48.0 Ischemic cardiomyopathy I25.5 Chronic obstructive pulmonary disease, unspecified COPD type J44.9 COPD type: unspecified COPD MOSHE (obstructive sleep apnea) G47.33 Carotid stenosis, bilateral I65.23
--- NOTE | 2023-12-09 12:44 | PM.DCS ---
Discharge Providers Date of Admission: 12/06/23 21:44 Date of Discharge: December 09, 2023 Attending Provider at Admission: Suri Ervin MD Attending Provider at Discharge: John Liao MD Consults: Cardiology: Dr. Bob Primary Care Provider: Dorie Nichols NP Diagnoses at Discharge Discharge Diagnosis (1) Bradycardia: Status: Acute (2) Intermittent atrial fibrillation: Status: Acute (3) Ischemic cardiomyopathy: Status: Acute (4) COPD (chronic obstructive pulmonary disease): Status: Acute Qualifiers: COPD type: unspecified COPD Qualified Code(s): J44.9 - Chronic obstructive pulmonary disease, unspecified (5) MOSHE (obstructive sleep apnea): Status: Acute Permanent problem details: Bipap 09/03 (6) Carotid stenosis, bilateral: Status: Chronic Reason for Visit Reason for Visit: afib Brief History: History as per HPI: Jonathan Sultana is a 78 year old male CAD, left bundle branch block, diastolic CHF, COPD, diastolic CHF, atrial fibrillation on Eliquis, CKD history of carotid artery stenosis, hyperlipidemia, type 2 diabetes mellitus, obstructive sleep apnea, hypertension, who has been complaining of shortness of breath and chest palpitations early this morning. Patient tells me that earlier this morning he had development of shortness of breath, with chest palpitations, feeling lightheaded, dizzy, presyncopal symptoms, but denies passing out, shortness of breath with exertion, no fevers, no cough, he presented to [facility], he was diagnosed with A-fib with RVR, heart rates 130s to 150s, was given diltiazem push, heart rates improved, plans on discharging him home, upon discharge patient had sinus pauses/asystole lasting up to 7 seconds, patient was symptomatic lightheaded and dizzy, which subsequently resolved, no documented loss of pulse, or loss of consciousness, patient was transferred to [facility] for further evaluation, currently is alert oriented x 3, following all commands, heart rates in the 70s, A-fib, blood pressure 182/91 pulse 71, respiratory 23 temperature 98, he is on 4 L, Hospital Course Hospital Course Patient was admitted to the hospital further evaluation and management of atrial fibrillation with sinus pauses along with episodes of tachycardia and bradycardia. Cardiology was consulted with the possibility of pacemaker. He was switched over from Eliquis to heparin drip. It is believed his sinus pauses most likely in the setting of dual rate limiting medications with oral metoprolol and IV Cardizem drip which was started at outside hospital. He was transitioned over to oral amiodarone and both metoprolol and Cardizem were withheld. His heart rate has been improving gradually and has been stable on oral amiodarone. Echocardiogram was done which showed an EF of 45% with moderate diffuse hypokinesia of septum, basal inferior wall segment along with a grade 1 diastolic dysfunction. His hospitalization was for dizziness unremarkable. He did have mild COPD exacerbation for which she was started on oral steroids along with inhalation treatment. He has been discharged in hemodynamically stable condition with event monitor on oral amiodarone 400 mg twice daily for next 5 days followed by 200 mg twice daily for a week and then 200 mg daily. He is also advised to take metoprolol 12.5 mg daily as needed for a heart rate persistently elevated over 100 bpm for 1 hour. He has been told if heart rate does not improve to below 100 bpm 1 hour after taking metoprolol he should come to the ER. Here dose of lisinopril has been increased to 20 mg daily. He is to follow-up with cardiology team within next 3 weeks and his primary care provider within next 1 week. Physical Exam Const: COMMON NORMALS: no acute distress, patient oriented x3 and alert GENERAL APPEARANCE: cooperative ORIENTATION/CONSCIOUSNESS: Yes awake HENMT: COMMON NORMALS: normocephalic and oropharynx normal HEAD & SCALP: normocephalic Eye: COMMON NORMALS: Equal, round and reactive pupils present and EOMs intact bilaterally PUPIL: Yes Equal, round and reactive pupils present Neck/C-Spine: COMMON NORMALS: no JVD Resp: COMMON NORMALS: normal respiratory effort, No retractions, No use of accessory muscles and clear to auscultation bilaterally AUSCULTATION: clear to auscultation bilaterally and wheezes Cardio: COMMON NORMALS: no JVD, regular rate, regular rhythm, S1 normal heart sound present, S2 normal heart sound present and No murmurs present (Cardio) RATE: regular rate RHYTHM: regular rhythm and abnormal rhythm HEART SOUNDS: S1 normal heart sound present and S2 normal heart sound present GI: COMMON NORMALS: Normal to inspection, nondistended, normoactive bowel sounds present, Soft to palpation and non-tender PALPATION: Yes Soft to palpation Extremity: COMMON NORMALS: no joint enlargement, no calf tenderness and no pedal edema Neuro: COMMON NORMALS: patient oriented x3, CN's II-XII intact bilaterally and moves all extremities SENSORIUM/ORIENTATION: Yes alert Psych: COMMON NORMALS: mental status grossly normal Skin: COMMON NORMALS: no rashes or lesions noted GENERAL SKIN EXAM: no rashes or lesions noted Discharge Data Studies Completed and Pending Completed Studies During Hospitalization Category Date Time Status XR chest 1V portable [id number] Routine Exams 12/08/23 12:42 Completed CV. echo complete* [id number] Routine Ultrasound 12/07/23 06:00 Completed Pending at discharge Category Date Time Status Complete Blood Count w/Auto AM LABS Lab 12/10/23 04:00 Ordered MAG [Magnesium] AM LABS Lab 12/10/23 04:00 Ordered MAG [Magnesium] AM LABS Lab 12/11/23 04:00 Ordered Sputum Culture and Gram Stain Routine Lab 12/07/23 Results Radiology Impressions Chest X-Ray 12/08/23 12:42 IMPRESSION: No acute intrathoracic findings. Laboratory Results WBC 9.02 10^3/uL (3.29-11.43) 12/09/23 03:55 RBC 4.84 10^6/uL (3.85-5.65) 12/09/23 03:55 Hgb 13.30 g/dL (11.27-16.99) 12/09/23 03:55 Hct 42.9 % (37-53) 12/09/23 03:55 MCV 88.6 fl (82-101) 12/09/23 03:55 MCH 27.5 pg (27-33) 12/09/23 03:55 MCHC 31.0 g/dL (30-55) 12/09/23 03:55 RDW 15.1 % (12.1-15.1) 12/09/23 03:55 Plt Count 187 10^3/cmm (157-399) 12/09/23 03:55 MPV 11.3 fL (7.4-10.4) H 12/09/23 03:55 Neut % (Auto) 67.7 % 12/09/23 03:55 Lymph % (Auto) 19.4 % 12/09/23 03:55 [place] % (Auto) 10.3 % 12/09/23 03:55 Eos % (Auto) 1.1 % 12/09/23 03:55 Baso % (Auto) 0.6 % 12/09/23 03:55 Neut # (Auto) 6.11 10^3/uL (1.8-7.7) 12/09/23 03:55 Lymph # (Auto) 1.8 10^3/uL (0.8-4.8) 12/09/23 03:55 [place] # (Auto) 0.9 10^3/uL (0.2-0.9) 12/09/23 03:55 Eos # (Auto) 0.1 10^3/uL (0.0-0.8) 12/09/23 03:55 Baso # (Auto) 0.1 10^3/uL (0.0-0.1) 12/09/23 03:55 Nucleated RBC % (auto) 0 % 12/09/23 03:55 Nucleated RBCs # 0.0 /100WBC 12/09/23 03:55 APTT 47.1 SECONDS (23.9-36.7) H D 12/09/23 10:50 Sodium 138 mmol/L (136-145) 12/09/23 03:55 Potassium 4.7 mmol/L (3.5-5.1) 12/09/23 03:55 Chloride 99 mmol/L (98-107) 12/09/23 03:55 Carbon Dioxide 29 mmol/L (22-29) 12/09/23 03:55 Anion Gap 14.7 (5-19) 12/09/23 03:55 BUN 42 mg/dL (8-23) H 12/09/23 03:55 Creatinine 1.3 mg/dL (0.7-1.2) H 12/09/23 03:55 GFR Calculation Not Reportable 12/09/23 03:55 Glucose 117 mg/dL (65-115) H 12/09/23 03:55 POC Glucose 123 mg/dL (70-110) H 12/09/23 11:11 Estimat Average Glucose 123 12/08/23 02:33 Hemoglobin A1c 5.9 % (4.0-6.0) 12/08/23 02:33 Calculated Osmolality 298 mOsm/kg (285-295) H 12/09/23 03:55 Calcium 8.9 mg/dL (8.5-10.5) 12/09/23 03:55 Magnesium 2.0 mg/dL (1.7-2.3) 12/09/23 03:55 Iron 41 ug/dL (59-158) L 12/08/23 02:33 TIBC 223 mcg/dl 12/08/23 02:33 % Saturation 18.3 % (20-50) L 12/08/23 02:33 Unsat Iron Binding 182 ug/dL (112-347) 12/08/23 02:33 Total Bilirubin 0.2 mg/dL (0.15-1.2) 12/09/23 03:55 AST 14 U/L (0-40) 12/09/23 03:55 ALT 14 U/L (0-41) 12/09/23 03:55 Alkaline Phosphatase 79 U/L (40-130) 12/09/23 03:55 Creatine Kinase 53 U/L (39-308) 12/07/23 01:02 Troponin T Baseline 26 ng/L (0-15) H 12/07/23 01:02 Troponin T 120 Minute 28.91 ng/L (0-15) H 12/07/23 03:38 Delta Troponin T 2.91 ABS# (0-10) 12/07/23 03:38 Troponin T Hi Sens 6Hr 24.90 ng/L (0-15) H 12/07/23 06:56 Troponin T Hi Sens 6Hr Delta -1.10 ng/L (0-12) L 12/07/23 06:56 NT-Pro-B Natriuret Pep 377 pg/mL (0-450) 12/08/23 02:33 Total Protein 6.1 g/dL (6.6-8.7) L 12/09/23 03:55 Albumin 3.3 g/dL (3.5-5.2) L 12/09/23 03:55 Globulin 2.8 g/dL (1.3-4.6) 12/09/23 03:55 Triglycerides 55 mg/dL (0-150) 12/08/23 02:33 Cholesterol 150 mg/dL (0-200) 12/08/23 02:33 LDL Cholesterol, Calc 50 mg/dL (50-129) 12/08/23 02:33 Total VLDL Cholesterol 11 mg/dL (0-30) 12/08/23 02:33 HDL Cholesterol 89 mg/dL (60-100) 12/08/23 02:33 Cholesterol/HDL Ratio 1.69 mg/dL (1.0-5.00) 12/08/23 02:33 Vitamin B12 622 pg/mL (232-1245) 12/08/23 02:33 Folate 8.6 ng/mL (4.5-32.2) 12/09/23 03:55 Procalcitonin 0.12 ng/mL (0-0.5) 12/08/23 02:33 TSH 0.88 uIU/mL (0.27-4.20) 12/07/23 01:02 Vitals Last Vital Signs Temp 97.7 F 12/09/23 12:00 Pulse 63 12/09/23 12:00 Resp 17 12/09/23 12:00 BP 171/78 12/09/23 12:00 Pulse Ox 97 12/09/23 12:00 O2 Del Method Nasal Cannula 12/09/23 12:00 O2 Flow Rate 3 12/09/23 07:36 Discharge Plan Discharge Patient Disposition: Home Condition: Stable Prescriptions: New prednisone 20 mg Tablet 20 mg PO DAILY Qty: 5 0RF amiodarone 200 mg tablet 200 mg PO DAILY Qty: 60 0RF Rx Instructions: 400 mg twice daily for next 5 days followed by 200 mg twice daily for 1 week and 200 mg daily metoprolol tartrate 25 mg tablet 12.5 mg PO DAILY PRN (Reason: hr more than 100 bpm) Qty: 30 0RF Continued atorvastatin 20 mg tablet 40 mg PO BEDTIME alendronate [Fosamax] 70 mg tablet 70 mg PO Q7D Rx Instructions: ON SUNDAYS Jardiance 10 mg tablet 10 mg PO DAILY lorazepam 0.5 mg tablet 0.5 mg PO BID PRN (Reason: Anxiety) furosemide [Lasix] 20 mg tablet 20 mg PO DAILY albuterol sulfate 90 mcg/actuation HFA aerosol inhaler 2 puff inhalation Q6H PRN (Reason: Shortness Of Breath Or Wheezing) Yupelri 175 mcg/3 mL solution for nebulization 175 mcg inhalation DAILY Qty: 90 3RF budesonide [Pulmicort] 0.25 mg/2 mL suspension for nebulization 0.5 mg inhalation BID Qty: 10 3RF arformoterol 15 mcg/2 mL solution for nebulization 2 ml inhalation BID 30 Days Qty: 120 4RF Eliquis 5 mg tablet 5 mg PO BID@, Qty: 180 3RF levalbuterol tartrate [Xopenex HFA] 45 mcg/actuation HFA aerosol inhaler 1 puff INHALATION Q6H PRN (Reason: Shortness Of Breath) Qty: 15 5RF (DME) Oxymizer Pendant 6L with exertion See Rx Instructions .Route .MEDSUPPLY Qty: 1 0RF Rx Instructions: Suuplemental oxygen- 6L with Oymizer during exertion and 4L/NC at rest. potassium chloride 20 mEq Tablet Extended Release 20 meq PO DAILY@07 tamsulosin 0.4 mg capsule 0.4 mg PO DAILY calcium carbonate-vitamin D3 [Oyster Shell Calcium-Vit D3] 500 mg(1,250mg) -200 unit tablet 500 tab PO DAILY@07 roflumilast [Daliresp] 500 mcg Tablet 500 mcg PO DAILY@07 ropinirole 0.25 mg Tablet 0.25 mg PO BEDTIME Rx Instructions: if symptoms persist - may increase cholecalciferol (vitamin D3) 75 mcg (3,000 unit) tablet 25 mcg PO TID clopidogrel 75 mg Tablet 75 mg PO DAILY 30 Days Qty: 30 2RF sodium chloride 3 % solution for nebulization 4 ml inhalation DAILY guaifenesin 400 mg Tablet 400 mg PO BID Changed lisinopril 10 mg tablet 20 mg PO DAILY Qty: 30 0RF Discontinued glimepiride 1 mg tablet 1 mg PO DAILY metoprolol succinate 50 mg tablet extended release 24 hr 50 mg PO DAILY Discharge Orders: Discharge Order (Routine); Ordered 12/09/23 Ordered By: John Liao Other Ambulatory Orders: MCT/Event Monitor 21 Days (Routine) Timeframe: 1 Week Facility: [facility] - Location: Radiology Ordered By: John Liao Referrals: Dorie Nichols NP [Primary Care Provider] - 12/11/23 9:15 am Olga May FNP [Nurse Practitioner] - 3 weeks Discharge Diet: Cardiac Discharge Activity: Resume usual activity and Increase activity as tolerated Patient Instructions: Metoprolol (By mouth) (Lopressor, Toprol XL), Prednisone (By mouth) (predniSONE Intensol, Prednicot, Deltasone, Suzan), Amiodarone (By mouth) (Cordarone, Pacerone), A-fib (Atrial Fibrillation) (DC), Bradycardia (DC), Hypertension (DC), CHF Stoplight, Opioid Safety Activity Restrictions/Additional Instructions: Do not take metoprolol anymore. Safe to take amiodarone 400 mg twice daily for next 7 days followed by 200 mg twice daily for 1 week and then 200 mg daily. Dose of lisinopril has been increased to 20 mg daily You can take metoprolol 12.5 mg daily as needed for heart rate persistently over 100 bpm for more than 1 hour. If the heart rate does not come below 100 bpm even after 30 minutes of oral metoprolol please come to the ER. You will be fitted with event monitor. Please follow-up with Olga May/nurse practitioner from cardiology team within next 1 month and with your primary care provider within next 1 week. Discharge Attestations Time Spent in Discharge Care*: greater than 30 min Specific Discharge Activities: educating patient, educating and/or supporting family/caregiver, discussing with pcp/other providers, discussing with ed case manager/social workers/dc planners, documenting/other paperwork and evaluating patient/reviewing data Status at Discharge: Cognitive status at discharge: cognitively intact, Behavioral status at discharge: cooperative, Functional status at discharge: independent ambulation, Overall status at discharge: patient is progressing back to baseline Quality Metrics Clinical Quality Measures [ No reported AMI, CVA or VTE this stay] Coding Level of Care Code 77093 Total time (in minutes) for Discharge: 60 Diagnoses Bradycardia R00.1 Intermittent atrial fibrillation I48.0 Ischemic cardiomyopathy I25.5 Chronic obstructive pulmonary disease, unspecified COPD type J44.9 COPD type: unspecified COPD MOSHE (obstructive sleep apnea) G47.33 Carotid stenosis, bilateral I65.23
--- NOTE | 2023-12-09 14:03 | PC.NURSE ---
Patient discharged to home. Instruction given regarding medication changes, follow-up appt and need for cardiac event monitor. Patient and daughter verbalized complete understanding. IVs removed. Patient taken by wheelchair to private vehicle. O2 brought from home by spouse. Patient denies other pains or needs. No distresses observed.
== END 2023-12-09 14:05 | disposition home or self-care (01) | DRG 309 ==
PROVIDERS: Family Medicine; Internal Medicine; Admitting Provider Internal Medicine; PCP Nurse Practitioner Family; Visit Provider Student in an Organized Health Care Education/Training Program
DX: I48.20 Chronic atrial fibrillation, unspecified (principal); I13.0 Hypertensive heart and chronic kidney disease with heart failure and stage 1 through stage 4 chronic kidney disease, or unspecified chronic kidney disease; J44.1 Chronic obstructive pulmonary disease with (acute) exacerbation; I50.32 Chronic diastolic (congestive) heart failure; Z79.01 Long term (current) use of anticoagulants; I45.5 Other specified heart block; R00.1 Bradycardia, unspecified; R00.0 Tachycardia, unspecified; E11.22 Type 2 diabetes mellitus with diabetic chronic kidney disease; N18.9 Chronic kidney disease, unspecified; Z79.84 Long term (current) use of oral hypoglycemic drugs; Z87.891 Personal history of nicotine dependence; I65.23 Occlusion and stenosis of bilateral carotid arteries; B96.5 Pseudomonas (aeruginosa) (mallei) (pseudomallei) as the cause of diseases classified elsewhere; I25.10 Atherosclerotic heart disease of native coronary artery without angina pectoris; I25.5 Ischemic cardiomyopathy; K21.9 Gastro-esophageal reflux disease without esophagitis; N40.0 Benign prostatic hyperplasia without lower urinary tract symptoms; Z79.02 Long term (current) use of antithrombotics/antiplatelets; G25.81 Restless legs syndrome; E78.5 Hyperlipidemia, unspecified; R04.0 Epistaxis
CPT/HCPCS: 36415; 36416; 71045; 80048; 80053; 80061; 82550; 82607; 82746; 82962; 83036; 83540; 83550; 83735; 83880; 84145; 84443; 84484; 85025; 85049; 85730; 87070; 87077; 87186; 87205; 93005; 93306; 94640; 94664; 96372; 96376; C9113; J0696; J1644; J1815; J1940; J3490; J7512; J7614; J7626; J7644

== ENCOUNTER → 2023-12-18 13:52 | Outpatient (BNVA) | payer OTHER, SELFPAY | PROVIDERS: PCP Nurse Practitioner Family; Visit Provider Internal Medicine Cardiovascular Disease | DX: I48.91 Unspecified atrial fibrillation | CPT/HCPCS: 93005; 99214 ==

== ENCOUNTER 2024-01-20 10:56 | Emergency (ER) | payer OTHER, SELFPAY ==
--- NOTE | 2024-01-20 11:00 | XR_ITS ---
WS: [id number] Exam: XR chest 1V portable [id number] Date/Time of Exam: 01/20/2024 11:00 AM Reason For Exam: sob Comparison 12/08/2023. The lungs are fully expanded. Chronic bibasal plaque atelectasis. Hyperinflation. Cardiomediastinal s ilhouette is unremarkable. Bony structures are intact. XR/XR chest 1V portable [id number] IMPRESSION: 1. Pulmonary hyperinflation but no acute process. 2. Chronic bibasal plaque atelectasis.
--- NOTE | 2024-01-20 11:02 | ECG_ITS ---
[facility] Test Date: 2024-01-20 Pat Name: Jonathan Sultana Department: Room: Gender: Male Political Aide: : 1945 Requested By: Nayeli Hernandez Order Number: [id number] Alexey MD: Florian Bob M.D. Measurements Intervals [place] Rate: 87 P: 85 MA: 203 QRS: 62 QRSD: 133 T: 169 QT: 372 QTc: 448 Interpretive Statements SINUS RHYTHM INTRAVENTRICULAR CONDUCTION DELAY [130+ ms QRS DURATION] ANTEROSEPTAL MYOCARDIAL INFARCTION , OF INDETERMINATE AGE [40+ ms Q WAVE IN V1-V4] Compared to ECG 12/18/2023 13:57:20 Intraventricular conduction delay now present Myocardial infarct finding now present Left bundle-branch block no longer present Electronically Signed On 01-20-2024 23:47:24 CDT by Florian Bob M.D. [id number]
[2024-01-20 11:03] VITALS: BP 127/74; PULSE 86; RESP 18; TEMP 36.4; O2SAT 100
[2024-01-20 11:54] LABS: Basophils # 0.1 10^3/uL (0.0-0.1); Basophils % 0.8 %; Eosinophils # 0.1 10^3/uL (0.0-0.8); Eosinophils % 0.9 %; Lymphocytes # 1.8 10^3/uL (0.8-4.8); Mean Corpuscular HGB Conc 31.3 g/dL (30-55); Mean Corpuscular Hemoglobin 27.5 pg (27-33); Mean Corpuscular Volume 87.7 fl (82-101); Monocytes # 1.3 10^3/uL (0.2-0.9); Monocytes % 12.1 %; Neutrophils # 7.24 10^3/uL (1.8-7.7); Neutrophils % 67.9 %; Nucleated Red Blood Cells % 0 %; Platelet Count 212 10^3/cmm (157-399); Red Blood Count 5.13 10^6/uL (3.85-5.65); Red Cell Distribution Width 15.6 % (12.1-15.1); White Blood Count 10.68 10^3/uL (3.29-11.43)
[2024-01-20 12:14] LABS: Troponin(5th) Baseline 23 ng/L (0-15)
[2024-01-20 13:00] LABS: Alanine Aminotransferase 22 U/L (0-41); Albumin Level 3.9 g/dL (3.5-5.2); Alkaline Phosphatase 99 U/L (40-130); Anion Gap 17.9 (5-19); Aspartate Amino Transferase 23 U/L (0-40); Blood Urea Nitrogen 29 mg/dL (8-23); Calcium 9.1 mg/dL (8.5-10.5); Carbon Dioxide 27 mmol/L (22-29); Chloride 101 mmol/L (98-107); Creatinine Clr Calc Pharmacy 43.7479; Globulin 2.6 g/dL (1.3-4.6); Glucose 88 mg/dL (65-115); NT Pro B Type Natriuretic Pept 626 pg/mL (0-450); Osmolality Calculated 299 mOsm/kg (285-295); Potassium 3.9 mmol/L (3.5-5.1); Sodium 142 mmol/L (136-145); Total Bilirubin 0.3 mg/dL (0.15-1.2); Total Protein 6.5 g/dL (6.6-8.7)
--- NOTE | 2024-01-20 13:43 | ECG_ITS ---
[facility] Test Date: 2024-01-20 Pat Name: Jonathan Sultana Department: Room: Gender: Male [place] Operator: : 1945 Requested By: Nayeli Hernandez Order Number: [id number] Alexey MD: Florian Bob M.D. Measurements Intervals [place] Rate: 87 P: 83 IN: 187 QRS: 52 QRSD: 148 T: 101 QT: 402 QTc: 486 Interpretive Statements SINUS RHYTHM LEFT BUNDLE BRANCH BLOCK [120+ ms QRS DURATION, 80+ ms Q/S IN V1/V2, 85+ ms R IN I/aVL/V5/V6] Compared to ECG 01/20/2024 11:02:18 Left bundle-branch block now present Intraventricular conduction delay no longer present Myocardial infarct finding no longer present Electronically Signed On 01-22-2024 0:12:36 CDT by Florian Bob M.D. [id number]
[2024-01-20 13:56] VITALS: BP 167/70; PULSE 79; O2SAT 97
--- NOTE | 2024-01-20 14:09 | PC.PHAR ---
PT IS [facility] FOR MED LIST 01/20/24 2:08PM
--- NOTE | 2024-01-20 14:33 | PC.NURSE ---
PATIENT BEING DC, PER VERBAL ORDER FROM DR. JUNG, CHANGED MORPHINE ORDER TO HYDROCODONE
--- NOTE | 2024-01-20 14:34 | W.ED.WEAKNES ---
HPI - Weakness General: Chief complaint: Weakness Stated complaint: Dr. Bob sent over for A-Fib Time Seen by Provider: 01/20/24 13:48 Source: patient Mode of arrival: ambulatory Limitations: no limitations History of Present Illness: 78-year-old male states that over the last 4 days has been having some generalized weakness states he had some slight palpitations as well. He denies any severe dyspnea he is on oxygen at baseline his pulse ox here is in the 90s on his baseline oxygen he denies any chest pain denies any cough or fever. Associated symptoms: Denies chest pain, chills, fever(s), headache(s), nausea or vomiting Review of Systems Const: Reports: malaise; Denies: fever(s), chills, body aches or change in appetite ENMT: Denies: throat pain or dental pain Card: Denies: chest pain Resp: Denies: dyspnea GI: Denies: abdominal pain, nausea, vomiting or diarrhea Musc: Denies: neck pain or back pain Skin/Breast: Denies: rash Neuro: Denies: headache(s) PFSH ED PFSH: Medical History Cyst of kidney, acquired Systolic congestive heart failure LBBB (left bundle branch block) Diastolic CHF, acute on chronic COPD exacerbation Pneumonia Pulmonary emphysema with fibrosis of lung Osteoporosis alendronate BPH (benign prostatic hyperplasia) On home oxygen therapy 4L History of 2019 novel coronavirus disease (COVID-19) (~07/2020) Heart failure with preserved ejection fraction History of nonmelanoma skin cancer Ventricular ectopy Fracture of second metatarsal bone RLS (restless legs syndrome) GERD (gastroesophageal reflux disease) Anticoagulation adequate Eliquis Atrial fibrillation COPD (chronic obstructive pulmonary disease) ASHD (arteriosclerotic heart disease) CKD (chronic kidney disease) HTN (hypertension) MOSHE (obstructive sleep apnea) Bipap 09/03 Hyperlipidemia Diabetes 1.5, managed as type 2 Carotid stenosis, bilateral Surgical History S/P carpal tunnel release S/P sinus surgery S/P carotid endarterectomy Family History Mother , AGE 64 Diabetes Cancer Father , AGE 62 CAD (coronary artery disease) Social History Smoking and tobacco/nicotine status: former use of tobacco/nicotine Quit status (tobacco/nicotine): has quit using Year quit tobacco: 1999 [id number] Second hand smoke exposure: No Alcohol intake: never Substance/Drug Use: never Lives independently: Yes Household members: spouse Housing: House Marital status: service: Yes branch: [employer] Current occupational status: retired Pets and animals: No Do you think of yourself as: Straight/Heterosexual Current gender identity: Male Physical Exam Const: COMMON NORMALS: patient oriented x3 HENMT: COMMON NORMALS: normocephalic and atraumatic HEAD & SCALP: normocephalic and atraumatic Eye: COMMON NORMALS: Equal, round and reactive pupils present and EOMs intact bilaterally PUPIL: Yes Equal, round and reactive pupils present Neck/C-Spine: COMMON NORMALS: full ROM and supple Chest: COMMONS NORMALS: normal inspection of the chest and normal palpation of entire chest wall Resp: COMMON NORMALS: normal respiratory effort, No retractions, No use of accessory muscles and clear to auscultation bilaterally AUSCULTATION: clear to auscultation bilaterally Cardio: COMMON NORMALS: regular rate, regular rhythm and No murmurs present (Cardio) RATE: regular rate RHYTHM: regular rhythm GI: COMMON NORMALS: Normal to inspection, nondistended, normoactive bowel sounds present, Soft to palpation, non-tender and no masses PALPATION: Yes Soft to palpation Extremity: COMMON NORMALS: normal to inspection and full ROM Neuro: COMMON NORMALS: patient oriented x3, moves all extremities and no focal motor deficits Psych: COMMON NORMALS: mental status grossly normal, Normal thought process present and cooperative THOUGHT PROCESS: Normal thought process present Skin: COMMON NORMALS: no rashes or lesions noted and no wounds GENERAL SKIN EXAM: no rashes or lesions noted Course Vital Signs: Vital signs: Vital Signs Temperature 97.5 F L 01/20/24 11:03 Pulse Rate 79 01/20/24 13:56 Respiratory Rate 18 01/20/24 11:03 Blood Pressure 167/70 01/20/24 13:56 Pulse Oximetry 97 01/20/24 13:56 Oxygen Delivery Me thod Nasal Cannula 01/20/24 13:56 Oxygen Flow Rate 4 01/20/24 13:56 MDM - Weakness Medical Decision Making Patient presents here with generalized weakness blood work here is all normal he is well-appearing here I feel he stable for discharge he is follow-up with PCP return if worsening he understands agrees plan Medical Records I reviewed the patient's medical records. Lab Data I reviewed the patient's lab results. 01/20/24 11:43 01/20/24 11:43 Radiology Impressions Chest X-Ray 01/20/24 11:00 IMPRESSION: 1. Pulmonary hyperinflation but no acute process. 2. Chronic bibasal plaque atelectasis. Laboratory Results WBC 10.68 10^3/uL (3.29-11.43) 01/20/24 11:43 RBC 5.13 10^6/uL (3.85-5.65) 01/20/24 11:43 Hgb 14.10 g/dL (11.27-16.99) 01/20/24 11:43 Hct 45.0 % (37-53) 01/20/24 11:43 MCV 87.7 fl (82-101) 01/20/24 11:43 MCH 27.5 pg (27-33) 01/20/24 11:43 MCHC 31.3 g/dL (30-55) 01/20/24 11:43 RDW 15.6 % (12.1-15.1) H 01/20/24 11:43 Plt Count 212 10^3/cmm (157-399) 01/20/24 11:43 MPV 11.0 fL (7.4-10.4) H 01/20/24 11:43 Neut % (Auto) 67.9 % 01/20/24 11:43 Lymph % (Auto) 17.0 % 01/20/24 11:43 [place] % (Auto) 12.1 % 01/20/24 11:43 Eos % (Auto) 0.9 % 01/20/24 11:43 Baso % (Auto) 0.8 % 01/20/24 11:43 Neut # (Auto) 7.24 10^3/uL (1.8-7.7) 01/20/24 11:43 Lymph # (Auto) 1.8 10^3/uL (0.8-4.8) 01/20/24 11:43 [place] # (Auto) 1.3 10^3/uL (0.2-0.9) H 01/20/24 11:43 Eos # (Auto) 0.1 10^3/uL (0.0-0.8) 01/20/24 11:43 Baso # (Auto) 0.1 10^3/uL (0.0-0.1) 01/20/24 11:43 Nucleated RBC % (auto) 0 % 01/20/24 11:43 Nucleated RBCs # 0.0 /100WBC 01/20/24 11:43 Sodium 142 mmol/L (136-145) 01/20/24 11:43 Potassium 3.9 mmol/L (3.5-5.1) 01/20/24 11:43 Chloride 101 mmol/L (98-107) 01/20/24 11:43 Carbon Dioxide 27 mmol/L (22-29) 01/20/24 11:43 Anion Gap 17.9 (5-19) 01/20/24 11:43 BUN 29 mg/dL (8-23) H 01/20/24 11:43 Creatinine 1.4 mg/dL (0.7-1.2) H 01/20/24 11:43 GFR Calculation Not Reportable 01/20/24 11:43 Glucose 88 mg/dL (65-115) 01/20/24 11:43 Calculated Osmolality 299 mOsm/kg (285-295) H 01/20/24 11:43 Calcium 9.1 mg/dL (8.5-10.5) 01/20/24 11:43 Total Bilirubin 0.3 mg/dL (0.15-1.2) 01/20/24 11:43 AST 23 U/L (0-40) 01/20/24 11:43 ALT 22 U/L (0-41) 01/20/24 11:43 Alkaline Phosphatase 99 U/L (40-130) 01/20/24 11:43 Troponin T Baseline 23 ng/L (0-15) H 01/20/24 11:43 Troponin T 120 Minute 21.60 ng/L (0-15) H 01/20/24 12:30 Delta Troponin T -1.40 ABS# (0-10) L 01/20/24 12:30 NT-Pro-B Natriuret Pep 626 pg/mL (0-450) H 01/20/24 11:43 Total Protein 6.5 g/dL (6.6-8.7) L 01/20/24 11:43 Albumin 3.9 g/dL (3.5-5.2) 01/20/24 11:43 Globulin 2.6 g/dL (1.3-4.6) 01/20/24 11:43 All radiology interpretation(s) finalized by discharge Discharge Plan Discharge Patient Disposition: Home Clinical Impression: Generalized weakness Condition: Stable Prescriptions: No Action atorvastatin 20 mg tablet 40 mg PO BEDTIME alendronate [Fosamax] 70 mg tablet 70 mg PO Q7D Rx Instructions: ON SUNDAYS Jardiance 10 mg tablet 10 mg PO DAILY lorazepam 0.5 mg tablet 0.5 mg PO BID PRN (Reason: Anxiety) furosemide [Lasix] 20 mg tablet 20 mg PO DAILY albuterol sulfate 90 mcg/actuation HFA aerosol inhaler 2 puff inhalation Q6H PRN (Reason: Shortness Of Breath Or Wheezing) Yupelri 175 mcg/3 mL solution for nebulization 175 mcg inhalation DAILY Qty: 90 3RF budesonide [Pulmicort] 0.25 mg/2 mL suspension for nebulization 0.5 mg inhalation BID Qty: 10 3RF arformoterol 15 mcg/2 mL solution for nebulization 2 ml inhalation BID 30 Days Qty: 120 4RF Eliquis 5 mg tablet 5 mg PO BID@07,21 Qty: 180 3RF levalbuterol tartrate [Xopenex HFA] 45 mcg/actuation HFA aerosol inhaler 1 puff INHALATION Q6H PRN (Reason: Shortness Of Breath) Qty: 15 5RF (DME) Oxymizer Pendant 6L with exertion See Rx Instructions .Route .MEDSUPPLY Qty: 1 0RF Rx Instructions: Suuplemental oxygen- 6L with Oymizer during exertion and 4L/NC at rest. potassium chloride 20 mEq Tablet Extended Release 20 meq PO DAILY@07 tamsulosin 0.4 mg capsule 0.4 mg PO DAILY calcium carbonate-vitamin D3 [Oyster Shell Calcium-Vit D3] 500 mg(1,250mg) -200 unit tablet 500 tab PO DAILY@07 roflumilast [Daliresp] 500 mcg Tablet 500 mcg PO DAILY@07 ropinirole 0.25 mg Tablet 0.25 mg PO BEDTIME Rx Instructions: if symptoms persist - may increase cholecalciferol (vitamin D3) 75 mcg (3,000 unit) tablet 25 mcg PO TID clopidogrel 75 mg Tablet 75 mg PO DAILY 30 Days Qty: 30 2RF sodium chloride 3 % solution for nebulization 4 ml inhalation DAILY prednisone 20 mg Tablet 20 mg PO DAILY Qty: 5 0RF amiodarone 200 mg tablet 200 mg PO DAILY Qty: 60 0RF Rx Instructions: 400 mg twice daily for next 5 days followed by 200 mg twice daily for 1 week and 200 mg daily metoprolol tartrate 25 mg tablet 12.5 mg PO DAILY PRN (Reason: hr more than 100 bpm) Qty: 30 0RF lisinopril 10 mg tablet 20 mg PO DAILY Qty: 30 0RF guaifenesin 400 mg Tablet 400 mg PO BID Discharge Orders: Discharge ED (Routine); Ordered 01/20/24 Ordered By: Milka Perdomo Referrals: Dorie Nichols NP [Primary Care Provider] - 1-3 days Discharge Diet: Advance as tolerated Discharge Activity: Resume usual activity Patient Instructions: Heart Palpitations (ED), Weakness (ED) Coding Level of Care Code ED Retoucher Photoengraving for Robert Garcia
[2024-01-20] MEDS: HYDROcodone-acetaminophen 5-325 mg Tablet 1 TAB PO (14:39)
[2024-01-20 14:49] VITALS: BP 167/70; PULSE 79; RESP 18; TEMP 36.4; O2SAT 97
== END 2024-01-20 14:50 | disposition home or self-care (01) ==
PROVIDERS: Physician Assistant; Emergency Provider Emergency Medicine; PCP Nurse Practitioner Family
DX: R53.1 Weakness (principal); Z79.01 Long term (current) use of anticoagulants; Z79.02 Long term (current) use of antithrombotics/antiplatelets; Z87.891 Personal history of nicotine dependence; E13.22 Other specified diabetes mellitus with diabetic chronic kidney disease; I13.0 Hypertensive heart and chronic kidney disease with heart failure and stage 1 through stage 4 chronic kidney disease, or unspecified chronic kidney disease; N18.9 Chronic kidney disease, unspecified; I50.9 Heart failure, unspecified; J44.9 Chronic obstructive pulmonary disease, unspecified; Z99.81 Dependence on supplemental oxygen; E78.5 Hyperlipidemia, unspecified
CPT/HCPCS: 36415; 71045; 80053; 83880; 84484; 85025; 93005; 99285

== ENCOUNTER → 2024-04-12 12:28 | Outpatient (BNVA) | payer OTHER, SELFPAY | PROVIDERS: PCP Nurse Practitioner Family; Visit Provider Internal Medicine Cardiovascular Disease | DX: R00.1 Bradycardia, unspecified (principal); I42.9 Cardiomyopathy, unspecified; J44.9 Chronic obstructive pulmonary disease, unspecified; N18.9 Chronic kidney disease, unspecified; I48.0 Paroxysmal atrial fibrillation; Z87.891 Personal history of nicotine dependence | CPT/HCPCS: 99214 ==

== ENCOUNTER → 2024-04-14 13:05 | Outpatient (BNVA) | payer OTHER, SELFPAY | PROVIDERS: PCP Nurse Practitioner Family; Visit Provider Internal Medicine Cardiovascular Disease | DX: I48.0 Paroxysmal atrial fibrillation (principal); I44.7 Left bundle-branch block, unspecified; I10 Essential (primary) hypertension; Z98.890 Other specified postprocedural states; I42.8 Other cardiomyopathies; Z79.01 Long term (current) use of anticoagulants; I45.5 Other specified heart block; Z98.61 Coronary angioplasty status | CPT/HCPCS: 99214 ==

== ENCOUNTER 2024-05-06 07:19 | Outpatient (CLI) | payer OTHER, SELFPAY ==
[2024-05-06 07:29] VITALS: BMI 20.2
--- NOTE | 2024-05-06 07:30 | NMCV_ITS ---
NM nora perf SPECT r/s* [id number] Jonathan Sultana Age: 78 Gender: M : 1945 Exam Date: 05/06/2024 08:33 Ordering Phys: Florian Bob MD ([email or web address]) Technologist: GERARD Fay Exam Location: [facility] Indications: cp STRESS TEST [facility] IMAGE PROTOCOL Rest/Stress 1 Lexiscan Day Radiopharmaceutical Dose (mCi) Administration Site Administered by Rest: Tc-99m 10.7 IV Lona Dhillon WINDING MACHINE OPERATOR Sestamibi Stress:Tc-99m 32.8 IV Lona Dhillon, WINDING MACHINE OPERATOR Sestamibi Rest: 06-May-2024 60 Discovery 630 Stress: 06-May-2024 30 Discovery 630 0.4mg Lexiscan. Images obtained in supine and prone position. SPECT RESULTS Technical Quality: Good Raw Data Analysis: Normal Image Corrections: No attenuation or motion correction applied Summed Stress Score: 5 Summed Rest Score: 6 Summed Difference Score: 1 PERFUSION FINDINGS Moderate area of moderately decreased tracer uptake involving the mid inferior, apical inferior and mid inferoseptal's segments. Some reversibility was noted at the mid inferior segment. FUNCTIONAL RESULTS (calculated via Gated SPECT) Stress Image LV EF (%): 51 Stress EDV (mL):94 TID: 0.74 Stress ESV (mL):46 FUNCTIONAL FINDINGS: Segmental wall motion analysis revealing no gross wall motion abnormalities IMPRESSIONS 1. Myocardial perfusion imaging revealing moderate area of moderately decreased tracer uptake involving the inferior and inferoseptal regions with some reversibility in the mid inferior region suggesting myocardial scarring in the distribution of the right coronary artery with a small area of karley- infarction ischemia 2. Normal LV ejection fraction of 51%. 3. LV wall motion analysis revealing no gross wall motion abnormalities. 4. Normal LV volume Compared to the previous study from 09/16/2022, there may not be significant change Dr Florian Bob MD FACC (Electronically Signed) Final Date: 07 May 2024 13:40 S
--- NOTE | 2024-05-06 07:30 | ECG_ITS ---
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 Interpretive Statements Lung unchanged pre/post procedure; Intraprocedure shortess of breath; Symptoms resoled by discharge PROCEDURE: At the baseline, the EKG revealed normal sinus rhythm with nonspecific IVCD. The baseline heart was 83 bpm with a blood pressue of 199/84 mm of Hg Lexiscan was infused over a period of 20 seconds. A total of 0.4 milligrams of Lexiscan was infused. The stress phase was continued for a total of 5 minutes. Heart rate at the end of the stress phase was 94 bpm with a blood pressure 156/69 mm of Hg. The EKG at the peak infusion revealed no significant changes. Sestamibi was injected 20 seconds after the Lexiscan infusion. Heart rate at the end of the recovery phase was 91 bpm with a blood pressure of 159/64 mm of Hg. patient was found to have a few PVCs on the monitor during the recovery phase CONCLUSION: 1. No significant EKG changes with the LexiScan infusion 2. No LexiScan induced chest pain. Occasional PVCs were noted on the monitor during the recovery phase 3. Normal blood pressure and heart rate response 4. Sestamibi/sestamibi perfusion scan pending; see separate report. Electronically Signed On 05-09-2024 19:46:50 CDT by Florian Bob M.D. [email or web address]
[2024-05-06] MEDS: regadenoson 0.4 Mg/5 ml Syringe IVP (09:11)
[2024-05-06 09:22] VITALS: BP 159/64; PULSE 92
== END 2024-05-06 07:20 | disposition home or self-care (01) ==
PROVIDERS: PCP Nurse Practitioner Family; Visit Provider Internal Medicine Cardiovascular Disease
DX: Z98.61 Coronary angioplasty status (principal); R94.39 Abnormal result of other cardiovascular function study
CPT/HCPCS: 36415; 78452; 93017; 96375; A9500; J2785

== ENCOUNTER 2024-06-10 17:09 | Inpatient (IN) | payer OTHER, SELFPAY ==
[2024-06-10] VITALS (10 sets, daily range): BP systolic 108–210; BP diastolic 61–104; PULSE 82–101; RESP 16–20; TEMP 36.7; O2SAT 97–100; BMI 19.8
[2024-06-10 18:08] LABS: Basophils # 0.1 10^3/uL (0.0-0.1); Eosinophils # 0.3 10^3/uL (0.0-0.8); Eosinophils % 3.6 %; Hematocrit 39.8 % (37-53); Lymphocytes # 1.5 10^3/uL (0.8-4.8); Lymphocytes % 17.8 %; Mean Corpuscular HGB Conc 32.2 g/dL (30-55); Mean Corpuscular Hemoglobin 27.7 pg (27-33); Mean Corpuscular Volume 86.1 fl (82-101); Mean Platelet Volume 11.3 fL (7.4-10.4); Monocytes # 0.9 10^3/uL (0.2-0.9); Monocytes % 10.8 %; Neutrophils % 66.2 %; Nucleated Red Blood Cells % 0 %; Platelet Count 176 10^3/cmm (157-399); Red Blood Count 4.62 10^6/uL (3.85-5.65); Red Cell Distribution Width 15.1 % (12.1-15.1); White Blood Count 8.15 10^3/uL (3.29-11.43)
[2024-06-10 18:30] LABS: Alanine Aminotransferase 14 U/L (0-41); Albumin Level 3.8 g/dL (3.5-5.2); Alkaline Phosphatase 106 U/L (40-130); Anion Gap 11.3 (5-19); Aspartate Amino Transferase 17 U/L (0-40); Blood Urea Nitrogen 24 mg/dL (8-23); Calcium 8.7 mg/dL (8.5-10.5); Carbon Dioxide 32 mmol/L (22-29); Chloride 100 mmol/L (98-107); Creatinine Clr Calc Pharmacy 33.3919; Globulin 2.6 g/dL (1.3-4.6); Glucose 101 mg/dL (65-115); NT Pro B Type Natriuretic Pept 250 pg/mL (0-450); Osmolality Calculated 292 mOsm/kg (285-295); Potassium 4.3 mmol/L (3.5-5.1); Sodium 139 mmol/L (136-145); Total Bilirubin 0.2 mg/dL (0.15-1.2); Total Protein 6.4 g/dL (6.6-8.7)
--- NOTE | 2024-06-10 19:36 | CTR_ITS ---
PROCEDURE INFORMATION: Exam: CTA Chest With Contrast Exam date and time: 06/10/2024 8:12 PM Age: 79 years old Clinical indication: Shortness of breath; Additional info: Otpt worsening pneumonia, copd, dyspnea TECHNIQUE: Imaging protocol: Computed tomographic angiography of the chest with contrast. Exam focused on the arteries. 3D rendering (Not supervised by radiologist): MIP and/or 3D reconstructed images were created by the technologist. Radiation optimization: All CT scans at this facility use at least one of these dose optimization techniques: automated exposure control; mA and/or kV adjustment per patient size (includes targeted exams where dose is matched to clinical indication); or iterative reconstruction. Contrast material: OMNI 350; Contrast volume: 100 ml; Contrast route: INTRAVENOUS (IV); COMPARISON: CT chest wo con [id number] 05/19/2023 10:47 AM RADIATION DOSE METRICS: Total DLP (mGy-cm): 240.77 FINDINGS: Pulmonary arteries: Poor enhancement of the left lower lobe segmental/subsegmental branches compatible with PE. No central PE. Aorta: No evidence of aneurysmal dilatation or dissection of the thoracic aorta. Thyroid: Grossly unremarkable. Lungs: Severe emphysematous changes with biapical fibronodularity, not significantly changed since April 2023. There is bibasilar mucous plugging, [id number] with left basilar airspace opacities suggestive of pneumonia. Right basilar atelectasis, similar to prior. Ground-glass in the right lung base would make aspiration pneumonitis difficult to exclude. No lobar consolidation. There is a 3 cm opacity in the left lung base, which may reflect pneumonia. Follow-up CT following treatment is recommended to exclude an underlying mass (image 396 of series 6). There may be a component of pulmonary infarct in the left lung base. Pleural spaces: No evidence of pleural effusion. No pneumothorax. Heart: No cardiomegaly. No pericardial effusion. Cardiac RV:LV ratio measures approximately 0.5. Mediastinal space: No evidence of mediastinal mass, fluid collection or hematoma. Lymph nodes: No mediastinal or hilar adenopathy. Bones/joints: No evidence of acute fracture or aggressive osseous lesion. Soft tissues: No evidence of fluid collection or hematoma in the superficial soft tissues. Other findings: No evidence of acute abnormality in the upper abdomen. Moderate narrowing of the proximal SMA secondary to atherosclerotic plaque. Consider follow-up outpatient vascular evaluatiion. CT/CT angio chest PE protcl [id number] IMPRESSION: 1. Left lower lobe segmental/subsegmental PE. Possible left basilar pulmonary infarcts. No evidence of right heart strain. 2. Left lower lobe aspiration pneumonia. Follow-up CT of the chest in 4-6 weeks is recommended to assess for resolution. 3. Severe emphysematous changes. The presence of pulmonary emphysema on CT is an independent risk factor for lung cancer. In the absence of a history or active diagnosis of lung cancer, it is recommended that this patient with emphysema be evaluated for enrollment in a low dose CT lung cancer screening program. The findings were verbally communicated by telephone with Dr. Raymond at 9:51 PM COMPLIANCE QUALITY PERFORMANCE ANALYST on 06/10/2024.
--- NOTE | 2024-06-10 19:38 | ED_ITS ---
Documented by User: Woody Rebollar DO 06/10/24 19:40 HPI - General Adult 2 General: Chief complaint: General Medical Stated complaint: pnuemonia not improving Time Seen by Provider: 06/10/24 19:25 History of Present Illness: Patient presents to the ER for worsening pneumonia. Patient says had 2 rounds of antibiotics from his PCP that was Levaquin and doxycycline. Patient had an x-ray in their office done yesterday that said worsening pneumonia. Patient has not had his breathing treatment or blood pressure medicine tonight. Patient is on oxygen all the time. Patient does have congestive heart failure, COPD, fibrosis of the lung, on oxygen at 4 L all the time. Anticoagulated, A-fib, MOSHE, Related Data Home Medications Medication Instructions Recorded Confirmed alendronate 70 mg tablet (Fosamax) 70 mg PO Q7D 08/23/19 04/14/24 potassium chloride 20 mEq 20 meq PO DAILY@08/02/20 04/14/24 tablet,extended release calcium 500 mg (as 500 tab PO DAILY@10/16/20 04/14/24 carbonate)-vitamin D3 5 mcg (200 unit) tablet (Oyster Shell Calcium-Vitamin D3) roflumilast 500 mcg tablet 500 mcg PO DAILY@10/16/20 04/14/24 (Daliresp) ropinirole 0.25 mg tablet 0.25 mg PO BEDTIME 10/16/20 04/14/24 tamsulosin 0.4 mg capsule 0.4 mg PO DAILY 10/16/20 04/14/24 cholecalciferol (vitamin D3) 75 25 mcg PO TID 10/17/21 04/14/24 mcg (3,000 unit) tablet empagliflozin 10 mg tablet 10 mg PO DAILY 12/10/21 04/14/24 (Jardiance) guaifenesin 400 mg tablet 400 mg PO BID 07/16/22 04/14/24 sodium chloride 3 % for 4 ml inhalation DAILY secretions 04/16/23 04/14/24 nebulization lorazepam 0.5 mg tablet 0.5 mg PO BID PRN Anxiety 09/11/23 04/14/24 atorvastatin 20 mg tablet 20 mg PO BEDTIME 04/12/24 04/14/24 furosemide 20 mg tablet (Lasix) 20 mg PO .every other day 04/12/24 04/14/24 Previous Rx's Medication Instructions Recorded budesonide 0.25 mg/2 mL suspension 0.5 mg (4 mL) inhalation BID #10 mL 10/24/21 for nebulization (Pulmicort) revefenacin 175 mcg/3 mL solution 175 mcg (3 mL) inhalation DAILY 10/24/21 for nebulization (Yupelri) #90 mL arformoterol 15 mcg/2 mL solution 2 ml inhalation BID 30 days #120 mL 10/29/21 for nebulization clopidogrel 75 mg tablet 75 mg PO DAILY 30 days #30 tabs 09/19/22 apixaban 5 mg tablet (Eliquis) 5 mg PO BID@07,21 #180 tabs 08/04/23 levalbuterol tartrate 45 1 puff inhalation Q6H PRN 08/05/23 mcg/actuation aerosol inhaler Shortness Of Breath #15 grams (Xopenex HFA) Oxymizer Pendant #1 ea 11/17/23 amiodarone 200 mg tablet 200 mg PO DAILY #60 tabs 12/09/23 lisinopril 10 mg tablet 20 mg (2 x 10 mg) PO DAILY #30 tabs 12/09/23 metoprolol tartrate 25 mg tablet 12.5 mg (1/2 x 25 mg) PO DAILY PRN 12/09/23 hr more than 100 bpm #30 tabs Allergies Allergy/AdvReac Type Severity Reaction Status Date / Time formoterol Allergy Unknown Unknown Verified 06/10/24 17:31 Mhesaqd-[id number]-MeI Reductase Allergy ALGY-Joint Verified 06/10/24 17:31 Inhibitor Pain simvastatin AdvReac Intermediate ADR-Cramping Verified 06/10/24 17:31 of the Muscles PFSH ED 2 PFSH: Medical History Cyst of kidney, acquired Systolic congestive heart failure LBBB (left bundle branch block) Diastolic CHF, acute on chronic COPD exacerbation Pneumonia Pulmonary emphysema with fibrosis of lung Osteoporosis alendronate BPH (benign prostatic hyperplasia) On home oxygen therapy 4L History of 2019 novel coronavirus disease (COVID-19) (~07/2020) Heart failure with preserved ejection fraction History of nonmelanoma skin cancer Ventricular ectopy Fracture of second metatarsal bone RLS (restless legs syndrome) GERD (gastroesophageal reflux disease) Anticoagulation adequate Eliquis Atrial fibrillation COPD (chronic obstructive pulmonary disease) ASHD (arteriosclerotic heart disease) CKD (chronic kidney disease) HTN (hypertension) MOSHE (obstructive sleep apnea) Bipap 13 Hyperlipidemia Diabetes 1.5, managed as type 2 Carotid stenosis, bilateral Surgical History S/P carpal tunnel release S/P sinus surgery S/P carotid endarterectomy Family History Mother , AGE 64 Diabetes Cancer Father , AGE 62 CAD (coronary artery disease) Social History Smoking and tobacco/nicotine status: former use of tobacco/nicotine Quit status (tobacco/nicotine): has quit using Year quit tobacco: 1999 [id number] Second hand smoke exposure: No Alcohol intake: never Substance/Drug Use: never Lives independently: Yes Household members: spouse Housing: House Marital status: service: Yes branch: [employer] Current occupational status: retired Pets and animals: No Do you think of yourself as: Straight/Heterosexual Current gender identity: Male Physical Exam 2 Const: COMMON NORMALS: no acute distress, average body habitus, patient oriented x3, no limitations, healthy appearing, alert and well nourished HENMT: COMMON NORMALS: normocephalic, atraumatic, hearing grossly normal bilaterally, external ears normal, Normal external nose present and moist oral mucous membranes HEAD & SCALP: normocephalic and atraumatic NOSE: Normal external nose present EXTERNAL EAR: Yes external ears normal Neck/C-Spine: COMMON NORMALS: no JVD Chest: COMMONS NORMALS: normal inspection of the chest and normal palpation of entire chest wall Resp: COMMON NORMALS: normal respiratory effort, No retractions and No use of accessory muscles; negative for clear to auscultation bilaterally (Rhonchi bilaterally) A USCULTATION: not clear to auscultation bilaterally (Rhonchi bilaterally) Cardio: COMMON NORMALS: no JVD, regular rate, regular rhythm, S1 normal heart sound present, S2 normal heart sound present, No gallops present (Cardio), No clicks present (Cardio), No murmurs present (Cardio) and No rub (Cardio) R ATE: regular rate RHYTHM: regular rhythm HEART SOUNDS: S1 normal heart sound present and S2 normal heart sound present GI: COMMON NORMALS: Normal to inspection, nondistended, normoactive bowel sounds present, Soft to palpation, non-tender, No hepatosplenomegaly present and no masses PALPATION: Yes Soft to palpation and Yes No hepatosplenomegaly present Neuro: COMMON NORMALS: patient oriented x3 SENSORIUM/ORIENTATION: Yes alert Course 2 Vital Signs: Vital signs: Vital Signs Temperature 98.0 F 06/10/24 17:27 Pulse Rate 101 H 06/10/24 20:55 Respiratory Rate 18 06/10/24 20:45 Blood Pressure 199/96 06/10/24 20:30 Pulse Oximetry 100 06/10/24 20:45 Oxygen Delivery Me thod Nasal Cannula 06/10/24 20:45 Oxygen Flow Rate 4 06/10/24 20:45 [facility] - General Adult Medical Records I reviewed the patient's medical records. Lab Data I reviewed the patient's lab results. 06/10/24 17:49 06/10/24 17:49 Radiology Impressions Chest CTA 06/10/24 19:36 IMPRESSION: 1. Left lower lobe segmental/subsegmental PE. Possible left basilar pulmonary infarcts. No evidence of right heart strain. 2. Left lower lobe aspiration pneumonia. Follow-up CT of the chest in 4-6 weeks is recommended to assess for resolution. 3. Severe emphysematous changes. The presence of pulmonary emphysema on CT is an independent risk factor for lung cancer. In the absence of a history or active diagnosis of lung cancer, it is recommended that this patient with emphysema be evaluated for enrollment in a low dose CT lung cancer screening program. The findings were verbally communicated by telephone with Dr. Raymond at 9:51 PM INJECTION PRESS OPERATOR on 06/10/2024. Laboratory Results WBC 8.15 10^3/uL (3.29-11.43) 06/10/24 17:49 RBC 4.62 10^6/uL (3.85-5.65) 06/10/24 17:49 Hgb 12.80 g/dL (11.27-16.99) 06/10/24 17:49 Hct 39.8 % (37-53) 06/10/24 17:49 MCV 86.1 fl (82-101) 06/10/24 17:49 MCH 27.7 pg (27-33) 06/10/24 17:49 MCHC 32.2 g/dL (30-55) 06/10/24 17:49 RDW 15.1 % (12.1-15.1) 06/10/24 17:49 Plt Count 176 10^3/cmm (157-399) 06/10/24 17:49 MPV 11.3 fL (7.4-10.4) H 06/10/24 17:49 Neut % (Auto) 66.2 % 06/10/24 17:49 Lymph % (Auto) 17.8 % 06/10/24 17:49 Bowie % (Auto) 10.8 % 06/10/24 17:49 Eos % (Auto) 3.6 % 06/10/24 17:49 Baso % (Auto) 1.0 % 06/10/24 17:49 Neut # (Auto) 5.40 10^3/uL (1.8-7.7) 06/10/24 17:49 Lymph # (Auto) 1.5 10^3/uL (0.8-4.8) 06/10/24 17:49 Bowie # (Auto) 0.9 10^3/uL (0.2-0.9) 06/10/24 17:49 Eos # (Auto) 0.3 10^3/uL (0.0-0.8) 06/10/24 17:49 Baso # (Auto) 0.1 10^3/uL (0.0-0.1) 06/10/24 17:49 Nucleated RBC % (auto) 0 % 06/10/24 17:49 Nucleated RBCs # 0.0 /100WBC 06/10/24 17:49 Sodium 139 mmol/L (136-145) 06/10/24 17:49 Potassium 4.3 mmol/L (3.5-5.1) 06/10/24 17:49 Chloride 100 mmol/L (98-107) 06/10/24 17:49 Carbon Dioxide 32 mmol/L (22-29) H 06/10/24 17:49 Anion Gap 11.3 (5-19) 06/10/24 17:49 BUN 24 mg/dL (8-23) H 06/10/24 17:49 Creatinine 1.8 mg/dL (0.7-1.2) H 06/10/24 17:49 GFR Calculation Not Reportable 06/10/24 17:49 Glucose 101 mg/dL (65-115) 06/10/24 17:49 Calculated Osmolality 292 mOsm/kg (285-295) 06/10/24 17:49 Lactic Acid 0.9 mmol/L (0.5-2.2) 06/10/24 19:50 Calcium 8.7 mg/dL (8.5-10.5) 06/10/24 17:49 Total Bilirubin 0.2 mg/dL (0.15-1.2) 06/10/24 17:49 AST 17 U/L (0-40) 06/10/24 17:49 ALT 14 U/L (0-41) 06/10/24 17:49 Alkaline Phosphatase 106 U/L (40-130) 06/10/24 17:49 NT-Pro-B Natriuret Pep 250 pg/mL (0-450) 06/10/24 17:49 Total Protein 6.4 g/dL (6.6-8.7) L 06/10/24 17:49 Albumin 3.8 g/dL (3.5-5.2) 06/10/24 17:49 Globulin 2.6 g/dL (1.3-4.6) 06/10/24 17:49 Procalcitonin 0.09 ng/mL (0-0.5) 06/10/24 19:50 Urine Color Yellow (Yellow) 06/10/24 20:24 Urine Appearance Clear (CLEAR) 06/10/24 20:24 Urine pH 6.5 (5-7) 06/10/24 20:24 Ur Specific [place] 1.020 (1.005-1.030) 06/10/24 20:24 Urine Protein Negative (Negative) 06/10/24 20:24 Urine Glucose (UA) 3+ (Normal) H 06/10/24 20:24 Urine Ketones Trace (Negative) 06/10/24 20:24 Urine Blood Negative (Negative) 06/10/24 20:24 Urine Nitrate Negative (Negative) 06/10/24 20:24 Urine Bilirubin Negative (Negative) 06/10/24 20:24 Urine Urobilinogen 1.0 mg/dL (Negative) 06/10/24 20:24 Ur Leukocyte Esterase Negative (Negative) 06/10/24 20:24 Urine RBC 0-2 /hpf (0-2) 06/10/24 20:24 Urine WBC 0-5 /hpf (0-5) 06/10/24 20:24 Ur Squamous Epith Cells 0-5 /hpf (0-5) 06/10/24 20:24 Amorphous Sediment Not Reportable 06/10/24 20:24 Urine Bacteria None seen /hpf (NONE) 06/10/24 20:24 Hyaline Casts 0-4 /lpf H 06/10/24 20:24 Coronavirus (PCR) Negative (Negative) 06/10/24 20:55 Influenza A (PCR) Negative (Negative) 06/10/24 20:55 Influenza Type B (PCR) Negative (Negative) 06/10/24 20:55 RSV (PCR) Negative (Negative) 06/10/24 20:55 All radiology interpretation(s) finalized by discharge Discharge Plan Discharge Patient Disposition: Admitted As Inpatient Clinical Impression: Aspiration pneumonia, Pulmonary embolism, Acute on chronic hypoxic respiratory failure Condition: Stable Coding Level of Care Code ED Chip Mucker for Chg Fwd Documented by User: Natalie Aguillon MD 06/10/24 22:50 HPI - General Adult 2 General: Chief complaint: General Medical Stated complaint: pnuemonia not improving Time Seen by Provider: 06/10/24 19:25 Related Data Home Medications Medication Instructions Recorded Confirmed alendronate 70 mg tablet (Fosamax) 70 mg PO Q7D 08/23/19 04/14/24 potassium chloride 20 mEq 20 meq PO DAILY@08/02/20 04/14/24 tablet,extended release calcium 500 mg (as 500 tab PO DAILY@10/16/20 04/14/24 carbonate)-vitamin D3 5 mcg (200 unit) tablet (Oyster Shell Calcium-Vitamin D3) roflumilast 500 mcg tablet 500 mcg PO DAILY@07 10/16/20 04/14/24 (Daliresp) ropinirole 0.25 mg tablet 0.25 mg PO BEDTIME 10/16/20 04/14/24 tamsulosin 0.4 mg capsule 0.4 mg PO DAILY 10/16/20 04/14/24 cholecalciferol (vitamin D3) 75 25 mcg PO TID 10/17/21 04/14/24 mcg (3,000 unit) tablet empagliflozin 10 mg tablet 10 mg PO DAILY 12/10/21 04/14/24 (Jardiance) guaifenesin 400 mg tablet 400 mg PO BID 07/16/22 04/14/24 sodium chloride 3 % for 4 ml inhalation DAILY secretions 04/16/23 04/14/24 nebulization lorazepam 0.5 mg tablet 0.5 mg PO BID PRN Anxiety 09/11/23 04/14/24 atorvastatin 20 mg tablet 20 mg PO BEDTIME 04/12/24 04/14/24 furosemide 20 mg tablet (Lasix) 20 mg PO .every other day 04/12/24 04/14/24 Previous Rx's Medication Instructions Recorded budesonide 0.25 mg/2 mL suspension 0.5 mg (4 mL) inhalation BID #10 mL 10/24/21 for nebulization (Pulmicort) revefenacin 175 mcg/3 mL solution 175 mcg (3 mL) inhalation DAILY 10/24/21 for nebulization (Yupelri) #90 mL arformoterol 15 mcg/2 mL solution 2 ml inhalation BID 30 days #120 mL 10/29/21 for nebulization clopidogrel 75 mg tablet 75 mg PO DAILY 30 days #30 tabs 09/19/22 apixaban 5 mg tablet (Eliquis) 5 mg PO BID@ #180 tabs 08/04/23 levalbuterol tartrate 45 1 puff inhalation Q6H PRN 08/05/23 mcg/actuation aerosol inhaler Shortness Of Breath #15 grams (Xopenex HFA) Oxymizer Pendant #1 ea 11/17/23 amiodarone 200 mg tablet 200 mg PO DAILY #60 tabs 12/09/23 lisinopril 10 mg tablet 20 mg (2 x 10 mg) PO DAILY #30 tabs 12/09/23 metoprolol tartrate 25 mg tablet 12.5 mg (1/2 x 25 mg) PO DAILY PRN 12/09/23 hr more than 100 bpm #30 tabs Allergies Allergy/AdvReac Type Severity Reaction Status Date / Time formoterol Allergy Unknown Unknown Verified 06/10/24 17:31 [id number] Reductase Allergy ALGY-Joint Verified 06/10/24 17:31 Inhibitor Pain simvastatin AdvReac Intermediate ADR-Cramping Verified 06/10/24 17:31 of the Muscles Review of Systems 2 Narrative: Constitutional symptoms: Negative except as documented in HPI. Skin symptoms: Negative except as documented in HPI. Eye symptoms: Negative except as documented in HPI. ENMT symptoms: Negative except as documented in HPI. Respiratory symptoms: Negative except as documented in HPI. Cardiovascular symptoms: Negative except as documented in HPI. Gastrointestinal symptoms: Negative except as documented in HPI. Genitourinary symptoms: Negative except as documented in HPI. Musculoskeletal symptoms: Negative except as documented in HPI. Neurologic symptoms: Negative except as documented in HPI. Psychiatric symptoms: Negative except as documented in HPI. Endocrine symptoms: Negative except as documented in HPI. PFSH ED 2 PFSH: Medical History Cyst of kidney, acquired Systolic congestive heart failure LBBB (left bundle branch block) Diastolic CHF, acute on chronic COPD exacerbation Pneumonia Pulmonary emphysema with fibrosis of lung Osteoporosis alendronate BPH (benign prostatic hyperplasia) On home oxygen therapy 4L History of 2019 novel coronavirus disease (COVID-19) (~07/2020) Heart failure with preserved ejection fraction History of nonmelanoma skin cancer Ventricular ectopy Fracture of second metatarsal bone RLS (restless legs syndrome) GERD (gastroesophageal reflux disease) Anticoagulation adequate Eliquis Atrial fibrillation COPD (chronic obstructive pulmonary disease) ASHD (arteriosclerotic heart disease) CKD (chronic kidney disease) HTN (hypertension) MOSHE (obstructive sleep apnea) Bipap 09/03 Hyperlipidemia Diabetes 1.5, managed as type 2 Carotid stenosis, bilateral Surgical History S/P carpal tunnel release S/P sinus surgery S/P carotid endarterectomy Family History Mother , AGE 64 Diabetes Cancer Father , AGE 62 CAD (coronary artery disease) Social History Smoking and tobacco/nicotine status: former use of tobacco/nicotine Quit status (tobacco/nicotine): has quit using Year quit tobacco: 1999 [id number] Second hand smoke exposure: No Alcohol intake: never Substance/Drug Use: never Lives independently: Yes Household members: spouse Housing: House Marital status: service: Yes branch: [employer] Current occupational status: retired Pets and animals: No Do you think of yourself as: Straight/Heterosexual Current gender identity: Male Course 2 Vital Signs: Vital signs: Vital Signs Temperature 98.0 F 06/10/24 17:27 Pulse Rate 101 H 06/10/24 20:55 Respiratory Rate 18 06/10/24 20:45 Blood Pressure 199/96 06/10/24 20:30 Pulse Oximetry 100 06/10/24 20:45 Oxygen Delivery Me thod Nasal Cannula 06/10/24 20:45 Oxygen Flow Rate 4 06/10/24 20:45 MDM - General Adult Medical Decision Making Patient care was transitioned to ks at shift change awaiting official read of the CT scan with a planned for admission as the patient has failed multiple rounds of antibiotics as an outpatient. He has been on Levaquin and doxycycline for extended times already. CTA chest: Pneumonia with possible aspiration. Possible pulmonary infarct which would suggest a pulmonary embolism. No heart strain. This was reviewed and interpreted by myself the emergency room physician. I also reviewed the radiology report. Consultation: I spoke with Dr. Gray who is on-call for the hospitalist service who saw the patient and is admitting. Assessment and plan: Pulmonary embolism Pneumonia Possible aspiration Failed outpatient therapy Renal insufficiency ?Cefepime and Zyvox in the emergency room -I discussed the patient with the hospitalist on-call who is admitting the patient. - Discussed findings and plan with patient. Answered any questions. - All laboratory values were reviewed and interpreted personally by myself, the ER physician - All imaging was reviewed and interpreted personally by myself, the ER physician. - Evaluation and treatment of this problem were appropriate in the emergency setting Lab Data 06/10/24 17:49 06/10/24 17:49 Radiology Impressions Chest CTA 06/10/24 19:36 IMPRESSION: 1. Left lower lobe segmental/subsegmental PE. Possible left basilar pulmonary infarcts. No evidence of right heart strain. 2. Left lower lobe aspiration pneumonia. Follow-up CT of the chest in 4-6 weeks is recommended to assess for resolution. 3. Severe emphysematous changes. The presence of pulmonary emphysema on CT is an independent risk factor for lung cancer. In the absence of a history or active diagnosis of lung cancer, it is recommended that this patient with emphysema be evaluated for enrollment in a low dose CT lung cancer screening program. The findings were verbally communicated by telephone with Dr. Raymond at 9:51 PM INJECTION PRESS OPERATOR on 06/10/2024. Laboratory Results WBC 8.15 10^3/uL (3.29-11.43) 06/10/24 17:49 RBC 4.62 10^6/uL (3.85-5.65) 06/10/24 17:49 Hgb 12.80 g/dL (11.27-16.99) 06/10/24 17:49 Hct 39.8 % (37-53) 06/10/24 17:49 MCV 86.1 fl (82-101) 06/10/24 17:49 MCH 27.7 pg (27-33) 06/10/24 17:49 MCHC 32.2 g/dL (30-55) 06/10/24 17:49 RDW 15.1 % (12.1-15.1) 06/10/24 17:49 Plt Count 176 10^3/cmm (157-399) 06/10/24 17:49 MPV 11.3 fL (7.4-10.4) H 06/10/24 17:49 Neut % (Auto) 66.2 % 06/10/24 17:49 Lymph % (Auto) 17.8 % 06/10/24 17:49 Bowie % (Auto) 10.8 % 06/10/24 17:49 Eos % (Auto) 3.6 % 06/10/24 17:49 Baso % (Auto) 1.0 % 06/10/24 17:49 Neut # (Auto) 5.40 10^3/uL (1.8-7.7) 06/10/24 17:49 Lymph # (Auto) 1.5 10^3/uL (0.8-4.8) 06/10/24 17:49 Bowie # (Auto) 0.9 10^3/uL (0.2-0.9) 06/10/24 17:49 Eos # (Auto) 0.3 10^3/uL (0.0-0.8) 06/10/24 17:49 Baso # (Auto) 0.1 10^3/uL (0.0-0.1) 06/10/24 17:49 Nucleated RBC % (auto) 0 % 06/10/24 17:49 Nucleated RBCs # 0.0 /100WBC 06/10/24 17:49 Sodium 139 mmol/L (136-145) 06/10/24 17:49 Potassium 4.3 mmol/L (3.5-5.1) 06/10/24 17:49 Chloride 100 mmol/L (98-107) 06/10/24 17:49 Carbon Dioxide 32 mmol/L (22-29) H 06/10/24 17:49 Anion Gap 11.3 (5-19) 06/10/24 17:49 BUN 24 mg/dL (8-23) H 06/10/24 17:49 Creatinine 1.8 mg/dL (0.7-1.2) H 06/10/24 17:49 GFR Calculation Not Reportable 06/10/24 17:49 Glucose 101 mg/dL (65-115) 06/10/24 17:49 Calculated Osmolality 292 mOsm/kg (285-295) 06/10/24 17:49 Lactic Acid 0.9 mmol/L (0.5-2.2) 06/10/24 19:50 Calcium 8.7 mg/dL (8.5-10.5) 06/10/24 17:49 Total Bilirubin 0.2 mg/dL (0.15-1.2) 06/10/24 17:49 AST 17 U/L (0-40) 06/10/24 17:49 ALT 14 U/L (0-41) 06/10/24 17:49 Alkaline Phosphatase 106 U/L (40-130) 06/10/24 17:49 NT-Pro-B Natriuret Pep 250 pg/mL (0-450) 06/10/24 17:49 Total Protein 6.4 g/dL (6.6-8.7) L 06/10/24 17:49 Albumin 3.8 g/dL (3.5-5.2) 06/10/24 17:49 Globulin 2.6 g/dL (1.3-4.6) 06/10/24 17:49 Procalcitonin 0.09 ng/mL (0-0.5) 06/10/24 19:50 Urine Color Yellow (Yellow) 06/10/24 20:24 Urine Appearance Clear (CLEAR) 06/10/24 20:24 Urine pH 6.5 (5-7) 06/10/24 20:24 Ur Specific [place] 1.020 (1.005-1.030) 06/10/24 20:24 Urine Protein Negative (Negative) 06/10/24 20:24 Urine Glucose (UA) 3+ (Normal) H 06/10/24 20:24 Urine Ketones Trace (Negative) 06/10/24 20:24 Urine Blood Negative (Negative) 06/10/24 20:24 Urine Nitrate Negative (Negative) 06/10/24 20:24 Urine Bilirubin Negative (Negative) 06/10/24 20:24 Urine Urobilinogen 1.0 mg/dL (Negative) 06/10/24 20:24 Ur Leukocyte Esterase Negative (Negative) 06/10/24 20:24 Urine RBC 0-2 /hpf (0-2) 06/10/24 20:24 Urine WBC 0-5 /hpf (0-5) 06/10/24 20:24 Ur Squamous Epith Cells 0-5 /hpf (0-5) 06/10/24 20:24 Amorphous Sediment Not Reportable 06/10/24 20:24 Urine Bacteria None seen /hpf (NONE) 06/10/24 20:24 Hyaline Casts 0-4 /lpf H 06/10/24 20:24 Coronavirus (PCR) Negative (Negative) 06/10/24 20:55 Influenza A (PCR) Negative (Negative) 06/10/24 20:55 Influenza Type B (PCR) Negative (Negative) 06/10/24 20:55 RSV (PCR) Negative (Negative) 06/10/24 20:55 Discharge Plan Discharge Patient Disposition: Admitted As Inpatient Clinical Impression: Aspiration pneumonia, Pulmonary embolism, Acute on chronic hypoxic respiratory failure Condition: Stable Coding Level of Care Code ED Chip Mucker for Robert Garcia
[2024-06-10] MEDS: lisinopril 20 mg Tablet PO (19:57)
[2024-06-10] MEDS: iohexol 350 mg/mL 500 mL Btl (per mL) IV (20:16)
[2024-06-10 20:26] LABS: Procalcitonin 0.09 ng/mL (0-0.5)
[2024-06-10] MEDS: hyDRALAzine 20 mg/mL INJ 1 mL IVP (20:31)
[2024-06-10 20:45] LABS: Bilirubin Urine Negative (Negative); Blood Urine Negative (Negative); Glucose Urine UA 3+ (Normal); Ketones Urine Trace (Negative); Leukocyte Esterase Urine Negative (Negative); Nitrate Urine Negative (Negative); Protein Urine Negative (Negative); Urine Appearance Clear (CLEAR); Urine Color Yellow (Yellow); pH Urine 6.5 (5-7)
[2024-06-10] MEDS: ipratropium-albuterol 3 mL Neb INHALATION (20:46)
[2024-06-10 20:50] LABS: Add Urine Microscopic? YES; Bacteria Urine None Seen /hpf; Hyaline Casts Urine 0-4 /lpf; RBC Urine 0-2 /hpf (0-2); Squamous Epithelial Cell Urine 0-5 /hpf (0-5); WBC Urine 0-5 /hpf (0-5)
[2024-06-10 21:05] LABS: Lactic Sepsis W/Reflex 0.9 mmol/L (0.5-2.2)
[2024-06-10 21:36] LABS: Covid PCR NEGATIVE (Negative); Influenza A NEGATIVE (Negative); Influenza B NEGATIVE (Negative); Respiratory Syncytial Virus Ce NEGATIVE (Negative)
--- NOTE | 2024-06-10 21:57 | P.HP_ITS ---
Providers/Chief Complaint 2 Primary Care Provider: Dorie Nichols NP Chief Complaint: pnuemonia not improving History of Present Illness Jonathan Sultana is a 79 year old male with CAD, left bundle branch block, diastolic CHF, COPD, diastolic CHF, atrial fibrillation on Eliquis, CKD history of carotid artery stenosis, hyperlipidemia, type 2 diabetes mellitus, obstructive sleep apnea, hypertension, MRSA nares negative sputum culture showed Pseudomonas earlier this year has been struggling with persistent pneumonia came in for worsening of shortness of breath. Patient has finished 2 rounds of doxycycline and Levaquin without any significant improvement. In the ER he has been diagnosed with left-sided subsegmental PE without right heart strain he is doing well on his home oxygen requirement of 4 L he is afebrile no leukocytosis. Patient is stating that he has been dealing with pneumonia for last 2 to 3 weeks, he has finished 7 days of antibiotics each levofloxacin and doxycycline without any significant improvement, he is endorsing coughing and choking on food stating that he cannot wear dentures and tries to eat softer diet. He has not noticed any fever, nausea vomiting or diarrhea in fact he is endorsing constipation and sometimes notices blood when he wipes himself. He thinks he probably has hemorrhoids. His oxygen requirement has not worsened he has stayed compliant with his Eliquis. He has been feeling lethargic and fatigued with shortness of breath that what prompted his visit to the ER. Patient is also endorsing constipation stating that he has tried multiple stool softeners but without any significant improvement previous remote colonoscopy did not show any sign of cancer. He is endorsing incomplete evacuation of stool. I have requested sputum culture start him on double antipseudomonal coverage previous MRSA nares negative Request modified barium swallow put him on pur?ed diet Held lisinopril for worsening of creatinine Patient is hemodynamically stable no active complaints at all He has received cefepime and linezolid in the ER along hydralazine for hypertension Review of Systems 2 Const: Denies: fever(s) Eyes: Denies: change in vision ENMT: Denies: throat pain Card: Denies: chest pain Resp: Reports: dyspnea GI: Reports: constipation : Denies: flank pain Musc: Reports: back pain Skin/Breast: Denies: rash Medications/Allergies Home Medications Medication Instructions Recorded Confirmed Last Taken Type alendronate 70 mg tablet (Fosamax) 70 mg PO Q7D 08/23/19 04/14/24 11/30/23 08:00 History potassium chloride 20 mEq 20 meq PO DAILY@08/02/20 04/14/24 12/06/23 08:00 History tablet,extended release calcium 500 mg (as 500 tab PO DAILY@10/16/20 04/14/24 12/05/23 08:00 History carbonate)-vitamin D3 5 mcg (200 unit) tablet (Oyster Shell Calcium-Vitamin D3) roflumilast 500 mcg tablet 500 mcg PO DAILY@10/16/20 04/14/24 12/06/23 08:00 History (Daliresp) ropinirole 0.25 mg tablet 0.25 mg PO BEDTIME 10/16/20 04/14/24 12/05/23 17:00 History tamsulosin 0.4 mg capsule 0.4 mg PO DAILY 10/16/20 04/14/24 12/06/23 08:00 History cholecalciferol (vitamin D3) 75 25 mcg PO TID 10/17/21 04/14/24 12/05/23 17:00 History mcg (3,000 unit) tablet budesonide 0.25 mg/2 mL suspension 0.5 mg (4 mL) inhalation BID #10 mL 10/24/21 04/14/24 12/06/23 08:00 Rx for nebulization (Pulmicort) revefenacin 175 mcg/3 mL solution 175 mcg (3 mL) inhalation DAILY 10/24/21 04/14/24 12/05/23 12:00 Rx for nebulization (Yupelri) #90 mL arformoterol 15 mcg/2 mL solution 2 ml inhalation BID 30 days #120 mL 10/29/21 04/14/24 12/06/23 08:00 Rx for nebulization empagliflozin 10 mg tablet 10 mg PO DAILY 12/10/21 04/14/24 12/06/23 08:00 History (Jardiance) guaifenesin 400 mg tablet 400 mg PO BID 07/16/22 04/14/24 12/06/23 08:00 History clopidogrel 75 mg tablet 75 mg PO DAILY 30 days #30 tabs 09/19/22 04/14/24 12/06/23 08:00 Rx sodium chloride 3 % for 4 ml inhalation DAILY secretions 04/16/23 04/14/24 Unknown History nebulization apixaban 5 mg tablet (Eliquis) 5 mg PO BID@07,21 #180 tabs 08/04/23 04/14/24 12/06/23 20:00 Rx levalbuterol tartrate 45 1 puff inhalation Q6H PRN 08/05/23 04/14/24 12/06/23 08:00 Rx mcg/actuation aerosol inhaler Shortness Of Breath #15 grams (Xopenex HFA) lorazepam 0.5 mg tablet 0.5 mg PO BID PRN Anxiety 09/11/23 04/14/24 Unknown History Oxymizer Pendant #1 ea 11/17/23 04/14/24 Unknown Rx amiodarone 200 mg tablet 200 mg PO DAILY #60 tabs 12/09/23 04/14/24 Unknown Rx lisinopril 10 mg tablet 20 mg (2 x 10 mg) PO DAILY #30 tabs 12/09/23 04/14/24 12/06/23 08:00 Rx metoprolol tartrate 25 mg tablet 12.5 mg (1/2 x 25 mg) PO DAILY PRN 12/09/23 04/14/24 Unknown Rx hr more than 100 bpm #30 tabs atorvastatin 20 mg tablet 20 mg PO BEDTIME 04/12/24 04/14/24 Unknown History furosemide 20 mg tablet (Lasix) 20 mg PO .every other day 04/12/24 04/14/24 Unknown History Allergies Allergy/AdvReac Type Severity Reaction Status Date / Time formoterol Allergy Unknown Unknown Verified 06/10/24 17:31 Fxogpxp-CYI-WtF Reductase Allergy ALGY-Joint Verified 06/10/24 17:31 Inhibitor Pain simvastatin AdvReac Intermediate ADR-Cramping Verified 06/10/24 17:31 of the Muscles PFSH Acute 2 PFSH: Medical History Cyst of kidney, acquired Systolic congestive heart failure LBBB (left bundle branch block) Diastolic CHF, acute on chronic COPD exacerbation Pneumonia Pulmonary emphysema with fibrosis of lung Osteoporosis alendronate BPH (benign prostatic hyperplasia) On home oxygen therapy 4L History of 2019 novel coronavirus disease (COVID-19) (~07/2020) Heart failure with preserved ejection fraction History of nonmelanoma skin cancer Ventricular ectopy Fracture of second metatarsal bone RLS (restless legs syndrome) GERD (gastroesophageal reflux disease) Anticoagulation adequate Eliquis Atrial fibrillation COPD (chronic obstructive pulmonary disease) ASHD (arteriosclerotic heart disease) CKD (chronic kidney disease) HTN (hypertension) MOSHE (obstructive sleep apnea) Bipap 09/03 Hyperlipidemia Diabetes 1.5, managed as type 2 Carotid stenosis, bilateral Surgical History S/P carpal tunnel release S/P sinus surgery S/P carotid endarterectomy Family History Mother , AGE 64 Diabetes Cancer Father , AGE 62 CAD (coronary artery disease) Social History Smoking and tobacco/nicotine status: former use of tobacco/nicotine Quit status (tobacco/nicotine): has quit using Year quit tobacco: 1999 [id number] Second hand smoke exposure: No Alcohol intake: never Substance/Drug Use: never Lives independently: Yes Household members: spouse Housing: House Marital status: service: Yes branch: [employer] Current occupational status: retired Pets and animals: No Do you think of yourself as: Straight/Heterosexual Current gender identity: Male Vitals/I&O/Wt Last Vital Signs Temp 98.0 F 06/10/24 17:27 Pulse 101 H 06/10/24 20:55 Resp 18 06/10/24 20:45 BP 199/96 06/10/24 20:30 Pulse Ox 100 06/10/24 20:45 O2 Del Method Nasal Cannula 06/10/24 20:45 O2 Flow Rate 4 06/10/24 20:45 Weight last 48 hrs Weight 64.41 kg Physical Exam 2 Narrative: Patient is awake and alert Currently on 4 L saturating 100% Hemodynamically stable Hypertensive No sign of stroke Looks clinically dehydrated I do not appreciate any swelling of lower extremity Bilateral breath sounds with rhonchi crackles without any wheeze No respiratory accessory muscle use 8 S1, S2 variable A-fib GCS 15 Nonfocal neuroexam Pleasant and cooperative Data 06/10/24 17:49 06/10/24 17:49 Micro: Microbiology 06/10/24 19:54 Blood Culture - Preliminary Blood SPECIMEN COLLECTED 06/10/24 19:50 Blood Culture - Preliminary Blood SPECIMEN COLLECTED A&P Assessment and plan (1) HTN (hypertension): Qualifiers: Hypertension type: essential hypertension Qualified Code(s): I10 - Essential (primary) hypertension (2) Intermittent atrial fibrillation: (3) Sinus pause: (4) Atrial fibrillation: Qualifiers: Atrial fibrillation type: paroxysmal Qualified Code(s): I48.0 - Paroxysmal atrial fibrillation (5) Anticoagulation adequate: (6) COPD (chronic obstructive pulmonary disease): Qualifiers: COPD type: unspecified COPD Qualified Code(s): J44.9 - Chronic obstructive pulmonary disease, unspecified (7) Aspiration pneumonia: (8) Acute kidney injury superimposed on chronic kidney disease: (9) Pulmonary embolism: Plan Acute PE Left pulmonary vessels does not show good blood flow raising suspicion for PE No right heart strain Patient is already on Eliquis I do not see any sign of worsening of hypoxia, he is mildly tachycardic he has history of A-fib No active chest pain Patient has been compliant with Eliquis stating that he tries to stay active despite his chronic conditions Aspiration pneumonia Persistent pneumonia Concern for chronic aspiration Requested modified barium swallow study and speech therapy For now we will put him on pur?ed diet Patient endorsing choking and coughing with food intake CT scan of chest showing mosaic pattern at the base of the lungs left greater than right Low-dose CT scan may be needed for lung cancer screening Chronic hypoxia uses 4 L at baseline no acute exacerbation of COPD Acute on chronic kidney disease creatinine 1.8 worsening from 1.4, hold lisinopril, Would use hydralazine, nitrates, avoid lisinopril or losartan and amlodipine secondary to constipation and CHRISTOPHER A-fib without RVR Continue Eliquis and amiodarone along metoprolol There was concern for tachybradycardia syndrome cardiology recommended this regimen Goals of care discussed with the patient patient is stating that he is DNR/DNI and he does have documentation as well, at the bedside Will keep him on pur?ed diet Continue Eliquis Attestations 2 Medical Necessity Statement*: Anticipating discharge within 48 hours Diagnoses Essential hypertension I10 Hypertension type: essential hypertension Intermittent atrial fibrillation I48.0 Sinus pause I45.5 Paroxysmal atrial fibrillation I48.0 Atrial fibrillation type: paroxysmal Anticoagulation adequate Z79.01 Chronic obstructive pulmonary disease, unspecified COPD type J44.9 COPD type: unspecified COPD Aspiration pneumonia J69.0 Acute kidney injury superimposed on chronic kidney disease N17.9; N18.9 Pulmonary embolism I26.99
[2024-06-10] MEDS: cefepime 2,000 MG in sodium chloride 0.9% (plus) 50 ML 100 MG IV (22:08)
[2024-06-10] MEDS: linezolid premix 600 MG/300 ML PREMIX 300 MG IV (22:42)
[2024-06-11] VITALS (12 sets, daily range): BP systolic 102–163; BP diastolic 55–76; PULSE 59–96; RESP 16–19; TEMP 36.3–36.8; O2SAT 92–99
[2024-06-11] MEDS: enoxaparin 60 mg/0.6 mL Syringe SUBCUT ×3 (00:44→23:48)
[2024-06-11] MEDS: magnesium citrate Btl 296 mL 150 ML PO (01:30)
[2024-06-11 05:44] LABS: Basophils # 0.1 10^3/uL (0.0-0.1); Eosinophils # 0.3 10^3/uL (0.0-0.8); Eosinophils % 3.4 %; Hematocrit 37.9 % (37-53); Lymphocytes # 1.5 10^3/uL (0.8-4.8); Mean Corpuscular HGB Conc 31.9 g/dL (30-55); Mean Corpuscular Volume 87.7 fl (82-101); Mean Platelet Volume 11.3 fL (7.4-10.4); Monocytes % 13.1 %; Neutrophils # 4.79 10^3/uL (1.8-7.7); Neutrophils % 62.8 %; Nucleated Red Blood Cells % 0 %; Platelet Count 168 10^3/cmm (157-399); Red Blood Count 4.32 10^6/uL (3.85-5.65); Red Cell Distribution Width 15.2 % (12.1-15.1); White Blood Count 7.63 10^3/uL (3.29-11.43)
[2024-06-11 06:02] LABS: Anion Gap 13.3 (5-19); Blood Urea Nitrogen 25 mg/dL (8-23); Calcium 8.3 mg/dL (8.5-10.5); Carbon Dioxide 26 mmol/L (22-29); Chloride 102 mmol/L (98-107); Creatinine Clr Calc Pharmacy 46.4359; Glucose 87 mg/dL (65-115); Magnesium 1.8 mg/dL (1.7-2.3); Osmolality Calculated 288 mOsm/kg (285-295); Phosphorus 3.1 mg/dL (2.5-4.5); Potassium 4.3 mmol/L (3.5-5.1); Sodium 137 mmol/L (136-145)
[2024-06-11] MEDS: roflumilast 500 mcg Tablet PO (06:15)
[2024-06-11] MEDS: cefepime 2,000 MG in sodium chloride 0.9% (plus) 50 ML 100 MG IV (06:35)
[2024-06-11 06:36] LABS: Glucose Point of Care 124 mg/dL (70-110)
[2024-06-11] MEDS: acetylcysteine 200 mg/mL SDV 4 mL INHALATION ×3 (08:02→20:49)
[2024-06-11] MEDS: levalbuterol 1.25 mg/3 mL Neb INHALATION ×3 (08:02→20:48)
[2024-06-11] MEDS: clopidogrel 75 mg Tablet PO (08:11)
[2024-06-11] MEDS: tamsulosin 0.4 mg Capsule PO (08:11)
[2024-06-11] MEDS: amiodarone 200 mg Tablet PO (08:11)
[2024-06-11] MEDS: guaiFENesin 100 mg/5 mL UDC 10 mL 400 MG PO ×2 (08:11→17:18)
[2024-06-11] MEDS: piperacillin-tazobactam 3.375 GM in sodium chloride 0.9% (plus) 50 ML IV (08:12)
--- NOTE | 2024-06-11 08:20 | PC.PHAR ---
[facility] 06/11/24 8:15am
--- NOTE | 2024-06-11 09:32 | PC.CHAP ---
Pastoral Care Encounter/Spiritual Assessment Type of Contact [] Declined civil celebrant visit [] Patient/Family/Request visit [] Outpatient visit [] Follow-up visit [] Physician referral [] Code/Alert [X] Routine visit [] Staff referral [] Actively dying [] Patient sleeping [] Family support [] [] Out of room [] Palliative care [] [] Receiving care in room [] Pre-surgical visit [] Trauma [] Long length of stay [] ICU visit [] Other: Relational/Emotional Strength [X] Patient feels connected with others/family/visitors/staff [] Distress [] Loneliness/isolation [] Abandonment Spirituality of Patient [X] Person of Shi [X] Attends Jew of their Shi [X] Believes in Prayer [X] Reads Bible or Temple materials [] There are Spiritual issues to be addressed Edge Bander Operator Interventions [X] Prayer [X] Active listening [X] Non-anxious presence [] Spiritual/emotional support [] Crisis/trauma care [] Spiritual counseling [] Bereavement support [] Provided bereavement packet [] Provided Bible/devotional materials [] Provided toy/stuffed animal, coloring book to patient or family member [] Provided Communion [] Anointing/[place] [] Salvation [] Completed spiritual assessment [] Other: Impact on Illness or Injury [] Angry [] Fearful [] Anxious [] Often cries [] Exhaustion [] Unable to work [] Unable to attend judaism [] Unable to walk/stand [] Unable to read [] Unable to drive [] Unable to eat/drink [] Unable to sleep [] Unable to be with family [] Patient intubated [] Other: Summary gOOD SPIRITS Time spent with patient 10 min
--- NOTE | 2024-06-11 10:26 | PC.PHAR ---
pts' has a really accurate and organized list of medications to use for verification. [facility].
--- NOTE | 2024-06-11 10:48 | XR_ITS ---
WS: [id number] KUB, AP view, 06/11/2024 Clinical Data: Constipation Comparison: None. Findings: No abnormal intraabdominal masses or calcifications are seen. There is no dilatated small bowel or ev idence of obstruction. There is air throughout the small bowel and colon. There is a moderate amount of feces in the descend ing colon and rectosigmoid. There is contrast material in the bladder. XR/XR KUB portable [id number] Impression: 1. Moderate generalized ileus. 2. Moderate fecal material in the descending colon and rectosigmoid colon.
[2024-06-11 11:05] LABS: Glucose Point of Care 139 mg/dL (70-110)
--- NOTE | 2024-06-11 11:28 | CTR_ITS ---
PROCEDURE INFORMATION: Exam: CT Abdomen And Pelvis Without Contrast Exam date and time: 06/11/2024 12:10 PM Age: 79 years old Clinical indication: Constipation; Additional info: Constipation/ileus TECHNIQUE: Imaging protocol: Computed tomography of the abdomen and pelvis without contrast. Radiation optimization: All CT scans at this facility use at least one of these dose optimization techniques: automated exposure control; mA and/or kV adjustment per patient size (includes targeted exams where dose is matched to clinical indication); or iterative reconstruction. COMPARISON: 1. CT chest abdpel w/*[id number] 10/15/2020 9:50 PM 2. PT PET skull to thigh INIT [id number] 02/15/2023 10:[address] angio chest PE protcl [id number] 06/10/2024 8:12 PM RADIATION DOSE METRICS: Total DLP (mGy-cm): 436.16 FINDINGS: Lungs: There is severe emphysema. There is moderate reticular opacity in the inferior lower lobes bilaterally, with more confluent areas of consolidation on the left. Liver: The liver is normal. Gallbladder and biliary ducts: There is no intrahepatic or extrahepatic bile duct dilation. The gallbladder is absent. Pancreas: There is moderate atrophy of the pancreas. Spleen: The spleen is unremarkable. Adrenal glands: The adrenal glands are unremarkable. Kidneys and ureters: There is bilateral renal vascular calcification. No definite stones in the collecting systems. There is a simple exophytic 2.9 cm left renal cyst. There is no hydronephrosis or ureteral dilation. There is partial contrast filling of the ureters. Stomach and bowel: Stomach is mildly distended. The small bowel is nondilated. The cecum is mildly stool and gas distended. Transverse and descending colon is nondistended and partially stool filled. Sigmoid is progressively stool distended distally. Rectum is dilated and stool filled measuring 7.4 x 6.8 cm diameter. The rectal wall is thin and there is no perirectal edema. There is no sign of high-grade colonic obstruction or inflammation. Appendix: The appendix is normal. Intraperitoneal space: There is no free air or significant intraperitoneal free fluid. Vasculature: There is severe aortic atherosclerotic disease. Lymph nodes: There is no lymphadenopathy in the retroperitoneum, mesentery, pelvis or inguinal regions. Urinary bladder: The bladder lumen is contrast filled. The bladder is mildly distended. The bladder wall is markedly diffusely trabeculated. Reproductive: There is nonspecific moderate enlargement of the prostate gland. Bones/joints: There is mild degenerative disease in the lumbar spine. There is mild degenerative disease of both hips. The bony pelvis is intact. Soft tissues: The abdominal wall is intact. There is a 3.1 cm simple lipoma in left external oblique muscle. CT/CT abdomen pelvis wo con [id number] IMPRESSION: 1. Dilated stool-filled rectum measuring up to 7.4 cm. No sign of stercoral proctitis. 2. Mild gastric distension. Correlate with timing of last ingestion to assess for gastroparesis or gastric outlet obstruction. 3. Enlarged prostate and markedly trabeculated bladder wall consistent with chronic partial bladder outlet obstruction and muscular hypertrophy. 4. Chronic bilateral lung disease characterized by reticular opacity and consolidation in the inferior lower lobes, present since 10/15/2020. Consolidation in the left lower lobe is mildly progressive. A superimposed acute process such as infection or aspiration cannot be excluded. There is a background of severe centrilobular emphysema. 5. Incidental findings above. COMMENTS: Consistent with the [employer]'s Incidental Findings Committee white paper (J Am Parisa Radiol 2018): Any incidental renal lesion less than 1 cm or classified as too small to characterize, or any incidental cystic renal lesion characterized as simple-appearing, is likely benign. No follow-up imaging is recommended for these lesions per consensus recommendations based on imaging criteria.
--- NOTE | 2024-06-11 11:36 | PC.SOCIAL ---
IMM Update pg 2 of IMM updated and reviewed w/ patient. Copy provided and copy dated, initialed and signed by patient and placed in chart.
--- NOTE | 2024-06-11 11:37 | P.PN_ITS ---
Vitals/I&O/Wt Last Vital Signs Temp 98.2 F 06/11/24 11:16 Pulse 67 06/11/24 11:16 Resp 16 06/11/24 11:16 BP 163/76 06/11/24 11:16 Pulse Ox 97 06/11/24 11:16 O2 Del Method Nasal Cannula 06/11/24 11:16 O2 Flow Rate 3 06/11/24 11:16 06/10/24 06/11/24 06/11/24 22:59 06:59 14:59 Intake Total 50 / 50 900 / 950 329.375 / 329.375 Output Total 250 / 250 Balance 50 / 50 650 / 700 329.375 / 329.375 Weight last 48 hrs Weight 65.181 kg Weight 64.682 kg Weight 64.41 kg Data 06/11/24 05:06 06/11/24 05:06 Micro: Microbiology 06/10/24 19:54 Blood Culture - Preliminary Blood SPECIMEN COLLECTED 06/10/24 19:50 Blood Culture - Preliminary Blood SPECIMEN COLLECTED A&P Assessment and plan (1) Pulmonary embolism: (2) Aspiration pneumonia: (3) Systolic congestive heart failure: (4) Constipation: (5) Ileus: (6) HTN (hypertension): Qualifiers: Hypertension type: essential hypertension Qualified Code(s): I10 - Essential (primary) hypertension (7) Sinus pause: (8) Atrial fibrillation: Qualifiers: Atrial fibrillation type: paroxysmal Qualified Code(s): I48.0 - Paroxysmal atrial fibrillation (9) Anticoagulation adequate: (10) COPD (chronic obstructive pulmonary disease): Qualifiers: COPD type: unspecified COPD Qualified Code(s): J44.9 - Chronic obstructive pulmonary disease, unspecified Plan Shortness of breath: Most likely combination of COPD, acute pulmonary embolism, history of congestive heart failure along with concerns for acute on chronic aspiration. Patient does not have any leukocytosis, fever, unstable oxygen supplementation at baseline of 3 to 4 L. Denies worsening shortness of breath recently. Acute pneumonia less likely. High likelihood of recurrent episodes of aspiration along with mild congestive heart failure. Follow-up speech evaluation. Modified barium swallow when available. Check MRSA swab, sputum culture. Past history of pneumonia with Pseudomonas most recently in 12/18. Continue with cefepime. Add linezolid. Stop Zosyn. Oxygen supplementation keeping saturation over 90%. Pulmicort twice daily, ipratropium, Xopenex every 6 hours. Not in major fluid overload right now. Increase home dose of Lasix to 40 mg oral daily. Last echocardiogram showed an EF of 45% with grade 1 diastolic dysfunction, biatrial enlargement. Appreciate CT scan. Concerns for severe emphysema. Given persistent shortness of breath for now we will check LDH and fungitell. Acute PE: Patient already takes Eliquis 5 mg twice daily at home for anticoagulation for stroke prevention in setting of A-fib. For now continue on full dose Lovenox. Will plan to transition to higher dose of Eliquis for 1 week on discharge followed by 5 mg twice daily. CKD: Baseline creatinine from November seems to be running at 1.2-1.4. Currently creatinine at baseline. Monitor daily. No concerns for acidosis for now. Medical reconciliation done for nephrotoxic drugs. Hypertension: Presenting blood pressure to ER more than 200. Goal blood pressure less than 140/90 mmHg. Blood pressure is elevated for now. Hold off on home dose of lisinopril. Add amlodipine 5 mg oral daily, hydralazine 50 mg 3 times daily. Uptitrate as for goal blood pressures. Atrial fibrillation: Chronic. History of bradycardia with sinus pause. Continue with metoprolol as needed. Constipation: Complains of chronic constipation alternating with diarrhea. Occasional episodes of blood on wiping with concerns for internal hemorrhoids. Check x-ray KUB. If needed will plan for CT abdomen/pelvis. Monitor electrolytes. Enema. Aggressive bowel regimen with milk of magnesia, senna Colace. Goals of care discussed with the patient patient is stating that he is DNR/DNI and he does have documentation as well, at the bedside Will keep him on pur?ed diet Continue Eliquis Attestations 2 Medical Necessity Statement*: Requires further hospitalization for management of shortness of breath in setting of chronic aspiration, acute pulmonary embolism, COPD, congestive heart failure, constipation with concerns for ileus, uncontrolled hypertension while antihypertensives were adjusted Diagnoses Pulmonary embolism I26.99 Aspiration pneumonia J69.0 Systolic congestive heart failure I50.20 Constipation K59.00 Ileus K56.7 Essential hypertension I10 Hypertension type: essential hypertension Sinus pause I45.5 Paroxysmal atrial fibrillation I48.0 Atrial fibrillation type: paroxysmal Anticoagulation adequate Z79.01 Chronic obstructive pulmonary disease, unspecified COPD type J44.9 COPD type: unspecified COPD
[2024-06-11] MEDS: magnesium hydroxide 30 mL UDC PO ×2 (12:31→20:30)
[2024-06-11 12:32] LABS: D Dimer 0.41 ug/mLFEU (0-0.59)
[2024-06-11] MEDS: azithromycin 250 mg Tablet 500 MG PO (12:32)
[2024-06-11] MEDS: linezolid 600 mg Tablet PO ×2 (12:32→23:48)
[2024-06-11] MEDS: amlodipine 5 mg Tablet PO (12:32)
[2024-06-11 12:39] LABS: Lactate Dehydrogenase 158 U/L (135-225)
[2024-06-11 12:47] LABS: MRSA PCR OZH (swab) NOT DETECTED (Negative)
[2024-06-11] MEDS: ipratropium 0.5 mg/2.5 mL Neb INHALATION ×2 (13:42→20:48)
[2024-06-11] MEDS: FUROsemide 40 mg Tablet PO (14:22)
[2024-06-11] MEDS: hyDRALAzine 50 mg Tablet PO ×2 (14:22→20:30)
[2024-06-11] MEDS: pantoprazole 40 mg SDV IVP (14:22)
[2024-06-11 14:48] LABS: Procalcitonin 0.08 ng/mL (0-0.5)
[2024-06-11 16:58] LABS: Glucose Point of Care 184 mg/dL (70-110)
[2024-06-11] MEDS: sennosides-docusate Tablet 1 TAB PO (17:17)
[2024-06-11] MEDS: insulin lispro 100 unit/1 mL SUBCUT ×2 (17:18→21:45)
[2024-06-11] MEDS: ropinirole 0.25 mg Tablet PO (20:30)
[2024-06-11] MEDS: cefepime 1,000 MG in sodium chloride 0.9% (plus) 50 ML 100 MG IV (20:30)
[2024-06-11] MEDS: budesonide 0.5 mg/2 mL Neb INHALATION (20:49)
[2024-06-11 21:18] LABS: Glucose Point of Care 239 mg/dL (70-110)
[2024-06-12] VITALS (8 sets, daily range): BP systolic 107–126; BP diastolic 58–60; PULSE 57–72; RESP 18; TEMP 36.4–36.5; O2SAT 94–99
[2024-06-12 03:06] LABS: Basophils # 0.1 10^3/uL (0.0-0.1); Basophils % 0.9 %; Eosinophils # 0.3 10^3/uL (0.0-0.8); Eosinophils % 5.2 %; Hematocrit 33.7 % (37-53); Lymphocytes # 1.2 10^3/uL (0.8-4.8); Lymphocytes % 17.6 %; Mean Corpuscular Hemoglobin 27.2 pg (27-33); Mean Corpuscular Volume 84.9 fl (82-101); Monocytes # 0.9 10^3/uL (0.2-0.9); Neutrophils # 4.09 10^3/uL (1.8-7.7); Neutrophils % 62.7 %; Nucleated Red Blood Cells % 0 %; Platelet Count 150 10^3/cmm (157-399); Red Blood Count 3.97 10^6/uL (3.85-5.65); Red Cell Distribution Width 15.4 % (12.1-15.1); White Blood Count 6.53 10^3/uL (3.29-11.43)
[2024-06-12] MEDS: ipratropium 0.5 mg/2.5 mL Neb INHALATION ×2 (03:25→08:45)
[2024-06-12] MEDS: levalbuterol 1.25 mg/3 mL Neb INHALATION ×2 (03:25→08:46)
[2024-06-12] MEDS: acetylcysteine 200 mg/mL SDV 4 mL INHALATION ×2 (03:25→08:45)
[2024-06-12 03:28] LABS: Magnesium 2.3 mg/dL (1.7-2.3)
[2024-06-12 03:29] LABS: Procalcitonin 0.09 ng/mL (0-0.5)
[2024-06-12 03:30] LABS: Potassium 3.7 mmol/L (3.5-5.1)
[2024-06-12 03:34] LABS: Alanine Aminotransferase 11 U/L (0-41); Albumin Level 3.4 g/dL (3.5-5.2); Alkaline Phosphatase 86 U/L (40-130); Anion Gap 14.7 (5-19); Aspartate Amino Transferase 16 U/L (0-40); Blood Urea Nitrogen 27 mg/dL (8-23); Calcium 8.5 mg/dL (8.5-10.5); Carbon Dioxide 25 mmol/L (22-29); Chloride 102 mmol/L (98-107); Creatinine Clr Calc Pharmacy 50.3055; Glucose 90 mg/dL (65-115); Osmolality Calculated 291 mOsm/kg (285-295); Sodium 138 mmol/L (136-145); Total Bilirubin 0.2 mg/dL (0.15-1.2); Total Protein 5.4 g/dL (6.6-8.7)
[2024-06-12 06:15] LABS: Glucose Point of Care 113 mg/dL (70-110)
[2024-06-12] MEDS: roflumilast 500 mcg Tablet PO (06:17)
[2024-06-12] MEDS: azithromycin 250 mg Tablet 500 MG PO (08:29)
[2024-06-12] MEDS: guaiFENesin 100 mg/5 mL UDC 10 mL 400 MG PO (08:29)
[2024-06-12] MEDS: clopidogrel 75 mg Tablet PO (08:29)
[2024-06-12] MEDS: FUROsemide 40 mg Tablet PO (08:29)
[2024-06-12] MEDS: amlodipine 5 mg Tablet PO (08:29)
[2024-06-12] MEDS: tamsulosin 0.4 mg Capsule PO (08:29)
[2024-06-12] MEDS: sennosides-docusate Tablet 1 TAB PO (08:30)
[2024-06-12] MEDS: cefepime 1,000 MG in sodium chloride 0.9% (plus) 50 ML 100 MG IV (08:30)
[2024-06-12] MEDS: amiodarone 200 mg Tablet PO (08:30)
[2024-06-12] MEDS: budesonide 0.5 mg/2 mL Neb INHALATION (08:45)
[2024-06-12] MEDS: linezolid 600 mg Tablet PO (11:47)
[2024-06-12] MEDS: enoxaparin 60 mg/0.6 mL Syringe SUBCUT (11:47)
--- NOTE | 2024-06-12 12:44 | PM.DCS ---
Discharge Providers Date of Admission: 06/11/24 11:40 Date of Discharge: June 12, 2024 Attending Provider at Admission: Reji Gray MD Attending Provider at Discharge: John Liao MD Primary Care Provider: Dorie Nichols NP Diagnoses at Discharge Discharge Diagnosis (1) Pulmonary embolism: Status: Acute (2) Aspiration pneumonia: Status: Acute (3) Systolic congestive heart failure: Status: Acute (4) Constipation: Status: Acute (5) Ileus: Status: Acute (6) HTN (hypertension): Status: Acute Qualifiers: Hypertension type: essential hypertension Qualified Code(s): I10 - Essential (primary) hypertension (7) Sinus pause: Status: Acute (8) Atrial fibrillation: Status: Acute Qualifiers: Atrial fibrillation type: paroxysmal Qualified Code(s): I48.0 - Paroxysmal atrial fibrillation (9) Anticoagulation adequate: Status: Acute Permanent problem details: Eliquis (10) COPD (chronic obstructive pulmonary disease): Status: Acute Qualifiers: COPD type: unspecified COPD Qualified Code(s): J44.9 - Chronic obstructive pulmonary disease, unspecified Reason for Visit Reason for Visit: pnuemonia not improving Brief History: History as per HPI: Jonathan Sultana is a 79 year old male with CAD, left bundle branch block, diastolic CHF, COPD, diastolic CHF, atrial fibrillation on Eliquis, CKD history of carotid artery stenosis, hyperlipidemia, type 2 diabetes mellitus, obstructive sleep apnea, hypertension, MRSA nares negative sputum culture showed Pseudomonas earlier this year has been struggling with persistent pneumonia came in for worsening of shortness of breath. Patient has finished 2 rounds of doxycycline and Levaquin without any significant improvement. In the ER he has been diagnosed with left-sided subsegmental PE without right heart strain he is doing well on his home oxygen requirement of 4 L he is afebrile no leukocytosis. Patient is stating that he has been dealing with pneumonia for last 2 to 3 weeks, he has finished 7 days of antibiotics each levofloxacin and doxycycline without any significant improvement, he is endorsing coughing and choking on food stating that he cannot wear dentures and tries to eat softer diet. He has not noticed any fever, nausea vomiting or diarrhea in fact he is endorsing constipation and sometimes notices blood when he wipes himself. He thinks he probably has hemorrhoids. His oxygen requirement has not worsened he has stayed compliant with his Eliquis. He has been feeling lethargic and fatigued with shortness of breath that what prompted his visit to the ER. Patient is also endorsing constipation stating that he has tried multiple stool softeners but without any significant improvement previous remote colonoscopy did not show any sign of cancer. He is endorsing incomplete evacuation of stool. I have requested sputum culture start him on double antipseudomonal coverage previous MRSA nares negative Request modified barium swallow put him on pur?ed diet Held lisinopril for worsening of creatinine Patient is hemodynamically stable no active complaints at all He has received cefepime and linezolid in the ER along hydralazine for hypertension Hospital Course Hospital Course Patient was admitted to the hospital further evaluation and management of respiratory distress on admission in setting of possible event of aspiration, acute pulmonary embolism with concerns for mild congestive heart failure with a known EF of around 45%. With concerns for possible episodes of pneumonia he was started on broad-spectrum antibiotics as per his old culture results growing Pseudomonas. Patient did not have any leukocytosis or fever. Patient remained on his baseline oxygen supplementation. It is believed clinically patient has very low suspicion of pneumonia. He was treated with diuretics. On admission he was also found to have elevated blood pressures for which his antihypertensives have been adjusted. Patient was also complaining of constipation. Abdominal imaging was consistent with constipation and mild ileus. He was treated with aggressive bowel regimen and enema after which he had soft bowel movements. He is been discharged in hemodynamically stable condition on oral antibiotics as per family's request, increased dose of diuretic, adjusted antihypertensive. She was seen by speech therapist and has been advised dysphagia level 4 diet with thickened liquids. Physical Exam Narrative: Patient is awake and alert Currently on 4 L saturating 100% Hemodynamically stable Hypertensive No sign of stroke Looks clinically dehydrated I do not appreciate any swelling of lower extremity Bilateral breath sounds with rhonchi crackles without any wheeze No respiratory accessory muscle use 8 S1, S2 variable A-fib GCS 15 Nonfocal neuroexam Pleasant and cooperative Discharge Data Studies Completed and Pending Completed Studies During Hospitalization Category Date Time Status CT abdomen pelvis wo con [id number] Routine Cat Scan 06/11/24 11:28 Completed CTA chest [CT angio chest PE protcl [id number]] Stat Cat Scan 06/10/24 19:36 Completed XR KUB portable [id number] Routine Exams 06/11/24 10:48 Completed Pending at discharge Category Date Time Status FL barium swallow modifd [id number] Routine Exams 06/14/24 09:30 Ordered Blood Culture Stat Lab 06/10/24 19:54 Results Fungitell Glucan Assay (Blood) Routine Lab 06/11/24 11:49 Received Sputum Culture and Gram Stain Routine Lab 06/10/24 22:08 Results Radiology Impressions Chest CTA 06/10/24 19:36 IMPRESSION: 1. Left lower lobe segmental/subsegmental PE. Possible left basilar pulmonary infarcts. No evidence of right heart strain. 2. Left lower lobe aspiration pneumonia. Follow-up CT of the chest in 4-6 weeks is recommended to assess for resolution. 3. Severe emphysematous changes. The presence of pulmonary emphysema on CT is an independent risk factor for lung cancer. In the absence of a history or active diagnosis of lung cancer, it is recommended that this patient with emphysema be evaluated for enrollment in a low dose CT lung cancer screening program. The findings were verbally communicated by telephone with Dr. Raymond at 9:51 PM [employer] [employer] on 06/10/2024. KUB X-Ray 06/11/24 10:48 Impression: 1. Moderate generalized ileus. 2. Moderate fecal material in the descending colon and rectosigmoid colon. Abdomen/Pelvis CT 06/11/24 11:28 IMPRESSION: 1. Dilated stool-filled rectum measuring up to 7.4 cm. No sign of stercoral proctitis. 2. Mild gastric distension. Correlate with timing of last ingestion to assess for gastroparesis or gastric outlet obstruction. 3. Enlarged prostate and markedly trabeculated bladder wall consistent with chronic partial bladder outlet obstruction and muscular hypertrophy. 4. Chronic bilateral lung disease characterized by reticular opacity and consolidation in the inferior lower lobes, present since 10/15/2020. Consolidation in the left lower lobe is mildly progressive. A superimposed acute process such as infection or aspiration cannot be excluded. There is a background of severe centrilobular emphysema. 5. Incidental findings above. COMMENTS: Consistent with the [employer]'s Incidental Findings Committee white paper (J Am Parisa Radiol 2018): Any incidental renal lesion less than 1 cm or classified as too small to characterize, or any incidental cystic renal lesion characterized as simple-appearing, is likely benign. No follow-up imaging is recommended for these lesions per consensus recommendations based on imaging criteria. Laboratory Results WBC 6.53 10^3/uL (3.29-11.43) 06/12/24 02:40 RBC 3.97 10^6/uL (3.85-5.65) 06/12/24 02:40 Hgb 10.80 g/dL (11.27-16.99) L 06/12/24 02:40 Hct 33.7 % (37-53) L 06/12/24 02:40 MCV 84.9 fl (82-101) 06/12/24 02:40 MCH 27.2 pg (27-33) 06/12/24 02:40 MCHC 32.0 g/dL (30-55) 06/12/24 02:40 RDW 15.4 % (12.1-15.1) H 06/12/24 02:40 Plt Count 150 10^3/cmm (157-399) L 06/12/24 02:40 MPV 11.0 fL (7.4-10.4) H 06/12/24 02:40 Neut % (Auto) 62.7 % 06/12/24 02:40 Lymph % (Auto) 17.6 % 06/12/24 02:40 [place] % (Auto) 13.0 % 06/12/24 02:40 Eos % (Auto) 5.2 % 06/12/24 02:40 Baso % (Auto) 0.9 % 06/12/24 02:40 Neut # (Auto) 4.09 10^3/uL (1.8-7.7) 06/12/24 02:40 Lymph # (Auto) 1.2 10^3/uL (0.8-4.8) 06/12/24 02:40 [place] # (Auto) 0.9 10^3/uL (0.2-0.9) 06/12/24 02:40 Eos # (Auto) 0.3 10^3/uL (0.0-0.8) 06/12/24 02:40 Baso # (Auto) 0.1 10^3/uL (0.0-0.1) 06/12/24 02:40 Nucleated RBC % (auto) 0 % 06/12/24 02:40 Nucleated RBCs # 0.0 /100WBC 06/12/24 02:40 D-Dimer 0.41 ug/mLFEU (0-0.59) 06/11/24 11:49 Sodium 138 mmol/L (136-145) 06/12/24 02:40 Potassium 3.7 mmol/L (3.5-5.1) 06/12/24 02:40 Chloride 102 mmol/L (98-107) 06/12/24 02:40 Carbon Dioxide 25 mmol/L (22-29) 06/12/24 02:40 Anion Gap 14.7 (5-19) 06/12/24 02:40 BUN 27 mg/dL (8-23) H 06/12/24 02:40 Creatinine 1.2 mg/dL (0.7-1.2) 06/12/24 02:40 GFR Calculation Not Reportable 06/12/24 02:40 Glucose 90 mg/dL (65-115) 06/12/24 02:40 POC Glucose 113 mg/dL (70-110) H 06/12/24 06:08 Calculated Osmolality 291 mOsm/kg (285-295) 06/12/24 02:40 Lactic Acid 0.9 mmol/L (0.5-2.2) 06/10/24 19:50 Calcium 8.5 mg/dL (8.5-10.5) 06/12/24 02:40 Phosphorus 3.0 mg/dL (2.5-4.5) 06/12/24 02:40 Magnesium 2.3 mg/dL (1.7-2.3) 06/12/24 02:40 Total Bilirubin 0.2 mg/dL (0.15-1.2) 06/12/24 02:40 AST 16 U/L (0-40) 06/12/24 02:40 ALT 11 U/L (0-41) 06/12/24 02:40 Alkaline Phosphatase 86 U/L (40-130) 06/12/24 02:40 Lactate Dehydrogenase 158 U/L (135-225) 06/11/24 11:49 NT-Pro-B Natriuret Pep 250 pg/mL (0-450) 06/10/24 17:49 Total Protein 5.4 g/dL (6.6-8.7) L 06/12/24 02:40 Albumin 3.4 g/dL (3.5-5.2) L 06/12/24 02:40 Globulin 2.0 g/dL (1.3-4.6) 06/12/24 02:40 Procalcitonin 0.09 ng/mL (0-0.5) 06/12/24 02:40 Urine Color Yellow (Yellow) 06/10/24 20:24 Urine Appearance Clear (CLEAR) 06/10/24 20:24 Urine pH 6.5 (5-7) 06/10/24 20:24 Ur Specific [place] 1.020 (1.005-1.030) 06/10/24 20:24 Urine Protein Negative (Negative) 06/10/24 20:24 Urine Glucose (UA) 3+ (Normal) H 06/10/24 20:24 Urine Ketones Trace (Negative) 06/10/24 20:24 Urine Blood Negative (Negative) 06/10/24 20:24 Urine Nitrate Negative (Negative) 06/10/24 20:24 Urine Bilirubin Negative (Negative) 06/10/24 20:24 Urine Urobilinogen 1.0 mg/dL (Negative) 06/10/24 20:24 Ur Leukocyte Esterase Negative (Negative) 06/10/24 20:24 Urine RBC 0-2 /hpf (0-2) 06/10/24 20:24 Urine WBC 0-5 /hpf (0-5) 06/10/24 20:24 Ur Squamous Epith Cells 0-5 /hpf (0-5) 06/10/24 20:24 Amorphous Sediment Not Reportable 06/10/24 20:24 Urine Bacteria None seen /hpf (NONE) 06/10/24 20:24 Hyaline Casts 0-4 /lpf H 06/10/24 20:24 Nasal MRSA (PCR) Not detected (Negative) 06/11/24 11:23 Coronavirus (PCR) Negative (Negative) 06/10/24 20:55 Influenza A (PCR) Negative (Negative) 06/10/24 20:55 Influenza Type B (PCR) Negative (Negative) 06/10/24 20:55 RSV (PCR) Negative (Negative) 06/10/24 20:55 Vitals Last Vital Signs Temp 97.6 F 06/12/24 07:42 Pulse 68 06/12/24 09:10 Resp 18 06/12/24 08:46 BP 107/60 06/12/24 07:42 Pulse Ox 97 06/12/24 08:46 O2 Del Method Nasal Cannula 06/12/24 08:46 O2 Flow Rate 4 06/12/24 08:46 Discharge Plan Discharge Patient Disposition: Home Condition: Stable Prescriptions: New amlodipine 5 mg Tablet 5 mg PO DAILY Qty: 30 0RF hydralazine 50 mg Tablet 50 mg PO TID Qty: 90 0RF levofloxacin 750 mg tablet 750 mg PO Q24H 7 Days Qty: 7 0RF Continued alendronate [Fosamax] 70 mg tablet 70 mg PO Q7D Rx Instructions: ON SUNDAYS atorvastatin 20 mg tablet 20 mg PO QPM Jardiance 10 mg tablet 10 mg PO QAM lorazepam 0.5 mg tablet 0.5 mg PO BEDTIME PRN (Reason: Anxiety) Yupelri 175 mcg/3 mL solution for nebulization 175 mcg inhalation DAILY Qty: 90 3RF budesonide [Pulmicort] 0.25 mg/2 mL suspension for nebulization 0.5 mg inhalation BID Qty: 10 3RF arformoterol 15 mcg/2 mL solution for nebulization 2 ml inhalation BID 30 Days Qty: 120 4RF levalbuterol tartrate [Xopenex HFA] 45 mcg/actuation HFA aerosol inhaler 1 puff INHALATION Q6H PRN (Reason: Shortness Of Breath) Qty: 15 5RF (DME) Oxymizer Pendant 6L with exertion See Rx Instructions .Route .MEDSUPPLY Qty: 1 0RF Rx Instructions: Suuplemental oxygen- 6L with Oymizer during exertion and 4L/NC at rest. potassium chloride 20 mEq Tablet Extended Release 20 meq PO DAILY@07 tamsulosin 0.4 mg capsule 0.4 mg PO QAM calcium carbonate-vitamin D3 [Oyster Shell Calcium-Vit D3] 500 mg(1,250mg) -200 unit tablet 500 tab PO DAILY@07 roflumilast [Daliresp] 500 mcg Tablet 500 mcg PO DAILY@07 ropinirole 0.25 mg Tablet 0.25 mg PO QPM Rx Instructions: if symptoms persist - may increase cholecalciferol (vitamin D3) 75 mcg (3,000 unit) tablet 25 mcg PO QAM clopidogrel 75 mg Tablet 75 mg PO DAILY 30 Days Qty: 30 2RF sodium chloride 3 % solution for nebulization 4 ml inhalation DAILY amiodarone 200 mg tablet 200 mg PO DAILY Qty: 60 0RF metoprolol tartrate 25 mg tablet 12.5 mg PO DAILY PRN (Reason: hr more than 100 bpm) Qty: 30 0RF guaifenesin 400 mg Tablet 400 mg PO BID Eliquis 5 mg tablet 5 mg PO BID@07,21 Qty: 180 3RF Rx Instructions: 10 mg BID for 7 days f/b 5 mg BID Changed furosemide [Lasix] 20 mg tablet 40 mg PO QAM Qty: 60 0RF Discontinued lisinopril 20 mg tablet 20 mg PO QAM Discharge Orders: Discharge Order (Routine); Ordered 06/12/24 Ordered By: John Liao Referrals: Dorie Nichols [employer] [Primary Care Provider] - 4-7 days (We have notified your physician's clinic of the need for a follow-up appointment to be scheduled. If you have not heard from them within the next 2 business days, please call them directly. ) Discharge Diet: As Directed Discharge Activity: Resume usual activity and Increase activity as tolerated Patient Instructions: Constipation - Adult, Hydralazine (By mouth), Amlodipine (By mouth), Levofloxacin (By mouth), Bradycardia (DC), Opioid Safety Activity Restrictions/Additional Instructions: Dysphagia level 4 diet with thickened fluids Do not take lisinopril anymore. Instead take hydralazine 50 mg 3 times a day along with amlodipine 5 mg oral daily. Dose of Lasix has been changed to 40 mg daily. Take Eliquis 10 mg twice daily for next 7 days followed by 5 mg twice daily. Goal blood pressure of less than 140/90 mmHg. Discharge Attestations Time Spent in Discharge Care*: greater than 30 min Specific Discharge Activities: educating patient, discussing with pcp/other providers, discussing with nurse case manager/social workers/dc planners, documenting/other paperwork and evaluating patient/reviewing data Status at Discharge: Cognitive status at discharge: cognitively intact, Behavioral status at discharge: cooperative, Functional status at discharge: uses cane/walker, Overall status at discharge: patient is back to baseline Quality Metrics Clinical Quality Measures [ No reported AMI, CVA or VTE this stay] Coding Level of Care Code 74086 Total time (in minutes) for Discharge: 60 Diagnoses Pulmonary embolism I26.99 Aspiration pneumonia J69.0 Systolic congestive heart failure I50.20 Constipation K59.00 Ileus K56.7 Essential hypertension I10 Hypertension type: essential hypertension Sinus pause I45.5 Paroxysmal atrial fibrillation I48.0 Atrial fibrillation type: paroxysmal Anticoagulation adequate Z79.01 Chronic obstructive pulmonary disease, unspecified COPD type J44.9 COPD type: unspecified COPD
[2024-06-12] MEDS: pantoprazole 40 mg SDV IVP (14:26)
[2024-06-14 10:38] LABS: Glucose Point of Care 133 mg/dL (70-110)
== END 2024-06-12 15:04 | disposition home or self-care (01) | DRG 175 ==
LOC: ER 22:48 → MEDSURG 22:55
PROVIDERS: Emergency Medicine; Admitting Provider Internal Medicine; Emergency Provider Emergency Medicine; PCP Nurse Practitioner Family; Visit Provider Student in an Organized Health Care Education/Training Program
DX: I26.94 Multiple subsegmental thrombotic pulmonary emboli without acute cor pulmonale (principal); J69.0 Pneumonitis due to inhalation of food and vomit; I13.0 Hypertensive heart and chronic kidney disease with heart failure and stage 1 through stage 4 chronic kidney disease, or unspecified chronic kidney disease; I50.32 Chronic diastolic (congestive) heart failure; K56.7 Ileus, unspecified; N17.9 Acute kidney failure, unspecified; I25.10 Atherosclerotic heart disease of native coronary artery without angina pectoris; I44.7 Left bundle-branch block, unspecified; N18.9 Chronic kidney disease, unspecified; E13.22 Other specified diabetes mellitus with diabetic chronic kidney disease; I48.0 Paroxysmal atrial fibrillation; E78.5 Hyperlipidemia, unspecified; G47.33 Obstructive sleep apnea (adult) (pediatric); K59.00 Constipation, unspecified; N28.1 Cyst of kidney, acquired; J43.9 Emphysema, unspecified; M81.0 Age-related osteoporosis without current pathological fracture; N40.0 Benign prostatic hyperplasia without lower urinary tract symptoms; R13.10 Dysphagia, unspecified; R00.0 Tachycardia, unspecified; E86.0 Dehydration; K21.9 Gastro-esophageal reflux disease without esophagitis; G25.81 Restless legs syndrome; Z99.81 Dependence on supplemental oxygen; Z79.01 Long term (current) use of anticoagulants; Z79.02 Long term (current) use of antithrombotics/antiplatelets; Z79.84 Long term (current) use of oral hypoglycemic drugs; Z86.16 Personal history of COVID-19; Z85.828 Personal history of other malignant neoplasm of skin; Z87.891 Personal history of nicotine dependence; Z83.3 Family history of diabetes mellitus; Z82.49 Family history of ischemic heart disease and other diseases of the circulatory system
CPT/HCPCS: 0241U; 36415; 36416; 51798; 71275; 74018; 74176; 80048; 80053; 81001; 82962; 83605; 83615; 83735; 83880; 84100; 84145; 85025; 85378; 87040; 87070; 87077; 87186; 87205; 87449; 92610; 94640; 94664; 94669; 96365; 96367; 96372; 96375; 97116; 97161; 99285; G0378; J0360; J0692; J1650; J1815; J2020; J2470; J2543; J7608; J7614; J7626; J7644; Q0144

== ENCOUNTER → 2024-06-23 09:25 | Outpatient (BNVA) | payer OTHER, SELFPAY | PROVIDERS: PCP Nurse Practitioner Family; Visit Provider Internal Medicine Cardiovascular Disease | DX: I48.0 Paroxysmal atrial fibrillation (principal); I11.0 Hypertensive heart disease with heart failure; I50.20 Unspecified systolic (congestive) heart failure; Z98.890 Other specified postprocedural states; I25.5 Ischemic cardiomyopathy; R00.1 Bradycardia, unspecified; Z86.711 Personal history of pulmonary embolism; Z79.01 Long term (current) use of anticoagulants; Z87.891 Personal history of nicotine dependence | CPT/HCPCS: 99214 ==